=== PATIENT | female | born 1970 | race Caucasian/White ===

== ENCOUNTER 2019-11-22 09:25 | Emergency (ER) | payer MEDICARE, MEDICAID, SELFPAY ==
--- NOTE | ~2019-11-22 | XR_ITS ---
EXAMINATION: XR knee RT min 4V DATE: 11/22/2019 09:55 INDICATION: Right knee pain with movement following injury while exercising with palpable pop. TECHNIQUE: Anteroposterior, 2 oblique, sunrise and crosstable lateral views of the affected knee were obtained COMPARISON: None. FINDINGS: Alignment is normal. No fracture. Joint spaces appear normal. No joint effusion/layering lipohemarth rosis. Soft tissues are unremarkable. IMPRESSION: 1. Normal right knee radiographs. Reviewed, dictated and finalized at location A.
[2019-11-22 09:28] VITALS: BP 126/85; PULSE 92; RESP 18; TEMP 36.1; O2SAT 99
--- NOTE | 2019-11-22 10:05 | ED.LOWEXIN ---
HPI - Extremity Injury (Lower) General Chief Complaint: Extremity Injury, Lower Stated Complaint: R knee pain Time Seen by Provider: 11/22/19 10:05 Source: patient Mode of arrival: ambulatory History of Present Illness HPI Narrative: This patient is a 49 year old female who presents for evaluation of right knee pain. PAtient states she was exercising yesterday and started feeling tension to medial right knee. She has pain with movement of the knee. She took 2 aleve yesterday for her pain. MD complaint: knee injury Related Data Home Medications Medication Instructions Recorded Confirmed albuterol sulfate [Ventolin HFA] INHALATION 11/22/19 aripiprazole mg 11/22/19 clonazepam 11/22/19 dexlansoprazole [Dexilant] mg 11/22/19 escitalopram oxalate mg 11/22/19 gabapentin 11/22/19 lamotrigine 11/22/19 lithium carbonate 11/22/19 meclizine mg 11/22/19 rosuvastatin mg 11/22/19 zaleplon mg 11/22/19 Allergies Allergy/AdvReac Type Severity Reaction Status Date / Time No Known Allergies Allergy Unknown Verified 11/22/19 09:46 Review of Systems Review of Systems: All systems reviewed & are unremarkable except as noted in HPI and below Constitutional: Constitutional: Reports chills and Reports fever(s) PMFSH Past Medical History Medical History (Updated 11/22/19 @ 10:13 by Luba Gomez MD) Bipolar disorder COPD (chronic obstructive pulmonary disease) Family History Family History (Updated 10/10/17 @ 11:07 by DOCTOR UNKNOWN) Mother Family history of cardiovascular disease Family history of malignant neoplasm of gastrointestinal tract Depression Sibling Hypertension Family history of coronary artery disease Social History Social History Smoking status: Light tobacco smoker Gender identity (if verbalized by the patient): Female Exam Const: General: no acute distress and alert Orientation/consciousness: patient oriented x3 Eyes: EOM: EOMs intact bilaterally Resp: Effort & Inspection: normal respiratory effort Skin: General skin exam: normal color Rashes: no rashes Neuro: General: patient oriented x3 and moves all extremities Extrem: Other: pain with flexion of right knee, no swelling, no erythema, no deformity. TTP right medial knee Course Vital Signs Vital signs: Vital Signs Temperature 97 F L 11/22/19 09:28 Pulse Rate 92 11/22/19 09:28 Respiratory Rate 18 11/22/19 09:28 Blood Pressure 126/85 11/22/19 09:28 Pulse Oximetry 99 11/22/19 09:28 Temperature 97.5 F L 11/22/19 10:46 Pulse Rate 88 11/22/19 10:46 Respiratory Rate 16 11/22/19 10:46 Blood Pressure 139/70 11/22/19 10:46 Pulse Oximetry 99 11/22/19 10:46 MDM - Extremity Injury (Lower) Imaging Data Radiologist's impression: ITS Impressions Knee X-Ray 11/22/19 10:00 IMPRESSION: 1. Normal right knee radiographs. Discharge Plan Discharge Clinical Impression: Right knee sprain Qualifiers: Encounter type: initial encounter Involved ligament of knee: unspecified ligament Qualified Code(s): S83.91XA - Sprain of unspecified site of right knee, initial encounter Patient Disposition: Home, Self-Care Condition: Stable Instructions: Knee Sprain (ED), Knee Pain (ED) Additional Instructions: Continue to take aleve for your pain knee pain. Get a knee brace from a store such as [employer] for your knee. Follow up with your primary care physician. Prescriptions: New naproxen 500 mg tablet 500 mg PO BID PRN (Reason: pain) Qty: 20 RF: 0 No Action lamotrigine 150 mg tablet RF: 0 clonazepam 0.5 mg tablet RF: 0 meclizine 12.5 mg tablet RF: 0 lithium carbonate 300 mg capsule RF: 0 gabapentin 300 mg capsule RF: 0 zaleplon 10 mg capsule RF: 0 albuterol sulfate [Ventolin HFA] 90 mcg/actuation HFA aerosol inhaler INHALATION RF: 0 aripiprazole 5 mg tablet
[2019-11-22 10:46] VITALS: BP 139/70; PULSE 88; RESP 16; TEMP 36.4; O2SAT 99
== END 2019-11-22 10:50 | disposition home or self-care (01) ==
PROVIDERS: Emergency Provider General Practice; PCP Physician Assistant
DX: S83.91XA Sprain of unspecified site of right knee, initial encounter (principal); J44.9 Chronic obstructive pulmonary disease, unspecified; F31.9 Bipolar disorder, unspecified; F17.200 Nicotine dependence, unspecified, uncomplicated; X50.9XXA Other and unspecified overexertion or strenuous movements or postures, initial encounter
CPT/HCPCS: 73564; 99284

== ENCOUNTER 2020-10-17 16:43 | Emergency (ER) | payer MEDICARE, MEDICAID, SELFPAY ==
--- NOTE | ~2020-10-17 | XR_ITS ---
XR chest 1V portable DATE: 10/17/2020 17:32 INDICATION: Midsternal chest pain for 2 days, wheezing, shortness of breath. History of COPD and asth ma. TECHNIQUE: Portable upright AP chest on 10/17/2020 at 1735 hours COMPARISON: 02/26/2019 PA and lateral chest FINDINGS: Heart size is likely within normal range, not optimally evaluated on AP projection because of magnification. No hilar or mediastinal enlargement is evident. No pulmonary infiltrate or consolidation, pleural effusion or pulmonary vascular congestion or pneumo thorax is detected. IMPRESSION: No active disease Reviewed, dictated and finalized at location A. IMPRESSION: No active disease
[2020-10-17 16:49] VITALS: BP 149/87; PULSE 95; RESP 30; O2SAT 97
--- NOTE | 2020-10-17 17:08 | ED.SOB ---
HPI - SOB/Dyspnea General Chief Complaint: Shortness of Breath/Dyspnea Stated Complaint: SOB Time Seen by Provider: 10/17/20 16:53 Source: patient Mode of arrival: EMS Limitations: no limitations History of Present Illness HPI Narrative: This is a 50 year old female with history of anxiety and asthma who presents via EMS for evaluation of shortness of breath. She reports that she has been having sob, anxiety, cough x 3 days. She also reports chest lung tightness for 3 days. She reports she is having insurance issues so she does not have neb tx. She took klonopin today for her shortness of breath but it became worse. EMS found patient tachypneic so she was placed on CPAP, and she was given decadron with neb tx twice. She denies fever or chills. She is unsure if this is due to her anxiety or asthma. She does admit to drinking 2 beers today. Related Data Home Medications Medication Instructions Recorded Confirmed albuterol sulfate [Ventolin HFA] INHALATION 11/22/19 aripiprazole mg 11/22/19 clonazepam 11/22/19 dexlansoprazole [Dexilant] mg 11/22/19 escitalopram oxalate mg 11/22/19 gabapentin 11/22/19 lamotrigine 11/22/19 lithium carbonate 11/22/19 meclizine mg 11/22/19 rosuvastatin mg 11/22/19 zaleplon mg 11/22/19 Allergies Allergy/AdvReac Type Severity Reaction Status Date / Time No Known Allergies Allergy Unknown Verified 10/17/20 18:09 Review of Systems Review of Systems: All systems reviewed & are unremarkable except as noted in HPI and below PMFSH Past Medical History Medical History (Updated 10/17/20 @ 18:37 by Luba Gomez MD) Bipolar disorder COPD (chronic obstructive pulmonary disease) Family History Family History (Updated 10/10/17 @ 11:07 by DOCTOR UNKNOWN) Mother Family history of cardiovascular disease Family history of malignant neoplasm of gastrointestinal tract Depression Sibling Hypertension Family history of coronary artery disease Social History Social History Smoking status: Light tobacco smoker Gender identity (if verbalized by the patient): Female Exam Const: General: alert Orientation/consciousness: patient oriented x3 Other: patien tachypneic, anxiety Eyes: EOM: EOMs intact bilaterally Chest: Chest palpation & inspection: normal inspection of the chest Resp: Effort & Inspection: normal respiratory effort, no retractions and no use of accessory muscles Auscultation: clear to auscultation bilaterally Other: patient is able to speak in complete sentences Cardio: Rate: regular rate Rhythm: regular rhythm GI: GI Palp: Yes Soft to palpation, No Tenderness to palpation present (GI) and No Guarding due to palpation present (GI) Auscultation: normal bowel sounds Skin: General skin exam: normal color Rashes: no rashes Neuro: General: No patient oriented x3, No moves all extremities and CN's II-XI intact bilaterally Psych: Mental Status: mental status grossly normal Affect: normal affect Course Reevaluation(s) Reevaluation #1: Patient is sitting in bed comfortable. She is not tachypneic or wheezing. She has no shortness of breath. This appears to be asthma combined with her anxiety. This does not appear to be angina. I ambulated patient with pulse oximetry. Her oxygen saturation was 95-98% on room air while walking around entire nurses station. She states she is ready for discharge home. labs are unremarkable. Date: 10/17/20 Time: 18:33 Vital Signs Vital signs: Vital Signs Pulse Rate 95 10/17/20 16:49 Respiratory Rate 30 H 10/17/20 16:49 Blood Pressure 149/87 H 10/17/20 16:49 Pulse Oximetry 97 10/17/20 16:49 Pulse Rate 85 10/17/20 18:08 Respiratory Rate 18 10/17/20 18:08 Blood Pressure 124/73 10/17/20 18:08 Pulse Oximetry 95 10/17/20 18:08 MDM - SOB/Dyspnea Lab Data Attestation: I reviewed the patient's lab results. Result diagrams: 10/17/20 17:37 10/17/20
[2020-10-17 17:10] LABS: Base Excess ABG -4.6 mEq/l (+/-2.0); Carboxyhemoglobin 4.4 % THb (0-2.0); Device ROOM AIR; Fractional Inspired Oxygen 21 %; HCO3 ABG 18.4 mEq/l (22.0-26.0); Methemoglobin ABG 0.2 %THb (0-1.5); Modified Allen's Test Pass; Oxygen Saturation ABG 91.1 % (95.0-100.0); Oxyhemoglobin 85.6 % THb (90.0-100.0); PCO2 ABG 28.5 mmHg (35.0-45.0); PO2 ABG 57.6 mmHg (80.0-100.0); PO2 FiO2 Ratio Arterial Blood 2.74 %; Reduced Hemoglobin 9.8 %THb (0-5.0); Site Drawn LEFT RADIAL; Total Hemoglobin 13.3 g/dL (12.0-18.0); pH ABG 7.428 (7.350-7.450)
--- NOTE | 2020-10-17 17:31 | ECG_ITS ---
Measurements Intervals [place] Rate: 85 P: 13 IN: 139 QRS: 149 QRSD: 114 T: -8 QT: 375 QTc: 446 Interpretive Statements SINUS RHYTHM RIGHT AXIS DEVIATION INCOMPLETE RIGHT BUNDLE BRANCH BLOCK INFERIOR INFARCT, AGE INDETERMINATE NONSPECIFIC ST ELEVATION IN ANT/HIGH LAT LEADS BASELINE ARTIFACT- II, III, AVR, AVF, V1-V6 ABNORMAL ECG Electronically Signed On 10-17-2020 19:15:57 CDT by Sher Lui D.O.
[2020-10-17 17:42] LABS: Basophils Percent Auto 0.3 % (0.2-1.2); Eosinophils Absolute Auto 0.2 K/mm3 (0-0.3); Eosinophils Percent Auto 2.1 % (0-4.4); Hematocrit 38.3 % (37.0-47.0); Immature Granulocyte Absolute 0.03 K/mm3 (0.00-0.031); Immature Granulocyte Percent A 0.3 % (0-0.5); Lymphocytes Absolute Auto 1.28 K/mm3 (0.9-3.2); Lymphocytes Percent Auto 14.4 % (18.3-44.2); Mean Corpuscular HGB Conc 31.3 g/dl (32-36); Mean Corpuscular Hemoglobin 28.8 pg (26-34); Mean Corpuscular Volume 91.8 fl (80-100); Mean Platelet Volume 9.1 fl (7.4-10.4); Monocytes Absolute Auto 0.3 K/mm3 (0.1-0.6); Monocytes Percent Auto 3.6 % (2.6-8.5); Neutrophils Percent Auto 79.3 % (45.5-73.1); Platelet Count Result 241 k/mm3 (150-375); Red Blood Count 4.17 M/mm3 (4.2-5.4); Red Cell Distribution Width 15.2 % (11.5-14.5); White Blood Count 8.9 K/mm3 (4.5-10.0)
[2020-10-17 17:53] LABS: INR 0.9; Prothrombin Time 13.2 Seconds (11.1-14.7)
[2020-10-17 17:54] LABS: CRP < 0.5 mg/dL (<1.0); Magnesium 2.1 mg/dL (1.6-2.3); Partial Thromboplastin Time 24.8 SECONDS (22.3-36.8)
[2020-10-17 18:03] LABS: Troponin I < 0.012 ng/mL (0.000-0.034)
[2020-10-17 18:05] LABS: D Dimer 0.27 ug/mL (<0.48)
[2020-10-17 18:07] VITALS: O2SAT 95
[2020-10-17 18:08] VITALS: BP 124/73; PULSE 85; RESP 18; O2SAT 95
[2020-10-17 18:08] LABS: Alanine Aminotransferase 18 U/L (4-35); Albumin Level 4.5 g/dL (3.5-5.1); Alkaline Phosphatase 66 U/L (38-126); Anion Gap 11 mmol/L (8-16); Aspartate Amino Transferase 37 U/L (14-36); Bilirubin,Total 0.1 mg/dL (0.2-1.3); Blood Urea Nitrogen 5 mg/dL (7-17); Calcium 9.2 mg/dL (8.4-10.2); Carbon Dioxide 22 mmol/L (22-30); Chloride 110 mmol/L (98-107); Estimated Glomerular Filt Rate > 60; Glucose 105 mg/dL (65-105); Potassium 3.9 mmol/L (3.4-5.0); Sodium 143 mmol/L (137-145)
[2020-10-17 18:13] VITALS: PULSE 84; RESP 18; O2SAT 95
[2020-10-17 18:16] LABS: NT Pro B Type Natriuretic Pept 107 PG/ML (5-100)
[2020-10-17 19:03] VITALS: BP 124/73; PULSE 85; RESP 18; O2SAT 99
== END 2020-10-17 19:09 | disposition home or self-care (01) ==
PROVIDERS: Emergency Provider General Practice; PCP Physician Assistant
DX: J45.901 Unspecified asthma with (acute) exacerbation (principal); J44.9 Chronic obstructive pulmonary disease, unspecified; F17.200 Nicotine dependence, unspecified, uncomplicated; F31.9 Bipolar disorder, unspecified; F41.9 Anxiety disorder, unspecified; I45.10 Unspecified right bundle-branch block; R94.31 Abnormal electrocardiogram [ECG] [EKG]
CPT/HCPCS: 36415; 36600; 71045; 80053; 82375; 82805; 83050; 83735; 83880; 84484; 85025; 85380; 85610; 85730; 86140; 93005; 99284

== ENCOUNTER 2020-12-19 09:58 | Emergency (ER) | payer MEDICARE, MEDICAID, SELFPAY ==
--- NOTE | 2020-12-19 10:00 | PC.NURSE ---
left before triage. did not want to wait for exam room
== END 2020-12-19 10:00 | disposition left against medical advice (07) ==
PROVIDERS: PCP Physician Assistant
DX: Z53.21 Procedure and treatment not carried out due to patient leaving prior to being seen by health care provider (principal)
CPT/HCPCS: 99199

== ENCOUNTER 2021-01-20 23:02 | Emergency (ER) | payer MEDICARE, MEDICAID, SELFPAY ==
--- NOTE | ~2021-01-20 | CT_ITS ---
EXAMINATION: CT abdomen pelvis w con INDICATION: Left lower quadrant pain and rectal bleeding TECHNIQUE: Computed tomographic images of the abdomen and pelvis were obtained after the administrati on of 100 cc of Omnipaque 350 intravenous contrast. The dose-length product (DLP) was 1163.97 mGy-cm. Automated exposure control and iterative reconstruction technique were employed. COMPARISON: None available FINDINGS: Minimal dependent atelectasis is present in the lung bases. The heart size is normal. There is a large sliding hiatal hernia. Cysts of the liver measure up to 2.2 cm in the left hepatic lobe. The spleen, pancreas, gallbladder, and adrenal glands are normal. There is mild enlargement of the co mmon bile duct which measures up to 10 mm. There is a 7 mm nonobstructing stone of the right kidney u pper pole. There is a 5 mm nonobstructing stone of the left kidney upper pole. A circumaortic left re nal vein is noted. No pathologically enlarged abdominal or pelvic lymph nodes are identified. There i s no free intraperitoneal gas or evidence of bowel obstruction. There is a small fat-containing umbil ical hernia. An intramural fibroid of the anterior uterine body is noted. IMPRESSION: 1. No CT correlate for the patient's symptoms. 2. Mild enlargement of the common bile duct of unclear etiology or significance given the essentially normal liver function tests. Recommend correlation for right upper quadrant tenderness and consider further evaluation with ultrasound, MRCP, or endoscopy. 3. Bilateral nonobstructing nephrolithiasis. 4. Large sliding hiatal hernia. Reviewed, dictated and finalized at location B. IMPRESSION: 1. No CT correlate for the patient's symptoms. 2. Mild enlargement of the common bile duct of unclear etiology or significance given the essentially normal liver function tests. Recommend correlation for r ight upper quadrant tenderness and consider further evaluation with ultrasound, MRCP, or endoscopy. 3. Bilateral nonobstructing nephrolithiasis. 4. Large sliding hiatal hernia.
[2021-01-20 23:07] VITALS: BP 108/67; PULSE 81; RESP 18; TEMP 36.8; O2SAT 95
--- NOTE | 2021-01-20 23:18 | ED.GENADULT ---
HPI - General Adult General Chief complaint: Unspecified Stated complaint: rectal bleeding Time Seen by Provider: 01/20/21 23:07 History of Present Illness HPI narrative: Patient 50-year-old female presents the emergency department with chief complaint of rectal bleeding. Patient reports that for some time she has been having bouts of blood in her stool patient reports that she has noticed that at times when she goes to the bathroom there is blood that appears similar to like when she would have a. In the toilet water the patient also reports that there has been blood streaked on the stool patient states this been going on for over a month but today decided that it was time to possibly come to the emergency department to be evaluate. 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 Patient reports that this is unchanged since she has been seen by her doctors and they will order further testing on her Related Data Home Medications Medication Instructions Recorded Confirmed albuterol sulfate [Ventolin HFA] INHALATION 11/22/19 aripiprazole mg 11/22/19 clonazepam 11/22/19 dexlansoprazole [Dexilant] mg 11/22/19 escitalopram oxalate mg 11/22/19 gabapentin 11/22/19 lamotrigine 11/22/19 lithium carbonate 11/22/19 meclizine mg 11/22/19 rosuvastatin mg 11/22/19 zaleplon mg 11/22/19 Allergies Allergy/AdvReac Type Severity Reaction Status Date / Time No Known Allergies Allergy Unknown Verified 01/20/21 23:18 Review of Systems Review of Systems: Narrative: A 10 system review of systems was completed on the patient and is negative except for what is stated in the HPI. Nursing and ancillary documentation was reviewed. [facility] Past Medical History Medical History Bipolar disorder COPD (chronic obstructive pulmonary disease) Family History Family History Mother Family history of cardiovascular disease Family history of malignant neoplasm of gastrointestinal tract Depression Sibling Hypertension Family history of coronary artery disease Social History Social History Smoking status: Light tobacco smoker Gender identity (if verbalized by the patient): Female Exam Narrative: Exam Narrative: GENERAL: Well-appearing, well-nourished, and in no acute distress. HEAD: Normocephalic, atraumatic. EYES: PERRLA and EOMI. ENT: Nares clear, no rhinorrhea or epistaxis. Mucous membranes moist. NECK: Supple. CHEST: Clear to auscultation. No respiratory distress. HEART: Regular rate and rhythm. No murmur heard. Normal peripheral pulses. ABDOMEN: Soft, tender to palpation in the left lower quadrant, nondistended, normal active bowel sounds. : Rectal exam was negative for blood EXTREMITIES: Normal range of motion. No edema. SKIN: Warm, dry, no rash. NEURO: No focal deficits. Alert and oriented x3. PSYCH: Normal mood and affect. Course Vital Signs Vital signs: Vital Signs Temperature 36.8 C 01/20/21 23:07 Pulse Rate 81 01/20/21 23:07 Respiratory Rate 18 01/20/21 23:07 Blood Pressure 108/67 01/20/21 23:07 Pulse Oximetry 95 01/20/21 23:07 Temperature 36.8 C 01/20/21 23:07 Pulse Rate 81 01/20/21 23:07 Respiratory Rate 18 01/20/21 23:07 Blood Pressure 108/67 01/20/21 23:07 Pulse Oximetry 95 01/20/21 23:07 Medical Decision Making Vital Signs Vital Signs: Vital Signs Temperature 36.8 C 01/20/21 23:07 Pulse Rate 81 01/20/21 23:07 Respiratory Rate 18 01/20/21 23:07 Blood Pressure 108/67 01/20/21 23:07 Pulse Oximetry 95 01/20/21 23:07
[2021-01-20] MEDS: SODIUM CHLORIDE 0.9% IV 1,000 ML 999 ML IV CONT (23:45)
[2021-01-20] MEDS: ONDANSETRON INJ 4 MG/2 ML VIAL IV PUSH (23:45)
[2021-01-20 23:49] LABS: Basophils Percent Auto 0.4 % (0.2-1.2); Eosinophils Absolute Auto 0.2 K/mm3 (0-0.3); Eosinophils Percent Auto 2.7 % (0-4.4); Hematocrit 34.9 % (37.0-47.0); Hemoglobin 10.5 g/dL (12.0-15.0); Immature Granulocyte Absolute 0.01 K/mm3 (0.00-0.031); Immature Granulocyte Percent A 0.1 % (0-0.5); Lymphocytes Absolute Auto 1.98 K/mm3 (0.9-3.2); Mean Corpuscular HGB Conc 30.1 g/dl (32-36); Mean Corpuscular Hemoglobin 26.4 pg (26-34); Mean Corpuscular Volume 87.7 fl (80-100); Monocytes Absolute Auto 0.5 K/mm3 (0.1-0.6); Monocytes Percent Auto 7.6 % (2.6-8.5); Neutrophils Absolute Auto 4.3 K/mm3 (1.3-6.7); Neutrophils Percent Auto 61.2 % (45.5-73.1); Platelet Count Result 258 k/mm3 (150-375); Red Blood Count 3.98 M/mm3 (4.2-5.4); Red Cell Distribution Width 16.1 % (11.5-14.5); White Blood Count 7.1 K/mm3 (4.5-10.0)
[2021-01-20 23:51] LABS: Add Urine Microscopic? NO; Appearance Urine Clear (Clear); Bilirubin Urine Negative (Negative); Blood Urine Negative (Negative); Color Urine Colorless (Yellow); Glucose Urine UA Negative (Negative); Ketones Urine Negative (Negative); Leukocyte Esterase Ur Negative LEU/UL (Negative); Nitrate Urine Negative (Negative); Protein Urine Negative (Negative); Urobilinogen Urine Negative mg/dL (<2.0)
[2021-01-20 23:52] LABS: Alanine Aminotransferase 23 U/L (4-35); Albumin Level 4.3 g/dL (3.5-5.1); Alkaline Phosphatase 70 U/L (38-126); Anion Gap 12 mmol/L (8-16); Aspartate Amino Transferase 38 U/L (14-36); Bilirubin,Total 0.3 mg/dL (0.2-1.3); Blood Urea Nitrogen 6 mg/dL (7-17); Calcium 9.2 mg/dL (8.4-10.2); Carbon Dioxide 22 mmol/L (22-30); Chloride 101 mmol/L (98-107); Estimated CRCL calculation 106 ml/min; Estimated Glomerular Filt Rate > 60; Glucose 95 mg/dL (65-110); Lipase 190 U/L (23-300); Potassium 3.8 mmol/L (3.4-5.0); Sodium 135 mmol/L (137-145)
[2021-01-20 23:53] LABS: Lactic Acid Reflex 1.7 mmol/L (0.7-2.1)
[2021-01-21 00:06] LABS: Specific Grav Ur 1.003 (1.001-1.035)
[2021-01-21 00:36] VITALS: BP 95/61
[2021-01-21 00:45] VITALS: BP 110/69; PULSE 75; RESP 20; O2SAT 98
[2021-01-21 01:34] VITALS: BP 101/68; PULSE 72; RESP 15; O2SAT 96
== END 2021-01-21 01:34 | disposition home or self-care (01) ==
PROVIDERS: Emergency Provider Emergency Medicine; PCP Physician Assistant
DX: R10.84 Generalized abdominal pain (principal); J44.9 Chronic obstructive pulmonary disease, unspecified; F31.9 Bipolar disorder, unspecified; F17.200 Nicotine dependence, unspecified, uncomplicated
CPT/HCPCS: 36415; 74177; 80053; 81003; 81025; 83605; 83690; 85025; 96361; 96374; 99284; J2405; J7030; Q9967

== ENCOUNTER 2023-07-19 08:04 | Outpatient (CLI) | payer MEDICARE, MEDICAID, SELFPAY ==
--- NOTE | ~2023-07-19 | MM_ITS ---
EXAMINATION: MM screening neil BI w walt HISTORY: Screening TECHNIQUE: Craniocaudal and mediolateral oblique 3-D tomosynthesis images were obtained and synthetic 2-D images were generated. CAD analysis was submitted and interpreted. COMPARISON: Comparison to multiple prior studies sequentially, with oldest reviewed study dated 07/2015. BREAST PARENCHYMAL COMPOSITION: Breast composed of scattered areas of fibroglandular density FINDINGS: There is no evidence of suspicious mass, calcification, or architectural distortion to sugg est malignancy in either breast. There has been no suspicious interval change. IMPRESSION: 1. No mammographic evidence of malignancy. 2. Recommend routine screening mammography in one year. BI-RADS Category 1: Negative Reviewed, dictated and finalized at location A. [employer]
== END 2023-07-19 08:05 | disposition home or self-care (01) ==
PROVIDERS: Visit Provider Physician Assistant
DX: Z12.31 Encounter for screening mammogram for malignant neoplasm of breast (principal)
CPT/HCPCS: 77063; 77067

== ENCOUNTER 2023-08-25 08:34 | Emergency (ER) | payer MEDICARE, MEDICAID, SELFPAY ==
--- NOTE | ~2023-08-25 | XR_ITS ---
EXAMINATION: XR lumbar spine 2-3V DATE: 08/25/2023 09:28 INDICATION: Low back pain TECHNIQUE: Anteroposterior and lateral views of the lumbar spine, and cone-down lateral view of the l umbosacral junction were obtained. COMPARISON: Lumbar spine radiographs dated 10/17/[address] abdomen and pelvis dated 01/21/2021 FINDINGS: 12 degrees lumbar levoscoliosis. 4 mm anterolisthesis L4 on L5. Vertebral body heights are normal. Mu ltilevel mild disc height loss from T9-T10 through L5-S1 relatively sparing T11-T12. Moderate to yaneli re facet osteoarthritis bilaterally at L4-L5 and L5-S1. Mild facet osteoarthritis and more cephalad l umbar spine. Mild to moderate bilateral sacroiliac osteoarthritis. Bilateral nephrolithiasis with 5 m m stone the upper pole of the right kidney and 3 mm stone at the upper pole the left kidney. Visualiz ed posterior lung bases are clear. Normal bowel gas pattern. IMPRESSION: 1. Mild lumbar levoscoliosis with mild spondylosis. 2. Bilateral nephrolithiasis. Reviewed, dictated and finalized at location A. [place] [employer]
[2023-08-25] MEDS: SODIUM CHLORIDE 0.9% IV 1,000 ML 999 ML IV CONT (09:11)
[2023-08-25] MEDS: KETOROLAC 30 MG/ML VIAL (*BKC) IV PUSH (09:11)
[2023-08-25] MEDS: diazePAM INJ (*CRX) 10 MG/2 ML SYRINGE 5 MG IV PUSH (09:12)
[2023-08-25 09:35] VITALS: BP 110/80; PULSE 78; RESP 16; TEMP 36.6; O2SAT 100
[2023-08-25 09:44] LABS: Appearance Urine Clear (Clear); Bilirubin Urine Negative (Negative); Blood Urine Negative (Negative); Color Urine Yellow (Yellow); Glucose Urine UA Negative (Negative); Ketones Urine Negative (Negative); Leukocyte Esterase Ur Negative LEU/UL (Negative); Nitrate Urine Negative (Negative); Protein Urine Negative (Negative); Specific Grav Ur 1.009 (1.001-1.035); Urobilinogen Urine 0.2 mg/dL (<2.0)
[2023-08-25 09:52] LABS: Add Urine Microscopic? NO
[2023-08-25 09:55] VITALS: BP 106/78; PULSE 78; RESP 16; TEMP 36.5; O2SAT 98
[2023-08-25 10:06] LABS: Basophils Percent Auto 0.4 % (0.2-1.2); Eosinophils Absolute Auto 0.2 K/mm3 (0-0.3); Eosinophils Percent Auto 2.6 % (0-4.4); Hematocrit 39.8 % (37.0-47.0); Immature Granulocyte Absolute 0.02 K/mm3 (0.00-0.031); Immature Granulocyte Percent A 0.3 % (0-0.5); Lymphocytes Absolute Auto 1.19 K/mm3 (0.9-3.2); Lymphocytes Percent Auto 14.9 % (18.3-44.2); Mean Corpuscular HGB Conc 30.2 g/dl (32-36); Mean Corpuscular Hemoglobin 29.6 pg (26-34); Mean Platelet Volume 8.8 fl (7.4-10.4); Monocytes Absolute Auto 0.6 K/mm3 (0.1-0.6); Monocytes Percent Auto 7.8 % (2.6-8.5); Neutrophils Absolute Auto 5.9 K/mm3 (1.3-6.7); Platelet Count Result 213 k/mm3 (150-375); Red Blood Count 4.06 M/mm3 (4.2-5.4); Red Cell Distribution Width 15.9 % (11.5-14.5)
[2023-08-25 10:16] LABS: Alanine Aminotransferase 21 U/L (6-35); Albumin Level 3.7 g/dL (3.5-5.1); Alkaline Phosphatase 68 U/L (38-126); Anion Gap 6 mmol/L (8-16); Aspartate Amino Transferase 31 U/L (14-36); Bilirubin,Total 0.5 mg/dL (0.2-1.3); Blood Urea Nitrogen 10 mg/dL (7-17); Calcium 8.6 mg/dL (8.4-10.2); Carbon Dioxide 24 mmol/L (22-30); Chloride 107 mmol/L (98-107); Estimated Glomerular Filt Rate > 60; Glucose 90 mg/dL (65-110); Potassium 4.4 mmol/L (3.4-5.0); Sodium 137 mmol/L (137-145)
[2023-08-25 10:26] VITALS: BP 106/68; PULSE 73; RESP 16; TEMP 36.7; O2SAT 97
[2023-08-25 10:31] VITALS: BP 101/74; PULSE 76; RESP 16; TEMP 36.7; O2SAT 97
--- NOTE | 2023-08-25 11:03 | ED.BACK ---
HPI - Back Pain/Injury General Chief Complaint: Back Pain/Injury Stated Complaint: Back pain x1 week Time Seen by Provider: 08/25/23 08:36 History of Present Illness HPI Narrative: patient is a 53-year-old female who presents ER with left-sided low back pain. Ongoing for 1 week. Radiating in towards the groin. No urinary frequency urgency or dysuria. No history of kidney stone. Denies trauma. No numbness or tingling going down leg. Worse with bending and twisting. No alleviating factors. Related Data Home Medications Medication Instructions Recorded Confirmed albuterol sulfate 90 mcg/actuation inhalation 11/22/19 aerosol inhaler (Ventolin HFA) aripiprazole 5 mg tablet mg 11/22/19 clonazepam 0.5 mg tablet 11/22/19 dexlansoprazole 60 mg mg 11/22/19 capsule,biphase delayed release (Dexilant) escitalopram oxalate 5 mg tablet mg 11/22/19 gabapentin 300 mg capsule 11/22/19 lamotrigine 150 mg tablet 11/22/19 lithium carbonate 300 mg capsule 11/22/19 meclizine 12.5 mg tablet mg 11/22/19 rosuvastatin 10 mg tablet mg 11/22/19 zaleplon 10 mg capsule mg 11/22/19 Allergies Allergy/AdvReac Type Severity Reaction Status Date / Time No Known Allergies Allergy Unknown Verified 08/25/23 08:35 Review of Systems Constitutional: Constitutional: Reports no additional constitutional complaints Genitourinary: Genitourinary: Reports no additional female genitourinary complaints Musculoskeletal: Musculoskeletal: Reports back pain, Denies myalgias and Reports muscle cramps Neurologic: Reports system reviewed and no additional complaints, except as documented PMFSH Past Medical History Medical History Bipolar disorder COPD (chronic obstructive pulmonary disease) Family History Family History Mother Family history of cardiovascular disease Family history of malignant neoplasm of gastrointestinal tract Depression Sibling Hypertension Family history of coronary artery disease Social History Social History Smoking status: Light tobacco smoker Gender identity (if verbalized by the patient): Female Exam Narrative: GENERAL: Well-appearing, well-nourished, and in no acute distress. HEAD: Normocephalic, atraumatic. CHEST: Clear to auscultation. No respiratory distress. HEART: Regular rate and rhythm. Normal peripheral pulses. Back: Left-sided paraspinal muscle tenderness near L4-L5 without midline tenderness at T/L-spine. Visual inspection normal. EXTREMITIES: Normal range of motion. No edema. SKIN: Warm, dry, no rash. NEURO: Alert and oriented x3. PSYCH: Normal mood and affect. Course Course Emergency Course: Pain improved with Valium and Toradol. Also received IV fluid. Blood work and urine unremarkable. X-ray of the back without acute process. There are bilateral renal stones but there is no hematuria. Vital Signs Vital signs: Vital Signs Temperature 97.8 F 08/25/23 09:35 Pulse Rate 78 08/25/23 09:35 Respiratory Rate 16 08/25/23 09:35 Blood Pressure 110/80 08/25/23 09:35 Pulse Oximetry 100 08/25/23 09:35 Temperature 98.0 F 08/25/23 11:30 Pulse Rate 74 08/25/23 11:30 Respiratory Rate 16 08/25/23 11:30 Blood Pressure 108/70 08/25/23 11:30 Pulse Oximetry 98 08/25/23 11:30 MDM - Back Pain/Injury Lab Data 08/25/23 09:57 08/25/23 09:57 Labs: Lab Results 08/25/23 08/25/23 Range/Units 09:34 09:57 WBC 8.0 (4.5-10.0) K/mm3 RBC 4.06 L (4.2-5.4) M/mm3 Hgb 12.0 (12.0-15.0) g/dL Hct 39.8 (37.0-47.0) % MCV 98.0 (80-100) fl MCH 29.6 (26-34) pg MCHC 30.2 L (32-36) g/dl RDW 15.9 H (11.5-14.5) % Plt Count 213 (150-375) k/mm3 MPV 8.8 (7.4-10.4) fl Immature Gran % (Auto) 0.3 (
[2023-08-25 11:30] VITALS: BP 108/70; PULSE 74; RESP 16; TEMP 36.7; O2SAT 98
== END 2023-08-25 12:02 | disposition home or self-care (01) ==
PROVIDERS: Emergency Provider Emergency Medicine
DX: S39.012A Strain of muscle, fascia and tendon of lower back, initial encounter (principal); J44.9 Chronic obstructive pulmonary disease, unspecified; F31.9 Bipolar disorder, unspecified; F17.200 Nicotine dependence, unspecified, uncomplicated; N20.0 Calculus of kidney; X58.XXXA Exposure to other specified factors, initial encounter
CPT/HCPCS: 36415; 72100; 80053; 81003; 85025; 96361; 96374; 96375; 99284; J1885; J3360; J7030

== ENCOUNTER 2023-10-26 13:56 | Emergency (ER) | payer MEDICARE, MEDICAID, SELFPAY ==
[2023-10-26 13:57] VITALS: BP 157/69; PULSE 87; RESP 16; TEMP 36.6; O2SAT 98
--- NOTE | 2023-10-26 14:44 | PC.NURSE ---
pt left d/t wait time
--- NOTE | 2023-10-26 15:34 | PC.NURSE ---
spoke to pt, stated that she took out IV prior to leaving the dept.
== END 2023-10-26 15:08 | disposition left against medical advice (07) ==
PROVIDERS: PCP Physician Assistant
DX: J02.9 Acute pharyngitis, unspecified (principal)
CPT/HCPCS: 99199

== ENCOUNTER 2023-11-29 08:20 | Outpatient (CLI) | payer MEDICARE, MEDICAID, SELFPAY ==
[2023-11-29 09:06] LABS: Lithium < 0.2 mmol/L (0.6-1.2)
== END 2023-11-29 08:21 | disposition home or self-care (01) ==
LOC: ANHLAB 08:23
PROVIDERS: PCP Physician Assistant; Visit Provider Anesthesiology
DX: Z01.818 Encounter for other preprocedural examination (principal); F31.9 Bipolar disorder, unspecified
CPT/HCPCS: 36415; 80178

== ENCOUNTER 2023-11-30 08:16 | Outpatient (CLI) | payer MEDICARE, MEDICAID, SELFPAY ==
--- NOTE | ~2023-11-30 | US_ITS ---
Limited Abdominal Sonogram: Real-time sonographic imaging of the right upper quadrant was performed. Clinical History: Epigastric pain Findings: The liver appears normal with no evidence of solid mass lesion or bile duct dilatation. Ri ght hepatic cyst measures 2 cm in diameter. Main portal vein demonstrates normal direction of flow. T he gallbladder is well distended, and appears normal with no evidence of gallstone or wall thickening . The common bile duct measures 5 mm. The visualized pancreas, aorta, and IVC are unremarkable. Impression: No significant abnormality seen. Reviewed, dictated and finalized at location M. Impression: No significant abnormality seen.
== END 2023-11-30 08:17 ==
PROVIDERS: PCP Physician Assistant; Visit Provider Surgery
DX: R10.13 Epigastric pain (principal)
CPT/HCPCS: 76705

== ENCOUNTER 2023-12-01 09:58 | Day surgery (SDC) | payer MEDICARE, MEDICAID, SELFPAY ==
[2023-11-21 13:01] VITALS: BMI 38.3
--- NOTE | 2023-11-24 08:37 | SUR.PREOP ---
Spoke with Dr. Flores regarding pt's medication list. Per Dr. Flores, Pt okay to have procedure done at [facility]. Pt to get lithium level drawn before procedure, order placed, pt aware.
--- NOTE | 2023-11-30 08:49 | SUR.PREOP ---
Notified Dr. Mane of Pt's pre-op lithium level. Dr. Flores states understanding, no new orders at this time. Pt cleared for procedure at [facility] on 12/01/23.
--- NOTE | 2023-12-01 10:28 | WPDANESEPPF ---
Anes - Initial Pre Proc Eval Procedure: Operation Date: 12/01/23 11:30 Proposed Procedures p Esophagogastroduodenoscopy - Yuval Colunga MD Date/Time: 12/01/23 10:28 Surgeon: Yuval Colunga MD Pre Op Diagnosis: Eructation, Dysphagia, Gerd w/o Esophagitis Patient Data Age: 53 Gender: F Height: 1.7 m Weight: 107.5 kg Allergies Allergy/AdvReac Type Severity Reaction Status Date / Time No Known Allergies Allergy Unknown Verified 12/01/23 10:38 Home Medications Medication Instructions Recorded Confirmed Type albuterol sulfate 90 mcg/actuation 1 puff inhalation DIRECTED 11/22/19 12/01/23 History aerosol inhaler (Ventolin HFA) clonazepam 0.5 mg tablet 0.5 mg PO DIRECTED 11/22/19 12/01/23 History escitalopram oxalate 5 mg tablet 5 mg PO DIRECTED 11/22/19 12/01/23 History lamotrigine 150 mg tablet 150 mg PO DIRECTED 11/22/19 12/01/23 History lithium carbonate 300 mg capsule 300 mg PO DIRECTED 11/22/19 12/01/23 History meclizine 12.5 mg tablet 12.5 mg PO DIRECTED 11/22/19 12/01/23 History rosuvastatin 10 mg tablet 10 mg PO DIRECTED 11/22/19 12/01/23 History albuterol sulfate 2.5 mg/0.5 mL 5 mg inhalation Q6H PRN shortness 10/17/20 12/01/23 Rx solution for nebulization of breath or wheezing #30 ea ferrous sulfate 325 mg (65 mg 325 mg PO DAILY 11/04/23 12/01/23 History iron) tablet omeprazole 40 mg capsule,delayed 40 mg PO DAILY 11/04/23 12/01/23 History release fluticasone furoate 200 1 inh inhalation DIRECTED 11/23/23 12/01/23 History mcg-vilanterol 25 mcg/dose inhalation powder (Breo Ellipta) Patient hx anesthesia problems: none Family hx anesthesia problems: none Results Review: All pre-operative results and documents have been reviewed as part of the pre-operative evaluation. [facility] Past Medical History Medical History Bipolar disorder COPD (chronic obstructive pulmonary disease) Family History Family History Mother Family history of cardiovascular disease Family history of malignant neoplasm of gastrointestinal tract Depression Sibling Hypertension Family history of coronary artery disease Social History Social History (Updated 12/01/23 @ 11:14 by Car Mane DO) Smoking status: Current every day smoker Tobacco type: cigarettes Alcohol intake: current Alcohol use details: states 6-10 daily but because shes on vacation Substance use: never Substance use type: does not use Do You Feel Safe in your Home?: Yes Lack of Transportation: No Lack of Food: Never True Current Housing: I Have Housing Concerned About Future Housing: No Difficulty Paying Gas/Electric Bills: No Difficulty Paying for Meds: No Currently Unemployed: Decline to Answer Education: High School Diploma/GED Difficulty w/ Childcare or Family Care: No Gender identity (if verbalized by the patient): Female Anes - Eval Final PreProcedure Day of Procedure 12/01/23 10:28 Patient weight: obese Heart: regular rate and rhythm Lungs: clear to auscultation Airway: Mallampati scale class II Neurological: alert and oriented Last oral intake: >/= 8 hours ASA classification: III Emergent: no Anesthetic plan: proceed Anesthesia type and monitoring: general GIVS and standard monitoring Results Review: All pre-operative results and documents have been reviewed as part of the pre-operative evaluation. Informed Consent: The patient's anesthetic plan and its attendant risks and benefits were discussed with the patient/family/POA. Questions were solicited and answers provided to the satisfaction of the patient/family/POA.
[2023-12-01 10:45] VITALS: BMI 37.4
[2023-12-01 10:57] VITALS: BP 118/93; PULSE 65; RESP 18; TEMP 36.8; O2SAT 98
--- NOTE | 2023-12-01 11:03 | WPDHPUPDATE1 ---
History and Physical Update Update Date/Time: 12/01/23 11:03 History and Physical has been reviewed, including an updated exam of the patient. There are NO changes in the patient's condition. Risks, benefits, and alternatives have been discussed and questions answered. Patient agrees to proceed with procedure.
[2023-12-01] MEDS: LACTATED RINGERS 1,000 ML 150 ML IV CONT (11:07)
[2023-12-01 12:00] VITALS: BP 117/106; PULSE 77; RESP 14; O2SAT 97
[2023-12-01 12:10] VITALS: BP 125/71; PULSE 64; RESP 14; O2SAT 100
--- NOTE | 2023-12-01 12:17 | WPDANESPN ---
Anes - Prog Note Post-Op Date/Time: 12/01/23 12:17 Cardiovascular status: normal Respiratory status: normal Airway patency: baseline Mental status: baseline Post-Op hydration status: normal Vital Signs: Last Vital Signs Temp 36.8 C 12/01/23 10:57 Pulse 64 12/01/23 12:10 Resp 14 12/01/23 12:10 BP 125/71 12/01/23 12:10 Pulse Ox 100 12/01/23 12:10 O2 Del Method Room Air 12/01/23 12:10 Pain Score (VAS): 0 Post-procedural complaints: none Patient Feedback: Patient satisfied with anesthetic care. Other Findings: Patient vital signs back to baseline. Patient denies nausea and vomiting. Patient's pain under control. Patient OK for discharge.
[2023-12-01 12:20] VITALS: BP 110/67; PULSE 59; RESP 16; O2SAT 100
== END 2023-12-01 12:26 | disposition home or self-care (01) ==
PROVIDERS: PCP Physician Assistant; Visit Provider Internal Medicine Gastroenterology
PROC: 0DJ08ZZ Inspection of Upper Intestinal Tract, Via Natural or Artificial Opening Endoscopic (ICD-10-PCS; CPT 43235; principal; 2023-12-01 11:30)
DX: Q39.4 Esophageal web (principal); R13.19 Other dysphagia; K22.10 Ulcer of esophagus without bleeding; K44.9 Diaphragmatic hernia without obstruction or gangrene; R10.13 Epigastric pain
CPT/HCPCS: 43450; 43239

== ENCOUNTER 2024-07-24 09:00 | Emergency (ER) | payer MEDICARE, MEDICAID, SELFPAY ==
[2024-07-24] VITALS (27 sets, daily range): BP systolic 126–142; BP diastolic 82–91; PULSE 77–102; RESP 18–30; TEMP 36.3; O2SAT 95–100
--- NOTE | ~2024-07-24 | XR_ITS ---
EXAMINATION: XR chest 1V portable DATE: 07/24/2024 09:24 INDICATION: Chest pain. TECHNIQUE: A single frontal view of the chest was obtained. COMPARISON: Chest single view 10/17/2020, CT abdomen and pelvis 01/21/2021 FINDINGS: There is no pneumonia, pleural effusion, or pneumothorax. The heart size is normal. There i s a large hiatal hernia. IMPRESSION: 1. Large hiatal hernia. Reviewed, dictated and finalized at location B. INSPECTOR IMPRESSION: 1. Large hiatal hernia.
--- NOTE | ~2024-07-24 | CT_ITS ---
EXAMINATION: CTA BRAIN/CAROTID DATE: 07/24/2024 09:51 INDICATION: Left-sided numbness and tingling of the upper and lower extremities TECHNIQUE: Computed tomographic angiography (CTA) of the head and neck was performed with 100 mL Omni paque-350 intravenous contrast. Multiplanar reconstructions and maximum intensity projection 3D-recon structions of the carotid arteries and of the intracranial arteries were created by the technologist on a separate workstation. Precontrast CT of the head was also obtained. Automated exposure control and iterative reconstruction technique were employed.The dose-length product was 1710.48 mGy-cm. COMPARISON: None. FINDINGS: Carotid arteries: Visualized aortic arch antegrade vessels arising from the arch are normal in caliber with no atherosc lerotic plaque or dissection. There is no evident atherosclerotic plaque with 0% stenosis of the righ t and left carotid bulbs relative to normal distal artery lumen diameter (NASCET criteria). Mild cerv ical spondylosis. Cervical soft tissues are unremarkable. Mild biapical pleural-parenchymal scarring. Head: No acute intracranial hemorrhage, acute infarction or abnormal extra axial fluid collection. Ventricl es are normal and symmetric. No mass/mass effect. No abnormally enhancing brain lesions on the postco ntrast imaging. Mucosal thickening throughout the paranasal sinuses. Postoperative change of bilatera l antral window procedures and ethmoidectomies. The orbits and mastoid air cells are normal. Intracranial arteries There is no hemodynamically significant stenosis in the vertebral, basilar and internal carotid arter ies. Vertebral arteries are codominant. There are no aneurysms identified. Both A1 and P1 segments a re patent. Cerebral arterial arborization appears symmetric. IMPRESSION: 1. No evident atherosclerotic plaque with 0% stenosis of the right and left carotid bulbs relative to normal distal artery lumen diameter (NASCET criteria). 2. Unremarkable cerebral CT angiogram with no hemodynamically significant stenosis or aneurysm. 3. Normal brain. Reviewed, dictated and finalized at location A. TIC ATTACHER CHAINSTITCH IMPRESSION: 1. No evident atherosclerotic plaque with 0% stenosis of the right and left car otid bulbs relative to normal distal artery lumen diameter (NASCET criteria). 2. Unremarkable cerebral CT angiogram with no hemodynamically significant steno sis or aneurysm. 3. Normal brain.
--- NOTE | 2024-07-24 09:03 | ECG_ITS ---
Test Date: 2024-07-24 09:08:31 Measurements Intervals [place] Rate: 96 P: 52 GA: 158 QRS: -56 QRSD: 106 T: 12 QT: 370 QTc: 468 Interpretive Statements SINUS RHYTHM LEFT AXIS DEVIATION [QRS AXIS < -30] No previous ECG available for comparison Electronically Signed On 07-24-2024 10:50:09 [employer] by Abdullahi Vogel M.D.
--- NOTE | 2024-07-24 09:11 | PC.NURSE ---
Pt reports to Dr. Leslie numbness to left side of body intermittent. Neuro checks within normal limits
--- NOTE | 2024-07-24 09:14 | ED_ITS ---
HPI - General Adult General Chief complaint: Chest Pain Stated complaint: cp Time Seen by Provider: 07/24/24 09:02 History of Present Illness HPI narrative: 54-year-old female presenting to the emergency department for evaluation for multiple complaints including left arm tingling, gait instability, nausea vomiting and chest pressure. Patient does have a anxious affect upon arrival to the emergency department. Patient denies any chest pain but does report chest pressure. Patient reported left arm tingling but denies any weakness. Patient denies any prior history of coronary artery disease, denies any prior history of CVA. Patient states that she did drink alcohol yesterday but denies drinking alcohol daily and denies any history alcohol withdrawal. Related Data Home Medications ?Medication ?Instructions ?Recorded ?Confirmed ?Last Taken ?Type albuterol sulfate 90 mcg/actuation 1 puff inhalation DIRECTED 11/22/19 12/01/23 11/30/23 History aerosol inhaler (Ventolin HFA) clonazepam 0.5 mg tablet 0.5 mg PO DIRECTED 11/22/19 12/01/23 11/30/23 History escitalopram oxalate 5 mg tablet 5 mg PO DIRECTED 11/22/19 12/01/23 11/30/23 History lamotrigine 150 mg tablet 150 mg PO DIRECTED 11/22/19 12/01/23 11/30/23 History lithium carbonate 300 mg capsule 300 mg PO DIRECTED 11/22/19 12/01/23 11/30/23 History meclizine 12.5 mg tablet 12.5 mg PO DIRECTED 11/22/19 12/01/23 11/29/23 History rosuvastatin 10 mg tablet 10 mg PO DIRECTED 11/22/19 12/01/23 11/29/23 History ferrous sulfate 325 mg (65 mg 325 mg PO DAILY 11/04/23 12/01/23 11/29/23 History iron) tablet fluticasone furoate 200 1 inh inhalation DIRECTED 11/23/23 12/01/23 11/30/23 History mcg-vilanterol 25 mcg/dose inhalation powder (Breo Ellipta) Allergies Allergy/AdvReac Type Severity Reaction Status Date / Time No Known Allergies Allergy Unknown Verified 12/01/23 10:38 Review of Systems 2 Review of Systems: All systems reviewed & are unremarkable except as noted in HPI and below PMFSH Past Medical History Medical History Bipolar disorder COPD (chronic obstructive pulmonary disease) Family History Family History Mother Family history of cardiovascular disease Family history of malignant neoplasm of gastrointestinal tract Depression Sibling Hypertension Family history of coronary artery disease Social History Social History (Updated 12/01/23 @ 11:14 by Car Mane DO) Smoking status: Current every day smoker Tobacco type: cigarettes Alcohol intake: current Alcohol use details: states 6-10 daily but because shes on vacation Substance use: never Substance use type: does not use Do You Feel Safe in your Home?: Yes Lack of Transportation: No Lack of Food: Never True Current Housing: I Have Housing Concerned About Future Housing: No Difficulty Paying Gas/Electric Bills: No Difficulty Paying for Meds: No Currently Unemployed: Decline to Answer Education: High School Diploma/GED Difficulty w/ Childcare or Family Care: No Gender identity (if verbalized by the patient): Female Exam 2 Narrative: APPEARANCE: Ill-appearing HEAD: normocephalic, atraumatic. EYES: PERRLA/EOMI, conjunctivae clear. NOSE: Normal no drainage EARS:TMS clear with good light reflex. THROAT: Pharynx clear, no exudate. NECK: Supple. No adenopathy, no masses. RESPIRATORY: Airway patent, respirations nonlabored. Clear to auscultation bilaterally, no rales, rhonchi, wheezing. CARDIOVASCULAR: Regular rate and rhythm without murmurs rubs or gallops. ABDOMINAL: Soft, nontender, nondistended, normal bowel sounds MUSCULOSKELETAL: Moves all extremities. Strength/ROM intact, No edema, No calf tenderness. NEURO: Alert. Cranial nerves II through XII intact. Grossly intact. No drift, normal strength weakness. SKIN: Warm, dry. Normal Color PSYCHIATRIC: Anxious affect Course Vital Signs Vital signs: Vital Signs Temperature 97.4 F L 07/24/24 08:59 Pulse Rate 95 07/24/24 08:59 Respiratory Rate 24 H 07/24/24 08:59 Pulse Oximetry 96 07/24/24 08:59 Oxygen Delivery Room Air 07/24/24 08:59 Temperature 97.4 F L 07/24/24 08:59 Pulse Rate 90 07/24/24 13:39 Respiratory Rate 25 H 07/24/24 13:39 Blood Pressure 131/84 07/24/24 12:31 Pulse Oximetry 97 07/24/24 13:39 Oxygen Delivery Room Air 07/24/24 09:09 Medical Decision Making MDM Narrative Medical decision making narrative: 54 of female presents emergency department for evaluation for intermittent chest pain. Patient is afebrile with no leukocytosis and hemoglobin of 15.1. INR 0.9. Patient has no acute abnormalities on her CMP, patient had negative serial troponins with a negative lipase. Urine shows no acute abnormalities patient's of the alcohol was 19. CT head neck was negative. On re-evaluation patient reports she does feel improved. Patient was able ambulate without any issues. Differential Diagnosis Differential Diagnosis: Influenza, COVID, RSV, ACS, pneumonia, pneumothorax, alcohol withdrawal, CVA Vital Signs Vital Signs: Vital Signs Temperature 97.4 F L 07/24/24 08:59 Pulse Rate 95 07/24/24 08:59 Respiratory Rate 24 H 07/24/24 08:59 Pulse Oximetry 96 07/24/24 08:59 Oxygen Delivery Room Air 07/24/24 08:59 Temperature 97.4 F L 07/24/24 08:59 Pulse Rate 90 07/24/24 13:39 Respiratory Rate 25 H 07/24/24 13:39 Blood Pressure 131/84 07/24/24 12:31 Pulse Oximetry 97 07/24/24 13:39 Oxygen Delivery Room Air 07/24/24 09:09 Lab Data 07/24/24 09:11 07/24/24 09:11 Labs: Lab Results 07/24/24 07/24/24 07/24/24 Range/Units 09:11 10:04 12:13 WBC 8.3 (4.5-10.0) K/mm3 RBC 4.74 (4.2-5.4) M/mm3 Hgb 15.1 H D (12.0-15.0) g/dL Hct 46.4 (37.0-47.0) % MCV 97.9 (80-100) fl MCH 31.9 (26-34) pg MCHC 32.5 (32-36) g/dl RDW 13.9 (11.5-14.5) % Plt Count 288 (150-375) k/mm3 MPV 8.9 (7.4-10.4) fl Immature Gran % (Auto) 0.5 (0-0.5) % Neut % (Auto) 74.4 H (45.5-73.1) % Lymph % (Auto) 15.1 L (18.3-44.2) % [place] % (Auto) 7.4 (2.6-8.5) % Eos % (Auto) 2.1 (0-4.4) % Baso % (Auto) 0.5 (0.2-1.2) % Lymph # (Auto) 1.25 (0.9-3.2) K/mm3 [place] # (Auto) 0.6 (0.1-0.6) K/mm3 Eos # (Auto) 0.2 (0-0.3) K/mm3 Baso # (Auto) 0.0 (0.0-0.1) K/mm3 Abs Immat Gran (auto) 0.04 H (0.00-0.031) K/mm3 Absolute Neuts (auto) 6.2 (1.3-6.7) K/mm3 Absolute Nucleated RBC 0.000 (0.0-0.012) K/mm3 Nucleated RBC % 0.0 (0.0-0.2) % PT 12.8 (11.1-14.7) Seconds INR 0.9 APTT 27.2 (22.3-36.8) Seconds Sodium 138 (137-145) mmol/L Potassium 4.4 (3.4-5.0) mmol/L Chloride 104 (98-107) mmol/L Carbon Dioxide 20 L (22-30) mmol/L Anion Gap 14 H (4-12) mmol/L BUN 9 (7-17) mg/dL Creatinine 0.59 L (0.7-1.0) mg/dL Estim Creat Clear Calc 119 ml/min Estimated GFR > 60 (59 - ) Glucose 89 (65-110) mg/dL POC Capillary Glucose (65-105) mg/dl Calcium 8.8 (8.4-10.2) mg/dL Total Bilirubin 0.6 (0.2-1.3) mg/dL AST 48 H (14-36) U/L ALT 36 H (6-35) U/L Alkaline Phosphatase 80 (38-126) U/L Troponin I < 0.012 < 0.012 (0.000-0.034) ng/mL NT-Pro-B Natriuret Pep 55 (19.9-100) pg/mL Total Protein 7.0 (6.3-8.2) g/dL Albumin 4.1 (3.5-5.1) g/dL Lipase 112 (23-300) U/L Urine Color Yellow (Yellow) Urine Appearance Cloudy H (Clear) Urine pH 7.0 (5.0-9.0) Ur Specific [place] > 1.045 H (1.001-1.035) Urine Protein Trace (Negative) mg/dL Urine Glucose (UA) Negative (Negative) mg/dL Urine Ketones 1+ H (Negative) mg/dL Ur Blood (Man) Negative (Negative) Urine Nitrate Negative (Negative) Urine Bilirubin Negative (Negative) Urine Urobilinogen 1.0 (<2.0) mg/dL Add Ur Microanalysis Reviewed Leukocyte Esterase Rfl Negative (Negative) AZEB/UL Urine RBC 3-5 H (0-2) /hpf Urine WBC 0-5 (0-3) /hpf Ur Squamous Epith Cells Moderate (Few) /hpf Urine Bacteria Rare /hpf Urine Casts 0-2 Urine Mucus Present /lpf Ethyl Alcohol 19 (<10) mg/dL 07/24/24 Range/Units 12:16 WBC (4.5-10.0) K/mm3 RBC (4.2-5.4) M/mm3 Hgb (12.0-15.0) g/dL Hct (37.0-47.0) % MCV (80-100) fl MCH (26-34) pg MCHC (32-36) g/dl RDW (11.5-14.5) % Plt Count (150-375) k/mm3 MPV (7.4-10.4) fl Immature Gran % (Auto) (0-0.5) % Neut % (Auto) (45.5-73.1) % Lymph % (Auto) (18.3-44.2) % [place] % (Auto) (2.6-8.5) % Eos % (Auto) (0-4.4) % Baso % (Auto) (0.2-1.2) % Lymph # (Auto) (0.9-3.2) K/mm3 [place] # (Auto) (0.1-0.6) K/mm3 Eos # (Auto) (0-0.3) K/mm3 Baso # (Auto) (0.0-0.1) K/mm3 Abs Immat Gran (auto) (0.00-0.031) K/mm3 Absolute Neuts (auto) (1.3-6.7) K/mm3 Absolute Nucleated RBC (0.0-0.012) K/mm3 Nucleated RBC % (0.0-0.2) % PT (11.1-14.7) Seconds INR APTT (22.3-36.8) Seconds Sodium (137-145) mmol/L Potassium (3.4-5.0) mmol/L Chloride (98-107) mmol/L Carbon Dioxide (22-30) mmol/L Anion Gap (4-12) mmol/L BUN (7-17) mg/dL Creatinine (0.7-1.0) mg/dL Estim Creat Clear Calc ml/min Estimated GFR (59 - ) Glucose (65-110) mg/dL POC Capillary Glucose 75 (65-105) mg/dl Calcium (8.4-10.2) mg/dL Total Bilirubin (0.2-1.3) mg/dL AST (14-36) U/L ALT (6-35) U/L Alkaline Phosphatase (38-126) U/L Troponin I (0.000-0.034) ng/mL NT-Pro-B Natriuret Pep (19.9-100) pg/mL Total Protein (6.3-8.2) g/dL Albumin (3.5-5.1) g/dL Lipase (23-300) U/L Urine Color (Yellow) Urine Appearance (Clear) Urine pH (5.0-9.0) Ur Specific [place] (1.001-1.035) Urine Protein (Negative) mg/dL Urine Glucose (UA) (Negative) mg/dL Urine Ketones (Negative) mg/dL Ur Blood (Man) (Negative) Urine Nitrate (Negative) Urine Bilirubin (Negative) Urine Urobilinogen (<2.0) mg/dL Add Ur Microanalysis Leukocyte Esterase Rfl (Negative) AZEB/UL Urine RBC (0-2) /hpf Urine WBC (0-3) /hpf Ur Squamous Epith Cells (Few) /hpf Urine Bacteria /hpf Urine Casts Urine Mucus /lpf Ethyl Alcohol (<10) mg/dL Imaging Data Radiologist's impression: Impressions Chest X-Ray 07/24/24 09:33 IMPRESSION: 1. Large hiatal hernia. Head/Neck CTA 07/24/24 09:52 IMPRESSION: 1. No evident atherosclerotic plaque with 0% stenosis of the right and left carotid bulbs relative to normal distal artery lumen diameter (NASCET criteria). 2. Unremarkable cerebral CT angiogram with no hemodynamically significant stenosis or aneurysm. 3. Normal brain. Discharge Plan Discharge Clinical Impression: Chest pressure, Tingling of left upper extremity Patient Disposition: Home, Self-Care Condition: Stable Instructions: Antibiotic Form, Chest Pain (ED) Additional Instructions: Have close follow-up with your primary care physician for additional outpatient cardiac testing. If you have any worsening symptoms then please call or return to the emergency department. Patient Language: Citizen Of [place] Prescriptions: No Action ferrous sulfate 325 mg (65 mg iron) tablet 325 mg PO DAILY lamotrigine 150 mg tablet 150 mg PO DIRECTED clonazepam 0.5 mg tablet 0.5 mg PO DIRECTED meclizine 12.5 mg tablet 12.5 mg PO DIRECTED lithium carbonate 300 mg capsule 300 mg PO DIRECTED albuterol sulfate [Ventolin HFA] 90 mcg/actuation HFA aerosol inhaler 1 puff INHALATION DIRECTED rosuvastatin 10 mg tablet 10 mg PO DIRECTED escitalopram oxalate 5 mg tablet 5 mg PO DIRECTED albuterol sulfate 2.5 mg/0.5 mL solution for nebulization 5 mg inhalation Q6H PRN (Reason: shortness of breath or wheezing) Qty: 30 0RF omeprazole 40 mg capsule,delayed release(DR/EC) 40 mg PO BIDAC Qty: 60 12RF fluticasone furoate-vilanterol [Breo Ellipta] 200-25 mcg/dose blister with device 1 inh INHALATION DIRECTED Follow-up/Referrals: Virgen,ROD Wiley [Primary Care Provider] -
[2024-07-24 09:18] LABS: Basophils Percent Auto 0.5 % (0.2-1.2); Eosinophils Absolute Auto 0.2 K/mm3 (0-0.3); Eosinophils Percent Auto 2.1 % (0-4.4); Hematocrit 46.4 % (37.0-47.0); Hemoglobin 15.1 g/dL (12.0-15.0); Immature Granulocyte Absolute 0.04 K/mm3 (0.00-0.031); Immature Granulocyte Percent A 0.5 % (0-0.5); Lymphocytes Absolute Auto 1.25 K/mm3 (0.9-3.2); Lymphocytes Percent Auto 15.1 % (18.3-44.2); Mean Corpuscular HGB Conc 32.5 g/dl (32-36); Mean Corpuscular Hemoglobin 31.9 pg (26-34); Mean Corpuscular Volume 97.9 fl (80-100); Mean Platelet Volume 8.9 fl (7.4-10.4); Monocytes Absolute Auto 0.6 K/mm3 (0.1-0.6); Monocytes Percent Auto 7.4 % (2.6-8.5); Neutrophils Absolute Auto 6.2 K/mm3 (1.3-6.7); Neutrophils Percent Auto 74.4 % (45.5-73.1); Platelet Count Result 288 k/mm3 (150-375); Red Blood Count 4.74 M/mm3 (4.2-5.4); Red Cell Distribution Width 13.9 % (11.5-14.5); White Blood Count 8.3 K/mm3 (4.5-10.0)
[2024-07-24 09:29] LABS: Alanine Aminotransferase 36 U/L (6-35); Albumin Level 4.1 g/dL (3.5-5.1); Alkaline Phosphatase 80 U/L (38-126); Anion Gap 14 mmol/L (4-12); Aspartate Amino Transferase 48 U/L (14-36); Bilirubin,Total 0.6 mg/dL (0.2-1.3); Blood Urea Nitrogen 9 mg/dL (7-17); Calcium 8.8 mg/dL (8.4-10.2); Carbon Dioxide 20 mmol/L (22-30); Chloride 104 mmol/L (98-107); Estimated CRCL calculation 119 ml/min; Estimated Glomerular Filt Rate > 60; Glucose 89 mg/dL (65-110); Lipase 112 U/L (23-300); Potassium 4.4 mmol/L (3.4-5.0); Sodium 138 mmol/L (137-145)
[2024-07-24 09:30] LABS: Ethanol 19 mg/dL (<10); INR 0.9; Prothrombin Time 12.8 Seconds (11.1-14.7)
[2024-07-24 09:31] LABS: Partial Thromboplastin Time 27.2 Seconds (22.3-36.8)
[2024-07-24 09:41] LABS: NT Pro B Type Natriuretic Pept 55 pg/mL (19.9-100); Troponin I < 0.012 ng/mL (0.000-0.034)
[2024-07-24] MEDS: LORazepam INJ (*CRX) 2 MG/ML VIAL 1 MG IV PUSH (10:22)
--- NOTE | 2024-07-24 10:23 | PC.NURSE ---
ativan given late due to IV pulled out.
[2024-07-24 10:27] LABS: Add Urine Microscopic? YES; Appearance Urine Cloudy (Clear); Bacteria Urine Rare /hpf; Bilirubin Urine Negative (Negative); Blood Urine Negative (Negative); Color Urine Yellow (Yellow); Glucose Urine UA Negative (Negative); Ketones Urine 1+ mg/dL (Negative); Leukocyte Esterase Ur Negative LEU/UL (Negative); Mucus Urine Present /lpf; Need Manual Microscopic Reviewed; Nitrate Urine Negative (Negative); Non Pathogenic Casts 0-2; Protein Urine Trace mg/dL (Negative); Specific Grav Ur > 1.045 (1.001-1.035); Squamous Epithelial Cell Urine Moderate /hpf (Few); WBC Urine 0-5 /hpf (0-3)
--- NOTE | 2024-07-24 10:52 | PC.NURSE ---
Pt states is feeling better after Ativan
[2024-07-24 12:18] LABS: Glucose Point of Care 75 mg/dl (65-105)
[2024-07-24 12:46] LABS: Troponin I < 0.012 ng/mL (0.000-0.034)
== END 2024-07-24 13:47 | disposition home or self-care (01) ==
PROVIDERS: Emergency Provider Emergency Medicine; PCP Physician Assistant
DX: R07.89 Other chest pain (principal); R20.2 Paresthesia of skin; F31.9 Bipolar disorder, unspecified; F17.210 Nicotine dependence, cigarettes, uncomplicated
CPT/HCPCS: 36415; 70496; 70498; 71045; 80053; 81001; 82077; 82948; 83690; 83880; 84484; 85025; 85610; 85730; 93005; 96374; 99284; J2060; Q9967

== ENCOUNTER 2024-07-27 07:15 | Emergency (ER) | payer MEDICARE, MEDICAID, SELFPAY ==
--- NOTE | ~2024-07-27 | XR_ITS ---
EXAMINATION: XR chest 2V DATE: 07/27/2024 07:57 INDICATION: Chest pain. TECHNIQUE: Frontal and lateral views of the chest were obtained. COMPARISON: Chest single view 07/24/2024 FINDINGS: There is mild atelectasis at left lung base. No pleural effusion or pneumothorax. The heart size is normal. There is a large hiatal hernia. IMPRESSION: 1. Mild atelectasis at left lung base. 2. Large hiatal hernia. Reviewed, dictated and finalized at location B. GENCY DEPARTMENT COORDINATOR
--- NOTE | 2024-07-27 07:17 | ECG_ITS ---
Test Date: 2024-07-27 07:20:38 Measurements Intervals [place] Rate: 76 P: 26 IN: 181 QRS: -26 QRSD: 110 T: 7 QT: 422 QTc: 475 Interpretive Statements SINUS RHYTHM POSSIBLE ANTERIOR MYOCARDIAL INFARCTION , OF INDETERMINATE AGE [30 ms Q WAVE IN V3/V4, OR R < 0.2 mV IN V4] Compared to ECG 07/24/2024 12:20:14 Myocardial infarct finding now present Left-axis deviation no longer present Electronically Signed On 07-27-2024 11:57:01 OFFICE ADMINISTRATION by Bessy Naidu
[2024-07-27 07:18] VITALS: BP 157/87; PULSE 82; RESP 17; TEMP 36.4; O2SAT 97
[2024-07-27 07:35] VITALS: PULSE 69
[2024-07-27 07:51] LABS: Basophils Percent Auto 0.3 % (0.2-1.2); Eosinophils Absolute Auto 0.1 K/mm3 (0-0.3); Eosinophils Percent Auto 1.8 % (0-4.4); Hematocrit 46.3 % (37.0-47.0); Hemoglobin 15.2 g/dL (12.0-15.0); Immature Granulocyte Absolute 0.03 K/mm3 (0.00-0.031); Immature Granulocyte Percent A 0.4 % (0-0.5); Immature Platelet Fraction Pct 2.5 % (0.9-11.2); Lymphocytes Absolute Auto 0.86 K/mm3 (0.9-3.2); Lymphocytes Percent Auto 11.3 % (18.3-44.2); Mean Corpuscular HGB Conc 32.8 g/dl (32-36); Mean Corpuscular Hemoglobin 32.2 pg (26-34); Mean Corpuscular Volume 98.1 fl (80-100); Mean Platelet Volume 9.3 fl (7.4-10.4); Monocytes Absolute Auto 0.6 K/mm3 (0.1-0.6); Monocytes Percent Auto 7.9 % (2.6-8.5); Neutrophils Percent Auto 78.3 % (45.5-73.1); Platelet Count Result 239 k/mm3 (150-375); Red Blood Count 4.72 M/mm3 (4.2-5.4); Red Cell Distribution Width 13.8 % (11.5-14.5); White Blood Count 7.6 K/mm3 (4.5-10.0)
[2024-07-27 07:56] LABS: Prothrombin Time 13.4 Seconds (11.1-14.7)
[2024-07-27 07:57] LABS: Alanine Aminotransferase 50 U/L (6-35); Albumin Level 4.4 g/dL (3.5-5.1); Alkaline Phosphatase 74 U/L (38-126); Anion Gap 10 mmol/L (4-12); Aspartate Amino Transferase 61 U/L (14-36); Blood Urea Nitrogen 4 mg/dL (7-17); Calcium 9.2 mg/dL (8.4-10.2); Carbon Dioxide 27 mmol/L (22-30); Chloride 99 mmol/L (98-107); Estimated CRCL calculation 125 ml/min; Estimated Glomerular Filt Rate > 60; Glucose 96 mg/dL (65-110); Lipase 94 U/L (23-300); Partial Thromboplastin Time 27.7 Seconds (22.3-36.8); Potassium 3.9 mmol/L (3.4-5.0); Sodium 136 mmol/L (137-145)
[2024-07-27 08:06] LABS: Troponin I < 0.012 ng/mL (0.000-0.034)
[2024-07-27 09:04] VITALS: BP 138/82; PULSE 78; RESP 18; O2SAT 96
[2024-07-27] MEDS: MORPHINE SULFATE (*CRX) 4 MG/ML INJ IV PUSH (09:36)
[2024-07-27] MEDS: ONDANSETRON INJ 4 MG/2 ML VIAL IV PUSH (09:36)
[2024-07-27 10:13] VITALS: BP 127/70; PULSE 83; RESP 15; O2SAT 95
--- NOTE | 2024-07-27 11:06 | ED.CHESTPAIN ---
HPI - Chest Pain General Chief Complaint: Chest Pain Stated Complaint: Chest & abd pain Time Seen by Provider: 07/27/24 07:26 Source: patient Mode of arrival: ambulatory Limitations: no limitations History of Present Illness HPI narrative: 54-year-old with a history of anxiety, hyperlipidemia, hiatal hernia care with the complaints of chest pain, abdominal pain. Pain states that she has been having retrosternal pain for last few days she also states that she was seen here in the ER few days ago for the same. She is on Prilosec once a day. No history of nausea or vomiting. Related Data Home Medications ?Medication ?Instructions ?Recorded ?Confirmed ?Last Taken ?Type albuterol sulfate 90 mcg/actuation 1 puff inhalation DIRECTED 11/22/19 12/01/23 11/30/23 History aerosol inhaler (Ventolin HFA) clonazepam 0.5 mg tablet 0.5 mg PO DIRECTED 11/22/19 12/01/23 11/30/23 History escitalopram oxalate 5 mg tablet 5 mg PO DIRECTED 11/22/19 12/01/23 11/30/23 History lamotrigine 150 mg tablet 150 mg PO DIRECTED 11/22/19 12/01/23 11/30/23 History lithium carbonate 300 mg capsule 300 mg PO DIRECTED 11/22/19 12/01/23 11/30/23 History meclizine 12.5 mg tablet 12.5 mg PO DIRECTED 11/22/19 12/01/23 11/29/23 History rosuvastatin 10 mg tablet 10 mg PO DIRECTED 11/22/19 12/01/23 11/29/23 History ferrous sulfate 325 mg (65 mg 325 mg PO DAILY 11/04/23 12/01/23 11/29/23 History iron) tablet fluticasone furoate 200 1 inh inhalation DIRECTED 11/23/23 12/01/23 11/30/23 History mcg-vilanterol 25 mcg/dose inhalation powder (Breo Ellipta) Allergies Allergy/AdvReac Type Severity Reaction Status Date / Time No Known Allergies Allergy Unknown Verified 07/27/24 07:25 Review of Systems Review of Systems: All systems reviewed & are unremarkable except as noted in HPI and below Constitutional: Constitutional: Reports no additional constitutional complaints Eyes: Eyes: Reports no additional eye complaints ENT: Reports system reviewed and no additional complaints, except as documented Cardiovascular: Cardiovascular: Reports as per HPI and Reports no additional cardiovascular complaints Respiratory: Respiratory: Reports no additional respiratory complaints Gastrointestinal: Gastrointestinal: Reports abdominal pain Musculoskeletal: Musculoskeletal: Reports no additional musculoskeletal complaints PMFSH Past Medical History Medical History COPD (chronic obstructive pulmonary disease) Bipolar disorder Family History Family History Mother Family history of cardiovascular disease Family history of malignant neoplasm of gastrointestinal tract Depression Sibling Hypertension Family history of coronary artery disease Social History Social History Smoking status: Current every day smoker Tobacco type: cigarettes Alcohol intake: current Alcohol use details: states 6-10 daily but because shes on vacation Substance use: never Substance use type: does not use Do You Feel Safe in your Home?: Yes Lack of Transportation: No Lack of Food: Never True Current Housing: I Have Housing Concerned About Future Housing: No Difficulty Paying Gas/Electric Bills: No Difficulty Paying for Meds: No Currently Unemployed: Decline to Answer Education: High School Diploma/GED Difficulty w/ Childcare or Family Care: No Gender identity (if verbalized by the patient): Female Exam Narrative: GENERAL: Well-appearing, well-nourished, and in no acute distress. HEAD: Normocephalic, atraumatic. EYES: PERRLA and EOMI. ENT: Nares clear, no rhinorrhea or epistaxis. Mucous membranes moist. NECK: Supple. CHEST: Clear to auscultation. No respiratory distress. HEART: Regular rate and rhythm. No murmur heard. Normal peripheral pulses. ABDOMEN: Soft, nontender, nondistended, normal active bowel sounds. EXTREMITIES: Normal range of motion. No edema. SKIN: Warm, dry, no rash. NEURO: No focal deficits. Alert and oriented x3. PSYCH: Normal mood and affect. Course Course Emergency Course: Informed her about the lab work, EKG findings. Recommended to take Nexium twice a day, follow-up with the GI doctor. Cause of her pain most likely could be from hiatal hernia Vital Signs Vital signs: Vital Signs Temperature 36.4 C L 07/27/24 07:18 Pulse Rate 82 07/27/24 07:18 Respiratory Rate 17 07/27/24 07:18 Blood Pressure 157/87 H 07/27/24 07:18 Pulse Oximetry 97 07/27/24 07:18 Oxygen Delivery Room Air 07/27/24 07:18 Temperature 36.4 C L 07/27/24 07:18 Pulse Rate 83 07/27/24 10:13 Respiratory Rate 15 07/27/24 10:13 Blood Pressure 127/70 07/27/24 10:13 Pulse Oximetry 95 07/27/24 10:13 Oxygen Delivery Room Air 07/27/24 07:36 MDM - Chest Pain Differential Diagnosis Differential diagnosis: Likely stable angina, atypical chest pain and chest pain Medical Records Data Attestation: I reviewed the patient's medical records. Lab Data Attestation: I reviewed the patient's lab results. 07/27/24 07:35 07/27/24 07:35 Labs: Lab Results 07/27/24 Range/Units 07:35 WBC 7.6 (4.5-10.0) K/mm3 RBC 4.72 (4.2-5.4) M/mm3 Hgb 15.2 H (12.0-15.0) g/dL Hct 46.3 (37.0-47.0) % MCV 98.1 (80-100) fl MCH 32.2 (26-34) pg MCHC 32.8 (32-36) g/dl RDW 13.8 (11.5-14.5) % Plt Count 239 (150-375) k/mm3 MPV 9.3 (7.4-10.4) fl Immature Gran % (Auto) 0.4 (0-0.5) % Neut % (Auto) 78.3 H (45.5-73.1) % Lymph % (Auto) 11.3 L (18.3-44.2) % [place] % (Auto) 7.9 (2.6-8.5) % Eos % (Auto) 1.8 (0-4.4) % Baso % (Auto) 0.3 (0.2-1.2) % Lymph # (Auto) 0.86 L (0.9-3.2) K/mm3 [place] # (Auto) 0.6 (0.1-0.6) K/mm3 Eos # (Auto) 0.1 (0-0.3) K/mm3 Baso # (Auto) 0.0 (0.0-0.1) K/mm3 Abs Immat Gran (auto) 0.03 (0.00-0.031) K/mm3 Absolute Neuts (auto) 6.0 (1.3-6.7) K/mm3 Absolute Nucleated RBC 0.000 (0.0-0.012) K/mm3 Nucleated RBC % 0.0 (0.0-0.2) % % Immature Plt Fraction 2.5 (0.9-11.2) % PT 13.4 (11.1-14.7) Seconds INR 1.0 APTT 27.7 (22.3-36.8) Seconds Sodium 136 L (137-145) mmol/L Potassium 3.9 (3.4-5.0) mmol/L Chloride 99 (98-107) mmol/L Carbon Dioxide 27 (22-30) mmol/L Anion Gap 10 (4-12) mmol/L BUN 4 L D (7-17) mg/dL Creatinine 0.56 L (0.7-1.0) mg/dL Estim Creat Clear Calc 125 ml/min Estimated GFR > 60 (59 - ) Glucose 96 (65-110) mg/dL Calcium 9.2 (8.4-10.2) mg/dL Total Bilirubin 1.0 (0.2-1.3) mg/dL AST 61 H (14-36) U/L ALT 50 H (6-35) U/L Alkaline Phosphatase 74 (38-126) U/L Troponin I < 0.012 (0.000-0.034) ng/mL Total Protein 7.0 (6.3-8.2) g/dL Albumin 4.4 (3.5-5.1) g/dL Lipase 94 (23-300) U/L Imaging Data Radiologist's impression: ITS Impressions Chest X-Ray 07/27/24 08:04 IMPRESSION: 1. Mild atelectasis at left lung base. 2. Large hiatal hernia. ECG Data EKG #1: ECG completion date: 07/27/24 ECG completion time: 07:20 EKG Interpretation: normal rate (76), sinus rhythm, no ectopy, non-specific ST changes, no ST changes, normal QT and NL axis Discharge Plan Discharge Clinical Impression: Atypical chest pain Patient Disposition: Home, Self-Care Condition: Stable Instructions: Chest Pain (ED) Additional Instructions: Continue home medication can not take med Prilosec twice a day. Follow with the GI doctor. Patient Language: [place] Prescriptions: No Action ferrous sulfate 325 mg (65 mg iron) tablet 325 mg PO DAILY lamotrigine 150 mg tablet 150 mg PO DIRECTED clonazepam 0.5 mg tablet 0.5 mg PO DIRECTED meclizine 12.5 mg tablet 12.5 mg PO DIRECTED lithium carbonate 300 mg capsule 300 mg PO DIRECTED albuterol sulfate [Ventolin HFA] 90 mcg/actuation HFA aerosol inhaler 1 puff INHALATION DIRECTED rosuvastatin 10 mg tablet 10 mg PO DIRECTED escitalopram oxalate 5 mg tablet 5 mg PO DIRECTED albuterol sulfate 2.5 mg/0.5 mL solution for nebulization 5 mg inhalation Q6H PRN (Reason: shortness of breath or wheezing) Qty: 30 0RF omeprazole 40 mg capsule,delayed release(DR/EC) 40 mg PO BIDAC Qty: 60 12RF fluticasone furoate-vilanterol [Breo Ellipta] 200-25 mcg/dose blister with device 1 inh INHALATION DIRECTED Follow-up/Referrals: Virgen,ROD Wiley [Primary Care Provider] - Farshad Wild MD [Physician] - Time of Disposition: 11:11
== END 2024-07-27 11:40 | disposition home or self-care (01) ==
PROVIDERS: Emergency Provider Family Medicine; PCP Physician Assistant
DX: R07.89 Other chest pain (principal); J44.9 Chronic obstructive pulmonary disease, unspecified; E78.5 Hyperlipidemia, unspecified; F41.9 Anxiety disorder, unspecified; F31.9 Bipolar disorder, unspecified; F17.210 Nicotine dependence, cigarettes, uncomplicated; Z79.899 Other long term (current) drug therapy; K44.9 Diaphragmatic hernia without obstruction or gangrene; R94.31 Abnormal electrocardiogram [ECG] [EKG]
CPT/HCPCS: 36415; 71046; 80053; 83690; 84484; 85025; 85055; 85610; 85730; 93005; 96374; 96375; 99284; J2270; J2405

== ENCOUNTER 2024-08-08 08:14 | Outpatient (CLI) | payer MEDICARE, MEDICAID, SELFPAY ==
--- NOTE | ~2024-08-08 | MM_ITS ---
EXAMINATION: MM screening neil BI w walt HISTORY: Screening TECHNIQUE: Craniocaudal and mediolateral oblique 3-D tomosynthesis images were obtained and synthetic 2-D images were generated. CAD analysis was submitted and interpreted. COMPARISON: Comparison to multiple prior studies sequentially, with oldest reviewed study dated 08/03. BREAST PARENCHYMAL COMPOSITION: Not dense: There are scattered areas of fibroglandular density. FINDINGS: There is no evidence of suspicious mass, calcification, or architectural distortion to sugg est malignancy in either breast. There has been no suspicious interval change. IMPRESSION: 1. No mammographic evidence of malignancy. 2. Recommend routine screening mammography in one year. BI-RADS Category 1: Negative Reviewed, dictated and finalized at location [] [employer] LOSS PREVENTION
--- OUTSIDE RECORDS SUMMARY | 2024-08-08 08:26 | XMS_ITS | Referral Summary ---
Author Organization [facility] [address] Address [address] [place] [phone] Care Team Providers Care Nurse Office Name Role Phone Inez New Primary Care Provider [phone] Candido Guerin MD Unavailable [phone] Encounters Date Type Department Care Team Description 08/01/2024 11:00 AM CREDIT AND COLLECTIONS REPRESENTATIVE Telemedicine [address] [place] [phone] Inez New [place] BMI 40.0-44.9, adult (HCC) (Primary Dx); Morbid obesity (HCC) 07/30/2024 Telephone [place] [id number] [place] [phone] Inez New [place] 07/26/[address] [place] [phone] Inez New [place] 07/26/[address] [place] [phone] Inez New [place] 07/25/[address] [place] [phone] Inez New PA 07/18/2024 Orders Only [address] [place] [phone] Inez New [place] 06/13/[address] [place] [phone] Inez New PA Medical Question/Miscellaneou s 06/11/2024 9:30 AM CREDIT AND COLLECTIONS REPRESENTATIVE Office Visit [address] [place] [phone] Inez New PA Annual physical exam (Primary Dx); Type 2 diabetes mellitus without complication, without long-term current use of insulin ([facility]/HCC) (HCC); Breast cancer screening by mammogram; Chronic obstructive pulmonary disease, unspecified COPD type ([facility]); Vitamin D deficiency; Gastroesophageal reflux disease without esophagitis; Type 2 diabetes mellitus with hyperlipidemia ([facility]); Mental health problem; Fatigue, unspecified type; SHERRY (obstructive sleep apnea); Cigarette smoker; Need for influenza vaccination; BMI 45.0-49.9, adult ([facility]); Morbid obesity (HCC) 05/25/2024 Orders Only [address] [place] [phone] Inez New PA Elevated TSH (Primary Dx); Type 2 diabetes mellitus with hyperlipidemia ([facility]); Vitamin D deficiency; Hyperlipidemia, unspecified hyperlipidemia type; Hyperthyroidism 05/24/[address] [place] [phone] Inez New PA labs need done prior to 06/11 visit 05/24/2024 Orders Only [address] [place] [phone] Inez New [place] 05/18/2024 10:00 AM CREDIT AND COLLECTIONS REPRESENTATIVE Office Visit [facility] Otolaryngology [address] [place] [phone] Jaskaran Khan II, MD PND (post-nasal drip) (Primary Dx); Dysfunction of both eustachian tubes; Bilateral impacted cerumen 05/18/2024 9:30 AM CREDIT AND COLLECTIONS REPRESENTATIVE Procedure visit [facility] Otolaryngology [address] [place] [address] Sofie Kellogg Au.D. Sensorineural hearing loss (SNHL) of right ear with unrestricted hearing of left ear (Primary Dx) 05/17/2024 Telephone [facility] [address] [place] [address] Nieves Perez [facility] Sleep Study Results 05/17/2024 Orders Only [facility] [address] [phone] Jeffy Manuel MD SHERRY (obstructive sleep apnea) (Primary Dx) 05/16/2024 7:41 PM CREDIT AND COLLECTIONS REPRESENTATIVE - 05/16/2024 11:59 PM CREDIT AND COLLECTIONS REPRESENTATIVE Hospital Encounter [facility] [address] [place] [address] SHERRY (obstructive sleep apnea) Discharge Disposition: Discharge to home or self care 05/15/[address] [phone] Jeffy Manuel MD from Last 3 Months Allergies No known active allergies Medications magnesium oxide-Mg AA chelate 300 mg capsule 300 mg daily Active clonazePAM (KlonoPIN) 0.5 mg tablet Take 1 tablet (0.5 mg total) by mouth 2 (two) times a day 0 10/28/19 19 Active cholecalciferol (VITAMIN D-3) 1,000 unit tablet 1 tablet (1,000 Units total) daily Active potassium gluconate 2.5 mEq tablet 75 mg daily Active meclizine (ANTIVERT) 12.5 mg tabletIndications: Vertigo TAKE 1 TABLET BY MOUTH THREE TIMES A DAY NEEDED FOR DIZZINESS 90 tablet 01/28/20 22 Active fluticasone propionate (FLONASE) 50 mcg/actuation nasal spray Administer 1 spray into each nostril daily 3 each 1 09/07/19 24 Active lamoTRIgine (LaMICtal) 200 mg tablet Take 1 tablet (200 mg total) by mouth 2 (two) times a day 03/06/20 24 Active blood-glucose meter miscIndications:Ty pe 2 diabetes mellitus without complication, without long-term current use of insulin ([facility]/HCC) ([facility]) Use daily for monitoring of diabetes. 1 each 03/20/20 24 Active blood glucose diagnostic (glucose blood) stripIndications:T ype 2 diabetes mellitus with hyperlipidemia ([facility]) Use test strip to check blood glucose level once daily. Patient has an One Touch Verio Reflex Glucose Meter so will need test strips to be used with it. 100 each 11 03/27/20 24 025 Active lancets (onetouch ultrasoft) miscIndications:Ty pe 2 diabetes mellitus with hyperlipidemia ([facility]) Check blood sugar one time a day. 100 each 4 03/27/20 24 Active rosuvastatin (CRESTOR) 20 mg tabletIndications: Hyperlipidemia, unspecified hyperlipidemia type Take 1 tablet (20 mg total) by mouth daily 90 tablet 1 04/30/20 24 Active FLUoxetine (PROzac) 40 mg capsule Take 1 capsule (40 mg total) by mouth daily Active albuterol HFA (Ventolin HFA) 90 mcg/actuation inhaler Inhale 2 puffs every 4 (four) hours as needed for wheezing 3 each 3 06/11/20 24 Active metFORMIN (GLUCOPHAGE) 500 mg tablet Take 1 tablet (500 mg total) by mouth daily with breakfast 90 tablet 2 06/11/20 24 Active omeprazole (PriLOSEC) 40 mg capsule Take 1 capsule (40 mg total) by mouth daily 90 capsule 1 06/11/20 24 Active fluticasone furoate-vilanteroL (Breo Ellipta) 200-25 mcg/dose diskus inhalerIndications :Chronic obstructive pulmonary disease, unspecified COPD type ([facility]) Inhale 1 puff daily Rinse mouth with water after use. Do not swallow. 90 each 1 07/25/19 25 Active cetirizine (ZyrTEC) 10 mg tablet Take 1 tablet (10 mg total) by mouth daily 90 tablet 09/27/19 21 025 Discontin ued(Thera py completed ) fluticasone furoate-vilanteroL (Breo Ellipta) 200-25 mcg/dose diskus inhalerIndications :Chronic obstructive pulmonary disease, unspecified COPD type (HCC) Inhale 1 puff daily Rinse mouth with water after use. Do not swallow. 90 each 1 02/15/20 24 025 Discontin ued(Reord er) ipratropium (ATROVENT) 42 mcg (0.06 %) nasal sprayIndications:P ND (post-nasal drip) Administer 2 sprays into each nostril 3 (three) times a day 30 mL 3 05/18/20 24 025 Discontin ued(Thera py completed ) Active Problems Problem Noted Date Diagnosed Date Need for influenza vaccination 06/11/2024 Assessment & Plan (06/11/2024 12:16 PM CREDIT AND COLLECTIONS REPRESENTATIVE): Flu vaccine updated in the office today Annual physical exam 06/11/2024 Assessment & Plan (06/11/2024 12:16 PM CREDIT AND COLLECTIONS REPRESENTATIVE): Encouraged healthy lifestyle, good nutrition and exercise. Encouraged Calcium and Vitamin D and weight bearing exercise for bone health. Reviewed immunizations Reviewed age appropirate screenings. BMI 40.0-44.9, adult 06/11/2024 Assessment & Plan (08/01/2024 11:21 AM CREDIT AND COLLECTIONS REPRESENTATIVE): Discussed the patient's BMI. The BMI is above average. BMI management plan is completed. BMI Follow-up includes: nutrition counseling, exercise counseling and education provided. Assessment & Plan (06/11/2024 12:16 PM CREDIT AND COLLECTIONS REPRESENTATIVE): Discussed the patient's BMI. The BMI is above average. BMI management plan is completed. BMI Follow-up includes: nutrition counseling, exercise counseling and education provided. Elevated TSH 03/17/2024 Assessment & Plan (03/18/2024 8:08 PM CDT): Check labs Abnormal thyroid screen (blood) 03/17/2024 Type 2 diabetes mellitus wit hout complication, without long-term current use of insulin ([facility]) 03/17/2024 Assessment & Plan (06/11/2024 12:15 PM CREDIT AND COLLECTIONS REPRESENTATIVE): Stressed importance of continued A1c control to minimize the residential effects of diabetes. Bring accuchecks to office when instructed to do so. Check A1c about every 3-6 months. Take medication as prescribed. Get annual eye exam. Encouraged GLENDY/Statin if able to tolerate. Encouraged weight control and encouraged diabetic diet and exercise. A1c is much improved with the metformin. Continue 500 daily Assessment & Plan (03/18/2024 8:08 PM CDT): New Diagnosis Diabetes. Discussed with patient at length diabetes, pathogenesis, residential sequela, end organ damage, diet/exercise/weight loss, and medication options for treatment. Reviewed A1c, normal values, goals of treatment and need to monitor about every 90 days until well regulated. Discussed importance of annual DM eye exams. Reviewed benefits of GLENDY and Statin as a diabetic. Discussed how DM affects the kidney's and ways to monitor. Reviewed increased CV risk and importance of tight control. Reviewed foot care and need to wear shoes to check feet on a regular basis to avoid residential problems. Offered referral to compounding and finishing supervisor. Start metformin 500 mg 1 tablet daily with breakfast. Follow with the labs in 4 months Eustachian tube dysfunction 09/07/2023 Assessment & Plan (03/18/2024 8:07 PM CDT): Patient with Eustachian tube dysfunction. Continue with Flonase antihistamine and Mucinex. She states she just is not getting any relief. Ready to return to Dr. Zaman, ENT who she has seen in the past. Will place referral Assessment & Plan (09/07/2023 10:34 PM CREDIT AND COLLECTIONS REPRESENTATIVE): Ears are clear. Suspect eustachian tube dysfunction. Recommend Flonase, mucinex and antihistamine. If symptoms persist, may need ENT referral. Morbid obesity 07/22/2022 Assessment & Plan (08/01/2024 11:22 AM CREDIT AND COLLECTIONS REPRESENTATIVE): Discussed the patient's BMI. The BMI is above average. BMI management plan is completed. BMI Follow-up includes: nutrition counseling, exercise counseling and education provided. Assessment & Plan (06/11/2024 12:15 PM CREDIT AND COLLECTIONS REPRESENTATIVE): Discussed the patient's BMI. The BMI is above average. BMI management plan is completed. BMI Follow-up includes: nutrition counseling, exercise counseling and education provided. Assessment & Plan (03/18/2024 8:06 PM CDT): Discussed the patient's BMI. The BMI is above average. BMI management plan is completed. BMI Follow-up includes: nutrition counseling, exercise counseling and education provided. Assessment & Plan (09/07/2023 10:31 PM CREDIT AND COLLECTIONS REPRESENTATIVE): Discussed the patient's BMI. The BMI is above average. BMI management plan is completed. BMI Follow-up includes: nutrition counseling, exercise counseling and education provided. Patient has an obesity-related condition (not limited to: hypertension, obstructive sleep apnea, osteoarthritis, hyperlipidemia, diabetes, etc.). Therefore, morbid obesity may be documented for patients with a BMI between 35.00-39.99. Assessment & Plan (05/21/2023 3:46 PM CREDIT AND COLLECTIONS REPRESENTATIVE): Discussed the patient's BMI. The BMI is above average. BMI management plan is completed. BMI Follow-up includes: nutrition counseling, exercise counseling and education provided. Patient has an obesity-related condition (not limited to: hypertension, obstructive sleep apnea, osteoarthritis, hyperlipidemia, diabetes, etc.). Therefore, morbid obesity may be documented for patients with a BMI between 35.00-39.99. Assessment & Plan (07/22/2022 2:01 PM CREDIT AND COLLECTIONS REPRESENTATIVE): Discussed the patient's BMI. The BMI is above average. BMI management plan is completed. BMI Follow-up includes: nutrition counseling, exercise counseling and education provided. Patient has an obesity-related condition (not limited to: hypertension, obstructive sleep apnea, osteoarthritis, hyperlipidemia, diabetes, etc.). Therefore, morbid obesity may be documented for patients with a BMI between 35.00-39.99. Symptomatic anemia 05/28/2022 Assessment & Plan (09/07/2023 10:29 PM CREDIT AND COLLECTIONS REPRESENTATIVE): Known anemia. Has had transfusion. Continue to follow with Dr. Guerin. She has not had labs in over a year so will go ahead and order. Cervical nerve root impingement 01/18/2021 Assessment & Plan (04/08/2021 2:54 PM CDT): Patient states her symptoms are currently resolved. Will continue to monitor. If she has return of symptoms will pursue further workup in physical therapy. Assessment & Plan (01/18/2021 11:41 PM CDT): Status post fall. CT of the C-spine in the ER showed and an impingement at C5 and 6. She is symptomatic with numbness into the fingers and significant pain. Recommend MRI of the C-spine. Recommend starting physical therapy. And continue an NSAID. Patient sees psychiatrist and is on multiple psychiatric medications. Encouraged her to contact her psychiatrist to see if we could start her on gabapentin. Patient has been on narcotics and has not really been helping. s/p right knee arthroscopic partial medial and lateral meniscectomy by Dr Costa on 01/22/2020 01/30/2020 Overview (01/30/2020): January 22, 2020 Assessment & Plan (03/26/2020 8:15 PM CDT): Continue progressive range of motion and strengthening. Follow-up in 4 weeks. Assessment & Plan (01/30/2020 10:06 AM CDT): We discussed the risks, benefits and alternatives. Continue progressive range of motion and strengthening per physician directed exercises. Refill hydrocodone. Follow-up in 4 weeks for repeat evaluation. Primary osteoarthritis of right knee 12/23/2019 Assessment & Plan (09/26/2020 8:15 PM CDT): Continue per Dr. Guajardo Assessment & Plan (06/14/2020 5:55 PM CREDIT AND COLLECTIONS REPRESENTATIVE): Refer back to Ortho. Offered PT. She declined. Encouraged weight loss to decrease the load on the joint. Assessment & Plan (03/26/2020 8:15 PM CDT): We discussed the risks, benefits and alternatives of treatment options for osteoarthritis of the knee. From least invasive to most invasive: The only thing to slow the progression of osteoarthritis is weight loss. For every pound lost 4 to 6 pounds of stress is relieved from the knee. Formal physical therapy to help with flexion, extension, mobility and strength. Unloading braces to unload the affected side. The possibility of TENs unit to control pain and swelling. Nonsteroidal anti-inflammatories with the potential of cardiac and GI upset. Steroid and Visco supplement injection. And eventual total knee arthroplasty. After going over the risks, benefits and alternatives all questions are answered steroid is injected today. Begin medial unloading brace. Follow up in 4 weeks. Consider Visco supplement roughly 3 months after knee arthroscopy if needed. Assessment & Plan (01/14/2020 8:28 PM CDT): We discussed the risks, benefits and alternatives of treatment options for osteoarthritis of the knee. From least invasive to most invasive: The only thing to slow the progression of osteoarthritis is weight loss. For every pound lost 4 to 6 pounds of stress is relieved from the knee. Formal physical therapy to help with flexion, extension, mobility and strength. Unloading braces to unload the affected side. The possibility of TENs unit to control pain and swelling. Nonsteroidal anti-inflammatories with the potential of cardiac and GI upset. Steroid and Visco supplement injection. And eventual total knee arthroplasty. Assessment & Plan (12/23/2019 1:20 PM CDT): We discussed the risks, benefits and alternatives of treatment options for osteoarthritis of the knee. From least invasive to most invasive: The only thing to slow the progression of osteoarthritis is weight loss. For every pound lost 4 to 6 pounds of stress is relieved from the knee. Formal physical therapy to help with flexion, extension, mobility and strength. Unloading braces to unload the affected side. The possibility of TENs unit to control pain and swelling. Nonsteroidal anti-inflammatories with the potential of cardiac and GI upset. Steroid and Visco supplement injection. And eventual total knee arthroplasty. After going over the risks, benefits and alternatives the patient will begin on a Medrol Dosepak, begin meloxicam 15 mg. Patient would like to get an MRI as she feels like she has already failed Naprosyn, Tylenol, activity modification without relief. Follow-up after MRI Breast cancer screening by mammogram 09/11/2019 Assessment & Plan (06/11/2024 12:15 PM CREDIT AND COLLECTIONS REPRESENTATIVE): Mammogram order provided Assessment & Plan (08/23/2021 9:43 PM CREDIT AND COLLECTIONS REPRESENTATIVE): Mammogram order provided Assessment & Plan (09/26/2020 8:30 PM CDT): Mammogram order provided Assessment & Plan (09/11/2019 9:21 AM CDT): Mammogram order provided Sciatica of right side 06/17/2019 Assessment & Plan (06/17/2019 6:14 PM CREDIT AND COLLECTIONS REPRESENTATIVE): Voltaren gel Exercise/Start PT Followup if sxs worsen or don't improved. Vertigo 02/28/2019 Assessment & Plan (03/18/2024 8:06 PM CDT): Uses meclizine p.r.n. with good results Assessment & Plan (09/26/2020 8:29 PM CDT): antivert prn Assessment & Plan (03/15/2020 11:09 AM CDT): Persitent vertigo. 02/2020 CT head was essentially negative. She has finally agreed to vestibular therapy. Will still change neurology referral from [place] to [place] as patient able to arranage transportation easier. Assessment & Plan (09/11/2019 9:19 AM CDT): This is a significant, separately identifiable problem that was evaluated and managed on the same day as the wellness exam Vertigo may be a prodrome to her migraines. Will have her try excedrin migraine at the onset of sxs. Will refill the meclizine to have available as she states it does work. Has appt with Neurologist for further evaluation of the vertigo/GUZMAN Assessment & Plan (03/04/2019 11:00 PM CDT): Meclizine prn. Discussed PT but she would like to monitor at this point. Call if sxs worsen. Type 2 diabetes mellitus with hyperlipidemia 09/2018 Assessment & Plan (06/11/2024 11:51 AM CREDIT AND COLLECTIONS REPRESENTATIVE): Stressed importance of continued A1c control to minimize the termite technician effects of diabetes. Bring accuchecks to office when instructed to do so. Check A1c about every 3-6 months. Take medication as prescribed. Get annual eye exam. Encouraged GLENDY/Statin if able to tolerate. Encouraged weight control and encouraged diabetic diet and exercise. Encouraged patient to follow low fat/low chol diet like the Mediterranean diet. Increase good fats in the diet. Increase exercise. Monitor labs as needed. Continue with metformin. A1c has improved to 5.9. Tolerating the metformin without difficulty Continue Crestor 20 Assessment & Plan (03/18/2024 8:04 PM CDT): Stressed importance of continued A1c control to minimize the termite technician effects of diabetes. Bring accuchecks to office when instructed to do so. Check A1c about every 3-6 months. Take medication as prescribed. Get annual eye exam. Encouraged GLENDY/Statin if able to tolerate. Encouraged weight control and encouraged diabetic diet and exercise. Encouraged patient to follow low fat/low chol diet like the Mediterranean diet. Increase good fats in the diet. Increase exercise. Monitor labs as needed. Continue Crestor Assessment & Plan (09/07/2023 10:30 PM CREDIT AND COLLECTIONS REPRESENTATIVE): Encouraged patient to follow low fat/low chol diet like the Mediterranean diet. Increase good fats in the diet. Increase exercise. Monitor labs as needed. Continue with Crestor Assessment & Plan (05/21/2023 3:44 PM CREDIT AND COLLECTIONS REPRESENTATIVE): Encouraged patient to follow low fat/low chol diet like the Mediterranean diet. Increase good fats in the diet. Increase exercise. Monitor labs as needed. Continue Crestor Assessment & Plan (07/22/2022 1:49 PM CREDIT AND COLLECTIONS REPRESENTATIVE): Encouraged patient to follow low fat/low chol diet like the Mediterranean diet. Increase good fats in the diet. Increase exercise. Monitor labs as needed. Continue Crestor Assessment & Plan (08/23/2021 9:42 PM CREDIT AND COLLECTIONS REPRESENTATIVE): Encouraged patient to follow fat/low chol diet like the Mediterranean diet. Increase good fats in the diet. Increase exercise. Monitor labs as needed. Continue Crestor Assessment & Plan (04/08/2021 3:01 PM CDT): Encouraged patient to follow fat/low chol diet like the Mediterranean diet. Increase good fats in the diet. Increase exercise. Monitor labs as needed. Assessment & Plan (09/26/2020 8:17 PM CDT): Encouraged patient to follow fat/low chol diet like the Mediterranean diet. Increase good fats in the diet. Increase exercise. Monitor labs as needed. Continue Assessment & Plan (09/11/2019 9:19 AM CDT): Encouraged patient to continue low fat/low chol diet. Continue exercise. Increase good fats in the diet. Monitor labs as needed. Recheck labs Assessment & Plan (01/30/2019 1:02 PM CDT): Encouraged patient to continue low fat/low chol diet. Continue exercise. Increase good fats in the diet. Monitor labs as needed. Cigarette smoker 12/04/2018 Assessment & Plan (06/11/2024 12:15 PM CREDIT AND COLLECTIONS REPRESENTATIVE): Encouraged smoking cessation. Discussed 3 minutes. Reviewed options for assistance with cessation. Reviewed termite technician sequela associated with smoking. Pt declines assistance at this time but may contact the office at anytime for further help as they desire. Assessment & Plan (03/18/2024 8:05 PM CDT): Encouraged smoking cessation. Discussed 3 minutes. Reviewed options for assistance with cessation. Reviewed termite technician sequela associated with smoking. Pt declines assistance at this time but may contact the office at anytime for further help as they desire. Declines low-dose CT at this point Assessment & Plan (09/07/2023 10:30 PM CREDIT AND COLLECTIONS REPRESENTATIVE): Encouraged smoking cessation. Discussed 3 minutes. Reviewed options for assistance with cessation. Reviewed termite technician sequela associated with smoking. Pt declines assistance at this time but may contact the office at anytime for further help as they desire. Assessment & Plan (07/22/2022 1:47 PM CREDIT AND COLLECTIONS REPRESENTATIVE): Encouraged smoking cessation. Discussed 3 minutes. Reviewed options for assistance with cessation. Reviewed termite technician sequela associated with smoking. Pt declines assistance at this time but may contact the office at anytime for further help as they desire. Assessment & Plan (08/23/2021 9:42 PM CREDIT AND COLLECTIONS REPRESENTATIVE): Encouraged smoking cessation. Discussed 3 minutes. Reviewed options for assistance with cessation. Reviewed termite technician sequela associated with smoking. Pt declines assistance at this time but may contact the office at anytime for further help as they desire. Assessment & Plan (04/08/2021 2:56 PM CDT): Encouraged smoking cessation. Discussed 3 minutes. Reviewed options for assistance with cessation. Reviewed termite technician sequela associated with smoking. Pt declines assistance at this time but may contact the office at anytime for further help as they desire. Assessment & Plan (01/18/2021 11:39 PM CDT): Encouraged smoking cessation. Discussed 3 minutes. Reviewed options for assistance with cessation. Reviewed termite technician sequela associated with smoking. Pt declines assistance at this time but may contact the office at anytime for further help as they desire. Assessment & Plan (09/26/2020 8:30 PM CDT): Encouraged smoking cessation. Discussed 3 minutes. Reviewed options for assistance with cessation. Reviewed residential sequela associated with smoking. Pt declines assistance at this time but may contact the office at anytime for further help as they desire. Assessment & Plan (06/14/2020 5:55 PM CREDIT AND COLLECTIONS REPRESENTATIVE): Encouraged smoking cessation. Discussed 3 minutes. Reviewed options for assistance with cessation. Reviewed residential sequela associated with smoking. Pt declines assistance at this time but may contact the office at anytime for further help as they desire. Assessment & Plan (03/15/2020 11:10 AM CDT): Encouraged smoking cessation. Discussed 3 minutes. Reviewed options for assistance with cessation. Reviewed residential sequela associated with smoking. Pt declines assistance at this time but may contact the office at anytime for further help as they desire. Assessment & Plan (12/23/2019 1:20 PM CDT): We discussed the adverse effects of smoking on healing potential now is a good time to quit Assessment & Plan (09/11/2019 9:20 AM CDT): Encouraged smoking cessation. Discussed 3 minutes. Reviewed options for assistance with cessation. Reviewed residential sequela associated with smoking. Pt declines assistance at this time but may contact the office at anytime for further help as they desire. Assessment & Plan (06/17/2019 6:16 PM CREDIT AND COLLECTIONS REPRESENTATIVE): Encouraged smoking cessation. Discussed 3 minutes. Reviewed options for assistance with cessation. Reviewed residential sequela associated with smoking. Pt declines assistance at this time but may contact the office at anytime for further help as they desire. Assessment & Plan (01/30/2019 1:03 PM CDT): Encouraged smoking cessation. Discussed approx 3 minutes. Gastroesophageal reflux disease without esophagi tis 12/04/2018 Assessment & Plan (06/11/2024 12:15 PM CREDIT AND COLLECTIONS REPRESENTATIVE): Continue PPI Assessment & Plan (03/18/2024 8:05 PM CDT): Patient has been following closely with Dr. Truong RHODES. She transferred and saw Dr. Nath and had an EGD done. States at this point her symptoms are pretty stable so will just continue to monitor continuing the Bentyl as needed and continue PPI p.r.n. Assessment & Plan (05/21/2023 3:44 PM CREDIT AND COLLECTIONS REPRESENTATIVE): Continue PPI p.r.n.. Continue per GI Assessment & Plan (07/22/2022 1:47 PM CREDIT AND COLLECTIONS REPRESENTATIVE): Continue per Dr. Guerin. She is currentl on omeprazole sucralfate. Will await his recommendations Assessment & Plan (08/23/2021 9:42 PM CREDIT AND COLLECTIONS REPRESENTATIVE): Continue PPI. She is unsure if the Dexilant will continue to be covered by her insurance so she will contact us with the letter she has at home with her options. Assessment & Plan (04/08/2021 2:55 PM CDT): Increased reflux symptoms. She is currently on Dexilant. Encouraged to continue with the same regimen. Will refer her to GI Dr. Zamora at [place] she is due for colonoscopy and may benefit from upper GI. If she starts to notice hematemesis, dark tarry stools or increased pain she is to follow up immediately. Assessment & Plan (09/26/2020 8:14 PM CDT): Continue PPI Assessment & Plan (09/11/2019 9:18 AM CDT): Continue PPI Assessment & Plan (01/30/2019 12:54 PM CDT): Stable with Dexilant Chronic tension-type headache, not intractable 0 12/04/2018 Assessment & Plan (09/11/2019 9:17 AM CDT): This is a significant, separately identifiable problem that was evaluated and managed on the same day as the wellness exam Vertigo may be a prodrome to her migraines. Will have her try excedrin migraine at the onset of sxs. Will refill the meclizine to have available as she states it does work. Has appt with Neurologist for further evaluation of the vertigo/GUZMAN Vitamin D deficiency 12/04/2018 Assessment & Plan (06/11/2024 12:15 PM CREDIT AND COLLECTIONS REPRESENTATIVE): Supplement Assessment & Plan (03/18/2024 8:06 PM CDT): Supplement Assessment & Plan (09/07/2023 10:30 PM CREDIT AND COLLECTIONS REPRESENTATIVE): Supplement Assessment & Plan (05/21/2023 3:44 PM CREDIT AND COLLECTIONS REPRESENTATIVE): Supplement Assessment & Plan (07/22/2022 1:47 PM CREDIT AND COLLECTIONS REPRESENTATIVE): Supplement Assessment & Plan (09/26/2020 8:14 PM CDT): supplement Assessment & Plan (09/11/2019 9:18 AM CDT): supplement Assessment & Plan (01/30/2019 1:02 PM CDT): supplement COPD (chronic obstructive pulmonary disease) 09/2018 Assessment & Plan (06/11/2024 12:15 PM CREDIT AND COLLECTIONS REPRESENTATIVE): Encouraged complete smoking cessation. Continue Breo and albuterol as needed Assessment & Plan (03/18/2024 8:06 PM CDT): Encouraged complete smoking cessation. Continue albuterol nebs and Breo as needed. Assessment & Plan (09/07/2023 10:30 PM CREDIT AND COLLECTIONS REPRESENTATIVE): Patient with COPD. Continue with albuterol and Breo. Assessment & Plan (05/21/2023 3:44 PM CREDIT AND COLLECTIONS REPRESENTATIVE): Continue Symbicort and albuterol p.r.n. continue Flonase Assessment & Plan (07/22/2022 1:47 PM CREDIT AND COLLECTIONS REPRESENTATIVE): Stressed smoking cessation. Continue Symbicort albuterol inhaler nebulizer p.r.n. Assessment & Plan (07/27/2021 7:15 AM CREDIT AND COLLECTIONS REPRESENTATIVE): Continues Symbicort/prn albuterol Still requires Neb Albuterol at times. Assessment & Plan (10/22/2020 12:24 PM CDT): COPD versus COPD exacerbation versus asthma versus COVID. Patient is currently on Symbicort as well as albuterol HFA p.r.n.. She is to continue with this regimen. She would benefit from having a nebulizer machine available for use during the day she is still having breakthrough symptoms. She has the possibility of needing of smashing for life time. Patient states she understands how to use the machine and is willing to use it on a regular basis as instructed. New prescription sent to [facility]. Qqat-de-myoe completed today Assessment & Plan (09/26/2020 8:14 PM CDT): Continue Symbicort and Albuterol prn Assessment & Plan (03/15/2020 11:10 AM CDT): Continue current regimen. Stop smoking Assessment & Plan (09/11/2019 9:18 AM CDT): STOP smoking. Continue with current regimen inhalers Albuterol/Symbicort Assessment & Plan (01/30/2019 12:54 PM CDT): Continue with Symbicort SHERRY (obstructive sleep apnea) 12/02/2018 Assessment & Plan (06/11/2024 11:43 AM CREDIT AND COLLECTIONS REPRESENTATIVE): Patient has established with Dr. Manuel. She had her sleep study test that did confirm sleep apnea. Awaiting the titration study Assessment & Plan (03/18/2024 8:03 PM CDT): Patient was diagnosed with sleep apnea at [facility] with Dr. Joseph. She would not wear the mask so sent the machine back. Has been untreated for many years. Continues to snore and have daytime sleepiness. Strongly encouraged re- evaluation. Willing to see Dr. Manuel at [facility]. Referral placed Assessment & Plan (09/07/2023 10:30 PM CREDIT AND COLLECTIONS REPRESENTATIVE): Continue with CPAP Assessment & Plan (07/22/2022 1:36 PM CREDIT AND COLLECTIONS REPRESENTATIVE): Continue CPAP Assessment & Plan (04/08/2021 2:56 PM CDT): Continue to use CPAP as instructed. Patient states she has all of her needed supplies. Assessment & Plan (10/22/2020 12:20 PM CDT): Patient refuses treatment with CPAP as can't tolerate the mask. Assessment & Plan (09/11/2019 8:36 AM CDT): Refuses to use as can't sleep with it Assessment & Plan (01/30/2019 12:54 PM CDT): Continue CPAP. Has needed supplies Mental health problem 12/02/2018 Assessment & Plan (06/11/2024 11:43 AM CREDIT AND COLLECTIONS REPRESENTATIVE): Continue per psychiatrist. She continues to take out her medications and they are updated on her chart Assessment & Plan (03/18/2024 8:04 PM CDT): Continue following with her psychiatrist for management of her mental health concerns. Assessment & Plan (09/07/2023 10:30 PM CREDIT AND COLLECTIONS REPRESENTATIVE): Continue per Psychiatry. Current medications include Klonopin Ingrezza Lexapro Vraylar 6 mg Lamictal and lithium Assessment & Plan (05/21/2023 3:45 PM CREDIT AND COLLECTIONS REPRESENTATIVE): Continue per psychiatrist Assessment & Plan (07/22/2022 1:45 PM CREDIT AND COLLECTIONS REPRESENTATIVE): Continue per psychiatrist. Patient states she is on clonazepam, latuda, Hydroxyzine, Cymbalta and Lexapro Assessment & Plan (08/23/2021 9:42 PM CREDIT AND COLLECTIONS REPRESENTATIVE): Per psychiatrist Assessment & Plan (04/08/2021 2:58 PM CDT): Continue per Psychiatry Assessment & Plan (06/14/2020 5:56 PM CREDIT AND COLLECTIONS REPRESENTATIVE): Unsure of exact diagnosis. Medication/treatment plan is managed by psychiatrist. Assessment & Plan (03/15/2020 11:09 AM CDT): Continue per psychatrist. Assessment & Plan (09/11/2019 9:19 AM CDT): Continue per psychiatry Assessment & Plan (01/30/2019 1:04 PM CDT): Managed by psychiatrist Seasonal allergic rhinitis due to pollen 017 Assessment & Plan (04/08/2021 2:57 PM CDT): Continue with current regimen. She is on Zyrtec and Flonase. Resolved Problems Problem Noted Date Diagnosed Date Resolved Date PND (post-nasal drip) 05/18/20242023 Bilateral impacted cerumen 05/18/2024 1 08/12/2023 BMI 45.0-49.9, adult 03/06/2024 024 Assessment & Plan (03/18/2024 8:08 PM CDT): Discussed the patient's BMI. The BMI is above average. BMI management plan is completed. BMI Follow-up includes: nutrition counseling, exercise counseling and education provided. Medicare annual wellness visit, subsequent 09/07/2023 03/17/2024 Assessment & Plan (09/07/2023 10:31 PM CREDIT AND COLLECTIONS REPRESENTATIVE): Encouraged healthy lifestyle, good nutrition and exercise. Encouraged Calcium and Vitamin D and weight bearing exercise for bone health. Reviewed immunizations. Reviewed age appropirate screenings. Medicare Wellness Documentation is completed within the chart BMI 38.0-38.9,adult 05/21/2023 09/07/19 24 Assessment & Plan (05/21/2023 3:46 PM CREDIT AND COLLECTIONS REPRESENTATIVE): Discussed the patient's BMI. The BMI is above average. BMI management plan is completed. BMI Follow-up includes: nutrition counseling, exercise counseling and education provided. BMI 39.0-39.9,adult 07/22/2022 05/04/20 Assessment & Plan (07/22/2022 1:48 PM CREDIT AND COLLECTIONS REPRESENTATIVE): Discussed the patient's BMI. The BMI is above average. BMI management plan is completed. BMI Follow-up includes: nutrition counseling, exercise counseling and education provided. Need for vaccination 07/22/2022 024 Assessment & Plan (05/21/2023 3:46 PM CREDIT AND COLLECTIONS REPRESENTATIVE): Flu vaccine updated in the office Assessment & Plan (07/22/2022 1:48 PM CREDIT AND COLLECTIONS REPRESENTATIVE): Flu vaccine at the office today Encounter for screening mamm ogram for malignant neoplasm of breast 07/22/2022 09/07/2023 Assessment & Plan (07/22/2022 1:48 PM CREDIT AND COLLECTIONS REPRESENTATIVE): Mammogram order provided Bloody diarrhea 04/08/2021 09/07/2023 Assessment & Plan (04/08/2021 2:59 PM CDT): This is a significant, separately identifiable problem that was evaluated and managed on the same day as the wellness exam Patient has noted bloody diarrhea for the past 2 and half weeks. Her labs were stable including CBC. She states she has not noted any blood recently. Will send her for colonoscopy as she is past due for screening due to her family history. If she has increased dizziness syncopal episode black tarry stools or increased discomfort she is to call the office immediately for further intervention. Will refer to Dr. Moiz Naylor at [facility] Medicare annual wellness visit, subsequent 04/06/2021 09/07/2023 Assessment & Plan (07/22/2022 1:48 PM CREDIT AND COLLECTIONS REPRESENTATIVE): Encouraged healthy lifestyle, good nutrition and exercise. Encouraged Calcium and Vitamin D and weight bearing exercise for bone health. Reviewed immunizations. Reviewed age appropirate screenings. Medicare Wellness Documentation is completed within the chart Assessment & Plan (04/08/2021 2:54 PM CDT): Encouraged healthy lifestyle, good nutrition and exercise. Encouraged Calcium and Vitamin D and weight bearing exercise for bone health. Reviewed immunizations. Reviewed age appropirate screenings. Medicare Wellness Documentation is completed within the chart Need for immunization against influenza 04/06/2021 09/07/2023 Assessment & Plan (04/08/2021 2:52 PM CDT): Flu vaccine updated in office today Colon cancer screening 04/06/202109/06 Assessment & Plan (04/08/2021 2:52 PM CDT): Family history of rectal cancer. She was due to repeat colonoscopy in 2015. Prefers to see a provider at [facility]. She is also having burning in the midepigastric area and bloody stools Celexa referral to Dr. Moiz Naylor and await recommendations. Would probably benefit from upper GI in addition to the colonoscopy. Finger numbness 01/18/2021 04/08/2021 Assessment & Plan (01/18/2021 11:39 PM CDT): C cervical root impingement Neck pain 01/18/2021 04/08/2021 Assessment & Plan (01/18/2021 11:38 PM CDT): C cervical nerve root impingement Obesity (BMI 30-39.9) 01/14/20212022 Assessment & Plan (08/23/2021 9:43 PM CREDIT AND COLLECTIONS REPRESENTATIVE): Obesity is unchanged. Discussed the patient's BMI. The BMI is above average. BMI management plan is completed. BMI Follow-up includes: nutrition counseling, exercise counseling and education provided. Assessment & Plan (04/06/2021 3:35 PM CDT): Obesity is unchanged. Discussed the patient's BMI. The BMI is above average. BMI management plan is completed. BMI Follow-up includes: nutrition counseling, exercise counseling and education provided. Assessment & Plan (01/14/2021 1:15 PM CDT): Obesity is unchanged. Discussed the patient's BMI. The BMI is above average. BMI management plan is completed. BMI Follow-up includes: nutrition counseling, exercise counseling and education provided. BMI 36.0-36.9,adult 01/14/2021 07/22/19 23 Assessment & Plan (07/27/2021 7:21 AM CREDIT AND COLLECTIONS REPRESENTATIVE): Obesity is unchanged. Discussed the patient's BMI. The BMI is above average. BMI management plan is completed. BMI Follow-up includes: nutrition counseling, exercise counseling and education provided. Assessment & Plan (04/06/2021 3:35 PM CDT): Obesity is unchanged. Discussed the patient's BMI. The BMI is above average. BMI management plan is completed. BMI Follow-up includes: nutrition counseling, exercise counseling and education provided. Assessment & Plan (01/14/2021 1:15 PM CDT): Obesity is unchanged. Discussed the patient's BMI. The BMI is above average. BMI management plan is completed. BMI Follow-up includes: nutrition counseling, exercise counseling and education provided. Cough 10/22/2020 04/08/2021 Assessment & Plan (10/22/2020 12:22 PM CDT): Asthma vs COPD exacerbation vs COVID vs other etiology. Will send for COVID testing today. Patient to presume positive COVID until results are available and self isolate for 14 days from the onset of sxs. Check COVID test thru [facility] collection site in [place]. Treat sxs with Tylenol, Cough/cold medication otc and add VitD 5,000IU daily and Zinc 50mg daily. Monitor sxs and call or go to the ER if has any of the following: --trouble breathing --persistent pain or pressure in the chest --new confusion --inability to wake or stay awake -- bluish lips or face If patient has been in close contact with anyone, they should be notified and instructed to quarantine per CDC guidelines for 14 days after last exposure to the positive COVID patient and monitor closely for symptoms of COVID. If they appear they should be tested. Close contact includes: --You were within 6 feet of someone who has COVID-19 for a total of 15 minutes or more --You provided care at home to someone who is sick with COVID-19 --You had direct physical contact with the person (hugged or kissed them) --You shared eating or drinking utensils --They sneezed, coughed, or somehow got respiratory droplets on you Additional Steps to avoid exposure/spread include: ?? Avoid crowded places where close contact with others may occur, such as shopping centers, movie theaters, dormitories, or stadiums. ?? Avoid transit where close contact with others may occur, such as planes, trains, and buses. ?? Maintain a distance of approximately 6 feet from other people whenever possible (spacing out if you are in a line, leaving 2 seats in between others at a waiting room when possible). ?? Wash your hands with soap and water often. If needed, use a hand an/sqq 89(v)15 sonar system journeyman that contains at least 60% alcohol. ?? Clean and disinfect frequently touched surfaces such as tables, doorknobs, countertops, etc daily. ?? Avoid touching your eyes, nose, and mouth when possible. BMI 37.0-37.9, adult 09/26/2020 021 Assessment & Plan (09/26/2020 12:19 PM CDT): Obesity is unchanged. Discussed the patient's BMI. The BMI is above average. BMI management plan is completed. BMI Follow-up includes: nutrition counseling, exercise counseling and education provided. Obesity (BMI 30-39.9) 09/26/20202020 Assessment & Plan (09/26/2020 12:18 PM CDT): Obesity is unchanged. Discussed the patient's BMI. The BMI is above average. BMI management plan is completed. BMI Follow-up includes: nutrition counseling, exercise counseling and education provided. Fatigue 09/26/2020 04/08/2021 Right ear pain 07/22/2020 04/08/2021 Assessment & Plan (07/22/2020 11:47 AM CREDIT AND COLLECTIONS REPRESENTATIVE): Declines covid 19 testing at this time. Will start on ceftin 500mg bid x 7 days. She was advised to report to office if having otorrhea or worsening of symptoms. Need for immunization against influenza 06/14/2020 02/17/2021 Assessment & Plan (06/14/2020 5:57 PM CREDIT AND COLLECTIONS REPRESENTATIVE): Updated in office today BMI 37.0-37.9, adult 06/10/2020 024 Assessment & Plan (09/07/2023 10:31 PM CREDIT AND COLLECTIONS REPRESENTATIVE): Discussed the patient's BMI. The BMI is above average. BMI management plan is completed. BMI Follow-up includes: nutrition counseling, exercise counseling and education provided. Assessment & Plan (06/10/2020 1:35 PM CREDIT AND COLLECTIONS REPRESENTATIVE): Obesity is unchanged. Discussed the patient's BMI. The BMI is above average. BMI management plan is completed. BMI Follow-up includes: nutrition counseling, exercise counseling and education provided.Obesity is unchanged. Discussed the patient's BMI. Positive depression screening 06/10/2020 09/07/2023 Assessment & Plan (07/22/2020 11:47 AM CREDIT AND COLLECTIONS REPRESENTATIVE): Continue medication same Assessment & Plan (06/14/2020 5:56 PM CREDIT AND COLLECTIONS REPRESENTATIVE): Pt denies any suicidal or homicidal thoughts. Continue meds per Psychiatrist-- BMI 35.0-35.9,adult 03/15/2020 06/10/20 20 Acute lateral meniscal tear, right, subsequent encounter 01/14/2020 01/30/2020 Assessment & Plan (01/14/2020 8:27 PM CDT): Three options for meniscal treatment. Nothing, see if it improves over time. Treat conservatively as an osteoarthritis of the knee or diagnostic and operative arthroscopy with repair or partial excision. Acute medial meniscal tear, right, subsequent encounter 01/14/2020 01/30/2020 Assessment & Plan (01/14/2020 8:28 PM CDT): Three options for meniscal treatment. Nothing, see if it improves over time. Treat conservatively as an osteoarthritis of the knee or diagnostic and operative arthroscopy with repair or partial excision. After going over the risks, benefits and alternatives patient wants to proceed with diagnostic operative arthroscopy partial medial and partial lateral meniscectomy with possible chondroplasty. All questions are answered and informed consent is obtained. BMI 34.0-34.9,adult 09/11/2019 03/15/20 20 Assessment & Plan (09/11/2019 8:01 AM CDT): Obesity is unchanged. Discussed the patient's BMI. The BMI is above average. BMI management plan is completed. BMI Follow-up includes: nutrition counseling, exercise counseling and education provided. Medicare annual wellness visit, subsequent 09/11/2019 03/15/2020 Assessment & Plan (09/11/2019 9:20 AM CDT): Encouraged healthy lifestyle, good nutrition and exercise. Encouraged Calcium and Vitamin D and weight bearing exercise for bone health. Reviewed immunizations Reviewed age appropirate screenings. Documentation is on the chart Other fatigue 09/11/2019 03/17/2024 Assessment & Plan (09/07/2023 10:30 PM CREDIT AND COLLECTIONS REPRESENTATIVE): Probably multifactorial. Check labs and followup to re-evaluate Assessment & Plan (09/11/2019 9:21 AM CDT): Probably multifactorial. Check labs and followup to re-evaluate Hyperglycemia 09/11/2019 03/06/2024 Assessment & Plan (09/07/2023 10:30 PM CREDIT AND COLLECTIONS REPRESENTATIVE): Pre-diabetes/hyperglycemia is a precursor to Dm. Stressed importance of working on diet (decrease your simple sugars and one carbohydrate with each meal) and increase you exercise to achieve weight loss and this will help prevent you from progressing to diabetes. Assessment & Plan (09/26/2020 8:29 PM CDT): Pre-diabetes/hyperglycemia is a precursor to Dm. Stressed importance of working on diet (decrease your simple sugars and one carbohydrate with each meal) and increase you exercise to achieve weight loss and this will help prevent you from progressing to diabetes. Assessment & Plan (09/11/2019 9:21 AM CDT): Check labs BMI 32.0-32.9,adult 02/28/2019 09/11/19 Assessment & Plan (02/28/2019 2:56 PM CDT): BMI Follow-up includes: Discussed diet and exercising counseling. BMI 33.0-33.9,adult 01/30/2019 03/15/20 Assessment & Plan (01/14/2020 8:29 PM CDT): We discussed the adverse effects of extra weight on osteoarthritis. The only thing proven to slow the progression of osteoarthritis as weight loss. Every 1 lb lost, relieves 4-6 lb of stress across the knee. Continue weight loss through diet and exercise. Consider low carbohydrate diet. Assessment & Plan (12/23/2019 1:20 PM CDT): We discussed the adverse effects of extra weight on osteoarthritis. The only thing proven to slow the progression of osteoarthritis as weight loss. Every 1 lb lost, relieves 4-6 lb of stress across the knee. Continue weight loss through diet and exercise. Consider low carbohydrate diet. Assessment & Plan (01/30/2019 1:03 PM CDT): Obesity is improving. Discussed the patient's BMI. The BMI is above average. BMI management plan is completed. BMI Follow-up includes: nutrition counseling, exercise counseling and education provided. BMI Follow-up includes: Discussed diet and exercising counseling. Obesity (BMI 30-39.9) 01/30/20192020 Assessment & Plan (09/11/2019 8:01 AM CDT): Obesity is unchanged. Discussed the patient's BMI. The BMI is above average. BMI management plan is completed. BMI Follow-up includes: nutrition counseling, exercise counseling and education provided. Assessment & Plan (02/28/2019 2:56 PM CDT): Patient needs appointment before future refills. Assessment & Plan (01/30/2019 12:54 PM CDT): Improving. BMI Follow-up includes: Discussed diet and exercising counseling. Breast cancer screening 01/30/201909/01 Assessment & Plan (09/11/2019 9:20 AM CDT): Mammogram order provided Assessment & Plan (01/30/2019 1:03 PM CDT): Mammogram order provided Seasonal allergies 12/04/2018 Assessment & Plan (09/26/2020 8:30 PM CDT): Restart antihistamine (Claritin OR Zyrtec), Mucinex 12hour and Steroid nasal spray (Flonase). Push fluids. Rest. Supportive care. If sxs worsen or don\'t improve, pt is to followup in the office. Assessment & Plan (09/11/2019 9:19 AM CDT): Continue current regimen Assessment & Plan (03/04/2019 11:01 PM CDT): Start antihistamine, Mucinex and Steroid nasal spray. Push fluids. Rest. Supportive care. If sxs worsen or don\'t improve, pt is to followup in the office. Menorrhagia with regular cycle 12/04/2018 03/17/2024 Abnormal mammogram of left breast 08/11/2017 07/22/2022 Left knee pain 10/27/2015 04/08/2021 Immunizations Name Administration Dates Next Due Influenza, Quadrivalent, Spl it, Preservative Free, Intramuscular 05/04/2023,07/22/2022,04/06/2021,06/10 Influenza, Trivalent, Preser vative Free, Intramuscular 06/11/2024 Influenza, Unspecified 07/02/2019 Pfizer SARS-CoV-2 Monovalent Vaccination (12+ Yrs) PURPLE 11/25/2020,10/30/2020 Tdap 06/30/2017 Social History Tobacco Use Types Packs/Day Years Used Date Smoking Tobacco: Some Days Cigarettes 0.5 20 Smokeless Tobacco: Never Alcohol Use Standard Drinks/Week Comments Yes 0 (1 standard drink = 0.6 oz pur e alcohol) AUDIT-C Answer Date Recorded Q1: How often do you have a drink containing alc ohol? 2-3 times a week 08/01/2024 Q2: How many drinks containi ng alcohol do you have on a typical day when you are drinking? 3 or 4 08/01/2024 Q3: How often do you have si x or more drinks on one occasion? Less than monthly 08/01/2024 PHQ-2 Answer Date Recorded PHQ-2 Total Score 6 08/01/2024 Comments No Sex and Gender Information Value Date Recorded Sex Assigned at Not on file Legal Sex Female 4:54 AM CREDIT AND COLLECTIONS REPRESENTATIVE Gender Identity Not on file Sexual Orientation Not on file Occupation Industry Job Start Date Job End Date Disabled Not on file Not on file Not on file Last Filed Vital Signs Vital Sign Reading Time Taken Comments Blood Pressure 148/90 08/01/2024 11:20 AM CREDIT AND COLLECTIONS REPRESENTATIVE Pulse 81 06/11/2024 9:49 AM CREDIT AND COLLECTIONS REPRESENTATIVE Temperature 36.9 ??C (98.5 ??F) 06/11/2024 9:49 AM CS T Respiratory Rate 18 05/18/2024 9:37 AM CREDIT AND COLLECTIONS REPRESENTATIVE Oxygen Saturation 96% 06/11/2024 9:49 AM CREDIT AND COLLECTIONS REPRESENTATIVE Inhaled Oxygen Concentration - - Weight 106.6 kg (235 lb) 08/01/2024 11:20 AM CREDIT AND COLLECTIONS REPRESENTATIVE Height 154.9 cm (5' 1 ) 06/11/2024 9:49 AM CREDIT AND COLLECTIONS REPRESENTATIVE Body Mass Index 44.4 06/11/2024 9:49 AM CREDIT AND COLLECTIONS REPRESENTATIVE Plan of Treatment Not on file Procedures Procedure Name Priority Date/Time Associated Diagnosis Comments VITAMIN D 25 HYDROXY Routine 06/01/2024 7:12 AM CREDIT AND COLLECTIONS REPRESENTATIVE Vitamin D deficiency ALBUMIN CREATININE RATIO, URINE Routine 06/01/2024 7:12 AM CREDIT AND COLLECTIONS REPRESENTATIVE Type 2 diabetes mellitus with hyperlipidemia (HCC) COMPREHENSIVE METABOLIC PANEL Routine 06/01/2024 7:11 AM CREDIT AND COLLECTIONS REPRESENTATIVE Type 2 diabetes mellitus with hyperlipidemia (HCC) LIPID PANEL Routine 06/01/2024 7:11 AM CREDIT AND COLLECTIONS REPRESENTATIVE Hyperlipidemia, unspecified hyperlipidemia type HEMOGLOBIN A1C Routine 06/01/2024 7:11 AM CREDIT AND COLLECTIONS REPRESENTATIVE Type 2 diabetes mellitus with hyperlipidemia (HCC) TSH Routine 06/01/2024 7:11 AM CREDIT AND COLLECTIONS REPRESENTATIVE Elevated TSH Hyperthyroidism SLEEP LAB/STUDY - RESULT 05/17/2024 12:37 PM CREDIT AND COLLECTIONS REPRESENTATIVE SCREENING MAMMOGRAM BILATERAL W ALBERTO Schedule Routine, Read Routine (OP Routine) 07/19/2023 Encounter for screening mammogram for malignant neoplasm of breast HM COLONOSCOPY Routine 05/26/2021 THINPREP [employer] PAP (IMAGE GUIDED) LIQUID-BASED PREP Routine 08/03/2017 12:16 PM CREDIT AND COLLECTIONS REPRESENTATIVE from Last 3 Months or Most Recently Relevant to Health Maintenance Results * Albumin Creatinine Ratio, Urine (06/01/2024 7:12 AM CREDIT AND COLLECTIONS REPRESENTATIVE) Creatinine, ur 42 20 - 275 mg/dL [facility] Microalbumin, ur <0.2 See Note: mg/dL [facility] Comment: Reference Range: Reference Range Not established Microalbumin/creat ratio NOTE <30 mg/g creat [facility] Comment: NOTE: The urine albumin value is less than 0.2 mg/dL therefore we are unable to calculate excretion and/or creatinine ratio. The ADA defines abnormalities in albumin excretion as follows: Albuminuria Category ?Result (mg/g creatinine) Normal to Mildly increased ?? <30 Moderately increased ? 30-299 Severely increased ? > OR = 300 The ADA recommends that at least two of three specimens collected within a 3-6 month period be abnormal before considering a patient to be within a diagnostic category. Urine 06/01/2024 7:12 AM CREDIT AND COLLECTIONS REPRESENTATIVE 06/01/2024 7:13 AM CREDIT AND COLLECTIONS REPRESENTATIVE us Inez VELASCO LAB URINE ORDERABLES Final Result [facility] [address] [facility] [place] [address] * Vitamin D 25 hydroxy (06/01/2024 7:12 AM CREDIT AND COLLECTIONS REPRESENTATIVE) Pathologist [facility] Vitamin D 25-OH 37 30 - 100 ng/mL [facility] Comment: Vitamin D Status ? 25-OH Vitamin D: Deficiency: ?<20 ng/mL Insufficiency: ? 20 - 29 ng/mL Optimal: ? > or = 30 ng/mL For 25-OH Vitamin D testing on patients on D2-supplementation and patients for whom quantitation of D2 and D3 fractions is required, the [facility](TM) 25-OH VIT D, (D2,D3), LC/MS/MS is recommended: order code 17055 (patients >2yrs). See Note 1 Note 1 For additional information, please refer to http://education.InsideMaps/faq/HYD451 (This link is being provided for informational/ educational purposes only.) Blood 06/01/2024 7:12 AM CREDIT AND COLLECTIONS REPRESENTATIVE 06/01/2024 7:13 AM CREDIT AND COLLECTIONS REPRESENTATIVE us Inez VELASCO LAB BLOOD ORDERABLES Final Result Performing Organization Address City/State/[facility] Co de Phone Number [facility] [address] [place] [address] * TSH (06/01/2024 7:11 AM CREDIT AND COLLECTIONS REPRESENTATIVE) [facility] TSH 2.15 mIU/L [facility] Comment: ?Reference Range ?> or = 20 Years ??0.40-4.50 ? Ranges ?First trimester ?0.26-2.66 ?Second trimester ?? 0.55-2.73 ?Third trimester ?0.43-2.91 Blood 06/01/2024 7:11 AM CREDIT AND COLLECTIONS REPRESENTATIVE 06/01/2024 7:11 AM CREDIT AND COLLECTIONS REPRESENTATIVE Narrative [facility] - 06/01/2024 9:56 PM CREDIT AND COLLECTIONS REPRESENTATIVE FASTING:YES FASTING: YES Inez VELASCO LAB BLOOD ORDERABLES Final Result Performing Organization Address [facility] de Phone Number [facility] [address] [place] [address] * (ABNORMAL) Hemoglobin A1c (06/01/2024 7:11 AM CREDIT AND COLLECTIONS REPRESENTATIVE) Hgb A1C 5.9(H) <5.7 % of total Hgb [facility] Jackson Comment: For someone without known diabetes, a hemoglobin A1c value between 5.7% and 6.4% is consistent with prediabetes and should be confirmed with a follow-up test. For someone with known diabetes, a value <7% indicates that their diabetes is well controlled. A1c targets should be individualized based on duration of diabetes, age, comorbid conditions, and other considerations. This assay result is consistent with an increased risk of diabetes. Currently, no consensus exists regarding use of hemoglobin A1c for diagnosis of diabetes for children. Blood 06/01/2024 7:11 AM CREDIT AND COLLECTIONS REPRESENTATIVE 06/01/2024 7:11 AM CREDIT AND COLLECTIONS REPRESENTATIVE Narrative [facility] - 06/01/2024 9:56 PM CREDIT AND COLLECTIONS REPRESENTATIVE FASTING:YES FASTING: YES Inez VELASCO LAB BLOOD ORDERABLES Final Result Performing Organization Address [facility] de Phone Number [facility] [address] [place] [address] * (ABNORMAL) Lipid panel (06/01/2024 7:11 AM CREDIT AND COLLECTIONS REPRESENTATIVE) Cholesterol 142 <200 mg/dL [facility] Manuel HDL 47(L) > OR = 50 mg/dL [facility] Triglycerides 124 <150 mg/dL [facility] LDL 74 mg/dL (calc) Est[facility] Jackson Comment: Reference range: <100 Desirable range <100 mg/dL for primary prevention; ?? <70 mg/dL for patients with CHD or diabetic patients with > or = 2 CHD risk factors. LDL-C is now calculated using the Crystal calculation, which is a validated novel method providing better accuracy than the Friedewald equation in the estimation of LDL-C. Arley SS et al. FRANKY. 2013;310(19): 4322-6290 (http://education.InsideMaps/faq/UAQ890) Chol/HDL ratio 3.0 <5.0 (calc) Estella Jackson Non-HDL, (LDL+VLDL) 95 <130 mg/dL (calc) Estella Jackson Comment: For patients with diabetes plus 1 major ASCVD risk factor, treating to a non-HDL-C goal of <100 mg/dL (LDL-C of <70 mg/dL) is considered a therapeutic option. Blood 06/01/2024 7:11 AM CREDIT AND COLLECTIONS REPRESENTATIVE 06/01/2024 7:11 AM CREDIT AND COLLECTIONS REPRESENTATIVE Narrative [facility] - 06/01/2024 9:56 PM CREDIT AND COLLECTIONS REPRESENTATIVE FASTING:YES FASTING: YES Inez VELASCO LAB BLOOD ORDERABLES Final Result ESTELLA [facility] [address] [place] [address] * Comprehensive metabolic panel (06/01/2024 7:11 AM CREDIT AND COLLECTIONS REPRESENTATIVE) [facility] Glucose 98 65 - 99 mg/dL Est[facility] Jackson Comment: ? Fasting reference interval BUN 11 7 - 25 mg/dL [facility] Creatinine 0.75 0.50 - 1.03 mg/dL Est[facility] Jackson eGFR 95 > OR = 60 mL/min/1.7 3m2 [facility] BUN/creat ratio SEE NOTE: (calc) Estella Jackson Comment: ?? Not Reported: BUN and Creatinine are within ?? reference range. ? Sodium 136 135 - 146 mmol/L Estella [facility] Potassium, pl 4.3 3.5 - 5.3 mmol/L Estella [facility] Chloride 102 98 - 110 mmol/L Estella [facility] CO2 26 20 - 32 mmol/L Estella [facility] Calcium 9.5 8.6 - 10.4 mg/dL Estella [facility] Protein, sr 6.8 6.1 - 8.1 g/dL Estella [facility] Albumin 4.6 3.6 - 5.1 g/dL Estella [facility] GLOBULIN 2.2 1.9 - 3.7 g/dL (calc) [facility] Alb/glob ratio 2.1 1.0 - 2.5 (calc) Estella [facility] Bilirubin, total 0.6 0.2 - 1.2 mg/dL [facility] Alk phos 69 37 - 153 U/L [facility] AST 24 10 - 35 U/L [facility] ALT (SGPT) 21 6 - 29 U/L Estella [facility] Blood 06/01/2024 7:11 AM CREDIT AND COLLECTIONS REPRESENTATIVE 06/01/2024 7:11 AM CREDIT AND COLLECTIONS REPRESENTATIVE Narrative [facility] - 06/01/2024 9:56 PM CREDIT AND COLLECTIONS REPRESENTATIVE FASTING:YES FASTING: YES Inez VELASCO LAB BLOOD ORDERABLES Final Result [facility] [address] [place] [address] * SLEEP LAB/STUDY - RESULT (05/17/2024 12:37 PM CREDIT AND COLLECTIONS REPRESENTATIVE) us Provider Scanning Final Result * Screening Mammogram Bilateral W Alberto (07/19/2023) Anatomical Region Laterality Modality Breast Bilateral Mammography Inez VELASCO IMG MAMMO PROCEDURES Edite d Result - Final * (ABNORMAL) HM COLONOSCOPY (05/26/2021) Historical Provider HEALTH MAINTENANCE Edited Result - Final * ThinPrep Gynecologic Pap Test (Image-guided), Liquid-based Preparation (08/03/2017 12:16 PM CREDIT AND COLLECTIONS REPRESENTATIVE) CLINICAL INFORMATION [facility] HISTORICAL RESULTS Comment:Information not prov ided LMP: 07/19 [facility] PREV. PAP: [facility] HISTORICAL RESULTS Comment:MANY YEARS AGO PREV. BX: [facility] HISTORICAL RESULTS Comment:INFORMATION NOT PROV IDED SOURCE: [facility] RES[facility] Comment:Cervix, Endocervix STATEMENT OF ADEQUACY: [facility] HISTORICAL RESULTS Comment: Satisfactory for evaluation. Endocervical/transformation zone component present. INTERPRETATION/RESU LT: [facility]ISTORICAL RESULTS Comment:Negative for intraep ithelial lesion or malignancy. COMMENT: [facility] HISTORICAL RESULTS Comment: This Pap test has been evaluated with computer assisted technology. QUALITY ASSURANCE MONITOR: [facility] HISTORICAL RESULTS Comment: YQ, CT(ASCP) CT screening location: [place] [address] [place] [address] 08/03/2017 12:1 6 PM CREDIT AND COLLECTIONS REPRESENTATIVE 08/09/2017 8:55 PM CREDIT AND COLLECTIONS REPRESENTATIVE Narrative [facility] HISTORICAL RESULTS - 08/09/2017 8:41 PM CREDIT AND COLLECTIONS REPRESENTATIVE 0 PERFORMING LAB: [facility] [address] [place] [address] Mahi Mcmahon MD Historical Provider LAB PATHOLOGY ORDERABLES Final Result [facility] HISTORICAL RESULTS from Last 3 Months or Most Recently Relevant to Health Maintenance Insurance ID[employer] MEDICARE SOLUTIONS [facility] MEDICARE [employer] Advance Directives For more information, please contact: [phone] * Full Code (Latest Code Status on File) Date Activated Date Inactivated Comments 05/29/2022 12:59 PM 05/30/2022 2:26 PM * Full Code Date Activated Date Inactivated Comments 05/28/2022 7:20 PM 05/29/2022 12:59 PM Care Teams Nurse Office Relationship Specialty Start Date End Date Inez New PA [address] [place] [address] PCP - General 09/14/17 Candido Guerin MD [address] [place] [address] Consulting Physician Gastroenterology 05/04/23
--- OUTSIDE RECORDS SUMMARY | 2024-08-08 08:27 | XMS_ITS | Encounter Summary ---
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 Historical Provider Final Res ult * PROCEDURE - RESULT (10/31/2017 12:00 AM CDT) Narrative 10/31/2017 12:00 AM CDT Ordered by an unspecified provider. us Historical Provider Final Res ult documented in this encounter Visit Diagnoses Not on filedocumented in this encounter Additional Health Concerns Infection Onset Date Last Indicated Resolved Time COVID: Suspected 01/10/2020 01/10/2020 01/24/2020 3:08 AM CDT COVID: Suspected 10/22/2020 10/22/2020 11/05/2020 3:05 AM CDT documented as of this encounter Care Teams Rn Integrity Relationship Specialty Start Date End Date Inez New PA [address] [place] [address] PCP - General 09/14/17 Candido Guerin MD [address] [place] [address] Consulting Physician Gastroenterology 05/04/23 documented as of this encounter
--- OUTSIDE RECORDS SUMMARY | 2024-08-08 08:27 | XMS_ITS | Encounter Summary ---
Author Organization [facility] Facility Care Team Providers Care Machined Parts Quality Inspector Name Role Phone Inez New Primary Care Provider [phone] Candido Guerin MD Unavailable [phone] Encounter Details Date Type Department Care Team (Latest Contact Info) Description 10/01/2016 Orders Only [facility] CLINCONV ProviderVishal MD [address] [place] [address] Social History Tobacco Use Types Packs/Day Years Used Date Smoking Tobacco: Never Assessed Comments Unknown Sex and Gender Information Value Date Recorded Sex Assigned at Not on file 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 Historical Provider CV CARDIAC SERVICES PROCE DURES Final Result * CARDIOLOGY REPORT (01/05/2017 12:00 AM CDT) Anatomical Region Laterality Modality Other Narrative 01/05/2017 12:00 AM CDT Ordered by an unspecified provider. us Historical Provider CV CARDIAC SERVICES PROCE ION Final Result documented in this encounter Visit Diagnoses Not on filedocumented in this encounter Additional Health Concerns Infection Onset Date Last Indicated Resolved Time COVID: Suspected 01/10/2020 01/10/2020 01/24/2020 3:08 AM CDT COVID: Suspected 10/22/2020 10/22/2020 11/05/2020 3:05 AM CDT documented as of this encounter Care Teams Machined Parts Quality Inspector Relationship Specialty Start Date End Date Inez New PA [address] [place] [address] PCP - General 09/14/17 Candido Guerin MD [address] [place] [address] Consulting Physician Gastroenterology 05/04/23 documented as of this encounter
--- OUTSIDE RECORDS SUMMARY | 2024-08-08 08:27 | XMS_ITS | Clinical Summary ---
Author Organization [facility] Address [address] [place] [address] Care Team Providers Care Lawn Maintenance Worker Name Role Phone Inez New Primary Care Provider Allergies No known active allergies Medications rosuvastatin 10 MG tablet Take 10 mg by mouth daily. 2 9 Active buPROPion XL 300 MG 24 hr tablet Take 300 mg by mouth every morning before breakfast. 0 9 Active Eszopiclone 3 MG Tab Take 3 mg by mouth nightly at bedtime. 1 9 Active DEXILANT 60 MG capsule Take 60 mg by mouth daily. 1 8 Active clonazePAM 0.5 MG tablet Take 0.5 mg by mouth 2 (two) times daily. 0 9 Active lamotrigine 150 MG tablet Take 150 mg by mouth 2 (two) times daily. 0 9 Active VENTOLIN HFA 108 (90 Base) MCG/ACT inhaler Inhale 2 puffs into the lungs every 4 (four) hours as needed for Shortness of breath. 0 8 Active SYMBICORT 160-4.5 MCG/ACT inhaler Inhale 2 puffs into the lungs 2 (two) times daily. 9 Active fluticasone propionate 50 MCG/ACT nasal spray 1 spray by Each Nostril route daily. 3 8 Active omeprazole 10 MG capsule Take 10 mg by mouth nightly at bedtime. Active diphenhydrAMINE 25 MG tablet Take 25 mg by mouth nightly as needed for Sleep. Active Asenapine (SECUADO) 7.6 MG/24HR PATCH [address] 7.6 mg onto the skin. Active Biotin 10 MG Tab 10 mg daily. Active busPIRone 10 MG tablet Take 10 mg by mouth 2 (two) times daily. 1 Active cetirizine 10 MG tablet Take 10 mg by mouth daily. 1 Active vitamin D3, cholecalciferol , (CHOLECALCIFERO L) 1000 UNIT Tab tablet 1,000 Units daily. Active dicyclomine 10 MG capsule 1 Active escitalopram 20 MG tablet 1 Active gabapentin 100 MG capsule Take 100 mg by mouth 3 (three) times daily. 1 Active hydrOXYzine 50 MG tablet 1 Active LATUDA 80 MG tablet 1 Active Magnesium 300 MG Cap 300 mg daily. Active meclizine 12.5 MG tablet TAKE 1 TABLET BY MOUTH 3 TIMES A DAY NEEDED FOR DIZZINESS 1 Active Potassium Gluconate 2.5 MEQ Tab 75 mg daily. Active sucralfate 1 G tablet 1 Active zolpidem 5 MG tablet 1 Active Family History Medical History Relation Comments Colon Cancer Mother Relation Status Comments Mother Social History Tobacco Use Types Packs/Day Years Used Date Smoking Tobacco: Light Smoker Smokeless Tobacco: Never Alcohol Use Standard Drinks/Week Comments Yes 0 (1 standard drink = 0.6 oz pur e alcohol) occassional Comments Unknown Sex and Gender Information Value Date Recorded Sex Assigned at Not on file Legal Sex Female 5:59 PM CDT Gender Identity Not on file Sexual Orientation Not on file Last Filed Vital Signs Vital Sign Reading Time Taken Comments Blood Pressure 137/86 05/26/2021 6:55 AM TECHNICAL TRAINING SPECIALIST Pulse 69 05/26/2021 6:55 AM TECHNICAL TRAINING SPECIALIST Temperature 36.1 ??C (96.9 ??F) 05/26/2021 6:32 AM CS T Respiratory Rate 14 05/26/2021 6:55 AM TECHNICAL TRAINING SPECIALIST Oxygen Saturation 96% 05/26/2021 6:55 AM TECHNICAL TRAINING SPECIALIST Inhaled Oxygen Concentration - - Weight 101.6 kg (224 lb) 05/21/2021 4:14 PM TECHNICAL TRAINING SPECIALIST Height 170.2 cm (5' 7 ) 05/21/2021 4:14 PM TECHNICAL TRAINING SPECIALIST Body Mass Index 35.08 05/21/2021 4:14 PM TECHNICAL TRAINING SPECIALIST Plan of Treatment Health Maintenance Due Date Last Done Comments Cervical Cancer Screening Pa p Smear (Age 30 to 64) Every 3 Years 1971 Annual Physical 1974 Pneumococcal Vaccine: Pediatrics (0 to 5 Years) and At-Risk Patients (6 to 64 Years) (1 of 2 - PCV) 1977 Hepatitis C 1989 Hepatitis B Vaccines (1 of 3 - 19+ 3-dose series) 1990 Cervical Cancer Screening Pa p with HPV Testing (Age 30 to 64) Every 5 Years 2001 Cervical Cancer Screening wi th HPV 2001 Mammogram Screening 2011 Zoster Vaccines (1 of 2) 2021 COVID-19 Vaccine (3 - 2023-2 5 season) 2024 11/25/2020, 10/30/2020 Influenza Adult (#1) 2024 04/06/2021, 06/10/2020, 07/02/2019 DTaP, Tdap and Td Vaccines ( 2 - Td or Tdap) 06/30/2027 06/30/2017 Colorectal Cancer Screening Colonoscopy (10 Years) 05/26/2031 05/26/2021, 05/26/2021 Meningococcal B Vaccine Aged Out No l onger eligible based on patient's age to complete this topic Meningococcal Vaccine Aged Out No juliet omar eligible based on patient's age to complete this topic RSV Immunizations Under 20 Months Aged Out No longer eligible b ased on patient's age to complete this topic Procedures Procedure Name Priority Date/Time Associated Diagnosis Comments COLONOSCOPY Routine 05/26/2021 5:23 AM TECHNICAL TRAINING SPECIALIST from Last 3 Months or Most Recently Relevant to Health Maintenance Insurance MEDICARE MEDICAID Care Teams Lawn Maintenance Worker Relationship Specialty Start Date End Date Inez New PA [address] [place] [address] PCP - General PHYSICIAN INDUSTRIAL HYGENIST 05/26/21
--- OUTSIDE RECORDS SUMMARY | 2024-08-08 08:27 | XMS_ITS | Encounter Summary ---
Author Organization 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 Historical Provider Final Res ult documented in this encounter Visit Diagnoses Not on filedocumented in this encounter Additional Health Concerns Infection Onset Date Last Indicated Resolved Time COVID: Suspected 01/10/2020 01/10/2020 01/24/2020 3:08 AM CDT COVID: Suspected 10/22/2020 10/22/2020 11/05/2020 3:05 AM CDT documented as of this encounter Care Teams Animal Nurse Relationship Specialty Start Date End Date Inez New PA [address] [place] [address] PCP - General 09/14/17 Candido Guerin MD [address] [place] [address] Consulting Physician Gastroenterology 05/04/23 documented as of this encounter
--- OUTSIDE RECORDS SUMMARY | 2024-08-08 08:28 | XMS_ITS | Encounter Summary ---
Author Organization [facility] Healthcare Address [address] [place] [address] Care Team Providers Care Construction And Maintenance Inspector Name Role Phone Inez New Primary Care Provider [phone] Candido Guerin MD Unavailable [phone] Encounter Details Date Type Department Care Team (Late Contact Info) Description 11/29/2023 Orders Only [facility] [place] [facility] Information Management [address] [place] [id number] Scanning, Provider Social History Tobacco Use Types Packs/Day Years Used Date Smoking Tobacco: Some Days Cigarettes 0.3 20 Smokeless Tobacco: Never Alcohol Use Standard Drinks/Week Comments Yes 0 (1 standard drink = 0.6 oz pur e alcohol) AUDIT-C Answer Date Recorded Q1: How often do you have a drink containing alc ohol? 2-4 times a month 09/07/2023 Q2: How many drinks containi ng alcohol do you have on a typical day when you are drinking? 5 or 6 09/07/2023 Q3: How often do you have si x or more drinks on one occasion? Monthly 09/07/2023 PHQ-2 Answer Date Recorded PHQ-2 Total Score 24 09/07/2023 Comments No Sex and Gender Information Value Date Recorded Sex Assigned at Not on file Legal Sex Female 4:54 AM WEB FE[employer] Gender Identity Not on file Sexual Orientation Not on file Occupation Industry Job Start Date Job End Date Disabled Not on file Not on file Not on file documented as of this encounter Plan of Treatment Not on file documented as of this encounter Procedures Procedure Name Priority Date/Time Associated Diagnosis Comments SCAN - LABS 11/29/2023 documented in this encounter Results * SCAN - LABS (11/29/2023) us Provider Scanning Final Result documented in this encounter Visit Diagnoses Not on filedocumented in this encounter Care Teams Construction And Maintenance Inspector Relationship Specialty Start Date End Date Inez New PA [address] [place] [address] PCP - General 09/14/17 Candido Guerin MD [address] [place] [address] Consulting Physician Gastroenterology 05/04/23 documented as of this encounter
== END 2024-08-08 08:15 | disposition home or self-care (01) ==
LOC: ANHIMG 08:17
PROVIDERS: PCP Physician Assistant; Visit Provider Physician Assistant
DX: Z12.31 Encounter for screening mammogram for malignant neoplasm of breast (principal)
CPT/HCPCS: 77063; 77067

== ENCOUNTER 2024-08-24 00:11 | Day surgery (SDC) | payer MEDICARE, MEDICAID, SELFPAY ==
[2024-08-20 12:50] VITALS: BMI 36.0
--- OUTSIDE RECORDS SUMMARY | 2024-08-24 00:15 | XMS_ITS | Clinical Summary ---
Author Organization [facility] [address] [facility] Address [facility] [place] [address] Care Team Providers Care Speaker Mounter Name Role Phone Inez New Primary Care Provider [phone] Candido Guerin MD Unavailable [phone] Allergies No known active allergies Medications magnesium oxide-Mg AA chelate 300 mg capsule 300 mg daily Active cholecalciferol (VITAMIN D-3) 1,000 unit tablet 1 tablet (1,000 Units total) daily Active potassium gluconate 2.5 mEq tablet 75 mg daily Active meclizine (ANTIVERT) 12.5 mg tabletIndications :Vertigo TAKE 1 TABLET BY MOUTH THREE TIMES A DAY NEEDED FOR DIZZINESS 90 tablet 022 Active fluticasone propionate (FLONASE) 50 mcg/actuation nasal spray Administer 1 spray into each nostril daily 3 each 1 024 Active lamoTRIgine (LaMICtal) 200 mg tablet Take 1 tablet (200 mg total) by mouth 2 (two) times a day 024 Active blood-glucose meter miscIndications:T ype 2 diabetes mellitus without complication, without long-term current use of insulin ([facility]/HCC) ([facility]) Use daily for monitoring of diabetes. 1 each 024 Active blood glucose diagnostic (glucose blood) stripIndications: Type 2 diabetes mellitus with hyperlipidemia (HCC) Use test strip to check blood glucose level once daily. Patient has an One Touch Verio Reflex Glucose Meter so will need test strips to be used with it. 100 each 024 2024 Active lancets (onetouch ultrasoft) miscIndications:T ype 2 diabetes mellitus with hyperlipidemia (HCC) Check blood sugar one time a day. 100 each 4 024 Active FLUoxetine (PROzac) 40 mg capsule Take 1 capsule (40 mg total) by mouth daily Active albuterol HFA (Ventolin HFA) 90 mcg/actuation inhaler Inhale 2 puffs every 4 (four) hours as needed for wheezing 3 each 3 024 Active omeprazole (PriLOSEC) 40 mg capsule Take 1 capsule (40 mg total) by mouth daily 90 capsule 1 024 Active rosuvastatin (CRESTOR) 20 mg tabletIndications :Hyperlipidemia, unspecified hyperlipidemia type Take 1 tablet (20 mg total) by mouth daily 025 Active lisinopriL (PRINIVIL,ZESTRIL ) 20 mg tablet Take 1 tablet (20 mg total) by mouth daily 90 tablet 025 Active nebivoloL (BYSTOLIC) 5 mg tabletIndications :Hypertension associated with diabetes (HCC) Take 1 tablet (5 mg total) by mouth daily 30 tablet 1 025 Active fluticasone furoate-vilantero L (Breo Ellipta) 200-25 mcg/dose diskus inhalerIndication s:Chronic obstructive pulmonary disease, unspecified COPD type (HCC) Inhale 1 puff daily Rinse mouth with water after use. Do not swallow. 90 each 1 025 Active metFORMIN (GLUCOPHAGE) 500 mg tabletIndications :Type 2 diabetes mellitus with hyperlipidemia (HCC) Take 1 tablet (500 mg total) by mouth daily with breakfast 90 tablet 2 025 Active clonazePAM (KlonoPIN) 0.5 mg tablet Take 1 tablet (0.5 mg total) by mouth 2 (two) times a day 0 019 2024 Discontinued cetirizine (ZyrTEC) 10 mg tablet Take 1 tablet (10 mg total) by mouth daily 90 tablet 021 2024 Discontinued(T herapy completed) rosuvastatin (CRESTOR) 20 mg tabletIndications :Hyperlipidemia, unspecified hyperlipidemia type Take 1 tablet (20 mg total) by mouth daily 90 tablet 1 024 2024 Discontinued(R eorder) ipratropium (ATROVENT) 42 mcg (0.06 %) nasal sprayIndications: PND (post-nasal drip) Administer 2 sprays into each nostril 3 (three) times a day 30 mL 3 024 2024 Discontinued(T herapy completed) metFORMIN (GLUCOPHAGE) 500 mg tablet Take 1 tablet (500 mg total) by mouth daily with breakfast 90 tablet 2 024 2024 Discontinued(R eorder) fluticasone furoate-vilantero L (Breo Ellipta) 200-25 mcg/dose diskus inhalerIndication s:Chronic obstructive pulmonary disease, unspecified COPD type (HCC) Inhale 1 puff daily Rinse mouth with water after use. Do not swallow. 90 each 1 025 2024 Discontinued(R eorder) fluticasone furoate-vilantero L (Breo Ellipta) 200-25 mcg/dose diskus inhalerIndication s:Chronic obstructive pulmonary disease, unspecified COPD type (HCC) Inhale 1 puff daily Rinse mouth with water after use. Do not swallow. 90 each 1 025 2024 Discontinued(R eorder) metFORMIN (GLUCOPHAGE) 500 mg tabletIndications :Type 2 diabetes mellitus with hyperlipidemia (HCC) Take 1 tablet (500 mg total) by mouth daily with breakfast 90 tablet 2 025 2024 Discontinued(R eorder) fluticasone furoate-vilantero L (Breo Ellipta) 200-25 mcg/dose diskus inhalerIndication s:Chronic obstructive pulmonary disease, unspecified COPD type (HCC) Inhale 1 puff daily Rinse mouth with water after use. Do not swallow. 90 each 025 2024 Discontinued(R eorder) metFORMIN (GLUCOPHAGE) 500 mg tabletIndications :Type 2 diabetes mellitus with hyperlipidemia (HCC) Take 1 tablet (500 mg total) by mouth daily with breakfast 90 tablet 2 025 2024 Discontinued(R eokaliaer) Active Problems Problem Noted Date Diagnosed Date Hypertension associated with diabetes 08/15/2024 Elevated blood pressure reading 08/13/2024 Assessment & Plan (08/13/2024 1:19 PM GAME PROGRAMMER): Advised patient it is difficult to know if she has true hypertension versus anxiety/panic. Recommend doing home readings and calling us in a couple of weeks with those readings. If she can not do them at home she can always come in but I know transportation is sometimes difficult. Need for influenza vaccination 06/11/2024 Assessment & Plan (06/11/2024 12:16 PM GAME PROGRAMMER): Flu vaccine updated in the office today Annual physical exam 06/11/2024 Assessment & Plan (06/11/2024 12:16 PM GAME PROGRAMMER): Encouraged healthy lifestyle, good nutrition and exercise. Encouraged Calcium and Vitamin D and weight bearing exercise for bone health. Reviewed immunizations Reviewed age appropirate screenings. BMI 40.0-44.9, adult 06/11/2024 Assessment & Plan (08/15/2024 10:04 AM GAME PROGRAMMER): Discussed the patient's BMI. The BMI is above average. BMI management plan is completed. BMI Follow-up includes: nutrition counseling, exercise counseling and education provided. Assessment & Plan (08/01/2024 11:21 AM GAME PROGRAMMER): Discussed the patient's BMI. The BMI is above average. BMI management plan is completed. BMI Follow-up includes: nutrition counseling, exercise counseling and education provided. Assessment & Plan (06/11/2024 12:16 PM GAME PROGRAMMER): Discussed the patient's BMI. The BMI is above average. BMI management plan is completed. BMI Follow-up includes: nutrition counseling, exercise counseling and education provided. Elevated TSH 03/17/2024 Assessment & Plan (03/18/2024 8:08 PM CDT): Check labs Abnormal thyroid screen (blood) 03/17/2024 Type 2 diabetes mellitus wit hout complication, without long-term current use of insulin ([facility]) 03/17/2024 Assessment & Plan (08/13/2024 1:18 PM GAME PROGRAMMER): Stressed importance of continued A1c control to minimize the penitentiary effects of diabetes. Bring accuchecks to office when instructed to do so. Check A1c about every 3-6 months. Take medication as prescribed. Get annual eye exam. Encouraged GLENDY/Statin if able to tolerate. Encouraged weight control and encouraged diabetic diet and exercise. A1c is nicely controlled at 5.9. Continue metformin 500 mg Assessment & Plan (06/11/2024 12:15 PM GAME PROGRAMMER): Stressed importance of continued A1c control to minimize the penitentiary effects of diabetes. Bring accuchecks to office [...] Discussed with patient at length diabetes, pathogenesis, penitentiary sequela, end organ damage, diet/exercise/weight loss, and [...] feet on a regular basis to avoid intermission coordinator problems. Offered referral to stress test technician. Start metformin 500 mg 1 tablet daily [...] referral Assessment & Plan (09/07/2023 10:34 PM GAME PROGRAMMER): Ears are clear. Suspect eustachian tube dysfunction. Recommend Flonase, mucinex and antihistamine. If symptoms persist, may need ENT referral. Morbid obesity 07/22/2022 Assessment & Plan (08/01/2024 11:22 AM GAME PROGRAMMER): Discussed the patient's BMI. The BMI is above average. BMI management plan is completed. BMI Follow-up includes: nutrition counseling, exercise counseling and education provided. Assessment & Plan (06/11/2024 12:15 PM GAME PROGRAMMER): Discussed the patient's BMI. The BMI is above average. BMI management plan is completed. BMI Follow-up includes: nutrition counseling, exercise counseling and education provided. Assessment & Plan (03/18/2024 8:06 PM CDT): Discussed the patient's BMI. The BMI is above average. BMI management plan is completed. BMI Follow-up includes: nutrition counseling, exercise counseling and education provided. Assessment & Plan (09/07/2023 10:31 PM GAME PROGRAMMER): Discussed the patient's BMI. The BMI is above average. BMI management plan is completed. BMI Follow-up includes: nutrition counseling, exercise counseling and education provided. Patient has an obesity-related condition (not limited to: hypertension, obstructive sleep apnea, osteoarthritis, hyperlipidemia, diabetes, etc.). Therefore, morbid obesity may be documented for patients with a BMI between 35.00-39.99. Assessment & Plan (05/21/2023 3:46 PM GAME PROGRAMMER): Discussed the patient's BMI. The BMI is above average. BMI management plan is completed. BMI Follow-up includes: nutrition counseling, exercise counseling and education provided. Patient has an obesity-related condition (not limited to: hypertension, obstructive sleep apnea, osteoarthritis, hyperlipidemia, diabetes, etc.). Therefore, morbid obesity may be documented for patients with a BMI between 35.00-39.99. Assessment & Plan (07/22/2022 2:01 PM GAME PROGRAMMER): Discussed the patient's BMI. The BMI is above average. BMI management plan is completed. BMI Follow-up includes: nutrition counseling, exercise counseling and education provided. Patient has an obesity-related condition (not limited to: hypertension, obstructive sleep apnea, osteoarthritis, hyperlipidemia, diabetes, etc.). Therefore, morbid obesity may be documented for patients with a BMI between 35.00-39.99. Symptomatic anemia 05/28/2022 Assessment & Plan (09/07/2023 10:29 PM GAME PROGRAMMER): Known anemia. Has had transfusion. Continue to [...] narcotics and has not really been helping. Positive depression screening 06/10/2020 Assessment & Plan (08/15/2024 10:03 AM GAME PROGRAMMER): 24 Assessment & Plan (07/22/2020 11:47 AM GAME PROGRAMMER): Continue medication same Assessment & Plan (06/14/2020 5:56 PM GAME PROGRAMMER): Pt denies any suicidal or homicidal thoughts. Continue meds per Psychiatrist-- s/p right knee arthroscopic partial medial and [...] Guajardo Assessment & Plan (06/14/2020 5:55 PM GAME PROGRAMMER): Refer back to Ortho. Offered PT. She [...] 09/11/2019 Assessment & Plan (06/11/2024 12:15 PM GAME PROGRAMMER): Mammogram order provided Assessment & Plan (08/23/2021 9:43 PM GAME PROGRAMMER): Mammogram order provided Assessment & Plan (09/26/2020 8:30 PM CDT): Mammogram order provided Assessment & Plan (09/11/2019 9:21 AM CDT): Mammogram order provided Sciatica of right side 06/17/2019 Assessment & Plan (06/17/2019 6:14 PM GAME PROGRAMMER): Voltaren gel Exercise/Start PT Followup if sxs worsen or don't improved. Vertigo 02/28/2019 Assessment & Plan (03/18/2024 8:06 PM CDT): Uses meclizine p.r.n. with good results Assessment & Plan (09/26/2020 8:29 PM CDT): antivert prn Assessment & Plan (03/15/2020 11:09 AM CDT): Persitent vertigo. 02/2020 CT head was essentially negative. She has finally agreed to vestibular therapy. Will still change neurology referral from [place] to [place] as patient able to arranage transportation easier. [...] mellitus with hyperlipidemia 09/2018 Assessment & Plan (08/13/2024 1:17 PM GAME PROGRAMMER): Encouraged patient to follow low fat/low chol diet like the Mediterranean diet. Increase good fats in the diet. Increase exercise. Monitor labs as needed. Continue Crestor Assessment & Plan (06/11/2024 11:51 AM GAME PROGRAMMER): Stressed importance of continued A1c control to minimize the penitentiary effects of diabetes. Bring accuchecks to office [...] 5.9. Tolerating the metformin without difficulty Continue [facility] 20 Assessment & Plan (03/18/2024 8:04 PM CDT): Stressed importance of continued A1c control to minimize the intermission coordinator effects of diabetes. Bring accuchecks to office [...] Increase exercise. Monitor labs as needed. Continue [place] Assessment & Plan (09/07/2023 10:30 PM GAME PROGRAMMER): Encouraged patient to follow low fat/low chol diet like the Mediterranean diet. Increase good fats in the diet. Increase exercise. Monitor labs as needed. Continue with Crestor Assessment & Plan (05/21/2023 3:44 PM GAME PROGRAMMER): Encouraged patient to follow low fat/low chol diet like the Mediterranean diet. Increase good fats in the diet. Increase exercise. Monitor labs as needed. Continue Crestor Assessment & Plan (07/22/2022 1:49 PM GAME PROGRAMMER): Encouraged patient to follow low fat/low chol diet like the Mediterranean diet. Increase good fats in the diet. Increase exercise. Monitor labs as needed. Continue Crestor Assessment & Plan (08/23/2021 9:42 PM GAME PROGRAMMER): Encouraged patient to follow fat/low chol diet [...] 12/04/2018 Assessment & Plan (06/11/2024 12:15 PM GAME PROGRAMMER): Encouraged smoking cessation. Discussed 3 minutes. Reviewed options for assistance with cessation. Reviewed penitentiary sequela associated with smoking. Pt declines assistance at this time but may contact the office at anytime for further help as they desire. Assessment & Plan (03/18/2024 8:05 PM CDT): Encouraged smoking cessation. Discussed 3 minutes. Reviewed options for assistance with cessation. Reviewed intermission coordinator sequela associated with smoking. Pt declines assistance at this time but may contact the office at anytime for further help as they desire. Declines low-dose CT at this point Assessment & Plan (09/07/2023 10:30 PM GAME PROGRAMMER): Encouraged smoking cessation. Discussed 3 minutes. Reviewed options for assistance with cessation. Reviewed penitentiary sequela associated with smoking. Pt declines assistance at this time but may contact the office at anytime for further help as they desire. Assessment & Plan (07/22/2022 1:47 PM GAME PROGRAMMER): Encouraged smoking cessation. Discussed 3 minutes. Reviewed options for assistance with cessation. Reviewed penitentiary sequela associated with smoking. Pt declines assistance at this time but may contact the office at anytime for further help as they desire. Assessment & Plan (08/23/2021 9:42 PM GAME PROGRAMMER): Encouraged smoking cessation. Discussed 3 minutes. Reviewed options for assistance with cessation. Reviewed intermission coordinator sequela associated with smoking. Pt declines assistance at this time but may contact the office at anytime for further help as they desire. Assessment & Plan (04/08/2021 2:56 PM CDT): Encouraged smoking cessation. Discussed 3 minutes. Reviewed options for assistance with cessation. Reviewed intermission coordinator sequela associated with smoking. Pt declines assistance at this time but may contact the office at anytime for further help as they desire. Assessment & Plan (01/18/2021 11:39 PM CDT): Encouraged smoking cessation. Discussed 3 minutes. Reviewed options for assistance with cessation. Reviewed penitentiary sequela associated with smoking. Pt declines assistance at this time but may contact the office at anytime for further help as they desire. Assessment & Plan (09/26/2020 8:30 PM CDT): Encouraged smoking cessation. Discussed 3 minutes. Reviewed options for assistance with cessation. Reviewed penitentiary sequela associated with smoking. Pt declines assistance at this time but may contact the office at anytime for further help as they desire. Assessment & Plan (06/14/2020 5:55 PM GAME PROGRAMMER): Encouraged smoking cessation. Discussed 3 minutes. Reviewed options for assistance with cessation. Reviewed penitentiary sequela associated with smoking. Pt declines assistance at this time but may contact the office at anytime for further help as they desire. Assessment & Plan (03/15/2020 11:10 AM CDT): Encouraged smoking cessation. Discussed 3 minutes. Reviewed options for assistance with cessation. Reviewed penitentiary sequela associated with smoking. Pt declines assistance [...] Reviewed options for assistance with cessation. Reviewed penitentiary sequela associated with smoking. Pt declines assistance at this time but may contact the office at anytime for further help as they desire. Assessment & Plan (06/17/2019 6:16 PM GAME PROGRAMMER): Encouraged smoking cessation. Discussed 3 minutes. Reviewed options for assistance with cessation. Reviewed intermission coordinator sequela associated with smoking. Pt declines assistance at this time but may contact the office at anytime for further help as they desire. Assessment & Plan (01/30/2019 1:03 PM CDT): Encouraged smoking cessation. Discussed approx 3 minutes. Gastroesophageal reflux disease without esophagi tis 12/04/2018 Assessment & Plan (06/11/2024 12:15 PM GAME PROGRAMMER): Continue PPI Assessment & Plan (03/18/2024 8:05 PM CDT): Patient has been following closely with Dr. Guerin GI. She transferred and saw Dr. Nath and had an EGD done. States at this point her symptoms are pretty stable so will just continue to monitor continuing the Bentyl as needed and continue PPI p.r.n. Assessment & Plan (05/21/2023 3:44 PM GAME PROGRAMMER): Continue PPI p.r.n.. Continue per GI Assessment & Plan (07/22/2022 1:47 PM GAME PROGRAMMER): Continue per Dr. Guerin. She is currentl on omeprazole sucralfate. Will await his recommendations Assessment & Plan (08/23/2021 9:42 PM GAME PROGRAMMER): Continue PPI. She is unsure if the Dexilant will continue to be covered by her insurance so she will contact us with the letter she has at home with her options. Assessment & Plan (04/08/2021 2:55 PM CDT): Increased reflux symptoms. She is currently on Dexilant. Encouraged to continue with the same regimen. Will refer her to GI Dr. Zamora at [place] she is due for colonoscopy and may [...] 12/04/2018 Assessment & Plan (06/11/2024 12:15 PM GAME PROGRAMMER): Supplement Assessment & Plan (03/18/2024 8:06 PM CDT): Supplement Assessment & Plan (09/07/2023 10:30 PM GAME PROGRAMMER): Supplement Assessment & Plan (05/21/2023 3:44 PM GAME PROGRAMMER): Supplement Assessment & Plan (07/22/2022 1:47 PM GAME PROGRAMMER): Supplement Assessment & Plan (09/26/2020 8:14 PM CDT): supplement Assessment & Plan (09/11/2019 9:18 AM CDT): supplement Assessment & Plan (01/30/2019 1:02 PM CDT): supplement COPD (chronic obstructive pulmonary disease) 09/2018 Assessment & Plan (08/13/2024 1:18 PM GAME PROGRAMMER): Continue with albuterol and Breo as breathing is stable Assessment & Plan (06/11/2024 12:15 PM GAME PROGRAMMER): Encouraged complete smoking cessation. Continue Breo and albuterol as needed Assessment & Plan (03/18/2024 8:06 PM CDT): Encouraged complete smoking cessation. Continue albuterol nebs and Breo as needed. Assessment & Plan (09/07/2023 10:30 PM GAME PROGRAMMER): Patient with COPD. Continue with albuterol and Breo. Assessment & Plan (05/21/2023 3:44 PM GAME PROGRAMMER): Continue Symbicort and albuterol p.r.n. continue Flonase Assessment & Plan (07/22/2022 1:47 PM GAME PROGRAMMER): Stressed smoking cessation. Continue Symbicort albuterol inhaler nebulizer p.r.n. Assessment & Plan (07/27/2021 7:15 AM GAME PROGRAMMER): Continues Symbicort/prn albuterol Still requires Neb Albuterol [...] basis as instructed. New prescription sent to [facility]. [id number]-[id number] completed today Assessment & Plan (09/26/2020 8:14 PM CDT): Continue Symbicort and Albuterol prn Assessment & Plan (03/15/2020 11:10 AM CDT): Continue current regimen. Stop smoking Assessment & Plan (09/11/2019 9:18 AM CDT): STOP smoking. Continue with current regimen inhalers Albuterol/Symbicort Assessment & Plan (01/30/2019 12:54 PM CDT): Continue with Symbicort SHERRY (obstructive sleep apnea) 12/02/2018 Assessment & Plan (06/11/2024 11:43 AM GAME PROGRAMMER): Patient has established with Dr. Manuel. She had her sleep study test that did confirm sleep apnea. Awaiting the titration study Assessment & Plan (03/18/2024 8:03 PM CDT): Patient was diagnosed with sleep apnea at [facility] with Dr. Joseph. She would not wear the mask so sent the machine back. Has been untreated for many years. Continues to snore and have daytime sleepiness. Strongly encouraged re- evaluation. Willing to see Dr. Manuel at [facility]. Referral placed Assessment & Plan (09/07/2023 10:30 PM GAME PROGRAMMER): Continue with CPAP Assessment & Plan (07/22/2022 1:36 PM GAME PROGRAMMER): Continue CPAP Assessment & Plan (04/08/2021 2:56 [...] Mental health problem 12/02/2018 Assessment & Plan (08/13/2024 1:17 PM GAME PROGRAMMER): Continue to follow with Shakira in [place] Dr. Etienne's office. She stopped her clonazepam couple of months ago had been doing fine but noticing increased symptoms. She also states she has not gotten her Rexulti which can definitely come into play of controlling some of the symptoms. Encouraged her to still reach out to Shakira with her having increased panic attacks to see if anything else can be done acutely. Assessment & Plan (06/11/2024 11:43 AM GAME PROGRAMMER): Continue per psychiatrist. She continues to take out her medications and they are updated on her chart Assessment & Plan (03/18/2024 8:04 PM CDT): Continue following with her psychiatrist for management of her mental health concerns. Assessment & Plan (09/07/2023 10:30 PM GAME PROGRAMMER): Continue per Psychiatry. Current medications include Klonopin Ingrezza Lexapro Vraylar 6 mg Lamictal and lithium Assessment & Plan (05/21/2023 3:45 PM GAME PROGRAMMER): Continue per psychiatrist Assessment & Plan (07/22/2022 1:45 PM GAME PROGRAMMER): Continue per psychiatrist. Patient states she is on clonazepam, latuda, Hydroxyzine, Cymbalta and Lexapro Assessment & Plan (08/23/2021 9:42 PM GAME PROGRAMMER): Per psychiatrist Assessment & Plan (04/08/2021 2:58 PM CDT): Continue per Psychiatry Assessment & Plan (06/14/2020 5:56 PM GAME PROGRAMMER): Unsure of exact diagnosis. Medication/treatment plan is [...] 03/17/2024 Assessment & Plan (09/07/2023 10:31 PM GAME PROGRAMMER): Encouraged healthy lifestyle, good nutrition and exercise. Encouraged Calcium and Vitamin D and weight bearing exercise for bone health. Reviewed immunizations. Reviewed age appropirate screenings. Medicare Wellness Documentation is completed within the chart BMI 38.0-38.9,adult 05/21/2023 09/07/19 24 Assessment & Plan (05/21/2023 3:46 PM GAME PROGRAMMER): Discussed the patient's BMI. The BMI is above average. BMI management plan is completed. BMI Follow-up includes: nutrition counseling, exercise counseling and education provided. BMI 39.0-39.9,adult 07/22/2022 05/04/20 23 Assessment & Plan (07/22/2022 1:48 PM GAME PROGRAMMER): Discussed the patient's BMI. The BMI is above average. BMI management plan is completed. BMI Follow-up includes: nutrition counseling, exercise counseling and education provided. Need for vaccination 07/22/2022 024 Assessment & Plan (05/21/2023 3:46 PM GAME PROGRAMMER): Flu vaccine updated in the office Assessment & Plan (07/22/2022 1:48 PM GAME PROGRAMMER): Flu vaccine at the office today Encounter for screening mamm ogram for malignant neoplasm of breast 07/22/2022 09/07/2023 Assessment & Plan (07/22/2022 1:48 PM GAME PROGRAMMER): Mammogram order provided Bloody diarrhea 04/08/2021 09/07/2023 [...] 09/07/2023 Assessment & Plan (07/22/2022 1:48 PM GAME PROGRAMMER): Encouraged healthy lifestyle, good nutrition and exercise. [...] 2015. Prefers to see a provider at [facility]. She is also having burning in the [...] [id number]/14/[id number] Assessment & Plan (08/23/2021 9:43 PM GAME PROGRAMMER): Obesity is unchanged. Discussed the patient's BMI. [...] 23 Assessment & Plan (07/27/2021 7:21 AM GAME PROGRAMMER): Obesity is unchanged. Discussed the patient's BMI. [...] onset of sxs. Check COVID test thru [facility] collection site in [place]. Treat sxs with Tylenol, Cough/cold medication otc [...] you Additional Steps to avoid exposure/spread include: Avoid crowded places where close contact with others may occur, such as shopping centers, movie theaters, dormitories, or stadiums. Avoid transit where close contact with others may occur, such as planes, trains, and buses. Maintain a distance of approximately 6 feet from other people whenever possible (spacing out if you are in a line, leaving 2 seats in between others at a waiting room when possible). Wash your hands with soap and water often. If needed, use a hand maintenance trainer that contains at least 60% alcohol. Clean and disinfect frequently touched surfaces such as tables, doorknobs, countertops, etc daily. Avoid touching your eyes, nose, and mouth [...] 04/08/2021 Assessment & Plan (07/22/2020 11:47 AM GAME PROGRAMMER): Declines covid 19 testing at this time. Will start on ceftin 500mg bid x 7 days. She was advised to report to office if having otorrhea or worsening of symptoms. Need for immunization against influenza 06/14/2020 02/17/2021 Assessment & Plan (06/14/2020 5:57 PM GAME PROGRAMMER): Updated in office today BMI 37.0-37.9, adult 06/10/2020 024 Assessment & Plan (09/07/2023 10:31 PM GAME PROGRAMMER): Discussed the patient's BMI. The BMI is above average. BMI management plan is completed. BMI Follow-up includes: nutrition counseling, exercise counseling and education provided. Assessment & Plan (06/10/2020 1:35 PM GAME PROGRAMMER): Obesity is unchanged. Discussed the patient's BMI. The BMI is above average. BMI management plan is completed. BMI Follow-up includes: nutrition counseling, exercise counseling and education provided.Obesity is unchanged. Discussed the patient's BMI. BMI 35.0-35.9,adult 03/15/2020 06/10/20 Acute lateral meniscal tear, right, subsequent encounter [...] 03/17/2024 Assessment & Plan (09/07/2023 10:30 PM GAME PROGRAMMER): Probably multifactorial. Check labs and followup to re-evaluate Assessment & Plan (09/11/2019 9:21 AM CDT): Probably multifactorial. Check labs and followup to re-evaluate Hyperglycemia 09/11/2019 03/06/2024 Assessment & Plan (09/07/2023 10:30 PM GAME PROGRAMMER): Pre-diabetes/hyperglycemia is a precursor to Dm. Stressed [...] 08/11/2017 07/22/2022 Left knee pain 10/27/2015 04/08/2021 Encounters Date Type Department Care Team Description 08/23/2024 7:47 PM GAME PROGRAMMER Hospital Encounter [facility] [address] [place] [address] SHERRY (obstructive sleep apnea) 08/23/[address] [place] [phone] Inez New PA 08/23/[address] [place] [phone] Inez New PA Medication Request 08/23/[address] [place] [phone] Inez New PA 08/20/[address] [place] [phone] Inez New PA 08/15/2024 10:00 AM GAME PROGRAMMER Office Visit [address] [place] [phone] Inez New [place] Positive depression screening (Primary Dx); BMI 40.0-44.9, adult (HCC); Elevated blood pressure reading; Hypertension associated with diabetes (HCC) 08/01/2024 11:00 AM GAME PROGRAMMER Telemedicine [address] [place] [phone] Inez New PA Type 2 diabetes mellitus without complication, without long-term current use of insulin (CMS/HCC) (HCC) (Primary Dx); Elevated blood pressure reading; Chronic obstructive pulmonary disease, unspecified COPD type (HCC); Type 2 diabetes mellitus with hyperlipidemia (HCC); Mental health problem; BMI 40.0-44.9, adult (HCC); Morbid obesity (HCC); Hyperlipidemia, unspecified hyperlipidemia type 07/30/[address] [place] [phone] Inez New PA 07/26/[address] [place] [phone] Inez New PA 07/26/[address] [place] [phone] Inez New PA 07/25/[address] [place] [phone] Inez New PA 07/18/2024 Orders Only [address] [place] [phone] Inez New PA 06/13/[address] [place] [phone] Inez New PA Medical Question/Miscellaneous 06/11/2024 9:30 AM GAME PROGRAMMER Office Visit [address] [place] [phone] Inez New PA Annual physical exam (Primary Dx); Type 2 diabetes mellitus without complication, without long-term current use of insulin (CMS/HCC) (HCC); Breast cancer screening by mammogram; Chronic obstructive pulmonary disease, unspecified COPD type (HCC); Vitamin D deficiency; Gastroesophageal reflux disease without esophagitis; Type 2 diabetes mellitus with hyperlipidemia ([facility]); Mental health problem; Fatigue, unspecified type; SHERRY (obstructive sleep apnea); Cigarette smoker; Need for influenza vaccination; BMI 45.0-49.9, adult ([facility]); Morbid obesity ([facility]) 05/25/2024 Orders Only [address] [place] [phone] Inez New PA Elevated TSH (Primary Dx); Type 2 diabetes mellitus with hyperlipidemia ([facility]); Vitamin D deficiency; Hyperlipidemia, unspecified hyperlipidemia type; Hyperthyroidism 05/24/[address] [place] [phone] Inez New PA labs need done prior to 06/11 visit 05/24/2024 Orders Only [address] [place] [phone] Inez New PA from Last 3 Months Immunizations Immunization Administration Dates Next Due Influenza, Quadrivalent, Spl it, Preservative Free, Intramuscular 05/04/2023,07/22/2022,04/06/2021,06/10 Influenza, Trivalent, Preser vative Free, Intramuscular 06/11/2024 Influenza, Unspecified 07/02/2019 Pfizer SARS-CoV-2 Monovalent Vaccination (12+ Yrs) PURPLE 11/25/2020,10/30/2020 Tdap 06/30/2017 Surgical History Surgery Date Site/Laterality Comments ESOPHAGOGASTRODUODENOSCOPY 09/02/2015 - 10/02/2015 COLONOSCOPY 09/02/2015 - 10/02/2015 ENDOMETRIAL ABLATION W/ NOVASURE KNEE ARTHROSCOPY Left KNEE ARTHROSCOPY 01/22/2020 Right SINUS SURGERY 01/06/2017 Bilateral Medical History Medical History Date Comments Asthma Depression Hypercholesteremia COPD (chronic obstructive pulmonary disease) (HC C) Diabetes (HCC) GERD (gastroesophageal reflux disease) Sinusitis Ear problems Family History Medical History Relation Name Comments Heart attack Father Heart disease Father Heart disease Mother Rectal cancer Mother Relation Name Status Comments Father Mother Alive Social History Tobacco Use Types Packs/Day Years Used Date Smoking Tobacco: Some Days Cigarettes 0.5 20 Smokeless Tobacco: Never Alcohol Use Standard Drinks/Week Comments Yes 0 (1 standard drink = 0.6 oz pur e alcohol) AUDIT-C Answer Date Recorded Q1: How often do you have a drink containing alc ohol? 2-3 times a week 08/15/2024 Q2: How many drinks containi ng alcohol do you have on a typical day when you are drinking? 5 or 6 08/15/2024 Q3: How often do you have si x or more drinks on one occasion? Never 08/15/2024 PHQ-2 Answer Date Recorded PHQ-2 Total Score (If total score is 3 or more points, staff should administer the PHQ-9) 6 08/15/2024 Comments No Sex and Gender Information Value Date Recorded Sex Assigned at Not on file Legal Sex Female 4:54 AM GAME PROGRAMMER Gender Identity Not on file Sexual Orientation Not on file Occupation Industry Job Start Date Job End Date Disabled Not on file Not on file Not on file Obstetrics History Last Filed Vital Signs Vital Sign Reading Time Taken Comments Blood Pressure 164/86 08/15/2024 10:04 AM GAME PROGRAMMER Pulse 85 08/15/2024 10:04 AM GAME PROGRAMMER Temperature 36.3 C (97.4 F) 08/15/2024 10:04 AM GAME PROGRAMMER Respiratory Rate 18 05/18/2024 9:37 AM GAME PROGRAMMER Oxygen Saturation 97% 08/15/2024 10:04 AM GAME PROGRAMMER Inhaled Oxygen Concentration - - Weight 105 kg (231 lb 6.4 oz) 08/15/2024 10:04 A M GAME PROGRAMMER Height 154.9 cm (5' 1 ) 08/15/2024 10:04 AM GAME PROGRAMMER Body Mass Index 43.72 08/15/2024 10:04 AM GAME PROGRAMMER Plan of Treatment Health Maintenance Due Date Last Done Comments Hepatitis C Screening 1971 Dilated Eye Exam 1971 Foot Exam 1971 Hepatitis B Screening 1989 Pneumococcal vaccine <65 (1 of 2 - PCV) 1990 Cervical Cancer Screening 08/03/2018 08/03/2017, Zoster Vaccine (1 of 2) 2021 Covid-19 Vaccine (3 - 2023-2 5 season) 2024 11/25/2020, 10/30/2020 Hemoglobin A1C 11/29/2024 06/01/2024, 02/02, 03/31/2023, Additional history exists Albumin Creatinine Ratio, Urine 06/01/2025 Lipid Panel 06/01/2025 06/01/2024, 02/02, 03/31/2023, Additional history exists eGFR 06/01/2025 06/01/2024, 02/02, 03/31/2023, Additional history exists Regular Well Visit/Exam 18-64 06/11/2025, 09/07/2023, 07/22/2022, Additional history exists Breast Cancer Screening-Mammogram 08/08/2025 08/08/2024, 07/19/2023, 11/16/2018, Additional history exists Depression Screening 08/15/2025 08/15/2024, 08/15/2024, 08/01/2024, Additional history exists Colon Cancer Screening-Colonoscopy 05/26/20262020, 05/26/2021 DTaP/Tdap/Td Vaccine (2 - Td or Tdap) 06/30/2027 06/30/2017 Influenza Vaccine Completed 06/11/2024, , 07/22/2022, Additional history exists Procedures Procedure Name Priority Date/Time Associated Diagnosis Comments ECG 12-LEAD Routine 08/15/2024 10:46 AM GAME PROGRAMMER Elevated blood pressure reading SCREENING MAMMOGRAM BILATERAL W ALBERTO Schedule Routine, Read Routine (OP Routine) 08/08/2024 2:15 PM GAME PROGRAMMER Breast cancer screening by mammogram VITAMIN D 25 HYDROXY Routine 06/01/2024 7:12 AM GAME PROGRAMMER Vitamin D deficiency ALBUMIN CREATININE RATIO, URINE Routine 06/01/2024 7:12 AM GAME PROGRAMMER Type 2 diabetes mellitus with hyperlipidemia (HCC) COMPREHENSIVE METABOLIC PANEL Routine 06/01/2024 7:11 AM GAME PROGRAMMER Type 2 diabetes mellitus with hyperlipidemia (HCC) LIPID PANEL Routine 06/01/2024 7:11 AM GAME PROGRAMMER Hyperlipidemia, unspecified hyperlipidemia type HEMOGLOBIN A1C Routine 06/01/2024 7:11 AM GAME PROGRAMMER Type 2 diabetes mellitus with hyperlipidemia (HCC) TSH Routine 06/01/2024 7:11 AM GAME PROGRAMMER Elevated TSH Hyperthyroidism HM COLONOSCOPY Routine 05/26/2021 THINPREP TECHNICAL SPECIALIST PAP (IMAGE GUIDED) LIQUID-BASED PREP Routine 08/03/2017 12:16 PM GAME PROGRAMMER from Last 3 Months or Most Recently Relevant to Health Maintenance Results * ECG 12 lead (08/15/2024 10:46 AM GAME PROGRAMMER) us Inez V[facility]ASCO ECG ORDERABLES Final Resu lt * Screening Mammogram Bilateral W Alberto (08/08/2024 2:15 PM GAME PROGRAMMER) Anatomical Region Laterality Modality Breast Bilateral Mammography Impressions 08/08/2024 2:15 PM GAME PROGRAMMER 1.No mammographic evidence of malignancy 2.Routine screening recommended for 1 year BI-RADS Category 1 Negative us Inez V[facility] IMG MAMMO PROCEDURES Final Result * Albumin Creatinine Ratio, Urine (06/01/2024 7:12 AM GAME PROGRAMMER) Creatinine, ur 42 20 - 275 mg/dL [...] in albumin excretion as follows: Albuminuria Category Result (mg/g creatinine) Normal to Mildly increased <30 Moderately increased 30-299 Severely increased > OR = 300 The ADA recommends that at least two of three specimens collected within a 3-6 month period be abnormal before considering a patient to be within a diagnostic category. Urine 06/01/2024 7:12 AM GAME PROGRAMMER 06/01/2024 7:13 AM GAME PROGRAMMER Inez VELASCO LAB URINE ORDERABLES Final Result Performing Organization Address [facility] Co de Phone Number [facility] [address] [place] [address] * Vitamin D 25 hydroxy (06/01/2024 7:12 AM GAME PROGRAMMER) Vitamin D 25-OH 37 30 - 100 ng/mL [facility] Comment: Vitamin D Status 25-OH Vitamin D: Deficiency: <20 ng/mL Insufficiency: 20 - 29 ng/mL Optimal: > or = 30 ng/mL For 25-OH Vitamin D testing on patients on D2-supplementation and patients for whom quantitation of D2 and D3 fractions is required, the QuestAssureD(TM) 25-OH VIT D, (D2,D3), LC/MS/MS is recommended: order code 90957 (patients >2yrs). See Note 1 Note 1 For additional information, please refer to http://education.[employer]/faq/GVG561 (This link is being provided for informational/ educational purposes only.) Blood 06/01/2024 7:12 AM GAME PROGRAMMER 06/01/2024 7:13 AM GAME PROGRAMMER Inez [facility] LAB BLOOD ORDERABLES Final Result Performing Organization Address [facility]/ZIP Co de Phone Number [facility] [address] [place] [address] * TSH (06/01/2024 7:11 AM GAME PROGRAMMER) Pathologist [facility] TSH 2.15 mIU/L [facility] Comment: Reference Range > or = 20 Years 0.40-4.50 Ranges First trimester 0.26-2.66 Second trimester 0.55-2.73 Third trimester 0.43-2.91 Blood 06/01/2024 7:11 AM GAME PROGRAMMER 06/01/2024 7:11 AM GAME PROGRAMMER Narrative [facility] - 06/01/2024 9:56 PM GAME PROGRAMMER FASTING:YES FASTING: YES Inez [facility] LAB BLOOD ORDERABLES Final Result Performing Organization Address [facility] de Phone Number [facility] [address] [place] [address] * (ABNORMAL) Hemoglobin A1c (06/01/2024 7:11 AM GAME PROGRAMMER) [facility] Hgb A1C 5.9(H) <5.7 % of total Hgb [facility] Comment: For someone without known diabetes, a [...] diabetes for children. Blood 06/01/2024 7:11 AM GAME PROGRAMMER 06/01/2024 7:11 AM GAME PROGRAMMER Narrative [facility] - 06/01/2024 9:56 PM GAME PROGRAMMER FASTING:YES FASTING: YES Inez [facility] LAB BLOOD ORDERABLES Final Result Performing Organization Address [facility] Co de Phone Number [facility] [address] [place] [address] * (ABNORMAL) Lipid panel (06/01/2024 7:11 AM GAME PROGRAMMER) [facility] Cholesterol 142 <200 mg/dL [facility] HDL 47(L) > OR = 50 mg/dL [facility] Triglycerides 124 <150 mg/dL [facility] LDL 74 mg/dL (calc) [facility] Comment: Reference range: <100 Desirable range <100 mg/dL for primary prevention; <70 mg/dL for patients with CHD or diabetic patients with > or = 2 CHD risk factors. LDL-C is now calculated using the Crystal calculation, which is a validated novel method providing better accuracy than the Friedewald equation in the estimation of LDL-C. Arley COSTA et al. FRANKY. 2013;310(19): 2971-8962 (http://education.[employer]/faq/HML312) Chol/HDL ratio 3.0 <5.0 (calc) [facility] Non-HDL, (LDL+VLDL) 95 <130 mg/dL (calc) [facility] Comment: For patients with diabetes plus 1 major ASCVD risk factor, treating to a non-HDL-C goal of <100 mg/dL (LDL-C of <70 mg/dL) is considered a therapeutic option. Blood 06/01/2024 7:11 AM GAME PROGRAMMER 06/01/2024 7:11 AM GAME PROGRAMMER Narrative [facility] - 06/01/2024 9:56 PM GAME PROGRAMMER FASTING:YES FASTING: YES Inez [facility] LAB BLOOD ORDERABLES Final Result [facility] [address] [place] [address] * Comprehensive metabolic panel (06/01/2024 7:11 AM GAME PROGRAMMER) [facility] Glucose 98 65 - 99 mg/dL [facility] Comment: Fasting reference interval BUN 11 7 - 25 mg/dL [facility] Creatinine 0.75 0.50 - 1.03 mg/dL [facility] eGFR 95 > OR = 60 mL/min/1.7 3m2 [facility] BUN/creat ratio SEE NOTE: 6 (calc) [facility] Comment: Not Reported: BUN and Creatinine are within reference range. Sodium 136 135 - 146 mmol/L [facility] Potassium, pl 4.3 3.5 - 5.3 mmol/L [facility] Chloride 102 98 - 110 mmol/L [facility] CO2 26 20 - 32 mmol/L [facility] Calcium 9.5 8.6 - 10.4 mg/dL [facility] Protein, sr 6.8 6.1 - 8.1 g/dL [facility] Albumin 4.6 3.6 - 5.1 g/dL [facility] GLOBULIN 2.2 1.9 - 3.7 g/dL (calc) [facility] Alb/glob ratio 2.1 1.0 - 2.5 (calc) [facility] Bilirubin, total 0.6 0.2 - 1.2 mg/dL [facility] Alk phos 69 37 - 153 U/L [facility] AST 24 10 - 35 U/L [facility] ALT (SGPT) 21 6 - 29 U/L [facility] Blood 06/01/2024 7:11 AM GAME PROGRAMMER 06/01/2024 7:11 AM GAME PROGRAMMER Narrative [facility] - 06/01/2024 9:56 PM GAME PROGRAMMER FASTING:YES FASTING: YES Result [facility] Inez V[facility] LAB BLOOD ORDERABLES Final Result [facility] [address] [place] [address] * (ABNORMAL) COLONOSCOPY (05/26/2021) Historical Provider HEALTH MAINTENANCE Edited Result - Final * ThinPrep Gynecologic Pap Test (Image-guided), Liquid-based Preparation (08/03/2017 12:16 PM GAME PROGRAMMER) CLINICAL INFORMATION [facility] - [facility] HISTORICAL RESULTS Comment:Information not prov ided LMP: 07/19 [facility] [place] PREV. PAP: [facility] - [facility] HISTORICAL RESULTS Comment:MANY YEARS AGO PREV. BX: [facility] HISTORICAL RESULTS Comment:INFORMATION NOT PROV IDED SOURCE: [facility] Comment:Cervix, Endocervix STATEMENT OF ADEQUACY: [facility] HISTORICAL RESULTS Comment: Satisfactory for evaluation. Endocervical/transformation zone component present. INTERPRETATION/RESU LT: [facility]ULTS Comment:Negative for intraep ithelial lesion or malignancy. COMMENT: [facility] Comment: This Pap test has been evaluated with computer assisted technology. FLIGHT INSTRUCTOR: [facility] HISTORICAL RESULTS Comment: YQ, CT(ASCP) CT screening location: [place] [address] [place] [address] 08/03/2017 12:1 6 PM GAME PROGRAMMER 08/09/2017 8:55 PM GAME PROGRAMMER Narrative [facility] - 08/09/2017 8:41 PM GAME PROGRAMMER 0 PERFORMING LAB: , [place] [address] [facility] [address] Mahi Mcmahon MD Historical Provider LAB PATHOLOGY ORDERABLES Final Result [facility] HISTORICAL RESULTS from Last 3 Months or Most Recently Relevant to Health Maintenance Insurance [facility] MEDICARE SOLUTIONS IDPA MEDICARE SOLUTIONS Advance Directives For more information, please contact: [phone] * Full Code (Latest Code Status on File) Date Activated Date Inactivated Comments 05/29/2022 12:59 PM 05/30/2022 2:26 PM * Full Code Date Activated Date Inactivated Comments 05/28/2022 7:20 PM 05/29/2022 12:59 PM Care Teams Speaker Mounter Relationship Specialty Start Date End Date Inez New PA [address] [facility] [address] [place] [address] PCP - General 09/14/17 Candido Guerin MD [address] [place] [address] Consulting Physician Gastroenterology 05/04/23
--- OUTSIDE RECORDS SUMMARY | 2024-08-24 00:15 | XMS_ITS | Encounter Summary ---
Author Organization [facility] Facility Care Team Providers Care Energy Projects Lead Name Role Phone Inez New Primary Care Provider [phone] Candido Guerin MD Unavailable [phone] Encounter Details Date Type Department Care Team (Latest Contact Info) Description 09/26/2015 Orders Only [facility] ProviderVishal MD [address] [place] [address] Social History Tobacco Use Types Packs/Day Years Used Date Smoking Tobacco: Never Assessed Comments Unknown Sex and Gender Information Value Date Recorded Sex Assigned at Not on file Legal Sex Female 4:54 AM SINKER WINDER Gender Identity Not on file Sexual Orientation [...] documented as of this encounter Care Teams Energy Projects Lead Relationship Specialty Start Date End Date Inez New PA [address] [place] [address] PCP - General 09/14/17 Candido Guerin MD [address] [place] [address] Consulting Physician Gastroenterology 05/04/23 documented as of this encounter
--- OUTSIDE RECORDS SUMMARY | 2024-08-24 00:15 | XMS_ITS | Encounter Summary ---
Author Organization [facility] Address [address] [place] [address] Care Team Providers Care Engine Oiler Name Role Phone Inez New Primary Care Provider [phone] Candido Guerin MD Unavailable [phone] Reason for Referral * Sleep Medicine (Routine) - Closed Specialty Diagnoses / Procedures Referred By Contac t Referred To Contact Diagnoses SHERRY (obstructive sleep apnea) Procedures [facility]-Sleep Provider Use Only Jeffy Manuel MD [address] [address] Phone: tel: fax: [place] [address] [place] [address] Phone: tel: fax: Referral ID Status Reason Start Date Expiration Date Visits Re quested Visits Authorized [id number] Closed 05/17/2024 06/16/2025 1 1 UTER INSTALLATION ENGINEER Reason for Visit * Sleep Medicine (Routine) - Closed Specialty Diagnoses / Procedures Referred By Contac t Referred To Contact Diagnoses SHERRY (obstructive sleep apnea) Procedures PSG-Sleep Provider Use Only Jeffy Manuel MD [address] [place] [address] Phone: tel: fax: [facility] [address] [place] [address] Phone: tel: fax: Referral ID Status Reason Start Date Expiration Date Visits Re quested Visits Authorized [id number] Closed 05/17/2024 06/16/2025 1 1 Encounter Details Date Type Department Care Team (Latest Contact Info) Description 08/23/2024 7:47 PM COMPUTER INSTALLATION ENGINEER Hospital Encounter [facility] [address] [place] [address] SHERRY (obstructive sleep apnea) Social History Tobacco Use Types Packs/Day Years [...] on file Legal Sex Female 4:54 AM COMPUTER INSTALLATION ENGINEER Gender Identity Not on file Sexual Orientation Not on file Occupation Industry Job Start Date Job End Date Disabled Not on file Not on file Not on file documented as of this encounter Plan of Treatment Scheduled Orders Name Type Priority Associated Diagnoses Orde r Schedule PSG-Sleep Provider Use Only Sleep Center Routine SHERRY (obstructive sleep apnea) Once for 1 Occurrences starting 08/23/2024 until 08/23/2024 documented as of this encounter Visit Diagnoses Diagnosis SHERRY (obstructive sleep apnea) Obstructive sleep apnea (adult) (pediatric) documented in this encounter Care Teams Engine Oiler Relationship Specialty Start Date End Date Inez New PA [address] [place] [address] PCP - General 09/14/17 Candido Guerin MD [address] [place] [address] Consulting Physician Gastroenterology 05/04/23 documented as of this encounter
--- OUTSIDE RECORDS SUMMARY | 2024-08-24 00:15 | XMS_ITS | Encounter Summary ---
Author Organization [facility] Care Team Providers Care Hob Machine Operator Name Role Phone Inez New Primary Care Provider [phone] Candido Guerin MD Unavailable [phone] Encounter Details Date Type Department Care Team (Latest Contact Info) Description 10/07/2017 Orders Only [facility]INCON[facility] ProviderVishal MD [address] [place] [id number] Social History Tobacco Use Types Packs/Day Years Used Date Smoking Tobacco: Never Assessed Comments Unknown Sex and Gender Information Value Date Recorded Sex Assigned at Not on file Legal Sex Female 4:54 AM PAPERHANGER SUPERVISOR Gender Identity Not on file Sexual Orientation [...] documented as of this encounter Care Teams Hob Machine Operator Relationship Specialty Start Date End Date Inez New [place] [address] [place] [address] PCP - General 09/14/17 Candido Guerin MD [address] [place] [address] Consulting Physician Gastroenterology 05/04/23 documented as of this encounter
--- OUTSIDE RECORDS SUMMARY | 2024-08-24 00:15 | XMS_ITS | Referral Summary ---
Author Organization [facility] [address] Address [address] [place] [id number] Care Team Providers Care Logistics Account Manager Name Role Phone Inez New Primary Care Provider [phone]- [phone] Candido Guerin MD Unavailable [phone] Encounters Date Type Department Care Team Description 08/23/2024 Telephone [place] [id number] [place] [address] Inez New [place] 08/23/[address] [facility] [address] [place] [address] Inez New [place] Medication Request 08/23/[address] [facility] [address] [place] [address] Inez New [place] 08/23/2024 7:47 PM [facility] Encounter [facility] [address] [place] [address] SHERRY (obstructive sleep apnea) 08/20/[address] [facility] [address] [place] [address] Inez New [place] 08/15/2024 10:00 AM MAINTENANCE SUPERVISOR 2ND SHIFT Office Visit [address] [place] [phone] Inez New [place] Positive depression screening (Primary Dx); BMI 40.0-44.9, adult (HCC); Elevated blood pressure reading; Hypertension associated with diabetes (HCC) 08/01/2024 11:00 AM MAINTENANCE SUPERVISOR 2ND SHIFT Telemedicine [address] [place] [phone] Inez New [place] Type 2 diabetes mellitus without complication, without long-term current use of insulin (CMS/HCC) (HCC) (Primary Dx); Elevated blood pressure reading; Chronic obstructive pulmonary disease, unspecified COPD type (HCC); Type 2 diabetes mellitus with hyperlipidemia (HCC); Mental health problem; BMI 40.0-44.9, adult (HCC); Morbid obesity (HCC); Hyperlipidemia, unspecified hyperlipidemia type 07/30/[address] [place] [phone] Inez New [place] 07/26/[address] [place] [phone] Inez New [place] 07/26/[address] [place] [phone] Inez New [place] 07/25/[address] [place] [phone] Inez New [place] 07/18/2024 Orders Only [address] [place] [phone] Inez New [place] 06/13/[address] [place] [phone] Inez New [place] Medical Question/Miscellaneous 06/11/2024 9:30 AM MAINTENANCE SUPERVISOR 2ND SHIFT Office Visit [address] [address] Inez New [place] Annual physical exam (Primary Dx); Type 2 diabetes mellitus without complication, without long-term current use of insulin ([facility]/HCC) ([facility]); Breast cancer screening by mammogram; Chronic obstructive pulmonary disease, unspecified COPD type ([facility]); Vitamin D deficiency; Gastroesophageal reflux disease without esophagitis; Type 2 diabetes mellitus with hyperlipidemia ([facility]); Mental health problem; Fatigue, unspecified type; SHERRY (obstructive sleep apnea); Cigarette smoker; Need for influenza vaccination; BMI 45.0-49.9, adult ([facility]); Morbid obesity ([facility]) 05/25/2024 Orders Only [address] [phone] Inez New [place] Elevated TSH (Primary Dx); Type 2 diabetes mellitus with hyperlipidemia ([facility]); Vitamin D deficiency; Hyperlipidemia, unspecified hyperlipidemia type; Hyperthyroidism 05/24/[address] [phone] Inez New PA labs need done prior to 06/11 visit 05/24/2024 Orders Only [address] [phone] nIez New PA from Last 3 Months Allergies No known [...] into each nostril daily 3 each 1 Active lamoTRIgine (LaMICtal) 200 mg tablet Take 1 tablet (200 mg total) by mouth 2 (two) times a day Active blood-glucose meter miscIndications:T ype 2 diabetes mellitus without complication, without long-term current use of insulin (CMS/HCC) ([facility]) Use daily for monitoring of diabetes. 1 each Active blood glucose diagnostic (glucose blood) stripIndications: Type 2 diabetes mellitus with hyperlipidemia ([facility]) Use test strip to check blood glucose level once daily. Patient has an One Touch Verio Reflex Glucose Meter so will need test strips to be used with it. 100 each 11 024 2024 Active lancets (onetouch ultrasoft) miscIndications:T ype 2 diabetes mellitus with hyperlipidemia ([facility]) Check blood sugar one time a day. [...] 5 mg tabletIndications :Hypertension associated with diabetes ([facility]) Take 1 tablet (5 mg total) by mouth daily 30 tablet 1 025 Active fluticasone furoate-vilantero L (Breo Ellipta) 200-25 mcg/dose diskus inhalerIndication s:Chronic obstructive pulmonary disease, unspecified COPD type ([facility]) Inhale 1 puff daily Rinse mouth with [...] 90 tablet 2 025 2024 Discontinued(R eorder) Active Problems Problem Noted Date Diagnosed Date Hypertension associated with diabetes 08/15/2024 Elevated blood pressure reading 08/13/2024 Assessment & Plan (08/13/2024 1:19 PM MAINTENANCE SUPERVISOR 2ND SHIFT): Advised patient it is difficult to know if she has true hypertension versus anxiety/panic. Recommend doing home readings and calling us in a couple of weeks with those readings. If she can not do them at home she can always come in but I know transportation is sometimes difficult. Need for influenza vaccination 06/11/2024 Assessment & Plan (06/11/2024 12:16 PM MAINTENANCE SUPERVISOR 2ND SHIFT): Flu vaccine updated in the office today Annual physical exam 06/11/2024 Assessment & Plan (06/11/2024 12:16 PM MAINTENANCE SUPERVISOR 2ND SHIFT): Encouraged healthy lifestyle, good nutrition and exercise. Encouraged Calcium and Vitamin D and weight bearing exercise for bone health. Reviewed immunizations Reviewed age appropirate screenings. BMI 40.0-44.9, adult 06/11/2024 Assessment & Plan (08/15/2024 10:04 AM MAINTENANCE SUPERVISOR 2ND SHIFT): Discussed the patient's BMI. The BMI is above average. BMI management plan is completed. BMI Follow-up includes: nutrition counseling, exercise counseling and education provided. Assessment & Plan (08/01/2024 11:21 AM MAINTENANCE SUPERVISOR 2ND SHIFT): Discussed the patient's BMI. The BMI is above average. BMI management plan is completed. BMI Follow-up includes: nutrition counseling, exercise counseling and education provided. Assessment & Plan (06/11/2024 12:16 PM MAINTENANCE SUPERVISOR 2ND SHIFT): Discussed the patient's BMI. The BMI is above average. BMI management plan is completed. BMI Follow-up includes: nutrition counseling, exercise counseling and education provided. Elevated TSH 03/17/2024 Assessment & Plan (03/18/2024 8:08 PM CDT): Check labs Abnormal thyroid screen (blood) 03/17/2024 Type 2 diabetes mellitus wit hout complication, without long-term current use of insulin ([facility]) 03/17/2024 Assessment & Plan (08/13/2024 1:18 PM MAINTENANCE SUPERVISOR 2ND SHIFT): Stressed importance of continued A1c control to minimize the detention effects of diabetes. Bring accuchecks to office when instructed to do so. Check A1c about every 3-6 months. Take medication as prescribed. Get annual eye exam. Encouraged GLENDY/Statin if able to tolerate. Encouraged weight control and encouraged diabetic diet and exercise. A1c is nicely controlled at 5.9. Continue metformin 500 mg Assessment & Plan (06/11/2024 12:15 PM MAINTENANCE SUPERVISOR 2ND SHIFT): Stressed importance of continued A1c control to minimize the detention effects of diabetes. Bring accuchecks to office [...] Discussed with patient at length diabetes, pathogenesis, roofing supervisor sequela, end organ damage, diet/exercise/weight loss, and [...] feet on a regular basis to avoid detention problems. Offered referral to tire molder. Start metformin 500 mg 1 tablet daily [...] referral Assessment & Plan (09/07/2023 10:34 PM MAINTENANCE SUPERVISOR 2ND SHIFT): Ears are clear. Suspect eustachian tube dysfunction. Recommend Flonase, mucinex and antihistamine. If symptoms persist, may need ENT referral. Morbid obesity 07/22/2022 Assessment & Plan (08/01/2024 11:22 AM MAINTENANCE SUPERVISOR 2ND SHIFT): Discussed the patient's BMI. The BMI is above average. BMI management plan is completed. BMI Follow-up includes: nutrition counseling, exercise counseling and education provided. Assessment & Plan (06/11/2024 12:15 PM MAINTENANCE SUPERVISOR 2ND SHIFT): Discussed the patient's BMI. The BMI is above average. BMI management plan is completed. BMI Follow-up includes: nutrition counseling, exercise counseling and education provided. Assessment & Plan (03/18/2024 8:06 PM CDT): Discussed the patient's BMI. The BMI is above average. BMI management plan is completed. BMI Follow-up includes: nutrition counseling, exercise counseling and education provided. Assessment & Plan (09/07/2023 10:31 PM MAINTENANCE SUPERVISOR 2ND SHIFT): Discussed the patient's BMI. The BMI is above average. BMI management plan is completed. BMI Follow-up includes: nutrition counseling, exercise counseling and education provided. Patient has an obesity-related condition (not limited to: hypertension, obstructive sleep apnea, osteoarthritis, hyperlipidemia, diabetes, etc.). Therefore, morbid obesity may be documented for patients with a BMI between 35.00-39.99. Assessment & Plan (05/21/2023 3:46 PM MAINTENANCE SUPERVISOR 2ND SHIFT): Discussed the patient's BMI. The BMI is above average. BMI management plan is completed. BMI Follow-up includes: nutrition counseling, exercise counseling and education provided. Patient has an obesity-related condition (not limited to: hypertension, obstructive sleep apnea, osteoarthritis, hyperlipidemia, diabetes, etc.). Therefore, morbid obesity may be documented for patients with a BMI between 35.00-39.99. Assessment & Plan (07/22/2022 2:01 PM MAINTENANCE SUPERVISOR 2ND SHIFT): Discussed the patient's BMI. The BMI is above average. BMI management plan is completed. BMI Follow-up includes: nutrition counseling, exercise counseling and education provided. Patient has an obesity-related condition (not limited to: hypertension, obstructive sleep apnea, osteoarthritis, hyperlipidemia, diabetes, etc.). Therefore, morbid obesity may be documented for patients with a BMI between 35.00-39.99. Symptomatic anemia 05/28/2022 Assessment & Plan (09/07/2023 10:29 PM MAINTENANCE SUPERVISOR 2ND SHIFT): Known anemia. Has had transfusion. Continue to [...] 06/10/2020 Assessment & Plan (08/15/2024 10:03 AM MAINTENANCE SUPERVISOR 2ND SHIFT): 24 Assessment & Plan (07/22/2020 11:47 AM MAINTENANCE SUPERVISOR 2ND SHIFT): Continue medication same Assessment & Plan (06/14/2020 5:56 PM MAINTENANCE SUPERVISOR 2ND SHIFT): Pt denies any suicidal or homicidal thoughts. [...] Guajardo Assessment & Plan (06/14/2020 5:55 PM MAINTENANCE SUPERVISOR 2ND SHIFT): Refer back to Ortho. Offered PT. She [...] 09/11/2019 Assessment & Plan (06/11/2024 12:15 PM MAINTENANCE SUPERVISOR 2ND SHIFT): Mammogram order provided Assessment & Plan (08/23/2021 9:43 PM MAINTENANCE SUPERVISOR 2ND SHIFT): Mammogram order provided Assessment & Plan (09/26/2020 8:30 PM CDT): Mammogram order provided Assessment & Plan (09/11/2019 9:21 AM CDT): Mammogram order provided Sciatica of right side 06/17/2019 Assessment & Plan (06/17/2019 6:14 PM MAINTENANCE SUPERVISOR 2ND SHIFT): Voltaren gel Exercise/Start PT Followup if sxs worsen or don't improved. Vertigo 02/28/2019 Assessment & Plan (03/18/2024 8:06 PM CDT): Uses meclizine p.r.n. with good results Assessment & Plan (09/26/2020 8:29 PM CDT): antivert prn Assessment & Plan (03/15/2020 11:09 AM CDT): Persitent vertigo. 02/2020 CT head was essentially negative. She has finally agreed to vestibular therapy. Will still change neurology referral from [place] to [place] as patient able to arranage transportation easier. [...] 09/2018 Assessment & Plan (08/13/2024 1:17 PM MAINTENANCE SUPERVISOR 2ND SHIFT): Encouraged patient to follow low fat/low chol diet like the Mediterranean diet. Increase good fats in the diet. Increase exercise. Monitor labs as needed. Continue Crestor Assessment & Plan (06/11/2024 11:51 AM MAINTENANCE SUPERVISOR 2ND SHIFT): Stressed importance of continued A1c control to minimize the roofing supervisor effects of diabetes. Bring accuchecks to office [...] 5.9. Tolerating the metformin without difficulty Continue [facility] 20 Assessment & Plan (03/18/2024 8:04 PM CDT): Stressed importance of continued A1c control to minimize the roofing supervisor effects of diabetes. Bring accuchecks to office [...] Crestor Assessment & Plan (09/07/2023 10:30 PM MAINTENANCE SUPERVISOR 2ND SHIFT): Encouraged patient to follow low fat/low chol diet like the Mediterranean diet. Increase good fats in the diet. Increase exercise. Monitor labs as needed. Continue with Crestor Assessment & Plan (05/21/2023 3:44 PM MAINTENANCE SUPERVISOR 2ND SHIFT): Encouraged patient to follow low fat/low chol diet like the Mediterranean diet. Increase good fats in the diet. Increase exercise. Monitor labs as needed. Continue Crestor Assessment & Plan (07/22/2022 1:49 PM MAINTENANCE SUPERVISOR 2ND SHIFT): Encouraged patient to follow low fat/low chol diet like the Mediterranean diet. Increase good fats in the diet. Increase exercise. Monitor labs as needed. Continue Crestor Assessment & Plan (08/23/2021 9:42 PM MAINTENANCE SUPERVISOR 2ND SHIFT): Encouraged patient to follow fat/low chol diet [...] 12/04/2018 Assessment & Plan (06/11/2024 12:15 PM MAINTENANCE SUPERVISOR 2ND SHIFT): Encouraged smoking cessation. Discussed 3 minutes. Reviewed options for assistance with cessation. Reviewed detention sequela associated with smoking. Pt declines assistance at this time but may contact the office at anytime for further help as they desire. Assessment & Plan (03/18/2024 8:05 PM CDT): Encouraged smoking cessation. Discussed 3 minutes. Reviewed options for assistance with cessation. Reviewed roofing supervisor sequela associated with smoking. Pt declines assistance at this time but may contact the office at anytime for further help as they desire. Declines low-dose CT at this point Assessment & Plan (09/07/2023 10:30 PM MAINTENANCE SUPERVISOR 2ND SHIFT): Encouraged smoking cessation. Discussed 3 minutes. Reviewed options for assistance with cessation. Reviewed roofing supervisor sequela associated with smoking. Pt declines assistance at this time but may contact the office at anytime for further help as they desire. Assessment & Plan (07/22/2022 1:47 PM MAINTENANCE SUPERVISOR 2ND SHIFT): Encouraged smoking cessation. Discussed 3 minutes. Reviewed options for assistance with cessation. Reviewed detention sequela associated with smoking. Pt declines assistance at this time but may contact the office at anytime for further help as they desire. Assessment & Plan (08/23/2021 9:42 PM MAINTENANCE SUPERVISOR 2ND SHIFT): Encouraged smoking cessation. Discussed 3 minutes. Reviewed options for assistance with cessation. Reviewed detention sequela associated with smoking. Pt declines assistance at this time but may contact the office at anytime for further help as they desire. Assessment & Plan (04/08/2021 2:56 PM CDT): Encouraged smoking cessation. Discussed 3 minutes. Reviewed options for assistance with cessation. Reviewed detention sequela associated with smoking. Pt declines assistance at this time but may contact the office at anytime for further help as they desire. Assessment & Plan (01/18/2021 11:39 PM CDT): Encouraged smoking cessation. Discussed 3 minutes. Reviewed options for assistance with cessation. Reviewed detention sequela associated with smoking. Pt declines assistance at this time but may contact the office at anytime for further help as they desire. Assessment & Plan (09/26/2020 8:30 PM CDT): Encouraged smoking cessation. Discussed 3 minutes. Reviewed options for assistance with cessation. Reviewed roofing supervisor sequela associated with smoking. Pt declines assistance at this time but may contact the office at anytime for further help as they desire. Assessment & Plan (06/14/2020 5:55 PM MAINTENANCE SUPERVISOR 2ND SHIFT): Encouraged smoking cessation. Discussed 3 minutes. Reviewed options for assistance with cessation. Reviewed detention sequela associated with smoking. Pt declines assistance at this time but may contact the office at anytime for further help as they desire. Assessment & Plan (03/15/2020 11:10 AM CDT): Encouraged smoking cessation. Discussed 3 minutes. Reviewed options for assistance with cessation. Reviewed detention sequela associated with smoking. Pt declines assistance [...] Reviewed options for assistance with cessation. Reviewed roofing supervisor sequela associated with smoking. Pt declines assistance at this time but may contact the office at anytime for further help as they desire. Assessment & Plan (06/17/2019 6:16 PM MAINTENANCE SUPERVISOR 2ND SHIFT): Encouraged smoking cessation. Discussed 3 minutes. Reviewed options for assistance with cessation. Reviewed detention sequela associated with smoking. Pt declines assistance at this time but may contact the office at anytime for further help as they desire. Assessment & Plan (01/30/2019 1:03 PM CDT): Encouraged smoking cessation. Discussed approx 3 minutes. Gastroesophageal reflux disease without esophagi tis 12/04/2018 Assessment & Plan (06/11/2024 12:15 PM MAINTENANCE SUPERVISOR 2ND SHIFT): Continue PPI Assessment & Plan (03/18/2024 8:05 PM CDT): Patient has been following closely with Dr. Guerin GI. She transferred and saw Dr. Nath and had an EGD done. States at this point her symptoms are pretty stable so will just continue to monitor continuing the Bentyl as needed and continue PPI p.r.n. Assessment & Plan (05/21/2023 3:44 PM MAINTENANCE SUPERVISOR 2ND SHIFT): Continue PPI p.r.n.. Continue per GI Assessment & Plan (07/22/2022 1:47 PM MAINTENANCE SUPERVISOR 2ND SHIFT): Continue per Dr. Guerin. She is currentl on omeprazole sucralfate. Will await his recommendations Assessment & Plan (08/23/2021 9:42 PM MAINTENANCE SUPERVISOR 2ND SHIFT): Continue PPI. She is unsure if the Dexilant will continue to be covered by her insurance so she will contact us with the letter she has at home with her options. Assessment & Plan (04/08/2021 2:55 PM CDT): Increased reflux symptoms. She is currently on Dexilant. Encouraged to continue with the same regimen. Will refer her to GI Dr. Zamora at [facility] she is due for colonoscopy and may [...] 12/04/2018 Assessment & Plan (06/11/2024 12:15 PM MAINTENANCE SUPERVISOR 2ND SHIFT): Supplement Assessment & Plan (03/18/2024 8:06 PM CDT): Supplement Assessment & Plan (09/07/2023 10:30 PM MAINTENANCE SUPERVISOR 2ND SHIFT): Supplement Assessment & Plan (05/21/2023 3:44 PM MAINTENANCE SUPERVISOR 2ND SHIFT): Supplement Assessment & Plan (07/22/2022 1:47 PM MAINTENANCE SUPERVISOR 2ND SHIFT): Supplement Assessment & Plan (09/26/2020 8:14 PM CDT): supplement Assessment & Plan (09/11/2019 9:18 AM CDT): supplement Assessment & Plan (01/30/2019 1:02 PM CDT): supplement COPD (chronic obstructive pulmonary disease) 09/2018 Assessment & Plan (08/13/2024 1:18 PM MAINTENANCE SUPERVISOR 2ND SHIFT): Continue with albuterol and Breo as breathing is stable Assessment & Plan (06/11/2024 12:15 PM MAINTENANCE SUPERVISOR 2ND SHIFT): Encouraged complete smoking cessation. Continue Breo and albuterol as needed Assessment & Plan (03/18/2024 8:06 PM CDT): Encouraged complete smoking cessation. Continue albuterol nebs and Breo as needed. Assessment & Plan (09/07/2023 10:30 PM MAINTENANCE SUPERVISOR 2ND SHIFT): Patient with COPD. Continue with albuterol and Breo. Assessment & Plan (05/21/2023 3:44 PM MAINTENANCE SUPERVISOR 2ND SHIFT): Continue Symbicort and albuterol p.r.n. continue Flonase Assessment & Plan (07/22/2022 1:47 PM MAINTENANCE SUPERVISOR 2ND SHIFT): Stressed smoking cessation. Continue Symbicort albuterol inhaler nebulizer p.r.n. Assessment & Plan (07/27/2021 7:15 AM MAINTENANCE SUPERVISOR 2ND SHIFT): Continues Symbicort/prn albuterol Still requires Neb Albuterol [...] basis as instructed. New prescription sent to [facility]. [id number] completed today Assessment & Plan (09/26/2020 8:14 PM CDT): Continue Symbicort and Albuterol prn Assessment & Plan (03/15/2020 11:10 AM CDT): Continue current regimen. Stop smoking Assessment & Plan (09/11/2019 9:18 AM CDT): STOP smoking. Continue with current regimen inhalers Albuterol/Symbicort Assessment & Plan (01/30/2019 12:54 PM CDT): Continue with Symbicort SHERRY (obstructive sleep apnea) 12/02/2018 Assessment & Plan (06/11/2024 11:43 AM MAINTENANCE SUPERVISOR 2ND SHIFT): Patient has established with Dr. Manuel. She had her sleep study test that did confirm sleep apnea. Awaiting the titration study Assessment & Plan (03/18/2024 8:03 PM CDT): Patient was diagnosed with sleep apnea at [facility] with Dr. Joseph. She would not wear the mask so sent the machine back. Has been untreated for many years. Continues to snore and have daytime sleepiness. Strongly encouraged re- evaluation. Willing to see Dr. Manuel at [facility]. Referral placed Assessment & Plan (09/07/2023 10:30 PM MAINTENANCE SUPERVISOR 2ND SHIFT): Continue with CPAP Assessment & Plan (07/22/2022 1:36 PM MAINTENANCE SUPERVISOR 2ND SHIFT): Continue CPAP Assessment & Plan (04/08/2021 2:56 [...] 12/02/2018 Assessment & Plan (08/13/2024 1:17 PM MAINTENANCE SUPERVISOR 2ND SHIFT): Continue to follow with [facility]. She stopped her clonazepam couple [...] acutely. Assessment & Plan (06/11/2024 11:43 AM MAINTENANCE SUPERVISOR 2ND SHIFT): Continue per psychiatrist. She continues to take out her medications and they are updated on her chart Assessment & Plan (03/18/2024 8:04 PM CDT): Continue following with her psychiatrist for management of her mental health concerns. Assessment & Plan (09/07/2023 10:30 PM MAINTENANCE SUPERVISOR 2ND SHIFT): Continue per Psychiatry. Current medications include Klonopin Ingrezza Lexapro Vraylar 6 mg Lamictal and lithium Assessment & Plan (05/21/2023 3:45 PM MAINTENANCE SUPERVISOR 2ND SHIFT): Continue per psychiatrist Assessment & Plan (07/22/2022 1:45 PM MAINTENANCE SUPERVISOR 2ND SHIFT): Continue per psychiatrist. Patient states she is on clonazepam, latuda, Hydroxyzine, Cymbalta and Lexapro Assessment & Plan (08/23/2021 9:42 PM MAINTENANCE SUPERVISOR 2ND SHIFT): Per psychiatrist Assessment & Plan (04/08/2021 2:58 PM CDT): Continue per Psychiatry Assessment & Plan (06/14/2020 5:56 PM MAINTENANCE SUPERVISOR 2ND SHIFT): Unsure of exact diagnosis. Medication/treatment plan is [...] 03/17/2024 Assessment & Plan (09/07/2023 10:31 PM MAINTENANCE SUPERVISOR 2ND SHIFT): Encouraged healthy lifestyle, good nutrition and exercise. Encouraged Calcium and Vitamin D and weight bearing exercise for bone health. Reviewed immunizations. Reviewed age appropirate screenings. Medicare Wellness Documentation is completed within the chart BMI 38.0-38.9,adult 05/21/2023 09/07/19 24 Assessment & Plan (05/21/2023 3:46 PM MAINTENANCE SUPERVISOR 2ND SHIFT): Discussed the patient's BMI. The BMI is above average. BMI management plan is completed. BMI Follow-up includes: nutrition counseling, exercise counseling and education provided. BMI 39.0-39.9,adult 07/22/2022 05/04/20 23 Assessment & Plan (07/22/2022 1:48 PM MAINTENANCE SUPERVISOR 2ND SHIFT): Discussed the patient's BMI. The BMI is above average. BMI management plan is completed. BMI Follow-up includes: nutrition counseling, exercise counseling and education provided. Need for vaccination 07/22/2022 024 Assessment & Plan (05/21/2023 3:46 PM MAINTENANCE SUPERVISOR 2ND SHIFT): Flu vaccine updated in the office Assessment & Plan (07/22/2022 1:48 PM MAINTENANCE SUPERVISOR 2ND SHIFT): Flu vaccine at the office today Encounter for screening mamm ogram for malignant neoplasm of breast 07/22/2022 09/07/2023 Assessment & Plan (07/22/2022 1:48 PM MAINTENANCE SUPERVISOR 2ND SHIFT): Mammogram order provided Bloody diarrhea 04/08/2021 09/07/2023 [...] 09/07/2023 Assessment & Plan (07/22/2022 1:48 PM MAINTENANCE SUPERVISOR 2ND SHIFT): Encouraged healthy lifestyle, good nutrition and exercise. [...] She was due to repeat colonoscopy in 2016. Prefers to see a provider at [facility]. She is also having burning [...] 01/14/20212022 Assessment & Plan (08/23/2021 9:43 PM MAINTENANCE SUPERVISOR 2ND SHIFT): Obesity is unchanged. Discussed the patient's BMI. [...] and education provided. BMI 36.0-36.9,adult 01/14/2021 07/22/19 Assessment & Plan (07/27/2021 7:21 AM MAINTENANCE SUPERVISOR 2ND SHIFT): Obesity is unchanged. Discussed the patient's BMI. [...] onset of sxs. Check COVID test thru [facility] collection site in [place]. Treat sxs with Tylenol, Cough/cold medication otc [...] water often. If needed, use a hand practice nurse that contains at least 60% alcohol. Clean [...] 04/08/2021 Assessment & Plan (07/22/2020 11:47 AM MAINTENANCE SUPERVISOR 2ND SHIFT): Declines covid 19 testing at this time. Will start on ceftin 500mg bid x 7 days. She was advised to report to office if having otorrhea or worsening of symptoms. Need for immunization against influenza 06/14/2020 02/17/2021 Assessment & Plan (06/14/2020 5:57 PM MAINTENANCE SUPERVISOR 2ND SHIFT): Updated in office today BMI 37.0-37.9, adult 06/10/2020 024 Assessment & Plan (09/07/2023 10:31 PM MAINTENANCE SUPERVISOR 2ND SHIFT): Discussed the patient's BMI. The BMI is above average. BMI management plan is completed. BMI Follow-up includes: nutrition counseling, exercise counseling and education provided. Assessment & Plan (06/10/2020 1:35 PM MAINTENANCE SUPERVISOR 2ND SHIFT): Obesity is unchanged. Discussed the patient's BMI. The BMI is above average. BMI management plan is completed. BMI Follow-up includes: nutrition counseling, exercise counseling and education provided.Obesity is unchanged. Discussed the patient's BMI. BMI 35.0-35.9,adult 03/15/2020 06/10/20 20 Acute lateral [...] 03/17/2024 Assessment & Plan (09/07/2023 10:30 PM MAINTENANCE SUPERVISOR 2ND SHIFT): Probably multifactorial. Check labs and followup to re-evaluate Assessment & Plan (09/11/2019 9:21 AM CDT): Probably multifactorial. Check labs and followup to re-evaluate Hyperglycemia 09/11/2019 03/06/2024 Assessment & Plan (09/07/2023 10:30 PM MAINTENANCE SUPERVISOR 2ND SHIFT): Pre-diabetes/hyperglycemia is a precursor to Dm. Stressed [...] 07/22/2022 Left knee pain 10/27/2015 04/08/2021 Immunizations Immunization Administration Dates Next Due Influenza, [...] on file Legal Sex Female 4:54 AM MAINTENANCE SUPERVISOR 2ND SHIFT Gender Identity Not on file Sexual Orientation Not on file Occupation Industry Job Start Date Job End Date Disabled Not on file Not on file Not on file Last Filed Vital Signs Vital Sign Reading Time Taken Comments Blood Pressure 164/86 08/15/2024 10:04 AM MAINTENANCE SUPERVISOR 2ND SHIFT Pulse 85 08/15/2024 10:04 AM MAINTENANCE SUPERVISOR 2ND SHIFT Temperature 36.3 C (97.4 F) 08/15/2024 10:04 AM MAINTENANCE SUPERVISOR 2ND SHIFT Respiratory Rate 18 05/18/2024 9:37 AM MAINTENANCE SUPERVISOR 2ND SHIFT Oxygen Saturation 97% 08/15/2024 10:04 AM MAINTENANCE SUPERVISOR 2ND SHIFT Inhaled Oxygen Concentration - - Weight 105 kg (231 lb 6.4 oz) 08/15/2024 10:04 A M MAINTENANCE SUPERVISOR 2ND SHIFT Height 154.9 cm (5' 1 ) 08/15/2024 10:04 AM MAINTENANCE SUPERVISOR 2ND SHIFT Body Mass Index 43.72 08/15/2024 10:04 AM MAINTENANCE SUPERVISOR 2ND SHIFT Plan of Treatment Not on file Procedures Procedure Name Priority Date/Time Associated Diagnosis Comments ECG 12-LEAD Routine 08/15/2024 10:46 AM MAINTENANCE SUPERVISOR 2ND SHIFT Elevated blood pressure reading SCREENING MAMMOGRAM BILATERAL W ALBERTO Schedule Routine, Read Routine (OP Routine) 08/08/2024 2:15 PM MAINTENANCE SUPERVISOR 2ND SHIFT Breast cancer screening by mammogram VITAMIN D 25 HYDROXY Routine 06/01/2024 7:12 AM MAINTENANCE SUPERVISOR 2ND SHIFT Vitamin D deficiency ALBUMIN CREATININE RATIO, URINE Routine 06/01/2024 7:12 AM MAINTENANCE SUPERVISOR 2ND SHIFT Type 2 diabetes mellitus with hyperlipidemia (HCC) COMPREHENSIVE METABOLIC PANEL Routine 06/01/2024 7:11 AM MAINTENANCE SUPERVISOR 2ND SHIFT Type 2 diabetes mellitus with hyperlipidemia (HCC) LIPID PANEL Routine 06/01/2024 7:11 AM MAINTENANCE SUPERVISOR 2ND SHIFT Hyperlipidemia, unspecified hyperlipidemia type HEMOGLOBIN A1C Routine 06/01/2024 7:11 AM MAINTENANCE SUPERVISOR 2ND SHIFT Type 2 diabetes mellitus with hyperlipidemia (HCC) TSH Routine 06/01/2024 7:11 AM MAINTENANCE SUPERVISOR 2ND SHIFT Elevated TSH Hyperthyroidism HM COLONOSCOPY Routine 05/26/2021 THINPREP HUSBANDRY PERSON PAP (IMAGE GUIDED) LIQUID-BASED PREP Routine 08/03/2017 12:16 PM MAINTENANCE SUPERVISOR 2ND SHIFT from Last 3 Months or Most Recently Relevant to Health Maintenance Results * ECG 12 lead (08/15/2024 10:46 AM MAINTENANCE SUPERVISOR 2ND SHIFT) us Inez VELASCO ECG ORDERABLES Final Resu lt * Screening Mammogram Bilateral W Alberto (08/08/2024 2:15 PM MAINTENANCE SUPERVISOR 2ND SHIFT) Anatomical Region Laterality Modality Breast Bilateral Mammography Impressions 08/08/2024 2:15 PM MAINTENANCE SUPERVISOR 2ND SHIFT 1.No mammographic evidence of malignancy 2.Routine screening recommended for 1 year BI-RADS Category 1 Negative us Inez VELASCO IMG MAMMO PROCEDURES Final Result * Albumin Creatinine Ratio, Urine (06/01/2024 7:12 AM MAINTENANCE SUPERVISOR 2ND SHIFT) Creatinine, ur 42 20 - 275 mg/dL [...] a diagnostic category. Urine 06/01/2024 7:12 AM MAINTENANCE SUPERVISOR 2ND SHIFT 06/01/2024 7:13 AM MAINTENANCE SUPERVISOR 2ND SHIFT Inez VELASCO LAB URINE ORDERABLES Final Result Performing Organization Address [facility] Co de Phone Number [facility] [address] [place] [address] * Vitamin D 25 hydroxy (06/01/2024 7:12 AM MAINTENANCE SUPERVISOR 2ND SHIFT) Vitamin D 25-OH 37 30 - 100 ng/mL [facility] Comment: Vitamin D Status 25-OH Vitamin D: Deficiency: <20 ng/mL Insufficiency: 20 - 29 ng/mL Optimal: > or = 30 ng/mL For 25-OH Vitamin D testing on patients on D2-supplementation and patients for whom quantitation of D2 and D3 fractions is required, the QuestAssureD(TM) 25-OH VIT D, (D2,D3), LC/MS/MS is recommended: order code 14211 (patients >2yrs). See Note 1 Note 1 For additional information, please refer to http://education.HeartFlow/faq/SIS224 (This link is being provided for informational/ educational purposes only.) Blood 06/01/2024 7:12 AM MAINTENANCE SUPERVISOR 2ND SHIFT 06/01/2024 7:13 AM MAINTENANCE SUPERVISOR 2ND SHIFT Inez VELASCO LAB BLOOD ORDERABLES Final Result Performing Organization Address [facility] Co de Phone Number [facility] [address] [place] [address] * TSH (06/01/2024 7:11 AM MAINTENANCE SUPERVISOR 2ND SHIFT) Pathologist [facility] TSH 2.15 mIU/L [facility] Comment: Reference Range > or = 20 Years 0.40-4.50 Ranges First trimester 0.26-2.66 Second trimester 0.55-2.73 Third trimester 0.43-2.91 Blood 06/01/2024 7:11 AM MAINTENANCE SUPERVISOR 2ND SHIFT 06/01/2024 7:11 AM MAINTENANCE SUPERVISOR 2ND SHIFT Narrative [facility] - 06/01/2024 9:56 PM MAINTENANCE SUPERVISOR 2ND SHIFT FASTING:YES FASTING: YES Inez VELASCO LAB BLOOD ORDERABLES Final Result Performing Organization Address [facility] Co de Phone Number [facility] [address] [place] [address] * (ABNORMAL) Hemoglobin A1c (06/01/2024 7:11 AM MAINTENANCE SUPERVISOR 2ND SHIFT) Pathologist [facility] Hgb A1C 5.9(H) <5.7 % of total Hgb Estella [facility] shukri Jackson Comment: For someone without known [...] diabetes for children. Blood 06/01/2024 7:11 AM MAINTENANCE SUPERVISOR 2ND SHIFT 06/01/2024 7:11 AM MAINTENANCE SUPERVISOR 2ND SHIFT Narrative [facility] - 06/01/2024 9:56 PM MAINTENANCE SUPERVISOR 2ND SHIFT FASTING:YES FASTING: YES Inez VELASCO LAB BLOOD ORDERABLES Final Result Performing Organization Address [facility] Co de Phone Number [facility] [address] [place] [address] * (ABNORMAL) Lipid panel (06/01/2024 7:11 AM MAINTENANCE SUPERVISOR 2ND SHIFT) Cholesterol 142 <200 mg/dL [facility]uk[facility] HDL 47(L) > OR = 50 mg/dL [facility] Triglycerides 124 <150 mg/dL Estella [facility] shukri Jackson LDL 74 mg/dL (calc) [facility] shukri Jackson Comment: Reference range: <100 Desirable range <100 mg/dL for primary prevention; <70 mg/dL for patients with CHD or diabetic patients with > or = 2 CHD risk factors. LDL-C is now calculated using the Crystal calculation, which is a validated novel method providing better accuracy than the Friedewald equation in the estimation of LDL-C. Arley COSTA et al. FRANKY. 2013;310(19): 5335-7389 (http://education.HeartFlow/faq/VXN643) Chol/HDL ratio 3.0 <5.0 (calc) Estella Jackson Non-HDL, (LDL+VLDL) 95 <130 mg/dL (calc) Estella dilitronicsYessenia Jackson Comment: For patients with diabetes plus 1 major ASCVD risk factor, treating to a non-HDL-C goal of <100 mg/dL (LDL-C of <70 mg/dL) is considered a therapeutic option. Blood 06/01/2024 7:11 AM MAINTENANCE SUPERVISOR 2ND SHIFT 06/01/2024 7:11 AM MAINTENANCE SUPERVISOR 2ND SHIFT Narrative [facility] - 06/01/2024 9:56 PM MAINTENANCE SUPERVISOR 2ND SHIFT FASTING:YES FASTING: YES us Inez VELASCO LAB BLOOD ORDERABLES Final Result ESTELLA MirandaMelissa [address] [place] [address] * Comprehensive metabolic panel (06/01/2024 7:11 AM MAINTENANCE SUPERVISOR 2ND SHIFT) [facility] Glucose 98 65 - 99 mg/dL Estella Jackson Comment: Fasting reference interval BUN 11 7 - 25 mg/dL Estella Jackson Creatinine 0.75 0.50 - 1.03 mg/dL Estella Jackson eGFR 95 > OR = 60 mL/min/1.7 3m2 Estella Jackson BUN/creat ratio SEE NOTE: 6 - (calc) Estella Jackson Comment: Not Reported: BUN and Creatinine are within reference range. Sodium 136 135 - 146 mmol/L Estella Jackson Potassium, pl 4.3 3.5 - 5.3 mmol/L Estella Jackson Chloride 102 98 - 110 mmol/L Estella Jackson CO2 26 20 - 32 mmol/L Estella Galvan-Emerson Jackson Calcium 9.5 8.6 - 10.4 mg/dL Estella Galvan-Emerson Jackson Protein, sr 6.8 6.1 - 8.1 g/dL Estella Galvan-Emerson Jackson Albumin 4.6 3.6 - 5.1 g/dL Estella Galvan-Emerson Jackson GLOBULIN 2.2 1.9 - 3.7 g/dL (calc) Estella Galvan-Emerson Jackson Alb/glob ratio 2.1 1.0 - 2.5 (calc) Estella Galvan-Emerson Jackson Bilirubin, total 0.6 0.2 - 1.2 mg/dL Estella Galvan-Emerson Jackson Alk phos 69 37 - 153 U/L Estella Galvan-Emerson Jackson AST 24 10 - 35 U/L Estella Galvan-Emerson Jackson ALT (SGPT) 21 6 - 29 U/L Estella Galvan-Emerson Jackson Blood 06/01/2024 7:11 AM MAINTENANCE SUPERVISOR 2ND SHIFT 06/01/2024 7:11 AM MAINTENANCE SUPERVISOR 2ND SHIFT Narrative [facility] - 06/01/2024 9:56 PM MAINTENANCE SUPERVISOR 2ND SHIFT FASTING:YES FASTING: YES Inez VELASCO LAB BLOOD ORDERABLES Final Result ESTELLA [facility] Hospital[facility] [address] [place] [address] * (ABNORMAL) COLONOSCOPY (05/26/2021) Historical Provider HEALTH MAINTENANCE Edited Result - Final * ThinPrep Gynecologic Pap Test (Image-guided), Liquid-based Preparation (08/03/2017 12:16 PM MAINTENANCE SUPERVISOR 2ND SHIFT) CLINICAL INFORMATION [facility] HISTORICAL RESULTS Comment:Information not prov ided LMP: 07/19 [facility] HISTORICAL RESULTS PREV. PAP: [facility] HISTORICAL RESULTS Comment:MANY YEARS AGO PREV. BX: [facility] HISTORICAL RESULTS Comment:INFORMATION NOT PROV IDED SOURCE: [facility] HISTORICAL RESULTS Comment:Cervix, Endocervix STATEMENT OF ADEQUACY: [facility] HISTORICAL RESULTS Comment: Satisfactory for evaluation. Endocervical/transformation zone component present. INTERPRETATION/RESU LT: [facility] HISTORICAL RESULTS Comment:Negative for intraep ithelial lesion or malignancy. COMMENT: [facility] HISTORICAL RESULTS Comment: This Pap test has been evaluated with computer assisted technology. [employer] MEMBER: [facility] - [facility] HISTORICAL RESULTS Comment: YQ, CT(ASCP) CT screening location: [place] [address] [address] [place] [address] 08/03/2017 12:1 6 PM MAINTENANCE SUPERVISOR 2ND SHIFT 08/09/2017 8:55 PM MAINTENANCE SUPERVISOR 2ND SHIFT Narrative [facility] HISTORICAL RESULTS - 08/09/2017 8:41 PM MAINTENANCE SUPERVISOR 2ND SHIFT 0 PERFORMING LAB: [place], [facility] [place] [address] [facility] [address] Mahi Mcmahon MD us Historical Provider LAB PATHOLOGY ORDERABLES Final Result [facility] HISTORICAL RESULTS from Last 3 Months or Most Recently Relevant to Health Maintenance Insurance IDMD MEDICARE [facility] Address: [address] [address] [place] [address] IDPA MEDICARE [facility] MEDIC[facility] Address: [address] [address] [place] [address] Advance Directives For more information, please contact: [phone] * Full Code (Latest Code Status on File) Date Activated Date Inactivated Comments 05/29/2022 12:59 PM 05/30/2022 2:26 PM * Full Code Date Activated Date Inactivated Comments 05/28/2022 7:20 PM 05/29/2022 12:59 PM Care Teams Logistics Account Manager Relationship Specialty Start Date End Date Inez New PA [address] [place] [address] PCP - General 09/14/17 Candido Guerin MD [address] [place] [address] Consulting Physician Gastroenterology 05/04/23
--- OUTSIDE RECORDS SUMMARY | 2024-08-24 00:15 | XMS_ITS | Encounter Summary ---
Author Organization [facility] Healthcare Address [address] [place] [address] Care Team Providers Care Huc Ob Name Role Phone Inez New Primary Care Provider [phone] Candido Guerin MD Unavailable [phone] Encounter Details Date Type Department Care Team (Late Contact Info) Description 11/29/2023 Orders Only [facility] Health Information Management [address] [place] [address] Scanning, Provider Social History Tobacco Use [...] on file Legal Sex Female 4:54 AM COUPON COLLECTION CLERK Gender Identity Not on file Sexual Orientation [...] on filedocumented in this encounter Care Teams Huc Ob Relationship Specialty Start Date End Date Inez New PA [address] [place] [address] PCP - General 09/14/17 Candido Guerin MD [address] [place] [address] Consulting Physician Gastroenterology 05/04/23 documented as of this encounter
--- OUTSIDE RECORDS SUMMARY | 2024-08-24 00:15 | XMS_ITS | Clinical Summary ---
Author Organization [facility] Address [address] [place] [address] Care Team Providers Care Internet Marketing Strategist Name Role Phone Inez New Primary Care Provider [phone] Allergies No known active allergies Medications rosuvastatin [...] Comments Blood Pressure 137/86 05/26/2021 6:55 AM AQUACULTURE WORKER Pulse 69 05/26/2021 6:55 AM AQUACULTURE WORKER Temperature 36.1 C (96.9 F) 05/26/2021 6:32 AM AQUACULTURE WORKER Respiratory Rate 14 05/26/2021 6:55 AM AQUACULTURE WORKER Oxygen Saturation 96% 05/26/2021 6:55 AM AQUACULTURE WORKER Inhaled Oxygen Concentration - - Weight 101.6 kg (224 lb) 05/21/2021 4:14 PM AQUACULTURE WORKER Height 170.2 cm (5' 7 ) 05/21/2021 4:14 PM AQUACULTURE WORKER Body Mass Index 35.08 05/21/2021 4:14 PM AQUACULTURE WORKER Plan of Treatment Health Maintenance Due Date [...] Vaccines (1 of 2) 2021 COVID-19 Vaccine ( - 2023-2 5 season) 2024 11/25/2020, 10/30/2020 [...] Diagnosis Comments COLONOSCOPY Routine 05/26/2021 5:23 AM AQUACULTURE WORKER from Last 3 Months or Most Recently Relevant to Health Maintenance Insurance MEDICARE MEDICAID Care Teams Internet Marketing Strategist Relationship Specialty Start Date End Date Inez New PA [address] [place] [address] PCP - General PHYSICIAN SOCIAL WORK MSW 05/26/21
--- OUTSIDE RECORDS SUMMARY | 2024-08-24 00:15 | XMS_ITS | Encounter Summary ---
Author Organization [facility] Healthcare Address [address] [place] [address] Care Team Providers Care Gerontology Aide Name Role Phone Inez New Primary Care Provider [phone] Candido Guerin MD Unavailable [phone] Encounter Details Date Type Department Care Team (Late st Contact Info) Description 08/23/2024 Telephone [facility] Medical Group Family Medicine [address] [place] [address] Inez New PA [address] [place] [address] Social History Tobacco Use Types Packs/Day Years [...] on file Legal Sex Female 4:54 AM MACHINE GRINDER Gender Identity Not on file Sexual Orientation Not on file Occupation Industry Job Start Date Job End Date Disabled Not on file Not on file Not on file documented as of this encounter Ordered Prescriptions Prescription Sig Dispense Quantity Refills Last Filled Start Date End Date metFORMIN (GLUCOPHAGE) 500 mg tabletIndications:Ty pe 2 diabetes mellitus with hyperlipidemia (HCC) Take 1 tablet (500 mg total) by mouth daily with breakfast 90 tablet 2 08/23/2024 fluticasone furoate-vilanteroL (Breo Ellipta) 200-25 mcg/dose diskus inhalerIndications:C hronic obstructive pulmonary disease, unspecified COPD type (HCC) Inhale 1 puff daily Rinse mouth with water after use. Do not swallow. 90 each 1 08/23/2024 documented in this encounter Miscellaneous Notes * Telephone Encounter - Romy Hobbs LPN - 08/23/2024 8:21 AM MACHINE GRINDER Refill sent per pharmacy request. INE GRINDER documented in this encounter Plan of Treatment Not on file documented as of this encounter Visit Diagnoses Diagnosis Type 2 diabetes mellitus with hyperlipidemia (HCC)- Primary Chronic obstructive pulmonary disease, unspecified COPD type (HCC) documented in this encounter Discontinued Medications Medication Sig Discontinue Reason Start Date End Da te metFORMIN (GLUCOPHAGE) 500 mg tablet Take 1 tablet (500 mg total) by mouth daily with breakfast Reorder 06/11/2024 08/23/2024 fluticasone furoate-vilanteroL (Breo Ellipta) 200-25 mcg/dose diskus inhalerIndications:[employer] aliya obstructive pulmonary disease, unspecified COPD type (HCC) Inhale 1 puff daily Rinse mouth with water after use. Do not swallow. Reorder 07/25/2024 08/23/2024 documented as of this encounter Care Teams Gerontology Aide Relationship Specialty Start Date End Date Inez eNw PA [address] [place] [address] PCP - General 09/14/17 Candido Guerin MD [address] [place] [address] Consulting Physician Gastroenterology 05/04/23 documented as of this encounter
--- OUTSIDE RECORDS SUMMARY | 2024-08-24 00:15 | XMS_ITS | Encounter Summary ---
Author Organization [facility] Healthcare Address [address] [place] [address] Care Team Providers Care Lockstitch Collar Setter Name Role Phone Inez New Primary Care Provider [phone] Candido Guerin MD Unavailable [phone] Reason for Visit * Reason Onset Date Comments Medication Request 08/23/2024 Encounter Details Date Type Department Care Team (Late Contact Info) Description 08/23/2024 Telephone [facility] Medical Group Family Medicine [address] [place] [address] Inez New PA [address] [address] Medication Request Social History Tobacco Use Types Packs/Day Years [...] on file Legal Sex Female 4:54 AM SKOOG OPERATOR Gender Identity Not on file Sexual Orientation [...] daily with breakfast 90 tablet 2 08/23/2024 5 fluticasone furoate-vilanteroL (Breo Ellipta) 200-25 mcg/dose diskus inhalerIndications:C hronic obstructive pulmonary disease, unspecified COPD type (HCC) Inhale 1 puff daily Rinse mouth with water after use. Do not swallow. 90 each 1 08/23/2024 5 documented in this encounter Miscellaneous Notes * Addendum Note - Tramaine Mane - 08/23/2024 11:01 AM CSTAddended by: TRAMAINE MANE on: 08/23/2024 11:01 AM Modules accepted: Orders G OPERATOR * Telephone Encounter - Tramaine Mane - 08/23/2024 10:59 AM CST Prescription sent to wrong pharmacy Medication Name(s)/Dose: Pended Incorrect pharmacy prescription was sent to: [facility]- [address] Correct Pharmacy prescription should be sent to? On file Additional Comments: Caller advises that the [facility] is the wrong location. Please update deanna. Does message need to be routed? Yes-Action Needed G OPERATOR * Telephone Encounter - Romy Hobbs LPN - 08/23/2024 9:27 AM SKOOG OPERATOR Resent to correct pharmacy. G OPERATOR * Telephone Encounter - Ronna Raymond - 08/23/2024 9:14 AM CST Prescription sent to wrong pharmacy Medication Name(s)/Dose: fluticasone furoate-vilanteroL (Breo Ellipta) 200-25 mcg/dose diskus inhaler metFORMIN (GLUCOPHAGE) 500 mg tablet [[id number]] Incorrect pharmacy prescription was sent to: [facility]/pharmacy [address] [place] [address] Correct Pharmacy prescription should be sent to? [place] [address] Additional Comments: n/a Does message need to be routed? Yes-Action Needed G OPERATOR * Telephone Encounter - Ronna Raymond - 08/23/2024 9:02 AM CST Prescription sent to wrong pharmacy Medication Name(s)/Dose: fluticasone furoate-vilanteroL (Breo Ellipta) 200-25 mcg/dose diskus inhaler metFORMIN (GLUCOPHAGE) 500 mg tablet [[id number]] Incorrect pharmacy prescription was sent to: [facility]/pharmacy [id number] [place] [address] Correct Pharmacy prescription should be sent to? [place] [address] Additional Comments: n/a Does message need to be routed? Yes-Action Needed G OPERATOR documented in this encounter Plan of Treatment Not on file documented as of this encounter Visit Diagnoses Diagnosis Chronic obstructive pulmonary disease, unspecified COPD type (HCC) Type 2 diabetes mellitus with hyperlipidemia (HCC) documented in this encounter Discontinued Medications Medication Sig Discontinue Reason Start Date End Da te fluticasone furoate-vilanteroL (Breo Ellipta) 200-25 mcg/dose diskus inhalerIndications:Chroni c obstructive pulmonary disease, unspecified COPD type (HCC) Inhale 1 puff daily Rinse mouth with water after use. Do not swallow. Reorder 08/23/2024 08/23/2024 metFORMIN (GLUCOPHAGE) 500 mg tabletIndications:Type 2 diabetes mellitus with hyperlipidemia (HCC) Take 1 tablet (500 mg total) by mouth daily with breakfast Reorder 08/23/2024 08/23/2024 documented as of this encounter Care Teams Lockstitch Collar Setter Relationship Specialty Start Date End Date Inez New PA [address] [place] [address] PCP - General 09/14/17 Candido Guerin MD [address] [place] [address] Consulting Physician Gastroenterology 05/04/23 documented as of this encounter
--- OUTSIDE RECORDS SUMMARY | 2024-08-24 00:15 | XMS_ITS | Encounter Summary ---
Author Organization [facility] Healthcare Address [address] [place] [address] Care Team Providers Care Traveling Phlebotomist Name Role Phone Inez New Primary Care Provider [phone] Candido Guerin MD Unavailable [phone] Encounter Details Date Type Department Care Team (Late st Contact Info) Description 08/23/2024 Telephone [facility] Family Medicine [address] [place] [address] Inez New PA [address] [place] [address] Social History Tobacco Use Types [...] on file Legal Sex Female 4:54 AM COUNTY DEMONSTRATOR Gender Identity Not on file Sexual Orientation [...] Encounter - Romy Hobbs LPN - 08/23/2024 11:24 AM COUNTY DEMONSTRATOR Sent to different pharmacy per pt request. TY DEMONSTRATOR documented in this encounter Plan of Treatment [...] documented as of this encounter Care Teams Traveling Phlebotomist Relationship Specialty Start Date End Date Ienz New PA [address] [place] [address] PCP - General 09/14/17 Candido Guerin MD [address] [place] [address] Consulting Physician Gastroenterology 05/04/23 documented as of this encounter
--- OUTSIDE RECORDS SUMMARY | 2024-08-24 00:15 | XMS_ITS | Encounter Summary ---
Author Organization [facility] Facility Care Team Providers Care Kiln Pusher Name Role Phone Inez New Primary Care Provider [phone] Candido Guerin MD Unavailable [phone] Encounter Details Date Type Department Care Team (Latest Contact Info) Description 10/01/2016 Orders Only [facility] CLINCONV ProviderVishal MD [address] [place] [address] Social History Tobacco Use Types Packs/Day Years Used Date Smoking Tobacco: Never Assessed Comments Unknown Sex and Gender Information Value Date Recorded Sex Assigned at Not on file Legal Sex Female 4:54 AM OUTREACH CLINICIAN Gender Identity Not on file Sexual Orientation [...] documented as of this encounter Care Teams Kiln Pusher Relationship Specialty Start Date End Date Inez New PA [address] [place] [address] PCP - General 09/14/17 Candido Guerin MD [address] [place] [address] Consulting Physician Gastroenterology 05/04/23 documented as of this encounter
--- OUTSIDE RECORDS SUMMARY | 2024-08-24 00:15 | XMS_ITS ---
Author Organization [facility] Mobile Action [facility] Address [facility] [address] Care Team Providers Care Saw Grinder Name Role Phone Rachell New PA-C Primary Care Provider Unav Kacy Hunt Unavailable [phone] REASON FOR VISIT N/S therapy Social History Sex Assigned At : Social History Observation Description Sex Assigned At Female Encounters Encounter Location Date Provider Diagnosis [facility] [employer] [place] [id number] [address] 08/23/2024 Kacy Marroquin Plan Of Treatment Next Appt Details Provider Name:Kacy sosa, 08/24/2024 09:45:00 AM, [address], [address], [address], Provider Name:Ale Nelson, 09/03/2024 08:00:00 AM, [address] [facility], [address], [address], Provider Name:Ale Nelson, 10/15/2024 09:00:00 AM, [address], [address], [address], Provider Name:Ale Nelson, 11/16/2024 08:00:00 AM, [address], [address], [address], Provider Name:Ale Nelson, 12/20/2024 08:00:00 AM, [address], [facility] [address], [place], [address], Progress Notes * KEESHA RUCKERB:1970 ( 54 yo F)Acc No.[id number]:08/23/2024 Patient: JEREMIAH MERCADO :1970 A ge:54 Y S ex:Female Address:[address] [place] [address] * true * Date: Generated for Verna callahan/Katia/eTransmitting on: 0 08/24/2024 12:15 AM 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
--- OUTSIDE RECORDS SUMMARY | 2024-08-24 00:15 | XMS_ITS ---
Author Organization [facility] Healthcare [facility] Address [facility] [address] Care Team Providers Care Materials Branch Chief Name Role Phone Rachell New PA-C Primary Care Provider Unav Kacy Hunt Unavailable [phone] REASON FOR VISIT Need to c u Social History Sex Assigned At : Social History Observation Description Sex Assigned At Female Encounters Encounter Location Date Provider Diagnosis [facility] [employer] [place] [address] [address] 08/22/2024 Kacy Marroquin Plan Of Treatment Next Appt Details Provider Name:Kacy sosa, 08/24/2024 09:45:00 AM, [facility], [address], [address], Provider Name:Ale Nelson, 09/03/2024 08:00:00 AM, [address] [facility], [address], [address], Provider Name:Ale Nelson, 10/15/2024 09:00:00 AM, [address], [address], [address], Provider Name:Ale Nelson, 11/16/2024 08:00:00 AM, [address], [address], [address], Provider Name:Ale Nelson, 12/20/2024 08:00:00 AM, [address], [facility] [address], [place], [address], Progress Notes * KEESHA RUCKERB:1970 ( 54 yo F)Acc No.[id number]:08/22/2024 Patient: JEREMIAH MERCADO :1970 A ge:54 Y S ex:Female Address:[address] [place] [address] * true * Date: Generated for Verna callahan/Katia/eTransmitting on: 0 08/24/2024 12:15 AM 

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
[2024-08-24 12:50] VITALS: BP 130/76; PULSE 70; RESP 16; TEMP 36.1; O2SAT 100; BMI 35.6
[2024-08-24 13:05] LABS: BEDSIDEPREGUCG Negative (Negative)
[2024-08-24] MEDS: LACTATED RINGERS 1,000 ML 150 ML IV CONT (13:14)
[2024-08-24 13:15] LABS: Glucose Point of Care 107 mg/dl (65-105)
--- NOTE | 2024-08-24 14:16 | P.PNAN_ITS ---
Anes - Initial Pre Proc Eval Procedure: Operation Date: 08/24/24 14:00 Proposed Procedures p Esophagogastroduodenoscopy EGD - Cosme Jameson MD Date/Time: 08/24/24 14:16 Surgeon: Cosme Jameson MD Pre Op Diagnosis: GERD, Diaphragmatic hernia, Epigastric pain Patient Data Age: 54 Gender: F Height: 1.7 m Weight: 103.3 kg Last Vital Signs Temp 96.9 F L 08/24/24 12:50 Pulse 70 08/24/24 12:50 Resp 16 08/24/24 12:50 BP 130/76 08/24/24 12:50 Pulse Ox 100 08/24/24 12:50 O2 Del Method Room Air 08/24/24 12:50 Allergies Allergy/AdvReac Type Severity Reaction Status Date / Time No Known Allergies Allergy Unknown Verified 08/24/24 12:58 Home Medications ?Medication ?Instructions ?Recorded ?Confirmed ?Type albuterol sulfate 90 mcg/actuation 1 puff inhalation DIRECTED 11/22/19 08/24/24 History aerosol inhaler (Ventolin HFA) escitalopram oxalate 5 mg tablet 5 mg PO DIRECTED 11/22/19 08/24/24 History lamotrigine 150 mg tablet 150 mg PO DIRECTED 11/22/19 08/24/24 History meclizine 12.5 mg tablet 12.5 mg PO DIRECTED 11/22/19 08/24/24 History rosuvastatin 10 mg tablet 10 mg PO DIRECTED 11/22/19 08/20/24 History albuterol sulfate 2.5 mg/0.5 mL 5 mg inhalation Q6H PRN shortness 10/17/20 08/20/24 Rx solution for nebulization of breath or wheezing #30 ea fluticasone furoate 200 1 inh inhalation DIRECTED 11/23/23 08/24/24 History mcg-vilanterol 25 mcg/dose inhalation powder (Breo Ellipta) omeprazole 40 mg capsule,delayed 40 mg PO BIDAC #60 caps 12/02/23 08/24/24 Rx release brexpiprazole 1 mg tablet (Rexulti) 1 mg PO DAILY 08/02/24 08/24/24 History lisinopril 20 mg tablet 20 mg PO DAILY 08/20/24 08/24/24 History propranolol 10 mg tablet mg PO DAILY 08/20/24 History Laboratory Tests 08/24/24 08/24/24 12:50 13:07 POC Capillary Glucose 107 H mg/dl (65-105) POC Urine HCG, Qual Negative (Negative) Patient hx anesthesia problems: none Family hx anesthesia problems: none Results Review: All pre-operative results and documents have been reviewed as part of the pre- operative evaluation. PMFSH Past Medical History Medical History COPD (chronic obstructive pulmonary disease) Bipolar disorder Family History Family History Mother Family history of cardiovascular disease Family history of malignant neoplasm of gastrointestinal tract Depression Sibling Hypertension Family history of coronary artery disease Social History Social History Years smoked: 30 Smoking status: Current every day smoker Tobacco type: cigarettes Alcohol intake: current Drinks per week: 6 Alcohol use details: states 6-10 daily but because shes on vacation Substance use: never Substance use type: does not use Do You Feel Safe in your Home?: Yes Lack of Transportation: No Lack of Food: Never True Current Housing: I Have Housing Concerned About Future Housing: No Difficulty Paying Gas/Electric Bills: No Difficulty Paying for Meds: No Currently Unemployed: Decline to Answer Education: High School Diploma/GED Difficulty w/ Childcare or Family Care: No Living arrangements: with family Gender identity (if verbalized by the patient): Female Spiritual care concerns: No Anes - Eval Final PreProcedure Day of Procedure 08/24/24 14:16 Patient weight: obese Lungs: normal air movement Airway: Mallampati scale class II Neurological: alert and oriented Last oral intake: >/= 8 hours ASA classification: III Emergent: no Anesthetic plan: proceed Anesthesia type and monitoring: general and standard monitoring Results Review: All pre-operative results and documents have been reviewed as part of the pre- operative evaluation. HTN, hyperlipidemia. Informed Consent: The patient's anesthetic plan and its attendant risks and benefits were discussed with the patient/family/POA. Questions were solicited and answers provided to the satisfaction of the patient/family/POA.
--- NOTE | 2024-08-24 14:24 | PM.IMHP ---
H&P: HPI History of Present Illness Date/Time: 08/24/24 14:24 Chief Complaint: Dysphagia-GERD Narrative: This patient has a longstanding history of GERD, and in November 2023 she had an EGD showing erosive esophagitis and the presence of a large hiatal hernia associated with the Schatzki ring. It was dilated up to 52 F with a Mendez dilator. . The patient endorses improvement after the procedure, however she is complaining of dysphagia again a recurrence of GERD. She is referred for EGD. Review of Systems Review of Systems: All systems reviewed & are unremarkable except as noted in HPI and below PMFSH Past Medical History Medical History COPD (chronic obstructive pulmonary disease) Bipolar disorder Family History Family History Mother Family history of cardiovascular disease Family history of malignant neoplasm of gastrointestinal tract Depression Sibling Hypertension Family history of coronary artery disease Social History Social History Years smoked: 30 Smoking status: Current every day smoker Tobacco type: cigarettes Alcohol intake: current Drinks per week: 6 Alcohol use details: states 6-10 daily but because shes on vacation Substance use: never Substance use type: does not use Do You Feel Safe in your Home?: Yes Lack of Transportation: No Lack of Food: Never True Current Housing: I Have Housing Concerned About Future Housing: No Difficulty Paying Gas/Electric Bills: No Difficulty Paying for Meds: No Currently Unemployed: Decline to Answer Education: High School Diploma/GED Difficulty w/ Childcare or Family Care: No Living arrangements: with family Gender identity (if verbalized by the patient): Female Spiritual care concerns: No Meds Home Medications and Allergies Home Medications ?Medication ?Instructions ?Recorded ?Confirmed ?Type albuterol sulfate 90 mcg/actuation 1 puff inhalation DIRECTED 11/22/19 08/24/24 History aerosol inhaler (Ventolin HFA) escitalopram oxalate 5 mg tablet 5 mg PO DIRECTED 11/22/19 08/24/24 History lamotrigine 150 mg tablet 150 mg PO DIRECTED 11/22/19 08/24/24 History meclizine 12.5 mg tablet 12.5 mg PO DIRECTED 11/22/19 08/24/24 History rosuvastatin 10 mg tablet 10 mg PO DIRECTED 11/22/19 08/20/24 History albuterol sulfate 2.5 mg/0.5 mL 5 mg inhalation Q6H PRN shortness 10/17/20 08/20/24 Rx solution for nebulization of breath or wheezing #30 ea fluticasone furoate 200 1 inh inhalation DIRECTED 11/23/23 08/24/24 History mcg-vilanterol 25 mcg/dose inhalation powder (Breo Ellipta) omeprazole 40 mg capsule,delayed 40 mg PO BIDAC #60 caps 12/02/23 08/24/24 Rx release brexpiprazole 1 mg tablet (Rexulti) 1 mg PO DAILY 08/02/24 08/24/24 History lisinopril 20 mg tablet 20 mg PO DAILY 08/20/24 08/24/24 History propranolol 10 mg tablet mg PO DAILY 08/20/24 History Allergies Allergy/AdvReac Type Severity Reaction Status Date / Time No Known Allergies Allergy Unknown Verified 08/24/24 12:58 Vital Signs Vital Signs - 24 hr 08/24/24 12:50 Temperature 96.9 F L Pulse Rate 70 Respiratory Rate 16 Blood Pressure 130/76 Pulse Oximetry 100 Oxygen Delivery Room Air Exam Const: General: cooperative and healthy appearing Resp: Effort & Inspection: normal respiratory effort and able to speak in complete sentences Auscultation: clear to auscultation bilaterally Cardio: Rate: regular rate Rhythm: regular rhythm GI: Inspection: normal to inspection GI Palp: No No hepatosplenomegaly present Auscultation: normal bowel sounds Rectal Exam: deferred Skin: General skin exam: normal color Psych: Appearance: grossly normal Mental Status: mental status grossly normal Assessment and Plan Assessment and plan (1) GERD (gastroesophageal reflux disease): Qualifiers: Esophagitis presence: without esophagitis Qualified Code(s): K21.9 - Gastro-esophageal reflux disease without esophagitis Code(s): K21.9 - Gastro-esophageal reflux disease without esophagitis Status: Acute Assessment and Plan: The patient is deemed a good candidate for the procedure. Consent signed. Will proceed. (2) Dysphagia: Qualifiers: Dysphagia type: esophageal phase Qualified Code(s): R13.19 - Other dysphagia Code(s): R13.10 - Dysphagia, unspecified Status: Acute
[2024-08-24 14:52] VITALS: BP 94/57; PULSE 66; RESP 26; O2SAT 95
[2024-08-24 15:02] VITALS: BP 108/71; PULSE 60; RESP 22; O2SAT 99
[2024-08-24 15:12] VITALS: BP 108/72; PULSE 61; RESP 20; O2SAT 97
== END 2024-08-24 15:16 | disposition home or self-care (01) ==
PROVIDERS: Anesthesiology; PCP Physician Assistant; Referring Provider Nurse Practitioner Family; Visit Provider Internal Medicine Gastroenterology
PROC: 0DJ08ZZ Inspection of Upper Intestinal Tract, Via Natural or Artificial Opening Endoscopic (ICD-10-PCS; CPT 43239; principal; 2024-08-24 14:00)
DX: K21.9 Gastro-esophageal reflux disease without esophagitis (principal); K44.9 Diaphragmatic hernia without obstruction or gangrene; K29.30 Chronic superficial gastritis without bleeding; R13.10 Dysphagia, unspecified; F17.210 Nicotine dependence, cigarettes, uncomplicated; E66.9 Obesity, unspecified; Z68.35 Body mass index [BMI] 35.0-35.9, adult; Z79.899 Other long term (current) drug therapy
CPT/HCPCS: 43239; 82948; 88305; J2003; J2704; J7120

== ENCOUNTER 2024-10-03 09:11 | Outpatient (CLI) | payer MEDICARE, MEDICAID, SELFPAY ==
--- NOTE | ~2024-10-03 | XR_ITS ---
MODIFIED ESOPHAGRAM HISTORY: Gastroesophageal reflux disease without esophagitis TECHNIQUE: Modified barium esophagram was performed on 10/03/2024. I administered fluoroscopy and perfo rmed the exam with speech pathologist. Patient was seated for lateral fluoroscopic imaging for inges tion of thin liquids, pudding, solids and quantified amounts, followed by thin liquids in uncontrolle d amounts. This was recorded on tape. A single fluoroscopic spot image was also recorded. The DAP for this procedure was 0.7 Gycm2. The amount of fluoroscopy time used during this procedure was 1.0 carlos brandy. FINDINGS: Oral stage: Adequate function. Pharyngeal stage: Adequate function. Cervical/esophageal stage: Adequate function. IMPRESSION: Patient tolerated regular consistency oral feedings in the upright position. Please jerson elate with speech pathologist findings and specific feeding recommendations. Reviewed, dictated and finalized at location A. IMPRESSION: Patient tolerated regular consistency oral feedings in the upright position. Please correlate with speech pathologist findings and specific feedi ng recommendations.
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
--- OUTSIDE RECORDS SUMMARY | 2024-10-03 09:46 | XMS_ITS | Referral Summary ---
Author Organization [facility] [address] [facility] Address [address] [place] [address] Care Team Providers Care Sewage Reticulation Drafting Officer Name Role Phone Inez New Primary Care Provider + [phone] Candido Guerin MD Unavailable [phone] Anthony Diez MD Unavailable [phone] Encounters Date Type Department Care Team Description 10/02/[address] [facility] Medical [facility] Family Medicine [address] [facility] [address] [place] [address] Inez New PA Enlarged liver (Primary Dx); Bile duct abnormality 09/28/2024 Telephone [facility] [address] [place] [address] Inez New PA 09/24/[address] [facility] Cardiology [address] [facility] [address] [place] [address] Tessie Rice MA 09/21/[address] [facility] Accountable Care Organization [address] [place] [id number] Antonella Costa Chart Review ([facility] Med Adherence ) 09/11/[address] [facility] Internal Medicine at [place] [address] [place] [address] Inez New PA Need for RSV vaccination (Primary Dx) 09/05/2024 Orders Only [address] [place] [address] Inez New PA Positive HARRIETT (antinuclear antibody) (Primary Dx) 09/05/2024 Orders Only [address] [place] [address] Inez New PA Positive HARRIETT (antinuclear antibody) (Primary Dx) 09/04/2024 Results Follow-Up [address] [place] [address] Inez New PA 08/28/2024 Orders Only [address] [place] [phone] Inez New PA Dizziness (Primary Dx); Persistent headaches 08/28/2024 Orders Only [address] [place] [phone] Inez New PA Facial rash (Primary Dx) 08/24/2024 Orders Only [facility] Health Information Management [address] [place] [address] Inez New PA 08/24/2024 Telephone [facility] [address] [place] [address] Jeffy Manuel MD Cpap titration results / cpap order 08/23/[address] [place] [phone] Inez New PA 08/23/[address] [place] [phone] Inez New PA Medication Request 08/23/2024 Telephone [place] [id number] [place] [phone] Inez New PA 08/23/2024 7:47 PM PROFESSIONAL DEVELOPMENT DIRECTOR - 08/23/2024 11:59 PM PROFESSIONAL DEVELOPMENT DIRECTOR Hospital Encounter [facility] [address] [place] [address] SHERRY (obstructive sleep apnea) Discharge Disposition: Discharge to home or self care 08/20/[address] [place] [phone] Inez New PA 08/15/2024 10:00 AM PROFESSIONAL DEVELOPMENT DIRECTOR Office Visit [address] [place] [phone] Inez New PA Annual physical exam (Primary Dx); Dizziness; Elevated blood pressure reading; Hypertension associated with diabetes (HCC); Type 2 diabetes mellitus without complication, without long-term current use of insulin (HCC); Chronic obstructive pulmonary disease, unspecified COPD type (HCC); Type 2 diabetes mellitus with hyperlipidemia (HCC); SHERRY (obstructive sleep apnea); Morbid obesity (HCC); BMI 40.0-44.9, adult (HCC); Essential (primary) hypertension 08/01/2024 11:00 AM PROFESSIONAL DEVELOPMENT DIRECTOR Telemedicine [facility] [address] [place] [address] Road [address] [place] [phone] Inez New PA Type 2 diabetes mellitus without complication, without long-term current use of insulin (HCC) (Primary Dx); Elevated blood pressure reading; Chronic obstructive pulmonary disease, unspecified COPD type (HCC); Type 2 diabetes mellitus with hyperlipidemia (HCC); Mental health problem; BMI 40.0-44.9, adult (HCC); Morbid obesity (HCC); Hyperlipidemia, unspecified hyperlipidemia type 07/30/2024 Telephone [place] [id number] [place] [phone] Inez New PA 07/26/[address] [place] [address] Inez New PA 07/26/[address] [place] [address] Inez New PA 07/25/[address] [place] [address] Inez New PA 07/18/2024 Orders Only [address] [place] [address] Inez New PA from Last 3 Months Allergies [...] a day 03/06/20 24 Active blood-glucose meter miscIndications:T ype 2 diabetes mellitus without complication, without long-term current use of insulin (HCC) Use daily for monitoring of diabetes. 1 each 03/20/20 24 Active blood glucose diagnostic (glucose blood) stripIndications: Type 2 diabetes mellitus with hyperlipidemia (HCC) Use test strip to check blood glucose level once daily. Patient has an One Touch Verio Reflex Glucose Meter so will need test strips to be used with it. 100 each 11 03/27/20 24 2024 Active lancets (onetouch ultrasoft) miscIndications:T ype 2 diabetes mellitus with hyperlipidemia (HCC) Check blood sugar one time a day. 100 each 4 03/27/20 24 Active FLUoxetine (PROzac) 40 mg capsule Take 1 capsule (40 mg total) by mouth daily Active albuterol HFA (Ventolin HFA) 90 mcg/actuation inhaler Inhale 2 puffs every 4 (four) hours as needed for wheezing 3 each 3 06/11/20 24 Active omeprazole (PriLOSEC) 40 mg capsule Take 1 capsule (40 mg total) by mouth daily 90 capsule 1 06/11/20 24 Active rosuvastatin (CRESTOR) 20 mg tabletIndications :Hyperlipidemia, unspecified hyperlipidemia type Take 1 tablet (20 mg total) by mouth daily 08/13/19 25 Active lisinopriL (PRINIVIL,ZESTRIL ) 20 mg tablet Take 1 tablet (20 mg total) by mouth daily 90 tablet 08/15/19 25 Active fluticasone furoate-vilantero L (Breo Ellipta) 200-25 mcg/dose diskus inhalerIndication s:Chronic obstructive pulmonary disease, unspecified COPD type (HCC) Inhale 1 puff daily Rinse mouth with water after use. Do not swallow. 90 each 1 08/23/19 25 Active metFORMIN (GLUCOPHAGE) 500 mg tabletIndications :Type 2 diabetes mellitus with hyperlipidemia (HCC) Take 1 tablet (500 mg total) by mouth daily with breakfast 90 tablet 2 08/23/19 25 Active nebivoloL (BYSTOLIC) 5 mg tabletIndications :Hypertension associated with diabetes (HCC) TAKE 1 TABLET (5 MG TOTAL) BY MOUTH DAILY. 90 tablet 1 09/13/19 25 Active nebivoloL (BYSTOLIC) 5 mg tabletIndications :Hypertension associated with diabetes (HCC) Take 1 tablet (5 mg total) by mouth daily 30 tablet 1 08/20/19 25 2024 Discontinued Active Problems Problem Noted Date Diagnosed Date Dizziness 08/26/2024 Assessment & Plan (08/26/2024 4:47 PM PROFESSIONAL DEVELOPMENT DIRECTOR): This is a significant, separately identifiable problem that was evaluated and managed on the same day as the wellness exam Patient is having persistent dizziness. She has not really responded to meclizine. Her blood pressure has been elevated and working on getting this down. EKG in the office did show Sinus Rhythm -Left atrial enlargement. -Old anterior infarct. This is new from her last reading in 2019. Will check an echo due to the left atrial enlargement reading and old infarct as patient has not been able to recall any signs or report to the hospital with signs of heart attack. Recommend follow-up with Cardiology for further evaluation as she has had persistent dizziness, very strong family history of CAD and multiple risk factors herself. If she would have chest pain shortness of breath diaphoresis any increase in her symptoms she is to immediately go to the ER for evaluation. She is in agreement with the plan Annual physical exam 08/26/2024 Assessment & Plan (08/26/2024 4:46 PM PROFESSIONAL DEVELOPMENT DIRECTOR): Encouraged healthy lifestyle, good nutrition and exercise. Encouraged Calcium and Vitamin D and weight bearing exercise for bone health. Reviewed immunizations Reviewed age appropirate screenings. Hypertension associated with diabetes 08/15/2024 Assessment & Plan (08/26/2024 4:38 PM PROFESSIONAL DEVELOPMENT DIRECTOR): Blood pressure still isn't perfectly controlled. Continue with the lisinopril 20. She has not been taking the propranolol so will switch to Bystolic 5 for a q.d. dosing and see how she does. Call in a week with readings. BMI 40.0-44.9, adult 06/11/2024 Assessment & Plan (08/15/2024 10:04 AM PROFESSIONAL DEVELOPMENT DIRECTOR): Discussed the patient's BMI. The BMI is above average. BMI management plan is completed. BMI Follow-up includes: nutrition counseling, exercise counseling and education provided. Assessment & Plan (08/01/2024 11:21 AM PROFESSIONAL DEVELOPMENT DIRECTOR): Discussed the patient's BMI. The BMI is above average. BMI management plan is completed. BMI Follow-up includes: nutrition counseling, exercise counseling and education provided. Assessment & Plan (06/11/2024 12:16 PM PROFESSIONAL DEVELOPMENT DIRECTOR): Discussed the patient's BMI. The BMI is above average. BMI management plan is completed. BMI Follow-up includes: nutrition counseling, exercise counseling and education provided. Elevated TSH 03/17/2024 Assessment & Plan (03/18/2024 8:08 PM CDT): Check labs Abnormal thyroid screen (blood) 03/17/2024 Type 2 diabetes mellitus wit hout complication, without long-term current use of insulin 03/17/2024 Assessment & Plan (08/26/2024 4:37 PM PROFESSIONAL DEVELOPMENT DIRECTOR): Stressed importance of continued A1c control to minimize the senior living effects of diabetes. Bring accuchecks to office when instructed to do so. Check A1c about every 3-6 months. Take medication as prescribed. Get annual eye exam. Encouraged GLENDY/Statin if able to tolerate. Encouraged weight control and encouraged diabetic diet and exercise. Continue with metformin 500 el A1c is tightly controlled at 5.8 Assessment & Plan (08/13/2024 1:18 PM PROFESSIONAL DEVELOPMENT DIRECTOR): Stressed importance of continued A1c control to minimize the termite exterminator helper effects of diabetes. Bring accuchecks to office when instructed to do so. Check A1c about every 3-6 months. Take medication as prescribed. Get annual eye exam. Encouraged GLENDY/Statin if able to tolerate. Encouraged weight control and encouraged diabetic diet and exercise. A1c is nicely controlled at 5.9. Continue metformin 500 mg Assessment & Plan (06/11/2024 12:15 PM PROFESSIONAL DEVELOPMENT DIRECTOR): Stressed importance of continued A1c control to minimize the senior living effects of diabetes. Bring accuchecks to office [...] Discussed with patient at length diabetes, pathogenesis, termite exterminator helper sequela, end organ damage, diet/exercise/weight loss, and [...] feet on a regular basis to avoid senior living problems. Offered referral to circus performer. Start metformin 500 mg 1 tablet daily [...] referral Assessment & Plan (09/07/2023 10:34 PM PROFESSIONAL DEVELOPMENT DIRECTOR): Ears are clear. Suspect eustachian tube dysfunction. Recommend Flonase, mucinex and antihistamine. If symptoms persist, may need ENT referral. Morbid obesity 07/22/2022 Assessment & Plan (08/26/2024 4:37 PM PROFESSIONAL DEVELOPMENT DIRECTOR): Discussed the patient's BMI. The BMI is above average. BMI management plan is completed. BMI Follow-up includes: nutrition counseling, exercise counseling and education provided. Assessment & Plan (08/01/2024 11:22 AM PROFESSIONAL DEVELOPMENT DIRECTOR): Discussed the patient's BMI. The BMI is above average. BMI management plan is completed. BMI Follow-up includes: nutrition counseling, exercise counseling and education provided. Assessment & Plan (06/11/2024 12:15 PM PROFESSIONAL DEVELOPMENT DIRECTOR): Discussed the patient's BMI. The BMI is above average. BMI management plan is completed. BMI Follow-up includes: nutrition counseling, exercise counseling and education provided. Assessment & Plan (03/18/2024 8:06 PM CDT): Discussed the patient's BMI. The BMI is above average. BMI management plan is completed. BMI Follow-up includes: nutrition counseling, exercise counseling and education provided. Assessment & Plan (09/07/2023 10:31 PM PROFESSIONAL DEVELOPMENT DIRECTOR): Discussed the patient's BMI. The BMI is above average. BMI management plan is completed. BMI Follow-up includes: nutrition counseling, exercise counseling and education provided. Patient has an obesity-related condition (not limited to: hypertension, obstructive sleep apnea, osteoarthritis, hyperlipidemia, diabetes, etc.). Therefore, morbid obesity may be documented for patients with a BMI between 35.00-39.99. Assessment & Plan (05/21/2023 3:46 PM PROFESSIONAL DEVELOPMENT DIRECTOR): Discussed the patient's BMI. The BMI is above average. BMI management plan is completed. BMI Follow-up includes: nutrition counseling, exercise counseling and education provided. Patient has an obesity-related condition (not limited to: hypertension, obstructive sleep apnea, osteoarthritis, hyperlipidemia, diabetes, etc.). Therefore, morbid obesity may be documented for patients with a BMI between 35.00-39.99. Assessment & Plan (07/22/2022 2:01 PM PROFESSIONAL DEVELOPMENT DIRECTOR): Discussed the patient's BMI. The BMI is above average. BMI management plan is completed. BMI Follow-up includes: nutrition counseling, exercise counseling and education provided. Patient has an obesity-related condition (not limited to: hypertension, obstructive sleep apnea, osteoarthritis, hyperlipidemia, diabetes, etc.). Therefore, morbid obesity may be documented for patients with a BMI between 35.00-39.99. Symptomatic anemia 05/28/2022 Assessment & Plan (09/07/2023 10:29 PM PROFESSIONAL DEVELOPMENT DIRECTOR): Known anemia. Has had transfusion. Continue to [...] Guajardo Assessment & Plan (06/14/2020 5:55 PM PROFESSIONAL DEVELOPMENT DIRECTOR): Refer back to Ortho. Offered PT. She [...] 09/11/2019 Assessment & Plan (06/11/2024 12:15 PM PROFESSIONAL DEVELOPMENT DIRECTOR): Mammogram order provided Assessment & Plan (08/23/2021 9:43 PM PROFESSIONAL DEVELOPMENT DIRECTOR): Mammogram order provided Assessment & Plan (09/26/2020 8:30 PM CDT): Mammogram order provided Assessment & Plan (09/11/2019 9:21 AM CDT): Mammogram order provided Sciatica of right side 06/17/2019 Assessment & Plan (06/17/2019 6:14 PM PROFESSIONAL DEVELOPMENT DIRECTOR): Voltaren gel Exercise/Start PT Followup if sxs worsen or don't improved. Vertigo 02/28/2019 Assessment & Plan (03/18/2024 8:06 PM CDT): Uses meclizine p.r.n. with good results Assessment & Plan (09/26/2020 8:29 PM CDT): antivert prn Assessment & Plan (03/15/2020 11:09 AM CDT): Persitent vertigo. 02/2020 CT head was essentially negative. She has finally agreed to vestibular therapy. Will still change neurology referral from [place] to [place] as patient able to arranage transportation easier. [...] mellitus with hyperlipidemia 09/2018 Assessment & Plan (08/26/2024 4:36 PM PROFESSIONAL DEVELOPMENT DIRECTOR): Encouraged patient to follow low fat/low chol diet like the Mediterranean diet. Increase good fats in the diet. Increase exercise. Monitor labs as needed. Continue Crestor Assessment & Plan (08/13/2024 1:17 PM PROFESSIONAL DEVELOPMENT DIRECTOR): Encouraged patient to follow low fat/low chol diet like the Mediterranean diet. Increase good fats in the diet. Increase exercise. Monitor labs as needed. Continue Crestor Assessment & Plan (06/11/2024 11:51 AM PROFESSIONAL DEVELOPMENT DIRECTOR): Stressed importance of continued A1c control to minimize the senior living effects of diabetes. Bring accuchecks to office [...] 5.9. Tolerating the metformin without difficulty Continue [facility] 20 Assessment & Plan (03/18/2024 8:04 PM CDT): Stressed importance of continued A1c control to minimize the senior living effects of diabetes. Bring accuchecks to office [...] Crestor Assessment & Plan (09/07/2023 10:30 PM PROFESSIONAL DEVELOPMENT DIRECTOR): Encouraged patient to follow low fat/low chol diet like the Mediterranean diet. Increase good fats in the diet. Increase exercise. Monitor labs as needed. Continue with Crestor Assessment & Plan (05/21/2023 3:44 PM PROFESSIONAL DEVELOPMENT DIRECTOR): Encouraged patient to follow low fat/low chol diet like the Mediterranean diet. Increase good fats in the diet. Increase exercise. Monitor labs as needed. Continue Crestor Assessment & Plan (07/22/2022 1:49 PM PROFESSIONAL DEVELOPMENT DIRECTOR): Encouraged patient to follow low fat/low chol diet like the Mediterranean diet. Increase good fats in the diet. Increase exercise. Monitor labs as needed. Continue Crestor Assessment & Plan (08/23/2021 9:42 PM PROFESSIONAL DEVELOPMENT DIRECTOR): Encouraged patient to follow fat/low chol diet [...] 12/04/2018 Assessment & Plan (06/11/2024 12:15 PM PROFESSIONAL DEVELOPMENT DIRECTOR): Encouraged smoking cessation. Discussed 3 minutes. Reviewed options for assistance with cessation. Reviewed termite exterminator helper sequela associated with smoking. Pt declines assistance at this time but may contact the office at anytime for further help as they desire. Assessment & Plan (03/18/2024 8:05 PM CDT): Encouraged smoking cessation. Discussed 3 minutes. Reviewed options for assistance with cessation. Reviewed termite exterminator helper sequela associated with smoking. Pt declines assistance at this time but may contact the office at anytime for further help as they desire. Declines low-dose CT at this point Assessment & Plan (09/07/2023 10:30 PM PROFESSIONAL DEVELOPMENT DIRECTOR): Encouraged smoking cessation. Discussed 3 minutes. Reviewed options for assistance with cessation. Reviewed termite exterminator helper sequela associated with smoking. Pt declines assistance at this time but may contact the office at anytime for further help as they desire. Assessment & Plan (07/22/2022 1:47 PM PROFESSIONAL DEVELOPMENT DIRECTOR): Encouraged smoking cessation. Discussed 3 minutes. Reviewed options for assistance with cessation. Reviewed termite exterminator helper sequela associated with smoking. Pt declines assistance at this time but may contact the office at anytime for further help as they desire. Assessment & Plan (08/23/2021 9:42 PM PROFESSIONAL DEVELOPMENT DIRECTOR): Encouraged smoking cessation. Discussed 3 minutes. Reviewed options for assistance with cessation. Reviewed senior living sequela associated with smoking. Pt declines assistance at this time but may contact the office at anytime for further help as they desire. Assessment & Plan (04/08/2021 2:56 PM CDT): Encouraged smoking cessation. Discussed 3 minutes. Reviewed options for assistance with cessation. Reviewed termite exterminator helper sequela associated with smoking. Pt declines assistance at this time but may contact the office at anytime for further help as they desire. Assessment & Plan (01/18/2021 11:39 PM CDT): Encouraged smoking cessation. Discussed 3 minutes. Reviewed options for assistance with cessation. Reviewed senior living sequela associated with smoking. Pt declines assistance at this time but may contact the office at anytime for further help as they desire. Assessment & Plan (09/26/2020 8:30 PM CDT): Encouraged smoking cessation. Discussed 3 minutes. Reviewed options for assistance with cessation. Reviewed senior living sequela associated with smoking. Pt declines assistance at this time but may contact the office at anytime for further help as they desire. Assessment & Plan (06/14/2020 5:55 PM PROFESSIONAL DEVELOPMENT DIRECTOR): Encouraged smoking cessation. Discussed 3 minutes. Reviewed options for assistance with cessation. Reviewed termite exterminator helper sequela associated with smoking. Pt declines assistance at this time but may contact the office at anytime for further help as they desire. Assessment & Plan (03/15/2020 11:10 AM CDT): Encouraged smoking cessation. Discussed 3 minutes. Reviewed options for assistance with cessation. Reviewed termite exterminator helper sequela associated with smoking. Pt declines assistance [...] Reviewed options for assistance with cessation. Reviewed senior living sequela associated with smoking. Pt declines assistance at this time but may contact the office at anytime for further help as they desire. Assessment & Plan (06/17/2019 6:16 PM PROFESSIONAL DEVELOPMENT DIRECTOR): Encouraged smoking cessation. Discussed 3 minutes. Reviewed options for assistance with cessation. Reviewed termite exterminator helper sequela associated with smoking. Pt declines assistance at this time but may contact the office at anytime for further help as they desire. Assessment & Plan (01/30/2019 1:03 PM CDT): Encouraged smoking cessation. Discussed approx 3 minutes. Gastroesophageal reflux disease without esophagi tis 12/04/2018 Assessment & Plan (06/11/2024 12:15 PM PROFESSIONAL DEVELOPMENT DIRECTOR): Continue PPI Assessment & Plan (03/18/2024 8:05 PM CDT): Patient has been following closely with Dr. Guerin GI. She transferred and saw Dr. Nath and had an EGD done. States at this point her symptoms are pretty stable so will just continue to monitor continuing the Bentyl as needed and continue PPI p.r.n. Assessment & Plan (05/21/2023 3:44 PM PROFESSIONAL DEVELOPMENT DIRECTOR): Continue PPI p.r.n.. Continue per GI Assessment & Plan (07/22/2022 1:47 PM PROFESSIONAL DEVELOPMENT DIRECTOR): Continue per Dr. Guerin. She is currentl on omeprazole sucralfate. Will await his recommendations Assessment & Plan (08/23/2021 9:42 PM PROFESSIONAL DEVELOPMENT DIRECTOR): Continue PPI. She is unsure if the Dexilant will continue to be covered by her insurance so she will contact us with the letter she has at home with her options. Assessment & Plan (04/08/2021 2:55 PM CDT): Increased reflux symptoms. She is currently on Dexilant. Encouraged to continue with the same regimen. Will refer her to GI Dr. Zamora at [place] she is due for colonoscopy and may [...] 12/04/2018 Assessment & Plan (06/11/2024 12:15 PM PROFESSIONAL DEVELOPMENT DIRECTOR): Supplement Assessment & Plan (03/18/2024 8:06 PM CDT): Supplement Assessment & Plan (09/07/2023 10:30 PM PROFESSIONAL DEVELOPMENT DIRECTOR): Supplement Assessment & Plan (05/21/2023 3:44 PM PROFESSIONAL DEVELOPMENT DIRECTOR): Supplement Assessment & Plan (07/22/2022 1:47 PM PROFESSIONAL DEVELOPMENT DIRECTOR): Supplement Assessment & Plan (09/26/2020 8:14 PM CDT): supplement Assessment & Plan (09/11/2019 9:18 AM CDT): supplement Assessment & Plan (01/30/2019 1:02 PM CDT): supplement COPD (chronic obstructive pulmonary disease) 09/2018 Assessment & Plan (08/26/2024 4:37 PM PROFESSIONAL DEVELOPMENT DIRECTOR): COPD symptoms have been stable. Continue Breo and albuterol p.r.n. Assessment & Plan (08/13/2024 1:18 PM PROFESSIONAL DEVELOPMENT DIRECTOR): Continue with albuterol and Breo as breathing is stable Assessment & Plan (06/11/2024 12:15 PM PROFESSIONAL DEVELOPMENT DIRECTOR): Encouraged complete smoking cessation. Continue Breo and albuterol as needed Assessment & Plan (03/18/2024 8:06 PM CDT): Encouraged complete smoking cessation. Continue albuterol nebs and Breo as needed. Assessment & Plan (09/07/2023 10:30 PM PROFESSIONAL DEVELOPMENT DIRECTOR): Patient with COPD. Continue with albuterol and Breo. Assessment & Plan (05/21/2023 3:44 PM PROFESSIONAL DEVELOPMENT DIRECTOR): Continue Symbicort and albuterol p.r.n. continue Flonase Assessment & Plan (07/22/2022 1:47 PM PROFESSIONAL DEVELOPMENT DIRECTOR): Stressed smoking cessation. Continue Symbicort albuterol inhaler nebulizer p.r.n. Assessment & Plan (07/27/2021 7:15 AM PROFESSIONAL DEVELOPMENT DIRECTOR): Continues Symbicort/prn albuterol Still requires Neb Albuterol [...] basis as instructed. New prescription sent to [place] pharmacy. Esyx-nd-bvct completed today Assessment & Plan (09/26/2020 8:14 PM CDT): Continue Symbicort and Albuterol prn Assessment & Plan (03/15/2020 11:10 AM CDT): Continue current regimen. Stop smoking Assessment & Plan (09/11/2019 9:18 AM CDT): STOP smoking. Continue with current regimen inhalers Albuterol/Symbicort Assessment & Plan (01/30/2019 12:54 PM CDT): Continue with Symbicort SHERRY (obstructive sleep apnea) 12/02/2018 Assessment & Plan (08/26/2024 4:36 PM PROFESSIONAL DEVELOPMENT DIRECTOR): Patient has been diagnosed with SHERRY. Awaiting titration study for treatment plan. Continue per Dr. Manuel Assessment & Plan (06/11/2024 11:43 AM PROFESSIONAL DEVELOPMENT DIRECTOR): Patient has established with Dr. Manuel. She had her sleep study test that did confirm sleep apnea. Awaiting the titration study Assessment & Plan (03/18/2024 8:03 PM CDT): Patient was diagnosed with sleep apnea at [facility] with Dr. Joseph. She would not wear the mask so sent the machine back. Has been untreated for many years. Continues to snore and have daytime sleepiness. Strongly encouraged re- evaluation. Willing to see Dr. Manuel at [facility]. Referral placed Assessment & Plan (09/07/2023 10:30 PM PROFESSIONAL DEVELOPMENT DIRECTOR): Continue with CPAP Assessment & Plan (07/22/2022 1:36 PM PROFESSIONAL DEVELOPMENT DIRECTOR): Continue CPAP Assessment & Plan (04/08/2021 2:56 [...] 12/02/2018 Assessment & Plan (08/13/2024 1:17 PM PROFESSIONAL DEVELOPMENT DIRECTOR): Continue to follow with Shakira in [place] Dr. Etienne's office. She stopped her clonazepam [...] acutely. Assessment & Plan (06/11/2024 11:43 AM PROFESSIONAL DEVELOPMENT DIRECTOR): Continue per psychiatrist. She continues to take out her medications and they are updated on her chart Assessment & Plan (03/18/2024 8:04 PM CDT): Continue following with her psychiatrist for management of her mental health concerns. Assessment & Plan (09/07/2023 10:30 PM PROFESSIONAL DEVELOPMENT DIRECTOR): Continue per Psychiatry. Current medications include Klonopin Ingrezza Lexapro Vraylar 6 mg Lamictal and lithium Assessment & Plan (05/21/2023 3:45 PM PROFESSIONAL DEVELOPMENT DIRECTOR): Continue per psychiatrist Assessment & Plan (07/22/2022 1:45 PM PROFESSIONAL DEVELOPMENT DIRECTOR): Continue per psychiatrist. Patient states she is on clonazepam, latuda, Hydroxyzine, Cymbalta and Lexapro Assessment & Plan (08/23/2021 9:42 PM PROFESSIONAL DEVELOPMENT DIRECTOR): Per psychiatrist Assessment & Plan (04/08/2021 2:58 PM CDT): Continue per Psychiatry Assessment & Plan (06/14/2020 5:56 PM PROFESSIONAL DEVELOPMENT DIRECTOR): Unsure of exact diagnosis. Medication/treatment plan is [...] Problem Noted Date Diagnosed Date Resolved Date Elevated blood pressure reading 08/13/2024 08/26/2024 Assessment & Plan (08/13/2024 1:19 PM PROFESSIONAL DEVELOPMENT DIRECTOR): Advised patient it is difficult to know if she has true hypertension versus anxiety/panic. Recommend doing home readings and calling us in a couple of weeks with those readings. If she can not do them at home she can always come in but I know transportation is sometimes difficult. Need for influenza vaccination 06/11/2024 08/26/2024 Assessment & Plan (06/11/2024 12:16 PM PROFESSIONAL DEVELOPMENT DIRECTOR): Flu vaccine updated in the office today Annual physical exam 06/11/2024 025 Assessment & Plan (06/11/2024 12:16 PM PROFESSIONAL DEVELOPMENT DIRECTOR): Encouraged healthy lifestyle, good nutrition and exercise. Encouraged Calcium and Vitamin D and weight bearing exercise for bone health. Reviewed immunizations Reviewed age appropirate screenings. PND (post-nasal drip) 05/18/20242023 Bilateral impacted cerumen 05/18/2024 1 08/12/2023 BMI 45.0-49.9, adult 03/06/2024 024 Assessment & Plan (03/18/2024 8:08 PM CDT): Discussed the patient's BMI. The BMI is above average. BMI management plan is completed. BMI Follow-up includes: nutrition counseling, exercise counseling and education provided. Medicare annual wellness visit, subsequent 09/07/2023 03/17/2024 Assessment & Plan (09/07/2023 10:31 PM PROFESSIONAL DEVELOPMENT DIRECTOR): Encouraged healthy lifestyle, good nutrition and exercise. Encouraged Calcium and Vitamin D and weight bearing exercise for bone health. Reviewed immunizations. Reviewed age appropirate screenings. Medicare Wellness Documentation is completed within the chart BMI 38.0-38.9,adult 05/21/2023 09/07/19 24 Assessment & Plan (05/21/2023 3:46 PM PROFESSIONAL DEVELOPMENT DIRECTOR): Discussed the patient's BMI. The BMI is above average. BMI management plan is completed. BMI Follow-up includes: nutrition counseling, exercise counseling and education provided. BMI 39.0-39.9,adult 07/22/2022 05/04/20 23 Assessment & Plan (07/22/2022 1:48 PM PROFESSIONAL DEVELOPMENT DIRECTOR): Discussed the patient's BMI. The BMI is above average. BMI management plan is completed. BMI Follow-up includes: nutrition counseling, exercise counseling and education provided. Need for vaccination 07/22/2022 Assessment & Plan (05/21/2023 3:46 PM PROFESSIONAL DEVELOPMENT DIRECTOR): Flu vaccine updated in the office Assessment & Plan (07/22/2022 1:48 PM PROFESSIONAL DEVELOPMENT DIRECTOR): Flu vaccine at the office today Encounter for screening mamm ogram for malignant neoplasm of breast 07/22/2022 09/07/2023 Assessment & Plan (07/22/2022 1:48 PM PROFESSIONAL DEVELOPMENT DIRECTOR): Mammogram order provided Bloody diarrhea 04/08/2021 09/07/2023 [...] 09/07/2023 Assessment & Plan (07/22/2022 1:48 PM PROFESSIONAL DEVELOPMENT DIRECTOR): Encouraged healthy lifestyle, good nutrition and exercise. [...] 2016. Prefers to see a provider at [facility]. She is also having burning in [...] 01/14/20212022 Assessment & Plan (08/23/2021 9:43 PM PROFESSIONAL DEVELOPMENT DIRECTOR): Obesity is unchanged. Discussed the patient's BMI. [...] 23 Assessment & Plan (07/27/2021 7:21 AM PROFESSIONAL DEVELOPMENT DIRECTOR): Obesity is unchanged. Discussed the patient's BMI. [...] onset of sxs. Check COVID test thru [facility] collection site in [place]. Treat sxs with Tylenol, Cough/cold medication otc [...] water often. If needed, use a hand director of corporate strategy that contains at least 60% alcohol. Clean [...] 04/08/2021 Assessment & Plan (07/22/2020 11:47 AM PROFESSIONAL DEVELOPMENT DIRECTOR): Declines covid 19 testing at this time. Will start on ceftin 500mg bid x 7 days. She was advised to report to office if having otorrhea or worsening of symptoms. Need for immunization against influenza 06/14/2020 02/17/2021 Assessment & Plan (06/14/2020 5:57 PM PROFESSIONAL DEVELOPMENT DIRECTOR): Updated in office today BMI 37.0-37.9, adult 06/10/2020 024 Assessment & Plan (09/07/2023 10:31 PM PROFESSIONAL DEVELOPMENT DIRECTOR): Discussed the patient's BMI. The BMI is above average. BMI management plan is completed. BMI Follow-up includes: nutrition counseling, exercise counseling and education provided. Assessment & Plan (06/10/2020 1:35 PM PROFESSIONAL DEVELOPMENT DIRECTOR): Obesity is unchanged. Discussed the patient's BMI. The BMI is above average. BMI management plan is completed. BMI Follow-up includes: nutrition counseling, exercise counseling and education provided.Obesity is unchanged. Discussed the patient's BMI. Positive depression screening 06/10/2020 08/26/2024 Assessment & Plan (07/22/2020 11:47 AM PROFESSIONAL DEVELOPMENT DIRECTOR): Continue medication same Assessment & Plan (06/14/2020 5:56 PM PROFESSIONAL DEVELOPMENT DIRECTOR): Pt denies any suicidal or homicidal thoughts. [...] consent is obtained. BMI 34.0-34.9,adult 09/11/2019 03/15/20 Assessment & Plan (09/11/2019 8:01 AM CDT): [...] 03/17/2024 Assessment & Plan (09/07/2023 10:30 PM PROFESSIONAL DEVELOPMENT DIRECTOR): Probably multifactorial. Check labs and followup to re-evaluate Assessment & Plan (09/11/2019 9:21 AM CDT): Probably multifactorial. Check labs and followup to re-evaluate Hyperglycemia 09/11/2019 03/06/2024 Assessment & Plan (09/07/2023 10:30 PM PROFESSIONAL DEVELOPMENT DIRECTOR): Pre-diabetes/hyperglycemia is a precursor to Dm. Stressed [...] staff should administer the PHQ-9) 6 08/15/2024 PHQ-9 Answer Date Recorded PHQ-9 Total Score 24 08/15/2024 Comments No Sex and Gender Information Value Date Recorded Sex Assigned at Not on file Legal Sex Female 4:54 AM PROFESSIONAL DEVELOPMENT DIRECTOR Gender Identity Not on file Sexual Orientation Not on file Occupation Industry Job Start Date Job End Date Disabled Not on file Not on file Not on file Last Filed Vital Signs Vital Sign Reading Time Taken Comments Blood Pressure 164/86 08/15/2024 10:04 AM PROFESSIONAL DEVELOPMENT DIRECTOR Pulse 85 08/15/2024 10:04 AM PROFESSIONAL DEVELOPMENT DIRECTOR Temperature 36.3 C (97.4 F) 08/15/2024 10:04 AM PROFESSIONAL DEVELOPMENT DIRECTOR Respiratory Rate 18 05/18/2024 9:37 AM PROFESSIONAL DEVELOPMENT DIRECTOR Oxygen Saturation 97% 08/15/2024 10:04 AM PROFESSIONAL DEVELOPMENT DIRECTOR Inhaled Oxygen Concentration - - Weight 105 kg (231 lb 6.4 oz) 08/15/2024 10:04 A M PROFESSIONAL DEVELOPMENT DIRECTOR Height 154.9 cm (5' 1 ) 08/15/2024 10:04 AM PROFESSIONAL DEVELOPMENT DIRECTOR Body Mass Index 43.72 08/15/2024 10:04 AM PROFESSIONAL DEVELOPMENT DIRECTOR Plan of Treatment Not on file Procedures Procedure Name Priority Date/Time Associated Diagnosis Comments HARRIETT TITER & PATTERN Routine 08/28/2024 1 :17 PM PROFESSIONAL DEVELOPMENT DIRECTOR HARRIETT QUALITATIVE WITH REFLEX TO HARRIETT QUANTITATIVE Routine 08/28/2024 1:17 PM PROFESSIONAL DEVELOPMENT DIRECTOR Facial rash SCAN - PATHOLOGY 08/24/2024 GI - RESULT 08/24/2024 PSG (COMPLEX) Routine 08/23/2024 7:47 PM PROFESSIONAL DEVELOPMENT DIRECTOR SHERRY (obstructive sleep apnea) ECG 12-LEAD Routine 08/15/2024 10:46 AM PROFESSIONAL DEVELOPMENT DIRECTOR Elevated blood pressure reading SCREENING MAMMOGRAM BILATERAL W ALBERTO Schedule Routine, Read Routine (OP Routine) 08/08/2024 2:15 PM PROFESSIONAL DEVELOPMENT DIRECTOR Breast cancer screening by mammogram ALBUMIN CREATININE RATIO, URINE Routine 06/01/2024 7:12 AM PROFESSIONAL DEVELOPMENT DIRECTOR Type 2 diabetes mellitus with hyperlipidemia (HCC) COMPREHENSIVE METABOLIC PANEL Routine 06/01/2024 7:11 AM PROFESSIONAL DEVELOPMENT DIRECTOR Type 2 diabetes mellitus with hyperlipidemia (HCC) HEMOGLOBIN A1C Routine 06/01/2024 7:11 AM PROFESSIONAL DEVELOPMENT DIRECTOR Type 2 diabetes mellitus with hyperlipidemia (HCC) LIPID PANEL Routine 06/01/2024 7:11 AM PROFESSIONAL DEVELOPMENT DIRECTOR Hyperlipidemia, unspecified hyperlipidemia type HM COLONOSCOPY Routine 05/26/2021 THINPREP HUMAN RESOURCES RECEPTIONIST PAP (IMAGE GUIDED) LIQUID-BASED PREP Routine 08/03/2017 12:16 PM PROFESSIONAL DEVELOPMENT DIRECTOR from Last 3 Months or Most Recently Relevant to Health Maintenance Results * (ABNORMAL) HARRIETT ab ql w/rflx to HARRIETT qn (08/28/2024 1:17 PM PROFESSIONAL DEVELOPMENT DIRECTOR) HARRIETT, qual POSITIVE( A) NEGATIVE [facility] [place] Comment: HARRIETT IFA is a first line screen for detecting the presence of up to approximately 150 autoantibodies in various autoimmune diseases. A positive HARRIETT IFA result is suggestive of autoimmune disease and reflexes to titer and pattern. Further laboratory testing may be considered if clinically indicated. For additional information, please refer to http://education.[employer]/faq/LBV991 (This link is being provided for informational/ educational purposes only.) Blood 08/28/2024 1:17 PM PROFESSIONAL DEVELOPMENT DIRECTOR 08/28/2024 1:18 PM PROFESSIONAL DEVELOPMENT DIRECTOR Narrative [facility] - 08/30/2024 1:13 PM PROFESSIONAL DEVELOPMENT DIRECTOR FASTING:YES FASTING: YES us Inez VELASCO LAB BLOOD ORDERABLES Final Result [facility] [address] [place] [address] * (ABNORMAL) Antinuclear Antibodies Titer and Pattern (08/28/2024 1:17 PM PROFESSIONAL DEVELOPMENT DIRECTOR) HARRIETT, quant 1:80(H) titer [facility] Comment: A low level HARRIETT titer may be present in pre-clinical autoimmune diseases and normal individuals. Reference Range <1:40 Negative 1:40-1:80 Low Antibody Level >1:80 Elevated Antibody Level HARRIETT, pattern Nuclear, Homogeneou s(A) [facility] Comment: Homogeneous pattern is associated with systemic lupus erythematosus (SLE), drug-induced lupus and juvenile idiopathic arthritis. AC-1: Homogeneous International Consensus on HARRIETT Patterns (https://doi.org/10.1515/npmr-8084-8597) 08/28/2024 1:17 PM PROFESSIONAL DEVELOPMENT DIRECTOR 08/28/2024 1:18 PM PROFESSIONAL DEVELOPMENT DIRECTOR Narrative [facility] - 08/30/2024 1:13 PM PROFESSIONAL DEVELOPMENT DIRECTOR FASTING:YES FASTING: YES Inez VELASCO LAB BLOOD ORDERABLES Final Result Performing Organization Address City/[facility]/ZIP Co de Phone Number [facility] [address] [place] [address] * GI - RESULT (08/24/2024) Anatomical Region Laterality Modality Other us Inez VELASCO Final Resu lt * SCAN - PATHOLOGY (08/24/2024) Provider Scanning Final Result * PSG-Sleep Provider Use Only (08/23/2024 7:47 PM PROFESSIONAL DEVELOPMENT DIRECTOR) us Jeffy Manuel MD SLEEP CENTER ORDERABLES F inal Result [facility] [address] [place] [address] * ECG 12 lead (08/15/2024 10:46 AM PROFESSIONAL DEVELOPMENT DIRECTOR) Inez VELASCO ECG ORDERABLES Final Resu lt * Screening Mammogram Bilateral W Alberto (08/08/2024 2:15 PM PROFESSIONAL DEVELOPMENT DIRECTOR) Anatomical Region Laterality Modality Breast Bilateral Mammography Impressions 08/08/2024 2:15 PM PROFESSIONAL DEVELOPMENT DIRECTOR 1.No mammographic evidence of malignancy 2.Routine screening recommended for 1 year BI-RADS Category 1 Negative us Inez VELASCO IMG MAMMO PROCEDURES Final Result * Albumin Creatinine Ratio, Urine (06/01/2024 7:12 AM PROFESSIONAL DEVELOPMENT DIRECTOR) Creatinine, ur 42 20 - 275 mg/dL [...] a diagnostic category. Urine 06/01/2024 7:12 AM PROFESSIONAL DEVELOPMENT DIRECTOR 06/01/2024 7:13 AM PROFESSIONAL DEVELOPMENT DIRECTOR Inez VELASCO LAB URINE ORDERABLES Final Result [facility] [address] [place] [address] * (ABNORMAL) Hemoglobin A1c (06/01/2024 7:11 AM PROFESSIONAL DEVELOPMENT DIRECTOR) Hgb A1C 5.9(H) <5.7 % of total Hgb [facility] Comment: For someone without known diabetes, [...] diabetes for children. Blood 06/01/2024 7:11 AM PROFESSIONAL DEVELOPMENT DIRECTOR 06/01/2024 7:11 AM PROFESSIONAL DEVELOPMENT DIRECTOR Narrative [facility] - 06/01/2024 9:56 PM PROFESSIONAL DEVELOPMENT DIRECTOR FASTING:YES FASTING: YES Inez VELASCO LAB BLOOD ORDERABLES Final Result [facility] [address] [place] [address] * (ABNORMAL) Lipid panel (06/01/2024 7:11 AM PROFESSIONAL DEVELOPMENT DIRECTOR) Pathologist [facility] Cholesterol 142 <200 mg/dL [employer] shukri Jackson HDL 47(L) > OR = 50 mg/dL [employer] shuk[facility] Jackson Triglycerides 124 <150 mg/dL [employer] shuk[facility] Jackson LDL 74 mg/dL (calc) [employer] shukri Jackson Comment: Reference range: <100 Desirable range <100 mg/dL for primary prevention; <70 mg/dL for patients with CHD or diabetic patients with > or = 2 CHD risk factors. LDL-C is now calculated using the Arley-Devi calculation, which is a validated novel method providing better accuracy than the Friedewald equation in the estimation of LDL-C. Arley COSTA et al. FRANKY. 2013;310(19): 7719-5532 (http://education.[employer].[facility] [place]/faq/HHL885) Chol/HDL ratio 3.0 <5.0 (calc) [facility] Non-HDL, (LDL+VLDL) 95 <130 mg/dL (calc) [employer] shukri [facility] Comment: For patients with diabetes plus 1 major ASCVD risk factor, treating to a non-HDL-C goal of <100 mg/dL (LDL-C of <70 mg/dL) is considered a therapeutic option. Blood 06/01/2024 7:11 AM PROFESSIONAL DEVELOPMENT DIRECTOR 06/01/2024 7:11 AM PROFESSIONAL DEVELOPMENT DIRECTOR Narrative [facility] - 06/01/2024 9:56 PM PROFESSIONAL DEVELOPMENT DIRECTOR FASTING:YES FASTING: YES Inez VELASCO LAB BLOOD ORDERABLES Final Result ESTELLA Jackson [address] [place] [address] * Comprehensive metabolic panel (06/01/2024 7:11 AM PROFESSIONAL DEVELOPMENT DIRECTOR) Pathologist [facility] Glucose 98 65 - 99 mg/dL Estella [facility] Comment: Fasting reference interval BUN 11 7 - 25 mg/dL Estella [facility] Creatinine 0.75 0.50 - 1.03 mg/dL Est[facility]S shukri Jackson eGFR 95 > OR = 60 mL/min/1.7 3m2 Estella [facility] [facility] shukri Jackson BUN/creat ratio SEE NOTE: 6 - 22 (calc) Esetlla [facility] shuk[facility] Jackson Comment: Not Reported: BUN and Creatinine are within reference range. Sodium 136 135 - 146 mmol/L [facility] Potassium, pl 4.3 3.5 - 5.3 mmol/L [facility] Chloride 102 98 - 110 mmol/L Est[facility] shukri Jackson CO2 26 20 - 32 mmol/L [facility] Calcium 9.5 8.6 - 10.4 mg/dL [facility] Protein, sr 6.8 6.1 - 8.1 g/dL [facility] Albumin 4.6 3.6 - 5.1 g/dL [facility] Manuel GLOBULIN 2.2 1.9 - 3.7 g/dL (calc) [facility] Alb/glob ratio 2.1 1.0 - 2.5 (calc) Estella [facility] Bilirubin, total 0.6 0.2 - 1.2 mg/dL Estella [facility] Alk phos 69 37 - 153 U/L [facility] AST 24 10 - 35 U/L [facility] ALT (SGPT) 21 6 - 29 U/L [facility] shukri Jackson Blood 06/01/2024 7:11 AM PROFESSIONAL DEVELOPMENT DIRECTOR 06/01/2024 7:11 AM PROFESSIONAL DEVELOPMENT DIRECTOR Narrative [facility] - 06/01/2024 9:56 PM PROFESSIONAL DEVELOPMENT DIRECTOR FASTING:YES FASTING: YES Inez VELASCO LAB BLOOD ORDERABLES Final Result Performing Organization Address City/[facility]/ZIP Co de Phone Number [facility] [place] [address] [place] [address] * (ABNORMAL) COLONOSCOPY (05/26/2021) Historical Provider HEALTH MAINTENANCE Edited Result - Final * ThinPrep Gynecologic Pap Test (Image-guided), Liquid-based Preparation (08/03/2017 12:16 PM PROFESSIONAL DEVELOPMENT DIRECTOR) CLINICAL INFORMATION [facility] HISTORICAL RESULTS Comment:Information not prov ided LMP: 07/19 [facility] PREV. PAP: [facility] HISTORICAL RESULTS Comment:MANY YEARS AGO PREV. BX: [facility]ULTS Comment:INFORMATION NOT PROV IDED SOURCE: [facility]ISTORICAL RESULTS Comment:Cervix, Endocervix STATEMENT OF ADEQUACY: [facility] HISTORICAL RESULTS Comment: Satisfactory for evaluation. Endocervical/transformation zone component present. INTERPRETATION/RESU LT: [facility] Comment:Negative for intraep ithelial lesion or malignancy. COMMENT: [facility] HISTORICAL RESULTS Comment: This Pap test has been evaluated with computer assisted technology. [facility]: [facility] HISTORICAL RESULTS Comment: YQ, CT(ASCP) CT screening location: [place] [address] [place] [address] 08/03/2017 12:1 6 PM PROFESSIONAL DEVELOPMENT DIRECTOR 08/09/2017 8:55 PM PROFESSIONAL DEVELOPMENT DIRECTOR Narrative [facility] HISTORICAL RESULTS - 08/09/2017 8:41 PM PROFESSIONAL DEVELOPMENT DIRECTOR 0 PERFORMING LAB: , [place] [address] [place] [address] Mahi Mcmahon MD Historical Provider LAB PATHOLOGY ORDERABLES Final Result Performing Organization Address City/[facility]/ZIP Co de Phone Number [facility] HISTORICAL RESULTS from Last 3 Months or Most Recently Relevant to Health Maintenance [place] [address] [place] [address] [facility] MEDICARE ADVANTAGE [facility] MEDICARE ADVANTAGE [facility] MEDICARE [facility] MED[facility] Address: [place] [id number] [place] [address] Advance Directives For more information, please contact: [phone] * Full Code (Latest Code Status on File) Date Activated Date Inactivated Comments 05/29/2022 12:59 PM 05/30/2022 2:26 PM * Full Code Date Activated Date Inactivated Comments 05/28/2022 7:20 PM 05/29/2022 12:59 PM Care Teams Sewage Reticulation Drafting Officer Relationship Specialty Start Date End Date Inez New [place] [address] [place] [address] PCP - General 09/14/17 Candido Guerin MD [address] [place] [address] Consulting Physician Gastroenterology 05/04/23 Anthony Diez MD [address] [place] [address] Consulting Physician Rheumatology 09/18/24
--- OUTSIDE RECORDS SUMMARY | 2024-10-03 09:47 | XMS_ITS | Encounter Summary ---
Author Organization [facility] Facility Care Team Providers Care Machine Captain Name Role Phone Inez New Primary Care Provider [phone] Candido Guerin MD Unavailable [phone] Anthony Diez MD Unavailable [phone] Encounter Details Date Type Department Care Team (Latest Contact Info) Description 10/01/2016 Orders Only [facility] CLINCONV ProviderVishal MD [address] [place], [place] [id number] Social History Tobacco Use Types Packs/Day Years Used Date Smoking Tobacco: Never Assessed Comments Unknown Sex and Gender Information Value Date Recorded Sex Assigned at Not on file Legal Sex Female 4:54 AM SOFT MUD MOLDER Gender Identity Not on file Sexual Orientation [...] CV CARDIAC SERVICES PROCE DURES Final Result documented in this encounter Visit Diagnoses Not on filedocumented in this encounter Additional Health Concerns Infection Onset Date Last Indicated Resolved Time COVID: Suspected 01/10/2020 01/10/2020 01/24/2020 3:08 AM CDT COVID: Suspected 10/22/2020 10/22/2020 11/05/2020 3:05 AM CDT documented as of this encounter Care Teams Machine Captain Relationship Specialty Start Date End Date Inez New [place] [address] [place] [address] PCP - General 09/14/17 Candido Guerin MD [address] [place] [address] Consulting Physician Gastroenterology 05/04/23 Anthony Diez MD [address] [place] [address] Consulting Physician Rheumatology 09/18/24 documented as of this encounter
--- OUTSIDE RECORDS SUMMARY | 2024-10-03 09:47 | XMS_ITS | Clinical Summary ---
Author Organization [facility] Address [facility] [place] [address] Care Team Providers Care Cyber Incident Handler Name Role Phone Inez New Primary Care Provider [phone] Allergies No known active allergies Medications rosuvastatin [...] Active zolpidem 5 MG tablet 1 Active Encounters Date Type Department Care Team Description 09/27/2024 9:35 PM CDT - 09/28/2024 10:32 AM CDT Emergency [facility] [place] [address] [facility] Discharge Disposition: Home or Self Care (Routine Discharge) 09/27/2024 Travel from Last 3 Months Family History Medical History Relation Comments Colon Cancer Mother Relation Status Comments Mother Social History Tobacco Use Types Packs/Day Years Used Date Smoking Tobacco: Light Smoker Smokeless Tobacco: Never Alcohol Use Standard Drinks/Week Comments Yes 0 (1 standard drink = 0.6 oz pur e alcohol) occassional Comments Unknown Sex and Gender Information Value Date Recorded Sex Assigned at Female 09/27/2024 9:47 PM CDT Legal Sex Female 5:59 PM CDT Gender Identity Female 09/27/2024 9:47 PM CDT Sexual Orientation Not on file Last Filed Vital Signs Vital Sign Reading Time Taken Comments Blood Pressure 150/91 09/28/2024 10:27 AM CDT Pulse 73 09/28/2024 10:27 AM CDT Temperature 36.8 C (98.2 F) 09/27/2024 9:42 PM CDT Respiratory Rate 16 09/28/2024 10:2 7 AM CDT Oxygen Saturation 95% 09/28/2024 10: 27 AM CDT Inhaled Oxygen Concentration - - Weight 109.4 kg (241 lb 2.9 oz) 09/27/2024 9:42 PM CDT Height 170.2 cm (5' 7 ) 09/27/2024 9:42 PM CDT Body Mass Index 37.77 09/27/2024 9:42 PM CDT Plan of Treatment Health Maintenance Due Date [...] 5 Years 2001 Cervical Cancer Screening wi HPV 2001 Zoster Vaccines (1 of 2) 2021 COVID-19 Vaccine ( - 2023-2 5 season) 2024 11/25/2020, 10/30/2020 Mammogram Screening 08/08/2026 08/08/2024, 07/19/2023 DTaP, Tdap and Td Vaccines ( 2 [...] Procedure Name Priority Date/Time Associated Diagnosis Comments MRI BRAIN WO CON STAT 09/28/2024 9:[address] HEAD WO CON STAT 09/28/2024 1:30 AM CDT DRUG SCREEN RAPID STAT 09/27/2024 11: 55 PM CDT XR CHEST PORTABLE STAT 09/27/2024 10: 40 PM CDT ECG 12-LEAD STAT 09/27/2024 10:[address] CHEST+ABD+PEL W CON STAT 10:[address] CERV SPINE WO CON STAT 09/27/2024 10:[address] HEAD WO CON STAT 09/27/2024 10:14 PM CDT ETHANOL STAT 09/27/2024 9:48 PM CDT CBC W/DIFF AUTOMATED STAT 09/27/2024 9:48 PM CDT COMPREHENSIVE METABOLIC PANEL STAT 09/27/2024 9:48 PM CDT COLONOSCOPY Routine 05/26/2021 5:23 AM 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 Ordered By: NYLA GREER Interpreted By: Cooper Kraft MD, 09/28/2024 9:47 AM Narrative 09/28/2024 9:58 AM CDT [facility] [address] [place], [place] [address] EXAMINATION: MRI brain without contrast. EXAM DATE/TIME: 09/28/2024 9:22 AM REASON FOR EXAM: Fall last night, dizziness COMPARISON: CT head 09/20/2024 TECHNIQUE: Multiplanar multisequence magnetic resonance images of the brain were obtained without intravenous contrast. FINDINGS: No restricted diffusion to suggest an acute infarction. No hemorrhagic focus of susceptibility. Preserved cowart-white matter differentiation. The sellar, callosal, pineal, and craniovertebral junction regions appear within normal limits. There is no extra-axial collection. The ventricles are normal in size. The basal cisterns appear normal. The proximal intracranial arterial flow voids have a normal appearance. Orbital contents appear normal. Mild mucosal thickening involving the paranasal sinuses. Trace right mastoid air cell fluid. The left mastoid air cells are well aerated. Procedure Note Cooper Kraft MD - 09/28/[address] [address] EXAMINATION: MRI brain without contrast. EXAM DATE/TIME: 09/28/2024 9:22 AM REASON FOR EXAM: Fall last night, dizziness COMPARISON: CT head 09/20/2024 TECHNIQUE: Multiplanar multisequence magnetic resonance images of thebrain were obtained without intravenous contrast. FINDINGS: No restricted diffusion to suggest an acute infarction. Nohemorrhagic focus of susceptibility. Preserved cowart-white matterdifferentiation. The sellar, callosal, pineal, and craniovertebraljunction regions appear within normal limits. There is no extra-axial collection. The ventricles are normal in size. Thebasal cisterns appear normal. The proximal intracranial arterial flowvoids have a normal appearance. Orbital contents appear normal. Mildmucosal thickening involving the paranasal sinuses. Trace right mastoidair cell fluid. The left mastoid air cells are well aerated. IMPRESSION: Normal appearance of the brain. Ordered By: NYLA GREER Interpreted By: Cooper Kraft MD, 09/28/2024 9:47 AM us Nyla Greer MD MRI Final Result * CT HEAD WO CON (09/28/2024 1:30 AM CDT) Only the most recent of2 resultswithin the time period is included. Anatomical Region Laterality Modality Head Computed Tomogra phy 09/28/2024 1:37 AM CDT Impressions 09/28/2024 1:42 AM CDT IMPRESSION: Unchanged ill-defined small hypodensity within the right cerebellum. This is again nonspecific and as stated on the previous exam could be further evaluated with MRI of the brain. Referred By: Interpreted By: Kurtis Edwards MD, 09/28/2024 1:37 AM Narrative 09/28/2024 1:42 AM CDT [place] [address] EXAMINATION: CT HEAD WO CON CLINICAL HISTORY: Initial history of trauma from fall downstairs. Reason for this exam states possible artifact on previous head CT. COMPARISON: CT head 09/27/2024. TECHNIQUE: CT examination of the head without contrast was performed with axial images obtained. A radiation dose lowering technique was used for this procedure, which may include, but is not limited to, dose reduction technique, automated exposure control, the use of iterative reconstruction, ALARA (As Low As Reasonably Achievable) techniques, and Image Gently techniques. FINDINGS: There is no evidence of acute intracranial hemorrhage, abnormal extra-axial collections, intracranial mass effect, or midline shift. The ventricles and extra-axial/subarachnoid spaces are unremarkable. Unchanged ill-defined small hypodensity within the right cerebellum appearing unchanged from the previous head CT from approximately 3 hours prior. The calvarium is unremarkable. The visualized mastoid air cells, paranasal sinuses, and orbits are grossly unremarkable. Procedure Note Kurtis Edwards MD - 09/28/2024 [place] [id number] EXAMINATION: CT HEAD WO CON CLINICAL HISTORY: Initial history of trauma from fall downstairs. Reasonfor this exam states possible artifact on previous head CT. COMPARISON: CT head 09/27/2024. TECHNIQUE: CT examination of the head without contrast was performed withaxial images obtained. A radiation dose lowering technique was used forthis procedure, which may include, but is not limited to, dose reductiontechnique, automated exposure control, the use of iterativereconstruction, ALARA (As Low As Reasonably Achievable) techniques, andImage Gently techniques. FINDINGS: There is no evidence of acute intracranial hemorrhage, abnormalextra-axial collections, intracranial mass effect, or midline shift. Theventricles and extra-axial/subarachnoid spaces are unremarkable. Unchangedill-defined small hypodensity within the right cerebellum appearingunchanged from the previous head CT from approximately 3 hours prior. Thecalvarium is unremarkable. The visualized mastoid air cells, paranasalsinuses, and orbits are grossly unremarkable. IMPRESSION: Unchanged ill-defined small hypodensity within the right cerebellum. Thisis again nonspecific and as stated on the previous exam could be furtherevaluated with MRI of the brain. Referred By: Interpreted By: Kurtis Edwards MD, 09/28/2024 1:37 AM Nyla Greer MD CT Final Result * (ABNORMAL) DRUG SCREEN RAPID (09/27/2024 11:55 PM CDT) AMPHETAMINE (U) NEGATIVE NEGATIVE 12:17 AM CDT [facility] BARBITURATES SCREEN (U) NEGATIVE NEGATIVE 09/28/2024 12:17 AM CDT [facility] BENZODIAZEPINES SCREEN (U) NEGATIVE NEGATIVE 09/28/2024 12:17 AM CDT [facility] CANNABINOIDS SCREEN (U) NEGATIVE NEGATIVE 09/28/2024 12:17 AM CDT [facility] COCAINE METABOLITES (U) NEGATIVE NEGATIVE 09/28/2024 12:17 AM CDT [facility] METHADONE (U) NEGATIVE NEGATIVE 09/28/2024 12:17 AM CDT [facility] OPIATE SCREEN (U) NEGATIVE NEGATIVE 025 12:17 AM CDT [facility] PHENCYCLIDINE PCP (U) NEGATIVE NEGATIVE 09/28/2024 12:17 AM CDT [facility] Comment: NOTE: RESULTS OF THIS DRUG SCREEN SHOULD BE USED FOR MEDICAL PURPOSES ONLY AND NOT FOR LEGAL OR EMPLOYMENT PURPOSES. POSITIVE RESULTS ARE NOT CONFIRMED. MEDICATIONS CONTAINING EPHEDRINE MAY CAUSE FALSE POSITIVE AMPHETAMINE CALL [phone], LAB, TO REQUEST CONFIRMATION TESTING. IF CREATININE IS <40 mg/dL. RECOLLECTION IS SUGGESTED. AMPHETAMINE- 500 NG/ML BARBITURATE- 200 NG/ML BENZODIAZEPINES- 200 NG/ML THC- 50 NG/ML COCAINE- 150 NG/ML METHADONE- 300 NG/ML OPIATE- 300 MG/ML PCP- 25 NG/ML CREATININE (U) 25.6(L) 28 - 217 MG/DL 09/28/2024 12:17 AM CDT [facility] URINE SPECIMEN / Unknown 09/27/2024 11:55 PM CDT Nyla Greer MD URINE ORDERABLES Lisa hernandez Result [facility] [address] [place] [address], * XR CHEST PORTABLE (09/27/2024 10:40 PM CDT) Anatomical Region Laterality Modality Chest Radiographic Jeanine ging 09/27/2024 10:5 7 PM CDT Impressions 09/27/2024 11:01 PM CDT IMPRESSION: 1. Moderate to large size retrocardiac hiatal hernia. 2. Mild atelectasis in bilateral lower lobes with no other acute pulmonary disease. Referred By: Interpreted By: Ladonna Bang MD, 09/27/2024 10:57 PM Narrative 09/27/2024 11:01 PM CDT [facility] [address] [place], [place] [address] EXAMINATION: XR Portable CXR, 1 View INDICATION: Trauma, fell down steps COMPARISON: CT chest, abdomen and pelvis with contrast 09/27/2024. FINDINGS: There is a moderate to large size retrocardiac hiatal hernia that is better seen on the comparison CT chest exam. night monitor leads overlie the chest and included upper abdomen. The cardiomediastinal silhouette is within normal limits. night monitor leads overlie the upper abdomen. Pulmonary vascularity is normal. There is mild atelectasis in bilateral lower lobes. Remaining lungs are clear with no acute infiltrate, consolidation, pneumothorax, or pleural effusion. No acute osseous abnormality. Procedure Note Ladonna Bang MD - 09/27/[address] [address] EXAMINATION: XR Portable CXR, 1 View INDICATION: Trauma, fell down steps COMPARISON: CT chest, abdomen and pelvis with contrast 09/27/2024. FINDINGS: There is a moderate to large size retrocardiac hiatal hernia that isbetter seen on the comparison CT chest exam. night monitor leadsoverlie the chest and included upper abdomen. The cardiomediastinalsilhouette is within normal limits. night monitor leads overlie theupper abdomen. Pulmonary vascularity is normal. There is mildatelectasis in bilateral lower lobes. Remaining lungs are clear with noacute infiltrate, consolidation, pneumothorax, or pleural effusion. Noacute osseous abnormality. IMPRESSION: 1. Moderate to large size retrocardiac hiatal hernia. 2. Mild atelectasis in bilateral lower lobes with no other acutepulmonary disease. Referred By: Interpreted By: Ladonna Bang MD, 09/27/2024 10:57 PM Nyla Greer MD GENERAL IMAGING Final Result * ECG 12 lead (09/27/2024 10:22 PM CDT) 09/27/2024 10:2 2 PM CDT Narrative [facility] - 09/28/2024 5:[address] 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: [id number] : 1970 Requested By: NYLA GREER Order Number: [id number] Reading : Jaz Hinton Measurements Intervals [place] Rate: 77 P: 53 ID: [id number] QRS: -20 QRSD: 110 T: 22 QT: 418 QTc: 475 Interpretive Statements SINUS RHYTHM POSSIBLE LEFT ATRIAL ENLARGEMENT [-0.1mV P WAVE IN V1/V2] Compared to ECG 09/01/2018 20:34:51 Intraventricular conduction delay no longer present us Nyla Greer MD ECG ORDERABLES Final Result [facility] * CT CHEST+ABD+PEL W CON (09/27/2024 10:14 PM CDT) Anatomical Region Laterality Modality Chest, Abdomen, Pelvis Computed Tomography 09/27/2024 10:2 0 PM CDT Impressions 09/27/2024 10:40 PM CDT IMPRESSION: 1. No acute traumatic injury identified in the chest, abdomen, or pelvis. 2. Large hiatal hernia with partial intrathoracic stomach. No evidence of complication. 3. Hepatomegaly. 4. Common bile duct dilated to 0.9 cm. This could be further evaluated with nonemergent MRCP. 5. Bilateral nonobstructing renal calculi measuring up to 0.4 cm. 6. Other chronic/nonurgent findings, as above. Referred By: Interpreted By: Trey Montero MD, 09/27/2024 10:20 PM Narrative 09/27/2024 10:40 PM [address]T [address] [address] INDICATION: Trauma, pain, altered mental status COMPARISON: None TECHNIQUE: CT images of the chest, abdomen, and pelvis were obtained following the administration of IV contrast. Radiation dose reduction technique utilized. FINDINGS: CHEST: Cardiac chambers within normal size limits. No significant pericardial effusion. Nonaneurysmal thoracic aorta within normal limits. No mediastinal, hilar, or axillary lymphadenopathy. No suspicious thyroid nodule. Esophagus within normal limits. Large hiatal hernia with partially intrathoracic stomach. No evidence of acute complication. Trachea and central airways are patent. No pneumothorax. No focal airspace consolidation. No pleural effusion. ABDOMEN/PELVIS: Hepatomegaly, measuring 19.0 cm. Patient motion degrades evaluation of the hepatic parenchyma. Probable benign simple cysts versus benign hemangiomata in the hepatic parenchyma, though assessment is limited; these can be further evaluated with nonemergent MRI if clinically indicated. Gallbladder within normal limits. Common bile duct is dilated, measuring up to 0.9 cm. Main portal vein, splenic vein, SMV, and SMA enhance. Scattered atherosclerosis of the abdominal and pelvic vasculature. No retroperitoneal lymphadenopathy. No evidence of bowel obstruction or inflammation. Physiologic peristalsis noted in the colon. 2.2 cm thin-walled fluid density cystic focus in contact with the wall of a loop of proximal jejunum, axial image 118 and coronal image 52; this could possibly represent an enteric duplication cyst, no evidence of peripheral enhancement to suggest acute inflammation. No free gas in the abdomen or pelvis. No mesenteric lymphadenopathy. Duodenum within normal limits. Pancreas within normal limits. Adrenal glands within normal limits. Kidneys enhance symmetrically. Bilateral nonobstructing renal calculi, measuring up to 0.4 cm on bilaterally. No hydronephrosis or hydroureter. Urinary bladder within normal limits for degree of distention. Lobulated contour of the uterus compatible with benign leiomyomata. Physiologic follicles present in the ovaries. No pelvic lymphadenopathy or significant free fluid. Incidental note of benign pelvic phleboliths. MSK: Pelvis is intact. Chronic degenerative changes of the sacroiliac joints. Chronic multilevel degenerative changes of the spine. No acute rib fracture. Sternum is intact. Visualized aspects of the clavicles and scapulae are intact. Cervical findings discussed separate report. Procedure Note Trey Montero MD - 09/27/[address] [address] INDICATION: Trauma, pain, altered mental status COMPARISON: None TECHNIQUE: CT images of the chest, abdomen, and pelvis were obtainedfollowing the administration of IV contrast. Radiation dose reductiontechnique utilized. FINDINGS: CHEST: Cardiac chambers within normal size limits. No significant pericardialeffusion. Nonaneurysmal thoracic aorta within normal limits. No mediastinal, hilar, or axillary lymphadenopathy. No suspicious thyroidnodule. Esophagus within normal limits. Large hiatal hernia with partiallyintrathoracic stomach. No evidence of acute complication. Trachea and central airways are patent. No pneumothorax. No focal airspaceconsolidation. No pleural effusion. ABDOMEN/PELVIS: Hepatomegaly, measuring 19.0 cm. Patient motion degrades evaluation of thehepatic parenchyma. Probable benign simple cysts versus benignhemangiomata in the hepatic parenchyma, though assessment is limited;these can be further evaluated with nonemergent MRI if clinicallyindicated. Gallbladder within normal limits. Common bile duct is dilated,measuring up to 0.9 cm. Main portal vein, splenic vein, SMV, and SMAenhance. Scattered atherosclerosis of the abdominal and pelvic vasculature. Noretroperitoneal lymphadenopathy. No evidence of bowel obstruction or inflammation. Physiologic peristalsisnoted in the colon. 2.2 cm thin-walled fluid density cystic focus incontact with the wall of a loop of proximal jejunum, axial image 118 andcoronal image 52; this could possibly represent an enteric duplicationcyst, no evidence of peripheral enhancement to suggest acute inflammation.No free gas in the abdomen or pelvis. No mesenteric lymphadenopathy. Duodenum within normal limits. Pancreas within normal limits. Adrenal glands within normal limits. Kidneys enhance symmetrically. Bilateral nonobstructing renal calculi,measuring up to 0.4 cm on bilaterally. No hydronephrosis or hydroureter. Urinary bladder within normal limits for degree of distention. Lobulatedcontour of the uterus compatible with benign leiomyomata. Physiologicfollicles present in the ovaries. No pelvic lymphadenopathy or significantfree fluid. Incidental note of benign pelvic phleboliths. MSK: Pelvis is intact. Chronic degenerative changes of the sacroiliac joints. Chronic multilevel degenerative changes of the spine. No acute rib fracture. Sternum is intact. Visualized aspects of the clavicles and scapulae are intact. Cervical findings discussed separate report. IMPRESSION: 1. No acute traumatic injury identified in the chest, abdomen, orpelvis. 2. Large hiatal hernia with partial intrathoracic stomach. No evidence ofcomplication. 3. Hepatomegaly. 4. Common bile duct dilated to 0.9 cm. This could be further evaluatedwith nonemergent MRCP. 5. Bilateral nonobstructing renal calculi measuring up to 0.4 cm. 6. Other chronic/nonurgent findings, as above. Referred By: Interpreted By: Trey Montero MD, 09/27/2024 10:20 PM us Nyla Greer MD CT Final Result * CT CERV SPINE WO CON (09/27/2024 10:14 PM CDT) Anatomical Region Laterality Modality Spine Computed Tomogra phy 09/27/2024 10:3 7 PM CDT Impressions 09/27/2024 10:40 PM CDT IMPRESSION: No CT evidence of acute cervical fracture or subluxation. Referred By: Interpreted By: Trey Montero MD, 09/27/2024 10:37 PM Narrative 09/27/2024 10:40 PM CDT [place] [address] INDICATION: Trauma COMPARISON: None TECHNIQUE: Nonenhanced CT images of the cervical spine. Radiation dose reduction technique utilized. FINDINGS: Nonenhanced CT of the cervical spine demonstrates reversal of normal cervical lordosis, likely attributable to patient positioning versus muscle spasm. No evidence of traumatic subluxation. Vertebral body heights are maintained. Normal alignment at the craniocervical junction. No CT evidence of acute fracture. Visualized skull base appears normal. Multilevel facet and uncovertebral hypertrophy. No significant spinal canal stenosis. Moderate bilateral foraminal stenosis at C5-C6, with milder bilateral foraminal stenosis at C6-C7. Visualized perivertebral soft tissues and lung apices exhibit no acute abnormality. Procedure Note Trey Montero MD - 09/27/2024 [place] [address] INDICATION: Trauma COMPARISON: None TECHNIQUE: Nonenhanced CT images of the cervical spine. Radiation dosereduction technique utilized. FINDINGS: Nonenhanced CT of the cervical spine demonstrates reversal of normalcervical lordosis, likely attributable to patient positioning versusmuscle spasm. No evidence of traumatic subluxation. Vertebral body heightsare maintained. Normal alignment at the craniocervical junction. No CTevidence of acute fracture. Visualized skull base appears normal. Multilevel facet and uncovertebral hypertrophy. No significant spinalcanal stenosis. Moderate bilateral foraminal stenosis at C5-C6, withmilder bilateral foraminal stenosis at C6-C7. Visualized perivertebral soft tissues and lung apices exhibit no acuteabnormality. IMPRESSION: No CT evidence of acute cervical fracture or subluxation. Referred By: Interpreted By: Trey Montero MD, 09/27/2024 10:37 PM Nyla Greer MD CT Final Result * COMPREHENSIVE METABOLIC PANEL (09/27/2024 9:48 PM CDT) [facility] GLUCOSE 97 70 - 99 MG/DL 09/27/2024 10:59 PM CDT [facility] BUN 7 7 - 18 MG/DL 09/27/2024 10:59 PM CDT [facility] CREATININE S/P/B 0.58 0.55 - 1.02 MG/DL 09/27/2024 10:59 PM CDT [facility] SODIUM S/P/B 136 136 - 145 MMOL/L 09/27/2024 10:59 PM CDT [facility] POTASSIUM S/P/B 3.7 3.5 - 5.1 MMOL/L 09/27/2024 10:59 PM CDT [facility] CHLORIDE S/P/B 107 97 - 115 MMOL/L 09/27/2024 10:59 PM CDT [facility] CO2 22.5 21 - 32 MMOL/L 09/27/2024 10:59 PM CDT [facility] CALCIUM S/P/B 8.6 8.5 - 10.1 MG/DL 09/27/2024 10:59 PM CDT [facility] BILIRUBIN TOTAL S/P/B 0.4 0.2 - 1.2 MG/DL 09/27/2024 10:59 PM CDT [facility] Comment: THIS ASSAY IS NOT RECOMMENDED FOR PATIENTS UNDERGOING TREATMENT WITH ELTROMBOPAG DUE TO THE POTENTIAL FOR FALSELY ELEVATED RESULTS. TOTAL PROTEIN S/P/B 6.5 6.4 - 8.2 G/DL 09/27/2024 10:59 PM CDT [facility] ALBUMIN S/P/B 3.4 3.4 - 5.0 G/DL 09/27/2024 10:59 PM CDT [facility] AST 22 15 - 37 U/L 09/27/2024 10:59 PM CDT [facility] ALT 22 14 - 55 U/L 09/27/2024 10:59 PM CDT [facility] ALKALINE PHOSPHATASE S/P/B 70 50 - 136 U/L 09/27/2024 10:59 PM CDT [facility] ANION GAP 6.5 2 - 10 MMOL/L 09/27/2024 10:59 PM CDT [facility] BUN CREATININE RATIO 12.0 6 - 26 09/27/2024 10:59 PM CDT [facility] A/G RATIO 1.1 1.0 - 2.0 RATIO 09/27/2024 10:59 PM CDT [facility] GFR ESTIMATE >90 >90 ML/MIN/1.7 3 M2 09/27/2024 10:59 PM CDT [facility] Comment: NOTE: eGFR is not calculated for patients <18 years of age or gender unknown. This is an estimated GFR calculation using the new CKD EPI creatinine equation without race and so does not require a correction factor for race. This estimated GFR should not be used for calculating drug doses. 09/27/2024 9:48 PM CDT us Nyla Greer MD LABORATORY Final Result [facility] [address] [place] [address], [place] [phone] * (ABNORMAL) CBC W/DIFF AUTOMATED (09/27/2024 9:48 PM CDT) [facility] Signature WBC 9.28 4.5 - 11.0 x10'3/uL 09/27/2024 10:04 PM CDT [facility] RBC 4.32 4.20 - 5.40 x10'6/uL 09/27/2024 10:04 PM CDT [facility] HGB 13.9 12.0 - 16.0 G/DL 09/27/2024 10:04 PM CDT [facility] HCT 42.0 38.0 - 48.0 % 09/27/2024 10:04 PM CDT [facility] MCV 97.2 81.0 - 99.0 FL 09/27/2024 10:04 PM CDT [facility] MCH 32.2(H) 27.0 - 31.0 PG 09/27/2024 10:04 PM CDT [facility] MCHC 33.1 32.0 - 36.0 G/DL 09/27/2024 10:04 PM CDT [facility] RDW 14.4 11.5 - 14.5 % 09/27/2024 10:04 PM CDT [facility] [facility] PLT 269 130 - 400 x10'3/uL 09/27/2024 10:04 PM CDT [facility] MPV 9.1(L) 9.3 - 12.2 FL 09/27/2024 10:04 PM CDT [facility] DIFFERENTIAL TYPE AUTOMATED DIFFERENTIAL 09/27/2024 10:04 PM CDT [facility] NEUTROPHILS % 61.9 % 09/27/2024 10:04 PM CDT [facility] LYMPHOCYTES % 28.6 % 09/27/2024 10:04 PM CDT [facility] MONOCYTES % 6.7 % 09/27/2024 10:04 PM CDT [facility] EOSINOPHILS 2.0 % 09/27/2024 10:04 PM CDT [facility] BASOPHILS 0.3 % 09/27/2024 10:04 PM CDT [facility] IMMATURE GRANS % 0.5 % 09/28/19 10:04 PM CDT [facility] ABS. NEUTROPHILS 5.74 1.80 - 7.70 x10'3/uL 09/27/2024 10:04 PM CDT [facility] ABS. LYMPHOCYTES 2.65 1.00 - 4.80 x10'3/uL 09/27/2024 10:04 PM CDT [facility] ABS. MONOCYTES 0.62 0.24 - 0.86 x10'3/uL 09/27/2024 10:04 PM CDT [facility] ABS. EOSINOPHILS 0.19 0.04 - 0.36 x10'3/uL 09/27/2024 10:04 PM CDT [facility] ABS. BASOPHILS 0.03 0.01 - 0.08 x10'3/uL 09/27/2024 10:04 PM CDT [facility] ABS. IMMATURE GRANULOCYTES 0.05 0.00 - 0.49 x10'3/uL 09/27/2024 10:04 PM CDT [facility] 09/27/2024 9:48 PM CDT us Nyla Greer MD LABORATORY Final Result [facility] [address] [place] [address], [place] [phone] * (ABNORMAL) ETHANOL (09/27/2024 9:48 PM CDT) ALCOHOL S/P/B 0.305(HH) <0.003 G/DL 09/27/2024 10:59 PM CDT [facility] Comment: Critical Result(s) Called at: 22:58:01 on 09/27/2024 by: MARQUIS ROSENBERG to and read back by:DEENA HARRIS 09/27/2024 9:48 PM CDT Nyla Greer MD LABORATORY Final Result [facility] [address] [place] [address], from Last 3 Mon[address] [place] [address] [place] [address] Care Teams Cyber Incident Handler Relationship Specialty Start Date End Date Inez New PA [address] [facility] [address] [place] [id number] PCP - General PHYSICIAN CHILDREN'S MINISTER 05/26/21
--- OUTSIDE RECORDS SUMMARY | 2024-10-03 09:47 | XMS_ITS ---
Author Organization [facility] [employer] Address [address] [facility] [address] [place] [address] Care Team Providers Care Manager Urology Name Role Phone Rachell New PA-C Primary Care Provider Unav ailable BhavinKacy hancock Unavailable [phone] Ale Benedict Unavailable [phone] REASON FOR VISIT Confirmed, I am sick Medications Medication SIG (Take, Route, Frequency, Duration) Notes Start Date End Date Status Propranolol HCl 10 MG TAKE 1 TABLET BY MOUTH TWICE A DAY ON EMPTY STOMACH FOR 30 DAYS for 90 Active Umbarger Carbonate ER 300 mg 1 tablet at bedtime oral daily for 28 days Active FLUoxetine HCl 40 MG 1 capsule Orally Once a day for 28 days Active lamoTRIgine 200 mg 1 tablet oral twice a day for 28 days Active Dexilant 60 MG Oral 11/22/2023 Not- Taking Ingrezza 80 MG 1 capsule oral daily for 28 days Not-Taking clonazePAM 0.5 mg 1 tablet oral twice a day for 28 days 06/02/2024 Not-Taking Ingrezza 80 mg 1 capsule oral daily for 28 days Not-Taking Nebivolol HCl 5 MG TAKE 1 TABLET (5 MG TOTAL) BY MOUTH DAILY. Oral for 30 Days Active FLUoxetine HCl 40 MG 1 capsule Orally Once a day for 28 days Active HYDROcodone-Acetamino phen 5-325 MG Oral 11/22/2023 Not-Taking Cyclobenzaprine HCl 10 MG Oral 11/22/2023 Not-Taking ProAir HFA 108 (90 Base) MCG/ACT Inhalation 11/22/2023 Active Symbicort 160-4.5 MCG/ACT Inhalation 11/22/2023 Active Diclofenac Sodium 1% Transdermal 11/22/2023 Not-Taking Rosuvastatin Calcium 20 MG Oral 11/22/2023 Active Meloxicam 15 MG Oral 11/22/2023 Act inder Naproxen 375 MG Oral 11/22/2023 Not -Taking Omeprazole 40 MG Oral 11/22/2023 Ac tive Fluticasone Propionate Diskus 50 MCG/ACT Inhalation *Reorder from [facility] for eRx and Interaction Alerts* 11/22/2023 Active Cholecalciferol 25 MCG (1000 UT) Oral 11/22/2023 Active Breo Ellipta 200-25 MCG/INH Inhalation 11/22/2023 Active Cetirizine HCl 10 MG Oral 11/22/2023 Active Albuterol Sulfate (2.5 MG/3ML) 0.083% Inhalation 11/22/2023 Active metFORMIN HCl unkown mg Active lamoTRIgine 200 mg TAKE 1 TABLET BY MOUTH TWICE A DAY for 28 Active FLUoxetine HCl 20 MG 1 capsule in the morning Oral daily for 28 days Active Social History Tobacco Use: Social History Observation Description Date Details (start date - stop date) Current Smoker NA - NA Sex Assigned At : Social History Observation Description Sex Assigned At Female Tobacco Control (Standard) Question Answer Notes Tobacco use: Current smoker How often do you smoke cigarettes? Every day How many cigarettes a day do you smoke? 6-10 How soon after you wake up d o you smoke your first cigarette? 6-30 minutes Are you interested in quitting? Thinking about q uitting Section Notes: Drinks ETOH on weekends. Den ies dependence Encounters Encounter Location Date [facility] [address] [address] 08/28/2024 Ale Ramirez Borderline personality disorder F60.3 ; Bipolar disorder, current episode depressed, severe, without psychotic features F31.4 ; Post-traumatic stress disorder, chronic F43.12 and Generalized anxiety disorder F41.1 Assessments Encounter Date Diagnosis (ICD Code) Assessment Notes Treatment Notes Treatment Clinical Notes Section Notes 08/28/2024 Borderline personality disorder (ICD-10 - F60.3) 08/28/2024 Bipolar disorder, current episode depressed, severe, without psychotic features (ICD-10 - F31.4) 08/28/2024 Post-traumatic stress disorder, chronic (ICD-10 - F43.12) 08/28/2024 Generalized anxiety disorder (ICD-10 - F41.1) 08/28/2024 Other Mental Health and Stress - Assessment: The patient is experiencing significant stress due to family issues, particularly with her son Jcakson and his substance abuse problems. This may be contributing to her overall mental health and physical symptoms. - Plan: - Encourage the patient to seek support from friends, family, or support groups to help manage stress. Skin Condition (Possible Rosacea) - Assessment: The patient reports facial breakouts and is concerned about rosacea or lupus. - Plan: - Proceed with the scheduled rn documentation specialist appointment on the for further evaluation and management. Weight Loss, Poor Appetite, and Vomiting - Assessment: The patient reports losing weight, not eating much, experiencing dry heaves, and frequent vomiting. - Plan: - Monitor the patient's weight and nutritional intake. - Consider referral to a vat overhauler for dietary guidance and support. - Evaluate for potential gastrointestinal issues or other underlying causes of vomiting. Each section addresses a specific problem area and outlines a corresponding plan for treatment and support. Plan Of Treatment Next Appt Details Follow Up: 2 Weeks, Reason: Provider Name:Ale Ramirez, 10/15/2024 09:00:00 AM, [address], [address], [address], Provider Name:Ale Ramirez, 11/16/2024 08:00:00 AM, [address], [address], [address], Provider Name:Kacy sosa, 11/19/2024 09:00:00 AM, [address], [address], [address], Provider Name:Ale Ramirez, 12/20/2024 08:00:00 AM, [address], [address], [address], Progress Notes * NGUYỄN RUCKER:1970 ( 54 yo F)Acc No.[id number]:08/28/2024 Patient: JEREMIAH MERCADO Provider: Sebastian RAMIREZ LCSW :1970 A ge:54 Y S ex:Female Date:08/28/2024 Address:[address] [place], [place] [id number] Pcp:Rachell New PA-C Check In:08:13 AM CSTCheck O ut:09:01 AM ASSISTANT SUPERINTENDENT FOR CURRICULUM Data: * Time Tracker: * Date Start Time End Time Duration User Type Captured By Mode Notes 08/28/2024 08:13 AM 09:00 AM 00:47:00 Therapist Maria Antonia Benedict Manual * Chief Complaints: * 1 . Confirmed. 2. I am sick . * HPI: F unctional Status: Pt was calling from her home in [place] for tele appt. Jeremiah reports a doctor report of a recent mild myocardial infarction, confirmed by serial cardiac enzyme tests at the hospital. She experiences ongoing symptoms including headaches, dizziness, and paresthesia in her fingers and toes. The patient also notes fluctuating blood pressure, for which she has been prescribed additional antihypertensive medication, now taking three beta-blockers. She reports persistent left-sided tingling sensations and is concerned about the possibility of having lupus. The patient describes significant gastrointestinal issues, including weight loss, and frequent emesis, mostly non-productive. She has undergone an upper endoscopy with biopsy of the throat, results pending. The patient's fasting blood glucose was 107 mg/dL. Regarding skin issues, the patient reports symptoms consistent with rosacea, with a facial rash that started on the left side, progressed to her nose, and then to the right side. The patient describes mood disturbances, feeling bluesy and lacking motivation. She reports significant psychosocial stressors related to family members with substance abuse issues, particularly her son Jackson. She reports minimal alcohol consumption, noting that drinking exacerbates her symptoms. Regarding her respiratory health, the patient has a history of COPD and reports completing a sleep study, awaiting CPAP therapy. She also mentions balance issues and occasional vertigo. Socially, the patient lives with her partner Ant, describing their relationship as more like roommates. She is under significant stress due to her son Jackson's substance abuse and health issues. This note is transcribed using speech recognition software. It is an accurate representation of the visit with the patent. Efforts have been made to correct errors, but some inaccuracies may remain. * Behavioral History: P ast psychiatric Hospitalization:Yes. I have been hospitalized 8-9 times for suicidal ideation after self injury. W hen and where was the last admission?:[facility] I am not sure, it has been while . H istory of suicidal attempt?:Yes. I have overdosed and had my stomach pumped x2 It has been in my 30's T ype of previous suicidal attempt:Overdose. * Medical History: * Surgical History: S inus surgery , Other . * Family History: S on: ADHD. M other: diagnosed with Other malignant neoplasm without specification of site. 2 sister(s) . 2 son(s) . . I grew up really poor. My dad never spoke to me. He when I was 20. He was a terrible alcoholic. I could not have friends over. Pt had kids when she was 20 and 22 years old. * Social History: T obacco Use: T obacco Control (Standard) T obacco use: C urrent smoker, H ow often do you smoke cigarettes? E very day, H ow many cigarettes a day do you smoke? 6 -10, H ow soon after you wake up do you smoke your first cigarette? 6 -30 minutes, A re you interested in quitting? T hinking about quitting. D rinks ETOH on weekends. Denies dependence. [...] Inhalation , Notes to Pharmacist: *Reorder from [facility] for eRx and Interaction Alerts*, Taking Omeprazole [...] capsule Orally Once a day , Taking Umbarger Carbonate ER 300 mg Tablet Extended Release [...] reviewed and reconciled with the patient * Vitals: * Examination: G eneral Examination: M ental Status Examination: Jeremiah appears stressed and overwhelmed with personal issues, particularly concerning family members Jackson and Davy. She reports feeling 'bluesy' and unmotivated. Jeremiah expressed concerns about her personal appearance and relationship issues. Physical Examination: Dermatological: Jeremiah reports a facial breakout, possible rosacea, with progression from the left side to the nose and right side. Neurological: Reports tingling sensation on the left side, dizziness, and balance issues, requiring support against sparrow. Tingling also noted in fingers and toes. Gastrointestinal: Reports frequent vomiting, mostly dry heaves, and reduced appetite with minimal food intake, leading to weight loss. Cardiovascular: History of a mild heart attack, currently experiencing headaches. Diagnostic Test Results and Labs: Blood Work: Ongoing, with recent checks every 2 hours for heart monitoring; specific dates and trends N/A. Fasting blood sugar documented as 107 on an unspecified recent date. Imaging and Other Tests: CAT scan and EKG performed, specific dates N/A; mild heart attack noted. Scope with biopsy from throat conducted recently, results pending with expected date N/A. Sleep study completed, awaiting provision of a machine, specific dates N/A. Assessment: * Assessment: 1. B ipolar disorder, current episode depressed, severe, without psychotic features - F31.4 (Primary) 2 . B orderline personality disorder - F60.3 3 . P ost-traumatic stress disorder, chronic - F43.12 4 . G eneralized anxiety disorder - F41.1 Plan: * Behavioral Health Treatment Plan: I mported Date:08/28/2024 08:24 AM Imported By:Ale Benedict ServicesBarriersPoor Family supportStigma: Negative attitudes and prejudices [...] Before Acting in the Adult Psychotherapy Homework Rotary Lithographic Press Operator by Jas). Start Date Target Date Assigned To Status Open * Assist the client in developing a list of specific dissatisfactions he/she is currently experiencing, such as feelings of helplessness, hopelessness, or suicidal ideation. Start Date Target Date Assigned To Status Open * Treatment: * Procedure Codes: 9 0834 PSYCHOTHERAPY W/PATIENT 45 MINUTES, Modifiers: 95 , G9902 Pt scrn tbco and id as user * Preventive Medicine: Counseling: C ommunication to patient: C ounseled the Patient on tobacco use; cessation provided D ate, C ounseled the Patient on smoking cessation; education provided 08/28/2024 Date, C ounseled the Patient on smoking effects; education provided D ate. S moking Cessation counseling done Discuss the importance of quitting smoking. * Follow Up: 2 Weeks * Billing Information: * Visit Code: * Procedure Codes: 77370 PSYCHOTHERAPY W/PATIENT 45 MINUTES. Modifiers: 95 G9902 Pt scrn tbco and id as user. * STANT SUPERINTENDENT FOR CURRICULUM Sign off status: Completed Signatures: No Ad Hoc Signature Added true * Provider: Sebastian RAMIREZ LCSW Date: 0 08/28/2024 Generated for Verna callahan/Katia/Avila on: 0 10/03/2024 09:47 AM CDT
--- OUTSIDE RECORDS SUMMARY | 2024-10-03 09:47 | XMS_ITS | Encounter Summary ---
Author Organization [facility] Healthcare Address [address] [place] [address] Care Team Providers Care Ditch Worker Name Role Phone Inez New Primary Care Provider + [phone] Candido Guerin MD Unavailable [phone] Anthony Diez MD Unavailable [phone] Encounter Details Date Type Department Care Team (Late st Contact Info) Description 09/28/2024 Telephone [facility] Family Medicine [address] [place] [address] Inez New PA [address] [place] [address] Social History Tobacco Use Types Packs/Day [...] on file Legal 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 Recommend MRCP -- this is an image that will evaluate the liver and duct system in the area. Where would she like this done? * Telephone Encounter - Romy Hobbs LPN - 10/01/2024 9:06 AM CDT Pt responded to makeenat message Chip redd but it will pass with marisol Houserngryan that in the report it said I had an enlarged liver and something about my bile. Please review imaging from ER visit and advise. * Telephone Encounter - Romy Hobbs LPN - 10/01/2024 8:50 AM CDT Sent pt mychart message to check on her. * Telephone Encounter - Jody Méndez - 09/28/2024 1:26 PM CDT Pt was seen at [facility] ER on 09/27/24 for: Fall See Attached Notes Staff will f/u with pt documented in this encounter Plan of Treatment Not on file documented as of this encounter Visit Diagnoses Not on filedocumented in this encounter Care Teams Ditch Worker Relationship Specialty Start Date End Date Inez New PA [address] [place] [address] PCP - General 09/14/17 Candido Guerin MD [address] [place] [address] Consulting Physician Gastroenterology 05/04/23 Anthony Diez MD [address] [place] [address] Consulting Physician Rheumatology 09/18/24 documented as of this encounter
--- OUTSIDE RECORDS SUMMARY | 2024-10-03 09:47 | XMS_ITS | Encounter Summary ---
Author Organization [facility] Healthcare Address [address] [place] [address] Care Team Providers Care Spanish Tutor Name Role Phone Inez New Primary Care Provider [phone] Candido Guerin MD Unavailable [phone] Anthony Diez MD Unavailable [phone] Reason for Referral * MRI/CAT/PET Scan (Routine) - Pending Review Specialty Diagnoses / Procedures Referred By Barb watt Referred To Contact Diagnoses Enlarged liver Bile duct abnormality Procedures MRI Abdomen MRCP W WO Contrast Incl 3D Inez New PA [address] [place] [address] Phone: tel: fax: External Order Referral ID Status Reason Start Date Expiration Date V isits Requested Visits Authorized [id number] Pending Review 10/02/2024 11/01/2025 1 1 Encounter Details Date Type Department Care Team (Late st Contact Info) Description 10/02/2024 Orders Only [facility] Family Medicine [address] [place] [address] Inez New PA [address] [place] [address] Enlarged liver (Primary Dx); Bile duct abnormality Social History Tobacco Use Types Packs/Day Years [...] on file 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 Gender Identity Not on file Sexual Orientation Not on file Occupation Industry Job Start Date Job End Date Disabled Not on file Not on file Not on file documented as of this encounter Progress Notes * Romy Hobbs LPN - 10/02/2024 3:45 PM CDT Order placed per PCP documented in this encounter Plan of Treatment Scheduled Orders Name Type Priority Associated Diagnoses Orde r Schedule MRI Abdomen MRCP W WO Contrast Incl 3D Imaging Schedule Routine, Read Routine (OP Routine) Enlarged liver Bile duct abnormality Expected: 10/02/2024, Expires: 10/02/2025 documented as of this encounter Visit Diagnoses Diagnosis Enlarged liver- Primary Hepatomegaly Bile duct abnormality documented in this encounter Care Teams Spanish Tutor Relationship Specialty Start Date End Date Inez New PA [address] [place] [address] PCP - General 09/14/17 Candido Guerin MD [address] [address] Consulting Physician Gastroenterology 05/04/23 Anthony Diez MD [address] [place] [address] Consulting Physician Rheumatology 09/18/24 documented as of this encounter
--- OUTSIDE RECORDS SUMMARY | 2024-10-03 09:47 | XMS_ITS | Encounter Summary ---
Author Organization [facility] Care Team Providers Care Senior Information Security Consultant Name Role Phone Inez New Primary Care Provider [phone] Candido Guerin MD Unavailable [phone] Anthony Diez MD Unavailable [phone] Encounter Details Date Type Department Care Team (Latest Contact Info) Description 09/26/2015 Orders Only [facility] ProviderVishal MD [address] [place], [place] [id number] Social History Tobacco Use Types Packs/Day Years Used Date Smoking Tobacco: Never Assessed Comments Unknown Sex and Gender Information Value Date Recorded Sex Assigned at Not on file Legal 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
--- OUTSIDE RECORDS SUMMARY | 2024-10-03 09:47 | XMS_ITS | Encounter Summary ---
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
--- OUTSIDE RECORDS SUMMARY | 2024-10-03 09:47 | XMS_ITS | Encounter Summary ---
Author Organization [facility] Healthcare Address [address] [place] [address] Care Team Providers Care Emergency Communications Officer Name Role Phone Inez New Primary Care Provider + [phone] Candido Guerin MD Unavailable [phone] Anthony Diez MD Unavailable Encounter Details Date Type Department Care Team (Late st Contact Info) Description 09/04/2024 Results Follow-Up [facility] Medical Group Family Medicine [address] [place] [address] Inez New PA [address] [address] Social History Tobacco Use Types Packs/Day [...] on file 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 Gender Identity Not on file Sexual Orientation Not on file Occupation Industry Job Start Date Job End Date Disabled Not on file Not on file Not on file documented as of this encounter Plan of Treatment Not on file documented as of this encounter Visit Diagnoses Not on filedocumented in this encounter Care Teams Emergency Communications Officer Relationship Specialty Start Date End Date Inez New PA [address] [place] [address] PCP - General 09/14/17 Candido Guerin MD [address] [place] [address] Consulting Physician Gastroenterology 05/04/23 Anthony Diez MD [address] [place] [address] Consulting Physician Rheumatology 09/18/24 documented as of this encounter
--- OUTSIDE RECORDS SUMMARY | 2024-10-03 09:47 | XMS_ITS | Encounter Summary ---
Author Organization [facility] Care Team Providers Care Mobile Designer Name Role Phone Inez New Primary Care Provider [phone] Candido Guerin MD Unavailable [phone] Anthony Diez MD Unavailable [phone] Encounter Details Date Type Department Care Team (Latest Contact Info) Description 10/07/2017 Orders Only [facility]IN[facility] ProviderVishal MD [address] [place] [id number] Social History Tobacco Use Types Packs/Day Years Used Date Smoking Tobacco: Never Assessed Comments Unknown Sex and Gender Information Value Date Recorded Sex Assigned at Not on file Legal Sex Female 4:54 AM [employer] Gender Identity Not on file Sexual Orientation [...] documented as of this encounter Care Teams Mobile Designer Relationship Specialty Start Date End Date [place] [address] [place] [address] PCP - General 09/14/17 Candido Guerin MD [address] [place] [address] Consulting Physician Gastroenterology 05/04/23 Anthony Diez MD [address] [place] [address] Consulting Physician Rheumatology 09/18/24 documented as of this encounter
--- OUTSIDE RECORDS SUMMARY | 2024-10-03 09:47 | XMS_ITS | Clinical Summary ---
Author Organization [facility] [place] [facility] [address] [facility] Address [address] [place] [address] Care Team Providers Care Warp Doffer Name Role Phone Inez New Primary Care Provider [phone] Candido Guerin MD Unavailable [phone] Anthony Diez MD Unavailable [phone] Allergies No known active allergies Medications magnesium [...] 08/26/2024 Assessment & Plan (08/26/2024 4:47 PM GEOSPATIAL TECHNOLOGIST): This is a significant, separately identifiable problem [...] 08/26/2024 Assessment & Plan (08/26/2024 4:46 PM GEOSPATIAL TECHNOLOGIST): Encouraged healthy lifestyle, good nutrition and exercise. Encouraged Calcium and Vitamin D and weight bearing exercise for bone health. Reviewed immunizations Reviewed age appropirate screenings. Hypertension associated with diabetes 08/15/2024 Assessment & Plan (08/26/2024 4:38 PM GEOSPATIAL TECHNOLOGIST): Blood pressure still isn't perfectly controlled. Continue with the lisinopril 20. She has not been taking the propranolol so will switch to Bystolic 5 for a q.d. dosing and see how she does. Call in a week with readings. BMI 40.0-44.9, adult 06/11/2024 Assessment & Plan (08/15/2024 10:04 AM GEOSPATIAL TECHNOLOGIST): Discussed the patient's BMI. The BMI is above average. BMI management plan is completed. BMI Follow-up includes: nutrition counseling, exercise counseling and education provided. Assessment & Plan (08/01/2024 11:21 AM GEOSPATIAL TECHNOLOGIST): Discussed the patient's BMI. The BMI is above average. BMI management plan is completed. BMI Follow-up includes: nutrition counseling, exercise counseling and education provided. Assessment & Plan (06/11/2024 12:16 PM GEOSPATIAL TECHNOLOGIST): Discussed the patient's BMI. The BMI is above average. BMI management plan is completed. BMI Follow-up includes: nutrition counseling, exercise counseling and education provided. Elevated TSH 03/17/2024 Assessment & Plan (03/18/2024 8:08 PM CDT): Check labs Abnormal thyroid screen (blood) 03/17/2024 Type 2 diabetes mellitus wit hout complication, without long-term current use of insulin 03/17/2024 Assessment & Plan (08/26/2024 4:37 PM GEOSPATIAL TECHNOLOGIST): Stressed importance of continued A1c control to minimize the lobsterman effects of diabetes. Bring accuchecks to office when instructed to do so. Check A1c about every 3-6 months. Take medication as prescribed. Get annual eye exam. Encouraged GLENDY/Statin if able to tolerate. Encouraged weight control and encouraged diabetic diet and exercise. Continue with metformin 500 el A1c is tightly controlled at 5.8 Assessment & Plan (08/13/2024 1:18 PM GEOSPATIAL TECHNOLOGIST): Stressed importance of continued A1c control to minimize the lobsterman effects of diabetes. Bring accuchecks to office when instructed to do so. Check A1c about every 3-6 months. Take medication as prescribed. Get annual eye exam. Encouraged GLENDY/Statin if able to tolerate. Encouraged weight control and encouraged diabetic diet and exercise. A1c is nicely controlled at 5.9. Continue metformin 500 mg Assessment & Plan (06/11/2024 12:15 PM GEOSPATIAL TECHNOLOGIST): Stressed importance of continued A1c control to minimize the lobsterman effects of diabetes. Bring accuchecks to office [...] Discussed with patient at length diabetes, pathogenesis, lobsterman sequela, end organ damage, diet/exercise/weight loss, and [...] feet on a regular basis to avoid lobsterman problems. Offered referral to recording engineer. Start metformin 500 mg 1 tablet daily [...] referral Assessment & Plan (09/07/2023 10:34 PM GEOSPATIAL TECHNOLOGIST): Ears are clear. Suspect eustachian tube dysfunction. Recommend Flonase, mucinex and antihistamine. If symptoms persist, may need ENT referral. Morbid obesity 07/22/2022 Assessment & Plan (08/26/2024 4:37 PM GEOSPATIAL TECHNOLOGIST): Discussed the patient's BMI. The BMI is above average. BMI management plan is completed. BMI Follow-up includes: nutrition counseling, exercise counseling and education provided. Assessment & Plan (08/01/2024 11:22 AM GEOSPATIAL TECHNOLOGIST): Discussed the patient's BMI. The BMI is above average. BMI management plan is completed. BMI Follow-up includes: nutrition counseling, exercise counseling and education provided. Assessment & Plan (06/11/2024 12:15 PM GEOSPATIAL TECHNOLOGIST): Discussed the patient's BMI. The BMI is above average. BMI management plan is completed. BMI Follow-up includes: nutrition counseling, exercise counseling and education provided. Assessment & Plan (03/18/2024 8:06 PM CDT): Discussed the patient's BMI. The BMI is above average. BMI management plan is completed. BMI Follow-up includes: nutrition counseling, exercise counseling and education provided. Assessment & Plan (09/07/2023 10:31 PM GEOSPATIAL TECHNOLOGIST): Discussed the patient's BMI. The BMI is above average. BMI management plan is completed. BMI Follow-up includes: nutrition counseling, exercise counseling and education provided. Patient has an obesity-related condition (not limited to: hypertension, obstructive sleep apnea, osteoarthritis, hyperlipidemia, diabetes, etc.). Therefore, morbid obesity may be documented for patients with a BMI between 35.00-39.99. Assessment & Plan (05/21/2023 3:46 PM GEOSPATIAL TECHNOLOGIST): Discussed the patient's BMI. The BMI is above average. BMI management plan is completed. BMI Follow-up includes: nutrition counseling, exercise counseling and education provided. Patient has an obesity-related condition (not limited to: hypertension, obstructive sleep apnea, osteoarthritis, hyperlipidemia, diabetes, etc.). Therefore, morbid obesity may be documented for patients with a BMI between 35.00-39.99. Assessment & Plan (07/22/2022 2:01 PM GEOSPATIAL TECHNOLOGIST): Discussed the patient's BMI. The BMI is above average. BMI management plan is completed. BMI Follow-up includes: nutrition counseling, exercise counseling and education provided. Patient has an obesity-related condition (not limited to: hypertension, obstructive sleep apnea, osteoarthritis, hyperlipidemia, diabetes, etc.). Therefore, morbid obesity may be documented for patients with a BMI between 35.00-39.99. Symptomatic anemia 05/28/2022 Assessment & Plan (09/07/2023 10:29 PM GEOSPATIAL TECHNOLOGIST): Known anemia. Has had transfusion. Continue to [...] (09/26/2020 8:15 PM CDT): Continue per Dr. Guajadro Assessment & Plan (06/14/2020 5:55 PM GEOSPATIAL TECHNOLOGIST): Refer back to Ortho. Offered PT. She [...] 09/11/2019 Assessment & Plan (06/11/2024 12:15 PM GEOSPATIAL TECHNOLOGIST): Mammogram order provided Assessment & Plan (08/23/2021 9:43 PM GEOSPATIAL TECHNOLOGIST): Mammogram order provided Assessment & Plan (09/26/2020 8:30 PM CDT): Mammogram order provided Assessment & Plan (09/11/2019 9:21 AM CDT): Mammogram order provided Sciatica of right side 06/17/2019 Assessment & Plan (06/17/2019 6:14 PM GEOSPATIAL TECHNOLOGIST): Voltaren gel Exercise/Start PT Followup if sxs worsen or don't improved. Vertigo 02/28/2019 Assessment & Plan (03/18/2024 8:06 PM CDT): Uses meclizine p.r.n. with good results Assessment & Plan (09/26/2020 8:29 PM CDT): antivert prn Assessment & Plan (03/15/2020 11:09 AM CDT): Persitent vertigo. 02/2020 CT head was essentially negative. She has finally agreed to vestibular therapy. Will still change neurology referral from [place] to [place] as patient able to arranage transportation easier. [...] 09/2018 Assessment & Plan (08/26/2024 4:36 PM GEOSPATIAL TECHNOLOGIST): Encouraged patient to follow low fat/low chol diet like the Mediterranean diet. Increase good fats in the diet. Increase exercise. Monitor labs as needed. Continue Crestor Assessment & Plan (08/13/2024 1:17 PM GEOSPATIAL TECHNOLOGIST): Encouraged patient to follow low fat/low chol diet like the Mediterranean diet. Increase good fats in the diet. Increase exercise. Monitor labs as needed. Continue Crestor Assessment & Plan (06/11/2024 11:51 AM GEOSPATIAL TECHNOLOGIST): Stressed importance of continued A1c control to minimize the skilled nursing effects of diabetes. Bring accuchecks to office [...] 5.9. Tolerating the metformin without difficulty Continue [facility] 20 Assessment & Plan (03/18/2024 8:04 PM CDT): Stressed importance of continued A1c control to minimize the lobsterman effects of diabetes. Bring accuchecks to office [...] Crestor Assessment & Plan (09/07/2023 10:30 PM GEOSPATIAL TECHNOLOGIST): Encouraged patient to follow low fat/low chol diet like the Mediterranean diet. Increase good fats in the diet. Increase exercise. Monitor labs as needed. Continue with Crestor Assessment & Plan (05/21/2023 3:44 PM GEOSPATIAL TECHNOLOGIST): Encouraged patient to follow low fat/low chol diet like the Mediterranean diet. Increase good fats in the diet. Increase exercise. Monitor labs as needed. Continue Crestor Assessment & Plan (07/22/2022 1:49 PM GEOSPATIAL TECHNOLOGIST): Encouraged patient to follow low fat/low chol diet like the Mediterranean diet. Increase good fats in the diet. Increase exercise. Monitor labs as needed. Continue Crestor Assessment & Plan (08/23/2021 9:42 PM GEOSPATIAL TECHNOLOGIST): Encouraged patient to follow fat/low chol diet [...] 12/04/2018 Assessment & Plan (06/11/2024 12:15 PM GEOSPATIAL TECHNOLOGIST): Encouraged smoking cessation. Discussed 3 minutes. Reviewed options for assistance with cessation. Reviewed lobsterman sequela associated with smoking. Pt declines assistance at this time but may contact the office at anytime for further help as they desire. Assessment & Plan (03/18/2024 8:05 PM CDT): Encouraged smoking cessation. Discussed 3 minutes. Reviewed options for assistance with cessation. Reviewed skilled nursing sequela associated with smoking. Pt declines assistance at this time but may contact the office at anytime for further help as they desire. Declines low-dose CT at this point Assessment & Plan (09/07/2023 10:30 PM GEOSPATIAL TECHNOLOGIST): Encouraged smoking cessation. Discussed 3 minutes. Reviewed options for assistance with cessation. Reviewed skilled nursing sequela associated with smoking. Pt declines assistance at this time but may contact the office at anytime for further help as they desire. Assessment & Plan (07/22/2022 1:47 PM GEOSPATIAL TECHNOLOGIST): Encouraged smoking cessation. Discussed 3 minutes. Reviewed options for assistance with cessation. Reviewed skilled nursing sequela associated with smoking. Pt declines assistance at this time but may contact the office at anytime for further help as they desire. Assessment & Plan (08/23/2021 9:42 PM GEOSPATIAL TECHNOLOGIST): Encouraged smoking cessation. Discussed 3 minutes. Reviewed options for assistance with cessation. Reviewed skilled nursing sequela associated with smoking. Pt declines assistance at this time but may contact the office at anytime for further help as they desire. Assessment & Plan (04/08/2021 2:56 PM CDT): Encouraged smoking cessation. Discussed 3 minutes. Reviewed options for assistance with cessation. Reviewed lobsterman sequela associated with smoking. Pt declines assistance at this time but may contact the office at anytime for further help as they desire. Assessment & Plan (01/18/2021 11:39 PM CDT): Encouraged smoking cessation. Discussed 3 minutes. Reviewed options for assistance with cessation. Reviewed lobsterman sequela associated with smoking. Pt declines assistance at this time but may contact the office at anytime for further help as they desire. Assessment & Plan (09/26/2020 8:30 PM CDT): Encouraged smoking cessation. Discussed 3 minutes. Reviewed options for assistance with cessation. Reviewed skilled nursing sequela associated with smoking. Pt declines assistance at this time but may contact the office at anytime for further help as they desire. Assessment & Plan (06/14/2020 5:55 PM GEOSPATIAL TECHNOLOGIST): Encouraged smoking cessation. Discussed 3 minutes. Reviewed options for assistance with cessation. Reviewed lobsterman sequela associated with smoking. Pt declines assistance at this time but may contact the office at anytime for further help as they desire. Assessment & Plan (03/15/2020 11:10 AM CDT): Encouraged smoking cessation. Discussed 3 minutes. Reviewed options for assistance with cessation. Reviewed lobsterman sequela associated with smoking. Pt declines assistance [...] Reviewed options for assistance with cessation. Reviewed lobsterman sequela associated with smoking. Pt declines assistance at this time but may contact the office at anytime for further help as they desire. Assessment & Plan (06/17/2019 6:16 PM GEOSPATIAL TECHNOLOGIST): Encouraged smoking cessation. Discussed 3 minutes. Reviewed options for assistance with cessation. Reviewed lobsterman sequela associated with smoking. Pt declines assistance at this time but may contact the office at anytime for further help as they desire. Assessment & Plan (01/30/2019 1:03 PM CDT): Encouraged smoking cessation. Discussed approx 3 minutes. Gastroesophageal reflux disease without esophagi tis 12/04/2018 Assessment & Plan (06/11/2024 12:15 PM GEOSPATIAL TECHNOLOGIST): Continue PPI Assessment & Plan (03/18/2024 8:05 PM CDT): Patient has been following closely with Dr. Truong RHODES. She transferred and saw Dr. Nath and had an EGD done. States at this point her symptoms are pretty stable so will just continue to monitor continuing the Bentyl as needed and continue PPI p.r.n. Assessment & Plan (05/21/2023 3:44 PM GEOSPATIAL TECHNOLOGIST): Continue PPI p.r.n.. Continue per GI Assessment & Plan (07/22/2022 1:47 PM GEOSPATIAL TECHNOLOGIST): Continue per Dr. Guerin. She is currentl on omeprazole sucralfate. Will await his recommendations Assessment & Plan (08/23/2021 9:42 PM GEOSPATIAL TECHNOLOGIST): Continue PPI. She is unsure if the Dexilant will continue to be covered by her insurance so she will contact us with the letter she has at home with her options. Assessment & Plan (04/08/2021 2:55 PM CDT): Increased reflux symptoms. She is currently on Dexilant. Encouraged to continue with the same regimen. Will refer her to GI Dr. Zamora at [place] she is due for colonoscopy and may [...] 12/04/2018 Assessment & Plan (06/11/2024 12:15 PM GEOSPATIAL TECHNOLOGIST): Supplement Assessment & Plan (03/18/2024 8:06 PM CDT): Supplement Assessment & Plan (09/07/2023 10:30 PM GEOSPATIAL TECHNOLOGIST): Supplement Assessment & Plan (05/21/2023 3:44 PM GEOSPATIAL TECHNOLOGIST): Supplement Assessment & Plan (07/22/2022 1:47 PM GEOSPATIAL TECHNOLOGIST): Supplement Assessment & Plan (09/26/2020 8:14 PM CDT): supplement Assessment & Plan (09/11/2019 9:18 AM CDT): supplement Assessment & Plan (01/30/2019 1:02 PM CDT): supplement COPD (chronic obstructive pulmonary disease) 09/2018 Assessment & Plan (08/26/2024 4:37 PM GEOSPATIAL TECHNOLOGIST): COPD symptoms have been stable. Continue Breo and albuterol p.r.n. Assessment & Plan (08/13/2024 1:18 PM GEOSPATIAL TECHNOLOGIST): Continue with albuterol and Breo as breathing is stable Assessment & Plan (06/11/2024 12:15 PM GEOSPATIAL TECHNOLOGIST): Encouraged complete smoking cessation. Continue Breo and albuterol as needed Assessment & Plan (03/18/2024 8:06 PM CDT): Encouraged complete smoking cessation. Continue albuterol nebs and Breo as needed. Assessment & Plan (09/07/2023 10:30 PM GEOSPATIAL TECHNOLOGIST): Patient with COPD. Continue with albuterol and Breo. Assessment & Plan (05/21/2023 3:44 PM GEOSPATIAL TECHNOLOGIST): Continue Symbicort and albuterol p.r.n. continue Flonase Assessment & Plan (07/22/2022 1:47 PM GEOSPATIAL TECHNOLOGIST): Stressed smoking cessation. Continue Symbicort albuterol inhaler nebulizer p.r.n. Assessment & Plan (07/27/2021 7:15 AM GEOSPATIAL TECHNOLOGIST): Continues Symbicort/prn albuterol Still requires Neb Albuterol [...] basis as instructed. New prescription sent to [place] pharmacy. [id number] completed today Assessment & Plan (09/26/2020 8:14 PM CDT): Continue Symbicort and Albuterol prn Assessment & Plan (03/15/2020 11:10 AM CDT): Continue current regimen. Stop smoking Assessment & Plan (09/11/2019 9:18 AM CDT): STOP smoking. Continue with current regimen inhalers Albuterol/Symbicort Assessment & Plan (01/30/2019 12:54 PM CDT): Continue with Symbicort SHERRY (obstructive sleep apnea) 12/02/2018 Assessment & Plan (08/26/2024 4:36 PM GEOSPATIAL TECHNOLOGIST): Patient has been diagnosed with SHERRY. Awaiting titration study for treatment plan. Continue per Dr. Manuel Assessment & Plan (06/11/2024 11:43 AM GEOSPATIAL TECHNOLOGIST): Patient has established with Dr. Manuel. She had her sleep study test that did confirm sleep apnea. Awaiting the titration study Assessment & Plan (03/18/2024 8:03 PM CDT): Patient was diagnosed with sleep apnea at [facility] with Dr. Joseph. She would not wear the mask so sent the machine back. Has been untreated for many years. Continues to snore and have daytime sleepiness. Strongly encouraged re- evaluation. Willing to see Dr. Manuel at [facility]. Referral placed Assessment & Plan (09/07/2023 10:30 PM GEOSPATIAL TECHNOLOGIST): Continue with CPAP Assessment & Plan (07/22/2022 1:36 PM GEOSPATIAL TECHNOLOGIST): Continue CPAP Assessment & Plan (04/08/2021 2:56 [...] 12/02/2018 Assessment & Plan (08/13/2024 1:17 PM GEOSPATIAL TECHNOLOGIST): Continue to follow with Shak[facility] in [place] Dr. Etienne's office. She stopped her clonazepam [...] acutely. Assessment & Plan (06/11/2024 11:43 AM GEOSPATIAL TECHNOLOGIST): Continue per psychiatrist. She continues to take out her medications and they are updated on her chart Assessment & Plan (03/18/2024 8:04 PM CDT): Continue following with her psychiatrist for management of her mental health concerns. Assessment & Plan (09/07/2023 10:30 PM GEOSPATIAL TECHNOLOGIST): Continue per Psychiatry. Current medications include Klonopin Ingrezza Lexapro Vraylar 6 mg Lamictal and lithium Assessment & Plan (05/21/2023 3:45 PM GEOSPATIAL TECHNOLOGIST): Continue per psychiatrist Assessment & Plan (07/22/2022 1:45 PM GEOSPATIAL TECHNOLOGIST): Continue per psychiatrist. Patient states she is on clonazepam, latuda, Hydroxyzine, Cymbalta and Lexapro Assessment & Plan (08/23/2021 9:42 PM GEOSPATIAL TECHNOLOGIST): Per psychiatrist Assessment & Plan (04/08/2021 2:58 PM CDT): Continue per Psychiatry Assessment & Plan (06/14/2020 5:56 PM GEOSPATIAL TECHNOLOGIST): Unsure of exact diagnosis. Medication/treatment plan is [...] 08/26/2024 Assessment & Plan (08/13/2024 1:19 PM GEOSPATIAL TECHNOLOGIST): Advised patient it is difficult to know if she has true hypertension versus anxiety/panic. Recommend doing home readings and calling us in a couple of weeks with those readings. If she can not do them at home she can always come in but I know transportation is sometimes difficult. Need for influenza vaccination 06/11/2024 08/26/2024 Assessment & Plan (06/11/2024 12:16 PM GEOSPATIAL TECHNOLOGIST): Flu vaccine updated in the office today Annual physical exam 06/11/2024 025 Assessment & Plan (06/11/2024 12:16 PM GEOSPATIAL TECHNOLOGIST): Encouraged healthy lifestyle, good nutrition and exercise. [...] 03/17/2024 Assessment & Plan (09/07/2023 10:31 PM GEOSPATIAL TECHNOLOGIST): Encouraged healthy lifestyle, good nutrition and exercise. Encouraged Calcium and Vitamin D and weight bearing exercise for bone health. Reviewed immunizations. Reviewed age appropirate screenings. Medicare Wellness Documentation is completed within the chart BMI 38.0-38.9,adult 05/21/2023 09/07/19 24 Assessment & Plan (05/21/2023 3:46 PM GEOSPATIAL TECHNOLOGIST): Discussed the patient's BMI. The BMI is above average. BMI management plan is completed. BMI Follow-up includes: nutrition counseling, exercise counseling and education provided. BMI 39.0-39.9,adult 07/22/2022 05/04/20 Assessment & Plan (07/22/2022 1:48 PM GEOSPATIAL TECHNOLOGIST): Discussed the patient's BMI. The BMI is above average. BMI management plan is completed. BMI Follow-up includes: nutrition counseling, exercise counseling and education provided. Need for vaccination 07/22/2022 024 Assessment & Plan (05/21/2023 3:46 PM GEOSPATIAL TECHNOLOGIST): Flu vaccine updated in the office Assessment & Plan (07/22/2022 1:48 PM GEOSPATIAL TECHNOLOGIST): Flu vaccine at the office today Encounter for screening mamm ogram for malignant neoplasm of breast 07/22/2022 09/07/2023 Assessment & Plan (07/22/2022 1:48 PM GEOSPATIAL TECHNOLOGIST): Mammogram order provided Bloody diarrhea 04/08/2021 09/07/2023 [...] 09/07/2023 Assessment & Plan (07/22/2022 1:48 PM GEOSPATIAL TECHNOLOGIST): Encouraged healthy lifestyle, good nutrition and exercise. [...] 2015. Prefers to see a provider at [facility]. She is also having burning in [...] 01/14/20212022 Assessment & Plan (08/23/2021 9:43 PM GEOSPATIAL TECHNOLOGIST): Obesity is unchanged. Discussed the patient's BMI. [...] 23 Assessment & Plan (07/27/2021 7:21 AM GEOSPATIAL TECHNOLOGIST): Obesity is unchanged. Discussed the patient's BMI. [...] onset of sxs. Check COVID test thru [facility] collection site in [place]. Treat sxs with Tylenol, Cough/cold medication otc [...] water often. If needed, use a hand sewer repairer that contains at least 60% alcohol. Clean [...] 04/08/2021 Assessment & Plan (07/22/2020 11:47 AM GEOSPATIAL TECHNOLOGIST): Declines covid 19 testing at this time. Will start on ceftin 500mg bid x 7 days. She was advised to report to office if having otorrhea or worsening of symptoms. Need for immunization against influenza 06/14/2020 02/17/2021 Assessment & Plan (06/14/2020 5:57 PM GEOSPATIAL TECHNOLOGIST): Updated in office today BMI 37.0-37.9, adult 06/10/2020 024 Assessment & Plan (09/07/2023 10:31 PM GEOSPATIAL TECHNOLOGIST): Discussed the patient's BMI. The BMI is above average. BMI management plan is completed. BMI Follow-up includes: nutrition counseling, exercise counseling and education provided. Assessment & Plan (06/10/2020 1:35 PM GEOSPATIAL TECHNOLOGIST): Obesity is unchanged. Discussed the patient's BMI. The BMI is above average. BMI management plan is completed. BMI Follow-up includes: nutrition counseling, exercise counseling and education provided.Obesity is unchanged. Discussed the patient's BMI. Positive depression screening 06/10/2020 08/26/2024 Assessment & Plan (07/22/2020 11:47 AM GEOSPATIAL TECHNOLOGIST): Continue medication same Assessment & Plan (06/14/2020 5:56 PM GEOSPATIAL TECHNOLOGIST): Pt denies any suicidal or homicidal thoughts. [...] 03/17/2024 Assessment & Plan (09/07/2023 10:30 PM GEOSPATIAL TECHNOLOGIST): Probably multifactorial. Check labs and followup to re-evaluate Assessment & Plan (09/11/2019 9:21 AM CDT): Probably multifactorial. Check labs and followup to re-evaluate Hyperglycemia 09/11/2019 03/06/2024 Assessment & Plan (09/07/2023 10:30 PM GEOSPATIAL TECHNOLOGIST): Pre-diabetes/hyperglycemia is a precursor to Dm. Stressed [...] Department Care Team Description 10/02/2024 Orders Only [facility] Family [facility] [address] [place] [address] Inez New PA Enlarged liver (Primary Dx); Bile duct abnormality 09/28/2024 Telephone [facility] [address] [place] [address] Inez New PA 09/24/2024 Documentation [facility] Cardiology [address] [place] [id number] Tessie Rice MA 09/21/2024 Telephone [facility] Accountable Care Organization [address] [place] [address] Antonella Costa Chart Review ([facility] Med Adherence ) 09/11/2024 Orders Only [facility] Medical [facility] Internal Medicine at [place] [address] [place] [address] Inez New PA Need for RSV vaccination (Primary Dx) 09/05/2024 Orders Only [facility] Family Medicine [address] [place] [address] Inez New PA Positive HARRIETT (antinuclear antibody) (Primary Dx) 09/05/2024 Orders Only [facility] [address] [place] [address] Inez [place] Positive HARRIETT (antinuclear antibody) (Primary Dx) 09/04/2024 Results Follow-Up [facility] [address] [place] [address] Ienz New [place] 08/28/2024 Orders Only [facility] [address] [place] [address] Inez [place] Dizziness (Primary Dx); Persistent headaches 08/28/2024 Orders Only [facility] Medicine [address] [place] [address] Inez [place] Facial rash (Primary Dx) 08/24/2024 Orders Only [facility] Health Information Management [address] [place] [address] Inez [place] 08/24/2024 Telephone [facility] [address] [place] [address] Jeffy Manuel MD Cpap titration results / cpap order 08/23/2024 7:47 PM GEOSPATIAL TECHNOLOGIST - 08/23/2024 11:59 PM GEOSPATIAL TECHNOLOGIST Hospital Encounter [facility] [address] [place] [address] SHERRY (obstructive sleep apnea) Discharge Disposition: Discharge to home or self care 08/23/[address] [place] [phone] Inez New [place] 08/23/[address] [place] [phone] Inez [place] Medication Request 08/23/[address] [place] [phone] Inez [place] 08/20/[address] [place] [phone] Inez [place] 08/15/2024 10:00 AM GEOSPATIAL TECHNOLOGIST Office Visit [address] [place] [phone] Inez [place] Annual physical exam [...] (HCC); Essential (primary) hypertension 08/01/2024 11:00 AM GEOSPATIAL TECHNOLOGIST Telemedicine [address] [place] [address] Inez [place] Type 2 diabetes mellitus without complication, without long-term current use of insulin (HCC) (Primary Dx); Elevated blood pressure reading; Chronic obstructive pulmonary disease, unspecified COPD type (HCC); Type 2 diabetes mellitus with hyperlipidemia (HCC); Mental health problem; BMI 40.0-44.9, adult (HCC); Morbid obesity (HCC); Hyperlipidemia, unspecified hyperlipidemia type 07/30/2024 Telephone [place] [id number] [facility] [address] [place] [address] Inez New [place] 07/26/[address] [place] [phone] Inez [place] 07/26/[address] [place] [phone] Inez [place] 07/25/[address] [place] [phone] Inez [place] 07/18/2024 Orders Only [address] [place] [phone] Inez New [place] from Last 3 Months Immunizations Immunization Administration Dates Next Due Influenza, Quadrivalent, Spl it, Preservative Free, Intramuscular 05/04/2023,07/22/2022,04/06/2021,06/10 Influenza, Trivalent, Preser vative Free, Intramuscular 06/11/2024 Influenza, Unspecified 07/02/2019 Pfizer SARS-CoV-2 Monovalent Vaccination (12+ Yrs) PURPLE 11/25/2020,10/30/2020 Tdap 06/30/2017 Surgical History Surgery Date Site/Laterality Comments ESOPHAGOGASTRODUODENOSCOPY 09/02/2015 - 10/02/2015 COLONOSCOPY 09/02/2015 - 10/02/2015 ENDOMETRIAL ABLATION W/ IRMA KNEE ARTHROSCOPY Left KNEE ARTHROSCOPY 01/22/2020 Right [...] on file Legal Sex Female 4:54 AM GEOSPATIAL TECHNOLOGIST Gender Identity Not on file Sexual Orientation Not on file Occupation Industry Job Start Date Job End Date Disabled Not on file Not on file Not on file Obstetrics History Last Filed Vital Signs Vital Sign Reading Time Taken Comments Blood Pressure 164/86 08/15/2024 10:04 AM GEOSPATIAL TECHNOLOGIST Pulse 85 08/15/2024 10:04 AM GEOSPATIAL TECHNOLOGIST Temperature 36.3 C (97.4 F) 08/15/2024 10:04 AM GEOSPATIAL TECHNOLOGIST Respiratory Rate 18 05/18/2024 9:37 AM GEOSPATIAL TECHNOLOGIST Oxygen Saturation 97% 08/15/2024 10:04 AM GEOSPATIAL TECHNOLOGIST Inhaled Oxygen Concentration - - Weight 105 kg (231 lb 6.4 oz) 08/15/2024 10:04 A M GEOSPATIAL TECHNOLOGIST Height 154.9 cm (5' 1 ) 08/15/2024 10:04 AM GEOSPATIAL TECHNOLOGIST Body Mass Index 43.72 08/15/2024 10:04 AM GEOSPATIAL TECHNOLOGIST Plan of Treatment Health Maintenance Due Date Last Done Comments Hepatitis C Screening 1971 Dilated Eye Exam 1971 Foot Exam 1971 Hepatitis B Screening 1989 Pneumococcal vaccine <65 (1 of 2 - PCV) 1990 Cervical Cancer Screening 08/03/2018 08/03/2017, Covid-19 Vaccine (3 - 2023-2 5 season) 2024 11/25/2020, 10/30/2020 Zoster Vaccine (2 of 2) 11/06/2024 09/11/2024 Hemoglobin A1C 11/29/2024 06/01/2024, 02/02, 03/31/2023, Additional history exists Albumin Creatinine Ratio, Urine 06/01/2025 Lipid Panel 06/01/2025 06/01/2024, 02/02, 03/31/2023, Additional history exists eGFR 06/01/2025 06/01/2024, 02/02, 03/31/2023, Additional history exists Breast Cancer Screening-Mammogram 08/08/2025 08/08/2024, 07/19/2023, 11/16/2018, Additional history exists Depression Screening 08/15/2025 08/15/2024, 08/15/2024, 08/01/2024, Additional history exists Regular Well Visit/Exam 18-64 08/15/2025, 06/11/2024, 09/07/2023, Additional history exists Colon Cancer Screening-Colonoscopy 05/26/20262020, 05/26/2021 DTaP/Tdap/Td Vaccine (2 - Td or Tdap) 06/30/2027 06/30/2017 Influenza Vaccine Completed 06/11/2024, , 07/22/2022, Additional history exists Procedures Procedure Name Priority Date/Time Associated Diagnosis Comments HARRIETT TITER & PATTERN Routine 08/28/2024 1 :17 PM GEOSPATIAL TECHNOLOGIST HARRIETT QUALITATIVE WITH REFLEX TO HARRIETT QUANTITATIVE Routine 08/28/2024 1:17 PM GEOSPATIAL TECHNOLOGIST Facial rash SCAN - PATHOLOGY 08/24/2024 GI - RESULT 08/24/2024 PSG (COMPLEX) Routine 08/23/2024 7:47 PM GEOSPATIAL TECHNOLOGIST SHERRY (obstructive sleep apnea) ECG 12-LEAD Routine 08/15/2024 10:46 AM GEOSPATIAL TECHNOLOGIST Elevated blood pressure reading SCREENING MAMMOGRAM BILATERAL W ALBERTO Schedule Routine, Read Routine (OP Routine) 08/08/2024 2:15 PM GEOSPATIAL TECHNOLOGIST Breast cancer screening by mammogram ALBUMIN CREATININE RATIO, URINE Routine 06/01/2024 7:12 AM GEOSPATIAL TECHNOLOGIST Type 2 diabetes mellitus with hyperlipidemia (HCC) COMPREHENSIVE METABOLIC PANEL Routine 06/01/2024 7:11 AM GEOSPATIAL TECHNOLOGIST Type 2 diabetes mellitus with hyperlipidemia (HCC) HEMOGLOBIN A1C Routine 06/01/2024 7:11 AM GEOSPATIAL TECHNOLOGIST Type 2 diabetes mellitus with hyperlipidemia (HCC) LIPID PANEL Routine 06/01/2024 7:11 AM GEOSPATIAL TECHNOLOGIST Hyperlipidemia, unspecified hyperlipidemia type HM COLONOSCOPY Routine 05/26/2021 THINPREP SQUEAK [employer] LEAK REPAIRER PAP (IMAGE GUIDED) LIQUID-BASED PREP Routine 08/03/2017 12:16 PM GEOSPATIAL TECHNOLOGIST from Last 3 Months or Most Recently Relevant to Health Maintenance Results * (ABNORMAL) HARRIETT ab ql w/rflx to HARRIETT qn (08/28/2024 1:17 PM GEOSPATIAL TECHNOLOGIST) HARRIETT, qual POSITIVE( A) NEGATIVE [facility] [place] Comment: HARRIETT IFA is a first line screen for detecting the presence of up to approximately 150 autoantibodies in various autoimmune diseases. A positive HARRIETT IFA result is suggestive of autoimmune disease and reflexes to titer and pattern. Further laboratory testing may be considered if clinically indicated. For additional information, please refer to http://education.Ping Communication.ReFlow Medical/faq/PAN913 (This link is being provided for informational/ educational purposes only.) Blood 08/28/2024 1:17 PM GEOSPATIAL TECHNOLOGIST 08/28/2024 1:18 PM GEOSPATIAL TECHNOLOGIST Narrative [facility] - 08/30/2024 1:13 PM GEOSPATIAL TECHNOLOGIST FASTING:YES FASTING: YES us Inez V[facility] LAB BLOOD ORDERABLES Final Result [facility] [address] [address] [phone] * (ABNORMAL) Antinuclear Antibodies Titer and Pattern (08/28/2024 1:17 PM GEOSPATIAL TECHNOLOGIST) HARRIETT, quant 1:80(H) titer [facility] [...] AC-1: Homogeneous International Consensus on HARRIETT Patterns (https://doi.org/10.1515/lave-[email or web address]) 08/28/2024 1:17 PM GEOSPATIAL TECHNOLOGIST 08/28/2024 1:18 PM GEOSPATIAL TECHNOLOGIST Narrative [facility] - 08/30/2024 1:13 PM GEOSPATIAL TECHNOLOGIST FASTING:YES FASTING: YES Inez [facility] LAB BLOOD ORDERABLES Final Result Performing Organization Address City/[facility]/ZIP Co de Phone Number [facility] [address] [place] [address] * GI - RESULT (08/24/2024) Anatomical Region Laterality Modality Other Inez VELASCO Final Resu lt * SCAN - PATHOLOGY (08/24/2024) Provider Scanning Final Result * PSG-Sleep Provider Use Only (08/23/2024 7:47 PM GEOSPATIAL TECHNOLOGIST) Jeffy Manuel MD SLEEP CENTER ORDERABLES F inal Result Performing Organization Address City/[facility]/ZIP Co de Phone Number [facility]EP [facility] [address] [place] [address], [facility] * ECG 12 lead (08/15/2024 10:46 AM GEOSPATIAL TECHNOLOGIST) us Inez VELASCO ECG ORDERABLES Final Resu lt * Screening Mammogram Bilateral W Alberto (08/08/2024 2:15 PM GEOSPATIAL TECHNOLOGIST) Anatomical Region Laterality Modality Breast Bilateral Mammography Impressions 08/08/2024 2:15 PM GEOSPATIAL TECHNOLOGIST 1.No mammographic evidence of malignancy 2.Routine screening recommended for 1 year BI-RADS Category 1 Negative us Inez [facility] IMG MAMMO PROCEDURES Final Result * Albumin Creatinine Ratio, Urine (06/01/2024 7:12 AM GEOSPATIAL TECHNOLOGIST) Creatinine, ur 42 20 - 275 mg/dL [...] a diagnostic category. Urine 06/01/2024 7:12 AM GEOSPATIAL TECHNOLOGIST 06/01/2024 7:13 AM GEOSPATIAL TECHNOLOGIST Inez V[facility] LAB URINE ORDERABLES Final Result [facility] [address] [phone] * (ABNORMAL) Hemoglobin A1c (06/01/2024 7:11 AM GEOSPATIAL TECHNOLOGIST) Hgb A1C 5.9(H) <5.7 % of total [...] diabetes for children. Blood 06/01/2024 7:11 AM GEOSPATIAL TECHNOLOGIST 06/01/2024 7:11 AM GEOSPATIAL TECHNOLOGIST Narrative [facility] - 06/01/2024 9:56 PM GEOSPATIAL TECHNOLOGIST FASTING:YES FASTING: YES us Inez [facility] LAB BLOOD ORDERABLES Final Result ESTELLA [facility] [address] [place] [address] * (ABNORMAL) Lipid panel (06/01/2024 7:11 AM GEOSPATIAL TECHNOLOGIST) [facility] Cholesterol 142 <200 mg/dL [employer]erson Jackson HDL 47(L) > OR = 50 mg/dL [employer]Emerson Jackson Triglycerides 124 <150 mg/dL [facility] shukri Jackson LDL 74 mg/dL (calc) [employer]Emerson Jackson Comment: Reference range: <100 Desirable range <100 mg/dL for primary prevention; <70 mg/dL for patients with CHD or diabetic patients with > or = 2 CHD risk factors. LDL-C is now calculated using the Arley-Marito calculation, which is a validated novel method providing better accuracy than the Friedewald equation in the estimation of LDL-C. Arley COSTA et al. FRANKY. 2013;310(19): 3934-9033 (http://education.Ping Communication.ReFlow Medical/faq/OXI048) Chol/HDL ratio 3.0 <5.0 (calc) [employer]Emerson Jackson Non-HDL, (LDL+VLDL) 95 <130 mg/dL (calc) [employer] Comment: For patients with diabetes plus 1 major ASCVD risk factor, treating to a non-HDL-C goal of <100 mg/dL (LDL-C of <70 mg/dL) is considered a therapeutic option. Blood 06/01/2024 7:11 AM GEOSPATIAL TECHNOLOGIST 06/01/2024 7:11 AM GEOSPATIAL TECHNOLOGIST Narrative [facility] - 06/01/2024 9:56 PM GEOSPATIAL TECHNOLOGIST FASTING:YES FASTING: YES Inez [facility] LAB BLOOD ORDERABLES Final Result ESTELLA Estella GalvanMelissa [address] [place] [address] * Comprehensive metabolic panel (06/01/2024 7:11 AM GEOSPATIAL TECHNOLOGIST) [facility] Glucose 98 65 - 99 mg/dL Estella [email or web address] Jackson Comment: Fasting reference interval BUN 11 7 - 25 mg/dL Estella GalvanEmerson watt Manuel Creatinine 0.75 0.50 - 1.03 mg/dL [facility]Emerson Jackson eGFR 95 > OR = 60 mL/min/1.7 3m2 [facility]ella [email or web address] Jackson BUN/creat ratio SEE NOTE: 6 - 22 (calc) [facility]Emerson Jackson Comment: Not Reported: BUN and Creatinine are within reference range. Sodium 136 135 - 146 mmol/L [facility] Potassium, pl 4.3 3.5 - 5.3 mmol/L [facility] Chloride 102 98 - 110 mmol/L [facility] CO2 26 20 - 32 mmol/L Estella Gal[facility]-S shukri Jackson Calcium 9.5 8.6 - 10.4 mg/dL [facility] Protein, sr 6.8 6.1 - 8.1 g/dL [facility] Jackson Albumin 4.6 3.6 - 5.1 g/dL [facility] watt Manuel GLOBULIN 2.2 1.9 - 3.7 g/dL (calc) [facility]Emerosn Jackson Alb/glob ratio 2.1 1.0 - 2.5 (calc) [facility]erson Jackson Bilirubin, total 0.6 0.2 - 1.2 mg/dL [facility] Alk phos 69 37 - 153 U/L [facility] AST 24 10 - 35 U/L Estella [email or web address] Manuel ALT (SGPT) 21 6 - 29 U/L [employer] [facility] Manuel Blood 06/01/2024 7:11 AM GEOSPATIAL TECHNOLOGIST 06/01/2024 7:11 AM GEOSPATIAL TECHNOLOGIST Narrative [facility] - 06/01/2024 9:56 PM GEOSPATIAL TECHNOLOGIST FASTING:YES FASTING: YES Result [facility] Inez VELASCO LAB BLOOD ORDERABLES Final Result Performing Organization Address [facility]/ZIP Co de Phone Number [facility] [employer] [facility] [place] [address] [place] [address] * (ABNORMAL) COLONOSCOPY (05/26/2021) Historical Provider HEALTH MAINTENANCE Edited Result - Final * ThinPrep Gynecologic Pap Test (Image-guided), Liquid-based Preparation (08/03/2017 12:16 PM GEOSPATIAL TECHNOLOGIST) CLINICAL INFORMATION [facility] Comment:Information not prov ided LMP: 07/19 [facility] HISTORICAL RESULTS PREV. PAP: [facility]ISTOR[facility] Comment:MANY YEARS AGO PREV. BX: [facility] HISTORICAL RESULTS Comment:INFORMATION NOT PROV IDED SOURCE: [facility]IST[facility]ICAL RESULTS Comment:Cervix, Endocervix STATEMENT OF ADEQUACY: [facility] HISTORICAL RESULTS Comment: Satisfactory for evaluation. Endocervical/transformation zone component present. INTERPRETATION/RESU LT: [facility] Comment:Negative for intraep ithelial lesion or malignancy. COMMENT: [facility] Comment: This Pap test has been evaluated with computer assisted technology. RECORD PRODUCER: [facility] HISTORICAL RESULTS Comment: YQ, CT(ASCP) CT screening location: [place] [address] [place] [address] 08/03/2017 12:1 6 PM GEOSPATIAL TECHNOLOGIST 08/09/2017 8:55 PM GEOSPATIAL TECHNOLOGIST Narrative [facility] - 08/09/2017 8:41 PM GEOSPATIAL TECHNOLOGIST 0 PERFORMING LAB: ROG[facility] [place] [address] [place] [phone] Mahi Mcmahon MD Result [facility] Historical Provider LAB PATHOLOGY ORDERABLES Final Result Performing Organization Address [facility]/ZIP Co de Phone Number [facility] HISTORICAL RESULTS from Last 3 Months or Most Recently Relevant to Health Maintenance Insurance [facility] MEDICARE ADVANTAGE [facility] MEDICARE ADVANTAGE [facility] MEDICARE ADVANTAGE Advance Directives For more information, please contact: [phone] * Full Code (Latest Code Status on File) Date Activated Date Inactivated Comments 05/29/2022 12:59 PM 05/30/2022 2:26 PM * Full Code Date Activated Date Inactivated Comments 05/28/2022 7:20 PM 05/29/2022 12:59 PM Care Teams Warp Doffer Relationship Specialty Start Date End Date [place] [address] [place] [address] PCP - General 09/14/17 Candido Guerin MD [address] [place] [address] Consulting Physician Gastroenterology 05/04/23 Anthony Diez MD [address] [place] [address] Consulting Physician Rheumatology 09/18/24
--- OUTSIDE RECORDS SUMMARY | 2024-10-03 09:47 | XMS_ITS ---
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 Name Role Phone Rachell New PA-C Primary Care Provider UnaKacy Mosqueda Unavailable [phone] Allergies No Known Allergies REASON FOR VISIT 1 month f/u Medications Medication SIG (Take, Route, Frequency, Duration) Notes Start Date End Date Status Propranolol HCl 10 MG 1 tablet on an empty stomach Orally twice a day for 28 days Active [place] Carbonate ER 300 mg 1 tablet at bedtime oral daily for 28 days Active lamoTRIgine 200 mg 1 tablet oral twice a day for 28 days Active FLUoxetine HCl 40 MG 1 capsule Orally Once a day for 28 days Active Dexilant 60 MG Oral 11/22/2023 Not- Taking Diclofenac Sodium 1% Transdermal 11/22/2023 Not-Taking Cyclobenzaprine HCl 10 MG Oral 11/22/2023 Not-Taking HYDROcodone-Acetamino phen 5-325 MG Oral 11/22/2023 Not-Taking Ingrezza 80 mg 1 capsule oral daily for 28 days Not-Taking clonazePAM 0.5 mg 1 tablet oral twice a day for 28 days 06/02/2024 Not-Taking Symbicort 160-4.5 MCG/ACT Inhalation 11/22/2023 Active Propranolol HCl 10 MG TAKE 1 TABLET BY MOUTH TWICE A DAY ON EMPTY STOMACH FOR 30 DAYS for 90 Active Naproxen 375 MG Oral 11/22/2023 Not -Taking ProAir HFA 108 (90 Base) MCG/ACT Inhalation 11/22/2023 Active Nebivolol HCl 5 MG TAKE 1 TABLET (5 MG TOTAL) BY MOUTH DAILY. Oral for 30 Days Active Omeprazole 40 MG Oral 11/22/2023 Ac tive Meloxicam 15 MG Oral 11/22/2023 Act inder Rosuvastatin Calcium 20 MG Oral 11/22/2023 Active Fluticasone Propionate Diskus 50 MCG/ACT Inhalation *Reorder from [employer] for eRx and Interaction Alerts* 11/22/2023 Active Cholecalciferol 25 MCG (1000 UT) Oral 11/22/2023 Active Breo Ellipta 200-25 MCG/INH Inhalation 11/22/2023 Active lamoTRIgine 200 mg TAKE 1 TABLET BY MOUTH TWICE A DAY for 28 Active metFORMIN HCl unkown mg Active Albuterol Sulfate (2.5 MG/3ML) 0.083% Inhalation 11/22/2023 Active Cetirizine HCl 10 MG Oral 11/22/2023 Active Social History Tobacco Use: Social History [...] Drinks ETOH on weekends. Den ies dependence Problems Problem Type SNOMED Code ICD Code Onset Dates Problem Status W/U Status Risk Notes Problem Tobacco use (098710017) Nicotine use (Z72.0) Active confirmed Vital Signs Blood pressure systolic 118 mm Hg 09/20/19 25 Blood pressure diastolic 79 mm Hg 025 Heart Rate 79 /min 09/19/2024 Height 67.00 in 09/19/2024 Weight 229 lbs 09/19/2024 BMI 35.86 kg/m2 09/19/2024 Height-cm 170.18 cm 09/19/2024 Weight-kg 103.87 kg 09/19/2024 Encounters Encounter Location Date Provider Diagnosis [facility] [address] [address] 09/19/2024 Kacy Marroquin Generalized anxiety disorder F41.1 ; Borderline personality disorder F60.3 ; Post-traumatic stress disorder, chronic F43.12 ; Bipolar disorder, current episode depressed, severe, without psychotic features F31.4 ; Benign essential HTN I10 ; Obstructive sleep apnea (adult) (pediatric) G47.33 ; Nicotine use Z72.0 and Encounter for screening for depression Z13.31 Assessments Encounter Date Diagnosis (ICD Code) Assessment Notes Treatment Notes Treatment Clinical Notes Section Notes 09/19/2024 Generalized anxiety disorder (ICD-10 - F41.1) Mood Disorder Assessment: Patient reports ongoing depressive symptoms. Recent restart of lithium has shown some improvement. Potential exacerbation due to psychosocial stressors, including son in rehab and pending medical diagnoses. Discussed options, would like to keep current regimen the same and follow up after medical concerns are sorted out. Plans to discuss medications with rat culturist as upcoming appointment Plan: - Continue lithium 300mg daily - Continue fluoxetine 40mg daily - Continue lamotrigine 200mg twice daily - Monitor for effectiveness and side effects - Reassess need for medication adjustments after cardiology consultation Anxiety Disorder Assessment: Patient experiences ongoing anxiety with panic attacks, particularly during car rides. Reports some improvement with current management. Using propranolol and hraq-cez-desrxyb anxiety patches (Blaise patches with Ashwagandha and PIEDAD) as needed. Plan: - Continue propranolol 10mg twice daily for anxiety - Encourage continued use of coping strategies for car rides (e.g., reading instead of looking out the window) - Monitor effectiveness of current medication regimen Sleep Disturbances Assessment: Patient reports difficulty maintaining sleep, waking every 1-2 hours. Recently started using CPAP but having issues with consistent use. Experiencing worsening nightmares, describing feeling of suffocation and inability to wake up. Plan: - Encourage consistent CPAP use - Consider prazosin for nightmares, pending rat culturist approval due to potential blood pressure effects Suspected Lupus Assessment: Recent blood work shows positive HARRIETT (1.8, normal less than 1.4) and homogeneous pattern associated with lupus. Patient scheduled for rheumatology follow-up on October 15 and for further evaluation and explanation of results. Plan: - Await rheumatology evaluation and diagnosis - Monitor for lupus-related symptoms, including fatigue and mental health changes Cardiovascular Concerns Assessment: Patient reports fluctuating blood pressure and low heart rate (as low as 48 bpm during sleep, often around 58 bpm when inactive). Scheduled for cardiology evaluation including echocardiogram and stress test. Plan: - Await cardiology evaluation and recommendations - Monitor heart rate and blood pressure at home - Obtain rat culturist's input on psychiatric medications that may affect cardiovascular function (fluoxetine, propranolol, potential prazosin) Smoking Cessation Assessment: Patient reports attempts to reduce cigarette use. No current use of nicotine replacement therapy or other smoking cessation aids. Plan: - Encourage continued efforts to reduce and ultimately cease smoking - Discuss potential for nicotine replacement therapy or other smoking cessation aids at future visits follow up in 6 weeks, sooner if concerns arise 09/19/2024 Borderline personality disorder (ICD-10 - F60.3) Mood Disorder Assessment: Patient reports ongoing depressive symptoms. Recent restart of lithium has shown some improvement. Potential exacerbation due to psychosocial stressors, including son in rehab and pending medical diagnoses. Discussed options, would like to keep current regimen the same and follow up after medical concerns are sorted out. Plans to discuss medications with rat culturist as upcoming appointment Plan: - Continue lithium 300mg daily - Continue fluoxetine 40mg daily - Continue lamotrigine 200mg twice daily - Monitor for effectiveness and side effects - Reassess need for medication adjustments after cardiology consultation Anxiety Disorder Assessment: Patient experiences ongoing anxiety with panic attacks, particularly during car rides. Reports some improvement with current management. Using propranolol and hbjq-zxb-vvakjsq anxiety patches (Blaise patches with Ashwagandha and PIEDAD) as needed. Plan: - Continue propranolol 10mg twice daily for anxiety - Encourage continued use of coping strategies for car rides (e.g., reading instead of looking out the window) - Monitor effectiveness of current medication regimen Sleep Disturbances Assessment: Patient reports difficulty maintaining sleep, waking every 1-2 hours. Recently started using CPAP but having issues with consistent use. Experiencing worsening nightmares, describing feeling of suffocation and inability to wake up. Plan: - Encourage consistent CPAP use - Consider prazosin for nightmares, pending rat culturist approval due to potential blood pressure effects Suspected Lupus Assessment: Recent blood work shows positive HARRIETT (1.8, normal less than 1.4) and homogeneous pattern associated with lupus. Patient scheduled for rheumatology follow-up on October 15 and for further evaluation and explanation of results. Plan: - Await rheumatology evaluation and diagnosis - Monitor for lupus-related symptoms, including fatigue and mental health changes Cardiovascular Concerns Assessment: Patient reports fluctuating blood pressure and low heart rate (as low as 48 bpm during sleep, often around 58 bpm when inactive). Scheduled for cardiology evaluation including echocardiogram and stress test. Plan: - Await cardiology evaluation and recommendations - Monitor heart rate and blood pressure at home - Obtain rat culturist's input on psychiatric medications that may affect cardiovascular function (fluoxetine, propranolol, potential prazosin) Smoking Cessation Assessment: Patient reports attempts to reduce cigarette use. No current use of nicotine replacement therapy or other smoking cessation aids. Plan: - Encourage continued efforts to reduce and ultimately cease smoking - Discuss potential for nicotine replacement therapy or other smoking cessation aids at future visits follow up in 6 weeks, sooner if concerns arise 09/19/2024 Post-traumatic stress disorder, chronic (ICD-10 - F43.12) Mood Disorder Assessment: Patient reports ongoing depressive symptoms. Recent restart of lithium has shown some improvement. Potential exacerbation due to psychosocial stressors, including son in rehab and pending medical diagnoses. Discussed options, would like to keep current regimen the same and follow up after medical concerns are sorted out. Plans to discuss medications with rat culturist as upcoming appointment Plan: - Continue lithium 300mg daily - Continue fluoxetine 40mg daily - Continue lamotrigine 200mg twice daily - Monitor for effectiveness and side effects - Reassess need for medication adjustments after cardiology consultation Anxiety Disorder Assessment: Patient experiences ongoing anxiety with panic attacks, particularly during car rides. Reports some improvement with current management. Using propranolol and lsiz-vco-xynkwvv anxiety patches (Blaise patches with Ashwagandha and PIEDAD) as needed. Plan: - Continue propranolol 10mg twice daily for anxiety - Encourage continued use of coping strategies for car rides (e.g., reading instead of looking out the window) - Monitor effectiveness of current medication regimen Sleep Disturbances Assessment: Patient reports difficulty maintaining sleep, waking every 1-2 hours. Recently started using CPAP but having issues with consistent use. Experiencing worsening nightmares, describing feeling of suffocation and inability to wake up. Plan: - Encourage consistent CPAP use - Consider prazosin for nightmares, pending rat culturist approval due to potential blood pressure effects Suspected Lupus Assessment: Recent blood work shows positive HARRIETT (1.8, normal less than 1.4) and homogeneous pattern associated with lupus. Patient scheduled for rheumatology follow-up on October 15 and for further evaluation and explanation of results. Plan: - Await rheumatology evaluation and diagnosis - Monitor for lupus-related symptoms, including fatigue and mental health changes Cardiovascular Concerns Assessment: Patient reports fluctuating blood pressure and low heart rate (as low as 48 bpm during sleep, often around 58 bpm when inactive). Scheduled for cardiology evaluation including echocardiogram and stress test. Plan: - Await cardiology evaluation and recommendations - Monitor heart rate and blood pressure at home - Obtain rat culturist's input on psychiatric medications that may affect cardiovascular function (fluoxetine, propranolol, potential prazosin) Smoking Cessation Assessment: Patient reports attempts to reduce cigarette use. No current use of nicotine replacement therapy or other smoking cessation aids. Plan: - Encourage continued efforts to reduce and ultimately cease smoking - Discuss potential for nicotine replacement therapy or other smoking cessation aids at future visits follow up in 6 weeks, sooner if concerns arise 09/19/2024 Bipolar disorder, current episode depressed, severe, without psychotic features (ICD-10 - F31.4) Mood Disorder Assessment: Patient reports ongoing depressive symptoms. Recent restart of lithium has shown some improvement. Potential exacerbation due to psychosocial stressors, including son in rehab and pending medical diagnoses. Discussed options, would like to keep current regimen the same and follow up after medical concerns are sorted out. Plans to discuss medications with rat culturist as upcoming appointment Plan: - Continue lithium 300mg daily - Continue fluoxetine 40mg daily - Continue lamotrigine 200mg twice daily - Monitor for effectiveness and side effects - Reassess need for medication adjustments after cardiology consultation Anxiety Disorder Assessment: Patient experiences ongoing anxiety with panic attacks, particularly during car rides. Reports some improvement with current management. Using propranolol and ksfi-vmd-rvnjezh anxiety patches (Blaise patches with Ashwagandha and PIEDAD) as needed. Plan: - Continue propranolol 10mg twice daily for anxiety - Encourage continued use of coping strategies for car rides (e.g., reading instead of looking out the window) - Monitor effectiveness of current medication regimen Sleep Disturbances Assessment: Patient reports difficulty maintaining sleep, waking every 1-2 hours. Recently started using CPAP but having issues with consistent use. Experiencing worsening nightmares, describing feeling of suffocation and inability to wake up. Plan: - Encourage consistent CPAP use - Consider prazosin for nightmares, pending rat culturist approval due to potential blood pressure effects Suspected Lupus Assessment: Recent blood work shows positive HARRIETT (1.8, normal less than 1.4) and homogeneous pattern associated with lupus. Patient scheduled for rheumatology follow-up on October 15 and for further evaluation and explanation of results. Plan: - Await rheumatology evaluation and diagnosis - Monitor for lupus-related symptoms, including fatigue and mental health changes Cardiovascular Concerns Assessment: Patient reports fluctuating blood pressure and low heart rate (as low as 48 bpm during sleep, often around 58 bpm when inactive). Scheduled for cardiology evaluation including echocardiogram and stress test. Plan: - Await cardiology evaluation and recommendations - Monitor heart rate and blood pressure at home - Obtain rat culturist's input on psychiatric medications that may affect cardiovascular function (fluoxetine, propranolol, potential prazosin) Smoking Cessation Assessment: Patient reports attempts to reduce cigarette use. No current use of nicotine replacement therapy or other smoking cessation aids. Plan: - Encourage continued efforts to reduce and ultimately cease smoking - Discuss potential for nicotine replacement therapy or other smoking cessation aids at future visits follow up in 6 weeks, sooner if concerns arise 09/19/2024 Benign essential HTN (ICD-10 - I10) Mood Disorder Assessment: Patient reports ongoing depressive symptoms. Recent restart of lithium has shown some improvement. Potential exacerbation due to psychosocial stressors, including son in rehab and pending medical diagnoses. Discussed options, would like to keep current regimen the same and follow up after medical concerns are sorted out. Plans to discuss medications with rat culturist as upcoming appointment Plan: - Continue lithium 300mg daily - Continue fluoxetine 40mg daily - Continue lamotrigine 200mg twice daily - Monitor for effectiveness and side effects - Reassess need for medication adjustments after cardiology consultation Anxiety Disorder Assessment: Patient experiences ongoing anxiety with panic attacks, particularly during car rides. Reports some improvement with current management. Using propranolol and dcty-vvz-qvhpjuu anxiety patches (Blaise patches with Ashwagandha and PIEDAD) as needed. Plan: - Continue propranolol 10mg twice daily for anxiety - Encourage continued use of coping strategies for car rides (e.g., reading instead of looking out the window) - Monitor effectiveness of current medication regimen Sleep Disturbances Assessment: Patient reports difficulty maintaining sleep, waking every 1-2 hours. Recently started using CPAP but having issues with consistent use. Experiencing worsening nightmares, describing feeling of suffocation and inability to wake up. Plan: - Encourage consistent CPAP use - Consider prazosin for nightmares, pending rat culturist approval due to potential blood pressure effects Suspected Lupus Assessment: Recent blood work shows positive HARRIETT (1.8, normal less than 1.4) and homogeneous pattern associated with lupus. Patient scheduled for rheumatology follow-up on October 15 and for further evaluation and explanation of results. Plan: - Await rheumatology evaluation and diagnosis - Monitor for lupus-related symptoms, including fatigue and mental health changes Cardiovascular Concerns Assessment: Patient reports fluctuating blood pressure and low heart rate (as low as 48 bpm during sleep, often around 58 bpm when inactive). Scheduled for cardiology evaluation including echocardiogram and stress test. Plan: - Await cardiology evaluation and recommendations - Monitor heart rate and blood pressure at home - Obtain rat culturist's input on psychiatric medications that may affect cardiovascular function (fluoxetine, propranolol, potential prazosin) Smoking Cessation Assessment: Patient reports attempts to reduce cigarette use. No current use of nicotine replacement therapy or other smoking cessation aids. Plan: - Encourage continued efforts to reduce and ultimately cease smoking - Discuss potential for nicotine replacement therapy or other smoking cessation aids at future visits follow up in 6 weeks, sooner if concerns arise 09/19/2024 Obstructive sleep apnea (adult) (pediatric) (ICD-10 - G47.33) Mood Disorder Assessment: Patient reports ongoing depressive symptoms. Recent restart of lithium has shown some improvement. Potential exacerbation due to psychosocial stressors, including son in rehab and pending medical diagnoses. Discussed options, would like to keep current regimen the same and follow up after medical concerns are sorted out. Plans to discuss medications with rat culturist as upcoming appointment Plan: - Continue lithium 300mg daily - Continue fluoxetine 40mg daily - Continue lamotrigine 200mg twice daily - Monitor for effectiveness and side effects - Reassess need for medication adjustments after cardiology consultation Anxiety Disorder Assessment: Patient experiences ongoing anxiety with panic attacks, particularly during car rides. Reports some improvement with current management. Using propranolol and jwma-qmi-gwhymep anxiety patches (Blaise patches with Ashwagandha and PIEDAD) as needed. Plan: - Continue propranolol 10mg twice daily for anxiety - Encourage continued use of coping strategies for car rides (e.g., reading instead of looking out the window) - Monitor effectiveness of current medication regimen Sleep Disturbances Assessment: Patient reports difficulty maintaining sleep, waking every 1-2 hours. Recently started using CPAP but having issues with consistent use. Experiencing worsening nightmares, describing feeling of suffocation and inability to wake up. Plan: - Encourage consistent CPAP use - Consider prazosin for nightmares, pending rat culturist approval due to potential blood pressure effects Suspected Lupus Assessment: Recent blood work shows positive HARRIETT (1.8, normal less than 1.4) and homogeneous pattern associated with lupus. Patient scheduled for rheumatology follow-up on October 15 and for further evaluation and explanation of results. Plan: - Await rheumatology evaluation and diagnosis - Monitor for lupus-related symptoms, including fatigue and mental health changes Cardiovascular Concerns Assessment: Patient reports fluctuating blood pressure and low heart rate (as low as 48 bpm during sleep, often around 58 bpm when inactive). Scheduled for cardiology evaluation including echocardiogram and stress test. Plan: - Await cardiology evaluation and recommendations - Monitor heart rate and blood pressure at home - Obtain rat culturist's input on psychiatric medications that may affect cardiovascular function (fluoxetine, propranolol, potential prazosin) Smoking Cessation Assessment: Patient reports attempts to reduce cigarette use. No current use of nicotine replacement therapy or other smoking cessation aids. Plan: - Encourage continued efforts to reduce and ultimately cease smoking - Discuss potential for nicotine replacement therapy or other smoking cessation aids at future visits follow up in 6 weeks, sooner if concerns arise 09/19/2024 Nicotine use (ICD-10 - Z72.0) Mood Disorder Assessment: Patient reports ongoing depressive symptoms. Recent restart of lithium has shown some improvement. Potential exacerbation due to psychosocial stressors, including son in rehab and pending medical diagnoses. Discussed options, would like to keep current regimen the same and follow up after medical concerns are sorted out. Plans to discuss medications with rat culturist as upcoming appointment Plan: - Continue lithium 300mg daily - Continue fluoxetine 40mg daily - Continue lamotrigine 200mg twice daily - Monitor for effectiveness and side effects - Reassess need for medication adjustments after cardiology consultation Anxiety Disorder Assessment: Patient experiences ongoing anxiety with panic attacks, particularly during car rides. Reports some improvement with current management. Using propranolol and xctw-ntp-eiuzjck anxiety patches (Blaise patches with Ashwagandha and PIEDAD) as needed. Plan: - Continue propranolol 10mg twice daily for anxiety - Encourage continued use of coping strategies for car rides (e.g., reading instead of looking out the window) - Monitor effectiveness of current medication regimen Sleep Disturbances Assessment: Patient reports difficulty maintaining sleep, waking every 1-2 hours. Recently started using CPAP but having issues with consistent use. Experiencing worsening nightmares, describing feeling of suffocation and inability to wake up. Plan: - Encourage consistent CPAP use - Consider prazosin for nightmares, pending rat culturist approval due to potential blood pressure effects Suspected Lupus Assessment: Recent blood work shows positive HARRIETT (1.8, normal less than 1.4) and homogeneous pattern associated with lupus. Patient scheduled for rheumatology follow-up on October 15 and for further evaluation and explanation of results. Plan: - Await rheumatology evaluation and diagnosis - Monitor for lupus-related symptoms, including fatigue and mental health changes Cardiovascular Concerns Assessment: Patient reports fluctuating blood pressure and low heart rate (as low as 48 bpm during sleep, often around 58 bpm when inactive). Scheduled for cardiology evaluation including echocardiogram and stress test. Plan: - Await cardiology evaluation and recommendations - Monitor heart rate and blood pressure at home - Obtain rat culturist's input on psychiatric medications that may affect cardiovascular function (fluoxetine, propranolol, potential prazosin) Smoking Cessation Assessment: Patient reports attempts to reduce cigarette use. No current use of nicotine replacement therapy or other smoking cessation aids. Plan: - Encourage continued efforts to reduce and ultimately cease smoking - Discuss potential for nicotine replacement therapy or other smoking cessation aids at future visits follow up in 6 weeks, sooner if concerns arise 09/19/2024 Encounter for screening for depression (ICD-10 - Z13.31) Mood Disorder Assessment: Patient reports ongoing depressive symptoms. Recent restart of lithium has shown some improvement. Potential exacerbation due to psychosocial stressors, including son in rehab and pending medical diagnoses. Discussed options, would like to keep current regimen the same and follow up after medical concerns are sorted out. Plans to discuss medications with rat culturist as upcoming appointment Plan: - Continue lithium 300mg daily - Continue fluoxetine 40mg daily - Continue lamotrigine 200mg twice daily - Monitor for effectiveness and side effects - Reassess need for medication adjustments after cardiology consultation Anxiety Disorder Assessment: Patient experiences ongoing anxiety with panic attacks, particularly during car rides. Reports some improvement with current management. Using propranolol and mavt-bum-czgrpkd anxiety patches (Blaise patches with Ashwagandha and PIEDAD) as needed. Plan: - Continue propranolol 10mg twice daily for anxiety - Encourage continued use of coping strategies for car rides (e.g., reading instead of looking out the window) - Monitor effectiveness of current medication regimen Sleep Disturbances Assessment: Patient reports difficulty maintaining sleep, waking every 1-2 hours. Recently started using CPAP but having issues with consistent use. Experiencing worsening nightmares, describing feeling of suffocation and inability to wake up. Plan: - Encourage consistent CPAP use - Consider prazosin for nightmares, pending rat culturist approval due to potential blood pressure effects Suspected Lupus Assessment: Recent blood work shows positive HARRIETT (1.8, normal less than 1.4) and homogeneous pattern associated with lupus. Patient scheduled for rheumatology follow-up on October 15 and for further evaluation and explanation of results. Plan: - Await rheumatology evaluation and diagnosis - Monitor for lupus-related symptoms, including fatigue and mental health changes Cardiovascular Concerns Assessment: Patient reports fluctuating blood pressure and low heart rate (as low as 48 bpm during sleep, often around 58 bpm when inactive). Scheduled for cardiology evaluation including echocardiogram and stress test. Plan: - Await cardiology evaluation and recommendations - Monitor heart rate and blood pressure at home - Obtain rat culturist's input on psychiatric medications that may affect cardiovascular function (fluoxetine, propranolol, potential prazosin) Smoking Cessation Assessment: Patient reports attempts to reduce cigarette use. No current use of nicotine replacement therapy or other smoking cessation aids. Plan: - Encourage continued efforts to reduce and ultimately cease smoking - Discuss potential for nicotine replacement therapy or other smoking cessation aids at future visits follow up in 6 weeks, sooner if concerns arise Plan Of Treatment Medication Medication Name Sig Start Date Stop Date Notes Propranolol HCl 10 MG 1 tablet on an emp ty stomach Orally twice a day for 28 days Asharoken Carbonate ER 300 mg 1 tablet at bedtime oral daily for 28 days lamoTRIgine 200 mg 1 tablet oral twice a day for 28 days FLUoxetine HCl 40 MG 1 capsule Orally On ce a day for 28 days Next Appt Details Follow Up: 6 Weeks, Reason: Provider Name:Ale Nelson, 10/15/2024 09:00:00 AM, [address], [address], [address], Provider Name:Ale Nelson, 11/16/2024 08:00:00 AM, [address], [place] [address], [address], Provider Name:Kacy sosa, 11/19/2024 09:00:00 AM, [address], [place] [address], [address], Provider Name:Ale Nelson, 12/20/2024 08:00:00 AM, [address], [place] [address], [address], Progress Notes * JOSE RUCKERIDOB:1970 ( 54 yo F)Acc No.[id number]:09/19/2024 Patient: JEREMIAH MERCADO Provider: Jordyn Marroquin :1970 A ge:54 Y S ex:Female Date:09/19/2024 Address:[address] [place], [place] [id number] Pcp:Rachell New PA-C Subjective: * Chief Complaints: * 1 month f/u * HPI: D epression screening: PHQ-9 L ittle interest or pleasure in doing things?Nearly every day F eeling down, depressed, or hopeless M ore than half the days T rouble falling or staying asleep, or sleeping too much N early every day F eeling tired or having little energy N early every day P oor appetite or overeating M ore than half the days F eeling bad about yourself or that you are a failure, or have let yourself or your family down N early every day T rouble concentrating on things, such as reading the newspaper or watching television M ore than half the days M oving or speaking so slowly that other people could have noticed; or the opposite, being so fidgety or restless that you have been moving around a lot more than usual N early every day T houghts that you would be better off or of hurting yourself in some way N ot at all T otal Score 2 1 I nterpretation S evere Depression Intervention D epression Screening Findings P ositve [facility], Patient follow-up to return when and if necessary S uicide Risk Assessment Performed 0 09/19/2024 A dditional Evaluation for Depression P sychiatric interview and evaluation N gino of the standardized tool used for adult depression screening: P atient Health Questionnaire (PHQ-9) D epression Screening: KHRIS-7 (2018 Edition) F eeling nervous, anxious, or on edge N early every day N ot being able to stop or control worrying?Nearly every day W orrying too much about different things N early every day T rouble relaxing N early every day B eing so restless that it is hard to sit still N early every day B ecoming easily annoyed or irritable N early every day F eeling afraid as if something awful might happen N early every day T otal KHRIS-7 Score 2 1 I nterpretation of Total ( 15 and over) Severe H istory of Presenting Problem: 54 y/o female, [facility], presents for follow up for bipolar d/o with psychosis, anxiety, borderline personality d/o, tardive dyskinesia. Last visit restarted lithium due to concerns of worsening mood and anxiety after discontinuation. She was diagnosed sleep apnea and was just getting started with CPAP therapy. Reports today struggling with ongoing mood and anxiety problems, sleep disturbances, and multiple physical health issues. She reports her mood and anxiety have been pretty bad recently, stating she's going through a lot. Reports feeling overwhelmed and unable to calm herself down at times. Sleep continues to be problematic. Has been struggling to keep her CPAP on t hroughout the night. Even on good nights, she reports only using it for about 4 hours. Additionally, she experiences frequent nighttime awakenings, waking up every 1-2 hours. Reports worsening nightmares, describing a sensation of a black ghost suffocating her and feeling unable to wake up or move during these episodes. She continues to experience panic attacks, particularly while in cars. She describes symptoms including chest tightness and sweaty palms during these episodes. However, she notes some improvement, stating she's getting better and now tends to read instead of looking out the window during car rides to manage her anxiety. Reports multiple ongoing medical issues and recent healthcare interactions. She recently saw a process server for a worsening rash on her face, and was prescribed two creams and an oral medication. Blood work revealed abnormal results, including a positive HARRIETT test, leading to a referral to a operations and intelligence assistant with suspicion of possible lupus. She is scheduled for further work up and also further testing t esting of echocardiogram, stress test, and barium swallow. Regarding medication adherence, she reports taking her prescribed lithium, fluoxetine, and lamotrigine as directed. She notes using qelo-xbz-whzrwab anxiety patches (containing Ashwagandha and PIEDAD) when feeling overwhelmed. The patient is attempting to quit smoking and reports gradually reducing her cigarette use. She denies any current suicidal ideation. She also denies experiencing any tongue or mouth movements, which were previously a concern with her medications. Son is in rehab with reports of intent to remain sober; she is anxious over this, afraid to put eloy into his claims and get disappointed again. Seeing Ale more frequently. ongoing notes: see 04/24/24 telephone encounter- requesting clonazepam refill early, admittedly taking them extra for anxiety/panic. Not the first occurence, provider made decision to no longer prescribe. bipolar hx: Feels hallucinations used to come and go, but pretty constant. Has also had mood problems, does not feel she has ever had psychosis without a mood episode. P ast Psychiatric Medications: Klonopin, Xanax, Seroquel, L atuda, R isperdal, D epakote, O ne of the medicines made my mouth move all the time; t razodone- not effective, v raylar- mouth movements, A mbien, lexapro; olanzapine- weight gain/ineffective; rexulti- tongue movements; lithium- ineffective. * ROS: G eneral / Constitutional: Patient complains of c hange in appetite, sleep disturbance, weight loss (see HPI). C ardiovascular: Patient denies c hest pain, dizziness, palpitations, swelling in hands / feet. G astrointestinal: Patient denies a bdominal pain, change in bowel habits, nausea, vomiting, difficulty swallowing. N eurologic: Patient denies b alance difficulty, confusion, dizziness, fainting, headache, irritability, tremor, tic, seizures. P sychiatric: Patient denies s uicidal thoughts, psychosis, auditory / visual hallucinations, delusions, linette. C laura S HPI for more details. P atient not eligible due to active diagnosis of hypertension: G 9744 Patient not eligible due to active diagnosis of hypertension: G 9744. * Medical History: * Surgical History: S inus surgery Other * Hospitalization/Major Diagno stic Procedure: * Family History: S on: ADHD. M [...] Control (Standard) T obacco use: C urrent smoker H ow often do you smoke cigarettes? E very day H ow many cigarettes a day do you smoke? 6 -10 H ow soon after you wake up do you smoke your first cigarette? 6 -30 minutes A re you interested in quitting? T hinking about quitting D rinks ETOH on weekends. Denies dependence. * Medications: T akinglamoTRIgine 200 mg Tablet TAKE 1 TABLET BY MOUTH TWICE A DAY metFORMIN HCl , Notes to Pharmacist: unkown mgAlbuterol Sulfate (2.5 MG/3ML) 0.083% Nebulization Solution Inhalation Cetirizine HCl 10 MG Tablet Oral Breo Ellipta 200-25 MCG/INH Aerosol Powder Breath Activated Inhalation Cholecalciferol 25 MCG (1000 UT) Capsule Oral Fluticasone Propionate Diskus 50 MCG/ACT Aerosol Powder Breath Activated Inhalation , Notes to Pharmacist: *Reorder from [employer] for eRx and Interaction Alerts*Omeprazole 40 MG Capsule Delayed Release Oral Meloxicam 15 MG Tablet Oral Rosuvastatin Calcium 20 MG Tablet Oral Symbicort 160-4.5 MCG/ACT Aerosol Inhalation ProAir HFA 108 (90 Base) MCG/ACT Aerosol Solution Inhalation Nebivolol HCl 5 MG Tablet TAKE 1 TABLET (5 MG TOTAL) BY MOUTH DAILY. Oral lamoTRIgine 200 mg Tablet 1 tablet oral twice a day FLUoxetine HCl 40 MG Capsule 1 capsule Orally Once a day Asharoken Carbonate ER 300 mg Tablet Extended Release 1 tablet at bedtime oral daily Propranolol HCl 10 MG Tablet TAKE 1 TABLET BY MOUTH TWICE A DAY ON EMPTY STOMACH FOR 30 DAYS Taking lamoTRIgine 200 mg Tablet TAKE 1 TABLET BY MOUTH TWICE A DAY Taking metFORMIN HCl , Notes to Pharmacist: unkown mgTaking Albuterol Sulfate (2.5 MG/3ML) 0.083% Nebulization Solution Inhalation Taking Cetirizine HCl 10 MG Tablet Oral Taking Breo Ellipta 200-25 MCG/INH Aerosol Powder Breath Activated Inhalation Taking Cholecalciferol 25 MCG (1000 UT) Capsule Oral Taking Fluticasone Propionate Diskus 50 MCG/ACT Aerosol Powder Breath Activated Inhalation , Notes to Pharmacist: *Reorder from [employer] for eRx and Interaction Alerts*Taking Omeprazole 40 MG Capsule Delayed Release Oral Taking Meloxicam 15 MG Tablet Oral Taking Rosuvastatin Calcium 20 MG Tablet Oral Taking Symbicort 160-4.5 MCG/ACT Aerosol Inhalation Taking ProAir HFA 108 (90 Base) MCG/ACT Aerosol Solution Inhalation Taking Nebivolol HCl 5 MG Tablet TAKE 1 TABLET (5 MG TOTAL) BY MOUTH DAILY. Oral Taking lamoTRIgine 200 mg Tablet 1 tablet oral twice a day Taking FLUoxetine HCl 40 MG Capsule 1 capsule Orally Once a day Taking Asharoken Carbonate ER 300 mg Tablet Extended Release 1 tablet at bedtime oral daily Taking Propranolol HCl 10 MG Tablet TAKE 1 TABLET BY MOUTH TWICE A DAY ON EMPTY STOMACH FOR 30 DAYS Not-TakingNaproxen 375 MG Tablet Oral Diclofenac Sodium 1% Gel Transdermal Cyclobenzaprine HCl 10 MG Tablet Oral HYDROcodone-Acetaminophen 5- 325 MG Tablet Oral Ingrezza 80 mg Capsule 1 capsule oral daily clonazePAM 0.5 mg Tablet 1 tablet oral twice a day Dexilant 60 MG Capsule Delayed Release Oral Not-Taking Naproxen 375 MG Tablet Oral Not-Taking Diclofenac Sodium 1% Gel Transdermal Not-Taking Cyclobenzaprine HCl 10 MG Tablet Oral Not-Taking HYDROcodone- Acetaminophen 5-325 MG Tablet Oral Not-Taking Ingrezza 80 mg Capsule 1 capsule oral daily Not-Taking clonazePAM 0.5 mg Tablet 1 tablet oral twice a day Not-Taking Dexilant 60 MG Capsule Delayed Release Oral DiscontinuedFLUoxetine HCl 20 MG Capsule 1 capsule in the morning Oral daily Medication List reviewed and reconciled with the patientDiscontinued FLUoxetine HCl 20 MG Capsule 1 capsule in the morning Oral daily Medication List reviewed and reconciled with the patient * Allergies: N .K.D.A.no[Allergies Verified] Objective: * Vitals: B P:118/79mm Hg, HR:79/min, Wt:229lbs, Wt-k.87 kg, Ht: 67.00 in, Ht-cm: 170.18 cm, BMI:35.86Index, Body Surface Area: 2.21. * Examination: P sychiatry: Appearance: f atigued. Abnormal body movements: n one noted, hx of tardive dykinesia. Affect / mood: a nxious, sad. Attention: g ood, normal in conversation. Attitude: c ooperative. Homicidal ideation: n one. Suicidal ideation: n one. Memory status: n o impairment noted. Delusions: n o. Hallucinations: n o. Insight: f air. Intellectual functioning: n o impairment noted. Judgement: f air. Orientation: a wake, alert and oriented x 3. Speech / language: a ppropriate pitch/modulation, clear and coherent, normal rate, volume, and articulation (RVR), proper grammar used. Thought content: a ppropriate. Thought process: i ntact. Assessment: * Assessment: 1. B ipolar disorder, current episode depressed, severe, without psychotic features - F31.4 (Primary) 2 . G eneralized anxiety disorder - F41.1 3 . B orderline personality disorder - F60.3 4 . P ost-traumatic stress disorder, chronic - F43.12 5 . B enign essential HTN - I10 6 . O bstructive sleep apnea (adult) (pediatric) - G47.33 7 . N icotine use - Z72.0 8 . E ncounter for screening for depression - Z13.31 Mood Disorder Assessment: Patient reports ongoing depressive symptoms. Recent restart of lithium has shown some improvement. Potential exacerbation due to psychosocial stressors, including son in rehab and pending medical diagnoses. Discussed options, would like to keep current regimen the same and follow up after medical concerns are sorted out. Plans to discuss medications with rat culturist as upcoming appointment Plan: - Continue lithium 300mg daily - Continue fluoxetine 40mg daily - Continue lamotrigine 200mg twice daily - Monitor for effectiveness and side effects - Reassess need for medication adjustments after cardiology consultation Anxiety Disorder Assessment: Patient experiences ongoing anxiety with panic attacks, particularly during car rides. Reports some improvement with current management. Using propranolol and kyzi-eop-kklmyou anxiety patches (Blaise patches with Ashwagandha and PIEDAD) as needed. Plan: - Continue propranolol 10mg twice daily for anxiety - Encourage continued use of coping strategies for car rides (e.g., reading instead of looking out the window) - Monitor effectiveness of current medication regimen Sleep Disturbances Assessment: Patient reports difficulty maintaining sleep, waking every 1-2 hours. Recently started using CPAP but having issues with consistent use. Experiencing worsening nightmares, describing feeling of suffocation and inability to wake up. Plan: - Encourage consistent CPAP use - Consider prazosin for nightmares, pending rat culturist approval due to potential blood pressure effects Suspected Lupus Assessment: Recent blood work shows positive HARRIETT (1.8, normal less than 1.4) and homogeneous pattern associated with lupus. Patient scheduled for rheumatology follow-up on October 15 and for further evaluation and explanation of results. Plan: - Await rheumatology evaluation and diagnosis - Monitor for lupus-related symptoms, including fatigue and mental health changes Cardiovascular Concerns Assessment: Patient reports fluctuating blood pressure and low heart rate (as low as 48 bpm during sleep, often around 58 bpm when inactive). Scheduled for cardiology evaluation including echocardiogram and stress test. Plan: - Await cardiology evaluation and recommendations - Monitor heart rate and blood pressure at home - Obtain rat culturist's input on psychiatric medications that may affect cardiovascular function (fluoxetine, propranolol, potential prazosin) Smoking Cessation Assessment: Patient reports attempts to reduce cigarette use. No current use of nicotine replacement therapy or other smoking cessation aids. Plan: - Encourage continued efforts to reduce and ultimately cease smoking - Discuss potential for nicotine replacement therapy or other smoking cessation aids at future visits follow up in 6 weeks, sooner if concerns arise Plan: * Treatment: 2. G eneralized anxiety disorder Refill FLUoxetine HCl Capsule, 40 MG, 1 capsule, Orally, Once a day, 28 days, 28 Capsule, Refills 2; R efill Propranolol HCl Tablet, 10 MG, 1 tablet on an empty stomach Orally twice a day, 28 days, 56, Refills 2. * Procedure Codes: 9 6127 BEHAV ASSMT W/SCORE & DOCD/STAND [id number] Pt not korina d/t act dig [id number] Pt scrn tbco and id as [id number] CLIN DEPRESSION SCREEN [id number] VISIT COMPLEXITY INHERENT TO ONGOING CARE RELATED TO A PATIENT'S SINGLE, SERIOUS CONDITION OR A COMPLEX CONDITION * Preventive Medicine: Counseling: C ommunication to patient: Counseled the Patient on tobacco use; cessation provided 0 09/19/2024 Counseled the Patient on smoking cessation; education provided 0 09/19/2024 Counseled the Patient on smoking effects; education provided 0 09/19/2024 S moking Cessation counseling done Discuss the importance of quitting smoking. * Follow Up: 6 Weeks * Billing Information: * Visit Code: 03700 OFFICE OUTPATIENT VISIT 25 MINUTES DETAILED HISTORY AND EXAM/MODERATE MEDICAL DECISION MAKING. * Procedure Codes: 98974 BEHAV ASSMT W/SCORE & DOCD/STAND INSTRUMENT. G9744 Pt not korina d/t act dig htn. G9902 Pt scrn tbco and id as user. G8431 CLIN DEPRESSION SCREEN DOC. G2211 VISIT COMPLEXITY INHERENT TO ONGOING CARE RELATED TO A PATIENT'S SINGLE, SERIOUS CONDITION OR A COMPLEX CONDITION. * Sign off status: Completed true * Provider: Jordyn Marroquin Date: 0 09/19/2024 Generated for Verna callahan/Katia/Avila on: 0 10/03/2024 09:47 AM CDT History and Physical Notes * HPI (History of Present Illness) Category Sub-Category Detail Notes Category Not es History of Presenting Problem 54 y/o female, [facility], presents for follow up for bipolar d/o with psychosis, anxiety, borderline personality d/o, tardive dyskinesia. Last visit restarted lithium due to concerns of worsening mood and anxiety after discontinuation. She was diagnosed sleep apnea and was just getting started with CPAP therapy. Reports today struggling with ongoing mood and anxiety problems, sleep disturbances, and multiple physical health issues. She reports her mood and anxiety have been pretty bad recently, stating she's going through a lot. Reports feeling overwhelmed and unable to calm herself down at times. Sleep continues to be problematic. Has been struggling to keep her CPAP on throughout the night. Even on good nights, she reports only using it for about 4 hours. Additionally, she experiences frequent nighttime awakenings, waking up every 1-2 hours. Reports worsening nightmares, describing a sensation of a black ghost suffocating her and feeling unable to wake up or move during these episodes. She continues to experience panic attacks, particularly while in cars. She describes symptoms including chest tightness and sweaty palms during these episodes. However, she notes some improvement, stating she's getting better and now tends to read instead of looking out the window during car rides to manage her anxiety. Reports multiple ongoing medical issues and recent healthcare interactions. She recently saw a process server for a worsening rash on her face, and was prescribed two creams and an oral medication. Blood work revealed abnormal results, including a positive HARRIETT test, leading to a referral to a operations and intelligence assistant with suspicion of possible lupus. She is scheduled for further work up and also further testing testing of echocardiogram, stress test, and barium swallow. Regarding medication adherence, she reports taking her prescribed lithium, fluoxetine, and lamotrigine as directed. She notes using dapu-kyf-sazzbqz anxiety patches (containing Ashwagandha and PIEDAD) when feeling overwhelmed. The patient is attempting to quit smoking and reports gradually reducing her cigarette use. She denies any current suicidal ideation. She also denies experiencing any tongue or mouth movements, which were previously a concern with her medications. Son is in rehab with reports of intent to remain sober; she is anxious over this, afraid to put eloy into his claims and get disappointed again. Seeing Ale more frequently. ongoing notes: see 04/24/24 telephone encounter- requesting clonazepam refill early, admittedly taking them extra for anxiety/panic. Not the first occurence, provider made decision to no longer prescribe. bipolar hx: Feels hallucinations used to come and go, but pretty constant. Has also had mood problems, does not feel she has ever had psychosis without a mood episode. Depression screening PHQ-9 Little interest or pleasure in doing things: Nearly every day Feeling down, depressed, or hopeless: Mo re than half the days Trouble falling or staying asleep, or sl eeping too much: Nearly every day Feeling tired or having little energy: N early every day Poor appetite or overeating: More than h gato the days Feeling bad about yourself o r that you are a failure, or have let yourself or your family down: Nearly every day Trouble concentrating on thi ngs, such as reading the newspaper or watching television: More than half the days Moving or speaking so slowly that other people could have noticed; or the opposite, being so fidgety or restless that you have been moving around a lot more than usual: Nearly every day Thoughts that you would be b xenia off or of hurting yourself in some way: Not at all Total Score: 21 Interpretation: Severe Depression Intervention Depression Screening Findings: P ositve Follow-Up for Depression: [facility] treatment assessment, Patient follow-up to return when and if necessary Suicide Risk Assessment Performed: 09/19 Additional Evaluation for Depression: Ps ychiatric interview and evaluation Name of the standardized too l used for adult depression screening:: Patient Health Questionnaire (PHQ-9) Depression Screening KHRIS-7 (2018 Edition) Jayme g nervous, anxious, or on edge: Nearly every day Not being able to stop or control worryi ng: Nearly every day Worrying too much about different things : Nearly every day Trouble relaxing: Nearly every day Being so restless that it is hard to sit still: Nearly every day Becoming easily annoyed or irritable: Ne yola every day Feeling afraid as if something awful fang ht happen: Nearly every day Total KHRIS-7 Score: 21 Interpretation of Total: (15 and over) S evere Examination Category Sub-Category Detail Notes Category Not es Psychiatry Appearance: fatigued Attitude: cooperative Abnormal body movements: none noted, hx of tardive dykinesia Attention: good, normal in conv ersation Orientation: awake, alert and flor ented x 3 Affect / mood: anxious, sad Speech / language: appropriate pitch/mo dulation, clear and coherent, normal rate, volume, and articulation (RVR), proper grammar used Insight: fair Judgement: fair Thought process: intact Thought content: appropriate Suicidal ideation: none Homicidal ideation: none Intellectual functioning: no impairment noted Memory status: no impairment noted Delusions: no Hallucinations: no
--- NOTE | 2024-10-03 09:51 | REHSTMBS ---
Assessment and note entered by Ana Bardales, FORM BUILDER HELPER Modified Barium Swallow Evaluation Feeding Type Recommended Oral ST Clinical Summary The above pleasant and cooperative pt was seen for an outpatient modified barium swallow. She was alert & oriented, and able to follow commands. She is currently on a regular diet and reports that it feels like that she has gas pockets in her throat; she denied choking or coughing while eating but says its an uncomfortable feeling. She reports that she has medical issues going on & at the moment possibly has lupus. Oral mucosa is normal; natural dentition is in good condition; cursory informal oral peripheral exam revealed lingual and labial structures to be normal. She was able to dry swallow on command and exhibited clear vocal quality. The patient was seated for a lateral view and presented with 5cc of thin liquid barium via spoon , pudding consistency barium via a spoon, cracker coated with barium pudding via spoon, and uncontrolled thin liquid barium. This was presented via a cup & straw. Oral preparatory and oral phase symptoms: none. Pharyngeal phase symptoms: none. Esophageal stage symptoms: none. No aspiration occurred. Impressions: Normal swallow Ability No further ST is warranted at this time.
== END 2024-10-03 09:12 | disposition home or self-care (01) ==
PROVIDERS: PCP Physician Assistant; Visit Provider Nurse Practitioner Family
DX: R13.19 Other dysphagia (principal); Q39.4 Esophageal web; K44.9 Diaphragmatic hernia without obstruction or gangrene; K21.9 Gastro-esophageal reflux disease without esophagitis
CPT/HCPCS: 92611

== ENCOUNTER 2024-10-29 10:52 | Emergency (ER) | payer MEDICARE, MEDICAID, SELFPAY ==
[2024-10-29 11:05] VITALS: BP 160/79; PULSE 74; RESP 20; TEMP 36.4; O2SAT 98
--- NOTE | 2024-10-29 12:11 | ED_ITS ---
HPI - GI Bleed General Chief complaint: GI Bleed <La Willis PA-C - Last Filed: 10/29/24 17:43> Stated complaint: GI bleed <La Willis PA-C - Last Filed: 10/29/24 17:43> Time Seen by Provider: 10/29/24 12:11 <La Willis PA-C - Last Filed: 10/29/24 17:43> Focused HPI: This is a 54 year old female that presents to the ER for GI bleeding. Reports initially she saw bright red in her stool. Reports it has now turned black. Reports nausea, anorexia, weight loss. She does see Dr. Jm Naylor currently. GENERAL: Well-appearing, well-nourished, and in no acute distress. HEAD: Normocephalic, atraumatic. CHEST: Clear to auscultation. ?No respiratory distress. HEART: Regular rate and rhythm.? NEURO: ?Alert and oriented x3. Patient screened in triage and initial orders placed.? ?Additional care and disposition to be based upon?diagnostic testing and treatment. <La Willis PA-C - Last Filed: 10/29/24 17:43> History of Present Illness HPI Narrative: Breathe HPI. Reports weeks of diarrhea. Had seen GI. They are going to do outpatient stool studies but she thought it was 2 gross to handle the stool at home. She had some bright red blood last week that has gone away. She took Pepto-Bismol yesterday and now her stool is a darker color. She is not on any blood thinners. <Johny Vargas MD - Last Filed: 10/29/24 15:34> Related Data Home medications: Home Medications ?Medication ?Instructions ?Recorded ?Confirmed ?Last Taken ?Type albuterol sulfate 90 mcg/actuation 1 puff inhalation DIRECTED 11/22/19 10/29/24 08/23/24 History aerosol inhaler (Ventolin HFA) escitalopram oxalate 5 mg tablet 5 mg PO DIRECTED 11/22/19 10/12/24 08/23/24 History lamotrigine 150 mg tablet 150 mg PO DIRECTED 11/22/19 10/12/24 08/23/24 History meclizine 12.5 mg tablet 12.5 mg PO DIRECTED 11/22/19 10/12/24 08/23/24 History rosuvastatin 10 mg tablet 10 mg PO DIRECTED 11/22/19 10/12/24 11/29/23 History fluticasone furoate 200 1 inh inhalation DIRECTED 11/23/23 10/12/24 08/23/24 History mcg-vilanterol 25 mcg/dose inhalation powder (Breo Ellipta) brexpiprazole 1 mg tablet (Rexulti) 1 mg PO DAILY 08/02/24 10/29/24 08/23/24 History lisinopril 20 mg tablet 20 mg PO DAILY 08/20/24 10/12/24 08/23/24 History propranolol 10 mg tablet mg PO DAILY 08/20/24 10/12/24 08/23/24 History <La Willis PA-C - Last Filed: 10/29/24 17:43> Allergies/Adverse reactions: Allergies Allergy/AdvReac Type Severity Reaction Status Date / Time No Known Allergies Allergy Unknown Verified 10/29/24 12:37 <La Willis PA-C - Last Filed: 10/29/24 17:43> Review of Systems 2 Review of Systems: All systems reviewed & are unremarkable except as noted in HPI and below <Johny Vargas MD - Last Filed: 10/29/24 15:34> Constitutional: Constitutional: Reports no additional constitutional complaints <Johny Vargas MD - Last Filed: 10/29/24 15:34> ENT: Reports system reviewed and no additional complaints, except as documented <Johny Vargas MD - Last Filed: 10/29/24 15:34> Cardiovascular: Cardiovascular: Reports no additional cardiovascular complaints <Johny Vargas MD - Last Filed: 10/29/24 15:34> Respiratory: Respiratory: Reports no additional respiratory complaints < Johny Vargas MD - Last Filed: 10/29/24 15:34> Gastrointestinal: Gastrointestinal: Reports no additional gastrointestinal complaints <Johny Vargas MD - Last Filed: 10/29/24 15:34> PMFSH Past Medical History Medical History: Medical History COPD (chronic obstructive pulmonary disease) Bipolar disorder <La Willis PA-C - Last Filed: 10/29/24 17:43> Family History Family History: Family History Mother Family history of cardiovascular disease Family history of malignant neoplasm of gastrointestinal tract Depression Sibling Hypertension Family history of coronary artery disease <La Willis PA-C - Last Filed: 10/29/24 17:43> Social History Social History: Social History Years smoked: 30 Smoking status: Current every day smoker Tobacco type: cigarettes Alcohol intake: current Drinks per week: 6 Alcohol use details: states 6-10 daily but because shes on vacation Substance use: never Substance use type: does not use Do You Feel Safe in your Home?: Yes Lack of Transportation: No Lack of Food: Never True Current Housing: I Have Housing Concerned About Future Housing: No Difficulty Paying Gas/Electric Bills: No Difficulty Paying for Meds: No Currently Unemployed: Decline to Answer Education: High School Diploma/GED Difficulty w/ Childcare or Family Care: No Living arrangements: with family Gender identity (if verbalized by the patient): Female Spiritual care concerns: No <La Willis PA-C - Last Filed: 10/29/24 17:43> Exam 2 Narrative: GENERAL: Well-appearing, well-nourished, and in no acute distress. HEAD: Normocephalic, atraumatic. ENT: Mucous membranes moist. NECK: Supple. CHEST: Clear to auscultation. No respiratory distress. HEART: Regular rate and rhythm. Normal peripheral pulses. ABDOMEN: Soft, nontender, nondistended. EXTREMITIES: Normal range of motion. No edema. SKIN: Warm, dry, no rash. NEURO: Alert and oriented x3. <Johny Vargas MD - Last Filed: 10/29/24 15:34> Course Course Emergency Course: Patient resting comfortably. She is unable to provide any stool for a stool sample. Labs reassuring. Appropriate for discharge home and follow-up with GI. <Johny Vargas MD - Last Filed: 10/29/24 15:34> Vital Signs Vital signs: Vital Signs Temperature 97.6 F 10/29/24 11:05 Pulse Rate 74 10/29/24 11:05 Respiratory Rate 20 10/29/24 11:05 Blood Pressure 160/79 H 10/29/24 11:05 Pulse Oximetry 98 10/29/24 11:05 Oxygen Delivery Room Air 10/29/24 11:05 Temperature 97.6 F 10/29/24 11:05 Pulse Rate 83 10/29/24 15:00 Respiratory Rate 16 10/29/24 14:54 Blood Pressure 117/83 10/29/24 15:00 Pulse Oximetry 97 10/29/24 14:54 Oxygen Delivery Room Air 10/29/24 11:05 <La Willis PA-C - Last Filed: 10/29/24 17:43> Vital Signs Temperature 97.6 F 10/29/24 11:05 Pulse Rate 74 10/29/24 11:05 Respiratory Rate 20 10/29/24 11:05 Blood Pressure 160/79 H 10/29/24 11:05 Pulse Oximetry 98 10/29/24 11:05 Oxygen Delivery Room Air 10/29/24 11:05 Temperature 97.6 F 10/29/24 11:05 Pulse Rate 83 10/29/24 15:00 Respiratory Rate 16 10/29/24 14:54 Blood Pressure 117/83 10/29/24 15:00 Pulse Oximetry 97 10/29/24 14:54 Oxygen Delivery Room Air 10/29/24 11:05 <Johny Vargas MD - Last Filed: 10/29/24 15:34> MDM - GI Bleed Lab Data Result diagrams: 10/29/24 12:32 10/29/24 12:32 <La Willis PA-C - Last Filed: 10/29/24 17:43> Labs: Lab Results 10/29/24 Range/Units 12:32 WBC 9.0 (4.5-10.0) K/mm3 RBC 4.44 (4.2-5.4) M/mm3 Hgb 14.3 (12.0-15.0) g/dL Hct 44.5 (37.0-47.0) % MCV 100.2 H (80-100) fl MCH 32.2 (26-34) pg MCHC 32.1 (32-36) g/dl RDW 13.8 (11.5-14.5) % Plt Count 225 (150-375) k/mm3 MPV 9.0 (7.4-10.4) fl Immature Gran % (Auto) 0.3 (0-0.5) % Neut % (Auto) 77.3 H (45.5-73.1) % Lymph % (Auto) 13.4 L (18.3-44.2) % [place] % (Auto) 7.6 (2.6-8.5) % Eos % (Auto) 1.1 (0-4.4) % Baso % (Auto) 0.3 (0.2-1.2) % Lymph # (Auto) 1.21 (0.9-3.2) K/mm3 [place] # (Auto) 0.7 H (0.1-0.6) K/mm3 Eos # (Auto) 0.1 (0-0.3) K/mm3 Baso # (Auto) 0.0 (0.0-0.1) K/mm3 Abs Immat Gran (auto) 0.03 (0.00-0.031) K/mm3 Absolute Neuts (auto) 7.0 H (1.3-6.7) K/mm3 Absolute Nucleated RBC 0.000 (0.0-0.012) K/mm3 Nucleated RBC % 0.0 (0.0-0.2) % PT 13.4 (11.1-14.7) Seconds INR 1.0 APTT 27.5 (22.3-36.8) Seconds Sodium 136 L (137-145) mmol/L Potassium 4.3 (3.4-5.0) mmol/L Chloride 101 (98-107) mmol/L Carbon Dioxide 26 (22-30) mmol/L Anion Gap 9 (4-12) mmol/L BUN 7 (7-17) mg/dL Creatinine 0.54 L (0.7-1.0) mg/dL Estim Creat Clear Calc 123 ml/min Estimated GFR > 60 (59 - ) Glucose 83 (65-110) mg/dL Calcium 9.1 (8.4-10.2) mg/dL Total Bilirubin 0.8 (0.2-1.3) mg/dL AST 36 (14-36) U/L ALT 29 (6-35) U/L Alkaline Phosphatase 82 (38-126) U/L Total Protein 7.0 (6.3-8.2) g/dL Albumin 4.2 (3.5-5.1) g/dL Blood Type A Positive Antibody Screen Negative <La Willis PA-C - Last Filed: 10/29/24 17:43> Lab Results 10/29/24 Range/Units 12:32 WBC 9.0 (4.5-10.0) K/mm3 RBC 4.44 (4.2-5.4) M/mm3 Hgb 14.3 (12.0-15.0) g/dL Hct 44.5 (37.0-47.0) % MCV 100.2 H (80-100) fl MCH 32.2 (26-34) pg MCHC 32.1 (32-36) g/dl RDW 13.8 (11.5-14.5) % Plt Count 225 (150-375) k/mm3 MPV 9.0 (7.4-10.4) fl Immature Gran % (Auto) 0.3 (0-0.5) % Neut % (Auto) 77.3 H (45.5-73.1) % Lymph % (Auto) 13.4 L (18.3-44.2) % [place] % (Auto) 7.6 (2.6-8.5) % Eos % (Auto) 1.1 (0-4.4) % Baso % (Auto) 0.3 (0.2-1.2) % Lymph # (Auto) 1.21 (0.9-3.2) K/mm3 [place] # (Auto) 0.7 H (0.1-0.6) K/mm3 Eos # (Auto) 0.1 (0-0.3) K/mm3 Baso # (Auto) 0.0 (0.0-0.1) K/mm3 Abs Immat Gran (auto) 0.03 (0.00-0.031) K/mm3 Absolute Neuts (auto) 7.0 H (1.3-6.7) K/mm3 Absolute Nucleated RBC 0.000 (0.0-0.012) K/mm3 Nucleated RBC % 0.0 (0.0-0.2) % PT 13.4 (11.1-14.7) Seconds INR 1.0 APTT 27.5 (22.3-36.8) Seconds Sodium 136 L (137-145) mmol/L Potassium 4.3 (3.4-5.0) mmol/L Chloride 101 (98-107) mmol/L Carbon Dioxide 26 (22-30) mmol/L Anion Gap 9 (4-12) mmol/L BUN 7 (7-17) mg/dL Creatinine 0.54 L (0.7-1.0) mg/dL Estim Creat Clear Calc 123 ml/min Estimated GFR > 60 (59 - ) Glucose 83 (65-110) mg/dL Calcium 9.1 (8.4-10.2) mg/dL Total Bilirubin 0.8 (0.2-1.3) mg/dL AST 36 (14-36) U/L ALT 29 (6-35) U/L Alkaline Phosphatase 82 (38-126) U/L Total Protein 7.0 (6.3-8.2) g/dL Albumin 4.2 (3.5-5.1) g/dL Blood Type A Positive Antibody Screen Negative <Johny Vargas MD - Last Filed: 10/29/24 15:34> Discharge Plan Discharge Clinical Impression: Chronic diarrhea <La Willis PA-C - Last Filed: 10/29/24 17:43> Patient Disposition: Home <La Willis PA-C - Last Filed: 10/29/24 17:43> Condition: Stable <La Willis PA-C - Last Filed: 10/29/24 17:43> Instructions: Chronic Diarrhea (ED) <La Willis PA-C - Last Filed: 10/29/24 17:43> Additional Instructions: Please drink plenty of fluids at home. Return to the emergency department if you develop high fevers, have persistent severe abdominal pain, or have bloody stools or vomit, as these could be signs of a more serious medical emergency. Return to the emergency department if you are unable to keep down liquids because of severe nausea/vomiting. <La Willis PA-C - Last Filed: 10/29/24 17:43> Patient Language: Indonesian <La Willis PA-C - Last Filed: 10/29/24 17:43> Prescriptions: No Action Rexulti 1 mg tablet 1 mg PO DAILY lamotrigine 150 mg tablet 150 mg PO DIRECTED meclizine 12.5 mg tablet 12.5 mg PO DIRECTED albuterol sulfate [Ventolin HFA] 90 mcg/actuation HFA aerosol inhaler 1 puff INHALATION DIRECTED rosuvastatin 10 mg tablet 10 mg PO DIRECTED escitalopram oxalate 5 mg tablet 5 mg PO DIRECTED propranolol 10 mg tablet PO DAILY lisinopril 20 mg tablet 20 mg PO DAILY albuterol sulfate 2.5 mg/0.5 mL solution for nebulization 5 mg inhalation Q6H PRN (Reason: shortness of breath or wheezing) Qty: 30 0RF omeprazole 40 mg capsule,delayed release(DR/EC) See Rx Instructions .ROUTE .COMPLEX Qty: 180 4RF Dose Instruction: 40 MG ORALLY TWICE DAILY BEFORE MEALS Rx Instructions: 40 MG ORALLY TWICE DAILY BEFORE MEALS fluticasone furoate-vilanterol [Breo Ellipta] 200-25 mcg/dose blister with device 1 inh INHALATION DIRECTED <La Willis PA-C - Last Filed: 10/29/24 17:43> Follow-up/Referrals: Virgen,ROD Wiley [Primary Care Provider] - 1 Week <La Willis PA-C - Last Filed: 10/29/24 17:43>
--- OUTSIDE RECORDS SUMMARY | 2024-10-29 12:40 | XMS_ITS | Clinical Summary ---
Author Organization [facility] Address [address] [place] [address] Care Team Providers Care Thread Roller Name Role Phone Inez New Primary Care Provider [phone] Allergies No known active allergies Medications rosuvastatin [...] CDT - 09/28/2024 10:32 AM CDT Emergency [facility] [place] [address] Nyla Greer MD Gelbaltazar, Vandana Cortes MD Fall Discharge Disposition: Home or Self [...] Every 3 Years 1971 Annual Physical 1974 Hepatitis C 1989 Hepatitis B Vaccines (1 of 3 - 19+ 3-dose series) 1990 Pneumococcal Vaccine: 50+ Years (1 of 2 - PCV) 1990 Cervical Cancer Screening Pa p with HPV Testing (Age 30 to 64) Every 5 Years 2001 Cervical Cancer Screening wi th HPV 2001 Zoster Vaccines (1 of 2) 2021 COVID-19 Vaccine (2023-2 5 season) 2024 11/25/2020, 10/30/2020 Mammogram Screening [...] PM CDT COLONOSCOPY Routine 05/26/2021 5:23 AM TECHNOLOGY SUPPORT ANALYST from Last 3 Months or Most Recently Relevant to Health Maintenance Results * MRI BRAIN WO CON (09/28/2024 9:38 AM CDT) Anatomical Region Laterality Modality Head Magnetic Resonan ce 09/28/2024 9:47 AM CDT Impressions 09/28/2024 9:58 AM CDT IMPRESSION: Normal appearance of the brain. Ordered By: NYLA GREER Interpreted By: Cooper Kraft MD, 09/28/2024 9:47 AM Narrative 09/28/2024 9:58 AM CDT [place] [id number] EXAMINATION: MRI brain without contrast. EXAM DATE/TIME: [...] Procedure Note Cooper Kraft MD - 09/28/[address] [address] EXAMINATION: MRI brain without contrast. EXAM DATE/TIME: [...] By: Cooper Kraft MD, 09/28/2024 9:47 AM Nyla Greer MD MRI Final Result * [...] 1:37 AM Narrative 09/28/2024 1:42 AM CDT [address] [address] EXAMINATION: CT HEAD WO CON CLINICAL HISTORY: [...] Procedure Note Kurtis Edwards MD - 09/28/[address] [address] EXAMINATION: CT HEAD WO CON CLINICAL HISTORY: [...] AMPHETAMINE (U) NEGATIVE NEGATIVE 12:17 AM CDT [facility] BARBITURATES SCREEN (U) NEGATIVE NEGATIVE 09/28/2024 12:17 AM CDT [facility] BENZODIAZEPINES SCREEN (U) NEGATIVE NEGATIVE 09/28/2024 12:17 AM CDT [facility] CANNABINOIDS SCREEN (U) NEGATIVE NEGATIVE 09/28/2024 12:17 AM CDT [facility] COCAINE METABOLITES (U) NEGATIVE NEGATIVE 09/28/2024 12:17 AM CDT [facility] METHADONE (U) NEGATIVE NEGATIVE 09/28/2024 12:17 AM CDT [facility] OPIATE SCREEN (U) NEGATIVE NEGATIVE 025 12:17 AM CDT [facility] PHENCYCLIDINE PCP (U) NEGATIVE NEGATIVE 09/28/2024 12:17 AM CDT [facility] Comment: NOTE: RESULTS OF THIS DRUG SCREEN SHOULD BE USED FOR MEDICAL PURPOSES ONLY AND NOT FOR LEGAL OR EMPLOYMENT PURPOSES. POSITIVE RESULTS ARE NOT CONFIRMED. MEDICATIONS CONTAINING EPHEDRINE MAY CAUSE FALSE POSITIVE AMPHETAMINE CALL [phone], LAB, TO REQUEST CONFIRMATION TESTING. IF CREATININE IS <40 mg/dL. RECOLLECTION IS SUGGESTED. AMPHETAMINE- 500 NG/ML BARBITURATE- 200 NG/ML BENZODIAZEPINES- 200 NG/ML THC- 50 NG/ML COCAINE- 150 NG/ML METHADONE- 300 NG/ML OPIATE- 300 MG/ML PCP- 25 NG/ML CREATININE (U) 25.6(L) 28 - 217 MG/DL 09/28/2024 12:17 AM CDT [facility] URINE SPECIMEN / Unknown 09/27/2024 11:55 PM CDT us Nyla Greer MD URINE ORDERABLES Lisa hernandez Result [facility] [address] [place] [address], * XR CHEST PORTABLE (09/27/2024 10:40 PM CDT) Anatomical Region Laterality Modality Chest Radiographic Jeanine ging 09/27/2024 10:5 7 PM CDT Impressions 09/27/2024 11:01 PM CDT IMPRESSION: 1. Moderate to large size retrocardiac hiatal hernia. 2. Mild atelectasis in bilateral lower lobes with no other acute pulmonary disease. Referred By: Interpreted By: Ladonna Bang MD, 09/27/2024 10:57 PM Narrative 09/27/2024 11:01 PM CDT [address] [address] EXAMINATION: XR Portable CXR, 1 View INDICATION: Trauma, fell down steps COMPARISON: CT chest, abdomen and pelvis with contrast 09/27/2024. FINDINGS: There is a moderate to large size retrocardiac hiatal hernia that is better seen on the comparison CT chest exam. threat monitoring analyst leads overlie the chest and included upper abdomen. The cardiomediastinal silhouette is within normal limits. threat monitoring analyst leads overlie the upper abdomen. Pulmonary vascularity is normal. There is mild atelectasis in bilateral lower lobes. Remaining lungs are clear with no acute infiltrate, consolidation, pneumothorax, or pleural effusion. No acute osseous abnormality. Procedure Note Ladonna Bang MD - 09/27/[address] [address] EXAMINATION: XR Portable CXR, 1 View INDICATION: Trauma, fell down steps COMPARISON: CT chest, abdomen and pelvis with contrast 09/27/2024. FINDINGS: There is a moderate to large size retrocardiac hiatal hernia that isbetter seen on the comparison CT chest exam. threat monitoring analyst leadsoverlie the chest and included upper abdomen. The cardiomediastinalsilhouette is within normal limits. threat monitoring analyst leads overlie theupper abdomen. Pulmonary vascularity is [...] CDT) 09/27/2024 10:2 2 PM CDT Narrative [facility] - 09/28/2024 5:52 AM CDT [facility] [address] Test Date: 2024-09-27 Pat Name: JEREMIAH GORDON Department: 41 Room: [place] [address] Gender: Female Radiotelephone Technical Operator: [id number] : 1970 Requested By: NYLA GREER Order Number: [id number] Reading : Jaz Hinton Measurements Intervals [place] Rate: 77 P: 53 RI: 171 QRS: -20 QRSD: 110 T: 22 QT: 418 QTc: 475 Interpretive Statements SINUS RHYTHM POSSIBLE LEFT ATRIAL ENLARGEMENT [-0.1mV P WAVE IN V1/V2] Compared to ECG 09/01/2018 20:34:51 Intraventricular conduction delay no longer present Procedure Note Jaz Hinton MD - 09/28/2024 [facility] [address] Test Date: 2024-09-27 Pat Name: JEREMIAH GORDON Department: 41 Room: [place] [address] Gender: Female Radiotelephone Technical Operator: [id number] : 1970 Requested By: NYLA GREER Order Number: [id number] Reading DMITRI Hinton Measurements Intervals [place] Rate: 77 P: 53 RI: 171 QRS: -20 QRSD: 110 T: 22 QT: 418 QTc: 475 Interpretive Statements SINUS RHYTHM POSSIBLE LEFT ATRIAL ENLARGEMENT [-0.1mV P WAVE IN V1/V2] Compared to ECG 09/01/2018 20:34:51 Intraventricular conduction delay no longer present us Nyla Greer MD ECG ORDERABLES Final Result [facility] ([facility] RAD * CT CHEST+ABD+PEL W CON [...] 10:20 PM Narrative 09/27/2024 10:[address] PM [address] [address] INDICATION: Trauma, pain, altered mental status COMPARISON: [...] Procedure Note Trey Montero MD - 09/27/[address] [address] INDICATION: Trauma, pain, altered mental status COMPARISON: [...] By: Trey Montero MD, 09/27/2024 10:20 PM Nyla Greer MD CT Final Result * CT CERV SPINE WO CON (09/27/2024 10:14 PM CDT) Anatomical Region Laterality Modality Spine Computed Tomogra phy 09/27/2024 10:3 7 PM CDT Impressions 09/27/2024 10:40 PM CDT IMPRESSION: No CT evidence of acute cervical fracture or subluxation. Referred By: Interpreted By: Trey Montero MD, 09/27/2024 10:37 PM Narrative 09/27/2024 10:40 PM CDT [place] [address] INDICATION: Trauma COMPARISON: None TECHNIQUE: Nonenhanced CT [...] Procedure Note Trey Montero MD - 09/27/2024 [place] [address] INDICATION: Trauma COMPARISON: None TECHNIQUE: Nonenhanced CT [...] COMPREHENSIVE METABOLIC PANEL (09/27/2024 9:48 PM CDT) Pathologist [facility] GLUCOSE 97 70 - 99 MG/DL 09/27/2024 10:59 PM CDT [facility] BUN 7 7 - 18 MG/DL 09/27/2024 10:59 PM CDT [facility] CREATININE S/P/B 0.58 0.55 - 1.02 MG/DL 09/27/2024 10:59 PM CDT [facility] SODIUM S/P/B 136 136 - 145 MMOL/L 09/27/2024 10:59 PM CDT [facility] POTASSIUM S/P/B 3.7 3.5 - 5.1 MMOL/L 09/27/2024 10:59 PM CDT [facility] CHLORIDE S/P/B 107 97 - 115 MMOL/L 09/27/2024 10:59 PM CDT [facility] CO2 22.5 21 - 32 MMOL/L 09/27/2024 10:59 PM CDT [facility] CALCIUM S/P/B 8.6 8.5 - 10.1 MG/DL 09/27/2024 10:59 PM CDT [facility] BILIRUBIN TOTAL S/P/B 0.4 0.2 - 1.2 MG/DL 09/27/2024 10:59 PM CDT [facility] Comment: THIS ASSAY IS NOT RECOMMENDED FOR PATIENTS UNDERGOING TREATMENT WITH ELTROMBOPAG DUE TO THE POTENTIAL FOR FALSELY ELEVATED RESULTS. TOTAL PROTEIN S/P/B 6.5 6.4 - 8.2 G/DL 09/27/2024 10:59 PM CDT [facility] ALBUMIN S/P/B 3.4 3.4 - 5.0 G/DL 09/27/2024 10:59 PM CDT [facility] AST 22 15 - 37 U/L 09/27/2024 10:59 PM CDT [facility] ALT 22 14 - 55 U/L 09/27/2024 10:59 PM CDT [facility] ALKALINE PHOSPHATASE S/P/B 70 50 - 136 U/L 09/27/2024 10:59 PM CDT [facility] ANION GAP 6.5 2 - 10 MMOL/L 09/27/2024 10:59 PM CDT [facility] BUN CREATININE RATIO 12.0 6 - 26 09/27/2024 10:59 PM CDT [facility] A/G RATIO 1.1 1.0 - 2.0 RATIO 09/27/2024 10:59 PM CDT [facility] GFR ESTIMATE >90 >90 ML/MIN/1.7 3 M2 09/27/2024 10:59 PM CDT [facility] Comment: NOTE: eGFR is not calculated for patients <18 years of age or gender unknown. This is an estimated GFR calculation using the new CKD EPI creatinine equation without race and so does not require a correction factor for race. This estimated GFR should not be used for calculating drug doses. 09/27/2024 9:48 PM CDT us Nyla Greer MD LABORATORY Final Result [facility] [address] [place] [address], * (ABNORMAL) CBC W/DIFF AUTOMATED (09/27/2024 9:48 PM CDT) [facility] WBC 9.28 4.5 - 11.0 x10'3/uL 09/27/2024 10:04 PM CDT [facility] RBC 4.32 4.20 - 5.40 x10'6/uL 09/27/2024 10:04 PM CDT [facility] HGB 13.9 12.0 - 16.0 G/DL 09/27/2024 10:04 PM CDT [facility] HCT 42.0 38.0 - 48.0 % 09/27/2024 10:04 PM CDT [facility] MCV 97.2 81.0 - 99.0 FL 09/27/2024 10:04 PM CDT [facility] MCH 32.2(H) 27.0 - 31.0 PG 09/27/2024 10:04 PM CDT [facility] MCHC 33.1 32.0 - 36.0 G/DL 09/27/2024 10:04 PM CDT [facility] RDW 14.4 11.5 - 14.5 % 09/27/2024 10:04 PM CDT [facility] PLT 269 130 - 400 x10'3/uL 09/27/2024 10:04 PM CDT [facility] MPV 9.1(L) 9.3 - 12.2 FL 09/27/2024 10:04 PM CDT [facility] DIFFERENTIAL TYPE AUTOMATED DIFFERENTIAL 09/27/2024 10:04 PM CDT [facility] NEUTROPHILS % 61.9 % 09/27/2024 10:04 PM CDT [facility] LYMPHOCYTES % 28.6 % 09/27/2024 10:04 PM CDT [facility] MONOCYTES % 6.7 % 09/27/2024 10:04 PM CDT [facility] EOSINOPHILS 2.0 % 09/27/2024 10:04 PM CDT [facility] BASOPHILS 0.3 % 09/27/2024 10:04 PM CDT [facility] IMMATURE GRANS % 0.5 % 09/28/19 10:04 PM CDT [facility] ABS. NEUTROPHILS 5.74 1.80 - 7.70 x10'3/uL 09/27/2024 10:04 PM CDT [facility] ABS. LYMPHOCYTES 2.65 1.00 - 4.80 x10'3/uL 09/27/2024 10:04 PM CDT [facility] ABS. MONOCYTES 0.62 0.24 - 0.86 x10'3/uL 09/27/2024 10:04 PM CDT [facility] ABS. EOSINOPHILS 0.19 0.04 - 0.36 x10'3/uL 09/27/2024 10:04 PM CDT [facility] ABS. BASOPHILS 0.03 0.01 - 0.08 x10'3/uL 09/27/2024 10:04 PM CDT [facility] ABS. IMMATURE GRANULOCYTES 0.05 0.00 - 0.49 x10'3/uL 09/27/2024 10:04 PM CDT [facility] 09/27/2024 9:48 PM CDT us Nyla Greer MD LABORATORY Final Result [facility] [address] [place] [address], * (ABNORMAL) ETHANOL (09/27/2024 9:48 PM CDT) ALCOHOL S/P/B 0.305(HH) <0.003 G/DL 09/27/2024 10:59 PM CDT [facility] Comment: Critical Result(s) Called at: 22:58:01 on 09/27/2024 by: MARQUIS ROSENBERG to and read back by:DEENA HARRIS 09/27/2024 9:48 PM CDT us Nyla Greer MD LABORATORY Final Result [facility] [address] [place] [address], from Last 3 Months Insurance MEDICAID U[employer] Care Teams Thread Roller Relationship Specialty Start Date End Date Inez New [place] [address] [place] [address] PCP - General PHYSICIAN TICKET MARKER 05/26/21
--- OUTSIDE RECORDS SUMMARY | 2024-10-29 12:40 | XMS_ITS | Encounter Summary ---
Author Organization [facility] Care Team Providers Care Fountain Pen Nibs Inspector Name Role Phone Inez New Primary Care Provider [phone] Candido Guerin MD Unavailable [phone] Anthony Diez MD Unavailable [phone] Encounter Details Date Type Department Care Team (Latest Contact Info) Description 09/26/2015 Orders Only [facility] CLINCONV ProviderVishal MD [address] [place], [place] [id number] Social History Tobacco Use Types Packs/Day Years Used Date Smoking Tobacco: Never Assessed Comments Unknown Sex and Gender Information Value Date Recorded Sex Assigned at Not on file Legal Sex 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
--- OUTSIDE RECORDS SUMMARY | 2024-10-29 12:40 | XMS_ITS | Clinical Summary ---
Author Organization [facility] [address] [facility] Address [address] [place] [address] Care Team Providers Care Cylinder Press Feeder Name Role Phone Inez New Primary Care Provider [phone] Candido Guerin MD Unavailable [phone] Anthony Diez MD Unavailable [phone] Allergies No known active allergies Medications magnesium [...] 90 capsule 1 06/11/20 24 Active fluticasone furoate-vilantero L (Breo Ellipta) 200-25 [...] DAILY. 90 tablet 1 09/13/19 25 Active lisinopriL (PRINIVIL,ZESTRIL ) 20 mg tablet TAKE 1 TABLET BY MOUTH EVERY DAY 90 tablet 10/11/19 25 Active ferrous sulfate (FeroSuL) 325 mg (65 mg of elemental iron) tablet TAKE 1 TABLET BY MOUTH DAILY WITH BREAKFAST 90 tablet 1 10/16/19 25 Active rosuvastatin (CRESTOR) 20 mg tabletIndications :Hyperlipidemia, unspecified hyperlipidemia type TAKE 1 TABLET BY MOUTH DAILY 90 tablet 1 10/16/19 25 Active rosuvastatin (CRESTOR) 20 mg tabletIndications :Hyperlipidemia, unspecified hyperlipidemia type Take 1 tablet (20 mg total) by mouth daily 08/13/19 25 2024 Discontinued lisinopriL (PRINIVIL,ZESTRIL ) 20 mg tablet Take 1 tablet (20 mg total) by mouth daily 90 tablet 08/15/19 25 2024 Discontinued Active Problems Problem Noted Date Diagnosed Date Dizziness 08/26/2024 Assessment & Plan (08/26/2024 4:47 PM DRAFTING LAYOUT WORKER): This is a significant, separately identifiable problem [...] 08/26/2024 Assessment & Plan (08/26/2024 4:46 PM DRAFTING LAYOUT WORKER): Encouraged healthy lifestyle, good nutrition and exercise. Encouraged Calcium and Vitamin D and weight bearing exercise for bone health. Reviewed immunizations Reviewed age appropirate screenings. Hypertension associated with diabetes 08/15/2024 Assessment & Plan (08/26/2024 4:38 PM DRAFTING LAYOUT WORKER): Blood pressure still isn't perfectly controlled. Continue with the lisinopril 20. She has not been taking the propranolol so will switch to Bystolic 5 for a q.d. dosing and see how she does. Call in a week with readings. BMI 40.0-44.9, adult 06/11/2024 Assessment & Plan (08/15/2024 10:04 AM DRAFTING LAYOUT WORKER): Discussed the patient's BMI. The BMI is above average. BMI management plan is completed. BMI Follow-up includes: nutrition counseling, exercise counseling and education provided. Assessment & Plan (08/01/2024 11:21 AM DRAFTING LAYOUT WORKER): Discussed the patient's BMI. The BMI is above average. BMI management plan is completed. BMI Follow-up includes: nutrition counseling, exercise counseling and education provided. Assessment & Plan (06/11/2024 12:16 PM DRAFTING LAYOUT WORKER): Discussed the patient's BMI. The BMI is above average. BMI management plan is completed. BMI Follow-up includes: nutrition counseling, exercise counseling and education provided. Elevated TSH 03/17/2024 Assessment & Plan (03/18/2024 8:08 PM CDT): Check labs Abnormal thyroid screen (blood) 03/17/2024 Type 2 diabetes mellitus wit hout complication, without long-term current use of insulin 03/17/2024 Assessment & Plan (08/26/2024 4:37 PM DRAFTING LAYOUT WORKER): Stressed importance of continued A1c control to minimize the ocean transportation intermediary effects of diabetes. Bring accuchecks to office when instructed to do so. Check A1c about every 3-6 months. Take medication as prescribed. Get annual eye exam. Encouraged GLENDY/Statin if able to tolerate. Encouraged weight control and encouraged diabetic diet and exercise. Continue with metformin 500 el A1c is tightly controlled at 5.8 Assessment & Plan (08/13/2024 1:18 PM DRAFTING LAYOUT WORKER): Stressed importance of continued A1c control to minimize the usp effects of diabetes. Bring accuchecks to office when instructed to do so. Check A1c about every 3-6 months. Take medication as prescribed. Get annual eye exam. Encouraged GLENDY/Statin if able to tolerate. Encouraged weight control and encouraged diabetic diet and exercise. A1c is nicely controlled at 5.9. Continue metformin 500 mg Assessment & Plan (06/11/2024 12:15 PM DRAFTING LAYOUT WORKER): Stressed importance of continued A1c control to minimize the usp effects of diabetes. Bring accuchecks to office [...] Discussed with patient at length diabetes, pathogenesis, ocean transportation intermediary sequela, end organ damage, diet/exercise/weight loss, and [...] feet on a regular basis to avoid usp problems. Offered referral to multimedia educational specialist. Start metformin 500 mg 1 tablet daily [...] referral Assessment & Plan (09/07/2023 10:34 PM DRAFTING LAYOUT WORKER): Ears are clear. Suspect eustachian tube dysfunction. Recommend Flonase, mucinex and antihistamine. If symptoms persist, may need ENT referral. Morbid obesity 07/22/2022 Assessment & Plan (08/26/2024 4:37 PM DRAFTING LAYOUT WORKER): Discussed the patient's BMI. The BMI is above average. BMI management plan is completed. BMI Follow-up includes: nutrition counseling, exercise counseling and education provided. Assessment & Plan (08/01/2024 11:22 AM DRAFTING LAYOUT WORKER): Discussed the patient's BMI. The BMI is above average. BMI management plan is completed. BMI Follow-up includes: nutrition counseling, exercise counseling and education provided. Assessment & Plan (06/11/2024 12:15 PM DRAFTING LAYOUT WORKER): Discussed the patient's BMI. The BMI is above average. BMI management plan is completed. BMI Follow-up includes: nutrition counseling, exercise counseling and education provided. Assessment & Plan (03/18/2024 8:06 PM CDT): Discussed the patient's BMI. The BMI is above average. BMI management plan is completed. BMI Follow-up includes: nutrition counseling, exercise counseling and education provided. Assessment & Plan (09/07/2023 10:31 PM DRAFTING LAYOUT WORKER): Discussed the patient's BMI. The BMI is above average. BMI management plan is completed. BMI Follow-up includes: nutrition counseling, exercise counseling and education provided. Patient has an obesity-related condition (not limited to: hypertension, obstructive sleep apnea, osteoarthritis, hyperlipidemia, diabetes, etc.). Therefore, morbid obesity may be documented for patients with a BMI between 35.00-39.99. Assessment & Plan (05/21/2023 3:46 PM DRAFTING LAYOUT WORKER): Discussed the patient's BMI. The BMI is above average. BMI management plan is completed. BMI Follow-up includes: nutrition counseling, exercise counseling and education provided. Patient has an obesity-related condition (not limited to: hypertension, obstructive sleep apnea, osteoarthritis, hyperlipidemia, diabetes, etc.). Therefore, morbid obesity may be documented for patients with a BMI between 35.00-39.99. Assessment & Plan (07/22/2022 2:01 PM DRAFTING LAYOUT WORKER): Discussed the patient's BMI. The BMI is above average. BMI management plan is completed. BMI Follow-up includes: nutrition counseling, exercise counseling and education provided. Patient has an obesity-related condition (not limited to: hypertension, obstructive sleep apnea, osteoarthritis, hyperlipidemia, diabetes, etc.). Therefore, morbid obesity may be documented for patients with a BMI between 35.00-39.99. Symptomatic anemia 05/28/2022 Assessment & Plan (09/07/2023 10:29 PM DRAFTING LAYOUT WORKER): Known anemia. Has had transfusion. Continue to [...] Guajardo Assessment & Plan (06/14/2020 5:55 PM DRAFTING LAYOUT WORKER): Refer back to Ortho. Offered PT. She [...] 09/11/2019 Assessment & Plan (06/11/2024 12:15 PM DRAFTING LAYOUT WORKER): Mammogram order provided Assessment & Plan (08/23/2021 9:43 PM DRAFTING LAYOUT WORKER): Mammogram order provided Assessment & Plan (09/26/2020 8:30 PM CDT): Mammogram order provided Assessment & Plan (09/11/2019 9:21 AM CDT): Mammogram order provided Sciatica of right side 06/17/2019 Assessment & Plan (06/17/2019 6:14 PM DRAFTING LAYOUT WORKER): Voltaren gel Exercise/Start PT Followup if sxs worsen or don't improved. Vertigo 02/28/2019 Assessment & Plan (03/18/2024 8:06 PM CDT): Uses meclizine p.r.n. with good results Assessment & Plan (09/26/2020 8:29 PM CDT): antivert prn Assessment & Plan (03/15/2020 11:09 AM CDT): Persitent vertigo. 02/2020 CT head was essentially negative. She has finally agreed to vestibular therapy. Will still change neurology referral from [place] to [place] as patient able to arranage transportation easier. [...] Assessment & Plan (03/04/2019 11:00 PM CDT): Silvia zhao. Discussed PT but she would like to monitor at this point. Call if sxs worsen. Type 2 diabetes mellitus with hyperlipidemia 09/2018 Assessment & Plan (08/26/2024 4:36 PM DRAFTING LAYOUT WORKER): Encouraged patient to follow low fat/low chol diet like the Mediterranean diet. Increase good fats in the diet. Increase exercise. Monitor labs as needed. Continue Crestor Assessment & Plan (08/13/2024 1:17 PM DRAFTING LAYOUT WORKER): Encouraged patient to follow low fat/low chol diet like the Mediterranean diet. Increase good fats in the diet. Increase exercise. Monitor labs as needed. Continue Crestor Assessment & Plan (06/11/2024 11:51 AM DRAFTING LAYOUT WORKER): Stressed importance of continued A1c control to minimize the ocean transportation intermediary effects of diabetes. Bring accuchecks to office [...] of continued A1c control to minimize the usp effects of diabetes. Bring accuchecks to office [...] Crestor Assessment & Plan (09/07/2023 10:30 PM DRAFTING LAYOUT WORKER): Encouraged patient to follow low fat/low chol diet like the Mediterranean diet. Increase good fats in the diet. Increase exercise. Monitor labs as needed. Continue with Crestor Assessment & Plan (05/21/2023 3:44 PM DRAFTING LAYOUT WORKER): Encouraged patient to follow low fat/low chol diet like the Mediterranean diet. Increase good fats in the diet. Increase exercise. Monitor labs as needed. Continue Crestor Assessment & Plan (07/22/2022 1:49 PM DRAFTING LAYOUT WORKER): Encouraged patient to follow low fat/low chol diet like the Mediterranean diet. Increase good fats in the diet. Increase exercise. Monitor labs as needed. Continue Crestor Assessment & Plan (08/23/2021 9:42 PM DRAFTING LAYOUT WORKER): Encouraged patient to follow fat/low chol diet [...] 12/04/2018 Assessment & Plan (06/11/2024 12:15 PM DRAFTING LAYOUT WORKER): Encouraged smoking cessation. Discussed 3 minutes. Reviewed options for assistance with cessation. Reviewed ocean transportation intermediary sequela associated with smoking. Pt declines assistance at this time but may contact the office at anytime for further help as they desire. Assessment & Plan (03/18/2024 8:05 PM CDT): Encouraged smoking cessation. Discussed 3 minutes. Reviewed options for assistance with cessation. Reviewed ocean transportation intermediary sequela associated with smoking. Pt declines assistance at this time but may contact the office at anytime for further help as they desire. Declines low-dose CT at this point Assessment & Plan (09/07/2023 10:30 PM DRAFTING LAYOUT WORKER): Encouraged smoking cessation. Discussed 3 minutes. Reviewed options for assistance with cessation. Reviewed usp sequela associated with smoking. Pt declines assistance at this time but may contact the office at anytime for further help as they desire. Assessment & Plan (07/22/2022 1:47 PM DRAFTING LAYOUT WORKER): Encouraged smoking cessation. Discussed 3 minutes. Reviewed options for assistance with cessation. Reviewed ocean transportation intermediary sequela associated with smoking. Pt declines assistance at this time but may contact the office at anytime for further help as they desire. Assessment & Plan (08/23/2021 9:42 PM DRAFTING LAYOUT WORKER): Encouraged smoking cessation. Discussed 3 minutes. Reviewed options for assistance with cessation. Reviewed ocean transportation intermediary sequela associated with smoking. Pt declines assistance at this time but may contact the office at anytime for further help as they desire. Assessment & Plan (04/08/2021 2:56 PM CDT): Encouraged smoking cessation. Discussed 3 minutes. Reviewed options for assistance with cessation. Reviewed usp sequela associated with smoking. Pt declines assistance at this time but may contact the office at anytime for further help as they desire. Assessment & Plan (01/18/2021 11:39 PM CDT): Encouraged smoking cessation. Discussed 3 minutes. Reviewed options for assistance with cessation. Reviewed usp sequela associated with smoking. Pt declines assistance at this time but may contact the office at anytime for further help as they desire. Assessment & Plan (09/26/2020 8:30 PM CDT): Encouraged smoking cessation. Discussed 3 minutes. Reviewed options for assistance with cessation. Reviewed usp sequela associated with smoking. Pt declines assistance at this time but may contact the office at anytime for further help as they desire. Assessment & Plan (06/14/2020 5:55 PM DRAFTING LAYOUT WORKER): Encouraged smoking cessation. Discussed 3 minutes. Reviewed options for assistance with cessation. Reviewed usp sequela associated with smoking. Pt declines assistance at this time but may contact the office at anytime for further help as they desire. Assessment & Plan (03/15/2020 11:10 AM CDT): Encouraged smoking cessation. Discussed 3 minutes. Reviewed options for assistance with cessation. Reviewed ocean transportation intermediary sequela associated with smoking. Pt declines assistance [...] Reviewed options for assistance with cessation. Reviewed ocean transportation intermediary sequela associated with smoking. Pt declines assistance at this time but may contact the office at anytime for further help as they desire. Assessment & Plan (06/17/2019 6:16 PM DRAFTING LAYOUT WORKER): Encouraged smoking cessation. Discussed 3 minutes. Reviewed options for assistance with cessation. Reviewed usp sequela associated with smoking. Pt declines assistance at this time but may contact the office at anytime for further help as they desire. Assessment & Plan (01/30/2019 1:03 PM CDT): Encouraged smoking cessation. Discussed approx 3 minutes. Gastroesophageal reflux disease without esophagi tis 12/04/2018 Assessment & Plan (06/11/2024 12:15 PM DRAFTING LAYOUT WORKER): Continue PPI Assessment & Plan (03/18/2024 8:05 PM CDT): Patient has been following closely with Dr. Guerin GI. She transferred and saw Dr. Nath and had an EGD done. States at this point her symptoms are pretty stable so will just continue to monitor continuing the Bentyl as needed and continue PPI p.r.n. Assessment & Plan (05/21/2023 3:44 PM DRAFTING LAYOUT WORKER): Continue PPI p.r.n.. Continue per GI Assessment & Plan (07/22/2022 1:47 PM DRAFTING LAYOUT WORKER): Continue per Dr. Guerin. She is currentl on omeprazole sucralfate. Will await his recommendations Assessment & Plan (08/23/2021 9:42 PM DRAFTING LAYOUT WORKER): Continue PPI. She is unsure if the Dexilant will continue to be covered by her insurance so she will contact us with the letter she has at home with her options. Assessment & Plan (04/08/2021 2:55 PM CDT): Increased reflux symptoms. She is currently on Dexilant. Encouraged to continue with the same regimen. Will refer her to GI Dr. Zamora at [place] she is due for colonoscopy and may [...] 12/04/2018 Assessment & Plan (06/11/2024 12:15 PM DRAFTING LAYOUT WORKER): Supplement Assessment & Plan (03/18/2024 8:06 PM CDT): Supplement Assessment & Plan (09/07/2023 10:30 PM DRAFTING LAYOUT WORKER): Supplement Assessment & Plan (05/21/2023 3:44 PM DRAFTING LAYOUT WORKER): Supplement Assessment & Plan (07/22/2022 1:47 PM DRAFTING LAYOUT WORKER): Supplement Assessment & Plan (09/26/2020 8:14 PM CDT): supplement Assessment & Plan (09/11/2019 9:18 AM CDT): supplement Assessment & Plan (01/30/2019 1:02 PM CDT): supplement COPD (chronic obstructive pulmonary disease) 09/2018 Assessment & Plan (08/26/2024 4:37 PM DRAFTING LAYOUT WORKER): COPD symptoms have been stable. Continue Breo and albuterol p.r.n. Assessment & Plan (08/13/2024 1:18 PM DRAFTING LAYOUT WORKER): Continue with albuterol and Breo as breathing is stable Assessment & Plan (06/11/2024 12:15 PM DRAFTING LAYOUT WORKER): Encouraged complete smoking cessation. Continue Breo and albuterol as needed Assessment & Plan (03/18/2024 8:06 PM CDT): Encouraged complete smoking cessation. Continue albuterol nebs and Breo as needed. Assessment & Plan (09/07/2023 10:30 PM DRAFTING LAYOUT WORKER): Patient with COPD. Continue with albuterol and Breo. Assessment & Plan (05/21/2023 3:44 PM DRAFTING LAYOUT WORKER): Continue Symbicort and albuterol p.r.n. continue Flonase Assessment & Plan (07/22/2022 1:47 PM DRAFTING LAYOUT WORKER): Stressed smoking cessation. Continue Symbicort albuterol inhaler nebulizer p.r.n. Assessment & Plan (07/27/2021 7:15 AM DRAFTING LAYOUT WORKER): Continues Symbicort/prn albuterol Still requires Neb Albuterol [...] basis as instructed. New prescription sent to [place] pharmacy. [id number] completed today Assessment & Plan (09/26/2020 8:14 PM CDT): Continue Symbicort and Albuterol prn Assessment & Plan (03/15/2020 11:10 AM CDT): Continue current regimen. Stop smoking Assessment & Plan (09/11/2019 9:18 AM CDT): STOP smoking. Continue with current regimen inhalers Albuterol/Symbicort Assessment & Plan (01/30/2019 12:54 PM CDT): Continue with Symbicort SHERRY (obstructive sleep apnea) 12/02/2018 Assessment & Plan (08/26/2024 4:36 PM DRAFTING LAYOUT WORKER): Patient has been diagnosed with SHERRY. Awaiting titration study for treatment plan. Continue per Dr. Manuel Assessment & Plan (06/11/2024 11:43 AM DRAFTING LAYOUT WORKER): Patient has established with Dr. Manuel. She had her sleep study test that did confirm sleep apnea. Awaiting the titration study Assessment & Plan (03/18/2024 8:03 PM CDT): Patient was diagnosed with sleep apnea at [facility] with Dr. Joseph. She would not wear the mask so sent the machine back. Has been untreated for many years. Continues to snore and have daytime sleepiness. Strongly encouraged re- evaluation. Willing to see Dr. Manuel at [facility]. Referral placed Assessment & Plan (09/07/2023 10:30 PM DRAFTING LAYOUT WORKER): Continue with CPAP Assessment & Plan (07/22/2022 1:36 PM DRAFTING LAYOUT WORKER): Continue CPAP Assessment & Plan (04/08/2021 2:56 [...] 12/02/2018 Assessment & Plan (08/13/2024 1:17 PM DRAFTING LAYOUT WORKER): Continue to follow with [facility] in [place] Dr. Etienne's office. She stopped her clonazepam [...] acutely. Assessment & Plan (06/11/2024 11:43 AM DRAFTING LAYOUT WORKER): Continue per psychiatrist. She continues to take out her medications and they are updated on her chart Assessment & Plan (03/18/2024 8:04 PM CDT): Continue following with her psychiatrist for management of her mental health concerns. Assessment & Plan (09/07/2023 10:30 PM DRAFTING LAYOUT WORKER): Continue per Psychiatry. Current medications include Klonopin Ingrezza Lexapro Vraylar 6 mg Lamictal and lithium Assessment & Plan (05/21/2023 3:45 PM DRAFTING LAYOUT WORKER): Continue per psychiatrist Assessment & Plan (07/22/2022 1:45 PM DRAFTING LAYOUT WORKER): Continue per psychiatrist. Patient states she is on clonazepam, latuda, Hydroxyzine, Cymbalta and Lexapro Assessment & Plan (08/23/2021 9:42 PM DRAFTING LAYOUT WORKER): Per psychiatrist Assessment & Plan (04/08/2021 2:58 PM CDT): Continue per Psychiatry Assessment & Plan (06/14/2020 5:56 PM DRAFTING LAYOUT WORKER): Unsure of exact diagnosis. Medication/treatment plan is [...] 08/26/2024 Assessment & Plan (08/13/2024 1:19 PM DRAFTING LAYOUT WORKER): Advised patient it is difficult to know if she has true hypertension versus anxiety/panic. Recommend doing home readings and calling us in a couple of weeks with those readings. If she can not do them at home she can always come in but I know transportation is sometimes difficult. Need for influenza vaccination 06/11/2024 08/26/2024 Assessment & Plan (06/11/2024 12:16 PM DRAFTING LAYOUT WORKER): Flu vaccine updated in the office today Annual physical exam 06/11/2024 025 Assessment & Plan (06/11/2024 12:16 PM DRAFTING LAYOUT WORKER): Encouraged healthy lifestyle, good nutrition and exercise. [...] 03/17/2024 Assessment & Plan (09/07/2023 10:31 PM DRAFTING LAYOUT WORKER): Encouraged healthy lifestyle, good nutrition and exercise. Encouraged Calcium and Vitamin D and weight bearing exercise for bone health. Reviewed immunizations. Reviewed age appropirate screenings. Medicare Wellness Documentation is completed within the chart BMI 38.0-38.9,adult 05/21/2023 09/07/19 24 Assessment & Plan (05/21/2023 3:46 PM DRAFTING LAYOUT WORKER): Discussed the patient's BMI. The BMI is above average. BMI management plan is completed. BMI Follow-up includes: nutrition counseling, exercise counseling and education provided. BMI 39.0-39.9,adult 07/22/2022 05/04/20 23 Assessment & Plan (07/22/2022 1:48 PM DRAFTING LAYOUT WORKER): Discussed the patient's BMI. The BMI is above average. BMI management plan is completed. BMI Follow-up includes: nutrition counseling, exercise counseling and education provided. Need for vaccination 07/22/2022 024 Assessment & Plan (05/21/2023 3:46 PM DRAFTING LAYOUT WORKER): Flu vaccine updated in the office Assessment & Plan (07/22/2022 1:48 PM DRAFTING LAYOUT WORKER): Flu vaccine at the office today Encounter for screening mamm ogram for malignant neoplasm of breast 07/22/2022 09/07/2023 Assessment & Plan (07/22/2022 1:48 PM DRAFTING LAYOUT WORKER): Mammogram order provided Bloody diarrhea 04/08/2021 09/07/2023 [...] 09/07/2023 Assessment & Plan (07/22/2022 1:48 PM DRAFTING LAYOUT WORKER): Encouraged healthy lifestyle, good nutrition and exercise. [...] 2016. Prefers to see a provider at [facility]. She is also having burning in the [...] 01/14/20212022 Assessment & Plan (08/23/2021 9:43 PM DRAFTING LAYOUT WORKER): Obesity is unchanged. Discussed the patient's BMI. [...] 07/22/19 Assessment & Plan (07/27/2021 7:21 AM DRAFTING LAYOUT WORKER): Obesity is unchanged. Discussed the patient's BMI. [...] onset of sxs. Check COVID test thru [facility] collection site in [place]. Treat sxs with Tylenol, Cough/cold medication otc [...] water often. If needed, use a hand shake cutter that contains at least 60% alcohol. Clean and disinfect frequently touched surfaces such as tables, doorknobs, countertops, etc daily. Avoid touching your eyes, nose, and mouth when possible. BMI 37.0-37.9, adult 09/26/2020 Assessment & Plan (09/26/2020 12:19 PM CDT): [...] 04/08/2021 Assessment & Plan (07/22/2020 11:47 AM DRAFTING LAYOUT WORKER): Declines covid 19 testing at this time. Will start on ceftin 500mg bid x 7 days. She was advised to report to office if having otorrhea or worsening of symptoms. Need for immunization against influenza 06/14/2020 02/17/2021 Assessment & Plan (06/14/2020 5:57 PM DRAFTING LAYOUT WORKER): Updated in office today BMI 37.0-37.9, adult 06/10/2020 024 Assessment & Plan (09/07/2023 10:31 PM DRAFTING LAYOUT WORKER): Discussed the patient's BMI. The BMI is above average. BMI management plan is completed. BMI Follow-up includes: nutrition counseling, exercise counseling and education provided. Assessment & Plan (06/10/2020 1:35 PM DRAFTING LAYOUT WORKER): Obesity is unchanged. Discussed the patient's BMI. The BMI is above average. BMI management plan is completed. BMI Follow-up includes: nutrition counseling, exercise counseling and education provided.Obesity is unchanged. Discussed the patient's BMI. Positive depression screening 06/10/2020 08/26/2024 Assessment & Plan (07/22/2020 11:47 AM DRAFTING LAYOUT WORKER): Continue medication same Assessment & Plan (06/14/2020 5:56 PM DRAFTING LAYOUT WORKER): Pt denies any suicidal or homicidal thoughts. [...] 03/17/2024 Assessment & Plan (09/07/2023 10:30 PM DRAFTING LAYOUT WORKER): Probably multifactorial. Check labs and followup to re-evaluate Assessment & Plan (09/11/2019 9:21 AM CDT): Probably multifactorial. Check labs and followup to re-evaluate Hyperglycemia 09/11/2019 03/06/2024 Assessment & Plan (09/07/2023 10:30 PM DRAFTING LAYOUT WORKER): Pre-diabetes/hyperglycemia is a precursor to Dm. Stressed [...] Encounters Date Type Department Care Team Description 10/15/2024 Telephone [facility] Medical Group Family Medicine [address] [address] Sandy Ramirez MA Successful Phone Call (MED ADHERENCE) 10/03/2024 Orders Only [facility] Health Information Management [address] [place] [address] Scanning, Provider 10/02/2024 Orders Only [facility] [address] [place] [address] Inez New [place] Enlarged liver (Primary Dx); Bile duct abnormality 09/28/2024 Telephone [facility] Medicine [address] [place] [address] Inez New [place] 09/27/2024 Orders Only [facility] Health Information Management [address] [place] [address] Inez New [place] 09/24/2024 Documentation [facility] Cardiology [address] [place] [address] Tessie Rice MA 09/21/2024 Telephone [facility] Accountable Care Organization [address] [place] [address] Antonella Costa Chart Review ([facility] Med Adherence ) 09/11/2024 Orders Only [facility] Medical [facility] Internal Medicine at [place] [address] [place] [address] Inez New [place] Need for RSV vaccination (Primary Dx) 09/05/2024 Orders Only [facility] [address] [place] [address] Inez New [place] Positive HARRIETT (antinuclear antibody) (Primary Dx) 09/05/2024 Orders Only [facility] [address] [place] [address] Inez New [place] Positive HARRIETT (antinuclear antibody) (Primary Dx) 09/04/2024 Results Follow-Up [facility] [address] [place] [address] Inez New PA 08/28/2024 Orders Only [facility] Medicine [facility] [place] [address] Inez New [place] Dizziness (Primary Dx); Persistent headaches 08/28/2024 Orders Only [address] [place] [address] Inez New [place] Facial rash (Primary Dx) 08/24/2024 Orders Only [facility] Health Information Management [address] [place] [address] Inez New [place] 08/24/2024 Telephone [facility] Sleep Lab [address] [place] [address] Jeffy Manuel MD Cpap titration results / cpap order 08/23/2024 7:47 PM DRAFTING LAYOUT WORKER - 08/23/2024 11:59 PM DRAFTING LAYOUT WORKER Hospital Encounter [facility] Sleep Lab [address] [place] [address] SHERRY (obstructive sleep apnea) Discharge Disposition: Discharge to home or self care 08/23/[address] [place] [address] Inez New [place] 08/23/[address] [place] [address] Inez New [place] Medication Request 08/23/[address] [place] [address] Inez New [place] 08/20/[address] [place] [address] Inez New PA 08/15/2024 10:00 AM DRAFTING LAYOUT WORKER Office Visit [address] [place] [address] Inez New [place] Annual physical exam (Primary Dx); Dizziness; Elevated blood pressure reading; Hypertension associated with diabetes (HCC); Type 2 diabetes mellitus without complication, without long-term current use of insulin (HCC); Chronic obstructive pulmonary disease, unspecified COPD type (HCC); Type 2 diabetes mellitus with hyperlipidemia (HCC); SHERRY (obstructive sleep apnea); Morbid obesity (HCC); BMI 40.0-44.9, adult (HCC); Essential (primary) hypertension 08/01/2024 11:00 AM DRAFTING LAYOUT WORKER Telemedicine [facility] Medical Group Family Medicine [address] [place] [address] Inez New [place] Type 2 diabetes mellitus without complication, without long-term current use of insulin (HCC) (Primary Dx); Elevated blood pressure reading; Chronic obstructive pulmonary disease, unspecified COPD type (HCC); Type 2 diabetes mellitus with hyperlipidemia (HCC); Mental health problem; BMI 40.0-44.9, adult (HCC); Morbid obesity (HCC); Hyperlipidemia, unspecified hyperlipidemia type from Last 3 Months Immunizations Immunization Administration [...] on file Legal Sex Female 4:54 AM DRAFTING LAYOUT WORKER Gender Identity Not on file Sexual Orientation Not on file Occupation Industry Job Start Date Job End Date Disabled Not on file Not on file Not on file Obstetrics History Last Filed Vital Signs Vital Sign Reading Time Taken Comments Blood Pressure 164/86 08/15/2024 10:04 AM DRAFTING LAYOUT WORKER Pulse 85 08/15/2024 10:04 AM DRAFTING LAYOUT WORKER Temperature 36.3 C (97.4 F) 08/15/2024 10:04 AM DRAFTING LAYOUT WORKER Respiratory Rate 18 05/18/2024 9:37 AM DRAFTING LAYOUT WORKER Oxygen Saturation 97% 08/15/2024 10:04 AM DRAFTING LAYOUT WORKER Inhaled Oxygen Concentration - - Weight 105 kg (231 lb 6.4 oz) 08/15/2024 10:04 A M DRAFTING LAYOUT WORKER Height 154.9 cm (5' 1 ) 08/15/2024 10:04 AM DRAFTING LAYOUT WORKER Body Mass Index 43.72 08/15/2024 10:04 AM DRAFTING LAYOUT WORKER Plan of Treatment Health Maintenance Due [...] Priority Date/Time Associated Diagnosis Comments SCAN - RADIOLOGY/IMAGING 10/03/2024 SCAN - RADIOLOGY/IMAGING 09/27/2024 HARRIETT TITER & PATTERN Routine 08/28/2024 1 :17 PM DRAFTING LAYOUT WORKER HARRIETT QUALITATIVE WITH REFLEX TO HARRIETT QUANTITATIVE Routine 08/28/2024 1:17 PM DRAFTING LAYOUT WORKER Facial rash SCAN - PATHOLOGY 08/24/2024 GI - RESULT 08/24/2024 PSG (COMPLEX) Routine 08/23/2024 7:47 PM DRAFTING LAYOUT WORKER SHERRY (obstructive sleep apnea) ECG 12-LEAD Routine 08/15/2024 10:46 AM DRAFTING LAYOUT WORKER Elevated blood pressure reading SCREENING MAMMOGRAM BILATERAL W ALBERTO Schedule Routine, Read Routine (OP Routine) 08/08/2024 2:15 PM DRAFTING LAYOUT WORKER Breast cancer screening by mammogram ALBUMIN CREATININE RATIO, URINE Routine 06/01/2024 7:12 AM DRAFTING LAYOUT WORKER Type 2 diabetes mellitus with hyperlipidemia (HCC) COMPREHENSIVE METABOLIC PANEL Routine 06/01/2024 7:11 AM DRAFTING LAYOUT WORKER Type 2 diabetes mellitus with hyperlipidemia (HCC) HEMOGLOBIN A1C Routine 06/01/2024 7:11 AM DRAFTING LAYOUT WORKER Type 2 diabetes mellitus with hyperlipidemia (HCC) LIPID PANEL Routine 06/01/2024 7:11 AM DRAFTING LAYOUT WORKER Hyperlipidemia, unspecified hyperlipidemia type HM COLONOSCOPY Routine 05/26/2021 THINPREP BUILDER'S LABOURER PAP (IMAGE GUIDED) LIQUID-BASED PREP Routine 08/03/2017 12:16 PM DRAFTING LAYOUT WORKER from Last 3 Months or Most Recently Relevant to Health Maintenance Results * SCAN - RADIOLOGY/IMAGING (10/03/2024) Anatomical Region Laterality Modality Other Provider Scanning Final Result * SCAN - RADIOLOGY/IMAGING (09/27/2024) Anatomical Region Laterality Modality Other Inez VELASCO Final Resu lt * (ABNORMAL) HARRIETT ab ql w/rflx to HARRIETT qn (08/28/2024 1:17 PM DRAFTING LAYOUT WORKER) HARRIETT, qual POSITIVE( A) NEGATIVE [facility] [place] Comment: HARRIETT IFA is a first line screen for detecting the presence of up to approximately 150 autoantibodies in various autoimmune diseases. A positive HARRIETT IFA result is suggestive of autoimmune disease and reflexes to titer and pattern. Further laboratory testing may be considered if clinically indicated. For additional information, please refer to http://education.DietBetter/faq/JBV442 (This link is being provided for informational/ educational purposes only.) Blood 08/28/2024 1:17 PM DRAFTING LAYOUT WORKER 08/28/2024 1:18 PM DRAFTING LAYOUT WORKER Narrative [facility] - 08/30/2024 1:13 PM DRAFTING LAYOUT WORKER FASTING:YES FASTING: YES Result [facility] Inez VELASCO LAB BLOOD ORDERABLES Final Result Performing Organization Address [facility] Co de Phone Number [facility] [address] [place] [address] * (ABNORMAL) Antinuclear Antibodies Titer and Pattern (08/28/2024 1:17 PM DRAFTING LAYOUT WORKER) HARRIETT, quant 1:80(H) titer [facility] Comment: A low level HARRIETT titer may be present in pre-clinical autoimmune diseases and normal individuals. Reference Range <1:40 Negative 1:40-1:80 Low Antibody Level >1:80 Elevated Antibody Level HARRIETT, pattern Nuclear, Homogeneou s(A) [facility] Comment: Homogeneous pattern is associated with systemic lupus erythematosus (SLE), drug-induced lupus and juvenile idiopathic arthritis. AC-1: Homogeneous International Consensus on HARRIETT Patterns (https://doi.org/10.1515/pitr-5215-3655) 08/28/2024 1:1 7 PM DRAFTING LAYOUT WORKER 08/28/2024 1:18 PM DRAFTING LAYOUT WORKER Narrative [facility] - 08/30/2024 1:13 PM DRAFTING LAYOUT WORKER FASTING:YES FASTING: YES Result [facility] Inez VELASCO LAB BLOOD ORDERABLES Final Result Performing Organization Address [facility] Co de Phone Number [facility] [address] [place] [address] * GI - RESULT (08/24/2024) Anatomical Region Laterality Modality Other Inez VELASCO Final Resu lt * SCAN - PATHOLOGY (08/24/2024) Provider Scanning Final Result * PSG-Sleep Provider Use Only (08/23/2024 7:47 PM DRAFTING LAYOUT WORKER) us Jeffy Manuel MD SLEEP CENTER ORDERABLES F inal Result [facility]EP [facility] [address] [place] [address] * ECG 12 lead (08/15/2024 10:46 AM DRAFTING LAYOUT WORKER) us Inez VELASCO ECG ORDERABLES Final Resu lt * Screening Mammogram Bilateral W Alberto (08/08/2024 2:15 PM DRAFTING LAYOUT WORKER) Anatomical Region Laterality Modality Breast Bilateral Mammography Impressions 08/08/2024 2:15 PM DRAFTING LAYOUT WORKER 1.No mammographic evidence of malignancy 2.Routine screening recommended for 1 year BI-RADS Category 1 Negative us Inez VELASCO IMG MAMMO PROCEDURES Final Result * Albumin Creatinine Ratio, Urine (06/01/2024 7:12 AM DRAFTING LAYOUT WORKER) Creatinine, ur 42 20 - 275 mg/dL [...] a diagnostic category. Urine 06/01/2024 7:12 AM DRAFTING LAYOUT WORKER 06/01/2024 7:13 AM DRAFTING LAYOUT WORKER us Inez VELASCO LAB URINE ORDERABLES Final Result [facility] [address] [address] * (ABNORMAL) Hemoglobin A1c (06/01/2024 7:11 AM DRAFTING LAYOUT WORKER) Pathologist [facility] Hgb A1C 5.9(H) <5.7 % of total Hgb Estella [facility] Jackson Comment: For someone without known diabetes, [...] diabetes for children. Blood 06/01/2024 7:11 AM DRAFTING LAYOUT WORKER 06/01/2024 7:11 AM DRAFTING LAYOUT WORKER Narrative [facility] - 06/01/2024 9:56 PM DRAFTING LAYOUT WORKER FASTING:YES FASTING: YES Inez VELASCO LAB BLOOD ORDERABLES Final Result [email or web address] [address] [place] [address] * (ABNORMAL) Lipid panel (06/01/2024 7:11 AM DRAFTING LAYOUT WORKER) [facility] Cholesterol 142 <200 mg/dL [facility]erson Jackson HDL 47(L) > OR = 50 mg/dL [email or web address] Jackson Triglycerides 124 <150 mg/dL Estella [facility] Jackson LDL 74 mg/dL (calc) [facility] Comment: Reference range: <100 Desirable range <100 mg/dL for primary prevention; <70 mg/dL for patients with CHD or diabetic patients with > or = 2 CHD risk factors. LDL-C is now calculated using the Crystal calculation, which is a validated novel method providing better accuracy than the Friedewald equation in the estimation of LDL-C. Arley COSTA et al. FRANKY. 2013;310(19): 4811-6123 (http://education.Milk.Skyline Financial/faq/BWI845) Chol/HDL ratio 3.0 <5.0 (calc) Estella DeentyEmerson Jackson Non-HDL, (LDL+VLDL) 95 <130 mg/dL (calc) [facility] watt Manuel Comment: For patients with diabetes plus 1 major ASCVD risk factor, treating to a non-HDL-C goal of <100 mg/dL (LDL-C of <70 mg/dL) is considered a therapeutic option. Blood 06/01/2024 7:11 AM DRAFTING LAYOUT WORKER 06/01/2024 7:11 AM DRAFTING LAYOUT WORKER Narrative [facility] - 06/01/2024 9:56 PM DRAFTING LAYOUT WORKER FASTING:YES FASTING: YES Inez VELASCO LAB BLOOD ORDERABLES Final Result ESTELLA [email or web address] Valley HospitalMelissa [address] [place] [address] * Comprehensive metabolic panel (06/01/2024 7:11 AM DRAFTING LAYOUT WORKER) Pathologist [facility] Glucose 98 65 - 99 mg/dL Estella [facility] watt Manuel Comment: Fasting reference interval BUN 11 7 - 25 mg/dL [facility] shukri Manuel Creatinine 0.75 0.50 - 1.03 mg/dL [facility] DeentyEmerson watt Manuel eGFR 95 > OR = 60 mL/min/1.7 3m2 [facility] Manuel BUN/creat ratio SEE NOTE: (calc) Estella [facility] watt Manuel Comment: Not Reported: BUN and Creatinine are within reference range. Sodium 136 135 - 146 mmol/L [facility] Manuel Potassium, pl 4.3 3.5 - 5.3 mmol/L [facility] Manuel Chloride 102 98 - 110 mmol/L [facility]Al[facility] Manuel CO2 26 20 - 32 mmol/L [facility] Manuel Calcium 9.5 8.6 - 10.4 mg/dL [facility] w[facility] Manuel Protein, sr 6.8 6.1 - 8.1 g/dL [facility] Manuel Albumin 4.6 3.6 - 5.1 g/dL [facility] Manuel GLOBULIN 2.2 1.9 - 3.7 g/dL (calc) Estella DeentyEmerson watt Manuel Alb/glob ratio 2.1 1.0 - 2.5 (calc) [facility] Manuel Bilirubin, total 0.6 0.2 - 1.2 mg/dL [facility] shukri Jackson Alk phos 69 37 - 153 U/L [facility] AST 24 10 - 35 U/L [facility] shukri Jackson ALT (SGPT) 21 6 - 29 U/L [facility] shukri Jackson Blood 06/01/2024 7:11 AM DRAFTING LAYOUT WORKER 06/01/2024 7:11 AM DRAFTING LAYOUT WORKER Narrative [facility] - 06/01/2024 9:56 PM DRAFTING LAYOUT WORKER FASTING:YES FASTING: YES Inez VELASCO LAB BLOOD ORDERABLES Final Result [facility] [address] [place] [address] * (ABNORMAL) COLONOSCOPY (05/26/2021) Historical Provider HEALTH MAINTENANCE Edited Result - Final * ThinPrep Gynecologic Pap Test (Image-guided), Liquid-based Preparation (08/03/2017 12:16 PM DRAFTING LAYOUT WORKER) CLINICAL INFORMATION [facility] HISTORICAL RESULTS Comment:Information not prov ided LMP: 07/19 [facility] HISTORICAL RESULTS PREV. PAP: [facility] HISTORICAL RESULTS Comment:MANY YEARS AGO PREV. BX: [facility] HISTORICAL RESULTS Comment:INFORMATION NOT PROV IDED SOURCE: [facility] HISTORICAL RESULTS Comment:Cervix, Endocervix STATEMENT OF ADEQUACY: [facility] HISTORICAL RESULTS Comment: Satisfactory for evaluation. Endocervical/transformation zone component present. INTERPRETATION/RESU LT: [facility] HISTORICAL RESULTS Comment:Negative for intraep ithelial lesion or malignancy. COMMENT: [facility] HISTORICAL RESULTS Comment: This Pap test has been evaluated with computer assisted technology. LABOR SERVICE REPRESENTATIVE: [facility] HISTORICAL RESULTS Comment: YQ, CT(ASCP) CT screening location: [place] [address] [address] [place] [address] 08/03/2017 12:1 6 PM DRAFTING LAYOUT WORKER 08/09/2017 8:55 PM DRAFTING LAYOUT WORKER Narrative [facility] HISTORICAL RESULTS - 08/09/2017 8:41 PM DRAFTING LAYOUT WORKER 0 PERFORMING LAB: , [facility] [address] [facility] [address] Mahi Mcmahon MD us Historical Provider LAB PATHOLOGY ORDERABLES Final Result [facility] HISTORICAL RESULTS from Last 3 Months or Most Recently Relevant to Health Maintenance Insurance [facility] [place] [address] [place] [address] [facility] MEDICARE ADVANTAGE [facility] MEDICARE ADVANTAGE Advance Directives For more information, please contact: [phone] * Full Code (Latest Code Status on File) Date Activated Date Inactivated Comments 05/29/2022 12:59 PM 05/30/2022 2:26 PM * Full Code Date Activated Date Inactivated Comments 05/28/2022 7:20 PM 05/29/2022 12:59 PM Care Teams Cylinder Press Feeder Relationship Specialty Start Date End Date [place]ez New [place] [address] [address] PCP - General 09/14/17 Candido Guerin MD [facility] [facility] [address] [place] [address] Consulting Physician Gastroenterology 05/04/23 Anthony Diez MD [address] [place] [address] Consulting Physician Rheumatology 09/18/24
--- OUTSIDE RECORDS SUMMARY | 2024-10-29 12:40 | XMS_ITS | Referral Summary ---
Author Organization [facility] [address] [place] [address] Care Team Providers Care Axle And Frame Mechanic Name Role Phone Inez New Primary Care Provider + [phone] Candido Guerin MD Unavailable [phone] Anthony Diez MD Unavailable [phone] Encounters Date Type Department Care Team Description 10/15/2024 Telephone [facility] [address] [facility] [address] [place] [phone] Sandy Ramirez MA Successful Phone Call (MED ADHERENCE) 10/03/2024 Orders Only [facility] Health Information Management [address] [place] [id number] Scanning, Provider 10/02/2024 Orders Only [facility] [address] [place] [phone] Inez New PA Enlarged liver (Primary Dx); Bile duct abnormality 09/28/2024 Telephone [facility] [address] [place] [phone] Inez New PA 09/27/2024 Orders Only [facility] Health Information Management [address] [place] [id number] Inez New PA 09/24/2024 Documentation [facility] Medical [facility] Cardiology [address] [place] [address] Tessie Rice MA 09/21/2024 Telephone [facility] Accountable Care Organization [address] [place] [id number] Antonella Costa Chart Review ([facility] Med Adherence ) 09/11/2024 Orders Only [facility] Medical [facility] Internal Medicine at [place] [address] [place] [address] Inez New PA Need for RSV vaccination (Primary Dx) 09/05/2024 Orders Only [facility] Family Medicine [address] [place] [address] Inez New PA Positive HARRIETT (antinuclear antibody) (Primary Dx) 09/05/2024 Orders Only [facility] Family Medicine [address] [place] [address] Inez New PA Positive HARRIETT (antinuclear antibody) (Primary Dx) 09/04/2024 Results Follow-Up [facility] Medicine [address] [place] [address] Inez New PA 08/28/2024 Orders Only [facility] Medicine [address] [place] [address] Inez New PA Dizziness (Primary Dx); Persistent headaches 08/28/2024 Orders Only [facility] [address] [place] [address] Inez New PA Facial rash (Primary Dx) 08/24/2024 Orders Only [facility] Health Information Management [address] [place] [address] Inez New PA 08/24/2024 Telephone [facility] [address] [place] [address] Jeffy Manuel MD Cpap titration results / cpap order 08/23/[address] [place] [phone] Inez New PA 08/23/[address] [place] [phone] Inez New PA Medication Request 08/23/[address] [place] [phone] Inez New PA 08/23/2024 7:47 PM SOFTWARE SALES EXECUTIVE - 08/23/2024 11:59 PM SOFTWARE SALES EXECUTIVE Hospital Encounter [facility] [address] [place] [address] SHERRY (obstructive sleep apnea) Discharge Disposition: Discharge to home or self care 08/20/[address] [place] [phone] Inez New PA 08/15/2024 10:00 AM SOFTWARE SALES EXECUTIVE Office Visit [address] [place] [phone] Inez New PA Annual physical exam [...] (HCC); Essential (primary) hypertension 08/01/2024 11:00 AM SOFTWARE SALES EXECUTIVE Telemedicine [address] [place] [phone] Inez New PA Type 2 diabetes mellitus without complication, without long-term current use of insulin (HCC) (Primary Dx); Elevated blood pressure reading; Chronic obstructive pulmonary disease, unspecified COPD type (HCC); Type 2 diabetes mellitus with hyperlipidemia (HCC); Mental health problem; BMI 40.0-44.9, adult (HCC); Morbid obesity (HCC); Hyperlipidemia, unspecified hyperlipidemia type from Last 3 Months Allergies No known [...] complication, without long-term current use of insulin ([facility]) Use daily for monitoring of diabetes. 1 [...] 08/26/2024 Assessment & Plan (08/26/2024 4:47 PM SOFTWARE SALES EXECUTIVE): This is a significant, separately identifiable problem [...] 08/26/2024 Assessment & Plan (08/26/2024 4:46 PM SOFTWARE SALES EXECUTIVE): Encouraged healthy lifestyle, good nutrition and exercise. Encouraged Calcium and Vitamin D and weight bearing exercise for bone health. Reviewed immunizations Reviewed age appropirate screenings. Hypertension associated with diabetes 08/15/2024 Assessment & Plan (08/26/2024 4:38 PM SOFTWARE SALES EXECUTIVE): Blood pressure still isn't perfectly controlled. Continue with the lisinopril 20. She has not been taking the propranolol so will switch to Bystolic 5 for a q.d. dosing and see how she does. Call in a week with readings. BMI 40.0-44.9, adult 06/11/2024 Assessment & Plan (08/15/2024 10:04 AM SOFTWARE SALES EXECUTIVE): Discussed the patient's BMI. The BMI is above average. BMI management plan is completed. BMI Follow-up includes: nutrition counseling, exercise counseling and education provided. Assessment & Plan (08/01/2024 11:21 AM SOFTWARE SALES EXECUTIVE): Discussed the patient's BMI. The BMI is above average. BMI management plan is completed. BMI Follow-up includes: nutrition counseling, exercise counseling and education provided. Assessment & Plan (06/11/2024 12:16 PM SOFTWARE SALES EXECUTIVE): Discussed the patient's BMI. The BMI is above average. BMI management plan is completed. BMI Follow-up includes: nutrition counseling, exercise counseling and education provided. Elevated TSH 03/17/2024 Assessment & Plan (03/18/2024 8:08 PM CDT): Check labs Abnormal thyroid screen (blood) 03/17/2024 Type 2 diabetes mellitus wit hout complication, without long-term current use of insulin 03/17/2024 Assessment & Plan (08/26/2024 4:37 PM SOFTWARE SALES EXECUTIVE): Stressed importance of continued A1c control to minimize the termite control servicer effects of diabetes. Bring accuchecks to office when instructed to do so. Check A1c about every 3-6 months. Take medication as prescribed. Get annual eye exam. Encouraged GLENDY/Statin if able to tolerate. Encouraged weight control and encouraged diabetic diet and exercise. Continue with metformin 500 el A1c is tightly controlled at 5.8 Assessment & Plan (08/13/2024 1:18 PM SOFTWARE SALES EXECUTIVE): Stressed importance of continued A1c control to minimize the termite control servicer effects of diabetes. Bring accuchecks to office when instructed to do so. Check A1c about every 3-6 months. Take medication as prescribed. Get annual eye exam. Encouraged GLENDY/Statin if able to tolerate. Encouraged weight control and encouraged diabetic diet and exercise. A1c is nicely controlled at 5.9. Continue metformin 500 mg Assessment & Plan (06/11/2024 12:15 PM SOFTWARE SALES EXECUTIVE): Stressed importance of continued A1c control to minimize the termite control servicer effects of diabetes. Bring accuchecks to office [...] with patient at length diabetes, pathogenesis, termite control servicer sequela, end organ damage, diet/exercise/weight loss, and [...] feet on a regular basis to avoid skilled nursing problems. Offered referral to combustion engineer. Start metformin 500 mg 1 tablet [...] referral Assessment & Plan (09/07/2023 10:34 PM SOFTWARE SALES EXECUTIVE): Ears are clear. Suspect eustachian tube dysfunction. Recommend Flonase, mucinex and antihistamine. If symptoms persist, may need ENT referral. Morbid obesity 07/22/2022 Assessment & Plan (08/26/2024 4:37 PM SOFTWARE SALES EXECUTIVE): Discussed the patient's BMI. The BMI is above average. BMI management plan is completed. BMI Follow-up includes: nutrition counseling, exercise counseling and education provided. Assessment & Plan (08/01/2024 11:22 AM SOFTWARE SALES EXECUTIVE): Discussed the patient's BMI. The BMI is above average. BMI management plan is completed. BMI Follow-up includes: nutrition counseling, exercise counseling and education provided. Assessment & Plan (06/11/2024 12:15 PM SOFTWARE SALES EXECUTIVE): Discussed the patient's BMI. The BMI is above average. BMI management plan is completed. BMI Follow-up includes: nutrition counseling, exercise counseling and education provided. Assessment & Plan (03/18/2024 8:06 PM CDT): Discussed the patient's BMI. The BMI is above average. BMI management plan is completed. BMI Follow-up includes: nutrition counseling, exercise counseling and education provided. Assessment & Plan (09/07/2023 10:31 PM SOFTWARE SALES EXECUTIVE): Discussed the patient's BMI. The BMI is above average. BMI management plan is completed. BMI Follow-up includes: nutrition counseling, exercise counseling and education provided. Patient has an obesity-related condition (not limited to: hypertension, obstructive sleep apnea, osteoarthritis, hyperlipidemia, diabetes, etc.). Therefore, morbid obesity may be documented for patients with a BMI between 35.00-39.99. Assessment & Plan (05/21/2023 3:46 PM SOFTWARE SALES EXECUTIVE): Discussed the patient's BMI. The BMI is above average. BMI management plan is completed. BMI Follow-up includes: nutrition counseling, exercise counseling and education provided. Patient has an obesity-related condition (not limited to: hypertension, obstructive sleep apnea, osteoarthritis, hyperlipidemia, diabetes, etc.). Therefore, morbid obesity may be documented for patients with a BMI between 35.00-39.99. Assessment & Plan (07/22/2022 2:01 PM SOFTWARE SALES EXECUTIVE): Discussed the patient's BMI. The BMI is above average. BMI management plan is completed. BMI Follow-up includes: nutrition counseling, exercise counseling and education provided. Patient has an obesity-related condition (not limited to: hypertension, obstructive sleep apnea, osteoarthritis, hyperlipidemia, diabetes, etc.). Therefore, morbid obesity may be documented for patients with a BMI between 35.00-39.99. Symptomatic anemia 05/28/2022 Assessment & Plan (09/07/2023 10:29 PM SOFTWARE SALES EXECUTIVE): Known anemia. Has had transfusion. Continue to [...] Guajardo Assessment & Plan (06/14/2020 5:55 PM SOFTWARE SALES EXECUTIVE): Refer back to Ortho. Offered PT. She [...] 09/11/2019 Assessment & Plan (06/11/2024 12:15 PM SOFTWARE SALES EXECUTIVE): Mammogram order provided Assessment & Plan (08/23/2021 9:43 PM SOFTWARE SALES EXECUTIVE): Mammogram order provided Assessment & Plan (09/26/2020 8:30 PM CDT): Mammogram order provided Assessment & Plan (09/11/2019 9:21 AM CDT): Mammogram order provided Sciatica of right side 06/17/2019 Assessment & Plan (06/17/2019 6:14 PM SOFTWARE SALES EXECUTIVE): Voltaren gel Exercise/Start PT Followup if sxs worsen or don't improved. Vertigo 02/28/2019 Assessment & Plan (03/18/2024 8:06 PM CDT): Uses meclizine p.r.n. with good results Assessment & Plan (09/26/2020 8:29 PM CDT): antivert prn Assessment & Plan (03/15/2020 11:09 AM CDT): Persitent vertigo. 02/2020 CT head was essentially negative. She has finally agreed to vestibular therapy. Will still change neurology referral from [place] to [place] as patient able to arranage transportation easier. [...] 09/2018 Assessment & Plan (08/26/2024 4:36 PM SOFTWARE SALES EXECUTIVE): Encouraged patient to follow low fat/low chol diet like the Mediterranean diet. Increase good fats in the diet. Increase exercise. Monitor labs as needed. Continue Crestor Assessment & Plan (08/13/2024 1:17 PM SOFTWARE SALES EXECUTIVE): Encouraged patient to follow low fat/low chol diet like the Mediterranean diet. Increase good fats in the diet. Increase exercise. Monitor labs as needed. Continue Crestor Assessment & Plan (06/11/2024 11:51 AM SOFTWARE SALES EXECUTIVE): Stressed importance of continued A1c control to minimize the termite control servicer effects of diabetes. Bring accuchecks to office [...] 5.9. Tolerating the metformin without difficulty Continue [facility] 20 Assessment & Plan (03/18/2024 8:04 PM [...] Crestor Assessment & Plan (09/07/2023 10:30 PM SOFTWARE SALES EXECUTIVE): Encouraged patient to follow low fat/low chol diet like the Mediterranean diet. Increase good fats in the diet. Increase exercise. Monitor labs as needed. Continue with Crestor Assessment & Plan (05/21/2023 3:44 PM SOFTWARE SALES EXECUTIVE): Encouraged patient to follow low fat/low chol diet like the Mediterranean diet. Increase good fats in the diet. Increase exercise. Monitor labs as needed. Continue Crestor Assessment & Plan (07/22/2022 1:49 PM SOFTWARE SALES EXECUTIVE): Encouraged patient to follow low fat/low chol diet like the Mediterranean diet. Increase good fats in the diet. Increase exercise. Monitor labs as needed. Continue Crestor Assessment & Plan (08/23/2021 9:42 PM SOFTWARE SALES EXECUTIVE): Encouraged patient to follow fat/low chol diet [...] 12/04/2018 Assessment & Plan (06/11/2024 12:15 PM SOFTWARE SALES EXECUTIVE): Encouraged smoking cessation. Discussed 3 minutes. Reviewed options for assistance with cessation. Reviewed termite control servicer sequela associated with smoking. Pt declines assistance [...] point Assessment & Plan (09/07/2023 10:30 PM SOFTWARE SALES EXECUTIVE): Encouraged smoking cessation. Discussed 3 minutes. Reviewed options for assistance with cessation. Reviewed skilled nursing sequela associated with smoking. Pt declines assistance at this time but may contact the office at anytime for further help as they desire. Assessment & Plan (07/22/2022 1:47 PM SOFTWARE SALES EXECUTIVE): Encouraged smoking cessation. Discussed 3 minutes. Reviewed options for assistance with cessation. Reviewed skilled nursing sequela associated with smoking. Pt declines assistance at this time but may contact the office at anytime for further help as they desire. Assessment & Plan (08/23/2021 9:42 PM SOFTWARE SALES EXECUTIVE): Encouraged smoking cessation. Discussed 3 minutes. Reviewed options for assistance with cessation. Reviewed termite control servicer sequela associated with smoking. Pt declines assistance [...] options for assistance with cessation. Reviewed termite control servicer sequela associated with smoking. Pt declines assistance [...] desire. Assessment & Plan (06/14/2020 5:55 PM SOFTWARE SALES EXECUTIVE): Encouraged smoking cessation. Discussed 3 minutes. Reviewed options for assistance with cessation. Reviewed termite control servicer sequela associated with smoking. Pt declines assistance at this time but may contact the office at anytime for further help as they desire. Assessment & Plan (03/15/2020 11:10 AM CDT): Encouraged smoking cessation. Discussed 3 minutes. Reviewed options for assistance with cessation. Reviewed termite control servicer sequela associated with smoking. Pt declines assistance [...] options for assistance with cessation. Reviewed termite control servicer sequela associated with smoking. Pt declines assistance at this time but may contact the office at anytime for further help as they desire. Assessment & Plan (06/17/2019 6:16 PM SOFTWARE SALES EXECUTIVE): Encouraged smoking cessation. Discussed 3 minutes. Reviewed options for assistance with cessation. Reviewed termite control servicer sequela associated with smoking. Pt declines assistance at this time but may contact the office at anytime for further help as they desire. Assessment & Plan (01/30/2019 1:03 PM CDT): Encouraged smoking cessation. Discussed approx 3 minutes. Gastroesophageal reflux disease without esophagi tis 12/04/2018 Assessment & Plan (06/11/2024 12:15 PM SOFTWARE SALES EXECUTIVE): Continue PPI Assessment & Plan (03/18/2024 8:05 PM CDT): Patient has been following closely with Dr. Guerin GI. She transferred and saw Dr. Nath and had an EGD done. States at this point her symptoms are pretty stable so will just continue to monitor continuing the Bentyl as needed and continue PPI p.r.n. Assessment & Plan (05/21/2023 3:44 PM SOFTWARE SALES EXECUTIVE): Continue PPI p.r.n.. Continue per GI Assessment & Plan (07/22/2022 1:47 PM SOFTWARE SALES EXECUTIVE): Continue per Dr. Guerin. She is currentl on omeprazole sucralfate. Will await his recommendations Assessment & Plan (08/23/2021 9:42 PM SOFTWARE SALES EXECUTIVE): Continue PPI. She is unsure if the Dexilant will continue to be covered by her insurance so she will contact us with the letter she has at home with her options. Assessment & Plan (04/08/2021 2:55 PM CDT): Increased reflux symptoms. She is currently on Dexilant. Encouraged to continue with the same regimen. Will refer her to GI Dr. Zamora at [place] she is due for colonoscopy and may [...] 12/04/2018 Assessment & Plan (06/11/2024 12:15 PM SOFTWARE SALES EXECUTIVE): Supplement Assessment & Plan (03/18/2024 8:06 PM CDT): Supplement Assessment & Plan (09/07/2023 10:30 PM SOFTWARE SALES EXECUTIVE): Supplement Assessment & Plan (05/21/2023 3:44 PM SOFTWARE SALES EXECUTIVE): Supplement Assessment & Plan (07/22/2022 1:47 PM SOFTWARE SALES EXECUTIVE): Supplement Assessment & Plan (09/26/2020 8:14 PM CDT): supplement Assessment & Plan (09/11/2019 9:18 AM CDT): supplement Assessment & Plan (01/30/2019 1:02 PM CDT): supplement COPD (chronic obstructive pulmonary disease) 09/2018 Assessment & Plan (08/26/2024 4:37 PM SOFTWARE SALES EXECUTIVE): COPD symptoms have been stable. Continue Breo and albuterol p.r.n. Assessment & Plan (08/13/2024 1:18 PM SOFTWARE SALES EXECUTIVE): Continue with albuterol and Breo as breathing is stable Assessment & Plan (06/11/2024 12:15 PM SOFTWARE SALES EXECUTIVE): Encouraged complete smoking cessation. Continue Breo and albuterol as needed Assessment & Plan (03/18/2024 8:06 PM CDT): Encouraged complete smoking cessation. Continue albuterol nebs and Breo as needed. Assessment & Plan (09/07/2023 10:30 PM SOFTWARE SALES EXECUTIVE): Patient with COPD. Continue with albuterol and Breo. Assessment & Plan (05/21/2023 3:44 PM SOFTWARE SALES EXECUTIVE): Continue Symbicort and albuterol p.r.n. continue Flonase Assessment & Plan (07/22/2022 1:47 PM SOFTWARE SALES EXECUTIVE): Stressed smoking cessation. Continue Symbicort albuterol inhaler nebulizer p.r.n. Assessment & Plan (07/27/2021 7:15 AM SOFTWARE SALES EXECUTIVE): Continues Symbicort/prn albuterol Still requires Neb Albuterol [...] basis as instructed. New prescription sent to [place] pharmacy. [id number] completed today Assessment & Plan (09/26/2020 8:14 PM CDT): Continue Symbicort and Albuterol prn Assessment & Plan (03/15/2020 11:10 AM CDT): Continue current regimen. Stop smoking Assessment & Plan (09/11/2019 9:18 AM CDT): STOP smoking. Continue with current regimen inhalers Albuterol/Symbicort Assessment & Plan (01/30/2019 12:54 PM CDT): Continue with Symbicort SHERRY (obstructive sleep apnea) 12/02/2018 Assessment & Plan (08/26/2024 4:36 PM SOFTWARE SALES EXECUTIVE): Patient has been diagnosed with SHERRY. Awaiting titration study for treatment plan. Continue per Dr. Manuel Assessment & Plan (06/11/2024 11:43 AM SOFTWARE SALES EXECUTIVE): Patient has established with Dr. Manuel. She had her sleep study test that did confirm sleep apnea. Awaiting the titration study Assessment & Plan (03/18/2024 8:03 PM CDT): Patient was diagnosed with sleep apnea at [facility] with Dr. Joseph. She would not wear the mask so sent the machine back. Has been untreated for many years. Continues to snore and have daytime sleepiness. Strongly encouraged re- evaluation. Willing to see Dr. Manuel at [facility]. Referral placed Assessment & Plan (09/07/2023 10:30 PM SOFTWARE SALES EXECUTIVE): Continue with CPAP Assessment & Plan (07/22/2022 1:36 PM SOFTWARE SALES EXECUTIVE): Continue CPAP Assessment & Plan (04/08/2021 2:56 [...] 12/02/2018 Assessment & Plan (08/13/2024 1:17 PM SOFTWARE SALES EXECUTIVE): Continue to follow with Shakira in [place] Dr. Etienne's office. She stopped her clonazepam [...] acutely. Assessment & Plan (06/11/2024 11:43 AM SOFTWARE SALES EXECUTIVE): Continue per psychiatrist. She continues to take out her medications and they are updated on her chart Assessment & Plan (03/18/2024 8:04 PM CDT): Continue following with her psychiatrist for management of her mental health concerns. Assessment & Plan (09/07/2023 10:30 PM SOFTWARE SALES EXECUTIVE): Continue per Psychiatry. Current medications include Klonopin Ingrezza Lexapro Vraylar 6 mg Lamictal and lithium Assessment & Plan (05/21/2023 3:45 PM SOFTWARE SALES EXECUTIVE): Continue per psychiatrist Assessment & Plan (07/22/2022 1:45 PM SOFTWARE SALES EXECUTIVE): Continue per psychiatrist. Patient states she is on clonazepam, latuda, Hydroxyzine, Cymbalta and Lexapro Assessment & Plan (08/23/2021 9:42 PM SOFTWARE SALES EXECUTIVE): Per psychiatrist Assessment & Plan (04/08/2021 2:58 PM CDT): Continue per Psychiatry Assessment & Plan (06/14/2020 5:56 PM SOFTWARE SALES EXECUTIVE): Unsure of exact diagnosis. Medication/treatment plan is [...] 08/26/2024 Assessment & Plan (08/13/2024 1:19 PM SOFTWARE SALES EXECUTIVE): Advised patient it is difficult to know if she has true hypertension versus anxiety/panic. Recommend doing home readings and calling us in a couple of weeks with those readings. If she can not do them at home she can always come in but I know transportation is sometimes difficult. Need for influenza vaccination 06/11/2024 08/26/2024 Assessment & Plan (06/11/2024 12:16 PM SOFTWARE SALES EXECUTIVE): Flu vaccine updated in the office today Annual physical exam 06/11/2024 025 Assessment & Plan (06/11/2024 12:16 PM SOFTWARE SALES EXECUTIVE): Encouraged healthy lifestyle, good nutrition and exercise. [...] 03/17/2024 Assessment & Plan (09/07/2023 10:31 PM SOFTWARE SALES EXECUTIVE): Encouraged healthy lifestyle, good nutrition and exercise. Encouraged Calcium and Vitamin D and weight bearing exercise for bone health. Reviewed immunizations. Reviewed age appropirate screenings. Medicare Wellness Documentation is completed within the chart BMI 38.0-38.9,adult 05/21/2023 09/07/19 24 Assessment & Plan (05/21/2023 3:46 PM SOFTWARE SALES EXECUTIVE): Discussed the patient's BMI. The BMI is above average. BMI management plan is completed. BMI Follow-up includes: nutrition counseling, exercise counseling and education provided. BMI 39.0-39.9,adult 07/22/2022 05/04/20 23 Assessment & Plan (07/22/2022 1:48 PM SOFTWARE SALES EXECUTIVE): Discussed the patient's BMI. The BMI is above average. BMI management plan is completed. BMI Follow-up includes: nutrition counseling, exercise counseling and education provided. Need for vaccination 07/22/2022 024 Assessment & Plan (05/21/2023 3:46 PM SOFTWARE SALES EXECUTIVE): Flu vaccine updated in the office Assessment & Plan (07/22/2022 1:48 PM SOFTWARE SALES EXECUTIVE): Flu vaccine at the office today Encounter for screening mamm ogram for malignant neoplasm of breast 07/22/2022 09/07/2023 Assessment & Plan (07/22/2022 1:48 PM SOFTWARE SALES EXECUTIVE): Mammogram order provided Bloody diarrhea 04/08/2021 09/07/2023 [...] 09/07/2023 Assessment & Plan (07/22/2022 1:48 PM SOFTWARE SALES EXECUTIVE): Encouraged healthy lifestyle, good nutrition and exercise. [...] 2015. Prefers to see a provider at [facility]. She is also having burning in [...] 01/14/20212022 Assessment & Plan (08/23/2021 9:43 PM SOFTWARE SALES EXECUTIVE): Obesity is unchanged. Discussed the patient's BMI. [...] 23 Assessment & Plan (07/27/2021 7:21 AM SOFTWARE SALES EXECUTIVE): Obesity is unchanged. Discussed the patient's BMI. [...] onset of sxs. Check COVID test thru [facility] collection site in [place]. Treat sxs with Tylenol, Cough/cold medication otc [...] water often. If needed, use a hand imaging specialist that contains at least 60% alcohol. Clean [...] 04/08/2021 Assessment & Plan (07/22/2020 11:47 AM SOFTWARE SALES EXECUTIVE): Declines covid 19 testing at this time. Will start on ceftin 500mg bid x 7 days. She was advised to report to office if having otorrhea or worsening of symptoms. Need for immunization against influenza 06/14/2020 02/17/2021 Assessment & Plan (06/14/2020 5:57 PM SOFTWARE SALES EXECUTIVE): Updated in office today BMI 37.0-37.9, adult 06/10/2020 024 Assessment & Plan (09/07/2023 10:31 PM SOFTWARE SALES EXECUTIVE): Discussed the patient's BMI. The BMI is above average. BMI management plan is completed. BMI Follow-up includes: nutrition counseling, exercise counseling and education provided. Assessment & Plan (06/10/2020 1:35 PM SOFTWARE SALES EXECUTIVE): Obesity is unchanged. Discussed the patient's BMI. The BMI is above average. BMI management plan is completed. BMI Follow-up includes: nutrition counseling, exercise counseling and education provided.Obesity is unchanged. Discussed the patient's BMI. Positive depression screening 06/10/2020 08/26/2024 Assessment & Plan (07/22/2020 11:47 AM SOFTWARE SALES EXECUTIVE): Continue medication same Assessment & Plan (06/14/2020 5:56 PM SOFTWARE SALES EXECUTIVE): Pt denies any suicidal or homicidal thoughts. [...] 03/17/2024 Assessment & Plan (09/07/2023 10:30 PM SOFTWARE SALES EXECUTIVE): Probably multifactorial. Check labs and followup to re-evaluate Assessment & Plan (09/11/2019 9:21 AM CDT): Probably multifactorial. Check labs and followup to re-evaluate Hyperglycemia 09/11/2019 03/06/2024 Assessment & Plan (09/07/2023 10:30 PM SOFTWARE SALES EXECUTIVE): Pre-diabetes/hyperglycemia is a precursor to Dm. Stressed [...] on file Legal Sex Female 4:54 AM SOFTWARE SALES EXECUTIVE Gender Identity Not on file Sexual Orientation Not on file Occupation Industry Job Start Date Job End Date Disabled Not on file Not on file Not on file Last Filed Vital Signs Vital Sign Reading Time Taken Comments Blood Pressure 164/86 08/15/2024 10:04 AM SOFTWARE SALES EXECUTIVE Pulse 85 08/15/2024 10:04 AM SOFTWARE SALES EXECUTIVE Temperature 36.3 C (97.4 F) 08/15/2024 10:04 AM SOFTWARE SALES EXECUTIVE Respiratory Rate 18 05/18/2024 9:37 AM SOFTWARE SALES EXECUTIVE Oxygen Saturation 97% 08/15/2024 10:04 AM SOFTWARE SALES EXECUTIVE Inhaled Oxygen Concentration - - Weight 105 kg (231 lb 6.4 oz) 08/15/2024 10:04 A M SOFTWARE SALES EXECUTIVE Height 154.9 cm (5' 1 ) 08/15/2024 10:04 AM SOFTWARE SALES EXECUTIVE Body Mass Index 43.72 08/15/2024 10:04 AM SOFTWARE SALES EXECUTIVE Plan of Treatment Not on file Procedures Procedure Name Priority Date/Time Associated Diagnosis Comments SCAN - RADIOLOGY/IMAGING 10/03/2024 SCAN - RADIOLOGY/IMAGING 09/27/2024 HARRIETT TITER & PATTERN Routine 08/28/2024 1 :17 PM SOFTWARE SALES EXECUTIVE HARRIETT QUALITATIVE WITH REFLEX TO HARRIETT QUANTITATIVE Routine 08/28/2024 1:17 PM SOFTWARE SALES EXECUTIVE Facial rash SCAN - PATHOLOGY 08/24/2024 GI - RESULT 08/24/2024 PSG (COMPLEX) Routine 08/23/2024 7:47 PM SOFTWARE SALES EXECUTIVE SHERRY (obstructive sleep apnea) ECG 12-LEAD Routine 08/15/2024 10:46 AM SOFTWARE SALES EXECUTIVE Elevated blood pressure reading SCREENING MAMMOGRAM BILATERAL W ALBERTO Schedule Routine, Read Routine (OP Routine) 08/08/2024 2:15 PM SOFTWARE SALES EXECUTIVE Breast cancer screening by mammogram ALBUMIN CREATININE RATIO, URINE Routine 06/01/2024 7:12 AM SOFTWARE SALES EXECUTIVE Type 2 diabetes mellitus with hyperlipidemia (HCC) COMPREHENSIVE METABOLIC PANEL Routine 06/01/2024 7:11 AM SOFTWARE SALES EXECUTIVE Type 2 diabetes mellitus with hyperlipidemia (HCC) HEMOGLOBIN A1C Routine 06/01/2024 7:11 AM SOFTWARE SALES EXECUTIVE Type 2 diabetes mellitus with hyperlipidemia (HCC) LIPID PANEL Routine 06/01/2024 7:11 AM SOFTWARE SALES EXECUTIVE Hyperlipidemia, unspecified hyperlipidemia type HM COLONOSCOPY Routine 05/26/2021 THINPREP DIRECTOR OF INFECTION CONTROL PAP (IMAGE GUIDED) LIQUID-BASED PREP Routine 08/03/2017 12:16 PM SOFTWARE SALES EXECUTIVE from Last 3 Months or Most Recently Relevant to Health Maintenance Results * SCAN - RADIOLOGY/IMAGING (10/03/2024) Anatomical Region Laterality Modality Other us Provider Scanning Final Result * SCAN - RADIOLOGY/IMAGING (09/27/2024) Anatomical Region Laterality Modality Other Inez VELASCO Final Resu lt * (ABNORMAL) HARRIETT ab ql w/rflx to HARRIETT qn (08/28/2024 1:17 PM SOFTWARE SALES EXECUTIVE) HARRIETT, qual POSITIVE( A) NEGATIVE [facility] Comment: HARRIETT IFA is a first line screen for detecting the presence of up to approximately 150 autoantibodies in various autoimmune diseases. A positive HARRIETT IFA result is suggestive of autoimmune disease and reflexes to titer and pattern. Further laboratory testing may be considered if clinically indicated. For additional information, please refer to http://education.Echometrix.Duogou/faq/QCI665 (This link is being provided for informational/ educational purposes only.) Blood 08/28/2024 1:17 PM SOFTWARE SALES EXECUTIVE 08/28/2024 1:18 PM SOFTWARE SALES EXECUTIVE Narrative [facility] - 08/30/2024 1:13 PM SOFTWARE SALES EXECUTIVE FASTING:YES FASTING: YES Inez VELASCO LAB BLOOD ORDERABLES Final Result Performing Organization Address City/State/[facility] Co de Phone Number [facility] [address] [place] [address] * (ABNORMAL) Antinuclear Antibodies Titer and Pattern (08/28/2024 1:17 PM SOFTWARE SALES EXECUTIVE) HARRIETT, quant 1:80(H) titer [facility] [...] AC-1: Homogeneous International Consensus on HARRIETT Patterns (https://doi.org/10.1515/ejxf-1714-5029) 08/28/2024 1:17 PM SOFTWARE SALES EXECUTIVE 08/28/2024 1:18 PM SOFTWARE SALES EXECUTIVE Narrative [facility] - 08/30/2024 1:13 PM SOFTWARE SALES EXECUTIVE FASTING:YES FASTING: YES Inez VELASCO LAB BLOOD ORDERABLES Final Result Performing Organization Address [facility] de Phone Number [facility] [address] [place] [address] * GI - RESULT (08/24/2024) Anatomical Region Laterality Modality Other us Inez VELASCO Final Resu lt * SCAN - PATHOLOGY (08/24/2024) us Provider Scanning Final Result * PSG-Sleep Provider Use Only (08/23/2024 7:47 PM SOFTWARE SALES EXECUTIVE) us Jeffy Manuel MD SLEEP CENTER ORDERABLES F inal Result Performing Organization Address [facility] Co de Phone Number [facility] SLEEP MEDICINE [address] [place] [id number] * ECG 12 lead (08/15/2024 10:46 AM SOFTWARE SALES EXECUTIVE) us Inez VELASCO ECG ORDERABLES Final Resu lt * Screening Mammogram Bilateral W Alberto (08/08/2024 2:15 PM SOFTWARE SALES EXECUTIVE) Anatomical Region Laterality Modality Breast Bilateral Mammography Impressions 08/08/2024 2:15 PM SOFTWARE SALES EXECUTIVE 1.No mammographic evidence of malignancy 2.Routine screening recommended for 1 year BI-RADS Category 1 Negative us Inez VELASCO IMG MAMMO PROCEDURES Final Result * Albumin Creatinine Ratio, Urine (06/01/2024 7:12 AM SOFTWARE SALES EXECUTIVE) Creatinine, ur 42 20 - 275 mg/dL [...] a diagnostic category. Urine 06/01/2024 7:12 AM SOFTWARE SALES EXECUTIVE 06/01/2024 7:13 AM SOFTWARE SALES EXECUTIVE us Inez VELASCO LAB URINE ORDERABLES Final Result [facility] [address] [place] [address] * (ABNORMAL) Hemoglobin A1c (06/01/2024 7:11 AM SOFTWARE SALES EXECUTIVE) Hgb A1C 5.9(H) <5.7 % of total Hgb [facility] Comment: For someone without known diabetes, a [...] diabetes for children. Blood 06/01/2024 7:11 AM SOFTWARE SALES EXECUTIVE 06/01/2024 7:11 AM SOFTWARE SALES EXECUTIVE Narrative [facility] - 06/01/2024 9:56 PM SOFTWARE SALES EXECUTIVE FASTING:YES FASTING: YES Inez VELASCO LAB BLOOD ORDERABLES Final Result [facility] [address] [place] [address] * (ABNORMAL) Lipid panel (06/01/2024 7:11 AM SOFTWARE SALES EXECUTIVE) [facility] Cholesterol 142 <200 mg/dL [facility] Manuel HDL 47(L) > OR = 50 mg/dL [facility] shukri Jackson Triglycerides 124 <150 mg/dL [facility] shuk[facility] Jackson LDL 74 mg/dL (calc) [facility] Manuel Comment: Reference range: <100 Desirable range <100 mg/dL for primary prevention; <70 mg/dL for patients with CHD or diabetic patients with > or = 2 CHD risk factors. LDL-C is now calculated using the Arley-Marito calculation, which is a validated novel method providing better accuracy than the Friedewald equation in the estimation of LDL-C. Arley COSTA et al. FRANKY. 2013;310(19): 8108-3495 (http://education.Echometrix.Duogou/faq/LVO161) Chol/HDL ratio 3.0 <5.0 (calc) [facility] Manuel Non-HDL, (LDL+VLDL) 95 <130 mg/dL (calc) [facility] shukri Jackson Comment: For patients with diabetes plus 1 major ASCVD risk factor, treating to a non-HDL-C goal of <100 mg/dL (LDL-C of <70 mg/dL) is considered a therapeutic option. Blood 06/01/2024 7:11 AM SOFTWARE SALES EXECUTIVE 06/01/2024 7:11 AM SOFTWARE SALES EXECUTIVE Narrative [facility] - 06/01/2024 9:56 PM SOFTWARE SALES EXECUTIVE FASTING:YES FASTING: YES Inez VELASCO LAB BLOOD ORDERABLES Final Result [facility] [address] [place] [address] * Comprehensive metabolic panel (06/01/2024 7:11 AM SOFTWARE SALES EXECUTIVE) Pathologist [facility] Glucose 98 65 - 99 mg/dL [facility] [place] shukri Manuel Comment: Fasting reference interval BUN 11 7 - 25 mg/dL [facility] Creatinine 0.75 0.50 - 1.03 mg/dL [facility] eGFR 95 > OR = 60 mL/min/1.7 3m2 [facility] BUN/creat ratio SEE NOTE: 6 - 22 (calc) [facility] [place] shukri Jackson Comment: Not Reported: BUN and Creatinine are within reference range. Sodium 136 135 - 146 mmol/L [facility] Manuel Potassium, pl 4.3 3.5 - 5.3 mmol/L [facility] Chloride 102 98 - 110 mmol/L [facility] CO2 26 20 - 32 mmol/L [facility] Calcium 9.5 8.6 - 10.4 mg/dL [facility] Protein, sr 6.8 6.1 - 8.1 g/dL [facility] Albumin 4.6 3.6 - 5.1 g/dL [facility] GLOBULIN 2.2 1.9 - 3.7 g/dL (calc) [facility] Alb/glob ratio 2.1 1.0 - 2.5 (calc) [facility] Bilirubin, total 0.6 0.2 - 1.2 mg/dL [facility] Alk phos 69 37 - 153 U/L [facility] AST 24 10 - 35 U/L [facility] ALT (SGPT) 21 6 - 29 U/L [facility] Jackson Blood 06/01/2024 7:11 AM SOFTWARE SALES EXECUTIVE 06/01/2024 7:11 AM SOFTWARE SALES EXECUTIVE Narrative [facility] - 06/01/2024 9:56 PM SOFTWARE SALES EXECUTIVE FASTING:YES FASTING: YES Inez VELASCO LAB BLOOD ORDERABLES Final Result Performing Organization Address City/[facility] Co de Phone Number [facility] [place] [address] [place] [address] * (ABNORMAL) COLONOSCOPY (05/26/2021) Historical Provider [facility] Edited Result - Final * ThinPrep Gynecologic Pap Test (Image-guided), Liquid-based Preparation (08/03/2017 12:16 PM SOFTWARE SALES EXECUTIVE) CLINICAL INFORMATION [facility] HISTORICAL RESULTS Comment:Information not prov ided LMP: 07/19 [facility] HISTORICAL RESULTS PREV. PAP: [facility] HISTORICAL RESULTS Comment:MANY YEARS AGO PREV. BX: [facility] HISTORICAL RESULTS Comment:INFORMATION NOT PROV IDED SOURCE: [facility] HISTORICAL RESULTS Comment:Cervix, Endocervix STATEMENT OF ADEQUACY: [facility] HISTORICAL RESULTS Comment: Satisfactory for evaluation. Endocervical/transformation zone component present. INTERPRETATION/RESU LT: [facility] HISTORICAL RESULTS Comment:Negative for intraep ithelial lesion or malignancy. COMMENT: [facility] HISTORICAL RESULTS Comment: This Pap test has been evaluated with computer assisted technology. FRIT MAKER: [facility] HISTORICAL RESULTS Comment: YQ, CT(ASCP) CT screening location: [place] [address] [place] [address] 08/03/2017 12:1 6 PM SOFTWARE SALES EXECUTIVE 08/09/2017 8:55 PM SOFTWARE SALES EXECUTIVE Narrative [facility] HISTORICAL RESULTS - 08/09/2017 8:41 PM SOFTWARE SALES EXECUTIVE 0 PERFORMING LAB: [place] [address] [place] [address] Mahi Mcmahon MD Historical Provider LAB PATHOLOGY ORDERABLES Final Result [facility] HIST[facility] RESULTS from Last 3 Months or Most Recently Relevant to Health Maintenance Insurance IDKS [facility] MEDICARE ADVANTAGE IDKS [facility] MEDICARE ADVANTAGE [facility] MEDICARE ADVANTAGE Advance Directives For more information, please contact: [phone] * Full Code (Latest Code Status on File) Date Activated Date Inactivated Comments 05/29/2022 12:59 PM 05/30/2022 2:26 PM * Full Code Date Activated Date Inactivated Comments 05/28/2022 7:20 PM 05/29/2022 12:59 PM Care Teams Axle And Frame Mechanic Relationship Specialty Start Date End Date Inez New PA [address] [place] [address] PCP - General 09/14/17 Candido Guerin MD [address] [place] [address] Consulting Physician Gastroenterology 05/04/23 Anthony Diez MD [address] [place] [address] Consulting Physician Rheumatology 09/18/24
--- OUTSIDE RECORDS SUMMARY | 2024-10-29 12:40 | XMS_ITS | Encounter Summary ---
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 Gender Identity Not on file Sexual Orientation Not on file Occupation Industry Job Start Date Job End Date Disabled Not on file Not on file Not on file documented as of this encounter Plan of Treatment Not on file documented as of this encounter Procedures Procedure Name Priority Date/Time Associated Diagnosis Comments SCAN - RADIOLOGY/IMAGING 10/03/2024 documented in this encounter Results * SCAN - RADIOLOGY/IMAGING (10/03/2024) Anatomical Region Laterality Modality Other us Provider Scanning Final Result documented in this encounter Visit Diagnoses Not on filedocumented in this encounter Care Teams Asset Protection Lead Relationship Specialty Start Date End Date Inez New PA [address] [place] [address] PCP - General 09/14/17 Candido Guerin MD [address] [place] [address] Consulting Physician Gastroenterology 05/04/23 Anthony Diez MD [address] [place] [address] Consulting Physician Rheumatology 09/18/24 documented as of this encounter
--- OUTSIDE RECORDS SUMMARY | 2024-10-29 12:41 | XMS_ITS | Encounter Summary ---
Author Organization [facility] Healthcare Address [address] [place] [address] Care Team Providers Care Welding Engineer Name Role Phone Inez New Primary Care Provider + [phone] Candido Guerin MD Unavailable [phone] Anthony Diez MD Unavailable [phone] Encounter Details Date Type Department Care Team (Late st Contact Info) Description 09/04/2024 Results Follow-Up 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 Gender Identity Not on file Sexual Orientation Not on file Occupation Industry Job Start Date Job End Date Disabled Not on file Not on file Not on file documented as of this encounter Plan of Treatment Not on file documented as of this encounter Visit Diagnoses Not on filedocumented in this encounter Care Teams Welding Engineer Relationship Specialty Start Date End Date Inez New PA [address] [place] [address] PCP - General 09/14/17 Candido Guerin MD [address] [place] [address] Consulting Physician Gastroenterology 05/04/23 Anthony Diez MD [address] [place] [address] Consulting Physician Rheumatology 09/18/24 documented as of this encounter
--- OUTSIDE RECORDS SUMMARY | 2024-10-29 12:41 | XMS_ITS | Encounter Summary ---
Author Organization [facility] Facility Care Team Providers Care Occupational Therapist Per Diem Name Role Phone Inez New Primary Care Provider [phone] Candido Guerin MD Unavailable [phone] Anthony Diez MD Unavailable [phone] Encounter Details Date Type Department Care Team (Latest Contact Info) Description 10/01/2016 Orders Only [facility] ProviderVishal MD [address] [place], [place] [id number] Social History Tobacco Use Types Packs/Day Years Used Date Smoking Tobacco: Never Assessed Comments Unknown Sex and Gender Information Value Date Recorded Sex Assigned at Not on file 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
--- OUTSIDE RECORDS SUMMARY | 2024-10-29 12:41 | XMS_ITS ---
Author Organization [facility] Address [facility] [address] Care Team Providers Care Starter Mechanic Name Role Phone Rachell New PA-C Primary Care Provider Unav Kacy Hunt Unavailable [phone] Ale Benedict Unavailable [phone] REASON FOR VISIT Therapy Visit Social History Sex Assigned At : Social History Observation Description Sex Assigned At Female Encounters Encounter [facility] Date [facility] [place] [address] [address] 10/15/2024 Ale Ramirez Plan Of Treatment Next Appt Details Provider Name:Ale Ramirez, 11/16/2024 08:00:00 AM, [address] [facility], [address], [address], Provider Name:Kacy brown, 11/19/2024 09:00:00 AM, [address] [facility], [address], [address], Provider Name:Ale Ramirez, 12/20/2024 08:00:00 AM, [address], [address], Progress Notes * NGUYỄN RUCKER:1970 ( 54 yo F)Acc No.[id number]:10/15/2024 Patient: JEREMIAH MERCADO Provider: Sebastian RAMIREZ LCSW :1970 A ge:54 Y S ex:Female Date:10/15/2024 Address:[address] [place] [address] Pcp:Rachell New PA-C Data: * Chief Complaints: * 1 . Therapy Visit. Assessment: Plan: * Treatment: * Billing Information: * Visit Code: * Procedure Codes: * Electronic signature of Roberta Ramirez LCSW on 10/29/2024 at 12:40 PM CDT Sign off status: Pending Signatures: No Ad Hoc Signature Added * Provider: Sebastian RAMIREZ LCSW Date: 0 10/15/2024 Generated for Verna callahan/Katia/Avila on: 10/29/2024 12:40 PM CDT
--- OUTSIDE RECORDS SUMMARY | 2024-10-29 12:41 | XMS_ITS | Encounter Summary ---
Author Organization [facility] Facility Care Team Providers Care Office Machinery Or Equipment Installer Name Role Phone Inez New Primary Care Provider [phone] Candido Guerin MD Unavailable [phone] Anthony Diez MD Unavailable [phone] Encounter Details Date Type Department Care Team (Latest Contact Info) Description 10/07/2017 Orders Only [facility] ProviderVishal MD [address] [place] [address] Social History Tobacco Use Types Packs/Day Years Used Date Smoking Tobacco: Never Assessed Comments Unknown Sex and Gender Information Value Date Recorded Sex Assigned at Not on file 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
--- OUTSIDE RECORDS SUMMARY | 2024-10-29 12:41 | XMS_ITS | Patient Health Record ---
Author Organization [facility] [employer] [facility] Address [address] [facility] [address] [place] [address] Care Team Providers Care Engraver Seals Name Role Phone Rachell New PA-C Primary Care Provider Unav Kacy Hunt Unavailable [phone] Vitaliy Ale Nelson Unavailable [phone] Polina Hernandez Unavailable [phone] Migration, Provider Unavailable Unavailable Allergies No Known Allergies Results Component Value Reference Range Notes DRUG SCREEN, 14 DRUGS (DETEC TIMED), URINE Reviewed date:11/22/2023 12:00:00 AM Interpretation: Performing Lab: Notes/Report: Amphetamine negative Barbiturates negative Benzodiazipine negative Buprenorphine negative Cocaine negative MDMA/Ectasy negative Methadone negative Methamphetamine negative Morphine negative note all negative Oxycodone negative Phenocyclidine negative THC negative UDT Reviewed date:07/31/2024 03:17:21 PM Interpretation: Performing Lab: Notes/Report: THC N 0 - 50 ng/ml Cocaine N 0 - 300 ng/ml Amphetamine N 0 - 1000 ng/ml Buprenorphine (BUP) N 0 - 10 ng/ml Secobarbital (Bar) N 0 - 300 ng/ml Oxazepam (BZO) N 0 - 300 ng/ml 9-hjxsfdhgvy-4,0-tlkclurt-9, 3-diphenylpyrrolidine (EDDP) N 0 - 300 ng/ml Methamphetamine (MET) N 0 - 1000 ng/ml Methylenedioxymethamphetamine (MDMA) N 0 - 500 ng/ml Morphine (MOP 300/HMW0245) N 0 - 300 ng/ml Methadone (MTD) N 0 - 300 ng/ml Phencyclidine (PCP) N 0 - 25 ng/ml Nortriptyline (TCA) N 0 - 1000 ng/ml Oxycodone N 0 - 300 ng/ml x N 0 - 300 ng/ml Reason For Referral No Information Medications Medication SIG (Take, Route, Frequency, Duration) Notes Start Date End Date Status Diclofenac Sodium 1% Transdermal 11/22/2023 Not-Taking Cyclobenzaprine HCl 10 MG Oral 11/22/2023 Not-Taking HYDROcodone-Acetamino phen 5-325 MG Oral 11/22/2023 Not-Taking Ingrezza 80 mg 1 capsule oral daily for 28 days Not-Taking Propranolol HCl 10 MG TAKE 1 TABLET BY MOUTH TWICE A DAY ON EMPTY STOMACH FOR 30 DAYS for 90 Active Naproxen 375 MG Oral 11/22/2023 Not -Taking [place] Carbonate ER 300 mg 1 tablet at bedtime oral daily for 28 days Active Breo Ellipta 200-25 MCG/INH Inhalation 11/22/2023 Active Cholecalciferol 25 MCG (1000 UT) Oral 11/22/2023 Active lamoTRIgine 200 mg 1 tablet oral twice a day for 28 days Active FLUoxetine HCl 40 MG 1 capsule Orally Once a day for 28 days Active lamoTRIgine 200 mg TAKE 1 TABLET BY MOUTH TWICE A DAY for 28 Active clonazePAM 0.5 mg 1 tablet oral twice a day for 28 days 06/02/2024 Not-Taking metFORMIN HCl unkown mg Active Dexilant 60 MG Oral 11/22/2023 Not- Taking Albuterol Sulfate (2.5 MG/3ML) 0.083% Inhalation 11/22/2023 Active Cetirizine HCl 10 MG Oral 11/22/2023 Active Omeprazole 40 MG Oral 11/22/2023 Ac tive Meloxicam 15 MG Oral 11/22/2023 Act inder Propranolol HCl 10 MG 1 tablet on an empty stomach Orally twice a day for 28 days Active Rosuvastatin Calcium 20 MG Oral 11/22/2023 Active Symbicort 160-4.5 MCG/ACT Inhalation 11/22/2023 Active Fluticasone Propionate Diskus 50 MCG/ACT Inhalation *Reorder from Enigmatec for eRx and Interaction Alerts* 11/22/2023 Active ProAir HFA 108 (90 Base) MCG/ACT Inhalation 11/22/2023 Active Nebivolol HCl 5 MG TAKE 1 TABLET (5 MG TOTAL) BY MOUTH DAILY. Oral for 30 Days Active Immunizations Vaccine Route Administration Date Status Comme nts Influenza, injectable, MDCK, preservative free Unknown 05/14/2019 Administered Influenza, quadrivalent, split virus Unknown 05/14/2019 Administered Source VF Code: V00 - [facility] eligibility not determined/unknown Influenza, unspecified formulation Unknown 07/02/2019 Administered Novel [id number]-[id number], preservative free Unknown 06/10/2020 Administered Novel Vbtoyyons-[id number], preservative free Unknown 04/06/2021 Administered Pfizer Biontech Covid-19 Vaccine 2nd dose Unknown 10/30/2020 Administered Pfizer Biontech Covid-19 Vaccine 2nd dose Unknown 11/25/2020 Administered Tdap Unknown 06/30/2017 Administered Social History Tobacco Use: Social History Observation [...] No Section Notes: Drinks ETOH on weekends. Denies dependence. Social History Substance UseDo you or have you ever smoked tobacco?: Current every day smokerHow many years have you smoked tobacco?: 0How much tobacco do you smoke?: 1 pack per weekDo you or have you ever used e-cigarettes or vape?: Never used electronic cigarettesDo you or have you ever used smokeless tobacco?: Never used smokeless tobaccoHow much tobacco do you chew?: noneWhat was the date of your most recent tobacco screening?: 11/22/2023Has tobacco cessation counseling been provided?: YesOn what date was tobacco cessation counseling provided?: 10/26/2022What is your level of alcohol consumption?: OccasionalHow many years have you consumed alcohol?: 20Do you use any illicit or recreational drugs?: NoWhich illicit or recreational drugs have you used?: NoHave you used IV drugs?: NoWhat is your level of caffeine consumption?: NoneEducation and OccupationWhat is the highest grade or level of school you have completed or the highest degree you have received?: High school graduateAre you currently employed?: NoWho is your employer?: NoneMarriage and SexualityWhat is your relationship status?: Domestic partnerAre you sexually active?: NoDo you use protection during sex?: NoHow many children do you have?: 2Home and EnvironmentDo you have any siblings?: 2Are there any smokers in your house?: YesAre there any guns present in your home?: NoDiet and ExerciseWhat type of diet are you following?: RegularAdvance DirectiveDo you have an advance directive?: NoDo you have a medical power of real estate attorney?: NoPublic Health and TravelHave you been to an area known to be high risk for COVID-19?: NoOtherDrugs Abused: pot in high schoolEducation: 12 (Notes: some college)Family history of heart disease?: YesHigh blood pressure: NoHigh Cholesterol: YesHigh number of sexual partners: NoHistory of inconsistent/no condom use: NoMarital status: DivorcedGender Identity and LGBTQ IdentitySexual orientation: Straight or heterosexual Drinks ETOH on weekends. Denies dependence. Social History Substance UseDo you or have you ever smoked tobacco?: Current every day smokerHow many years have you smoked tobacco?: 0How much tobacco do you smoke?: 1 pack per weekDo you or have you ever used e-cigarettes or vape?: Never used electronic cigarettesDo you or have you ever used smokeless tobacco?: Never used smokeless tobaccoHow much tobacco do you chew?: noneWhat was the date of your most recent tobacco screening?: 11/22/2023Has tobacco cessation counseling been provided?: YesOn what date was tobacco cessation counseling provided?: 10/26/2022What is your level of alcohol consumption?: OccasionalHow many years have you consumed alcohol?: 20Do you use any illicit or recreational drugs?: NoWhich illicit or recreational drugs have you used?: NoHave you used IV drugs?: NoWhat is your level of caffeine consumption?: NoneEducation and OccupationWhat is the highest grade or level of school you have completed or the highest degree you have received?: High school graduateAre you currently employed?: NoWho is your employer?: NoneMarriage and SexualityWhat is your relationship status?: Domestic partnerAre you sexually active?: NoDo you use protection during sex?: NoHow many children do you have?: 2Home and EnvironmentDo you have any siblings?: 2Are there any smokers in your house?: YesAre there any guns present in your home?: NoDiet and ExerciseWhat type of diet are you following?: RegularAdvance DirectiveDo you have an advance directive?: NoDo you have a medical power of real estate attorney?: NoPublic Health and TravelHave you been to an area known to be high risk for COVID-19?: NoOtherDrugs Abused: pot in high schoolEducation: 12 (Notes: some college)Family history of heart disease?: YesHigh blood pressure: NoHigh Cholesterol: YesHigh number of sexual partners: NoHistory of inconsistent/no condom use: NoMarital status: DivorcedGender Identity and LGBTQ IdentitySexual orientation: Straight or heterosexual Drinks ETOH on weekends. Denies dependence. Social History Substance UseDo you or have you ever smoked tobacco?: Current every day smokerHow many years have you smoked tobacco?: 0How much tobacco do you smoke?: 1 pack per weekDo you or have you ever used e-cigarettes or vape?: Never used electronic cigarettesDo you or have you ever used smokeless tobacco?: Never used smokeless tobaccoHow much tobacco do you chew?: noneWhat was the date of your most recent tobacco screening?: 11/22/2023Has tobacco cessation counseling been provided?: YesOn what date was tobacco cessation counseling provided?: 10/26/2022What is your level of alcohol consumption?: OccasionalHow many years have you consumed alcohol?: 20Do you use any illicit or recreational drugs?: NoWhich illicit or recreational drugs have you used?: NoHave you used IV drugs?: NoWhat is your level of caffeine consumption?: NoneEducation and OccupationWhat is the highest grade or level of school you have completed or the highest degree you have received?: High school graduateAre you currently employed?: NoWVisionarity is your employer?: NoneMarriage and SexualityWhat is your relationship status?: Domestic partnerAre you sexually active?: NoDo you use protection during sex?: NoHow many children do you have?: 2Home and EnvironmentDo you have any siblings?: 2Are there any smokers in your house?: YesAre there any guns present in your home?: NoDiet and ExerciseWhat type of diet are you following?: RegularAdvance DirectiveDo you have an advance directive?: NoDo you have a medical power of real estate attorney?: NoPublic Health and TravelHave you been to an area known to be high risk for COVID-19?: NoOtherDrugs Abused: pot in high schoolEducation: 12 (Notes: some college)Family history of heart disease?: YesHigh blood pressure: NoHigh Cholesterol: YesHigh number of sexual partners: NoHistory of inconsistent/no condom use: NoMarital status: DivorcedGender Identity and LGBTQ IdentitySexual orientation: Straight or heterosexual Drinks ETOH on weekends. Denies dependence. Social History Substance UseDo you or have you ever smoked tobacco?: Current every day smokerHow many years have you smoked tobacco?: 0How much tobacco do you smoke?: 1 pack per weekDo you or have you ever used e-cigarettes or vape?: Never used electronic cigarettesDo you or have you ever used smokeless tobacco?: Never used smokeless tobaccoHow much tobacco do you chew?: noneWhat was the date of your most recent tobacco screening?: 11/22/2023Has tobacco cessation counseling been provided?: YesOn what date was tobacco cessation counseling provided?: 10/26/2022What is your level of alcohol consumption?: OccasionalHow many years have you consumed alcohol?: 20Do you use any illicit or recreational drugs?: NoWhich illicit or recreational drugs have you used?: NoHave you used IV drugs?: NoWhat is your level of caffeine consumption?: NoneEducation and OccupationWhat is the highest grade or level of school you have completed or the highest degree you have received?: High school graduateAre you currently employed?: NoWho is your employer?: NoneMarriage and SexualityWhat is your relationship status?: Domestic partnerAre you sexually active?: NoDo you use protection during sex?: NoHow many children do you have?: 2Home and EnvironmentDo you have any siblings?: 2Are there any smokers in your house?: YesAre there any guns present in your home?: NoDiet and ExerciseWhat type of diet are you following?: RegularAdvance DirectiveDo you have an advance directive?: NoDo you have a medical power of real estate attorney?: NoPublic Health and TravelHave you been to an area known to be high risk for COVID-19?: NoOtherDrugs Abused: pot in high schoolEducation: 12 (Notes: some college)Family history of heart disease?: YesHigh blood pressure: NoHigh Cholesterol: YesHigh number of sexual partners: NoHistory of inconsistent/no condom use: NoMarital status: DivorcedGender Identity and LGBTQ IdentitySexual orientation: Straight or heterosexual Drinks ETOH on weekends. Den ies dependence Drinks ETOH on weekends. Den ies dependence Drinks ETOH on weekends. Denies dependence. Social History Substance UseDo you or have you ever smoked tobacco?: Current every day smokerHow many years have you smoked tobacco?: 0How much tobacco do you smoke?: 1 pack per weekDo you or have you ever used e-cigarettes or vape?: Never used electronic cigarettesDo you or have you ever used smokeless tobacco?: Never used smokeless tobaccoHow much tobacco do you chew?: noneWhat was the date of your most recent tobacco screening?: 11/22/2023Has tobacco cessation counseling been provided?: YesOn what date was tobacco cessation counseling provided?: 10/26/2022What is your level of alcohol consumption?: OccasionalHow many years have you consumed alcohol?: 20Do you use any illicit or recreational drugs?: NoWhich illicit or recreational drugs have you used?: NoHave you used IV drugs?: NoWhat is your level of caffeine consumption?: NoneEducation and OccupationWhat is the highest grade or level of school you have completed or the highest degree you have received?: High school graduateAre you currently employed?: NoWho is your employer?: NoneMarriage and SexualityWhat is your relationship status?: Domestic partnerAre you sexually active?: NoDo you use protection during sex?: NoHow many children do you have?: 2Home and EnvironmentDo you have any siblings?: 2Are there any smokers in your house?: YesAre there any guns present in your home?: NoDiet and ExerciseWhat type of diet are you following?: RegularAdvance DirectiveDo you have an advance directive?: NoDo you have a medical power of real estate attorney?: NoPublic Health and TravelHave you been to an area known to be high risk for COVID-19?: NoOtherDrugs Abused: pot in high schoolEducation: 12 (Notes: some college)Family history of heart disease?: YesHigh blood pressure: NoHigh Cholesterol: YesHigh number of sexual partners: NoHistory of inconsistent/no condom use: NoMarital status: DivorcedGender Identity and LGBTQ IdentitySexual orientation: Straight or heterosexual Drinks ETOH on weekends. Denies dependence. Social History Substance UseDo you or have you ever smoked tobacco?: Current every day smokerHow many years have you smoked tobacco?: 0How much tobacco do you smoke?: 1 pack per weekDo you or have you ever used e-cigarettes or vape?: Never used electronic cigarettesDo you or have you ever used smokeless tobacco?: Never used smokeless tobaccoHow much tobacco do you chew?: noneWhat was the date of your most recent tobacco screening?: 11/22/2023Has tobacco cessation counseling been provided?: YesOn what date was tobacco cessation counseling provided?: 10/26/2022What is your level of alcohol consumption?: OccasionalHow many years have you consumed alcohol?: 20Do you use any illicit or recreational drugs?: NoWhich illicit or recreational drugs have you used?: NoHave you used IV drugs?: NoWhat is your level of caffeine consumption?: NoneEducation and OccupationWhat is the highest grade or level of school you have completed or the highest degree you have received?: High school graduateAre you currently employed?: NoWVisionarity is your employer?: NoneMarriage and SexualityWhat is your relationship status?: Domestic partnerAre you sexually active?: NoDo you use protection during sex?: NoHow many children do you have?: 2Home and EnvironmentDo you have any siblings?: 2Are there any smokers in your house?: YesAre there any guns present in your home?: NoDiet and ExerciseWhat type of diet are you following?: RegularAdvance DirectiveDo you have an advance directive?: NoDo you have a medical power of real estate attorney?: NoPublic Health and TravelHave you been to an area known to be high risk for COVID-19?: NoOtherDrugs Abused: pot in high schoolEducation: 12 (Notes: some college)Family history of heart disease?: YesHigh blood pressure: NoHigh Cholesterol: YesHigh number of sexual partners: NoHistory of inconsistent/no condom use: NoMarital status: DivorcedGender Identity and LGBTQ IdentitySexual orientation: Straight or heterosexual Drinks ETOH on weekends. Den ies dependence. Drinks ETOH on weekends. Denies dependence. Social History Substance UseDo you or have you ever smoked tobacco?: Current every day smokerHow many years have you smoked tobacco?: 0How much tobacco do you smoke?: 1 pack per weekDo you or have you ever used e-cigarettes or vape?: Never used electronic cigarettesDo you or have you ever used smokeless tobacco?: Never used smokeless tobaccoHow much tobacco do you chew?: noneWhat was the date of your most recent tobacco screening?: 11/22/2023Has tobacco cessation counseling been provided?: YesOn what date was tobacco cessation counseling provided?: 10/26/2022What is your level of alcohol consumption?: OccasionalHow many years have you consumed alcohol?: 20Do you use any illicit or recreational drugs?: NoWhich illicit or recreational drugs have you used?: NoHave you used IV drugs?: NoWhat is your level of caffeine consumption?: NoneEducation and OccupationWhat is the highest grade or level of school you have completed or the highest degree you have received?: High school graduateAre you currently employed?: NoWho is your employer?: NoneMarriage and SexualityWhat is your relationship status?: Domestic partnerAre you sexually active?: NoDo you use protection during sex?: NoHow many children do you have?: 2Home and EnvironmentDo you have any siblings?: 2Are there any smokers in your house?: YesAre there any guns present in your home?: NoDiet and ExerciseWhat type of diet are you following?: RegularAdvance DirectiveDo you have an advance directive?: NoDo you have a medical power of real estate attorney?: NoPublic Health and TravelHave you been to an area known to be high risk for COVID-19?: NoOtherDrugs Abused: pot in high schoolEducation: 12 (Notes: some college)Family history of heart disease?: YesHigh blood pressure: NoHigh Cholesterol: YesHigh number of sexual partners: NoHistory of inconsistent/no condom use: NoMarital status: DivorcedGender Identity and LGBTQ IdentitySexual orientation: Straight or heterosexual Drinks ETOH on weekends. Denies dependence. Social History Substance UseDo you or have you ever smoked tobacco?: Current every day smokerHow many years have you smoked tobacco?: 0How much tobacco do you smoke?: 1 pack per weekDo you or have you ever used e-cigarettes or vape?: Never used electronic cigarettesDo you or have you ever used smokeless tobacco?: Never used smokeless tobaccoHow much tobacco do you chew?: noneWhat was the date of your most recent tobacco screening?: 11/22/2023Has tobacco cessation counseling been provided?: YesOn what date was tobacco cessation counseling provided?: 10/26/2022What is your level of alcohol consumption?: OccasionalHow many years have you consumed alcohol?: 20Do you use any illicit or recreational drugs?: NoWhich illicit or recreational drugs have you used?: NoHave you used IV drugs?: NoWhat is your level of caffeine consumption?: NoneEducation and OccupationWhat is the highest grade or level of school you have completed or the highest degree you have received?: High school graduateAre you currently employed?: NoWho is your employer?: NoneMarriage and SexualityWhat is your relationship status?: Domestic partnerAre you sexually active?: NoDo you use protection during sex?: NoHow many children do you have?: 2Home and EnvironmentDo you have any siblings?: 2Are there any smokers in your house?: YesAre there any guns present in your home?: NoDiet and ExerciseWhat type of diet are you following?: RegularAdvance DirectiveDo you have an advance directive?: NoDo you have a medical power of real estate attorney?: NoPublic Health and TravelHave you been to an area known to be high risk for COVID-19?: NoOtherDrugs Abused: pot in high schoolEducation: 12 (Notes: some college)Family history of heart disease?: YesHigh blood pressure: NoHigh Cholesterol: YesHigh number of sexual partners: NoHistory of inconsistent/no condom use: NoMarital status: DivorcedGender Identity and LGBTQ IdentitySexual orientation: Straight or heterosexual Drinks ETOH on weekends. Denies dependence. Social History Substance UseDo you or have you ever smoked tobacco?: Current every day smokerHow many years have you smoked tobacco?: 0How much tobacco do you smoke?: 1 pack per weekDo you or have you ever used e-cigarettes or vape?: Never used electronic cigarettesDo you or have you ever used smokeless tobacco?: Never used smokeless tobaccoHow much tobacco do you chew?: noneWhat was the date of your most recent tobacco screening?: 11/22/2023Has tobacco cessation counseling been provided?: YesOn what date was tobacco cessation counseling provided?: 10/26/2022What is your level of alcohol consumption?: OccasionalHow many years have you consumed alcohol?: 20Do you use any illicit or recreational drugs?: NoWhich illicit or recreational drugs have you used?: NoHave you used IV drugs?: NoWhat is your level of caffeine consumption?: NoneEducation and OccupationWhat is the highest grade or level of school you have completed or the highest degree you have received?: High school graduateAre you currently employed?: NoWho is your employer?: NoneMarriage and SexualityWhat is your relationship status?: Domestic partnerAre you sexually active?: NoDo you use protection during sex?: NoHow many children do you have?: 2Home and EnvironmentDo you have any siblings?: 2Are there any smokers in your house?: YesAre there any guns present in your home?: NoDiet and ExerciseWhat type of diet are you following?: RegularAdvance DirectiveDo you have an advance directive?: NoDo you have a medical power of real estate attorney?: NoPublic Health and TravelHave you been to an area known to be high risk for COVID-19?: NoOtherDrugs Abused: pot in high schoolEducation: 12 (Notes: some college)Family history of heart disease?: YesHigh blood pressure: NoHigh Cholesterol: YesHigh number of sexual partners: NoHistory of inconsistent/no condom use: NoMarital status: DivorcedGender Identity and LGBTQ IdentitySexual orientation: Straight or heterosexual Drinks ETOH on weekends. Den ies dependence Drinks ETOH on weekends. Den ies dependence Drinks ETOH on weekends. Den ies dependence Problems Problem Type SNOMED Code ICD Code Onset Dates Problem Status W/U Status Risk Notes Problem Severe depressed bipolar I disorder without psychotic features (06452760) Bipolar disorder, current episode depressed, severe, without psychotic features (F31.4) 11/22/19 Active confirmed Problem Bipolar disorder (39632544) Bipolar disorder, unspecified (F31.9) Active confirmed Problem Generalized anxiety disorder (10529318) Generalized anxiety disorder (F41.1) 11/22/19 Active confirmed Problem Posttraumatic stress disorder (96764884) Post-traumatic stress disorder, chronic (F43.12) Active confirmed Problem Borderline personality disorder (61477500) Borderline personality disorder (F60.3) 11/22/19 Active confirmed Problem Obstructive sleep apnea syndrome (disorder) (99944982) Obstructive sleep apnea (adult) (pediatric) (G47.33) 11/22/19 Active confirmed Problem Tardive dyskinesia (816835155) Tardive dyskinesia (G24.01) Active confirmed Problem Benzodiazepine dependence (691164839) Benzodiazepine dependence (F13.20) Active confirmed Problem Tobacco use (451195521) Nicotine use (Z72.0) Active confirmed Problem Essential hypertension (65625645) Benign essential HTN (I10) Active confirmed Vital Signs Heart Rate 79 /min 09/19/2024 Height-cm 170.18 cm 09/19/2024 Blood pressure diastolic 79 mm Hg 09/19/2024 Weight-kg 103.87 kg 09/19/2024 Height 67.00 in 09/19/2024 Blood pressure systolic 118 mm Hg 09/19/2024 Weight 229 lbs 09/19/2024 BMI 35.86 kg/m2 09/19/2024 Encounters Encounter 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 Z79.899 ; Obstructive sleep apnea (adult) (pediatric)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 slowly increasing duloxetine, perhaps for purpose of the combination's effictive in bipolar depression? She feels depression has always been more prevalent than linette. - tardive dyskinesia hx, noted in prior notes that ingrezza was helpful, was on olanzapine and vraylar.. she stopped vraylar for mouth movements, yet the ingrezza too. Denies TD currently, no movements observed today. However, given historical reports, her lack of knowledge in medication regimen, unclear of validity. Wants to stay off vraylar - lithium ER 300 mg QHS.. for sleep? suicidality? states today she does not know what purpose it is to serve. denies SI - lamotrigine 200 mg BID, perhaps controlling manic episodes, but more likely to control depressive episodes, doesn't appear to be helping. Case complex, deteremining medication timeline difficult, she is poor historian in this respect. mult ongoing issues. at this point she agrees to idea of increasing fluoxetine, recommended olanzapine/fluoxe jocelyn combination: 6-12 mg olanzapine/25-50 mg fluoxetine. Plan: - Increase Fluoxetine (Prozac) from 20 mg to 40 mg daily to better manage anxiety and depression. - dicontinue vraylar 4.5 mg (she feels it was causing mouth movements has not been taking) - restart ingrezza 80 mg daily - continue all other medications for now She reports ongoing high anxiety and requests to restart the medication. Discussed this possibility to help bridge during medication changes.However, after more indepth review of previous encounters, multiple instances occured indicating misuse, it was determined by prior providers they would not continue to prescribed, which is appriopiate and I am in agreeance. - follow up in 4 weeks 06/01/2024 Generalized anxiety disorder (ICD-10 - F41.1) this clonazepam refill was cancelled - bipolar disorder, current episode depressed. Endorses fluctuating depression, most days severe, some better than others. Exacerbated by personal stressors including family issues. - reports trouble sleeping. started using a CPAP 1 week ago, endorses intent to continue use - high anxiety, having panic attacks. hx PTSD - hx of TD, says she stopped vraylar and ingrezza due to mouth movements ? - endorses significant weight gain, poor appetite but greater appetite at night. weight gain has been ongoing problem, prior notes discuss some attempts for weight loss, though not clear how effortful - distressed from son and hx substance abuse, also appears an ongoing problem - on mutliple medications, some at either high or subtheraputic doses. Reports from her unclear of which medications are intended for what purpose, unable to really identify benefits from any. Reviewing some notes from the past provide some insight here, but overall unsure what changes to make. - weight gain and night eating r/t olanzapine? but noted in the past did not tolerate DC(?). was started on and slowly increasing duloxetine, perhaps for purpose of the combination's effictive in bipolar depression? She feels depression has always been more prevalent than linette. - tardive dyskinesia hx, noted in prior notes that ingrezza was helpful, was on olanzapine and vraylar.. she stopped vraylar for mouth movements, yet the ingrezza too. Denies TD currently, no movements observed today. However, given historical reports, her lack of knowledge in medication regimen, unclear of validity. Wants to stay off vraylar - lithium ER 300 mg QHS.. for sleep? suicidality? states today she does not know what purpose it is to serve. denies SI - lamotrigine 200 mg BID, perhaps controlling manic episodes, but more likely to control depressive episodes, doesn't appear to be helping. Case complex, deteremining medication timeline difficult, she is poor historian in this respect. mult ongoing issues. at this point she agrees to idea of increasing fluoxetine, recommended olanzapine/fluoxe jocelyn combination: 6-12 mg olanzapine/25-50 mg fluoxetine. Plan: - Increase Fluoxetine (Prozac) from 20 mg to 40 mg daily to better manage anxiety and depression. - dicontinue vraylar 4.5 mg (she feels it was causing mouth movements has not been taking) - restart ingrezza 80 mg daily - continue all other medications for now She reports ongoing high anxiety and requests to restart the medication. Discussed this possibility to help bridge during medication changes.However, after more indepth review of previous encounters, multiple instances occured indicating misuse, it was determined by prior providers they would not continue to prescribed, which is appriopiate and I am in agreeance. - follow up in 4 weeks 04/30/2024 Borderline personality disorder (ICD-10 - F60.3) Family Stress and Interpersonal Conflicts - Assessment: Jeremiah is experiencing family stress and interpersonal conflicts. - Plan: - Encourage Jeremiah to set boundaries with family members and limit exposure to family drama. - Recommend individual therapy to address coping strategies and communication skills. Alcohol Use Disorder - Assessment: Patient reports drinking heavily, including tequila and Fireball. She drinks out of boredom and to cope with stress. - Plan: - Discuss the risks of continued alcohol use, especially in relation to diabetes management. - Encourage Jeremiah to reduce alcohol intake and consider attending support groups such as Alcoholics Anonymous. - Monitor liver function tests and consider referral to internal medicine specialist if needed. Sleep Apnea - Assessment: Patient reports being tired all the time and is scheduled for sleep study. - Plan: - Schedule sleep study to confirm diagnosis and determine appropriate treatment. - Encourage Jeremiah to maintain a regular sleep schedule and practice good sleep hygiene. Anxiety and Mood Instability - Assessment: Patient reports experiencing panic attacks and anxiety, particularly when in stressful situations. - Plan: - Continue medications as prescribed. - Coordinate with primary care provider to ensure all necessary medications are prescribed and refilled as needed. Social Support - Assessment: Patient reports feeling lonely and spending time with an elderly neighbor for companionship. - Plan: - Encourage Jeremiah to maintain connections with supportive friends and neighbors. - Recommend exploring local support groups or community resources for additional social support. Each plan component addresses specific issues identified during the assessment, focusing on Jeremiah's overall health, mental well-being, and social support needs. 06/11/2024 Bipolar disorder, current episode depressed, severe, without psychotic features (ICD-10 - F31.4) 06/19/2024 Generalized anxiety disorder (ICD-10 - F41.1) Panic Attacks - Assessment: Patient reports severe panic attacks, especially while driving. - Plan: Coping skills Blood Sugar Monitoring - Assessment: No specific assessment mentioned. - Plan: Patient is advised to check blood sugar at least once a day. Substance Use - Assessment: Patient reports drinking alcohol (beer and tequila) in moderation. Patient smokes cigarettes. - Plan: Harm reduction strategies discussed. Physical Activity - Assessment: Patient has started using a step exercise machine at home. - Plan: Exercise 30 minutes a day [No changes to existing content] 06/19/2024 Borderline personality disorder (ICD-10 - F60.3) Panic Attacks - Assessment: Patient reports severe panic attacks, especially while driving. - Plan: Coping skills Blood Sugar Monitoring - Assessment: No specific assessment mentioned. - Plan: Patient is advised to check blood sugar at least once a day. Substance Use - Assessment: Patient reports drinking alcohol (beer and tequila) in moderation. Patient smokes cigarettes. - Plan: Harm reduction strategies discussed. Physical Activity - Assessment: Patient has started using a step exercise machine at home. - Plan: Exercise 30 minutes a day [No changes to existing content] 07/31/2024 Bipolar disorder, current episode depressed, severe, without psychotic features (ICD-10 - F31.4) 07/31/2024 Generalized anxiety disorder (ICD-10 - F41.1) 07/31/2024 Bipolar disorder, current episode depressed, severe, without psychotic features (ICD-10 - F31.4) bipolar disorder, current episode depressed. - Reports mood fluctuations and low motivation Plan: - Start Rexulti, month's worth of samples provided - Obtain insurance authorization if effective - Continue fluoxetine and lamotrigine without changes - Monitor response to addition of Rexulti for mood stabilization - she stopped quetiapine, never resumed lithium Anxiety and Panic Attacks - Increased anxiety and panic attacks Plan: - Initiate propranolol for physical symptoms of anxiety - Monitor response to medications Sleep Disturbances - Difficulty falling and staying asleep, history of sleep apnea Plan: - Encourage follow-up on obtaining CPAP mask for sleep apnea - Consider retrying trazodone for sleep if needed - Monitor sleep quality High Blood Pressure - Reports high blood pressure during anxiety episodes Plan: - Encourage patient to monitor blood pressure at home Follow-up: Schedule appointment in 4 weeks to evaluate response to Rexulti and propranolol, monitor anxiety, mood, sleep, weight, and blood pressure - hx of TD, denies currently, no movements observed today. - endorses significant weight gain, poor appetite but greater appetite at night. weight gain has been ongoing problem, prior notes discuss some attempts for weight loss, though not clear how effortful follow up in 4 weeks, sooner if concerns arise 08/03/2024 Generalized anxiety disorder (ICD-10 - F41.1) 08/16/2024 Bipolar disorder, current episode depressed, severe, without psychotic features (ICD-10 - F31.4) 08/16/2024 Generalized anxiety disorder (ICD-10 - F41.1) 08/24/2024 Generalized anxiety disorder (ICD-10 - F41.1) Depression - Patient reports feeling depressed and not herself Plan: - Discontinue Rexulti due to tongue issues - Restart lithium today and monitor for effectiveness Anxiety and panic attacks - Currently taking fluoxetine and propranolol twice daily - Primary care physician suggested increasing propranolol dose or trying another medication at bedtime Plan: - Continue current medications and monitor for effectiveness - Encourage follow-up with mental health provider for further evaluation and management Sleep apnea - Completed second sleep study - Found suitable mask with built-in cannula Plan: - Patient to inform provider of sleep study results when available - Encourage continued use of CPAP therapy for sleep apnea management Hypertension - Increased blood pressure, now on three beta blockers Plan: - Continue current medications; explore possibility of fluoxetine affecting blood pressure - Monitor blood pressure regularly - Encourage follow-up with primary care physician for medication adjustments if needed hx of TD - denies currently, no movements observed today. Plan: - Continue to monitor follow up in 4 weeks, sooner if concerns arise 08/28/2024 Bipolar disorder, current episode depressed, severe, without psychotic features (ICD-10 - F31.4) 08/28/2024 Borderline personality disorder (ICD-10 - F60.3) 09/03/2024 Bipolar disorder, current episode depressed, severe, without psychotic features (ICD-10 - F31.4) 09/03/2024 Post-traumatic stress disorder, chronic (ICD-10 - F43.12) 09/19/2024 Generalized anxiety disorder (ICD-10 - F41.1) Mood Disorder Assessment: Patient reports ongoing depressive symptoms. Recent restart of lithium has shown some improvement. Potential exacerbation due to psychosocial stressors, including son in rehab and pending medical diagnoses. Discussed options, would like to keep current regimen the same and follow up after medical concerns are sorted out. Plans to discuss medications with post doc fellowship as upcoming appointment Plan: - Continue lithium 300mg daily - Continue fluoxetine 40mg daily - Continue lamotrigine 200mg twice daily - Monitor for effectiveness and side effects - Reassess need for medication adjustments after cardiology consultation Anxiety Disorder Assessment: Patient experiences ongoing anxiety with panic attacks, particularly during car rides. Reports some improvement with current management. Using propranolol and [id number] anxiety patches (Blaise patches with Ashwagandha and [...] use - Consider prazosin for nightmares, pending post doc fellowship approval due to potential blood pressure effects [...] and blood pressure at home - Obtain post doc fellowship's input on psychiatric medications that may affect [...] in 6 weeks, sooner if concerns arise 11/22/2023 Bipolar disorder, current episode depressed, severe, without psychotic features (ICD-10 - F31.4) 11/22/2023 Generalized anxiety disorder (ICD-10 - F41.1) 11/22/2023 Borderline personality disorder (ICD-10 - F60.3) 11/22/2023 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 Recent restart of lithium has shown some improvement. Potential exacerbation due to psychosocial stressors, including son in rehab and pending medical diagnoses. Discussed options, would like to keep current regimen the same and follow up after medical concerns are sorted out. Plans to discuss medications with post doc fellowship as upcoming appointment Plan: - Continue lithium 300mg daily - Continue fluoxetine 40mg daily - Continue lamotrigine 200mg twice daily - Monitor for effectiveness and side effects - Reassess need for medication adjustments after cardiology consultation Anxiety Disorder Assessment: Patient experiences ongoing anxiety with panic attacks, particularly during car rides. Reports some improvement with current management. Using propranolol and [id number] anxiety patches (Blaise patches with Ashwagandha and [...] use - Consider prazosin for nightmares, pending post doc fellowship approval due to potential blood pressure effects [...] and blood pressure at home - Obtain post doc fellowship's input on psychiatric medications that may affect [...] in 6 weeks, sooner if concerns arise 09/03/2024 Generalized anxiety disorder (ICD-10 - F41.1) 08/24/2024 Bipolar disorder, current episode depressed, severe, without psychotic features (ICD-10 - F31.4) Depression - Patient reports feeling depressed and not herself Plan: - Discontinue Rexulti due to tongue issues - Restart lithium today and monitor for effectiveness Anxiety and panic attacks - Currently taking fluoxetine and propranolol twice daily - Primary care physician suggested increasing propranolol dose or trying another medication at bedtime Plan: - Continue current medications and monitor for effectiveness - Encourage follow-up with mental health provider for further evaluation and management Sleep apnea - Completed second sleep study - Found suitable mask with built-in cannula Plan: - Patient to inform provider of sleep study results when available - Encourage continued use of CPAP therapy for sleep apnea management Hypertension - Increased blood pressure, now on three beta blockers Plan: - Continue current medications; explore possibility of fluoxetine affecting blood pressure - Monitor blood pressure regularly - Encourage follow-up with primary care physician for medication adjustments if needed hx of TD - denies currently, no movements observed today. Plan: - Continue to monitor follow up in 4 weeks, sooner if concerns arise 08/28/2024 Post-traumatic stress disorder, chronic (ICD-10 - F43.12) 06/11/2024 Tardive dyskinesia (ICD-10 - G24.01) 08/24/2024 Post-traumatic stress disorder, chronic (ICD-10 - F43.12) Depression - Patient reports feeling depressed and not herself Plan: - Discontinue Rexulti due to tongue issues - Restart lithium today and monitor for effectiveness Anxiety and panic attacks - Currently taking fluoxetine and propranolol twice daily - Primary care physician suggested increasing propranolol dose or trying another medication at bedtime Plan: - Continue current medications and monitor for effectiveness - Encourage follow-up with mental health provider for further evaluation and management Sleep apnea - Completed second sleep study - Found suitable mask with built-in cannula Plan: - Patient to inform provider of sleep study results when available - Encourage continued use of CPAP therapy for sleep apnea management Hypertension - Increased blood pressure, now on three beta blockers Plan: - Continue current medications; explore possibility of fluoxetine affecting blood pressure - Monitor blood pressure regularly - Encourage follow-up with primary care physician for medication adjustments if needed hx of TD - denies currently, no movements observed today. Plan: - Continue to monitor follow up in 4 weeks, sooner if concerns arise 08/16/2024 Post-traumatic stress disorder, chronic (ICD-10 - F43.12) 07/31/2024 Generalized anxiety disorder (ICD-10 - F41.1) bipolar disorder, current episode depressed. - Reports mood fluctuations and low motivation Plan: - Start Rexulti, month's worth of samples provided - Obtain insurance authorization if effective - Continue fluoxetine and lamotrigine without changes - Monitor response to addition of Rexulti for mood stabilization - she stopped quetiapine, never resumed lithium Anxiety and Panic Attacks - Increased anxiety and panic attacks Plan: - Initiate propranolol for physical symptoms of anxiety - Monitor response to medications Sleep Disturbances - Difficulty falling and staying asleep, history of sleep apnea Plan: - Encourage follow-up on obtaining CPAP mask for sleep apnea - Consider retrying trazodone for sleep if needed - Monitor sleep quality High Blood Pressure - Reports high blood pressure during anxiety episodes Plan: - Encourage patient to monitor blood pressure at home Follow-up: Schedule appointment in 4 weeks to evaluate response to Rexulti and propranolol, monitor anxiety, mood, sleep, weight, and blood pressure - hx of TD, denies currently, no movements observed today. - endorses significant weight gain, poor appetite but greater appetite at night. weight gain has been ongoing problem, prior notes discuss some attempts for weight loss, though not clear how effortful follow up in 4 weeks, sooner if concerns arise 07/31/2024 Borderline personality disorder (ICD-10 - F60.3) 06/19/2024 Post-traumatic stress disorder, chronic (ICD-10 - F43.12) Panic Attacks - Assessment: Patient reports severe panic attacks, especially while driving. - Plan: Coping skills Blood Sugar Monitoring - Assessment: No specific assessment mentioned. - Plan: Patient is advised to check blood sugar at least once a day. Substance Use - Assessment: Patient reports drinking alcohol (beer and tequila) in moderation. Patient smokes cigarettes. - Plan: Harm reduction strategies discussed. Physical Activity - Assessment: Patient has started using a step exercise machine at home. - Plan: Exercise 30 minutes a day [No changes to existing content] 05/24/2024 Post-traumatic stress disorder, chronic (ICD-10 - F43.12) Anxiety and Clonazepam Use - Assessment: Jeremiah has been experiencing anxiety - Plan: - Continue current prescription - Recommend trying anxiety management techniques such as tapping and cognitive approaches to anxiety as discussed during the session. Sleep Apnea and CPAP Use - Assessment: Jeremiah reports discomfort and claustrophobia with CPAP use, which has impacted her compliance with the treatment for sleep apnea. She has tried both the nose cannula and face mask but discontinued use after 30 days due to discomfort. - Plan: - Schedule a follow-up sleep study to reassess Jeremiah's needs and explore alternative treatments. - Consider the possibility of an implant if CPAP continues to be intolerable. - Jeremiah mentioned that if the CPAP doesn't work, she will consider getting an implant at [facility]. 06/01/2024 Post-traumatic stress disorder, chronic (ICD-10 - F43.12) - bipolar disorder, current episode depressed. Endorses fluctuating depression, most days severe, some better than others. Exacerbated by personal stressors including family issues. - reports trouble sleeping. started using a CPAP 1 week ago, endorses intent to continue use - high anxiety, having panic attacks. hx PTSD - hx of TD, says she stopped vraylar and ingrezza due to mouth movements ? - endorses significant weight gain, poor appetite but greater appetite at night. weight gain has been ongoing problem, prior notes discuss some attempts for weight loss, though not clear how effortful - distressed from son and hx substance abuse, also appears an ongoing problem - on mutliple medications, some at either high or subtheraputic doses. Reports from her unclear of which medications are intended for what purpose, unable to really identify benefits from any. Reviewing some notes from the past provide some insight here, but overall unsure what changes to make. - weight gain and night eating r/t olanzapine? but noted in the past did not tolerate DC(?). was started on and slowly increasing duloxetine, perhaps for purpose of the combination's effictive in bipolar depression? She feels depression has always been more prevalent than linette. - tardive dyskinesia hx, noted in prior notes that ingrezza was helpful, was on olanzapine and vraylar.. she stopped vraylar for mouth movements, yet the ingrezza too. Denies TD currently, no movements observed today. However, given historical reports, her lack of knowledge in medication regimen, unclear of validity. Wants to stay off vraylar - lithium ER 300 mg QHS.. for sleep? suicidality? states today she does not know what purpose it is to serve. denies SI - lamotrigine 200 mg BID, perhaps controlling manic episodes, but more likely to control depressive episodes, doesn't appear to be helping. Case complex, deteremining medication timeline difficult, she is poor historian in this respect. mult ongoing issues. at this point she agrees to idea of increasing fluoxetine, recommended olanzapine/fluoxe jocelyn combination: 6-12 mg olanzapine/25-50 mg fluoxetine. Plan: - Increase Fluoxetine (Prozac) from 20 mg to 40 mg daily to better manage anxiety and depression. - dicontinue vraylar 4.5 mg (she feels it was causing mouth movements has not been taking) - restart ingrezza 80 mg daily - continue all other medications for now She reports ongoing high anxiety and requests to restart the medication. Discussed this possibility to help bridge during medication changes.However, after more indepth review of previous encounters, multiple instances occured indicating misuse, it was determined by prior providers they would not continue to prescribed, which is appriopiate and I am in agreeance. - follow up in 4 weeks 04/30/2024 Generalized anxiety disorder (ICD-10 - F41.1) Family Stress and Interpersonal Conflicts - Assessment: Jeremiah is experiencing family stress and interpersonal conflicts. - Plan: - Encourage Jeremiah to set boundaries with family members and limit exposure to family drama. - Recommend individual therapy to address coping strategies and communication skills. Alcohol Use Disorder - Assessment: Patient reports drinking heavily, including tequila and Fireball. She drinks out of boredom and to cope with stress. - Plan: - Discuss the risks of continued alcohol use, especially in relation to diabetes management. - Encourage Jeremiah to reduce alcohol intake and consider attending support groups such as Alcoholics Anonymous. - Monitor liver function tests and consider referral to internal medicine specialist if needed. Sleep Apnea - Assessment: Patient reports being tired all the time and is scheduled for sleep study. - Plan: - Schedule sleep study to confirm diagnosis and determine appropriate treatment. - Encourage Jeremiah to maintain a regular sleep schedule and practice good sleep hygiene. Anxiety and Mood Instability - Assessment: Patient reports experiencing panic attacks and anxiety, particularly when in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 propranolol for physical symptoms of anxiety - Monitor response to medications Sleep Disturbances - Difficulty falling and staying asleep, history of sleep apnea Plan: - Encourage follow-up on obtaining CPAP mask for sleep apnea - Consider retrying trazodone for sleep if needed - Monitor sleep quality High Blood Pressure - Reports high blood pressure during anxiety episodes Plan: - Encourage patient to monitor blood pressure at home Follow-up: Schedule appointment in 4 weeks to evaluate response to Rexulti and propranolol, monitor anxiety, mood, sleep, weight, and blood pressure - hx of TD, denies currently, no movements observed today. - endorses significant weight gain, poor appetite but greater appetite at night. weight gain has been ongoing problem, prior notes discuss some attempts for weight loss, though not clear how effortful follow up in 4 weeks, sooner if concerns arise 08/24/2024 Borderline personality disorder (ICD-10 - F60.3) Depression - Patient reports feeling depressed and not herself Plan: - Discontinue Rexulti due to tongue issues - Restart lithium today and monitor for effectiveness Anxiety and panic attacks - Currently taking fluoxetine and propranolol twice daily - Primary care physician suggested increasing propranolol dose or trying another medication at bedtime Plan: - Continue current medications and monitor for effectiveness - Encourage follow-up with mental health provider for further evaluation and management Sleep apnea - Completed second sleep study - Found suitable mask with built-in cannula Plan: - Patient to inform provider of sleep study results when available - Encourage continued use of CPAP therapy for sleep apnea management Hypertension - Increased blood pressure, now on three beta blockers Plan: - Continue current medications; explore possibility of fluoxetine affecting blood pressure - Monitor blood pressure regularly - Encourage follow-up with primary care physician for medication adjustments if needed hx of TD - denies currently, no movements observed today. Plan: - Continue to monitor follow up in 4 weeks, sooner if concerns arise 02/14/2024 Tardive dyskinesia (ICD-10 - G24.01) cont ingrezza 80mg daily 06/01/2024 Borderline personality disorder (ICD-10 - F60.3) - bipolar disorder, current episode depressed. Endorses fluctuating depression, most days severe, some better than others. Exacerbated by personal stressors including family issues. - reports trouble sleeping. started using a CPAP 1 week ago, endorses intent to continue use - high anxiety, having panic attacks. hx PTSD - hx of TD, says she stopped vraylar and ingrezza due to mouth movements ? - endorses significant weight gain, poor appetite but greater appetite at night. weight gain has been ongoing problem, prior notes discuss some attempts for weight loss, though not clear how effortful - distressed from son and hx substance abuse, also appears an ongoing problem - on mutliple medications, some at either high or subtheraputic doses. Reports from her unclear of which medications are intended for what purpose, unable to really identify benefits from any. Reviewing some notes from the past provide some insight here, but overall unsure what changes to make. - weight gain and night eating r/t olanzapine? but noted in the past did not tolerate DC(?). was started on and slowly increasing duloxetine, perhaps for purpose of the combination's effictive in bipolar depression? She feels depression has always been more prevalent than linette. - tardive dyskinesia hx, noted in prior notes that ingrezza was helpful, was on olanzapine and vraylar.. she stopped vraylar for mouth movements, yet the ingrezza too. Denies TD currently, no movements observed today. However, given historical reports, her lack of knowledge in medication regimen, unclear of validity. Wants to stay off vraylar - lithium ER 300 mg QHS.. for sleep? suicidality? states today she does not know what purpose it is to serve. denies SI - lamotrigine 200 mg BID, perhaps controlling manic episodes, but more likely to control depressive episodes, doesn't appear to be helping. Case complex, deteremining medication timeline difficult, she is poor historian in this respect. mult ongoing issues. at this point she agrees to idea of increasing fluoxetine, recommended olanzapine/fluoxe jocelyn combination: 6-12 mg olanzapine/25-50 mg fluoxetine. Plan: - Increase Fluoxetine (Prozac) from 20 mg to 40 mg daily to better manage anxiety and depression. - dicontinue vraylar 4.5 mg (she feels it was causing mouth movements has not been taking) - restart ingrezza 80 mg daily - continue all other medications for now She reports ongoing high anxiety and requests to restart the medication. Discussed this possibility to help bridge during medication changes.However, after more indepth review of previous encounters, multiple instances occured indicating misuse, it was determined by prior providers they would not continue to prescribed, which is appriopiate and I am in agreeance. - follow up in 4 weeks 03/27/2024 Post-traumatic stress disorder, chronic (ICD-10 - F43.12) Type 2 Diabetes - Assessment: Patient recently diagnosed with type 2 diabetes and currently on metformin. Reports increased hunger and gastrointestinal side effects. Patient expresses interest in Mounjaro and its potential benefits for weight loss and reducing alcohol cravings. - Plan: - Continue metformin for one month and monitor blood sugar levels. - Encourage patient to keep a journal of blood sugar readings and food intake. - Reevaluate medication effectiveness at the next appointment and consider alternative treatments such as injectable medications (e.g., Mounjaro) if necessary. Diet and Lifestyle - Assessment: Patient has made efforts to switch to a low-carb diet and is considering seeing a dietitian. Patient reports difficulty maintaining motivation for walking and finds it boring to walk alone. - Plan: - Encourage patient to consult with a dietitian for personalized meal planning and support. - Recommend incorporating more protein into meals, especially in the morning, to help regulate blood sugar levels. - Suggest increasing physical activity, aiming for a goal of 8,000 steps per day. Alcohol Consumption - Assessment: Patient reports regular alcohol consumption, which may be contributing to poor blood sugar control and overall health. Patient describes herself as a day drinker and reports drinking beer. - Plan: - Encourage patient to reduce or eliminate alcohol intake. - Discuss potential benefits of Mounjaro in reducing alcohol cravings if the patient becomes eligible for this medication. Sleep Apnea - Assessment: Patient reports having a sleep study scheduled and has stopped using CPAP. - Plan: - Encourage patient to follow through with the sleep study and discuss results with the sleep specialist. - Reinforce the importance of using CPAP if indicated by the study results. 12/16/2023 Obstructive sleep apnea (adult) (pediatric) (ICD-10 - G47.33) not treated, have recommended f/u with sleep medicine 09/19/2024 Benign essential HTN (ICD-10 - I10) Mood Disorder Assessment: Patient reports ongoing depressive symptoms. Recent restart of lithium has shown some improvement. Potential exacerbation due to psychosocial stressors, including son in rehab and pending medical diagnoses. Discussed options, would like to keep current regimen the same and follow up after medical concerns are sorted out. Plans to discuss medications with post doc fellowship as upcoming appointment Plan: - Continue lithium 300mg daily - Continue fluoxetine 40mg daily - Continue lamotrigine 200mg twice daily - Monitor for effectiveness and side effects - Reassess need for medication adjustments after cardiology consultation Anxiety Disorder Assessment: Patient experiences ongoing anxiety with panic attacks, particularly during car rides. Reports some improvement with current management. Using propranolol and xqqr-lrm-[id number] anxiety patches (Blaise patches with Ashwagandha and [...] use - Consider prazosin for nightmares, pending post doc fellowship approval due to potential blood pressure effects [...] and blood pressure at home - Obtain post doc fellowship's input on psychiatric medications that may affect [...] in 6 weeks, sooner if concerns arise 02/14/2024 Obstructive sleep apnea (adult) (pediatric) (ICD-10 - G47.33) not treated, have recommended f/u with sleep medicine 06/01/2024 Benzodiazepine dependence (ICD-10 - F13.20) - bipolar disorder, current episode depressed. Endorses fluctuating depression, most days severe, some better than others. Exacerbated by personal stressors including family issues. - reports trouble sleeping. started using a CPAP 1 week ago, endorses intent to continue use - high anxiety, having panic attacks. hx PTSD - hx of TD, says she stopped vraylar and ingrezza due to mouth movements ? - endorses significant weight gain, poor appetite but greater appetite at night. weight gain has been ongoing problem, prior notes discuss some attempts for weight loss, though not clear how effortful - distressed from son and hx substance abuse, also appears an ongoing problem - on mutliple medications, some at either high or subtheraputic doses. Reports from her unclear of which medications are intended for what purpose, unable to really identify benefits from any. Reviewing some notes from the past provide some insight here, but overall unsure what changes to make. - weight gain and night eating r/t olanzapine? but noted in the past did not tolerate DC(?). was started on and slowly increasing duloxetine, perhaps for purpose of the combination's effictive in bipolar depression? She feels depression has always been more prevalent than linette. - tardive dyskinesia hx, noted in prior notes that ingrezza was helpful, was on olanzapine and vraylar.. she stopped vraylar for mouth movements, yet the ingrezza too. Denies TD currently, no movements observed today. However, given historical reports, her lack of knowledge in medication regimen, unclear of validity. Wants to stay off vraylar - lithium ER 300 mg QHS.. for sleep? suicidality? states today she does not know what purpose it is to serve. denies SI - lamotrigine 200 mg BID, perhaps controlling manic episodes, but more likely to control depressive episodes, doesn't appear to be helping. Case complex, deteremining medication timeline difficult, she is poor historian in this respect. mult ongoing issues. at this point she agrees to idea of increasing fluoxetine, recommended olanzapine/fluoxe jocelyn combination: 6-12 mg olanzapine/25-50 mg fluoxetine. Plan: - Increase Fluoxetine (Prozac) from 20 mg to 40 mg daily to better manage anxiety and depression. - dicontinue vraylar 4.5 mg (she feels it was causing mouth movements has not been taking) - restart ingrezza 80 mg daily - continue all other medications for now She reports ongoing high anxiety and requests to restart the medication. Discussed this possibility to help bridge during medication changes.However, after more indepth review of previous encounters, multiple instances occured indicating misuse, it was determined by prior providers they would not continue to prescribed, which is appriopiate and I am in agreeance. - follow up in 4 weeks 07/31/2024 Borderline personality disorder (ICD-10 - F60.3) bipolar disorder, current episode depressed. - Reports mood fluctuations and low motivation Plan: - Start Rexulti, month's worth of samples provided - Obtain insurance authorization if effective - Continue fluoxetine and lamotrigine without changes - Monitor response to addition of Rexulti for mood stabilization - she stopped quetiapine, never resumed lithium Anxiety and Panic Attacks - Increased anxiety and panic attacks Plan: - Initiate propranolol for physical symptoms of anxiety - Monitor response to medications Sleep Disturbances - Difficulty falling and staying asleep, history of sleep apnea Plan: - Encourage follow-up on obtaining CPAP mask for sleep apnea - Consider retrying trazodone for sleep if needed - Monitor sleep quality High Blood Pressure - Reports high blood pressure during anxiety episodes Plan: - Encourage patient to monitor blood pressure at home Follow-up: Schedule appointment in 4 weeks to evaluate response to Rexulti and propranolol, monitor anxiety, mood, sleep, weight, and blood pressure - hx of TD, denies currently, no movements observed today. - endorses significant weight gain, poor appetite but greater appetite at night. weight gain has been ongoing problem, prior notes discuss some attempts for weight loss, though not clear how effortful follow up in 4 weeks, sooner if concerns arise 08/24/2024 Nicotine dependence with current use (ICD-10 - F17.200) Depression - Patient reports feeling depressed and not herself Plan: - Discontinue Rexulti due to tongue issues - Restart lithium today and monitor for effectiveness Anxiety and panic attacks - Currently taking fluoxetine and propranolol twice daily - Primary care physician suggested increasing propranolol dose or trying another medication at bedtime Plan: - Continue current medications and monitor for effectiveness - Encourage follow-up with mental health provider for further evaluation and management Sleep apnea - Completed second sleep study - Found suitable mask with built-in cannula Plan: - Patient to inform provider of sleep study results when available - Encourage continued use of CPAP therapy for sleep apnea management Hypertension - Increased blood pressure, now on three beta blockers Plan: - Continue current medications; explore possibility of fluoxetine affecting blood pressure - Monitor blood pressure regularly - Encourage follow-up with primary care physician for medication adjustments if needed hx of TD - denies currently, no movements observed today. Plan: - Continue to monitor follow up in 4 weeks, sooner if concerns arise 09/19/2024 Obstructive [...] sorted out. Plans to discuss medications with post doc fellowship as upcoming appointment Plan: - Continue lithium 300mg daily - Continue fluoxetine 40mg daily - Continue lamotrigine 200mg twice daily - Monitor for effectiveness and side effects - Reassess need for medication adjustments after cardiology consultation Anxiety Disorder Assessment: Patient experiences ongoing anxiety with panic attacks, particularly during car rides. Reports some improvement with current management. Using propranolol and nxfj-lme-[id number] anxiety patches (Blaise patches with Ashwagandha and [...] use - Consider prazosin for nightmares, pending post doc fellowship approval due to potential blood pressure effects [...] and blood pressure at home - Obtain post doc fellowship's input on psychiatric medications that may affect [...] in 6 weeks, sooner if concerns arise 08/24/2024 Benign essential HTN (ICD-10 - I10) Depression - Patient reports feeling depressed and not herself Plan: - Discontinue Rexulti due to tongue issues - Restart lithium today and monitor for effectiveness Anxiety and panic attacks - Currently taking fluoxetine and propranolol twice daily - Primary care physician suggested increasing propranolol dose or trying another medication at bedtime Plan: - Continue current medications and monitor for effectiveness - Encourage follow-up with mental health provider for further evaluation and management Sleep apnea - Completed second sleep study - Found suitable mask with built-in cannula Plan: - Patient to inform provider of sleep study results when available - Encourage continued use of CPAP therapy for sleep apnea management Hypertension - Increased blood pressure, now on three beta blockers Plan: - Continue current medications; explore possibility of fluoxetine affecting blood pressure - Monitor blood pressure regularly - Encourage follow-up with primary care physician for medication adjustments if needed hx of TD - denies currently, no movements observed today. Plan: - Continue to monitor follow up in 4 weeks, sooner if concerns arise 07/31/2024 Obstructive sleep apnea (adult) (pediatric) (ICD-10 - G47.33) bipolar disorder, current episode depressed. - Reports mood fluctuations and low motivation Plan: - Start Rexulti, month's worth of samples provided - Obtain insurance authorization if effective - Continue fluoxetine and lamotrigine without changes - Monitor response to addition of Rexulti for mood stabilization - she stopped quetiapine, never resumed lithium Anxiety and Panic Attacks - Increased anxiety and panic attacks Plan: - Initiate propranolol for physical symptoms of anxiety - Monitor response to medications Sleep Disturbances - Difficulty falling and staying asleep, history of sleep apnea Plan: - Encourage follow-up on obtaining CPAP mask for sleep apnea - Consider retrying trazodone for sleep if needed - Monitor sleep quality High Blood Pressure - Reports high blood pressure during anxiety episodes Plan: - Encourage patient to monitor blood pressure at home Follow-up: Schedule appointment in 4 weeks to evaluate response to Rexulti and propranolol, monitor anxiety, mood, sleep, weight, and blood pressure - hx of TD, denies currently, no movements observed today. - endorses significant weight gain, poor appetite but greater appetite at night. weight gain has been ongoing problem, prior notes discuss some attempts for weight loss, though not clear how effortful follow up in 4 weeks, sooner if concerns arise 06/01/2024 Obstructive sleep apnea (adult) (pediatric) (ICD-10 - G47.33) - bipolar disorder, current episode depressed. Endorses fluctuating depression, most days severe, some better than others. Exacerbated by personal stressors including family issues. - reports trouble sleeping. started using a CPAP 1 week ago, endorses intent to continue use - high anxiety, having panic attacks. hx PTSD - hx of TD, says she stopped vraylar and ingrezza due to mouth movements ? - endorses significant weight gain, poor appetite but greater appetite at night. weight gain has been ongoing problem, prior notes discuss some attempts for weight loss, though not clear how effortful - distressed from son and hx substance abuse, also appears an ongoing problem - on mutliple medications, some at either high or subtheraputic doses. Reports from her unclear of which medications are intended for what purpose, unable to really identify benefits from any. Reviewing some notes from the past provide some insight here, but overall unsure what changes to make. - weight gain and night eating r/t olanzapine? but noted in the past did not tolerate DC(?). was started on and slowly increasing duloxetine, perhaps for purpose of the combination's effictive in bipolar depression? She feels depression has always been more prevalent than linette. - tardive dyskinesia hx, noted in prior notes that ingrezza was helpful, was on olanzapine and vraylar.. she stopped vraylar for mouth movements, yet the ingrezza too. Denies TD currently, no movements observed today. However, given historical reports, her lack of knowledge in medication regimen, unclear of validity. Wants to stay off vraylar - lithium ER 300 mg QHS.. for sleep? suicidality? states today she does not know what purpose it is to serve. denies SI - lamotrigine 200 mg BID, perhaps controlling manic episodes, but more likely to control depressive episodes, doesn't appear to be helping. Case complex, deteremining medication timeline difficult, she is poor historian in this respect. mult ongoing issues. at this point she agrees to idea of increasing fluoxetine, recommended olanzapine/fluoxe jocelyn combination: 6-12 mg olanzapine/25-50 mg fluoxetine. Plan: - Increase Fluoxetine (Prozac) from 20 mg to 40 mg daily to better manage anxiety and depression. - dicontinue vraylar 4.5 mg (she feels it was causing mouth movements has not been taking) - restart ingrezza 80 mg daily - continue all other medications for now She reports ongoing high anxiety and requests to restart the medication. Discussed this possibility to help bridge during medication changes.However, after more indepth review of previous encounters, multiple instances occured indicating misuse, it was determined by prior providers they would not continue to prescribed, which is appriopiate and I am in agreeance. - follow up in 4 weeks 09/19/2024 Nicotine use (ICD-10 - Z72.0) Mood Disorder Assessment: Patient reports ongoing depressive symptoms. Recent restart of lithium has shown some improvement. Potential exacerbation due to psychosocial stressors, including son in rehab and pending medical diagnoses. Discussed options, would like to keep current regimen the same and follow up after medical concerns are sorted out. Plans to discuss medications with post doc fellowship as upcoming appointment Plan: - Continue lithium 300mg daily - Continue fluoxetine 40mg daily - Continue lamotrigine 200mg twice daily - Monitor for effectiveness and side effects - Reassess need for medication adjustments after cardiology consultation Anxiety Disorder Assessment: Patient experiences ongoing anxiety with panic attacks, particularly during car rides. Reports some improvement with current management. Using propranolol and [id number] anxiety patches (Blaise patches with Ashwagandha and [...] use - Consider prazosin for nightmares, pending post doc fellowship approval due to potential blood pressure effects [...] and blood pressure at home - Obtain post doc fellowship's input on psychiatric medications that may affect [...] in 6 weeks, sooner if concerns arise 08/24/2024 Obstructive sleep apnea (adult) (pediatric) (ICD-10 - G47.33) Depression - Patient reports feeling depressed and not herself Plan: - Discontinue Rexulti due to tongue issues - Restart lithium today and monitor for effectiveness Anxiety and panic attacks - Currently taking fluoxetine and propranolol twice daily - Primary care physician suggested increasing propranolol dose or trying another medication at bedtime Plan: - Continue current medications and monitor for effectiveness - Encourage follow-up with mental health provider for further evaluation and management Sleep apnea - Completed second sleep study - Found suitable mask with built-in cannula Plan: - Patient to inform provider of sleep study results when available - Encourage continued use of CPAP therapy for sleep apnea management Hypertension - Increased blood pressure, now on three beta blockers Plan: - Continue current medications; explore possibility of fluoxetine affecting blood pressure - Monitor blood pressure regularly - Encourage follow-up with primary care physician for medication adjustments if needed hx of TD - denies currently, no movements observed today. Plan: - Continue to monitor follow up in 4 weeks, sooner if concerns arise 09/19/2024 Encounter [...] sorted out. Plans to discuss medications with post doc fellowship as upcoming appointment Plan: - Continue lithium 300mg daily - Continue fluoxetine 40mg daily - Continue lamotrigine 200mg twice daily - Monitor for effectiveness and side effects - Reassess need for medication adjustments after cardiology consultation Anxiety Disorder Assessment: Patient experiences ongoing anxiety with panic attacks, particularly during car rides. Reports some improvement with current management. Using propranolol and [id number] anxiety patches (Blaise patches with Ashwagandha and [...] use - Consider prazosin for nightmares, pending post doc fellowship approval due to potential blood pressure effects [...] and blood pressure at home - Obtain post doc fellowship's input on psychiatric medications that may affect [...] in 6 weeks, sooner if concerns arise 12/16/2023 Other 07/31/2024 Other Panic Attacks - Assessment: Patient experienced multiple panic attacks in July, often triggered by family stressors and being alone, leading to manager adult visits and hospitalizations. - Plan: - Continue monitoring symptoms and consider referral to a psychiatrist for further evaluation and management. - Educate the patient on relaxation techniques and DBT coping strategies for managing panic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
--- OUTSIDE RECORDS SUMMARY | 2024-10-29 12:41 | XMS_ITS | Encounter Summary ---
Author Organization [facility] Healthcare Address [address] [place] [address] Care Team Providers Care Assistant Cross Country Coach Name Role Phone Inez New Primary Care Provider [phone] Candido Guerin MD Unavailable [phone] Anthony Diez MD Unavailable [phone] Encounter Details Date Type Department Care Team (Late st Contact Info) Description 11/29/2023 Orders Only 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
[2024-10-29 12:45] LABS: Basophils Percent Auto 0.3 % (0.2-1.2); Eosinophils Absolute Auto 0.1 K/mm3 (0-0.3); Eosinophils Percent Auto 1.1 % (0-4.4); Hematocrit 44.5 % (37.0-47.0); Hemoglobin 14.3 g/dL (12.0-15.0); Immature Granulocyte Absolute 0.03 K/mm3 (0.00-0.031); Immature Granulocyte Percent A 0.3 % (0-0.5); Lymphocytes Absolute Auto 1.21 K/mm3 (0.9-3.2); Lymphocytes Percent Auto 13.4 % (18.3-44.2); Mean Corpuscular HGB Conc 32.1 g/dl (32-36); Mean Corpuscular Hemoglobin 32.2 pg (26-34); Mean Corpuscular Volume 100.2 fl (80-100); Monocytes Absolute Auto 0.7 K/mm3 (0.1-0.6); Monocytes Percent Auto 7.6 % (2.6-8.5); Neutrophils Percent Auto 77.3 % (45.5-73.1); Platelet Count Result 225 k/mm3 (150-375); Red Blood Count 4.44 M/mm3 (4.2-5.4); Red Cell Distribution Width 13.8 % (11.5-14.5)
[2024-10-29 12:56] LABS: Alanine Aminotransferase 29 U/L (6-35); Albumin Level 4.2 g/dL (3.5-5.1); Alkaline Phosphatase 82 U/L (38-126); Anion Gap 9 mmol/L (4-12); Aspartate Amino Transferase 36 U/L (14-36); Bilirubin,Total 0.8 mg/dL (0.2-1.3); Blood Urea Nitrogen 7 mg/dL (7-17); Calcium 9.1 mg/dL (8.4-10.2); Carbon Dioxide 26 mmol/L (22-30); Chloride 101 mmol/L (98-107); Estimated CRCL calculation 123 ml/min; Estimated Glomerular Filt Rate > 60; Glucose 83 mg/dL (65-110); Potassium 4.3 mmol/L (3.4-5.0); Sodium 136 mmol/L (137-145)
[2024-10-29 12:58] LABS: Partial Thromboplastin Time 27.5 Seconds (22.3-36.8); Prothrombin Time 13.4 Seconds (11.1-14.7)
--- NOTE | 2024-10-29 13:09 | PC.NURSE ---
Dr. Vargas at bedside at bedside speaking with pt.
--- OUTSIDE RECORDS SUMMARY | 2024-10-29 14:23 | XMS_ITS | Encounter Summary ---
Author Organization [facility] Healthcare Address [address] [place] [address] Care Team Providers Care Detective Youth Bureau Name Role Phone Inez New Primary Care Provider + [phone] Candido Guerin MD Unavailable [phone] Anthony Diez MD Unavailable [phone] Encounter Details Date Type Department Care Team (Late st Contact Info) Description 09/04/2024 Results Follow-Up [facility] Family Medicine [address] [place] [address] Inez New PA [address] [address] Social History Tobacco Use Types [...] on file Legal 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 Gender Identity Not on file Sexual Orientation Not on file Occupation Industry Job Start Date Job End Date Disabled Not on file Not on file Not on file documented as of this encounter Plan of Treatment Not on file documented as of this encounter Visit Diagnoses Not on filedocumented in this encounter Care Teams Detective Youth Bureau Relationship Specialty Start Date End Date Inez New PA [address] [place] [address] PCP - General 09/14/17 Candido Guerin MD [address] [place] [address] Consulting Physician Gastroenterology 05/04/23 Anthony Diez MD [address] [place] [address] Consulting Physician Rheumatology 09/18/24 documented as of this encounter
--- OUTSIDE RECORDS SUMMARY | 2024-10-29 14:23 | XMS_ITS | Encounter Summary ---
Author Organization [facility] Facility Care Team Providers Care Plate Take Out Worker Name Role Phone Inez New Primary Care Provider [phone] Candido Guerin MD Unavailable [phone] Anthony Diez MD Unavailable [phone] Encounter Details Date Type Department Care Team (Latest Contact Info) Description 10/07/2017 Orders Only [facility] ProviderVishal MD [address] [place] [address] Social History Tobacco Use Types Packs/Day Years Used Date Smoking Tobacco: Never Assessed Comments Unknown Sex and Gender Information Value Date Recorded Sex Assigned at Not on file 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
--- OUTSIDE RECORDS SUMMARY | 2024-10-29 14:23 | XMS_ITS | Encounter Summary ---
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
--- OUTSIDE RECORDS SUMMARY | 2024-10-29 14:23 | XMS_ITS | Encounter Summary ---
Author Organization [facility] Facility Care Team Providers Care Pharmaceutical Sales Representative Name Role Phone Inez New Primary Care Provider [phone] Candido Guerin MD Unavailable [phone] Anthony Diez MD Unavailable [phone] Encounter Details Date Type Department Care Team (Latest Contact Info) Description 09/26/2015 Orders Only [facility] ProviderVishal MD [address] [place], [place] [id number] Social History Tobacco Use Types Packs/Day Years Used Date Smoking Tobacco: Never Assessed Comments Unknown Sex and Gender Information Value Date Recorded Sex Assigned at Not on file Legal Sex Female 4:54 AM DIRECTOR SPEECH LANGUAGE Gender Identity Not on file Sexual Orientation [...] documented as of this encounter Care Teams Pharmaceutical Sales Representative Relationship Specialty Start Date End Date Inez New PA [address] [place] [address] PCP - General 09/14/17 Candido Guerin MD [address] [place] [address] Consulting Physician Gastroenterology 05/04/23 Anthony Diez MD [address] [place] [address] Consulting Physician Rheumatology 09/18/24 documented as of this encounter
--- OUTSIDE RECORDS SUMMARY | 2024-10-29 14:23 | XMS_ITS | Referral Summary ---
Author Organization [facility] [address] [place] [address] Care Team Providers Care Landscape Nurseryman Name Role Phone Inez New Primary Care Provider + [phone] Candido Guerin MD Unavailable [phone] Anthony Diez MD Unavailable [phone] Encounters Date Type Department Care Team Description 10/15/2024 Telephone [facility] [address] [facility] [address] [place] [phone] Sandy Ramirez MA Successful Phone Call ([facility]HER[facility]) 10/03/2024 Orders Only [facility] Health Information Management [address] [place] [id number] Scanning, Provider 10/02/2024 Orders Only [facility] [address] [place] [phone] Inez New PA Enlarged liver (Primary Dx); Bile duct abnormality 09/28/2024 Telephone [facility] [address] [place] [phone] Inez New PA 09/27/2024 Orders Only [facility] Health Information Management [address] [place] [phone] Inez New PA 09/24/2024 Documentation [facility] Medical [facility] Cardiology [address] [place] [address] Tessie Rice MA 09/21/2024 Telephone [facility] Accountable Care Organization [address] [place] [id number] Antonella Costa Chart Review ([facility] Med Adherence ) 09/11/2024 Orders Only [facility] Internal Medicine [facility] [place] [address] [place] [address] Inez New PA Need for RSV vaccination (Primary Dx) 09/05/2024 Orders Only [facility] [address] [place] [address] Inez New PA Positive HARRIETT (antinuclear antibody) (Primary Dx) 09/05/2024 Orders Only [facility] [address] [place] [address] Inez New PA Positive HARRIETT (antinuclear antibody) (Primary Dx) 09/04/2024 Results Follow-Up [facility] Medicine [address] [place] [address] Inez New PA 08/28/2024 Orders Only [facility] Medicine [address] [place] [address] Inez New PA Dizziness (Primary Dx); Persistent headaches 08/28/2024 Orders Only [facility] [address] [place] [address] Inez New PA Facial rash (Primary Dx) 08/24/2024 Orders Only [facility] Health Information Management [address] [place] [phone] Inez New PA 08/24/2024 Telephone [facility] [address] [place] [address] Jeffy Manuel MD Cpap titration results / cpap order 08/23/[address] [place] [phone] Inez New PA 08/23/[address] [place] [phone] Inez New PA Medication Request 08/23/[address] [place] [phone] Inez New PA 08/23/2024 7:47 PM CREDENTIALING MANAGER - 08/23/2024 11:59 PM CREDENTIALING MANAGER Hospital Encounter [facility] [address] [place] [address] SHERRY (obstructive sleep apnea) Discharge Disposition: Discharge to home or self care 08/20/[address] [place] [phone] Inez New PA 08/15/2024 10:00 AM CREDENTIALING MANAGER Office Visit [address] [place] [phone] Inez New PA Annual physical exam [...] (HCC); Essential (primary) hypertension 08/01/2024 11:00 AM CREDENTIALING MANAGER Telemedicine [address] [place] [phone] Inez New PA Type 2 diabetes [...] complication, without long-term current use of insulin ([facility]) Use daily for monitoring of [...] 08/26/2024 Assessment & Plan (08/26/2024 4:47 PM CREDENTIALING MANAGER): This is a significant, separately identifiable problem [...] 08/26/2024 Assessment & Plan (08/26/2024 4:46 PM CREDENTIALING MANAGER): Encouraged healthy lifestyle, good nutrition and exercise. Encouraged Calcium and Vitamin D and weight bearing exercise for bone health. Reviewed immunizations Reviewed age appropirate screenings. Hypertension associated with diabetes 08/15/2024 Assessment & Plan (08/26/2024 4:38 PM CREDENTIALING MANAGER): Blood pressure still isn't perfectly controlled. Continue with the lisinopril 20. She has not been taking the propranolol so will switch to Bystolic 5 for a q.d. dosing and see how she does. Call in a week with readings. BMI 40.0-44.9, adult 06/11/2024 Assessment & Plan (08/15/2024 10:04 AM CREDENTIALING MANAGER): Discussed the patient's BMI. The BMI is above average. BMI management plan is completed. BMI Follow-up includes: nutrition counseling, exercise counseling and education provided. Assessment & Plan (08/01/2024 11:21 AM CREDENTIALING MANAGER): Discussed the patient's BMI. The BMI is above average. BMI management plan is completed. BMI Follow-up includes: nutrition counseling, exercise counseling and education provided. Assessment & Plan (06/11/2024 12:16 PM CREDENTIALING MANAGER): Discussed the patient's BMI. The BMI is above average. BMI management plan is completed. BMI Follow-up includes: nutrition counseling, exercise counseling and education provided. Elevated TSH 03/17/2024 Assessment & Plan (03/18/2024 8:08 PM CDT): Check labs Abnormal thyroid screen (blood) 03/17/2024 Type 2 diabetes mellitus wit hout complication, without long-term current use of insulin 03/17/2024 Assessment & Plan (08/26/2024 4:37 PM CREDENTIALING MANAGER): Stressed importance of continued A1c control to minimize the terminal operator effects of diabetes. Bring accuchecks to office when instructed to do so. Check A1c about every 3-6 months. Take medication as prescribed. Get annual eye exam. Encouraged GLENDY/Statin if able to tolerate. Encouraged weight control and encouraged diabetic diet and exercise. Continue with metformin 500 el A1c is tightly controlled at 5.8 Assessment & Plan (08/13/2024 1:18 PM CREDENTIALING MANAGER): Stressed importance of continued A1c control to minimize the terminal operator effects of diabetes. Bring accuchecks to office when instructed to do so. Check A1c about every 3-6 months. Take medication as prescribed. Get annual eye exam. Encouraged GLENDY/Statin if able to tolerate. Encouraged weight control and encouraged diabetic diet and exercise. A1c is nicely controlled at 5.9. Continue metformin 500 mg Assessment & Plan (06/11/2024 12:15 PM CREDENTIALING MANAGER): Stressed importance of continued A1c control to minimize the terminal operator effects of diabetes. Bring accuchecks to office [...] Discussed with patient at length diabetes, pathogenesis, terminal operator sequela, end organ damage, diet/exercise/weight loss, and [...] feet on a regular basis to avoid half-way problems. Offered referral to state epidemiologist. Start metformin 500 mg 1 tablet daily [...] referral Assessment & Plan (09/07/2023 10:34 PM CREDENTIALING MANAGER): Ears are clear. Suspect eustachian tube dysfunction. Recommend Flonase, mucinex and antihistamine. If symptoms persist, may need ENT referral. Morbid obesity 07/22/2022 Assessment & Plan (08/26/2024 4:37 PM CREDENTIALING MANAGER): Discussed the patient's BMI. The BMI is above average. BMI management plan is completed. BMI Follow-up includes: nutrition counseling, exercise counseling and education provided. Assessment & Plan (08/01/2024 11:22 AM CREDENTIALING MANAGER): Discussed the patient's BMI. The BMI is above average. BMI management plan is completed. BMI Follow-up includes: nutrition counseling, exercise counseling and education provided. Assessment & Plan (06/11/2024 12:15 PM CREDENTIALING MANAGER): Discussed the patient's BMI. The BMI is above average. BMI management plan is completed. BMI Follow-up includes: nutrition counseling, exercise counseling and education provided. Assessment & Plan (03/18/2024 8:06 PM CDT): Discussed the patient's BMI. The BMI is above average. BMI management plan is completed. BMI Follow-up includes: nutrition counseling, exercise counseling and education provided. Assessment & Plan (09/07/2023 10:31 PM CREDENTIALING MANAGER): Discussed the patient's BMI. The BMI is above average. BMI management plan is completed. BMI Follow-up includes: nutrition counseling, exercise counseling and education provided. Patient has an obesity-related condition (not limited to: hypertension, obstructive sleep apnea, osteoarthritis, hyperlipidemia, diabetes, etc.). Therefore, morbid obesity may be documented for patients with a BMI between 35.00-39.99. Assessment & Plan (05/21/2023 3:46 PM CREDENTIALING MANAGER): Discussed the patient's BMI. The BMI is above average. BMI management plan is completed. BMI Follow-up includes: nutrition counseling, exercise counseling and education provided. Patient has an obesity-related condition (not limited to: hypertension, obstructive sleep apnea, osteoarthritis, hyperlipidemia, diabetes, etc.). Therefore, morbid obesity may be documented for patients with a BMI between 35.00-39.99. Assessment & Plan (07/22/2022 2:01 PM CREDENTIALING MANAGER): Discussed the patient's BMI. The BMI is above average. BMI management plan is completed. BMI Follow-up includes: nutrition counseling, exercise counseling and education provided. Patient has an obesity-related condition (not limited to: hypertension, obstructive sleep apnea, osteoarthritis, hyperlipidemia, diabetes, etc.). Therefore, morbid obesity may be documented for patients with a BMI between 35.00-39.99. Symptomatic anemia 05/28/2022 Assessment & Plan (09/07/2023 10:29 PM CREDENTIALING MANAGER): Known anemia. Has had transfusion. Continue to [...] Guajardo Assessment & Plan (06/14/2020 5:55 PM CREDENTIALING MANAGER): Refer back to Ortho. Offered PT. She [...] 09/11/2019 Assessment & Plan (06/11/2024 12:15 PM CREDENTIALING MANAGER): Mammogram order provided Assessment & Plan (08/23/2021 9:43 PM CREDENTIALING MANAGER): Mammogram order provided Assessment & Plan (09/26/2020 8:30 PM CDT): Mammogram order provided Assessment & Plan (09/11/2019 9:21 AM CDT): Mammogram order provided Sciatica of right side 06/17/2019 Assessment & Plan (06/17/2019 6:14 PM CREDENTIALING MANAGER): Voltaren gel Exercise/Start PT Followup if sxs worsen or don't improved. Vertigo 02/28/2019 Assessment & Plan (03/18/2024 8:06 PM CDT): Uses meclizine p.r.n. with good results Assessment & Plan (09/26/2020 8:29 PM CDT): antivert prn Assessment & Plan (03/15/2020 11:09 AM CDT): Persitent vertigo. 02/2020 CT head was essentially negative. She has finally agreed to vestibular therapy. Will still change neurology referral from [place] to [place] as patient able to arranage transportation easier. [...] 09/2018 Assessment & Plan (08/26/2024 4:36 PM CREDENTIALING MANAGER): Encouraged patient to follow low fat/low chol diet like the Mediterranean diet. Increase good fats in the diet. Increase exercise. Monitor labs as needed. Continue Crestor Assessment & Plan (08/13/2024 1:17 PM CREDENTIALING MANAGER): Encouraged patient to follow low fat/low chol diet like the Mediterranean diet. Increase good fats in the diet. Increase exercise. Monitor labs as needed. Continue Crestor Assessment & Plan (06/11/2024 11:51 AM CREDENTIALING MANAGER): Stressed importance of continued A1c control to minimize the terminal operator effects of diabetes. Bring accuchecks to office [...] 5.9. Tolerating the metformin without difficulty Continue [facility] 20 Assessment & Plan (03/18/2024 8:04 PM CDT): Stressed importance of continued A1c control to minimize the half-way effects of diabetes. Bring accuchecks to office [...] Crestor Assessment & Plan (09/07/2023 10:30 PM CREDENTIALING MANAGER): Encouraged patient to follow low fat/low chol diet like the Mediterranean diet. Increase good fats in the diet. Increase exercise. Monitor labs as needed. Continue with Crestor Assessment & Plan (05/21/2023 3:44 PM CREDENTIALING MANAGER): Encouraged patient to follow low fat/low chol diet like the Mediterranean diet. Increase good fats in the diet. Increase exercise. Monitor labs as needed. Continue Crestor Assessment & Plan (07/22/2022 1:49 PM CREDENTIALING MANAGER): Encouraged patient to follow low fat/low chol diet like the Mediterranean diet. Increase good fats in the diet. Increase exercise. Monitor labs as needed. Continue Crestor Assessment & Plan (08/23/2021 9:42 PM CREDENTIALING MANAGER): Encouraged patient to follow fat/low chol diet [...] 12/04/2018 Assessment & Plan (06/11/2024 12:15 PM CREDENTIALING MANAGER): Encouraged smoking cessation. Discussed 3 minutes. Reviewed options for assistance with cessation. Reviewed terminal operator sequela associated with smoking. Pt declines assistance at this time but may contact the office at anytime for further help as they desire. Assessment & Plan (03/18/2024 8:05 PM CDT): Encouraged smoking cessation. Discussed 3 minutes. Reviewed options for assistance with cessation. Reviewed half-way sequela associated with smoking. Pt declines assistance at this time but may contact the office at anytime for further help as they desire. Declines low-dose CT at this point Assessment & Plan (09/07/2023 10:30 PM CREDENTIALING MANAGER): Encouraged smoking cessation. Discussed 3 minutes. Reviewed options for assistance with cessation. Reviewed half-way sequela associated with smoking. Pt declines assistance at this time but may contact the office at anytime for further help as they desire. Assessment & Plan (07/22/2022 1:47 PM CREDENTIALING MANAGER): Encouraged smoking cessation. Discussed 3 minutes. Reviewed options for assistance with cessation. Reviewed half-way sequela associated with smoking. Pt declines assistance at this time but may contact the office at anytime for further help as they desire. Assessment & Plan (08/23/2021 9:42 PM CREDENTIALING MANAGER): Encouraged smoking cessation. Discussed 3 minutes. Reviewed options for assistance with cessation. Reviewed terminal operator sequela associated with smoking. Pt declines assistance at this time but may contact the office at anytime for further help as they desire. Assessment & Plan (04/08/2021 2:56 PM CDT): Encouraged smoking cessation. Discussed 3 minutes. Reviewed options for assistance with cessation. Reviewed half-way sequela associated with smoking. Pt declines assistance at this time but may contact the office at anytime for further help as they desire. Assessment & Plan (01/18/2021 11:39 PM CDT): Encouraged smoking cessation. Discussed 3 minutes. Reviewed options for assistance with cessation. Reviewed terminal operator sequela associated with smoking. Pt declines assistance at this time but may contact the office at anytime for further help as they desire. Assessment & Plan (09/26/2020 8:30 PM CDT): Encouraged smoking cessation. Discussed 3 minutes. Reviewed options for assistance with cessation. Reviewed half-way sequela associated with smoking. Pt declines assistance at this time but may contact the office at anytime for further help as they desire. Assessment & Plan (06/14/2020 5:55 PM CREDENTIALING MANAGER): Encouraged smoking cessation. Discussed 3 minutes. Reviewed options for assistance with cessation. Reviewed terminal operator sequela associated with smoking. Pt declines assistance at this time but may contact the office at anytime for further help as they desire. Assessment & Plan (03/15/2020 11:10 AM CDT): Encouraged smoking cessation. Discussed 3 minutes. Reviewed options for assistance with cessation. Reviewed terminal operator sequela associated with smoking. Pt declines assistance [...] Reviewed options for assistance with cessation. Reviewed terminal operator sequela associated with smoking. Pt declines assistance at this time but may contact the office at anytime for further help as they desire. Assessment & Plan (06/17/2019 6:16 PM CREDENTIALING MANAGER): Encouraged smoking cessation. Discussed 3 minutes. Reviewed options for assistance with cessation. Reviewed terminal operator sequela associated with smoking. Pt declines assistance at this time but may contact the office at anytime for further help as they desire. Assessment & Plan (01/30/2019 1:03 PM CDT): Encouraged smoking cessation. Discussed approx 3 minutes. Gastroesophageal reflux disease without esophagi tis 12/04/2018 Assessment & Plan (06/11/2024 12:15 PM CREDENTIALING MANAGER): Continue PPI Assessment & Plan (03/18/2024 8:05 PM CDT): Patient has been following closely with Dr. Guerin GI. She transferred and saw Dr. Nath and had an EGD done. States at this point her symptoms are pretty stable so will just continue to monitor continuing the Bentyl as needed and continue PPI p.r.n. Assessment & Plan (05/21/2023 3:44 PM CREDENTIALING MANAGER): Continue PPI p.r.n.. Continue per GI Assessment & Plan (07/22/2022 1:47 PM CREDENTIALING MANAGER): Continue per Dr. Guerin. She is currentl on omeprazole sucralfate. Will await his recommendations Assessment & Plan (08/23/2021 9:42 PM CREDENTIALING MANAGER): Continue PPI. She is unsure if the Dexilant will continue to be covered by her insurance so she will contact us with the letter she has at home with her options. Assessment & Plan (04/08/2021 2:55 PM CDT): Increased reflux symptoms. She is currently on Dexilant. Encouraged to continue with the same regimen. Will refer her to GI Dr. Zamora at [place] she is due for colonoscopy and may [...] 12/04/2018 Assessment & Plan (06/11/2024 12:15 PM CREDENTIALING MANAGER): Supplement Assessment & Plan (03/18/2024 8:06 PM CDT): Supplement Assessment & Plan (09/07/2023 10:30 PM CREDENTIALING MANAGER): Supplement Assessment & Plan (05/21/2023 3:44 PM CREDENTIALING MANAGER): Supplement Assessment & Plan (07/22/2022 1:47 PM CREDENTIALING MANAGER): Supplement Assessment & Plan (09/26/2020 8:14 PM CDT): supplement Assessment & Plan (09/11/2019 9:18 AM CDT): supplement Assessment & Plan (01/30/2019 1:02 PM CDT): supplement COPD (chronic obstructive pulmonary disease) 09/2018 Assessment & Plan (08/26/2024 4:37 PM CREDENTIALING MANAGER): COPD symptoms have been stable. Continue Breo and albuterol p.r.n. Assessment & Plan (08/13/2024 1:18 PM CREDENTIALING MANAGER): Continue with albuterol and Breo as breathing is stable Assessment & Plan (06/11/2024 12:15 PM CREDENTIALING MANAGER): Encouraged complete smoking cessation. Continue Breo and albuterol as needed Assessment & Plan (03/18/2024 8:06 PM CDT): Encouraged complete smoking cessation. Continue albuterol nebs and Breo as needed. Assessment & Plan (09/07/2023 10:30 PM CREDENTIALING MANAGER): Patient with COPD. Continue with albuterol and Breo. Assessment & Plan (05/21/2023 3:44 PM CREDENTIALING MANAGER): Continue Symbicort and albuterol p.r.n. continue Flonase Assessment & Plan (07/22/2022 1:47 PM CREDENTIALING MANAGER): Stressed smoking cessation. Continue Symbicort albuterol inhaler nebulizer p.r.n. Assessment & Plan (07/27/2021 7:15 AM CREDENTIALING MANAGER): Continues Symbicort/prn albuterol Still requires Neb Albuterol [...] basis as instructed. New prescription sent to [facility]. [id number] completed today Assessment & Plan (09/26/2020 8:14 PM CDT): Continue Symbicort and Albuterol prn Assessment & Plan (03/15/2020 11:10 AM CDT): Continue current regimen. Stop smoking Assessment & Plan (09/11/2019 9:18 AM CDT): STOP smoking. Continue with current regimen inhalers Albuterol/Symbicort Assessment & Plan (01/30/2019 12:54 PM CDT): Continue with Symbicort SHERRY (obstructive sleep apnea) 12/02/2018 Assessment & Plan (08/26/2024 4:36 PM CREDENTIALING MANAGER): Patient has been diagnosed with SHERRY. Awaiting titration study for treatment plan. Continue per Dr. Manuel Assessment & Plan (06/11/2024 11:43 AM CREDENTIALING MANAGER): Patient has established with Dr. Manuel. She had her sleep study test that did confirm sleep apnea. Awaiting the titration study Assessment & Plan (03/18/2024 8:03 PM CDT): Patient was diagnosed with sleep apnea at [facility] with Dr. Joseph. She would not wear the mask so sent the machine back. Has been untreated for many years. Continues to snore and have daytime sleepiness. Strongly encouraged re- evaluation. Willing to see Dr. Manuel at [facility]. Referral placed Assessment & Plan (09/07/2023 10:30 PM CREDENTIALING MANAGER): Continue with CPAP Assessment & Plan (07/22/2022 1:36 PM CREDENTIALING MANAGER): Continue CPAP Assessment & Plan (04/08/2021 2:56 [...] 12/02/2018 Assessment & Plan (08/13/2024 1:17 PM CREDENTIALING MANAGER): Continue to follow with Shakira in [place] Dr. Etienne's office. She stopped her clonazepam [...] acutely. Assessment & Plan (06/11/2024 11:43 AM CREDENTIALING MANAGER): Continue per psychiatrist. She continues to take out her medications and they are updated on her chart Assessment & Plan (03/18/2024 8:04 PM CDT): Continue following with her psychiatrist for management of her mental health concerns. Assessment & Plan (09/07/2023 10:30 PM CREDENTIALING MANAGER): Continue per Psychiatry. Current medications include Klonopin Ingrezza Lexapro Vraylar 6 mg Lamictal and lithium Assessment & Plan (05/21/2023 3:45 PM CREDENTIALING MANAGER): Continue per psychiatrist Assessment & Plan (07/22/2022 1:45 PM CREDENTIALING MANAGER): Continue per psychiatrist. Patient states she is on clonazepam, latuda, Hydroxyzine, Cymbalta and Lexapro Assessment & Plan (08/23/2021 9:42 PM CREDENTIALING MANAGER): Per psychiatrist Assessment & Plan (04/08/2021 2:58 PM CDT): Continue per Psychiatry Assessment & Plan (06/14/2020 5:56 PM CREDENTIALING MANAGER): Unsure of exact diagnosis. Medication/treatment plan is [...] 08/26/2024 Assessment & Plan (08/13/2024 1:19 PM CREDENTIALING MANAGER): Advised patient it is difficult to know if she has true hypertension versus anxiety/panic. Recommend doing home readings and calling us in a couple of weeks with those readings. If she can not do them at home she can always come in but I know transportation is sometimes difficult. Need for influenza vaccination 06/11/2024 08/26/2024 Assessment & Plan (06/11/2024 12:16 PM CREDENTIALING MANAGER): Flu vaccine updated in the office today Annual physical exam 06/11/2024 025 Assessment & Plan (06/11/2024 12:16 PM CREDENTIALING MANAGER): Encouraged healthy lifestyle, good nutrition and exercise. [...] 03/17/2024 Assessment & Plan (09/07/2023 10:31 PM CREDENTIALING MANAGER): Encouraged healthy lifestyle, good nutrition and exercise. Encouraged Calcium and Vitamin D and weight bearing exercise for bone health. Reviewed immunizations. Reviewed age appropirate screenings. Medicare Wellness Documentation is completed within the chart BMI 38.0-38.9,adult 05/21/2023 09/07/19 24 Assessment & Plan (05/21/2023 3:46 PM CREDENTIALING MANAGER): Discussed the patient's BMI. The BMI is above average. BMI management plan is completed. BMI Follow-up includes: nutrition counseling, exercise counseling and education provided. BMI 39.0-39.9,adult 07/22/2022 05/04/20 23 Assessment & Plan (07/22/2022 1:48 PM CREDENTIALING MANAGER): Discussed the patient's BMI. The BMI is above average. BMI management plan is completed. BMI Follow-up includes: nutrition counseling, exercise counseling and education provided. Need for vaccination 07/22/2022 024 Assessment & Plan (05/21/2023 3:46 PM CREDENTIALING MANAGER): Flu vaccine updated in the office Assessment & Plan (07/22/2022 1:48 PM CREDENTIALING MANAGER): Flu vaccine at the office today Encounter for screening mamm ogram for malignant neoplasm of breast 07/22/2022 09/07/2023 Assessment & Plan (07/22/2022 1:48 PM CREDENTIALING MANAGER): Mammogram order provided Bloody diarrhea 04/08/2021 09/07/2023 [...] 09/07/2023 Assessment & Plan (07/22/2022 1:48 PM CREDENTIALING MANAGER): Encouraged healthy lifestyle, good nutrition and exercise. [...] 2015. Prefers to see a provider at [facility]. She is also having burning in the [...] 01/14/20212022 Assessment & Plan (08/23/2021 9:43 PM CREDENTIALING MANAGER): Obesity is unchanged. Discussed the patient's BMI. [...] 23 Assessment & Plan (07/27/2021 7:21 AM CREDENTIALING MANAGER): Obesity is unchanged. Discussed the patient's BMI. [...] onset of sxs. Check COVID test thru [facility] collection site in [place]. Treat sxs with Tylenol, Cough/cold medication otc [...] water often. If needed, use a hand land commissioner that contains at least 60% alcohol. Clean [...] 04/08/2021 Assessment & Plan (07/22/2020 11:47 AM CREDENTIALING MANAGER): Declines covid 19 testing at this time. Will start on ceftin 500mg bid x 7 days. She was advised to report to office if having otorrhea or worsening of symptoms. Need for immunization against influenza 06/14/2020 02/17/2021 Assessment & Plan (06/14/2020 5:57 PM CREDENTIALING MANAGER): Updated in office today BMI 37.0-37.9, adult 06/10/2020 024 Assessment & Plan (09/07/2023 10:31 PM CREDENTIALING MANAGER): Discussed the patient's BMI. The BMI is above average. BMI management plan is completed. BMI Follow-up includes: nutrition counseling, exercise counseling and education provided. Assessment & Plan (06/10/2020 1:35 PM CREDENTIALING MANAGER): Obesity is unchanged. Discussed the patient's BMI. The BMI is above average. BMI management plan is completed. BMI Follow-up includes: nutrition counseling, exercise counseling and education provided.Obesity is unchanged. Discussed the patient's BMI. Positive depression screening 06/10/2020 08/26/2024 Assessment & Plan (07/22/2020 11:47 AM CREDENTIALING MANAGER): Continue medication same Assessment & Plan (06/14/2020 5:56 PM CREDENTIALING MANAGER): Pt denies any suicidal or homicidal thoughts. [...] 03/17/2024 Assessment & Plan (09/07/2023 10:30 PM CREDENTIALING MANAGER): Probably multifactorial. Check labs and followup to re-evaluate Assessment & Plan (09/11/2019 9:21 AM CDT): Probably multifactorial. Check labs and followup to re-evaluate Hyperglycemia 09/11/2019 03/06/2024 Assessment & Plan (09/07/2023 10:30 PM CREDENTIALING MANAGER): Pre-diabetes/hyperglycemia is a precursor to Dm. Stressed [...] on file Legal Sex Female 4:54 AM CREDENTIALING MANAGER Gender Identity Not on file Sexual Orientation Not on file Occupation Industry Job Start Date Job End Date Disabled Not on file Not on file Not on file Last Filed Vital Signs Vital Sign Reading Time Taken Comments Blood Pressure 164/86 08/15/2024 10:04 AM CREDENTIALING MANAGER Pulse 85 08/15/2024 10:04 AM CREDENTIALING MANAGER Temperature 36.3 C (97.4 F) 08/15/2024 10:04 AM CREDENTIALING MANAGER Respiratory Rate 18 05/18/2024 9:37 AM CREDENTIALING MANAGER Oxygen Saturation 97% 08/15/2024 10:04 AM CREDENTIALING MANAGER Inhaled Oxygen Concentration - - Weight 105 kg (231 lb 6.4 oz) 08/15/2024 10:04 A M CREDENTIALING MANAGER Height 154.9 cm (5' 1 ) 08/15/2024 10:04 AM CREDENTIALING MANAGER Body Mass Index 43.72 08/15/2024 10:04 AM CREDENTIALING MANAGER Plan of Treatment Not on file Procedures Procedure Name Priority Date/Time Associated Diagnosis Comments SCAN - RADIOLOGY/IMAGING 10/03/2024 SCAN - RADIOLOGY/IMAGING 09/27/2024 HARRIETT TITER & PATTERN Routine 08/28/2024 1 :17 PM CREDENTIALING MANAGER HARRIETT QUALITATIVE WITH REFLEX TO HARRIETT QUANTITATIVE Routine 08/28/2024 1:17 PM CREDENTIALING MANAGER Facial rash SCAN - PATHOLOGY 08/24/2024 GI - RESULT 08/24/2024 PSG (COMPLEX) Routine 08/23/2024 7:47 PM CREDENTIALING MANAGER SHERRY (obstructive sleep apnea) ECG 12-LEAD Routine 08/15/2024 10:46 AM CREDENTIALING MANAGER Elevated blood pressure reading SCREENING MAMMOGRAM BILATERAL W ALBERTO Schedule Routine, Read Routine (OP Routine) 08/08/2024 2:15 PM CREDENTIALING MANAGER Breast cancer screening by mammogram ALBUMIN CREATININE RATIO, URINE Routine 06/01/2024 7:12 AM CREDENTIALING MANAGER Type 2 diabetes mellitus with hyperlipidemia (HCC) COMPREHENSIVE METABOLIC PANEL Routine 06/01/2024 7:11 AM CREDENTIALING MANAGER Type 2 diabetes mellitus with hyperlipidemia (HCC) HEMOGLOBIN A1C Routine 06/01/2024 7:11 AM CREDENTIALING MANAGER Type 2 diabetes mellitus with hyperlipidemia (HCC) LIPID PANEL Routine 06/01/2024 7:11 AM CREDENTIALING MANAGER Hyperlipidemia, unspecified hyperlipidemia type HM COLONOSCOPY Routine 05/26/2021 [employer] CONTROLLER PAP (IMAGE GUIDED) LIQUID-BASED PREP Routine 08/03/2017 12:16 PM CREDENTIALING MANAGER from Last 3 Months or Most Recently Relevant to Health Maintenance Results * SCAN - RADIOLOGY/IMAGING (10/03/2024) Anatomical Region Laterality Modality Other us Provider Scanning Final Result * SCAN - RADIOLOGY/IMAGING (09/27/2024) Anatomical Region Laterality Modality Other Inez VELASCO Final Resu lt * (ABNORMAL) HARRIETT ab ql w/rflx to HARRIETT qn (08/28/2024 1:17 PM CREDENTIALING MANAGER) HARRIETT, qual POSITIVE( A) NEGATIVE [facility] Comment: HARRIETT IFA is a first line screen for detecting the presence of up to approximately 150 autoantibodies in various autoimmune diseases. A positive HARRIETT IFA result is suggestive of autoimmune disease and reflexes to titer and pattern. Further laboratory testing may be considered if clinically indicated. For additional information, please refer to http://education.HandMinder.[employer]/faq/XLX193 (This link is being provided for informational/ educational purposes only.) Blood 08/28/2024 1:17 PM CREDENTIALING MANAGER 08/28/2024 1:18 PM CREDENTIALING MANAGER Narrative [facility] - 08/30/2024 1:13 PM CREDENTIALING MANAGER FASTING:YES FASTING: YES Inez VELASCO LAB BLOOD ORDERABLES Final Result Performing Organization Address City/State/[facility] [[email or web address]] Co de Phone Number [facility] [facility] [address] [place] [address] * (ABNORMAL) Antinuclear Antibodies Titer and Pattern (08/28/2024 1:17 PM CREDENTIALING MANAGER) HARRIETT, quant 1:80(H) titer [facility] [...] AC-1: Homogeneous International Consensus on HARRIETT Patterns (https://doi.org/10.1515/wirk-7218-2437) 08/28/2024 1:17 PM CREDENTIALING MANAGER 08/28/2024 1:18 PM CREDENTIALING MANAGER Narrative [facility] - 08/30/2024 1:13 PM CREDENTIALING MANAGER FASTING:YES FASTING: YES Inez VELASCO LAB BLOOD ORDERABLES Final Result Performing Organization Address [facility] de Phone Number [facility] [address] [place] [address] * GI - RESULT (08/24/2024) Anatomical Region Laterality Modality Other us Inez VELASCO Final Resu lt * SCAN - PATHOLOGY (08/24/2024) us Provider Scanning Final Result * PSG-Sleep Provider Use Only (08/23/2024 7:47 PM CREDENTIALING MANAGER) us Jeffy Manuel MD SLEEP CENTER ORDERABLES F inal Result Performing Organization Address [facility] [[email or web address]] Co de Phone Number [facility]EP [facility] [address] [place] [id number] * ECG 12 lead (08/15/2024 10:46 AM CREDENTIALING MANAGER) us Inez VELASCO ECG ORDERABLES Final Resu lt * Screening Mammogram Bilateral W Alberto (08/08/2024 2:15 PM CREDENTIALING MANAGER) Anatomical Region Laterality Modality Breast Bilateral Mammography Impressions 08/08/2024 2:15 PM CREDENTIALING MANAGER 1.No mammographic evidence of malignancy 2.Routine screening recommended for 1 year BI-RADS Category 1 Negative us Inez VELASCO IMG MAMMO PROCEDURES Final Result * Albumin Creatinine Ratio, Urine (06/01/2024 7:12 AM CREDENTIALING MANAGER) Creatinine, ur 42 20 - 275 mg/dL [...] a diagnostic category. Urine 06/01/2024 7:12 AM CREDENTIALING MANAGER 06/01/2024 7:13 AM CREDENTIALING MANAGER us Inez VELASCO LAB URINE ORDERABLES Final Result [facility] [address] [place] [address] * (ABNORMAL) Hemoglobin A1c (06/01/2024 7:11 AM CREDENTIALING MANAGER) Hgb A1C 5.9(H) <5.7 % of total [...] diabetes for children. Blood 06/01/2024 7:11 AM CREDENTIALING MANAGER 06/01/2024 7:11 AM CREDENTIALING MANAGER Narrative [facility] - 06/01/2024 9:56 PM CREDENTIALING MANAGER FASTING:YES FASTING: YES Inez VELASCO LAB BLOOD ORDERABLES Final Result [facility] [address] [place] [address] * (ABNORMAL) Lipid panel (06/01/2024 7:11 AM CREDENTIALING MANAGER) [facility] Cholesterol 142 <200 mg/dL [facility] Manuel HDL 47(L) > OR = 50 mg/dL [facility] shukri Jackson Triglycerides 124 <150 mg/dL [facility] Jackson LDL 74 mg/dL (calc) [facility] Manuel Comment: Reference range: <100 Desirable range <100 mg/dL for primary prevention; <70 mg/dL for patients with CHD or diabetic patients with > or = 2 CHD risk factors. LDL-C is now calculated using the Arley-Marito calculation, which is a validated novel method providing better accuracy than the Friedewald equation in the estimation of LDL-C. Arley COSTA et al. FRANKY. 2013;310(19): 6443-7855 (http://education.HandMinder.On The Spot Systems/faq/LKN764) Chol/HDL ratio 3.0 <5.0 (calc) [facility] Manuel Non-HDL, (LDL+VLDL) 95 <130 mg/dL (calc) [facility] Jackson Comment: For patients with diabetes plus 1 major ASCVD risk factor, treating to a non-HDL-C goal of <100 mg/dL (LDL-C of <70 mg/dL) is considered a therapeutic option. Blood 06/01/2024 7:11 AM CREDENTIALING MANAGER 06/01/2024 7:11 AM CREDENTIALING MANAGER Narrative [facility] - 06/01/2024 9:56 PM CREDENTIALING MANAGER FASTING:YES FASTING: YES Inez VELASCO LAB BLOOD ORDERABLES Final Result [facility] [address] [place] [address] * Comprehensive metabolic panel (06/01/2024 7:11 AM CREDENTIALING MANAGER) Pathologist [facility] Glucose 98 65 - 99 mg/dL [facility] shukri Manuel Comment: Fasting reference interval BUN 11 7 - 25 mg/dL [facility] Creatinine 0.75 0.50 - 1.03 mg/dL [facility] eGFR 95 > OR = 60 mL/min/1.7 3m2 [facility] BUN/creat ratio SEE NOTE: 6 - 22 (calc) [facility] shukri Jackson Comment: Not Reported: BUN and Creatinine are within reference range. Sodium 136 135 - 146 mmol/L [facility] Manuel Potassium, pl 4.3 3.5 - 5.3 mmol/L [facility] Manuel Chloride 102 98 - 110 mmol/L [facility] Manuel CO2 26 20 - 32 mmol/L [facility] Manuel Calcium 9.5 8.6 - 10.4 mg/dL [facility] Manuel Protein, sr 6.8 6.1 - 8.1 g/dL [facility] Manuel Albumin 4.6 3.6 - 5.1 g/dL [facility] Manuel GLOBULIN 2.2 1.9 - 3.7 g/dL (calc) [facility] Manuel Alb/glob ratio 2.1 1.0 - 2.5 (calc) [facility] Manuel Bilirubin, total 0.6 0.2 - 1.2 mg/dL [facility] Manuel Alk phos 69 37 - 153 U/L [facility] Manuel AST 24 10 - 35 U/L [facility] Manuel ALT (SGPT) 21 6 - 29 U/L [facility] Jackson Blood 06/01/2024 7:11 AM CREDENTIALING MANAGER 06/01/2024 7:11 AM CREDENTIALING MANAGER Narrative [facility] - 06/01/2024 9:56 PM CREDENTIALING MANAGER FASTING:YES FASTING: YES Inez VELASCO LAB BLOOD ORDERABLES Final Result Performing Organization Address City/[facility] [[email or web address]] Co de Phone Number [facility] [place] [address] [place] [address] * (ABNORMAL) COLONOSCOPY (05/26/2021) Historical Provider [facility] MAINTENANCE Edited Result - Final * ThinPrep Gynecologic Pap Test (Image-guided), Liquid-based Preparation (08/03/2017 12:16 PM CREDENTIALING MANAGER) CLINICAL INFORMATION [facility] HISTORICAL RESULTS Comment:Information not prov ided LMP: 07/19 [facility] HISTORICAL RESULTS PREV. PAP: [facility] HISTORICAL RESULTS Comment:MANY YEARS AGO PREV. BX: [facility] HISTORICAL RESULTS Comment:INFORMATION NOT PROV IDED SOURCE: [facility] HISTORICAL RESULTS Comment:Cervix, Endocervix STATEMENT OF ADEQUACY: [facility] HISTORICAL RESULTS Comment: Satisfactory for evaluation. Endocervical/transformation zone component present. INTERPRETATION/RESU LT: [facility] HISTORICAL RESULTS Comment:Negative for intraep ithelial lesion or malignancy. COMMENT: [facility] HISTORICAL RESULTS Comment: This Pap test has been evaluated with computer assisted technology. PASSENGER TIRE BUILDER: [facility] HISTORICAL RESULTS Comment: YQ, CT(ASCP) CT screening location: [place] [address] [place] [address] 08/03/2017 12:1 6 PM CREDENTIALING MANAGER 08/09/2017 8:55 PM CREDENTIALING MANAGER Narrative [facility] HISTORICAL RESULTS - 08/09/2017 8:41 PM CREDENTIALING MANAGER 0 PERFORMING LAB: [facility] Therapy[place] [address] [place] [address] Mahi Mcmahon MD Historical Provider LAB PATHOLOGY ORDERABLES Final Result [facility] HISTORICAL RESULTS from Last 3 Months or Most Recently Relevant to Health Maintenance Insurance [facility]WV [facility] MEDICARE ADVANTAGE [employer] [facility] MEDICARE ADVANTAGE [facility] MEDICARE ADVANTAGE Advance Directives For more information, please contact: [phone] * Full Code (Latest Code Status on File) Date Activated Date Inactivated Comments 05/29/2022 12:59 PM 05/30/2022 2:26 PM * Full Code Date Activated Date Inactivated Comments 05/28/2022 7:20 PM 05/29/2022 12:59 PM Care Teams Landscape Nurseryman Relationship Specialty Start Date End Date Inez New PA [address] [place] [address] PCP - General 09/14/17 Candido Guerin MD [address] [place] [address] Consulting Physician Gastroenterology 05/04/23 Anthony Diez MD [address] [place] [address] Consulting Physician Rheumatology 09/18/24
--- OUTSIDE RECORDS SUMMARY | 2024-10-29 14:23 | XMS_ITS | Encounter Summary ---
Author Organization [facility] Facility Care Team Providers Care Associate Professor Of Library Media Name Role Phone Inez New Primary Care Provider [phone] Candido Guerin MD Unavailable [phone] Anthony Diez MD Unavailable [phone] Encounter Details Date Type Department Care Team (Latest Contact Info) Description 10/01/2016 Orders Only [facility] CLINCONV ProviderVishal MD [address] [place], [place] [id number] Social History Tobacco Use Types Packs/Day Years Used Date Smoking Tobacco: Never Assessed Comments Unknown Sex and Gender Information Value Date Recorded Sex Assigned at Not on file Legal Sex Female 4:54 AM CUFF FOLDER Gender Identity Not on file Sexual Orientation [...] documented as of this encounter Care Teams Associate Professor Of Library Media Relationship Specialty Start Date End Date Inez New PA [address] [place] [address] PCP - General 09/14/17 Candido Guerin MD [address] [place] [address] Consulting Physician Gastroenterology 05/04/23 Anthony Diez MD [address] [place] [address] Consulting Physician Rheumatology 09/18/24 documented as of this encounter
--- OUTSIDE RECORDS SUMMARY | 2024-10-29 14:23 | XMS_ITS | Encounter Summary ---
Author Organization [facility] Healthcare Address [address] [place] [address] Care Team Providers Care Program Advisor Name Role Phone Inez New Primary Care Provider [phone] Candido Guerin MD Unavailable [phone] Anthony Diez MD Unavailable [phone] Encounter Details Date Type Department Care Team (Late st Contact Info) Description 11/29/2023 Orders Only [facility] Health Information Management [address] [place] [id number] Scanning, Provider Social History Tobacco Use Types [...] on file Legal Sex Female 4:54 AM SECURITY SOFTWARE ENGINEER Gender Identity Not on file Sexual [...] on filedocumented in this encounter Care Teams Program Advisor Relationship Specialty Start Date End Date Inez New PA [address] [place] [address] PCP - General 09/14/17 Candido Guerin MD [address] [place] [address] Consulting Physician Gastroenterology 05/04/23 Anthony Diez MD [address] [place] [address] Consulting Physician Rheumatology 09/18/24 documented as of this encounter
--- OUTSIDE RECORDS SUMMARY | 2024-10-29 14:23 | XMS_ITS | Clinical Summary ---
Author Organization [facility] [address] [facility] Address [address] [place] [address] Care Team Providers Care Jig Borer Name Role Phone Inez New Primary Care Provider [phone] Candido Guerin MD Unavailable [phone] Anthony Diez MD Unavailable [phone] Allergies No known active allergies Medications magnesium [...] 08/26/2024 Assessment & Plan (08/26/2024 4:47 PM COOK FRUIT): This is a significant, separately identifiable problem [...] 08/26/2024 Assessment & Plan (08/26/2024 4:46 PM COOK FRUIT): Encouraged healthy lifestyle, good nutrition and exercise. Encouraged Calcium and Vitamin D and weight bearing exercise for bone health. Reviewed immunizations Reviewed age appropirate screenings. Hypertension associated with diabetes 08/15/2024 Assessment & Plan (08/26/2024 4:38 PM COOK FRUIT): Blood pressure still isn't perfectly controlled. Continue with the lisinopril 20. She has not been taking the propranolol so will switch to Bystolic 5 for a q.d. dosing and see how she does. Call in a week with readings. BMI 40.0-44.9, adult 06/11/2024 Assessment & Plan (08/15/2024 10:04 AM COOK FRUIT): Discussed the patient's BMI. The BMI is above average. BMI management plan is completed. BMI Follow-up includes: nutrition counseling, exercise counseling and education provided. Assessment & Plan (08/01/2024 11:21 AM COOK FRUIT): Discussed the patient's BMI. The BMI is above average. BMI management plan is completed. BMI Follow-up includes: nutrition counseling, exercise counseling and education provided. Assessment & Plan (06/11/2024 12:16 PM COOK FRUIT): Discussed the patient's BMI. The BMI is above average. BMI management plan is completed. BMI Follow-up includes: nutrition counseling, exercise counseling and education provided. Elevated TSH 03/17/2024 Assessment & Plan (03/18/2024 8:08 PM CDT): Check labs Abnormal thyroid screen (blood) 03/17/2024 Type 2 diabetes mellitus wit hout complication, without long-term current use of insulin 03/17/2024 Assessment & Plan (08/26/2024 4:37 PM COOK FRUIT): Stressed importance of continued A1c control to minimize the watcher automat long goods effects of diabetes. Bring accuchecks to office when instructed to do so. Check A1c about every 3-6 months. Take medication as prescribed. Get annual eye exam. Encouraged GLENDY/Statin if able to tolerate. Encouraged weight control and encouraged diabetic diet and exercise. Continue with metformin 500 el A1c is tightly controlled at 5.8 Assessment & Plan (08/13/2024 1:18 PM COOK FRUIT): Stressed importance of continued A1c control to minimize the [facility] effects of diabetes. Bring accuchecks to office when instructed to do so. Check A1c about every 3-6 months. Take medication as prescribed. Get annual eye exam. Encouraged GLENDY/Statin if able to tolerate. Encouraged weight control and encouraged diabetic diet and exercise. A1c is nicely controlled at 5.9. Continue metformin 500 mg Assessment & Plan (06/11/2024 12:15 PM COOK FRUIT): Stressed importance of continued A1c control to minimize the [facility] effects of diabetes. Bring accuchecks to office [...] Discussed with patient at length diabetes, pathogenesis, watcher automat long goods sequela, end organ damage, diet/exercise/weight loss, and [...] feet on a regular basis to avoid [facility] problems. 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 Start metformin 500 mg 1 tablet daily [...] referral Assessment & Plan (09/07/2023 10:34 PM COOK FRUIT): Ears are clear. Suspect eustachian tube dysfunction. Recommend Flonase, mucinex and antihistamine. If symptoms persist, may need ENT referral. Morbid obesity 07/22/2022 Assessment & Plan (08/26/2024 4:37 PM COOK FRUIT): Discussed the patient's BMI. The BMI is above average. BMI management plan is completed. BMI Follow-up includes: nutrition counseling, exercise counseling and education provided. Assessment & Plan (08/01/2024 11:22 AM COOK FRUIT): Discussed the patient's BMI. The BMI is above average. BMI management plan is completed. BMI Follow-up includes: nutrition counseling, exercise counseling and education provided. Assessment & Plan (06/11/2024 12:15 PM COOK FRUIT): Discussed the patient's BMI. The BMI is above average. BMI management plan is completed. BMI Follow-up includes: nutrition counseling, exercise counseling and education provided. Assessment & Plan (03/18/2024 8:06 PM CDT): Discussed the patient's BMI. The BMI is above average. BMI management plan is completed. BMI Follow-up includes: nutrition counseling, exercise counseling and education provided. Assessment & Plan (09/07/2023 10:31 PM COOK FRUIT): Discussed the patient's BMI. The BMI is above average. BMI management plan is completed. BMI Follow-up includes: nutrition counseling, exercise counseling and education provided. Patient has an obesity-related condition (not limited to: hypertension, obstructive sleep apnea, osteoarthritis, hyperlipidemia, diabetes, etc.). Therefore, morbid obesity may be documented for patients with a BMI between 35.00-39.99. Assessment & Plan (05/21/2023 3:46 PM COOK FRUIT): Discussed the patient's BMI. The BMI is above average. BMI management plan is completed. BMI Follow-up includes: nutrition counseling, exercise counseling and education provided. Patient has an obesity-related condition (not limited to: hypertension, obstructive sleep apnea, osteoarthritis, hyperlipidemia, diabetes, etc.). Therefore, morbid obesity may be documented for patients with a BMI between 35.00-39.99. Assessment & Plan (07/22/2022 2:01 PM COOK FRUIT): Discussed the patient's BMI. The BMI is above average. BMI management plan is completed. BMI Follow-up includes: nutrition counseling, exercise counseling and education provided. Patient has an obesity-related condition (not limited to: hypertension, obstructive sleep apnea, osteoarthritis, hyperlipidemia, diabetes, etc.). Therefore, morbid obesity may be documented for patients with a BMI between 35.00-39.99. Symptomatic anemia 05/28/2022 Assessment & Plan (09/07/2023 10:29 PM COOK FRUIT): Known anemia. Has had transfusion. Continue to [...] Guajardo Assessment & Plan (06/14/2020 5:55 PM COOK FRUIT): Refer back to Ortho. Offered PT. She [...] 09/11/2019 Assessment & Plan (06/11/2024 12:15 PM COOK FRUIT): Mammogram order provided Assessment & Plan (08/23/2021 9:43 PM COOK FRUIT): Mammogram order provided Assessment & Plan (09/26/2020 8:30 PM CDT): Mammogram order provided Assessment & Plan (09/11/2019 9:21 AM CDT): Mammogram order provided Sciatica of right side 06/17/2019 Assessment & Plan (06/17/2019 6:14 PM COOK FRUIT): Voltaren gel Exercise/Start PT Followup if sxs worsen or don't improved. Vertigo 02/28/2019 Assessment & Plan (03/18/2024 8:06 PM CDT): Uses meclizine p.r.n. with good results Assessment & Plan (09/26/2020 8:29 PM CDT): antivert prn Assessment & Plan (03/15/2020 11:09 AM CDT): Persitent vertigo. 02/2020 CT head was essentially negative. She has finally agreed to vestibular therapy. Will still change neurology referral from [place] to [place] as patient able to arranage transportation easier. [...] 09/2018 Assessment & Plan (08/26/2024 4:36 PM COOK FRUIT): Encouraged patient to follow low fat/low chol diet like the Mediterranean diet. Increase good fats in the diet. Increase exercise. Monitor labs as needed. Continue Crestor Assessment & Plan (08/13/2024 1:17 PM COOK FRUIT): Encouraged patient to follow low fat/low chol diet like the Mediterranean diet. Increase good fats in the diet. Increase exercise. Monitor labs as needed. Continue Crestor Assessment & Plan (06/11/2024 11:51 AM COOK FRUIT): Stressed importance of continued A1c control to minimize the watcher [employer] goods effects of diabetes. Bring accuchecks to office [...] of continued A1c control to minimize the [facility] effects of diabetes. Bring accuchecks to office [...] Crestor Assessment & Plan (09/07/2023 10:30 PM COOK FRUIT): Encouraged patient to follow low fat/low chol diet like the Mediterranean diet. Increase good fats in the diet. Increase exercise. Monitor labs as needed. Continue with Crestor Assessment & Plan (05/21/2023 3:44 PM COOK FRUIT): Encouraged patient to follow low fat/low chol diet like the Mediterranean diet. Increase good fats in the diet. Increase exercise. Monitor labs as needed. Continue Crestor Assessment & Plan (07/22/2022 1:49 PM COOK FRUIT): Encouraged patient to follow low fat/low chol diet like the Mediterranean diet. Increase good fats in the diet. Increase exercise. Monitor labs as needed. Continue Crestor Assessment & Plan (08/23/2021 9:42 PM COOK FRUIT): Encouraged patient to follow fat/low chol diet [...] 12/04/2018 Assessment & Plan (06/11/2024 12:15 PM COOK FRUIT): Encouraged smoking cessation. Discussed 3 minutes. Reviewed options for assistance with cessation. Reviewed watcher automat long goods sequela associated with smoking. Pt declines assistance at this time but may contact the office at anytime for further help as they desire. Assessment & Plan (03/18/2024 8:05 PM CDT): Encouraged smoking cessation. Discussed 3 minutes. Reviewed options for assistance with cessation. Reviewed watcher [employer] goods sequela associated with smoking. Pt declines assistance at this time but may contact the office at anytime for further help as they desire. Declines low-dose CT at this point Assessment & Plan (09/07/2023 10:30 PM COOK FRUIT): Encouraged smoking cessation. Discussed 3 minutes. Reviewed options for assistance with cessation. Reviewed [facility] sequela associated with smoking. Pt declines assistance at this time but may contact the office at anytime for further help as they desire. Assessment & Plan (07/22/2022 1:47 PM COOK FRUIT): Encouraged smoking cessation. Discussed 3 minutes. Reviewed options for assistance with cessation. Reviewed watcher [employer] goods sequela associated with smoking. Pt declines assistance at this time but may contact the office at anytime for further help as they desire. Assessment & Plan (08/23/2021 9:42 PM COOK FRUIT): Encouraged smoking cessation. Discussed 3 minutes. Reviewed options for assistance with cessation. Reviewed watcher [employer] goods sequela associated with smoking. Pt declines assistance at this time but may contact the office at anytime for further help as they desire. Assessment & Plan (04/08/2021 2:56 PM CDT): Encouraged smoking cessation. Discussed 3 minutes. Reviewed options for assistance with cessation. Reviewed [facility] sequela associated with smoking. Pt declines assistance at this time but may contact the office at anytime for further help as they desire. Assessment & Plan (01/18/2021 11:39 PM CDT): Encouraged smoking cessation. Discussed 3 minutes. Reviewed options for assistance with cessation. Reviewed [facility] sequela associated with smoking. Pt declines assistance at this time but may contact the office at anytime for further help as they desire. Assessment & Plan (09/26/2020 8:30 PM CDT): Encouraged smoking cessation. Discussed 3 minutes. Reviewed options for assistance with cessation. Reviewed [facility] sequela associated with smoking. Pt declines assistance at this time but may contact the office at anytime for further help as they desire. Assessment & Plan (06/14/2020 5:55 PM COOK FRUIT): Encouraged smoking cessation. Discussed 3 minutes. Reviewed options for assistance with cessation. Reviewed [facility] sequela associated with smoking. Pt declines assistance at this time but may contact the office at anytime for further help as they desire. Assessment & Plan (03/15/2020 11:10 AM CDT): Encouraged smoking cessation. Discussed 3 minutes. Reviewed options for assistance with cessation. Reviewed watcher [employer] long goods sequela associated with smoking. Pt declines assistance [...] Reviewed options for assistance with cessation. Reviewed watcher automat long goods sequela associated with smoking. Pt declines assistance at this time but may contact the office at anytime for further help as they desire. Assessment & Plan (06/17/2019 6:16 PM COOK FRUIT): Encouraged smoking cessation. Discussed 3 minutes. Reviewed options for assistance with cessation. Reviewed [facility] sequela associated with smoking. Pt declines assistance at this time but may contact the office at anytime for further help as they desire. Assessment & Plan (01/30/2019 1:03 PM CDT): Encouraged smoking cessation. Discussed approx 3 minutes. Gastroesophageal reflux disease without esophagi tis 12/04/2018 Assessment & Plan (06/11/2024 12:15 PM COOK FRUIT): Continue PPI Assessment & Plan (03/18/2024 8:05 PM CDT): Patient has been following closely with Dr. Guerin GI. She transferred and saw Dr. Nath and had an EGD done. States at this point her symptoms are pretty stable so will just continue to monitor continuing the Bentyl as needed and continue PPI p.r.n. Assessment & Plan (05/21/2023 3:44 PM COOK FRUIT): Continue PPI p.r.n.. Continue per GI Assessment & Plan (07/22/2022 1:47 PM COOK FRUIT): Continue per Dr. Guerin. She is currentl on omeprazole sucralfate. Will await his recommendations Assessment & Plan (08/23/2021 9:42 PM COOK FRUIT): Continue PPI. She is unsure if the Dexilant will continue to be covered by her insurance so she will contact us with the letter she has at home with her options. Assessment & Plan (04/08/2021 2:55 PM CDT): Increased reflux symptoms. She is currently on Dexilant. Encouraged to continue with the same regimen. Will refer her to GI Dr. Zamora at [facility] she is due for colonoscopy and may [...] 12/04/2018 Assessment & Plan (06/11/2024 12:15 PM COOK FRUIT): Supplement Assessment & Plan (03/18/2024 8:06 PM CDT): Supplement Assessment & Plan (09/07/2023 10:30 PM COOK FRUIT): Supplement Assessment & Plan (05/21/2023 3:44 PM COOK FRUIT): Supplement Assessment & Plan (07/22/2022 1:47 PM COOK FRUIT): Supplement Assessment & Plan (09/26/2020 8:14 PM CDT): supplement Assessment & Plan (09/11/2019 9:18 AM CDT): supplement Assessment & Plan (01/30/2019 1:02 PM CDT): supplement COPD (chronic obstructive pulmonary disease) 09/2018 Assessment & Plan (08/26/2024 4:37 PM COOK FRUIT): COPD symptoms have been stable. Continue Breo and albuterol p.r.n. Assessment & Plan (08/13/2024 1:18 PM COOK FRUIT): Continue with albuterol and Breo as breathing is stable Assessment & Plan (06/11/2024 12:15 PM COOK FRUIT): Encouraged complete smoking cessation. Continue Breo and albuterol as needed Assessment & Plan (03/18/2024 8:06 PM CDT): Encouraged complete smoking cessation. Continue albuterol nebs and Breo as needed. Assessment & Plan (09/07/2023 10:30 PM COOK FRUIT): Patient with COPD. Continue with albuterol and Breo. Assessment & Plan (05/21/2023 3:44 PM COOK FRUIT): Continue Symbicort and albuterol p.r.n. continue Flonase Assessment & Plan (07/22/2022 1:47 PM COOK FRUIT): Stressed smoking cessation. Continue Symbicort albuterol inhaler nebulizer p.r.n. Assessment & Plan (07/27/2021 7:15 AM COOK FRUIT): Continues Symbicort/prn albuterol Still requires Neb Albuterol [...] basis as instructed. New prescription sent to [facility]. [id number] completed today Assessment & Plan (09/26/2020 8:14 PM CDT): Continue Symbicort and Albuterol prn Assessment & Plan (03/15/2020 11:10 AM CDT): Continue current regimen. Stop smoking Assessment & Plan (09/11/2019 9:18 AM CDT): STOP smoking. Continue with current regimen inhalers Albuterol/Symbicort Assessment & Plan (01/30/2019 12:54 PM CDT): Continue with Symbicort SHERRY (obstructive sleep apnea) 12/02/2018 Assessment & Plan (08/26/2024 4:36 PM COOK FRUIT): Patient has been diagnosed with SHERRY. Awaiting titration study for treatment plan. Continue per Dr. Manuel Assessment & Plan (06/11/2024 11:43 AM COOK FRUIT): Patient has established with Dr. Manuel. She had her sleep study test that did confirm sleep apnea. Awaiting the titration study Assessment & Plan (03/18/2024 8:03 PM CDT): Patient was diagnosed with sleep apnea at [facility] with Dr. Joseph. She would not wear the mask so sent the machine back. Has been untreated for many years. Continues to snore and have daytime sleepiness. Strongly encouraged re- evaluation. Willing to see Dr. Manuel at [facility]. Referral placed Assessment & Plan (09/07/2023 10:30 PM COOK FRUIT): Continue with CPAP Assessment & Plan (07/22/2022 1:36 PM COOK FRUIT): Continue CPAP Assessment & Plan (04/08/2021 2:56 [...] 12/02/2018 Assessment & Plan (08/13/2024 1:17 PM COOK FRUIT): Continue to follow with Shakira in [facility] Dr. Etienne's office. She stopped her clonazepam [...] acutely. Assessment & Plan (06/11/2024 11:43 AM COOK FRUIT): Continue per psychiatrist. She continues to take out her medications and they are updated on her chart Assessment & Plan (03/18/2024 8:04 PM CDT): Continue following with her psychiatrist for management of her mental health concerns. Assessment & Plan (09/07/2023 10:30 PM COOK FRUIT): Continue per Psychiatry. Current medications include Klonopin Ingrezza Lexapro Vraylar 6 mg Lamictal and lithium Assessment & Plan (05/21/2023 3:45 PM COOK FRUIT): Continue per psychiatrist Assessment & Plan (07/22/2022 1:45 PM COOK FRUIT): Continue per psychiatrist. Patient states she is on clonazepam, latuda, Hydroxyzine, Cymbalta and Lexapro Assessment & Plan (08/23/2021 9:42 PM COOK FRUIT): Per psychiatrist Assessment & Plan (04/08/2021 2:58 PM CDT): Continue per Psychiatry Assessment & Plan (06/14/2020 5:56 PM COOK FRUIT): Unsure of exact diagnosis. Medication/treatment plan is [...] 08/26/2024 Assessment & Plan (08/13/2024 1:19 PM COOK FRUIT): Advised patient it is difficult to know if she has true hypertension versus anxiety/panic. Recommend doing home readings and calling us in a couple of weeks with those readings. If she can not do them at home she can always come in but I know transportation is sometimes difficult. Need for influenza vaccination 06/11/2024 08/26/2024 Assessment & Plan (06/11/2024 12:16 PM COOK FRUIT): Flu vaccine updated in the office today Annual physical exam 06/11/2024 025 Assessment & Plan (06/11/2024 12:16 PM COOK FRUIT): Encouraged healthy lifestyle, good nutrition and exercise. [...] 03/17/2024 Assessment & Plan (09/07/2023 10:31 PM COOK FRUIT): Encouraged healthy lifestyle, good nutrition and exercise. Encouraged Calcium and Vitamin D and weight bearing exercise for bone health. Reviewed immunizations. Reviewed age appropirate screenings. Medicare Wellness Documentation is completed within the chart BMI 38.0-38.9,adult 05/21/2023 09/07/19 24 Assessment & Plan (05/21/2023 3:46 PM COOK FRUIT): Discussed the patient's BMI. The BMI is above average. BMI management plan is completed. BMI Follow-up includes: nutrition counseling, exercise counseling and education provided. BMI 39.0-39.9,adult 07/22/2022 05/04/20 23 Assessment & Plan (07/22/2022 1:48 PM COOK FRUIT): Discussed the patient's BMI. The BMI is above average. BMI management plan is completed. BMI Follow-up includes: nutrition counseling, exercise counseling and education provided. Need for vaccination 07/22/2022 024 Assessment & Plan (05/21/2023 3:46 PM COOK FRUIT): Flu vaccine updated in the office Assessment & Plan (07/22/2022 1:48 PM COOK FRUIT): Flu vaccine at the office today Encounter for screening mamm ogram for malignant neoplasm of breast 07/22/2022 09/07/2023 Assessment & Plan (07/22/2022 1:48 PM COOK FRUIT): Mammogram order provided Bloody diarrhea 04/08/2021 09/07/2023 [...] 09/07/2023 Assessment & Plan (07/22/2022 1:48 PM COOK FRUIT): Encouraged healthy lifestyle, good nutrition and exercise. [...] 2016. Prefers to see a provider at [facility]. She is also having burning [...] 01/14/20212022 Assessment & Plan (08/23/2021 9:43 PM COOK FRUIT): Obesity is unchanged. Discussed the patient's BMI. [...] 07/22/19 Assessment & Plan (07/27/2021 7:21 AM COOK FRUIT): Obesity is unchanged. Discussed the patient's BMI. [...] onset of sxs. Check COVID test thru [facility] collection site in [place]. Treat sxs with Tylenol, Cough/cold medication otc [...] water often. If needed, use a hand mortuary operations manager that contains at least 60% alcohol. Clean [...] 04/08/2021 Assessment & Plan (07/22/2020 11:47 AM COOK FRUIT): Declines covid 19 testing at this time. Will start on ceftin 500mg bid x 7 days. She was advised to report to office if having otorrhea or worsening of symptoms. Need for immunization against influenza 06/14/2020 02/17/2021 Assessment & Plan (06/14/2020 5:57 PM COOK FRUIT): Updated in office today BMI 37.0-37.9, adult 06/10/2020 024 Assessment & Plan (09/07/2023 10:31 PM COOK FRUIT): Discussed the patient's BMI. The BMI is above average. BMI management plan is completed. BMI Follow-up includes: nutrition counseling, exercise counseling and education provided. Assessment & Plan (06/10/2020 1:35 PM COOK FRUIT): Obesity is unchanged. Discussed the patient's BMI. The BMI is above average. BMI management plan is completed. BMI Follow-up includes: nutrition counseling, exercise counseling and education provided.Obesity is unchanged. Discussed the patient's BMI. Positive depression screening 06/10/2020 08/26/2024 Assessment & Plan (07/22/2020 11:47 AM COOK FRUIT): Continue medication same Assessment & Plan (06/14/2020 5:56 PM COOK FRUIT): Pt denies any suicidal or homicidal thoughts. [...] 03/17/2024 Assessment & Plan (09/07/2023 10:30 PM COOK FRUIT): Probably multifactorial. Check labs and followup to re-evaluate Assessment & Plan (09/11/2019 9:21 AM CDT): Probably multifactorial. Check labs and followup to re-evaluate Hyperglycemia 09/11/2019 03/06/2024 Assessment & Plan (09/07/2023 10:30 PM COOK FRUIT): Pre-diabetes/hyperglycemia is a precursor to Dm. Stressed [...] Type Department Care Team Description 10/15/2024 Telephone [facility] Family Medicine [address] [address] Sandy Ramirez MA Successful Phone Call ([facility]HER[facility]) 10/03/2024 Orders Only [facility] Information Management [address] [place] [address] Scanning, Provider 10/02/2024 Orders Only [facility] Family Medicine [address] [place] [address] Inez New PA Enlarged liver (Primary Dx); Bile duct abnormality 09/28/2024 Telephone [facility] Medicine [address] [place] [address] Inez New PA 09/27/2024 Orders Only [facility] Health Information Management [address] [place] [address] Inez New PA 09/24/2024 Documentation [facility] Cardiology [address] [place] [address] Tessie Rice MA 09/21/2024 Telephone [facility] Accountable Care Organization [address] [place] [address] Antonella Costa Chart Review ([facility] Med Adherence ) 09/11/2024 Orders Only [facility] Medical [facility] at [place] [address] [place] [address] Inez New PA Need for RSV vaccination (Primary Dx) 09/05/2024 Orders Only [facility] Family Medicine [address] [place] [address] Inez New PA Positive HARRIETT (antinuclear antibody) (Primary Dx) 09/05/2024 Orders Only [facility] Family Medicine [address] [place] [address] Inez New PA Positive HARRIETT (antinuclear antibody) (Primary Dx) 09/04/2024 Results Follow-Up [facility] Family Medicine [address] [place] [address] Inez New PA 08/28/2024 Orders Only [facility] Medicine [facility] [place] [address] [place] Dizziness (Primary Dx); Persistent headaches 08/28/2024 Orders Only [address] [place] [address] [place] Facial rash (Primary Dx) 08/24/2024 Orders Only [facility] Information Management [address] [place] [address] [place] 08/24/2024 Telephone [facility] Sleep Lab [address] [place] [address] Jeffy Manuel MD Cpap titration results / cpap order 08/23/2024 7:47 PM COOK FRUIT - 08/23/2024 11:59 PM C[facility]UIT Hospital Encounter [facility] Sleep Lab [address] [place] [address] SHERRY (obstructive sleep apnea) Discharge Disposition: Discharge to home or self care 08/23/[address] [place] [address] [place] 08/23/[address] [place] [address] [place] Medication Request 08/23/[address] [place] [address] [place] 08/20/[address] [place] [address] [place] 08/15/2024 10:00 AM C[facility] Office Visit [address] [place] [address] [place] Annual physical exam (Primary Dx); Dizziness; Elevated blood pressure reading; Hypertension associated with diabetes (HCC); Type 2 diabetes mellitus without complication, without long-term current use of insulin (HCC); Chronic obstructive pulmonary disease, unspecified COPD type (HCC); Type 2 diabetes mellitus with hyperlipidemia (HCC); SHERRY (obstructive sleep apnea); Morbid obesity (HCC); BMI 40.0-44.9, adult (HCC); Essential (primary) hypertension 08/01/2024 11:00 AM COOK FRUIT Telemedicine [facility] Family Medicine [address] [facility] [address] [place] [address] [place] Type 2 diabetes mellitus [...] on file Legal Sex Female 4:54 AM COOK FRUIT Gender Identity Not on file Sexual Orientation Not on file Occupation Industry Job Start Date Job End Date Disabled Not on file Not on file Not on file Obstetrics History Last Filed Vital Signs Vital Sign Reading Time Taken Comments Blood Pressure 164/86 08/15/2024 10:04 AM COOK FRUIT Pulse 85 08/15/2024 10:04 AM COOK FRUIT Temperature 36.3 C (97.4 F) 08/15/2024 10:04 AM COOK FRUIT Respiratory Rate 18 05/18/2024 9:37 AM COOK FRUIT Oxygen Saturation 97% 08/15/2024 10:04 AM COOK FRUIT Inhaled Oxygen Concentration - - Weight 105 kg (231 lb 6.4 oz) 08/15/2024 10:04 A M COOK FRUIT Height 154.9 cm (5' 1 ) 08/15/2024 10:04 AM COOK FRUIT Body Mass Index 43.72 08/15/2024 10:04 AM COOK FRUIT Plan of Treatment Health Maintenance Due Date [...] & PATTERN Routine 08/28/2024 1 :17 PM COOK FRUIT HARRIETT QUALITATIVE WITH REFLEX TO HARRIETT QUANTITATIVE Routine 08/28/2024 1:17 PM COOK FRUIT Facial rash SCAN - PATHOLOGY 08/24/2024 GI - RESULT 08/24/2024 PSG (COMPLEX) Routine 08/23/2024 7:47 PM COOK FRUIT SHERRY (obstructive sleep apnea) ECG 12-LEAD Routine 08/15/2024 10:46 AM COOK FRUIT Elevated blood pressure reading SCREENING MAMMOGRAM BILATERAL W ALBERTO Schedule Routine, Read Routine (OP Routine) 08/08/2024 2:15 PM COOK FRUIT Breast cancer screening by mammogram ALBUMIN CREATININE RATIO, URINE Routine 06/01/2024 7:12 AM COOK FRUIT Type 2 diabetes mellitus with hyperlipidemia (HCC) COMPREHENSIVE METABOLIC PANEL Routine 06/01/2024 7:11 AM COOK FRUIT Type 2 diabetes mellitus with hyperlipidemia (HCC) HEMOGLOBIN A1C Routine 06/01/2024 7:11 AM COOK FRUIT Type 2 diabetes mellitus with hyperlipidemia (HCC) LIPID PANEL Routine 06/01/2024 7:11 AM COOK FRUIT Hyperlipidemia, unspecified hyperlipidemia type HM COLONOSCOPY Routine 05/26/2021 THINPREP COREMAKER APPRENTICE PAP (IMAGE GUIDED) LIQUID-BASED PREP Routine 08/03/2017 12:16 PM COOK FRUIT from Last 3 Months or Most Recently Relevant to Health Maintenance Results * SCAN - RADIOLOGY/IMAGING (10/03/2024) Anatomical Region Laterality Modality Other Provider Scanning Final Result * SCAN - RADIOLOGY/IMAGING (09/27/2024) Anatomical Region Laterality Modality Other Inez VELASCO Final Resu lt * (ABNORMAL) HARRIETT ab ql w/rflx to HARRIETT qn (08/28/2024 1:17 PM COOK FRUIT) HARRIETT, qual POSITIVE( A) NEGATIVE [facility] Comment: HARRIETT IFA is a first line screen for detecting the presence of up to approximately 150 autoantibodies in various autoimmune diseases. A positive HARRIETT IFA result is suggestive of autoimmune disease and reflexes to titer and pattern. Further laboratory testing may be considered if clinically indicated. For additional information, please refer to http://education.Scorista.ru/faq/LIX383 (This link is being provided for informational/ educational purposes only.) Blood 08/28/2024 1:17 PM COOK FRUIT 08/28/2024 1:18 PM COOK FRUIT Narrative [facility] - 08/30/2024 1:13 PM COOK FRUIT FASTING:YES FASTING: YES Result [facility] Inez VELASCO LAB BLOOD ORDERABLES Final Result Performing Organization Address [facility] Co de Phone Number [address] [facility] [address] [place] [address] * (ABNORMAL) Antinuclear Antibodies Titer and Pattern (08/28/2024 1:17 PM COOK FRUIT) HARRIETT, quant 1:80(H) titer [facility] Comment: A low level HARRIETT titer may be present in pre-clinical autoimmune diseases and normal individuals. Reference Range <1:40 Negative 1:40-1:80 Low Antibody Level >1:80 Elevated Antibody Level HARRIETT, pattern Nuclear, Homogeneou s(A) [facility] Comment: Homogeneous pattern is associated with systemic lupus erythematosus (SLE), drug-induced lupus and juvenile idiopathic arthritis. AC-1: Homogeneous International Consensus on HARRIETT Patterns (https://doi.org/10.1515/mtpn-8571-0425) 08/28/2024 1:1 7 PM COOK FRUIT 08/28/2024 1:18 PM COOK FRUIT Narrative [facility] - 08/30/2024 1:13 PM COOK FRUIT FASTING:YES FASTING: YES Result [facility] Inez VELASCO LAB BLOOD ORDERABLES Final Result Performing Organization Address [facility] Co de Phone Number [facility] [address] [place] [address] * GI - RESULT (08/24/2024) Anatomical Region Laterality Modality Other Inez VELASCO Final Resu lt * SCAN - PATHOLOGY (08/24/2024) Provider Scanning Final Result * PSG-Sleep Provider Use Only (08/23/2024 7:47 PM COOK FRUIT) us Jeffy Manuel MD SLEEP CENTER ORDERABLES F inal Result [facility]EP [facility] [address] [place] [address] * ECG 12 lead (08/15/2024 10:46 AM COOK FRUIT) us Inez VELASCO ECG ORDERABLES Final Resu lt * Screening Mammogram Bilateral W Alberto (08/08/2024 2:15 PM COOK FRUIT) Anatomical Region Laterality Modality Breast Bilateral Mammography Impressions 08/08/2024 2:15 PM COOK FRUIT 1.No mammographic evidence of malignancy 2.Routine screening recommended for 1 year BI-RADS Category 1 Negative us Inez VELASCO IMG MAMMO PROCEDURES Final Result * Albumin Creatinine Ratio, Urine (06/01/2024 7:12 AM COOK FRUIT) Creatinine, ur 42 20 - 275 mg/dL [...] a diagnostic category. Urine 06/01/2024 7:12 AM COOK FRUIT 06/01/2024 7:13 AM COOK FRUIT us Inez VELASCO LAB URINE ORDERABLES Final Result [facility] [address] [address] [address] * (ABNORMAL) Hemoglobin A1c (06/01/2024 7:11 AM COOK FRUIT) Pathologist [facility] Hgb A1C 5.9(H) <5.7 % of total Hgb [facility] Jackson Comment: For someone without known diabetes, [...] diabetes for children. Blood 06/01/2024 7:11 AM COOK FRUIT 06/01/2024 7:11 AM COOK FRUIT Narrative [facility] - 06/01/2024 9:56 PM COOK FRUIT FASTING:YES FASTING: YES Inez VELASCO LAB BLOOD ORDERABLES Final Result [facility] [address] [place] [address] * (ABNORMAL) Lipid panel (06/01/2024 7:11 AM COOK FRUIT) [facility] Cholesterol 142 <200 mg/dL [facility]erson Jackson HDL 47(L) > OR = 50 mg/dL [facility] Jackson Triglycerides 124 <150 mg/dL Estella [facility] Jackson LDL 74 mg/dL (calc) [facility] Jackson Comment: Reference range: <100 Desirable range <100 mg/dL for primary prevention; <70 mg/dL for patients with CHD or diabetic patients with > or = 2 CHD risk factors. LDL-C is now calculated using the Crystal calculation, which is a validated novel method providing better accuracy than the Friedewald equation in the estimation of LDL-C. Arley COSTA et al. FRANKY. 2013;310(19): 0165-4606 (http://education.Bizzabo.Stratavia/faq/TSI229) Chol/HDL ratio 3.0 <5.0 (calc) Estella [facility] Jackson Non-HDL, (LDL+VLDL) 95 <130 mg/dL (calc) [facility] watt Manuel Comment: For patients with diabetes plus 1 major ASCVD risk factor, treating to a non-HDL-C goal of <100 mg/dL (LDL-C of <70 mg/dL) is considered a therapeutic option. Blood 06/01/2024 7:11 AM COOK FRUIT 06/01/2024 7:11 AM COOK FRUIT Narrative [facility] - 06/01/2024 9:56 PM COOK FRUIT FASTING:YES FASTING: YES Inez VELASCO LAB BLOOD ORDERABLES Final Result [facility] [address] [place] [address] * Comprehensive metabolic panel (06/01/2024 7:11 AM COOK FRUIT) Pathologist [facility] Glucose 98 65 - 99 mg/dL Estella [facility]erson watt Manuel Comment: Fasting reference interval BUN 11 7 - 25 mg/dL [facility] shukri Manuel Creatinine 0.75 0.50 - 1.03 mg/dL [facility]Emerson watt Manuel eGFR 95 > OR = 60 mL/min/1.7 3m2 [facility] watt Manuel BUN/creat ratio SEE NOTE: (calc) Estella OpenbucksEmerson watt Manuel Comment: Not Reported: BUN and Creatinine are within reference range. Sodium 136 135 - 146 mmol/L [facility] Manuel Potassium, pl 4.3 3.5 - 5.3 mmol/L [facility] Manuel Chloride 102 98 - 110 mmol/L [facility] Manuel CO2 26 20 - 32 mmol/L [facility] Manuel Calcium 9.5 8.6 - 10.4 mg/dL [facility] watt Manuel Protein, sr 6.8 6.1 - 8.1 g/dL [facility] Manuel Albumin 4.6 3.6 - 5.1 g/dL [facility] Manuel GLOBULIN 2.2 1.9 - 3.7 g/dL (calc) Estella ReduxEmerson watt Manuel Alb/glob ratio 2.1 1.0 - 2.5 (calc) [facility] Manuel Bilirubin, total 0.6 0.2 - 1.2 mg/dL [facility] shukri Jackson Alk phos 69 37 - 153 U/L [facility] Jackson AST 24 10 - 35 U/L [facility] shukri Jackson ALT (SGPT) 21 6 - 29 U/L [facility] shukri Jackson Blood 06/01/2024 7:11 AM COOK FRUIT 06/01/2024 7:11 AM COOK FRUIT Narrative [facility] - 06/01/2024 9:56 PM COOK FRUIT FASTING:YES FASTING: YES Inez VELASCO LAB BLOOD ORDERABLES Final Result [facility] [address] [place] [address] * (ABNORMAL) COLONOSCOPY (05/26/2021) Historical Provider HEALTH MAINTENANCE Edited Result - Final * ThinPrep Gynecologic Pap Test (Image-guided), Liquid-based Preparation (08/03/2017 12:16 PM COOK FRUIT) CLINICAL INFORMATION [facility] HISTORICAL RESULTS Comment:Information not prov ided LMP: 07/19 [facility] HISTORICAL RESULTS PREV. PAP: [facility] HISTORICAL RESULTS Comment:MANY YEARS AGO PREV. BX: [facility] HISTORICAL RESULTS Comment:INFORMATION NOT PROV IDED SOURCE: [facility] HISTORICAL RESULTS Comment:Cervix, Endocervix STATEMENT OF ADEQUACY: [facility] HISTORICAL RESULTS Comment: Satisfactory for evaluation. Endocervical/transformation zone component present. INTERPRETATION/RESU LT: [facility] HISTORICAL RESULTS Comment:Negative for intraep ithelial lesion or malignancy. COMMENT: [facility] HISTORICAL RESULTS Comment: This Pap test has been evaluated with computer assisted technology. CHAIR CAR ATTENDANT: [facility] HISTORICAL RESULTS Comment: YQ, CT(ASCP) CT screening location: [place] [address] [address] [place] [address] 08/03/2017 12:1 6 PM COOK FRUIT 08/09/2017 8:55 PM COOK FRUIT Narrative [facility] HISTORICAL RESULTS - 08/09/2017 8:41 PM COOK FRUIT 0 PERFORMING LAB: , [facility] [address] [facility] [address] Mahi Mcmahon MD us Historical Provider LAB PATHOLOGY ORDERABLES Final Result [facility] HISTORICAL RESULTS from Last 3 Months or Most Recently Relevant to Health Maintenance Insurance [facility] MEDICARE AD[place]ANTAGE [place] [address] [address] [facility] MEDIC[facility] ADVANTAGE [facility] MED[facility] ADV[facility]AGE Advance Directives For more information, please contact: [phone] * Full Code (Latest Code Status on File) Date Activated Date Inactivated Comments 05/29/2022 12:59 PM 05/30/2022 2:26 PM * Full Code Date Activated Date Inactivated Comments 05/28/2022 7:20 PM 05/29/2022 12:59 PM Care Teams Jig Borer Relationship Specialty Start Date End Date [place] [address] [address] PCP - General 09/14/17 Candido Guerin MD [facility] [address] [place] [address] Consulting Physician Gastroenterology 05/04/23 Anthony Diez MD [address] [place] [address] Consulting Physician Rheumatology 09/18/24
--- OUTSIDE RECORDS SUMMARY | 2024-10-29 14:23 | XMS_ITS | Clinical Summary ---
Author Organization [facility] Address [address] [place] [address] Care Team Providers Care Training And Development Professional Name Role Phone [facility]ez New Primary Care [...] CDT - 09/28/2024 10:32 AM CDT Emergency [facility] [place] [address] Nyla Greer MD Gelbaltazar, Vandana Cortes MD [...] PM CDT COLONOSCOPY Routine 05/26/2021 5:23 AM [facility]ILLER HAND from Last 3 Months or Most Recently Relevant to Health Maintenance Results * MRI BRAIN WO CON (09/28/2024 9:38 AM CDT) Anatomical Region Laterality Modality Head Magnetic Resonan ce 09/28/2024 9:47 AM CDT Impressions 09/28/2024 9:58 AM CDT IMPRESSION: Normal appearance of the brain. Ordered By: NYLA GREER Interpreted By: Cooper Kraft MD, 09/28/2024 9:47 AM Narrative 09/28/2024 9:58 AM CDT [place] [id number] EXAMINATION: MRI brain without contrast. EXAM DATE/TIME: [...] Procedure Note Cooper Kraft MD - 09/28/[address] [address] EXAMINATION: MRI brain without contrast. EXAM DATE/TIME: [...] 1:37 AM Narrative 09/28/2024 1:42 AM CDT [address] [address] EXAMINATION: CT HEAD WO CON CLINICAL HISTORY: [...] Procedure Note Kurtis Edwards MD - 09/28/[address] [address] EXAMINATION: CT HEAD WO CON CLINICAL HISTORY: [...] AMPHETAMINE (U) NEGATIVE NEGATIVE 12:17 AM CDT [facility] BARBITURATES SCREEN (U) NEGATIVE NEGATIVE 09/28/2024 12:17 AM CDT [facility] BENZODIAZEPINES SCREEN (U) NEGATIVE NEGATIVE 09/28/2024 12:17 AM CDT [facility] CANNABINOIDS SCREEN (U) NEGATIVE NEGATIVE 09/28/2024 12:17 AM CDT [facility] COCAINE METABOLITES (U) NEGATIVE NEGATIVE 09/28/2024 12:17 AM CDT [facility] METHADONE (U) NEGATIVE NEGATIVE 09/28/2024 12:17 AM CDT [facility] OPIATE SCREEN (U) NEGATIVE NEGATIVE 025 12:17 AM CDT [facility] PHENCYCLIDINE PCP (U) NEGATIVE NEGATIVE 09/28/2024 12:17 AM CDT [facility] Comment: NOTE: RESULTS OF THIS DRUG SCREEN SHOULD BE USED FOR MEDICAL PURPOSES ONLY AND NOT FOR LEGAL OR EMPLOYMENT PURPOSES. POSITIVE RESULTS ARE NOT CONFIRMED. MEDICATIONS CONTAINING EPHEDRINE MAY CAUSE FALSE POSITIVE AMPHETAMINE CALL [phone], LAB, TO REQUEST CONFIRMATION TESTING. IF CREATININE IS <40 mg/dL. RECOLLECTION IS SUGGESTED. AMPHETAMINE- 500 NG/ML BARBITURATE- 200 NG/ML BENZODIAZEPINES- 200 NG/ML THC- 50 NG/ML COCAINE- 150 NG/ML METHADONE- 300 NG/ML OPIATE- 300 MG/ML PCP- 25 NG/ML CREATININE (U) 25.6(L) 28 - 217 MG/DL 09/28/2024 12:17 AM CDT [facility] URINE SPECIMEN / Unknown 09/27/2024 11:55 PM CDT us Nyla Greer MD URINE ORDERABLES Lisa hernandez Result [facility] [address] [place] [address], * XR CHEST PORTABLE (09/27/2024 10:40 PM CDT) Anatomical Region Laterality Modality Chest Radiographic Jeanine ging 09/27/2024 10:5 7 PM CDT Impressions 09/27/2024 11:01 PM CDT IMPRESSION: 1. Moderate to large size retrocardiac hiatal hernia. 2. Mild atelectasis in bilateral lower lobes with no other acute pulmonary disease. Referred By: Interpreted By: Ladonna Bang MD, 09/27/2024 10:57 PM Narrative 09/27/2024 11:01 PM CDT [address] [address] EXAMINATION: XR Portable CXR, 1 View INDICATION: Trauma, fell down steps COMPARISON: CT chest, abdomen and pelvis with contrast 09/27/2024. FINDINGS: There is a moderate to large size retrocardiac hiatal hernia that is better seen on the comparison CT chest exam. front desk monitor leads overlie the chest and included upper abdomen. The cardiomediastinal silhouette is within normal limits. front desk monitor leads overlie the upper abdomen. Pulmonary vascularity is normal. There is mild atelectasis in bilateral lower lobes. Remaining lungs are clear with no acute infiltrate, consolidation, pneumothorax, or pleural effusion. No acute osseous abnormality. Procedure Note Ladonna Bang MD - 09/27/[address] [address] EXAMINATION: XR Portable CXR, 1 View INDICATION: Trauma, fell down steps COMPARISON: CT chest, abdomen and pelvis with contrast 09/27/2024. FINDINGS: There is a moderate to large size retrocardiac hiatal hernia that isbetter seen on the comparison CT chest exam. front desk monitor leadsoverlie the chest and included upper abdomen. The cardiomediastinalsilhouette is within normal limits. front desk monitor leads overlie theupper abdomen. Pulmonary vascularity [...] 10:2 2 PM CDT Narrative [facility] - 09/28/2024 5:52 AM CDT [facility] [address] Test Date: 2024-09-27 Pat Name: JEREMIAH GORDON Department: 41 Room: [place] [address] Gender: Female Skip Locator: [id number] : 1970 Requested By: NYLA GREER Order Number: [id number] Reading : Jaz Hinton Measurements Intervals [place] Rate: 77 P: 53 FL: 171 QRS: -20 QRSD: 110 T: 22 QT: 418 QTc: 475 Interpretive Statements SINUS RHYTHM POSSIBLE LEFT ATRIAL ENLARGEMENT [-0.1mV P WAVE IN V1/V2] Compared to ECG 09/01/2018 20:34:51 Intraventricular conduction delay no longer present Procedure Note Jaz Hinton MD - 09/28/2024 [facility] [address] Test Date: 2024-09-27 Pat Name: JEREMIAH GORDON Department: 41 Room: [place] [address] Gender: Female Skip Locator: [id number] : 1970 Requested By: NYLA GREER Order Number: [id number] Reading DMITRI Hinton Measurements Intervals [place] Rate: 77 P: 53 FL: 171 QRS: -20 QRSD: 110 T: 22 QT: 418 QTc: 475 Interpretive Statements SINUS RHYTHM POSSIBLE LEFT ATRIAL ENLARGEMENT [-0.1mV P WAVE IN V1/V2] Compared to ECG 09/01/2018 20:34:51 Intraventricular conduction delay no longer present us Nyla Greer MD ECG ORDERABLES Final Result [facility] ([facility] RAD * CT CHEST+ABD+PEL W CON [...] 10:20 PM Narrative 09/27/2024 10:[address] PM [address] [address] INDICATION: Trauma, pain, altered mental status COMPARISON: [...] Cervical findings discussed separate report. Procedure Note rTey Montero MD - 09/27/[address] [address] INDICATION: Trauma, pain, altered mental status COMPARISON: [...] 10:37 PM Narrative 09/27/2024 10:40 PM CDT [place] [address] INDICATION: Trauma COMPARISON: None TECHNIQUE: Nonenhanced CT [...] Procedure Note Trey Montero MD - 09/27/2024 [place] [address] INDICATION: Trauma COMPARISON: None TECHNIQUE: Nonenhanced CT [...] METABOLIC PANEL (09/27/2024 9:48 PM CDT) Pathologist [facility] GLUCOSE 97 70 - 99 MG/DL 09/27/2024 10:59 PM CDT [facility] BUN 7 7 - 18 MG/DL 09/27/2024 10:59 PM CDT [facility] CREATININE S/P/B 0.58 0.55 - 1.02 MG/DL 09/27/2024 10:59 PM CDT [facility] SODIUM S/P/B 136 136 - 145 MMOL/L 09/27/2024 10:59 PM CDT [facility] POTASSIUM S/P/B 3.7 3.5 - 5.1 MMOL/L 09/27/2024 10:59 PM CDT [facility] CHLORIDE S/P/B 107 97 - 115 MMOL/L 09/27/2024 10:59 PM CDT [facility] CO2 22.5 21 - 32 MMOL/L 09/27/2024 10:59 PM CDT [facility] CALCIUM S/P/B 8.6 8.5 - 10.1 MG/DL 09/27/2024 10:59 PM CDT [facility] BILIRUBIN TOTAL S/P/B 0.4 0.2 - 1.2 MG/DL 09/27/2024 10:59 PM CDT [facility] Comment: THIS ASSAY IS NOT RECOMMENDED FOR PATIENTS UNDERGOING TREATMENT WITH ELTROMBOPAG DUE TO THE POTENTIAL FOR FALSELY ELEVATED RESULTS. TOTAL PROTEIN S/P/B 6.5 6.4 - 8.2 G/DL 09/27/2024 10:59 PM CDT [facility] ALBUMIN S/P/B 3.4 3.4 - 5.0 G/DL 09/27/2024 10:59 PM CDT [facility] AST 22 15 - 37 U/L 09/27/2024 10:59 PM CDT [facility] ALT 22 14 - 55 U/L 09/27/2024 10:59 PM CDT [facility] ALKALINE PHOSPHATASE S/P/B 70 50 - 136 U/L 09/27/2024 10:59 PM CDT [facility] ANION GAP 6.5 2 - 10 MMOL/L 09/27/2024 10:59 PM CDT [facility] BUN CREATININE RATIO 12.0 6 - 26 09/27/2024 10:59 PM CDT [facility] A/G RATIO 1.1 1.0 - 2.0 RATIO 09/27/2024 10:59 PM CDT [facility] GFR ESTIMATE >90 >90 ML/MIN/1.7 3 M2 09/27/2024 10:59 PM CDT [facility] Comment: NOTE: eGFR is not [...] us Nyla Greer MD LABORATORY Final Result [facility] [address] [place] [address], * (ABNORMAL) CBC W/DIFF AUTOMATED (09/27/2024 9:48 PM CDT) [facility] WBC 9.28 4.5 - 11.0 x10'3/uL 09/27/2024 10:04 PM CDT [facility] RBC 4.32 4.20 - 5.40 x10'6/uL 09/27/2024 10:04 PM CDT [facility] HGB 13.9 12.0 - 16.0 G/DL 09/27/2024 10:04 PM CDT [facility] HCT 42.0 38.0 - 48.0 % 09/27/2024 10:04 PM CDT [facility] MCV 97.2 81.0 - 99.0 FL 09/27/2024 10:04 PM CDT [facility] MCH 32.2(H) 27.0 - 31.0 PG 09/27/2024 10:04 PM CDT [facility] MCHC 33.1 32.0 - 36.0 G/DL 09/27/2024 10:04 PM CDT [facility] RDW 14.4 11.5 - 14.5 % 09/27/2024 10:04 PM CDT [facility] PLT 269 130 - 400 x10'3/uL 09/27/2024 10:04 PM CDT [facility] MPV 9.1(L) 9.3 - 12.2 FL 09/27/2024 10:04 PM CDT [facility] DIFFERENTIAL TYPE AUTOMATED DIFFERENTIAL 09/27/2024 10:04 PM CDT [facility] NEUTROPHILS % 61.9 % 09/27/2024 10:04 PM CDT [facility] LYMPHOCYTES % 28.6 % 09/27/2024 10:04 PM CDT [facility] MONOCYTES % 6.7 % 09/27/2024 10:04 PM CDT [facility] EOSINOPHILS 2.0 % 09/27/2024 10:04 PM CDT [facility] BASOPHILS 0.3 % 09/27/2024 10:04 PM CDT [facility] IMMATURE GRANS % 0.5 % 09/28/19 10:04 PM CDT [facility] ABS. NEUTROPHILS 5.74 1.80 - 7.70 x10'3/uL 09/27/2024 10:04 PM CDT [facility] ABS. LYMPHOCYTES 2.65 1.00 - 4.80 x10'3/uL 09/27/2024 10:04 PM CDT [facility] ABS. MONOCYTES 0.62 0.24 - 0.86 x10'3/uL 09/27/2024 10:04 PM CDT [facility] ABS. EOSINOPHILS 0.19 0.04 - 0.36 x10'3/uL 09/27/2024 10:04 PM CDT [facility] ABS. BASOPHILS 0.03 0.01 - 0.08 x10'3/uL 09/27/2024 10:04 PM CDT [facility] ABS. IMMATURE GRANULOCYTES 0.05 0.00 - 0.49 x10'3/uL 09/27/2024 10:04 PM CDT [facility] 09/27/2024 9:48 PM CDT us Nyla Greer MD LABORATORY Final Result [facility] [address] [place] [address], * (ABNORMAL) ETHANOL (09/27/2024 9:48 PM CDT) ALCOHOL S/P/B 0.305(HH) <0.003 G/DL 09/27/2024 10:59 PM CDT [facility] Comment: Critical Result(s) Called at: 22:58:01 on 09/27/2024 by: MARQUIS ROSENBERG to and read back by:DEENA HARRIS 09/27/2024 9:48 PM CDT us Nyla Greer MD LABORATORY Final Result [facility] [address] [place] [address], from Last 3 Months Insurance MEDICAID [employer] Care Teams Training And Development Professional Relationship Specialty Start Date End Date [place]ez New [place] [address] [place] [address] PCP - General PHYSICIAN TIP BANDER 05/26/21
--- NOTE | 2024-10-29 14:40 | PC.NURSE ---
Pt given stool specimen container to use when she can give sample. Pt educated on how to use container and voices understanding.
[2024-10-29 14:54] VITALS: BP 123/78; PULSE 67; RESP 16; O2SAT 97
[2024-10-29 14:59] VITALS: BP 118/76; PULSE 68
[2024-10-29 15:00] VITALS: BP 117/83; PULSE 83
== END 2024-10-29 15:42 | disposition home or self-care (01) ==
PROVIDERS: Physician Assistant; Emergency Provider Emergency Medicine; PCP Physician Assistant
DX: K52.9 Noninfective gastroenteritis and colitis, unspecified (principal); J44.9 Chronic obstructive pulmonary disease, unspecified; F31.9 Bipolar disorder, unspecified; F17.210 Nicotine dependence, cigarettes, uncomplicated
CPT/HCPCS: 36415; 80053; 85025; 85610; 85730; 86850; 86900; 86901; 99283

== ENCOUNTER 2024-10-31 10:56 | Outpatient (CLI) | payer MEDICARE, MEDICAID, SELFPAY ==
--- NOTE | ~2024-10-31 | NM_ITS ---
EXAMINATION: NM hepatobiliary wo pharm DATE: 10/31/2024 13:52 CDT INDICATION: Weight loss. COMPARISON: Ultrasound dated 11/30/[address] dated 01/21/2021. TECHNIQUE: 4.7 mCi Tc-99m mebrofenin (Choletec) was administered intravenously. Scintigraphic images of the abdomen were obtained for one hour. At the 1 hour time point, the patient drank 8 oz Ensure, and imaging was continued for 60 minutes. Gallbladder ejection fraction was calculated by the technol ogist. FINDINGS: There is normal clearance of radiotracer from the blood pool. There is homogeneous tracer u ptake by the liver. Activity progresses to the bowel and gallbladder. The gallbladder ejection fract ion is 61%. Note that with this technique, normal GBEF >= 33%. IMPRESSION: 1. Normal hepatobiliary scan. Reviewed, dictated and finalized at location A.
--- OUTSIDE RECORDS SUMMARY | 2024-10-31 12:28 | XMS_ITS | Referral Summary ---
Author Organization [facility] [address] [place] [address] Care Team Providers Care Chicken Cleaner Name Role Phone Inez eNw Primary Care Provider + [phone] Candido Guerin MD Unavailable [phone] Anthony Diez MD Unavailable [phone] Encounters Date Type Department Care Team Description 10/30/2024 Telephone [facility] [address] [place] [phone] Inez New PA 10/15/2024 Telephone [facility] [address] [place] [address] Sandy Ramirez MA Successful Phone Call (MED ADHERENCE) 10/03/2024 Orders Only [facility] Health Information Management [address] [place] [id number] Scanning, Provider 10/02/2024 Orders Only [facility] [address] [place] [phone] Inez New PA Enlarged liver (Primary Dx); Bile duct abnormality 09/28/2024 Telephone [facility] [address] [place] [address] Inez New PA 09/27/2024 Orders Only [facility] Health Information Management [address] [place] [address] Inez New PA 09/24/2024 Documentation [facility] Cardiology [address] [place] [address] Tessie [place] MA 09/21/2024 Telephone [facility] Accountable Care Organization [address] [place] [address] Antonella Costa Chart Review ([facility] Med Adherence ) 09/11/2024 Orders Only [facility] Internal Medicine at [place] [address] [place] [address] Inez New PA Need for RSV vaccination (Primary Dx) 09/05/2024 Orders Only [facility] Family Medicine [facility] [place] [address] Inez New PA Positive HARRIETT (antinuclear antibody) (Primary Dx) 09/05/2024 Orders Only [facility] Family Medicine [address] [place] [address] Inez New PA Positive HARRIETT (antinuclear antibody) (Primary Dx) 09/04/2024 Results Follow-Up [facility] Family Medicine [address] [place] [address] Inez New PA 08/28/2024 Orders Only [facility] Family Medicine [address] [place] [address] Inez New PA Dizziness (Primary Dx); Persistent headaches 08/28/2024 Orders Only [facility] Family Medicine [address] [place] [address] Inez New PA Facial rash (Primary Dx) 08/24/2024 Orders Only [facility] Health Information Management [address] [place] [address] Inez New PA 08/24/2024 Telephone [facility] [address] [place] [address] Jeffy Manuel MD Cpap titration results / cpap order 08/23/[address] [place] [phone] Inez New PA 08/23/[address] [place] [phone] Inez New PA Medication Request 08/23/[address] [place] [phone] Inez New PA 08/23/2024 7:47 PM ABRASIVE GRINDER - 08/23/2024 11:59 PM ABRASIVE GRINDER Hospital Encounter [facility] [address] [place] [address] SHERRY (obstructive sleep apnea) Discharge Disposition: Discharge to home or self care 08/20/[address] [place] [phone] Inez New PA 08/15/2024 10:00 AM ABRASIVE GRINDER Office Visit [address] [place] [phone] Inez New PA Annual physical exam (Primary Dx); Dizziness; Elevated blood pressure reading; Hypertension associated with diabetes (HCC); Type 2 diabetes mellitus without complication, without long-term current use of insulin (HCC); Chronic obstructive pulmonary disease, unspecified COPD type (HCC); Type 2 diabetes mellitus with hyperlipidemia (HCC); SHERRY (obstructive sleep apnea); Morbid obesity (HCC); BMI 40.0-44.9, adult (HCC); Essential (primary) hypertension from Last 3 Months Allergies No known [...] use. Do not swallow. 90 each 1 02/20/20 25 Active metFORMIN (GLUCOPHAGE) 500 mg tabletIndications [...] 08/26/2024 Assessment & Plan (08/26/2024 4:47 PM ABRASIVE GRINDER): This is a significant, separately identifiable problem [...] 08/26/2024 Assessment & Plan (08/26/2024 4:46 PM ABRASIVE GRINDER): Encouraged healthy lifestyle, good nutrition and exercise. Encouraged Calcium and Vitamin D and weight bearing exercise for bone health. Reviewed immunizations Reviewed age appropirate screenings. Hypertension associated with diabetes 08/15/2024 Assessment & Plan (08/26/2024 4:38 PM ABRASIVE GRINDER): Blood pressure still isn't perfectly controlled. Continue with the lisinopril 20. She has not been taking the propranolol so will switch to Bystolic 5 for a q.d. dosing and see how she does. Call in a week with readings. BMI 40.0-44.9, adult 06/11/2024 Assessment & Plan (08/15/2024 10:04 AM ABRASIVE GRINDER): Discussed the patient's BMI. The BMI is above average. BMI management plan is completed. BMI Follow-up includes: nutrition counseling, exercise counseling and education provided. Assessment & Plan (08/01/2024 11:21 AM ABRASIVE GRINDER): Discussed the patient's BMI. The BMI is above average. BMI management plan is completed. BMI Follow-up includes: nutrition counseling, exercise counseling and education provided. Assessment & Plan (06/11/2024 12:16 PM ABRASIVE GRINDER): Discussed the patient's BMI. The BMI is above average. BMI management plan is completed. BMI Follow-up includes: nutrition counseling, exercise counseling and education provided. Elevated TSH 03/17/2024 Assessment & Plan (03/18/2024 8:08 PM CDT): Check labs Abnormal thyroid screen (blood) 03/17/2024 Type 2 diabetes mellitus wit hout complication, without long-term current use of insulin 03/17/2024 Assessment & Plan (08/26/2024 4:37 PM ABRASIVE GRINDER): Stressed importance of continued A1c control to minimize the director long term care effects of diabetes. Bring accuchecks to office when instructed to do so. Check A1c about every 3-6 months. Take medication as prescribed. Get annual eye exam. Encouraged GLENDY/Statin if able to tolerate. Encouraged weight control and encouraged diabetic diet and exercise. Continue with metformin 500 le A1c is tightly controlled at 5.8 Assessment & Plan (08/13/2024 1:18 PM ABRASIVE GRINDER): Stressed importance of continued A1c control to minimize the director long term care effects of diabetes. Bring accuchecks to office when instructed to do so. Check A1c about every 3-6 months. Take medication as prescribed. Get annual eye exam. Encouraged GLENDY/Statin if able to tolerate. Encouraged weight control and encouraged diabetic diet and exercise. A1c is nicely controlled at 5.9. Continue metformin 500 mg Assessment & Plan (06/11/2024 12:15 PM ABRASIVE GRINDER): Stressed importance of continued A1c control to minimize the director long term care effects of diabetes. Bring accuchecks to office [...] Discussed with patient at length diabetes, pathogenesis, director long term care sequela, end organ damage, diet/exercise/weight loss, and [...] on a regular basis to avoid senior care problems. Offered referral to capsule inspector. Start metformin 500 mg 1 tablet daily [...] referral Assessment & Plan (09/07/2023 10:34 PM ABRASIVE GRINDER): Ears are clear. Suspect eustachian tube dysfunction. Recommend Flonase, mucinex and antihistamine. If symptoms persist, may need ENT referral. Morbid obesity 07/22/2022 Assessment & Plan (08/26/2024 4:37 PM ABRASIVE GRINDER): Discussed the patient's BMI. The BMI is above average. BMI management plan is completed. BMI Follow-up includes: nutrition counseling, exercise counseling and education provided. Assessment & Plan (08/01/2024 11:22 AM ABRASIVE GRINDER): Discussed the patient's BMI. The BMI is above average. BMI management plan is completed. BMI Follow-up includes: nutrition counseling, exercise counseling and education provided. Assessment & Plan (06/11/2024 12:15 PM ABRASIVE GRINDER): Discussed the patient's BMI. The BMI is above average. BMI management plan is completed. BMI Follow-up includes: nutrition counseling, exercise counseling and education provided. Assessment & Plan (03/18/2024 8:06 PM CDT): Discussed the patient's BMI. The BMI is above average. BMI management plan is completed. BMI Follow-up includes: nutrition counseling, exercise counseling and education provided. Assessment & Plan (09/07/2023 10:31 PM ABRASIVE GRINDER): Discussed the patient's BMI. The BMI is above average. BMI management plan is completed. BMI Follow-up includes: nutrition counseling, exercise counseling and education provided. Patient has an obesity-related condition (not limited to: hypertension, obstructive sleep apnea, osteoarthritis, hyperlipidemia, diabetes, etc.). Therefore, morbid obesity may be documented for patients with a BMI between 35.00-39.99. Assessment & Plan (05/21/2023 3:46 PM ABRASIVE GRINDER): Discussed the patient's BMI. The BMI is above average. BMI management plan is completed. BMI Follow-up includes: nutrition counseling, exercise counseling and education provided. Patient has an obesity-related condition (not limited to: hypertension, obstructive sleep apnea, osteoarthritis, hyperlipidemia, diabetes, etc.). Therefore, morbid obesity may be documented for patients with a BMI between 35.00-39.99. Assessment & Plan (07/22/2022 2:01 PM ABRASIVE GRINDER): Discussed the patient's BMI. The BMI is above average. BMI management plan is completed. BMI Follow-up includes: nutrition counseling, exercise counseling and education provided. Patient has an obesity-related condition (not limited to: hypertension, obstructive sleep apnea, osteoarthritis, hyperlipidemia, diabetes, etc.). Therefore, morbid obesity may be documented for patients with a BMI between 35.00-39.99. Symptomatic anemia 05/28/2022 Assessment & Plan (09/07/2023 10:29 PM ABRASIVE GRINDER): Known anemia. Has had transfusion. Continue to [...] Guajardo Assessment & Plan (06/14/2020 5:55 PM ABRASIVE GRINDER): Refer back to Ortho. Offered PT. She [...] 09/11/2019 Assessment & Plan (06/11/2024 12:15 PM ABRASIVE GRINDER): Mammogram order provided Assessment & Plan (08/23/2021 9:43 PM ABRASIVE GRINDER): Mammogram order provided Assessment & Plan (09/26/2020 8:30 PM CDT): Mammogram order provided Assessment & Plan (09/11/2019 9:21 AM CDT): Mammogram order provided Sciatica of right side 06/17/2019 Assessment & Plan (06/17/2019 6:14 PM ABRASIVE GRINDER): Voltaren gel Exercise/Start PT Followup if sxs worsen or don't improved. Vertigo 02/28/2019 Assessment & Plan (03/18/2024 8:06 PM CDT): Uses meclizine p.r.n. with good results Assessment & Plan (09/26/2020 8:29 PM CDT): antivert prn Assessment & Plan (03/15/2020 11:09 AM CDT): Persitent vertigo. 02/2020 CT head was essentially negative. She has finally agreed to vestibular therapy. Will still change neurology referral from [place] to [place] as patient able to arranage transportation easier. [...] 09/2018 Assessment & Plan (08/26/2024 4:36 PM ABRASIVE GRINDER): Encouraged patient to follow low fat/low chol diet like the Mediterranean diet. Increase good fats in the diet. Increase exercise. Monitor labs as needed. Continue Crestor Assessment & Plan (08/13/2024 1:17 PM ABRASIVE GRINDER): Encouraged patient to follow low fat/low chol diet like the Mediterranean diet. Increase good fats in the diet. Increase exercise. Monitor labs as needed. Continue Crestor Assessment & Plan (06/11/2024 11:51 AM ABRASIVE GRINDER): Stressed importance of continued A1c control to minimize the director long term care effects of diabetes. Bring accuchecks to office [...] of continued A1c control to minimize the director long term care effects of diabetes. Bring accuchecks to office [...] Crestor Assessment & Plan (09/07/2023 10:30 PM ABRASIVE GRINDER): Encouraged patient to follow low fat/low chol diet like the Mediterranean diet. Increase good fats in the diet. Increase exercise. Monitor labs as needed. Continue with Crestor Assessment & Plan (05/21/2023 3:44 PM ABRASIVE GRINDER): Encouraged patient to follow low fat/low chol diet like the Mediterranean diet. Increase good fats in the diet. Increase exercise. Monitor labs as needed. Continue Crestor Assessment & Plan (07/22/2022 1:49 PM ABRASIVE GRINDER): Encouraged patient to follow low fat/low chol diet like the Mediterranean diet. Increase good fats in the diet. Increase exercise. Monitor labs as needed. Continue Crestor Assessment & Plan (08/23/2021 9:42 PM ABRASIVE GRINDER): Encouraged patient to follow fat/low chol diet [...] 12/04/2018 Assessment & Plan (06/11/2024 12:15 PM ABRASIVE GRINDER): Encouraged smoking cessation. Discussed 3 minutes. Reviewed options for assistance with cessation. Reviewed senior care sequela associated with smoking. Pt declines assistance at this time but may contact the office at anytime for further help as they desire. Assessment & Plan (03/18/2024 8:05 PM CDT): Encouraged smoking cessation. Discussed 3 minutes. Reviewed options for assistance with cessation. Reviewed director long term care sequela associated with smoking. Pt declines assistance at this time but may contact the office at anytime for further help as they desire. Declines low-dose CT at this point Assessment & Plan (09/07/2023 10:30 PM ABRASIVE GRINDER): Encouraged smoking cessation. Discussed 3 minutes. Reviewed options for assistance with cessation. Reviewed director long term care sequela associated with smoking. Pt declines assistance at this time but may contact the office at anytime for further help as they desire. Assessment & Plan (07/22/2022 1:47 PM ABRASIVE GRINDER): Encouraged smoking cessation. Discussed 3 minutes. Reviewed options for assistance with cessation. Reviewed director long term care sequela associated with smoking. Pt declines assistance at this time but may contact the office at anytime for further help as they desire. Assessment & Plan (08/23/2021 9:42 PM ABRASIVE GRINDER): Encouraged smoking cessation. Discussed 3 minutes. Reviewed options for assistance with cessation. Reviewed senior care sequela associated with smoking. Pt declines assistance at this time but may contact the office at anytime for further help as they desire. Assessment & Plan (04/08/2021 2:56 PM CDT): Encouraged smoking cessation. Discussed 3 minutes. Reviewed options for assistance with cessation. Reviewed director long term care sequela associated with smoking. Pt declines assistance at this time but may contact the office at anytime for further help as they desire. Assessment & Plan (01/18/2021 11:39 PM CDT): Encouraged smoking cessation. Discussed 3 minutes. Reviewed options for assistance with cessation. Reviewed director long term care sequela associated with smoking. Pt declines assistance at this time but may contact the office at anytime for further help as they desire. Assessment & Plan (09/26/2020 8:30 PM CDT): Encouraged smoking cessation. Discussed 3 minutes. Reviewed options for assistance with cessation. Reviewed director long term care sequela associated with smoking. Pt declines assistance at this time but may contact the office at anytime for further help as they desire. Assessment & Plan (06/14/2020 5:55 PM ABRASIVE GRINDER): Encouraged smoking cessation. Discussed 3 minutes. Reviewed options for assistance with cessation. Reviewed senior care sequela associated with smoking. Pt declines assistance at this time but may contact the office at anytime for further help as they desire. Assessment & Plan (03/15/2020 11:10 AM CDT): Encouraged smoking cessation. Discussed 3 minutes. Reviewed options for assistance with cessation. Reviewed director long term care sequela associated with smoking. Pt declines assistance [...] options for assistance with cessation. Reviewed senior care sequela associated with smoking. Pt declines assistance at this time but may contact the office at anytime for further help as they desire. Assessment & Plan (06/17/2019 6:16 PM ABRASIVE GRINDER): Encouraged smoking cessation. Discussed 3 minutes. Reviewed options for assistance with cessation. Reviewed senior care sequela associated with smoking. Pt declines assistance at this time but may contact the office at anytime for further help as they desire. Assessment & Plan (01/30/2019 1:03 PM CDT): Encouraged smoking cessation. Discussed approx 3 minutes. Gastroesophageal reflux disease without esophagi tis 12/04/2018 Assessment & Plan (06/11/2024 12:15 PM ABRASIVE GRINDER): Continue PPI Assessment & Plan (03/18/2024 8:05 PM CDT): Patient has been following closely with Dr. Guerin GI. She transferred and saw Dr. Nath and had an EGD done. States at this point her symptoms are pretty stable so will just continue to monitor continuing the Bentyl as needed and continue PPI p.r.n. Assessment & Plan (05/21/2023 3:44 PM ABRASIVE GRINDER): Continue PPI p.r.n.. Continue per GI Assessment & Plan (07/22/2022 1:47 PM ABRASIVE GRINDER): Continue per Dr. Guerin. She is currentl on omeprazole sucralfate. Will await his recommendations Assessment & Plan (08/23/2021 9:42 PM ABRASIVE GRINDER): Continue PPI. She is unsure if the Dexilant will continue to be covered by her insurance so she will contact us with the letter she has at home with her options. Assessment & Plan (04/08/2021 2:55 PM CDT): Increased reflux symptoms. She is currently on Dexilant. Encouraged to continue with the same regimen. Will refer her to GI Dr. Zamora at [place] she is due for colonoscopy and may [...] 12/04/2018 Assessment & Plan (06/11/2024 12:15 PM ABRASIVE GRINDER): Supplement Assessment & Plan (03/18/2024 8:06 PM CDT): Supplement Assessment & Plan (09/07/2023 10:30 PM ABRASIVE GRINDER): Supplement Assessment & Plan (05/21/2023 3:44 PM ABRASIVE GRINDER): Supplement Assessment & Plan (07/22/2022 1:47 PM ABRASIVE GRINDER): Supplement Assessment & Plan (09/26/2020 8:14 PM CDT): supplement Assessment & Plan (09/11/2019 9:18 AM CDT): supplement Assessment & Plan (01/30/2019 1:02 PM CDT): supplement COPD (chronic obstructive pulmonary disease) 09/2018 Assessment & Plan (08/26/2024 4:37 PM ABRASIVE GRINDER): COPD symptoms have been stable. Continue Breo and albuterol p.r.n. Assessment & Plan (08/13/2024 1:18 PM ABRASIVE GRINDER): Continue with albuterol and Breo as breathing is stable Assessment & Plan (06/11/2024 12:15 PM ABRASIVE GRINDER): Encouraged complete smoking cessation. Continue Breo and albuterol as needed Assessment & Plan (03/18/2024 8:06 PM CDT): Encouraged complete smoking cessation. Continue albuterol nebs and Breo as needed. Assessment & Plan (09/07/2023 10:30 PM ABRASIVE GRINDER): Patient with COPD. Continue with albuterol and Breo. Assessment & Plan (05/21/2023 3:44 PM ABRASIVE GRINDER): Continue Symbicort and albuterol p.r.n. continue Flonase Assessment & Plan (07/22/2022 1:47 PM ABRASIVE GRINDER): Stressed smoking cessation. Continue Symbicort albuterol inhaler nebulizer p.r.n. Assessment & Plan (07/27/2021 7:15 AM ABRASIVE GRINDER): Continues Symbicort/prn albuterol Still requires Neb Albuterol [...] basis as instructed. New prescription sent to [place] [facility]. [id number] completed today Assessment & Plan (09/26/2020 8:14 PM CDT): Continue Symbicort and Albuterol prn Assessment & Plan (03/15/2020 11:10 AM CDT): Continue current regimen. Stop smoking Assessment & Plan (09/11/2019 9:18 AM CDT): STOP smoking. Continue with current regimen inhalers Albuterol/Symbicort Assessment & Plan (01/30/2019 12:54 PM CDT): Continue with Symbicort SHERRY (obstructive sleep apnea) 12/02/2018 Assessment & Plan (08/26/2024 4:36 PM ABRASIVE GRINDER): Patient has been diagnosed with SHERRY. Awaiting titration study for treatment plan. Continue per Dr. Manuel Assessment & Plan (06/11/2024 11:43 AM ABRASIVE GRINDER): Patient has established with Dr. Manuel. She had her sleep study test that did confirm sleep apnea. Awaiting the titration study Assessment & Plan (03/18/2024 8:03 PM CDT): Patient was diagnosed with sleep apnea at [facility] with Dr. Joseph. She would not wear the mask so sent the machine back. Has been untreated for many years. Continues to snore and have daytime sleepiness. Strongly encouraged re- evaluation. Willing to see Dr. Manuel at [facility]. Referral placed Assessment & Plan (09/07/2023 10:30 PM ABRASIVE GRINDER): Continue with CPAP Assessment & Plan (07/22/2022 1:36 PM ABRASIVE GRINDER): Continue CPAP Assessment & Plan (04/08/2021 2:56 [...] 12/02/2018 Assessment & Plan (08/13/2024 1:17 PM ABRASIVE GRINDER): Continue to follow with Shakira in [place] Dr. Etienne's office. She stopped her clonazepam [...] acutely. Assessment & Plan (06/11/2024 11:43 AM ABRASIVE GRINDER): Continue per psychiatrist. She continues to take out her medications and they are updated on her chart Assessment & Plan (03/18/2024 8:04 PM CDT): Continue following with her psychiatrist for management of her mental health concerns. Assessment & Plan (09/07/2023 10:30 PM ABRASIVE GRINDER): Continue per Psychiatry. Current medications include Klonopin Ingrezza Lexapro Vraylar 6 mg Lamictal and lithium Assessment & Plan (05/21/2023 3:45 PM ABRASIVE GRINDER): Continue per psychiatrist Assessment & Plan (07/22/2022 1:45 PM ABRASIVE GRINDER): Continue per psychiatrist. Patient states she is on clonazepam, latuda, Hydroxyzine, Cymbalta and Lexapro Assessment & Plan (08/23/2021 9:42 PM ABRASIVE GRINDER): Per psychiatrist Assessment & Plan (04/08/2021 2:58 PM CDT): Continue per Psychiatry Assessment & Plan (06/14/2020 5:56 PM ABRASIVE GRINDER): Unsure of exact diagnosis. Medication/treatment plan is [...] 08/26/2024 Assessment & Plan (08/13/2024 1:19 PM ABRASIVE GRINDER): Advised patient it is difficult to know if she has true hypertension versus anxiety/panic. Recommend doing home readings and calling us in a couple of weeks with those readings. If she can not do them at home she can always come in but I know transportation is sometimes difficult. Need for influenza vaccination 06/11/2024 08/26/2024 Assessment & Plan (06/11/2024 12:16 PM ABRASIVE GRINDER): Flu vaccine updated in the office today Annual physical exam 06/11/2024 025 Assessment & Plan (06/11/2024 12:16 PM ABRASIVE GRINDER): Encouraged healthy lifestyle, good nutrition and exercise. [...] 03/17/2024 Assessment & Plan (09/07/2023 10:31 PM ABRASIVE GRINDER): Encouraged healthy lifestyle, good nutrition and exercise. Encouraged Calcium and Vitamin D and weight bearing exercise for bone health. Reviewed immunizations. Reviewed age appropirate screenings. Medicare Wellness Documentation is completed within the chart BMI 38.0-38.9,adult 05/21/2023 09/07/19 24 Assessment & Plan (05/21/2023 3:46 PM ABRASIVE GRINDER): Discussed the patient's BMI. The BMI is above average. BMI management plan is completed. BMI Follow-up includes: nutrition counseling, exercise counseling and education provided. BMI 39.0-39.9,adult 07/22/2022 05/04/20 23 Assessment & Plan (07/22/2022 1:48 PM ABRASIVE GRINDER): Discussed the patient's BMI. The BMI is above average. BMI management plan is completed. BMI Follow-up includes: nutrition counseling, exercise counseling and education provided. Need for vaccination 07/22/2022 024 Assessment & Plan (05/21/2023 3:46 PM ABRASIVE GRINDER): Flu vaccine updated in the office Assessment & Plan (07/22/2022 1:48 PM ABRASIVE GRINDER): Flu vaccine at the office today Encounter for screening mamm ogram for malignant neoplasm of breast 07/22/2022 09/07/2023 Assessment & Plan (07/22/2022 1:48 PM ABRASIVE GRINDER): Mammogram order provided [facility] diarrhea 04/08/2021 09/07/2023 [...] 09/07/2023 Assessment & Plan (07/22/2022 1:48 PM ABRASIVE GRINDER): Encouraged healthy lifestyle, good nutrition and exercise. [...] 2015. Prefers to see a provider at [facility]. She is also having burning in [...] 01/14/20212022 Assessment & Plan (08/23/2021 9:43 PM ABRASIVE GRINDER): Obesity is unchanged. Discussed the patient's BMI. [...] 23 Assessment & Plan (07/27/2021 7:21 AM ABRASIVE GRINDER): Obesity is unchanged. Discussed the patient's BMI. [...] onset of sxs. Check COVID test thru [facility] collection site in [place]. Treat sxs with Tylenol, Cough/cold medication otc [...] water often. If needed, use a hand correctional security officer that contains at least 60% alcohol. Clean [...] 04/08/2021 Assessment & Plan (07/22/2020 11:47 AM ABRASIVE GRINDER): Declines covid 19 testing at this time. Will start on ceftin 500mg bid x 7 days. She was advised to report to office if having otorrhea or worsening of symptoms. Need for immunization against influenza 06/14/2020 02/17/2021 Assessment & Plan (06/14/2020 5:57 PM ABRASIVE GRINDER): Updated in office today BMI 37.0-37.9, adult 06/10/2020 024 Assessment & Plan (09/07/2023 10:31 PM ABRASIVE GRINDER): Discussed the patient's BMI. The BMI is above average. BMI management plan is completed. BMI Follow-up includes: nutrition counseling, exercise counseling and education provided. Assessment & Plan (06/10/2020 1:35 PM ABRASIVE GRINDER): Obesity is unchanged. Discussed the patient's BMI. The BMI is above average. BMI management plan is completed. BMI Follow-up includes: nutrition counseling, exercise counseling and education provided.Obesity is unchanged. Discussed the patient's BMI. Positive depression screening 06/10/2020 08/26/2024 Assessment & Plan (07/22/2020 11:47 AM ABRASIVE GRINDER): Continue medication same Assessment & Plan (06/14/2020 5:56 PM ABRASIVE GRINDER): Pt denies any suicidal or homicidal thoughts. Continue meds per Psychiatrist-- BMI 35.0-35.9,adult 03/15/2020 06/10/20 Acute lateral meniscal [...] 03/17/2024 Assessment & Plan (09/07/2023 10:30 PM ABRASIVE GRINDER): Probably multifactorial. Check labs and followup to re-evaluate Assessment & Plan (09/11/2019 9:21 AM CDT): Probably multifactorial. Check labs and followup to re-evaluate Hyperglycemia 09/11/2019 03/06/2024 Assessment & Plan (09/07/2023 10:30 PM ABRASIVE GRINDER): Pre-diabetes/hyperglycemia is a precursor to Dm. Stressed [...] diet and exercising counseling. Breast cancer screening 01/30/2019 03 Assessment & Plan (09/11/2019 9:20 AM CDT): [...] on file Legal Sex Female 4:54 AM ABRASIVE GRINDER Gender Identity Not on file Sexual Orientation Not on file Occupation Industry Job Start Date Job End Date Disabled Not on file Not on file Not on file Last Filed Vital Signs Vital Sign Reading Time Taken Comments Blood Pressure 164/86 08/15/2024 10:04 AM ABRASIVE GRINDER Pulse 85 08/15/2024 10:04 AM ABRASIVE GRINDER Temperature 36.3 C (97.4 F) 08/15/2024 10:04 AM ABRASIVE GRINDER Respiratory Rate 18 05/18/2024 9:37 AM ABRASIVE GRINDER Oxygen Saturation 97% 08/15/2024 10:04 AM ABRASIVE GRINDER Inhaled Oxygen Concentration - - Weight 105 kg (231 lb 6.4 oz) 08/15/2024 10:04 A M ABRASIVE GRINDER Height 154.9 cm (5' 1 ) 08/15/2024 10:04 AM ABRASIVE GRINDER Body Mass Index 43.72 08/15/2024 10:04 AM ABRASIVE GRINDER Plan of Treatment Not on file Procedures Procedure Name Priority Date/Time Associated Diagnosis Comments SCAN - RADIOLOGY/IMAGING 10/03/2024 SCAN - RADIOLOGY/IMAGING 09/27/2024 HARRIETT TITER & PATTERN Routine 08/28/2024 1 :17 PM ABRASIVE GRINDER HARRIETT QUALITATIVE WITH REFLEX TO HARRIETT QUANTITATIVE Routine 08/28/2024 1:17 PM ABRASIVE GRINDER Facial rash SCAN - PATHOLOGY 08/24/2024 GI - RESULT 08/24/2024 PSG (COMPLEX) Routine 08/23/2024 7:47 PM ABRASIVE GRINDER SHERRY (obstructive sleep apnea) ECG 12-LEAD Routine 08/15/2024 10:46 AM ABRASIVE GRINDER Elevated blood pressure reading SCREENING MAMMOGRAM BILATERAL W ALBERTO Schedule Routine, Read Routine (OP Routine) 08/08/2024 2:15 PM ABRASIVE GRINDER Breast cancer screening by mammogram ALBUMIN CREATININE RATIO, URINE Routine 06/01/2024 7:12 AM ABRASIVE GRINDER Type 2 diabetes mellitus with hyperlipidemia (HCC) COMPREHENSIVE METABOLIC PANEL Routine 06/01/2024 7:11 AM ABRASIVE GRINDER Type 2 diabetes mellitus with hyperlipidemia (HCC) HEMOGLOBIN A1C Routine 06/01/2024 7:11 AM ABRASIVE GRINDER Type 2 diabetes mellitus with hyperlipidemia (HCC) LIPID PANEL Routine 06/01/2024 7:11 AM ABRASIVE GRINDER Hyperlipidemia, unspecified hyperlipidemia type HM COLONOSCOPY Routine 05/26/2021 THINPREP CHILD CARE SPECIALIST PAP (IMAGE GUIDED) LIQUID-BASED PREP Routine 08/03/2017 12:16 PM ABRASIVE GRINDER from Last 3 Months or Most Recently Relevant to Health Maintenance Results * SCAN - RADIOLOGY/IMAGING (10/03/2024) Anatomical Region Laterality Modality Other Provider Scanning Final Result * SCAN - RADIOLOGY/IMAGING (09/27/2024) Anatomical Region Laterality Modality Other Inez VELASCO Final Resu lt * (ABNORMAL) HARRIETT ab ql w/rflx to HARRIETT qn (08/28/2024 1:17 PM ABRASIVE GRINDER) HARRIETT, qual POSITIVE( A) NEGATIVE [facility] [place] Comment: HARRIETT IFA is a first line screen for detecting the presence of up to approximately 150 autoantibodies in various autoimmune diseases. A positive HARRIETT IFA result is suggestive of autoimmune disease and reflexes to titer and pattern. Further laboratory testing may be considered if clinically indicated. For additional information, please refer to http://education.oLyfe/faq/GBS886 (This link is being provided for informational/ educational purposes only.) Blood 08/28/2024 1:17 PM ABRASIVE GRINDER 08/28/2024 1:18 PM ABRASIVE GRINDER Narrative [facility] - 08/30/2024 1:13 PM ABRASIVE GRINDER FASTING:YES FASTING: YES Inez VELASCO LAB BLOOD ORDERABLES Final Result [facility] [address] [place] [address] * (ABNORMAL) Antinuclear Antibodies Titer and Pattern (08/28/2024 1:17 PM ABRASIVE GRINDER) HARRIETT, quant 1:80(H) titer [facility] [...] AC-1: Homogeneous International Consensus on HARRIETT Patterns (https://doi.org/10.1515/exqt-4301-4274) 08/28/2024 1:1 7 PM ABRASIVE GRINDER 08/28/2024 1:18 PM ABRASIVE GRINDER Narrative [facility] - 08/30/2024 1:13 PM ABRASIVE GRINDER FASTING:YES FASTING: YES Inez VELASCO LAB BLOOD ORDERABLES Final Result [facility] [address] [place] [address] * GI - RESULT (08/24/2024) Anatomical Region Laterality Modality Other Inez VELASCO Final Resu lt * SCAN - PATHOLOGY (08/24/2024) Provider Scanning Final Result * PSG-Sleep Provider Use Only (08/23/2024 7:47 PM ABRASIVE GRINDER) Jeffy Manuel MD [facility]ENTER ORDERABLES F inal Result [facility] [address] [place] [address] * ECG 12 lead (08/15/2024 10:46 AM ABRASIVE GRINDER) Inez VELASCO ECG ORDERABLES Final Resu lt * Screening Mammogram Bilateral W Alberto (08/08/2024 2:15 PM ABRASIVE GRINDER) Anatomical Region Laterality Modality Breast Bilateral Mammography Impressions 08/08/2024 2:15 PM ABRASIVE GRINDER 1.No mammographic evidence of malignancy 2.Routine screening recommended for 1 year BI-RADS Category 1 Negative us Inez VELASCO IMG MAMMO PROCEDURES Final Result * Albumin Creatinine Ratio, Urine (06/01/2024 7:12 AM ABRASIVE GRINDER) Creatinine, ur 42 20 - 275 mg/dL [...] a diagnostic category. Urine 06/01/2024 7:12 AM ABRASIVE GRINDER 06/01/2024 7:13 AM ABRASIVE GRINDER Inez VELASCO LAB URINE ORDERABLES Final Result [facility] [address] [place] [address] * (ABNORMAL) Hemoglobin A1c (06/01/2024 7:11 AM ABRASIVE GRINDER) Hgb A1C 5.9(H) <5.7 % of total [...] diabetes for children. Blood 06/01/2024 7:11 AM ABRASIVE GRINDER 06/01/2024 7:11 AM ABRASIVE GRINDER Narrative [facility] - 06/01/2024 9:56 PM ABRASIVE GRINDER FASTING:YES FASTING: YES us Inez VELASCO LAB BLOOD ORDERABLES Final Result [facility] [address] [place] [address] * (ABNORMAL) Lipid panel (06/01/2024 7:11 AM ABRASIVE GRINDER) [facility] Cholesterol 142 <200 mg/dL [facility] HDL 47(L) > OR = 50 mg/dL [facility] Triglycerides 124 <150 mg/dL [facility] LDL 74 mg/dL (calc) [facility]uk[facility] Jackson Comment: Reference range: <100 Desirable range <100 mg/dL for primary prevention; <70 mg/dL for patients with CHD or diabetic patients with > or = 2 CHD risk factors. LDL-C is now calculated using the Arley-Devi calculation, which is a validated novel method providing better accuracy than the Friedewald equation in the estimation of LDL-C. Arley COSTA et al. FRANKY. 2013;310(19): 7879-7895 (http://education.Skiipi.[address] Stark/faq/WGR393) Chol/HDL ratio 3.0 <5.0 (calc) [facility] Non-HDL, (LDL+VLDL) 95 <130 mg/dL (calc) [facility]uk[facility] Comment: For patients with diabetes plus 1 major ASCVD risk factor, treating to a non-HDL-C goal of <100 mg/dL (LDL-C of <70 mg/dL) is considered a therapeutic option. Blood 06/01/2024 7:11 AM ABRASIVE GRINDER 06/01/2024 7:11 AM ABRASIVE GRINDER Narrative [facility] - 06/01/2024 9:56 PM ABRASIVE GRINDER FASTING:YES FASTING: YES us Inez VELASCO LAB BLOOD ORDERABLES Final Result ESTELLA [facility] [address] [place] [address] * Comprehensive metabolic panel (06/01/2024 7:11 AM ABRASIVE GRINDER) Pathologist [facility] Glucose 98 65 - 99 mg/dL Estella [facility] Comment: Fasting reference interval BUN 11 7 - 25 mg/dL [facility] Creatinine 0.75 0.50 - 1.03 mg/dL [facility] eGFR 95 > OR = 60 mL/min/1.7 3m2 [facility] BUN/creat ratio SEE NOTE: 6 - 22 (calc) Estella [facility] Comment: Not Reported: BUN and Creatinine [...] Albumin 4.6 3.6 - 5.1 g/dL [facility] GLOBULIN 2.2 1.9 - 3.7 g/dL (calc) [facility] Alb/glob ratio 2.1 1.0 - 2.5 (calc) Estella [facility] Bilirubin, total 0.6 0.2 - 1.2 mg/dL [facility] Alk phos 69 37 - 153 U/L [facility] AST 24 10 - 35 U/L Estella [facility] shuk[facility] Jackson ALT (SGPT) 21 6 - 29 U/L Estella [facility] Blood 06/01/2024 7:11 AM ABRASIVE GRINDER 06/01/2024 7:11 AM ABRASIVE GRINDER Narrative [facility] - 06/01/2024 9:56 PM ABRASIVE GRINDER FASTING:YES FASTING: YES Inez VELASCO LAB BLOOD ORDERABLES Final Result Performing Organization Address City/[facility] [address]/ZIP Co de Phone Number [facility] [place] [address] [place] [id number] * (ABNORMAL) COLONOSCOPY (05/26/2021) Historical Provider HEALTH MAINTENANCE Edited Result - Final * ThinPrep Gynecologic Pap Test (Image-guided), Liquid-based Preparation (08/03/2017 12:16 PM ABRASIVE GRINDER) CLINICAL INFORMATION [facility] HISTORICAL RESULTS Comment:Information not prov ided LMP: 07/19 [facility] HISTORICAL RESULTS PREV. PAP: [facility] HISTORICAL RESULTS Comment:MANY YEARS AGO PREV. BX: [facility] HISTORICAL RESULTS Comment:INFORMATION NOT PROV IDED SOURCE: [facility] HISTORICAL RESULTS Comment:Cervix, Endocervix STATEMENT OF ADEQUACY: [facility] HISTORICAL RESULTS Comment: Satisfactory for evaluation. Endocervical/transformation zone component present. INTERPRETATION/RESU LT: [facility] HISTORICAL RESULTS Comment:Negative for intraep ithelial lesion or malignancy. COMMENT: [facility] HISTORICAL RESULTS Comment: This Pap test has been evaluated with computer assisted technology. AUTO BODY DETAILER: [facility] HISTORICAL RESULTS Comment: YQ, CT(ASCP) CT screening location: [place] [address] [place] [id number] 08/03/2017 12:1 6 PM ABRASIVE GRINDER 08/09/2017 8:55 PM ABRASIVE GRINDER Narrative [facility] HISTORICAL RESULTS - 08/09/2017 8:41 PM ABRASIVE GRINDER 0 PERFORMING LAB: [facility] [address] [place] [id number] Mahi Mcmahon MD us Historical Provider LAB PATHOLOGY ORDERABLES Final Result Performing Organization Address City/[facility] [address]/ZIP Co de Phone Number [facility] HISTORICAL RESULTS from Last 3 Months or Most Recently Relevant to Health Maintenance Insurance IDPA [facility] MEDICARE ADVANTAGE [facility] MEDICARE ADVANTAGE [facility] MEDICARE ADVANTAGE Advance Directives For more information, please contact: [phone] * Full Code (Latest Code Status on File) Date Activated Date Inactivated Comments 05/29/2022 12:59 PM 05/30/2022 2:26 PM * Full Code Date Activated Date Inactivated Comments 05/28/2022 7:20 PM 05/29/2022 12:59 PM Care Teams Chicken Cleaner Relationship Specialty Start Date End Date Inez New PA [address] [place] [address] PCP - General 09/14/17 Candido Guerin MD [address] [place] [address] Consulting Physician Gastroenterology 05/04/23 Anthony Diez MD [address] [place] [address] Consulting Physician Rheumatology 09/18/24
--- OUTSIDE RECORDS SUMMARY | 2024-10-31 12:29 | XMS_ITS | Encounter Summary ---
Author Organization [facility] Facility Care Team Providers Care Car Salesman Name Role Phone Inez New Primary Care Provider [phone] Candido Guerin MD Unavailable [phone] Anthony Diez MD Unavailable [phone] Encounter Details Date Type Department Care Team (Latest Contact Info) Description 10/01/2016 Orders Only [facility] CLINCONV ProviderVishal MD [address] [place], [place] [id number] Social History Tobacco Use Types Packs/Day Years Used Date Smoking Tobacco: Never Assessed Comments Unknown Sex and Gender Information Value Date Recorded Sex Assigned at Not on file Legal Sex Female 4:54 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
--- OUTSIDE RECORDS SUMMARY | 2024-10-31 12:29 | XMS_ITS | Clinical Summary ---
Author Organization [facility] Address [address] [place] [address] Care Team Providers Care Physical Therapy Manager Name Role Phone Inez New Primary Care Provider [phone] Allergies No known active allergies Medications rosuvastatin [...] CDT - 09/28/2024 10:32 AM CDT Emergency [facility] [place] [address] Nyla Greer MD Gelbaltazar, Vandana Cortes MD [...] PM CDT COLONOSCOPY Routine 05/26/2021 5:23 AM NURSE CLINICAL from Last 3 Months or Most Recently Relevant to Health Maintenance Results * MRI BRAIN WO CON (09/28/2024 9:38 AM CDT) Anatomical Region Laterality Modality Head Magnetic Resonan ce 09/28/2024 9:47 AM CDT Impressions 09/28/2024 9:58 AM CDT IMPRESSION: Normal appearance of the brain. Ordered By: NYLA GREER Interpreted By: Cooper Kraft MD, 09/28/2024 9:47 AM Narrative 09/28/2024 9:58 AM CDT [place] [id number] EXAMINATION: MRI brain without contrast. EXAM DATE/TIME: [...] Procedure Note Cooper Kraft MD - 09/28/[address] [address] EXAMINATION: MRI brain without contrast. EXAM DATE/TIME: [...] 1:37 AM Narrative 09/28/2024 1:42 AM CDT [address] [address] EXAMINATION: CT HEAD WO CON CLINICAL HISTORY: [...] Procedure Note Kurtis Edwards MD - 09/28/[address] [address] EXAMINATION: CT HEAD WO CON CLINICAL HISTORY: [...] AMPHETAMINE (U) NEGATIVE NEGATIVE 12:17 AM CDT [facility] BARBITURATES SCREEN (U) NEGATIVE NEGATIVE 09/28/2024 12:17 AM CDT [facility] BENZODIAZEPINES SCREEN (U) NEGATIVE NEGATIVE 09/28/2024 12:17 AM CDT [facility] CANNABINOIDS SCREEN (U) NEGATIVE NEGATIVE 09/28/2024 12:17 AM CDT [facility] COCAINE METABOLITES (U) NEGATIVE NEGATIVE 09/28/2024 12:17 AM CDT [facility] METHADONE (U) NEGATIVE NEGATIVE 09/28/2024 12:17 AM CDT [facility] OPIATE SCREEN (U) NEGATIVE NEGATIVE 025 12:17 AM CDT [facility] PHENCYCLIDINE PCP (U) NEGATIVE NEGATIVE 09/28/2024 12:17 AM CDT [facility] Comment: NOTE: RESULTS OF THIS DRUG SCREEN SHOULD BE USED FOR MEDICAL PURPOSES ONLY AND NOT FOR LEGAL OR EMPLOYMENT PURPOSES. POSITIVE RESULTS ARE NOT CONFIRMED. MEDICATIONS CONTAINING EPHEDRINE MAY CAUSE FALSE POSITIVE AMPHETAMINE CALL [phone], LAB, TO REQUEST CONFIRMATION TESTING. IF CREATININE IS <40 mg/dL. RECOLLECTION IS SUGGESTED. AMPHETAMINE- 500 NG/ML BARBITURATE- 200 NG/ML BENZODIAZEPINES- 200 NG/ML THC- 50 NG/ML COCAINE- 150 NG/ML METHADONE- 300 NG/ML OPIATE- 300 MG/ML PCP- 25 NG/ML CREATININE (U) 25.6(L) 28 - 217 MG/DL 09/28/2024 12:17 AM CDT [facility] URINE SPECIMEN / Unknown 09/27/2024 11:55 PM CDT us Nyla Greer MD URINE ORDERABLES Lisa hernandez Result [facility] [address] [place] [address], * XR CHEST PORTABLE (09/27/2024 10:40 PM CDT) Anatomical Region Laterality Modality Chest Radiographic Jeanine ging 09/27/2024 10:5 7 PM CDT Impressions 09/27/2024 11:01 PM CDT IMPRESSION: 1. Moderate to large size retrocardiac hiatal hernia. 2. Mild atelectasis in bilateral lower lobes with no other acute pulmonary disease. Referred By: Interpreted By: Ladonna Bang MD, 09/27/2024 10:57 PM Narrative 09/27/2024 11:01 PM CDT [address] [address] EXAMINATION: XR Portable CXR, 1 View INDICATION: Trauma, fell down steps COMPARISON: CT chest, abdomen and pelvis with contrast 09/27/2024. FINDINGS: There is a moderate to large size retrocardiac hiatal hernia that is better seen on the comparison CT chest exam. hospital monitor leads overlie the chest and included upper abdomen. The cardiomediastinal silhouette is within normal limits. hospital monitor leads overlie the upper abdomen. Pulmonary vascularity is normal. There is mild atelectasis in bilateral lower lobes. Remaining lungs are clear with no acute infiltrate, consolidation, pneumothorax, or pleural effusion. No acute osseous abnormality. Procedure Note Ladonna Bang MD - 09/27/[address] [address] EXAMINATION: XR Portable CXR, 1 View INDICATION: Trauma, fell down steps COMPARISON: CT chest, abdomen and pelvis with contrast 09/27/2024. FINDINGS: There is a moderate to large size retrocardiac hiatal hernia that isbetter seen on the comparison CT chest exam. hospital monitor leadsoverlie the chest and included upper abdomen. The cardiomediastinalsilhouette is within normal limits. hospital monitor leads overlie theupper abdomen. Pulmonary vascularity [...] 10:2 2 PM CDT Narrative [facility] - 09/28/2024 5:52 AM CDT [facility] [address] Test Date: 2024-09-27 Pat Name: JEREMIAH GORDON Department: 41 Room: [place] [address] Gender: Female Water Systems Engineer: [id number] : 1970 Requested By: NYLA GREER Order Number: [id number] Reading : Jaz Hinton Measurements Intervals [place] Rate: 77 P: 53 CO: 171 QRS: -20 QRSD: 110 T: 22 QT: 418 QTc: 475 Interpretive Statements SINUS RHYTHM POSSIBLE LEFT ATRIAL ENLARGEMENT [-0.1mV P WAVE IN V1/V2] Compared to ECG 09/01/2018 20:34:51 Intraventricular conduction delay no longer present Procedure Note Jaz Hinton MD - 09/28/2024 [facility] [address] Test Date: 2024-09-27 Pat Name: JEREMIAH GORDON Department: 41 Room: [place] [address] Gender: Female Water Systems Engineer: [id number] : 1970 Requested By: NYLA GREER Order Number: [id number] Reading DMITRI Hinton Measurements Intervals [place] Rate: 77 P: 53 CO: 171 QRS: -20 QRSD: 110 T: 22 QT: 418 QTc: 475 Interpretive Statements SINUS RHYTHM POSSIBLE LEFT ATRIAL ENLARGEMENT [-0.1mV P WAVE IN V1/V2] Compared to ECG 09/01/2018 20:34:51 Intraventricular conduction delay no longer present us Nyla Greer MD ECG ORDERABLES Final Result [facility] ([facility] RAD * CT CHEST+ABD+PEL W CON [...] 10:20 PM Narrative 09/27/2024 10:40 PM CDT [address] [address] INDICATION: Trauma, pain, altered mental status COMPARISON: [...] Procedure Note Trey Montero MD - 09/27/[address] [address] INDICATION: Trauma, pain, altered mental status COMPARISON: [...] 10:37 PM Narrative 09/27/2024 10:40 PM CDT [place] [address] INDICATION: Trauma COMPARISON: None TECHNIQUE: Nonenhanced CT [...] Procedure Note Trey Montero MD - 09/27/2024 [place] [address] INDICATION: Trauma COMPARISON: None TECHNIQUE: Nonenhanced CT [...] METABOLIC PANEL (09/27/2024 9:48 PM CDT) Pathologist [facility] GLUCOSE 97 70 - 99 MG/DL 09/27/2024 10:59 PM CDT [facility] BUN 7 7 - 18 MG/DL 09/27/2024 10:59 PM CDT [facility] CREATININE S/P/B 0.58 0.55 - 1.02 MG/DL 09/27/2024 10:59 PM CDT [facility] SODIUM S/P/B 136 136 - 145 MMOL/L 09/27/2024 10:59 PM CDT [facility] POTASSIUM S/P/B 3.7 3.5 - 5.1 MMOL/L 09/27/2024 10:59 PM CDT [facility] CHLORIDE S/P/B 107 97 - 115 MMOL/L 09/27/2024 10:59 PM CDT [facility] CO2 22.5 21 - 32 MMOL/L 09/27/2024 10:59 PM CDT [facility] CALCIUM S/P/B 8.6 8.5 - 10.1 MG/DL 09/27/2024 10:59 PM CDT [facility] BILIRUBIN TOTAL S/P/B 0.4 0.2 - 1.2 MG/DL 09/27/2024 10:59 PM CDT [facility] Comment: THIS ASSAY IS NOT RECOMMENDED FOR PATIENTS UNDERGOING TREATMENT WITH ELTROMBOPAG DUE TO THE POTENTIAL FOR FALSELY ELEVATED RESULTS. TOTAL PROTEIN S/P/B 6.5 6.4 - 8.2 G/DL 09/27/2024 10:59 PM CDT [facility] ALBUMIN S/P/B 3.4 3.4 - 5.0 G/DL 09/27/2024 10:59 PM CDT [facility] AST 22 15 - 37 U/L 09/27/2024 10:59 PM CDT [facility] ALT 22 14 - 55 U/L 09/27/2024 10:59 PM CDT [facility] ALKALINE PHOSPHATASE S/P/B 70 50 - 136 U/L 09/27/2024 10:59 PM CDT [facility] ANION GAP 6.5 2 - 10 MMOL/L 09/27/2024 10:59 PM CDT [facility] BUN CREATININE RATIO 12.0 6 - 26 09/27/2024 10:59 PM CDT [facility] A/G RATIO 1.1 1.0 - 2.0 RATIO 09/27/2024 10:59 PM CDT [facility] GFR ESTIMATE >90 >90 ML/MIN/1.7 3 M2 09/27/2024 10:59 PM CDT [facility] Comment: NOTE: eGFR is not calculated for patients <18 years of age or gender unknown. This is an estimated GFR calculation using the new CKD EPI creatinine equation without race and so does not require a correction factor for race. This estimated GFR should not be used for calculating drug doses. 09/27/2024 9:48 PM CDT us Nyla Greer MD LABORATORY Final Result [facility] [address] [place] [address], * (ABNORMAL) CBC W/DIFF AUTOMATED (09/27/2024 9:48 PM CDT) [facility] WBC 9.28 4.5 - 11.0 x10'3/uL 09/27/2024 10:04 PM CDT [facility] RBC 4.32 4.20 - 5.40 x10'6/uL 09/27/2024 10:04 PM CDT [facility] HGB 13.9 12.0 - 16.0 G/DL 09/27/2024 10:04 PM CDT [facility] HCT 42.0 38.0 - 48.0 % 09/27/2024 10:04 PM CDT [facility] MCV 97.2 81.0 - 99.0 FL 09/27/2024 10:04 PM CDT [facility] MCH 32.2(H) 27.0 - 31.0 PG 09/27/2024 10:04 PM CDT [facility] MCHC 33.1 32.0 - 36.0 G/DL 09/27/2024 10:04 PM CDT [facility] RDW 14.4 11.5 - 14.5 % 09/27/2024 10:04 PM CDT [facility] PLT 269 130 - 400 x10'3/uL 09/27/2024 10:04 PM CDT [facility] MPV 9.1(L) 9.3 - 12.2 FL 09/27/2024 10:04 PM CDT [facility] DIFFERENTIAL TYPE AUTOMATED DIFFERENTIAL 09/27/2024 10:04 PM CDT [facility] NEUTROPHILS % 61.9 % 09/27/2024 10:04 PM CDT [facility] LYMPHOCYTES % 28.6 % 09/27/2024 10:04 PM CDT [facility] MONOCYTES % 6.7 % 09/27/2024 10:04 PM CDT [facility] EOSINOPHILS 2.0 % 09/27/2024 10:04 PM CDT [facility] BASOPHILS 0.3 % 09/27/2024 10:04 PM CDT [facility] IMMATURE GRANS % 0.5 % 09/28/19 10:04 PM CDT [facility] ABS. NEUTROPHILS 5.74 1.80 - 7.70 x10'3/uL 09/27/2024 10:04 PM CDT [facility] ABS. LYMPHOCYTES 2.65 1.00 - 4.80 x10'3/uL 09/27/2024 10:04 PM CDT [facility] ABS. MONOCYTES 0.62 0.24 - 0.86 x10'3/uL 09/27/2024 10:04 PM CDT [facility] ABS. EOSINOPHILS 0.19 0.04 - 0.36 x10'3/uL 09/27/2024 10:04 PM CDT [facility] ABS. BASOPHILS 0.03 0.01 - 0.08 x10'3/uL 09/27/2024 10:04 PM CDT [facility] ABS. IMMATURE GRANULOCYTES 0.05 0.00 - 0.49 x10'3/uL 09/27/2024 10:04 PM CDT [facility] 09/27/2024 9:48 PM CDT us Nyla Greer MD LABORATORY Final Result [facility] [address] [place] [address], * (ABNORMAL) ETHANOL (09/27/2024 9:48 PM CDT) ALCOHOL S/P/B 0.305(HH) <0.003 G/DL 09/27/2024 10:59 PM CDT [facility] Comment: Critical Result(s) Called at: 22:58:01 on 09/27/2024 by: MARQUIS ROSENBERG to and read back by:DEENA HARRIS 09/27/2024 9:48 PM CDT us Nyla Greer MD LABORATORY Final Result [facility] [address] [place] [address], from Last 3 Months Insurance MEDICAID [employer] Care Teams Physical Therapy Manager Relationship Specialty Start Date End Date Inez New PA [address] [place] [address] PCP - General PHYSICIAN ON SITE SOIL EVALUATOR 05/26/21
--- OUTSIDE RECORDS SUMMARY | 2024-10-31 12:29 | XMS_ITS | Encounter Summary ---
Author Organization [facility]/Health system Facility Care Team Providers Care Buttermaker Name Role Phone Inez New Primary Care Provider [phone] Candido Guerin MD Unavailable [phone] Anthony Diez MD Unavailable [phone] Encounter Details Date Type Department Care Team (Latest Contact Info) Description 09/26/2015 Orders Only [facility] CLINCONV ProviderVishal MD [address] [place], [place] [id number] Social History Tobacco Use Types Packs/Day Years Used Date Smoking Tobacco: Never Assessed Comments Unknown Sex and Gender Information Value Date Recorded Sex Assigned at Not on file Legal Sex Female 4:54 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
--- OUTSIDE RECORDS SUMMARY | 2024-10-31 12:29 | XMS_ITS | Clinical Summary ---
Author Organization [facility] Address [address] [place] [address] Care Team Providers Care Home Economist Name Role Phone Inez New Primary Care Provider [phone] Candido Guerin MD Unavailable [phone] Anthony Diez MD Unavailable [phone] Allergies No known active allergies Medications magnesium [...] 08/26/2024 Assessment & Plan (08/26/2024 4:47 PM ORANGE PEEL OPERATOR): This is a significant, separately identifiable problem [...] 08/26/2024 Assessment & Plan (08/26/2024 4:46 PM ORANGE PEEL OPERATOR): Encouraged healthy lifestyle, good nutrition and exercise. Encouraged Calcium and Vitamin D and weight bearing exercise for bone health. Reviewed immunizations Reviewed age appropirate screenings. Hypertension associated with diabetes 08/15/2024 Assessment & Plan (08/26/2024 4:38 PM ORANGE PEEL OPERATOR): Blood pressure still isn't perfectly controlled. Continue with the lisinopril 20. She has not been taking the propranolol so will switch to Bystolic 5 for a q.d. dosing and see how she does. Call in a week with readings. BMI 40.0-44.9, adult 06/11/2024 Assessment & Plan (08/15/2024 10:04 AM ORANGE PEEL OPERATOR): Discussed the patient's BMI. The BMI is above average. BMI management plan is completed. BMI Follow-up includes: nutrition counseling, exercise counseling and education provided. Assessment & Plan (08/01/2024 11:21 AM ORANGE PEEL OPERATOR): Discussed the patient's BMI. The BMI is above average. BMI management plan is completed. BMI Follow-up includes: nutrition counseling, exercise counseling and education provided. Assessment & Plan (06/11/2024 12:16 PM ORANGE PEEL OPERATOR): Discussed the patient's BMI. The BMI is above average. BMI management plan is completed. BMI Follow-up includes: nutrition counseling, exercise counseling and education provided. Elevated TSH 03/17/2024 Assessment & Plan (03/18/2024 8:08 PM CDT): Check labs Abnormal thyroid screen (blood) 03/17/2024 Type 2 diabetes mellitus wit hout complication, without long-term current use of insulin 03/17/2024 Assessment & Plan (08/26/2024 4:37 PM ORANGE PEEL OPERATOR): Stressed importance of continued A1c control to minimize the tank terminal gauger effects of diabetes. Bring accuchecks to office when instructed to do so. Check A1c about every 3-6 months. Take medication as prescribed. Get annual eye exam. Encouraged GLENDY/Statin if able to tolerate. Encouraged weight control and encouraged diabetic diet and exercise. Continue with metformin 500 el A1c is tightly controlled at 5.8 Assessment & Plan (08/13/2024 1:18 PM ORANGE PEEL OPERATOR): Stressed importance of continued A1c control to minimize the chcf effects of diabetes. Bring accuchecks to office when instructed to do so. Check A1c about every 3-6 months. Take medication as prescribed. Get annual eye exam. Encouraged GLENDY/Statin if able to tolerate. Encouraged weight control and encouraged diabetic diet and exercise. A1c is nicely controlled at 5.9. Continue metformin 500 mg Assessment & Plan (06/11/2024 12:15 PM ORANGE PEEL OPERATOR): Stressed importance of continued A1c control to minimize the chcf effects of diabetes. Bring accuchecks to office [...] Discussed with patient at length diabetes, pathogenesis, tank terminal gauger sequela, end organ damage, diet/exercise/weight loss, and [...] feet on a regular basis to avoid chcf problems. Offered referral to sales representative meats. Start metformin 500 mg 1 tablet daily [...] referral Assessment & Plan (09/07/2023 10:34 PM ORANGE PEEL OPERATOR): Ears are clear. Suspect eustachian tube dysfunction. Recommend Flonase, mucinex and antihistamine. If symptoms persist, may need ENT referral. Morbid obesity 07/22/2022 Assessment & Plan (08/26/2024 4:37 PM ORANGE PEEL OPERATOR): Discussed the patient's BMI. The BMI is above average. BMI management plan is completed. BMI Follow-up includes: nutrition counseling, exercise counseling and education provided. Assessment & Plan (08/01/2024 11:22 AM ORANGE PEEL OPERATOR): Discussed the patient's BMI. The BMI is above average. BMI management plan is completed. BMI Follow-up includes: nutrition counseling, exercise counseling and education provided. Assessment & Plan (06/11/2024 12:15 PM ORANGE PEEL OPERATOR): Discussed the patient's BMI. The BMI is above average. BMI management plan is completed. BMI Follow-up includes: nutrition counseling, exercise counseling and education provided. Assessment & Plan (03/18/2024 8:06 PM CDT): Discussed the patient's BMI. The BMI is above average. BMI management plan is completed. BMI Follow-up includes: nutrition counseling, exercise counseling and education provided. Assessment & Plan (09/07/2023 10:31 PM ORANGE PEEL OPERATOR): Discussed the patient's BMI. The BMI is above average. BMI management plan is completed. BMI Follow-up includes: nutrition counseling, exercise counseling and education provided. Patient has an obesity-related condition (not limited to: hypertension, obstructive sleep apnea, osteoarthritis, hyperlipidemia, diabetes, etc.). Therefore, morbid obesity may be documented for patients with a BMI between 35.00-39.99. Assessment & Plan (05/21/2023 3:46 PM ORANGE PEEL OPERATOR): Discussed the patient's BMI. The BMI is above average. BMI management plan is completed. BMI Follow-up includes: nutrition counseling, exercise counseling and education provided. Patient has an obesity-related condition (not limited to: hypertension, obstructive sleep apnea, osteoarthritis, hyperlipidemia, diabetes, etc.). Therefore, morbid obesity may be documented for patients with a BMI between 35.00-39.99. Assessment & Plan (07/22/2022 2:01 PM ORANGE PEEL OPERATOR): Discussed the patient's BMI. The BMI is above average. BMI management plan is completed. BMI Follow-up includes: nutrition counseling, exercise counseling and education provided. Patient has an obesity-related condition (not limited to: hypertension, obstructive sleep apnea, osteoarthritis, hyperlipidemia, diabetes, etc.). Therefore, morbid obesity may be documented for patients with a BMI between 35.00-39.99. Symptomatic anemia 05/28/2022 Assessment & Plan (09/07/2023 10:29 PM ORANGE PEEL OPERATOR): Known anemia. Has had transfusion. Continue to [...] Guajardo Assessment & Plan (06/14/2020 5:55 PM ORANGE PEEL OPERATOR): Refer back to Ortho. Offered PT. She [...] 09/11/2019 Assessment & Plan (06/11/2024 12:15 PM ORANGE PEEL OPERATOR): Mammogram order provided Assessment & Plan (08/23/2021 9:43 PM ORANGE PEEL OPERATOR): Mammogram order provided Assessment & Plan (09/26/2020 8:30 PM CDT): Mammogram order provided Assessment & Plan (09/11/2019 9:21 AM CDT): Mammogram order provided Sciatica of right side 06/17/2019 Assessment & Plan (06/17/2019 6:14 PM ORANGE PEEL OPERATOR): Voltaren gel Exercise/Start PT Followup if sxs worsen or don't improved. Vertigo 02/28/2019 Assessment & Plan (03/18/2024 8:06 PM CDT): Uses meclizine p.r.n. with good results Assessment & Plan (09/26/2020 8:29 PM CDT): antivert prn Assessment & Plan (03/15/2020 11:09 AM CDT): Persitent vertigo. 02/2020 CT head was essentially negative. She has finally agreed to vestibular therapy. Will still change neurology referral from [place] to [place] as patient able to arranage transportation easier. [...] 09/2018 Assessment & Plan (08/26/2024 4:36 PM ORANGE PEEL OPERATOR): Encouraged patient to follow low fat/low chol diet like the Mediterranean diet. Increase good fats in the diet. Increase exercise. Monitor labs as needed. Continue Crestor Assessment & Plan (08/13/2024 1:17 PM ORANGE PEEL OPERATOR): Encouraged patient to follow low fat/low chol diet like the Mediterranean diet. Increase good fats in the diet. Increase exercise. Monitor labs as needed. Continue Crestor Assessment & Plan (06/11/2024 11:51 AM ORANGE PEEL OPERATOR): Stressed importance of continued A1c control to minimize the tank terminal gauger effects of diabetes. Bring accuchecks to office [...] of continued A1c control to minimize the chcf effects of diabetes. Bring accuchecks to office [...] Crestor Assessment & Plan (09/07/2023 10:30 PM ORANGE PEEL OPERATOR): Encouraged patient to follow low fat/low chol diet like the Mediterranean diet. Increase good fats in the diet. Increase exercise. Monitor labs as needed. Continue with Crestor Assessment & Plan (05/21/2023 3:44 PM ORANGE PEEL OPERATOR): Encouraged patient to follow low fat/low chol diet like the Mediterranean diet. Increase good fats in the diet. Increase exercise. Monitor labs as needed. Continue Crestor Assessment & Plan (07/22/2022 1:49 PM ORANGE PEEL OPERATOR): Encouraged patient to follow low fat/low chol diet like the Mediterranean diet. Increase good fats in the diet. Increase exercise. Monitor labs as needed. Continue Crestor Assessment & Plan (08/23/2021 9:42 PM ORANGE PEEL OPERATOR): Encouraged patient to follow fat/low chol diet [...] 12/04/2018 Assessment & Plan (06/11/2024 12:15 PM ORANGE PEEL OPERATOR): Encouraged smoking cessation. Discussed 3 minutes. Reviewed options for assistance with cessation. Reviewed tank terminal gauger sequela associated with smoking. Pt declines assistance at this time but may contact the office at anytime for further help as they desire. Assessment & Plan (03/18/2024 8:05 PM CDT): Encouraged smoking cessation. Discussed 3 minutes. Reviewed options for assistance with cessation. Reviewed tank terminal gauger sequela associated with smoking. Pt declines assistance at this time but may contact the office at anytime for further help as they desire. Declines low-dose CT at this point Assessment & Plan (09/07/2023 10:30 PM ORANGE PEEL OPERATOR): Encouraged smoking cessation. Discussed 3 minutes. Reviewed options for assistance with cessation. Reviewed chcf sequela associated with smoking. Pt declines assistance at this time but may contact the office at anytime for further help as they desire. Assessment & Plan (07/22/2022 1:47 PM ORANGE PEEL OPERATOR): Encouraged smoking cessation. Discussed 3 minutes. Reviewed options for assistance with cessation. Reviewed tank terminal gauger sequela associated with smoking. Pt declines assistance at this time but may contact the office at anytime for further help as they desire. Assessment & Plan (08/23/2021 9:42 PM ORANGE PEEL OPERATOR): Encouraged smoking cessation. Discussed 3 minutes. Reviewed options for assistance with cessation. Reviewed tank terminal gauger sequela associated with smoking. Pt declines assistance at this time but may contact the office at anytime for further help as they desire. Assessment & Plan (04/08/2021 2:56 PM CDT): Encouraged smoking cessation. Discussed 3 minutes. Reviewed options for assistance with cessation. Reviewed chcf sequela associated with smoking. Pt declines assistance at this time but may contact the office at anytime for further help as they desire. Assessment & Plan (01/18/2021 11:39 PM CDT): Encouraged smoking cessation. Discussed 3 minutes. Reviewed options for assistance with cessation. Reviewed chcf sequela associated with smoking. Pt declines assistance at this time but may contact the office at anytime for further help as they desire. Assessment & Plan (09/26/2020 8:30 PM CDT): Encouraged smoking cessation. Discussed 3 minutes. Reviewed options for assistance with cessation. Reviewed chcf sequela associated with smoking. Pt declines assistance at this time but may contact the office at anytime for further help as they desire. Assessment & Plan (06/14/2020 5:55 PM ORANGE PEEL OPERATOR): Encouraged smoking cessation. Discussed 3 minutes. Reviewed options for assistance with cessation. Reviewed chcf sequela associated with smoking. Pt declines assistance at this time but may contact the office at anytime for further help as they desire. Assessment & Plan (03/15/2020 11:10 AM CDT): Encouraged smoking cessation. Discussed 3 minutes. Reviewed options for assistance with cessation. Reviewed tank terminal gauger sequela associated with smoking. Pt declines assistance [...] Reviewed options for assistance with cessation. Reviewed tank terminal gauger sequela associated with smoking. Pt declines assistance at this time but may contact the office at anytime for further help as they desire. Assessment & Plan (06/17/2019 6:16 PM ORANGE PEEL OPERATOR): Encouraged smoking cessation. Discussed 3 minutes. Reviewed options for assistance with cessation. Reviewed chcf sequela associated with smoking. Pt declines assistance at this time but may contact the office at anytime for further help as they desire. Assessment & Plan (01/30/2019 1:03 PM CDT): Encouraged smoking cessation. Discussed approx 3 minutes. Gastroesophageal reflux disease without esophagi tis 12/04/2018 Assessment & Plan (06/11/2024 12:15 PM ORANGE PEEL OPERATOR): Continue PPI Assessment & Plan (03/18/2024 8:05 PM CDT): Patient has been following closely with Dr. Guerin GI. She transferred and saw Dr. Nath and had an EGD done. States at this point her symptoms are pretty stable so will just continue to monitor continuing the Bentyl as needed and continue PPI p.r.n. Assessment & Plan (05/21/2023 3:44 PM ORANGE PEEL OPERATOR): Continue PPI p.r.n.. Continue per GI Assessment & Plan (07/22/2022 1:47 PM ORANGE PEEL OPERATOR): Continue per Dr. Guerin. She is currentl on omeprazole sucralfate. Will await his recommendations Assessment & Plan (08/23/2021 9:42 PM ORANGE PEEL OPERATOR): Continue PPI. She is unsure if the Dexilant will continue to be covered by her insurance so she will contact us with the letter she has at home with her options. Assessment & Plan (04/08/2021 2:55 PM CDT): Increased reflux symptoms. She is currently on Dexilant. Encouraged to continue with the same regimen. Will refer her to GI Dr. Zamora at [place] she is due for colonoscopy and may [...] 12/04/2018 Assessment & Plan (06/11/2024 12:15 PM ORANGE PEEL OPERATOR): Supplement Assessment & Plan (03/18/2024 8:06 PM CDT): Supplement Assessment & Plan (09/07/2023 10:30 PM ORANGE PEEL OPERATOR): Supplement Assessment & Plan (05/21/2023 3:44 PM ORANGE PEEL OPERATOR): Supplement Assessment & Plan (07/22/2022 1:47 PM ORANGE PEEL OPERATOR): Supplement Assessment & Plan (09/26/2020 8:14 PM CDT): supplement Assessment & Plan (09/11/2019 9:18 AM CDT): supplement Assessment & Plan (01/30/2019 1:02 PM CDT): supplement COPD (chronic obstructive pulmonary disease) 09/2018 Assessment & Plan (08/26/2024 4:37 PM ORANGE PEEL OPERATOR): COPD symptoms have been stable. Continue Breo and albuterol p.r.n. Assessment & Plan (08/13/2024 1:18 PM ORANGE PEEL OPERATOR): Continue with albuterol and Breo as breathing is stable Assessment & Plan (06/11/2024 12:15 PM ORANGE PEEL OPERATOR): Encouraged complete smoking cessation. Continue Breo and albuterol as needed Assessment & Plan (03/18/2024 8:06 PM CDT): Encouraged complete smoking cessation. Continue albuterol nebs and Breo as needed. Assessment & Plan (09/07/2023 10:30 PM ORANGE PEEL OPERATOR): Patient with COPD. Continue with albuterol and Breo. Assessment & Plan (05/21/2023 3:44 PM ORANGE PEEL OPERATOR): Continue Symbicort and albuterol p.r.n. continue Flonase Assessment & Plan (07/22/2022 1:47 PM ORANGE PEEL OPERATOR): Stressed smoking cessation. Continue Symbicort albuterol inhaler nebulizer p.r.n. Assessment & Plan (07/27/2021 7:15 AM ORANGE PEEL OPERATOR): Continues Symbicort/prn albuterol Still requires Neb Albuterol [...] basis as instructed. New prescription sent to [facility]. [id number] completed today Assessment & Plan (09/26/2020 8:14 PM CDT): Continue Symbicort and Albuterol prn Assessment & Plan (03/15/2020 11:10 AM CDT): Continue current regimen. Stop smoking Assessment & Plan (09/11/2019 9:18 AM CDT): STOP smoking. Continue with current regimen inhalers Albuterol/Symbicort Assessment & Plan (01/30/2019 12:54 PM CDT): Continue with Symbicort SHERRY (obstructive sleep apnea) 12/02/2018 Assessment & Plan (08/26/2024 4:36 PM ORANGE PEEL OPERATOR): Patient has been diagnosed with SHERRY. Awaiting titration study for treatment plan. Continue per Dr. Manuel Assessment & Plan (06/11/2024 11:43 AM ORANGE PEEL OPERATOR): Patient has established with Dr. Manuel. She had her sleep study test that did confirm sleep apnea. Awaiting the titration study Assessment & Plan (03/18/2024 8:03 PM CDT): Patient was diagnosed with sleep apnea at [facility] with Dr. Joseph. She would not wear the mask so sent the machine back. Has been untreated for many years. Continues to snore and have daytime sleepiness. Strongly encouraged re- evaluation. Willing to see Dr. Manuel at [facility]. Referral placed Assessment & Plan (09/07/2023 10:30 PM ORANGE PEEL OPERATOR): Continue with CPAP Assessment & Plan (07/22/2022 1:36 PM ORANGE PEEL OPERATOR): Continue CPAP Assessment & Plan (04/08/2021 2:56 [...] 12/02/2018 Assessment & Plan (08/13/2024 1:17 PM ORANGE PEEL OPERATOR): Continue to follow with Shakira in [facility] Dr. Etienne's office. She stopped her clonazepam [...] acutely. Assessment & Plan (06/11/2024 11:43 AM ORANGE PEEL OPERATOR): Continue per psychiatrist. She continues to take out her medications and they are updated on her chart Assessment & Plan (03/18/2024 8:04 PM CDT): Continue following with her psychiatrist for management of her mental health concerns. Assessment & Plan (09/07/2023 10:30 PM ORANGE PEEL OPERATOR): Continue per Psychiatry. Current medications include Klonopin Ingrezza Lexapro Vraylar 6 mg Lamictal and lithium Assessment & Plan (05/21/2023 3:45 PM ORANGE PEEL OPERATOR): Continue per psychiatrist Assessment & Plan (07/22/2022 1:45 PM ORANGE PEEL OPERATOR): Continue per psychiatrist. Patient states she is on clonazepam, latuda, Hydroxyzine, Cymbalta and Lexapro Assessment & Plan (08/23/2021 9:42 PM ORANGE PEEL OPERATOR): Per psychiatrist Assessment & Plan (04/08/2021 2:58 PM CDT): Continue per Psychiatry Assessment & Plan (06/14/2020 5:56 PM ORANGE PEEL OPERATOR): Unsure of exact diagnosis. Medication/treatment plan is [...] 08/26/2024 Assessment & Plan (08/13/2024 1:19 PM ORANGE PEEL OPERATOR): Advised patient it is difficult to know if she has true hypertension versus anxiety/panic. Recommend doing home readings and calling us in a couple of weeks with those readings. If she can not do them at home she can always come in but I know transportation is sometimes difficult. Need for influenza vaccination 06/11/2024 08/26/2024 Assessment & Plan (06/11/2024 12:16 PM ORANGE PEEL OPERATOR): Flu vaccine updated in the office today Annual physical exam 06/11/2024 025 Assessment & Plan (06/11/2024 12:16 PM ORANGE PEEL OPERATOR): Encouraged healthy lifestyle, good nutrition and exercise. [...] 03/17/2024 Assessment & Plan (09/07/2023 10:31 PM ORANGE PEEL OPERATOR): Encouraged healthy lifestyle, good nutrition and exercise. Encouraged Calcium and Vitamin D and weight bearing exercise for bone health. Reviewed immunizations. Reviewed age appropirate screenings. Medicare Wellness Documentation is completed within the chart BMI 38.0-38.9,adult 05/21/2023 09/07/19 24 Assessment & Plan (05/21/2023 3:46 PM ORANGE PEEL OPERATOR): Discussed the patient's BMI. The BMI is above average. BMI management plan is completed. BMI Follow-up includes: nutrition counseling, exercise counseling and education provided. BMI 39.0-39.9,adult 07/22/2022 05/04/20 23 Assessment & Plan (07/22/2022 1:48 PM ORANGE PEEL OPERATOR): Discussed the patient's BMI. The BMI is above average. BMI management plan is completed. BMI Follow-up includes: nutrition counseling, exercise counseling and education provided. Need for vaccination 07/22/2022 024 Assessment & Plan (05/21/2023 3:46 PM ORANGE PEEL OPERATOR): Flu vaccine updated in the office Assessment & Plan (07/22/2022 1:48 PM ORANGE PEEL OPERATOR): Flu vaccine at the office today Encounter for screening mamm ogram for malignant neoplasm of breast 07/22/2022 09/07/2023 Assessment & Plan (07/22/2022 1:48 PM ORANGE PEEL OPERATOR): Mammogram order provided Bloody diarrhea 04/08/2021 09/07/2023 [...] 09/07/2023 Assessment & Plan (07/22/2022 1:48 PM ORANGE PEEL OPERATOR): Encouraged healthy lifestyle, good nutrition and exercise. [...] 2016. Prefers to see a provider at [facility]. She is also having burning in the [...] 01/14/20212022 Assessment & Plan (08/23/2021 9:43 PM ORANGE PEEL OPERATOR): Obesity is unchanged. Discussed the patient's BMI. [...] 07/22/19 Assessment & Plan (07/27/2021 7:21 AM ORANGE PEEL OPERATOR): Obesity is unchanged. Discussed the patient's BMI. [...] of sxs. Check COVID test thru [facility] collection site in [place]. Treat sxs with Tylenol, Cough/cold medication otc [...] water often. If needed, use a hand lumber loader that contains at least 60% alcohol. Clean [...] 04/08/2021 Assessment & Plan (07/22/2020 11:47 AM ORANGE PEEL OPERATOR): Declines covid 19 testing at this time. Will start on ceftin 500mg bid x 7 days. She was advised to report to office if having otorrhea or worsening of symptoms. Need for immunization against influenza 06/14/2020 02/17/2021 Assessment & Plan (06/14/2020 5:57 PM ORANGE PEEL OPERATOR): Updated in office today BMI 37.0-37.9, adult 06/10/2020 024 Assessment & Plan (09/07/2023 10:31 PM ORANGE PEEL OPERATOR): Discussed the patient's BMI. The BMI is above average. BMI management plan is completed. BMI Follow-up includes: nutrition counseling, exercise counseling and education provided. Assessment & Plan (06/10/2020 1:35 PM ORANGE PEEL OPERATOR): Obesity is unchanged. Discussed the patient's BMI. The BMI is above average. BMI management plan is completed. BMI Follow-up includes: nutrition counseling, exercise counseling and education provided.Obesity is unchanged. Discussed the patient's BMI. Positive depression screening 06/10/2020 08/26/2024 Assessment & Plan (07/22/2020 11:47 AM ORANGE PEEL OPERATOR): Continue medication same Assessment & Plan (06/14/2020 5:56 PM ORANGE PEEL OPERATOR): Pt denies any suicidal or homicidal thoughts. [...] 03/17/2024 Assessment & Plan (09/07/2023 10:30 PM ORANGE PEEL OPERATOR): Probably multifactorial. Check labs and followup to re-evaluate Assessment & Plan (09/11/2019 9:21 AM CDT): Probably multifactorial. Check labs and followup to re-evaluate Hyperglycemia 09/11/2019 03/06/2024 Assessment & Plan (09/07/2023 10:30 PM ORANGE PEEL OPERATOR): Pre-diabetes/hyperglycemia is a precursor to Dm. Stressed [...] Type Department Care Team Description 10/30/2024 Telephone [facility] [address] Inez New [place] 10/15/2024 Telephone [facility] [address] [place] [address] Sandy Ramirez MA Successful Phone Call (MED [facility]HERENCE) 10/03/2024 Orders Only [facility] [address] [place] [address] Scanning, Provider 10/02/2024 Orders Only [facility] [address] [place] [address] Inez New [place] Enlarged liver (Primary Dx); Bile duct abnormality 09/28/2024 Telephone [facility] [address] [place] [address] Inez New [place] 09/27/2024 Orders Only [facility] [address] [place] [address] Inez New [place] 09/24/2024 Documentation [facility] Card[facility] [address] [place] [address] Tessie Rice MA 09/21/[address] [facility] Accountable Care Organization [address] [place] [id number] Antonella Costa Chart Review ([facility] Med Adherence ) 09/11/2024 Orders Only [facility] at [place] [address] [place] [address] Inez New [place] Need for RSV vaccination (Primary Dx) 09/05/2024 Orders Only [facility] Family Medicine [address] [place] [address] Inez New PA Positive HARRIETT (antinuclear antibody) (Primary Dx) 09/05/2024 Orders Only [facility] Family Medicine [address] [place] [address] Inez New PA Positive HARRIETT (antinuclear antibody) (Primary Dx) 09/04/2024 Results Follow-Up [address] [place] [address] Inez New PA 08/28/2024 Orders Only [address] [place] [address] Inez New PA Dizziness (Primary Dx); Persistent headaches 08/28/2024 Orders Only [address] [place] [address] Inez New PA Facial rash (Primary Dx) 08/24/2024 Orders Only [facility] [place] [facility] [address] [place] [address] Inez New PA 08/24/2024 Telephone [facility] Sleep Lab [address] [place] [address] Jeffy Manuel MD Cpap titration results / cpap order 08/23/2024 7:47 PM ORANGE PEEL OPERATOR - 08/23/2024 11:59 PM ORANGE PEEL OPERATOR Hospital Encounter [facility] Sleep Lab [address] [place] [address] SHERRY (obstructive sleep apnea) Discharge Disposition: Discharge to home or self care 08/23/[address] [place] [address] Inez New PA 08/23/[address] [place] [address] Inez New PA Medication Request 08/23/[address] [place] [address] Inez New PA 08/20/[address] [place] [address] Inez New PA 08/15/2024 10:00 AM ORANGE PEEL OPERATOR Office Visit [facility] Family Medicine [address] [address] Inez New PA Annual physical [...] Essential (primary) hypertension from Last 3 Months Immunizations Immunization Administration [...] on file Legal Sex Female 4:54 AM ORANGE PEEL OPERATOR Gender Identity Not on file Sexual Orientation Not on file Occupation Industry Job Start Date Job End Date Disabled Not on file Not on file Not on file Obstetrics History Last Filed Vital Signs Vital Sign Reading Time Taken Comments Blood Pressure 164/86 08/15/2024 10:04 AM ORANGE PEEL OPERATOR Pulse 85 08/15/2024 10:04 AM ORANGE PEEL OPERATOR Temperature 36.3 C (97.4 F) 08/15/2024 10:04 AM ORANGE PEEL OPERATOR Respiratory Rate 18 05/18/2024 9:37 AM ORANGE PEEL OPERATOR Oxygen Saturation 97% 08/15/2024 10:04 AM ORANGE PEEL OPERATOR Inhaled Oxygen Concentration - - Weight 105 kg (231 lb 6.4 oz) 08/15/2024 10:04 A M ORANGE PEEL OPERATOR Height 154.9 cm (5' 1 ) 08/15/2024 10:04 AM ORANGE PEEL OPERATOR Body Mass Index 43.72 08/15/2024 10:04 AM ORANGE PEEL OPERATOR Plan of Treatment Health Maintenance Due Date [...] 09/27/2024 HARRIETT TITER & PATTERN Routine 08/28/2024 1:17 PM ORANGE PEEL OPERATOR HARRIETT QUALITATIVE WITH REFLEX TO HARRIETT QUANTITATIVE Routine 08/28/2024 1:17 PM ORANGE PEEL OPERATOR Facial rash SCAN - PATHOLOGY 08/24/2024 GI - RESULT 08/24/2024 PSG (COMPLEX) Routine 08/23/2024 7:47 PM ORANGE PEEL OPERATOR SHERRY (obstructive sleep apnea) ECG 12-LEAD Routine 08/15/2024 10:46 AM ORANGE PEEL OPERATOR Elevated blood pressure reading SCREENING MAMMOGRAM BILATERAL W ALBERTO Schedule Routine, Read Routine (OP Routine) 08/08/2024 2:15 PM ORANGE PEEL OPERATOR Breast cancer screening by mammogram ALBUMIN CREATININE RATIO, URINE Routine 06/01/2024 7:12 AM ORANGE PEEL OPERATOR Type 2 diabetes mellitus with hyperlipidemia (HCC) COMPREHENSIVE METABOLIC PANEL Routine 06/01/2024 7:11 AM ORANGE PEEL OPERATOR Type 2 diabetes mellitus with hyperlipidemia (HCC) HEMOGLOBIN A1C Routine 06/01/2024 7:11 AM ORANGE PEEL OPERATOR Type 2 diabetes mellitus with hyperlipidemia (HCC) LIPID PANEL Routine 06/01/2024 7:11 AM ORANGE PEEL OPERATOR Hyperlipidemia, unspecified hyperlipidemia type HM COLONOSCOPY Routine 05/26/2021 THINPREP MAPPING PILOT PAP (IMAGE GUIDED) LIQUID-BASED PREP Routine 08/03/2017 12:16 PM ORANGE PEEL OPERATOR from Last 3 Months or Most Recently Relevant to Health Maintenance Results * SCAN - RADIOLOGY/IMAGING (10/03/2024) Anatomical Region Laterality Modality Other Provider Scanning Final Result * SCAN - RADIOLOGY/IMAGING (09/27/2024) Anatomical Region Laterality Modality Other Inez VELASCO Final Resu lt * (ABNORMAL) HARRIETT ab ql w/rflx to HARRIETT qn (08/28/2024 1:17 PM ORANGE PEEL OPERATOR) HARRIETT, qual POSITIVE( A) NEGATIVE Geodynamics[facility]lee Kaminski Comment: HARRIETT IFA is a first line screen for detecting the presence of up to approximately 150 autoantibodies in various autoimmune diseases. A positive HARRIETT IFA result is suggestive of autoimmune disease and reflexes to titer and pattern. Further laboratory testing may be considered if clinically indicated. For additional information, please refer to http://education.Locally/faq/WAB702 (This link is being provided for informational/ educational purposes only.) Blood 08/28/2024 1:17 PM ORANGE PEEL OPERATOR 08/28/2024 1:18 PM ORANGE PEEL OPERATOR Narrative [facility] - 08/30/2024 1:13 PM ORANGE PEEL OPERATOR FASTING:YES FASTING: YES Inez VELASCO LAB BLOOD ORDERABLES Final Result ESTELLA [facility] [address] [address] [address] * (ABNORMAL) Antinuclear Antibodies Titer and Pattern (08/28/2024 1:17 PM ORANGE PEEL OPERATOR) HARRIETT, quant 1:80(H) titer [facility] [...] AC-1: Homogeneous International Consensus on HARRIETT Patterns (https://doi.org/10.1515/alzu-9148-0221) 08/28/2024 1:17 PM ORANGE PEEL OPERATOR 08/28/2024 1:18 PM ORANGE PEEL OPERATOR Narrative [facility] - 08/30/2024 1:13 PM ORANGE PEEL OPERATOR FASTING:YES FASTING: YES Inez VELASCO LAB BLOOD ORDERABLES Final Result Performing Organization Address City/[facility]/ZIP Co de Phone Number [facility] [address] [place] [address] * GI - RESULT (08/24/2024) Anatomical Region Laterality Modality Other us Inez VELASCO Final Resu lt * SCAN - PATHOLOGY (08/24/2024) us Provider Scanning Final Result * PSG-Sleep Provider Use Only (08/23/2024 7:47 PM ORANGE PEEL OPERATOR) us Jeffy Manuel MD SLEEP CENTER ORDERABLES F inal Result [facility] [address] [place] [address] * ECG 12 lead (08/15/2024 10:46 AM ORANGE PEEL OPERATOR) Inez VELASCO ECG ORDERABLES Final Resu lt * Screening Mammogram Bilateral W Alberto (08/08/2024 2:15 PM ORANGE PEEL OPERATOR) Anatomical Region Laterality Modality Breast Bilateral Mammography Impressions 08/08/2024 2:15 PM ORANGE PEEL OPERATOR 1.No mammographic evidence of malignancy 2.Routine screening recommended for 1 year BI-RADS Category 1 Negative Inez VELASCO IMG MAMMO PROCEDURES Final Result * Albumin Creatinine Ratio, Urine (06/01/2024 7:12 AM ORANGE PEEL OPERATOR) Creatinine, ur 42 20 - 275 mg/dL [...] a diagnostic category. Urine 06/01/2024 7:12 AM ORANGE PEEL OPERATOR 06/01/2024 7:13 AM ORANGE PEEL OPERATOR Inez VELASCO LAB URINE ORDERABLES Final Result [facility] [address] [address] [address] * (ABNORMAL) Hemoglobin A1c (06/01/2024 7:11 AM ORANGE PEEL OPERATOR) Hgb A1C 5.9(H) <5.7 % of total [...] diabetes for children. Blood 06/01/2024 7:11 AM ORANGE PEEL OPERATOR 06/01/2024 7:11 AM ORANGE PEEL OPERATOR Narrative [facility] - 06/01/2024 9:56 PM ORANGE PEEL OPERATOR FASTING:YES FASTING: YES us Inez VELASCO LAB BLOOD ORDERABLES Final Result ESTELLA [facility] Hospital[facility] [address] [place] [address] * (ABNORMAL) Lipid panel (06/01/2024 7:11 AM ORANGE PEEL OPERATOR) [facility] Cholesterol 142 <200 mg/dL [facility] Jackson HDL 47(L) > OR = 50 mg/dL [facility] Triglycerides 124 <150 mg/dL [facility] LDL 74 mg/dL (calc) [facility] Jackson Comment: Reference range: <100 Desirable range <100 mg/dL for primary prevention; <70 mg/dL for patients with CHD or diabetic patients with > or = 2 CHD risk factors. LDL-C is now calculated using the Arley-Marito calculation, which is a validated novel method providing better accuracy than the Friedewald equation in the estimation of LDL-C. Arley COSTA et al. FRANKY. 2013;310(19): 5397-8921 (http://education.[employer]/faq/VEU697) Chol/HDL ratio 3.0 <5.0 (calc) Estella [facility] In[facility] NetworkEmerson Jackson Non-HDL, (LDL+VLDL) 95 <130 mg/dL (calc) Estella [facility] Wolf[facility]essenia Jackson Comment: For patients with diabetes plus 1 major ASCVD risk factor, treating to a non-HDL-C goal of <100 mg/dL (LDL-C of <70 mg/dL) is considered a therapeutic option. Blood 06/01/2024 7:11 AM ORANGE PEEL OPERATOR 06/01/2024 7:11 AM ORANGE PEEL OPERATOR Narrative [facility] - 06/01/2024 9:56 PM ORANGE PEEL OPERATOR FASTING:YES FASTING: YES Inez VELASCO LAB BLOOD ORDERABLES Final Result ESTELLA Jackson [address] [place] [address] * Comprehensive metabolic panel (06/01/2024 7:11 AM ORANGE PEEL OPERATOR) Pathologist [facility] Glucose 98 65 - 99 mg/dL Estella [facility] Jackson Comment: Fasting reference interval BUN 11 7 - 25 mg/dL Estella [facility]Emerson [place] Manuel Creatinine 0.75 0.50 - 1.03 mg/dL Estella [facility] shukri Jackson eGFR 95 > OR = 60 mL/min/1.7 3m2 Estella [facility] BUN/creat ratio SEE NOTE: 6 - 22 (calc) Estella [facility] Comment: Not Reported: BUN and Creatinine [...] Alb/glob ratio 2.1 1.0 - 2.5 (calc) [facility] Bilirubin, total 0.6 0.2 - 1.2 mg/dL [facility] Alk phos 69 37 - 153 U/L [facility] Manuel AST 24 10 - 35 U/L [facility] Jackson ALT (SGPT) 21 6 - 29 U/L [facility] shukri Manuel Blood 06/01/2024 7:11 AM ORANGE PEEL OPERATOR 06/01/2024 7:11 AM ORANGE PEEL OPERATOR Narrative [facility] - 06/01/2024 9:56 PM ORANGE PEEL OPERATOR FASTING:YES FASTING: YES Result [facility] Inez VELASCO LAB BLOOD ORDERABLES Final Result [facility] [place] [address] [place] [address] * (ABNORMAL) COLONOSCOPY (05/26/2021) Historical Provider HEALTH MAINTENANCE Edited Result - Final * ThinPrep Gynecologic Pap Test (Image-guided), Liquid-based Preparation (08/03/2017 12:16 PM ORANGE PEEL OPERATOR) CLINICAL INFORMATION [facility] HISTORICAL RESULTS Comment:Information not prov ided LMP: 07/19 [facility] HISTORICAL RESULTS PREV. PAP: [facility] HISTORICAL RESULTS Comment:MANY YEARS AGO PREV. BX: [facility] HISTORICAL RESULTS Comment:INFORMATION NOT PROV IDED SOURCE: [facility] HISTORICAL RESULTS Comment:Cervix, Endocervix STATEMENT OF ADEQUACY: [facility] HISTORICAL RESULTS Comment: Satisfactory for evaluation. Endocervical/transformation zone component present. INTERPRETATION/RESU LT: [facility] HISTORICAL RESULTS Comment:Negative for intraep ithelial lesion or malignancy. COMMENT: [facility] HISTORICAL RESULTS Comment: This Pap test has been evaluated with computer assisted technology. PURCHASING ADMINISTRATOR: [facility] HISTORICAL RESULTS Comment: YQ, CT(ASCP) CT screening location: [place] [address] [place] [address] 08/03/2017 12:1 6 PM ORANGE PEEL OPERATOR 08/09/2017 8:55 PM ORANGE PEEL OPERATOR Narrative [facility] HISTORICAL RESULTS - 08/09/2017 8:41 PM ORANGE PEEL OPERATOR 0 PERFORMING LAB: ROG[facility] [place] [address] [place] [address] Mahi Mcmahon MD Result [facility] Historical Provider LAB PATHOLOGY ORDERABLES Final Result Performing Organization Address City/[facility]/ZIP Co de Phone Number [facility] HISTORICAL RESULTS from Last 3 Months or Most Recently Relevant to Health Maintenance Insurance [employer] [facility] MEDICARE ADVANTAGE [facility] MEDICARE ADVANTAGE [facility] MEDICARE ADVANTAGE Advance Directives For more information, please contact: [phone] * Full Code (Latest Code Status on File) Date Activated Date Inactivated Comments 05/29/2022 12:59 PM 05/30/2022 2:26 PM * Full Code Date Activated Date Inactivated Comments 05/28/2022 7:20 PM 05/29/2022 12:59 PM Care Teams Home Economist Relationship Specialty Start Date End Date Inez New PA [address] [place] [address] PCP - General 09/14/17 Candido Guerin MD [address] [place] [address] Consulting Physician Gastroenterology 05/04/23 Anthony Diez MD [address] [place] [address] Consulting Physician Rheumatology 09/18/24
--- OUTSIDE RECORDS SUMMARY | 2024-10-31 12:29 | XMS_ITS | Encounter Summary ---
Author Organization [facility] Healthcare Address [address] [place] [address] Care Team Providers Care Director Of Claims Name Role Phone Inez New Primary Care Provider [phone] Candido Guerin MD Unavailable [phone] Anthony Diez MD Unavailable [phone] Encounter Details Date Type Department Care Team (Late st Contact Info) Description 10/03/2024 Orders Only [facility] Health Information Management [address] [place] [address] Scanning, Provider Social History Tobacco Use Types [...] on file Legal Sex Female 4:54 AM RAND TACKER Gender Identity Not on file Sexual Orientation [...] on filedocumented in this encounter Care Teams Director Of Claims Relationship Specialty Start Date End Date Inez New PA [address] [place] [address] PCP - General 09/14/17 Candido Guerin MD [address] [place] [address] Consulting Physician Gastroenterology 05/04/23 Anthony Diez MD [address] [place] [address] Consulting Physician Rheumatology 09/18/24 documented as of this encounter
--- OUTSIDE RECORDS SUMMARY | 2024-10-31 12:29 | XMS_ITS | Encounter Summary ---
Author Organization [facility] Facility Care Team Providers Care Lath Hand Name Role Phone Inez New Primary Care Provider [phone] Candido Guerin MD Unavailable [phone] Anthony Diez MD Unavailable [phone] Encounter Details Date Type Department Care Team (Latest Contact Info) Description 10/07/2017 Orders Only [facility] ProviderVishal MD [address] [place] [address] Social History Tobacco Use Types Packs/Day Years Used Date Smoking Tobacco: Never Assessed Comments Unknown Sex and Gender Information Value Date Recorded Sex Assigned at Not on file Legal Sex Female 4:54 AM SEED SERVICE ADVISOR Gender Identity Not on file Sexual Orientation [...] documented as of this encounter Care Teams Lath Hand Relationship Specialty Start Date End Date Inez New PA [address] [place] [address] PCP - General 09/14/17 Candido Guerin MD [address] [place] [address] Consulting Physician Gastroenterology 05/04/23 Anthony Diez MD [address] [place] [address] Consulting Physician Rheumatology 09/18/24 documented as of this encounter
--- OUTSIDE RECORDS SUMMARY | 2024-10-31 12:29 | XMS_ITS ---
Author Organization [facility] Address [facility] [address] Care Team Providers Care Coin Machine Assembler Name Role Phone Rachell New PA-C Primary Care Provider Unav Kacy Hunt Unavailable [phone] Ale [place] Unavailable [phone] REASON FOR VISIT Therapy Visit Social History Sex Assigned At : Social History Observation Description Sex Assigned At Female Encounters Encounter Location Date Provider [facility] [place] [id number] [address] 10/15/2024 Ale Ramirez Plan Of Treatment Next Appt Details Provider Name:Ale Ramirez, 11/16/2024 08:00:00 AM, [address] [facility], [address], [address], Provider Name:Kacy brown, 11/19/2024 09:00:00 AM, [address] [facility], [address], [address], Provider Name:Ale Ramirez, 12/20/2024 08:00:00 AM, [address], [address], Progress Notes * NGUYỄN RUCKER:1970 ( 54 yo F)Acc No.[id number]:10/15/2024 Patient: JEREMIAH MERCADO Provider: Sebastian RAMIREZ LCSW :1970 A ge:54 Y S ex:Female Date:10/15/2024 Address:[address] [place] [address] Pcp:Rachell New PA-C Data: * Chief Complaints: * 1 . Therapy Visit. Assessment: Plan: * Treatment: * Billing Information: * Visit Code: * Procedure Codes: * Electronic signature of Roberta Ramirez LCSW on 10/31/2024 at 12:28 PM CDT Sign off status: Pending Signatures: No Ad Hoc Signature Added * Provider: Sebastian RAMIREZ LCSW Date: 0 10/15/2024 Generated for Verna callahan/Katia/Avila on: 10/31/2024 12:28 PM CDT
--- OUTSIDE RECORDS SUMMARY | 2024-10-31 12:29 | XMS_ITS | Patient Health Record ---
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 anxiety with panic attacks, particularly during car rides. Reports some improvement with current management. Using propranolol and urix-amt-hwfaqgn anxiety patches (Blaise patches with Ashwagandha and [...] use - Consider prazosin for nightmares, pending trap puller approval due to potential blood pressure effects [...] and blood pressure at home - Obtain trap puller's input on psychiatric medications that may affect [...] family stressors and being alone, leading to cod clerk visits and hospitalizations. - Plan: - Continue [...] - Plan: - Continue therapy sessions with ACTIVITIES COORDINATOR - Explore trauma-focused therapies (e.g., EMDR) to [...] - Plan: - Proceed with the scheduled furniture refinisher appointment on the for further evaluation and management. Weight Loss, Poor Appetite, and Vomiting - Assessment: The patient reports losing weight, not eating much, experiencing dry heaves, and frequent vomiting. - Plan: - Monitor the patient's weight and nutritional intake. - Consider referral to a first mate for dietary guidance and support. - Evaluate [...] Recommend the patient to consult with a industrial nurse for further evaluation and potential diagnosis. - [...] Details Provider Name:Ale Nelson, 11/16/2024 08:00:00 AM, [address], [address], [address], Provider Name:Kacy brown, 11/19/2024 09:00:00 AM, [address], [facility] [address], [address], Provider Name:Ale Nelson, 12/20/2024 08:00:00 AM, [address], [facility] [address], [address], Insurance Providers Payer Name Payer Address Payer Phone Subscriber Number Group Number Insured Name Patient Relationship to Insured Coverage Start Date Coverage End Date [facility] [address] [place] [address] [id number] JEREMIAH RUCKER Self - patient is the insured [place] [address] [address] [place] [address] [id number] JEREMIAH RUCKER Self - patient is the [...]
--- OUTSIDE RECORDS SUMMARY | 2024-10-31 12:29 | XMS_ITS | Encounter Summary ---
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
--- OUTSIDE RECORDS SUMMARY | 2024-10-31 12:29 | XMS_ITS | Encounter Summary ---
Author Organization [facility] Healthcare Address [address] [place] [address] Care Team Providers Care Optometry Assistant Name Role Phone Inez New Primary Care Provider + [phone] Candido Guerin MD Unavailable [phone] Anthony Diez MD Unavailable [phone] Encounter Details Date Type Department Care Team (Late st Contact Info) Description 09/04/2024 Results Follow-Up [facility] Family Medicine [address] [place] [address] Inez New PA [address] [address] Social History Tobacco Use Types [...] on file 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 Gender Identity Not on file Sexual Orientation Not on file Occupation Industry Job Start Date Job End Date Disabled Not on file Not on file Not on file documented as of this encounter Plan of Treatment Not on file documented as of this encounter Visit Diagnoses Not on filedocumented in this encounter Care Teams Optometry Assistant Relationship Specialty Start Date End Date Inez New PA [address] [place] [address] PCP - General 09/14/17 Candido Guerin MD [address] [place] [address] Consulting Physician Gastroenterology 05/04/23 Anthony Diez MD [address] [place] [address] Consulting Physician Rheumatology 09/18/24 documented as of this encounter
--- OUTSIDE RECORDS SUMMARY | 2024-10-31 12:29 | XMS_ITS | Encounter Summary ---
Author Organization [facility] Healthcare Address [address] [place] [address] Care Team Providers Care Sampling Expert Name Role Phone Inez New Primary Care Provider + [phone] Candido Guerin MD Unavailable [phone] Anthony Diez MD Unavailable [phone] Encounter Details Date Type Department Care Team (Late st Contact Info) Description 10/30/2024 Telephone [facility] Family Medicine [address] [place] [address] Inez New [place] [address] [place] [address] Social History Tobacco Use Types Packs/Day [...] on file 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 Gender Identity Not on file Sexual Orientation Not on file Occupation Industry Job Start Date Job End Date Disabled Not on file Not on file Not on file documented as of this encounter Miscellaneous Notes * Telephone Encounter - Jody Méndez - 10/30/2024 7:58 AM CDT Pt was seen at [facility] on 10/29/24 for: Diarrhea Pt discharged with no new medications See Attached Notes Staff will f/u with pt documented in this encounter Plan of Treatment Not on file documented as of this encounter Visit Diagnoses Not on filedocumented in this encounter Care Teams Sampling Expert Relationship Specialty Start Date End Date Inez New PA [address] [place] [address] PCP - General 09/14/17 Candido Guerin MD [address] [place] [address] Consulting Physician Gastroenterology 05/04/23 Anthony Diez MD [address] [place] [address] Consulting Physician Rheumatology 09/18/24 documented as of this encounter
== END 2024-10-31 10:57 | disposition home or self-care (01) ==
PROVIDERS: PCP Physician Assistant; Visit Provider Nurse Practitioner Family
DX: R63.4 Abnormal weight loss (principal); K21.9 Gastro-esophageal reflux disease without esophagitis; R11.14 Bilious vomiting
CPT/HCPCS: 78226; A9537

== ENCOUNTER 2024-10-31 13:32 | Outpatient (CLI) | payer MEDICARE, MEDICAID, SELFPAY ==
[2024-10-31 14:10] LABS: Hematocrit 43.9 % (37.0-47.0); Hemoglobin 14.2 g/dL (12.0-15.0); Mean Corpuscular HGB Conc 32.3 g/dl (32-36); Mean Corpuscular Volume 102.1 fl (80-100); Mean Platelet Volume 9.2 fl (7.4-10.4); Platelet Count Result 239 k/mm3 (150-375); Red Cell Distribution Width 14.3 % (11.5-14.5); White Blood Count 9.7 K/mm3 (4.5-10.0)
--- OUTSIDE RECORDS SUMMARY | 2024-10-31 14:25 | XMS_ITS | Encounter Summary ---
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
--- OUTSIDE RECORDS SUMMARY | 2024-10-31 14:25 | XMS_ITS | Clinical Summary ---
Author Organization [facility] [place] [address] [facility] Address [address] [place] [address] Care Team Providers Care Doctor Assistant Name Role Phone Inez New Primary Care Provider [phone] Candido Guerin MD Unavailable [phone] Anthony Diez MD Unavailable Allergies No known active allergies Medications magnesium [...] 08/26/2024 Assessment & Plan (08/26/2024 4:47 PM RESERVES CLERK): This is a significant, separately identifiable problem [...] 08/26/2024 Assessment & Plan (08/26/2024 4:46 PM RESERVES CLERK): Encouraged healthy lifestyle, good nutrition and exercise. Encouraged Calcium and Vitamin D and weight bearing exercise for bone health. Reviewed immunizations Reviewed age appropirate screenings. Hypertension associated with diabetes 08/15/2024 Assessment & Plan (08/26/2024 4:38 PM RESERVES CLERK): Blood pressure still isn't perfectly controlled. Continue with the lisinopril 20. She has not been taking the propranolol so will switch to Bystolic 5 for a q.d. dosing and see how she does. Call in a week with readings. BMI 40.0-44.9, adult 06/11/2024 Assessment & Plan (08/15/2024 10:04 AM RESERVES CLERK): Discussed the patient's BMI. The BMI is above average. BMI management plan is completed. BMI Follow-up includes: nutrition counseling, exercise counseling and education provided. Assessment & Plan (08/01/2024 11:21 AM RESERVES CLERK): Discussed the patient's BMI. The BMI is above average. BMI management plan is completed. BMI Follow-up includes: nutrition counseling, exercise counseling and education provided. Assessment & Plan (06/11/2024 12:16 PM RESERVES CLERK): Discussed the patient's BMI. The BMI is above average. BMI management plan is completed. BMI Follow-up includes: nutrition counseling, exercise counseling and education provided. 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 Bring accuchecks to office when instructed to do so. Check A1c about every 3-6 months. Take medication as prescribed. Get annual eye exam. Encouraged GLENDY/Statin if able to tolerate. Encouraged weight control and encouraged diabetic diet and exercise. Continue with metformin 500 el A1c is tightly controlled at 5.8 Assessment & Plan (08/13/2024 1:18 PM RESERVES CLERK): Stressed importance of continued A1c control to minimize the halfway effects of diabetes. Bring accuchecks to office when instructed to do so. Check A1c about every 3-6 months. Take medication as prescribed. Get annual eye exam. Encouraged GLENDY/Statin if able to tolerate. Encouraged weight control and encouraged diabetic diet and exercise. A1c is nicely controlled at 5.9. Continue metformin 500 mg Assessment & Plan (06/11/2024 12:15 PM RESERVES CLERK): Stressed importance of continued A1c control to minimize the halfway effects of diabetes. Bring accuchecks to office [...] Discussed with patient at length diabetes, pathogenesis, dedicated intermodal truck driver sequela, end organ damage, diet/exercise/weight loss, and [...] feet on a regular basis to avoid halfway problems. Offered referral to petroleum geology faculty member. Start metformin 500 mg 1 tablet daily [...] referral Assessment & Plan (09/07/2023 10:34 PM RESERVES CLERK): Ears are clear. Suspect eustachian tube dysfunction. Recommend Flonase, mucinex and antihistamine. If symptoms persist, may need ENT referral. Morbid obesity 07/22/2022 Assessment & Plan (08/26/2024 4:37 PM RESERVES CLERK): Discussed the patient's BMI. The BMI is above average. BMI management plan is completed. BMI Follow-up includes: nutrition counseling, exercise counseling and education provided. Assessment & Plan (08/01/2024 11:22 AM RESERVES CLERK): Discussed the patient's BMI. The BMI is above average. BMI management plan is completed. BMI Follow-up includes: nutrition counseling, exercise counseling and education provided. Assessment & Plan (06/11/2024 12:15 PM RESERVES CLERK): Discussed the patient's BMI. The BMI is above average. BMI management plan is completed. BMI Follow-up includes: nutrition counseling, exercise counseling and education provided. Assessment & Plan (03/18/2024 8:06 PM CDT): Discussed the patient's BMI. The BMI is above average. BMI management plan is completed. BMI Follow-up includes: nutrition counseling, exercise counseling and education provided. Assessment & Plan (09/07/2023 10:31 PM RESERVES CLERK): Discussed the patient's BMI. The BMI is above average. BMI management plan is completed. BMI Follow-up includes: nutrition counseling, exercise counseling and education provided. Patient has an obesity-related condition (not limited to: hypertension, obstructive sleep apnea, osteoarthritis, hyperlipidemia, diabetes, etc.). Therefore, morbid obesity may be documented for patients with a BMI between 35.00-39.99. Assessment & Plan (05/21/2023 3:46 PM RESERVES CLERK): Discussed the patient's BMI. The BMI is above average. BMI management plan is completed. BMI Follow-up includes: nutrition counseling, exercise counseling and education provided. Patient has an obesity-related condition (not limited to: hypertension, obstructive sleep apnea, osteoarthritis, hyperlipidemia, diabetes, etc.). Therefore, morbid obesity may be documented for patients with a BMI between 35.00-39.99. Assessment & Plan (07/22/2022 2:01 PM RESERVES CLERK): Discussed the patient's BMI. The BMI is above average. BMI management plan is completed. BMI Follow-up includes: nutrition counseling, exercise counseling and education provided. Patient has an obesity-related condition (not limited to: hypertension, obstructive sleep apnea, osteoarthritis, hyperlipidemia, diabetes, etc.). Therefore, morbid obesity may be documented for patients with a BMI between 35.00-39.99. Symptomatic anemia 05/28/2022 Assessment & Plan (09/07/2023 10:29 PM RESERVES CLERK): Known anemia. Has had transfusion. Continue to [...] Guajardo Assessment & Plan (06/14/2020 5:55 PM RESERVES CLERK): Refer back to Ortho. Offered PT. She [...] 09/11/2019 Assessment & Plan (06/11/2024 12:15 PM RESERVES CLERK): Mammogram order provided Assessment & Plan (08/23/2021 9:43 PM RESERVES CLERK): Mammogram order provided Assessment & Plan (09/26/2020 8:30 PM CDT): Mammogram order provided Assessment & Plan (09/11/2019 9:21 AM CDT): Mammogram order provided Sciatica of right side 06/17/2019 Assessment & Plan (06/17/2019 6:14 PM RESERVES CLERK): Voltaren gel Exercise/Start PT Followup if sxs worsen or don't improved. Vertigo 02/28/2019 Assessment & Plan (03/18/2024 8:06 PM CDT): Uses meclizine p.r.n. with good results Assessment & Plan (09/26/2020 8:29 PM CDT): antivert prn Assessment & Plan (03/15/2020 11:09 AM CDT): Persitent vertigo. 02/2020 CT head was essentially negative. She has finally agreed to vestibular therapy. Will still change neurology referral from [place] to [place] as patient able to arranage transportation easier. [...] 09/2018 Assessment & Plan (08/26/2024 4:36 PM RESERVES CLERK): Encouraged patient to follow low fat/low chol diet like the Mediterranean diet. Increase good fats in the diet. Increase exercise. Monitor labs as needed. Continue Crestor Assessment & Plan (08/13/2024 1:17 PM RESERVES CLERK): Encouraged patient to follow low fat/low chol diet like the Mediterranean diet. Increase good fats in the diet. Increase exercise. Monitor labs as needed. 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 Bring accuchecks to office [...] of continued A1c control to minimize the halfway effects of diabetes. Bring accuchecks to office [...] Crestor Assessment & Plan (09/07/2023 10:30 PM RESERVES CLERK): Encouraged patient to follow low fat/low chol diet like the Mediterranean diet. Increase good fats in the diet. Increase exercise. Monitor labs as needed. Continue with Crestor Assessment & Plan (05/21/2023 3:44 PM RESERVES CLERK): Encouraged patient to follow low fat/low chol diet like the Mediterranean diet. Increase good fats in the diet. Increase exercise. Monitor labs as needed. Continue Crestor Assessment & Plan (07/22/2022 1:49 PM RESERVES CLERK): Encouraged patient to follow low fat/low chol diet like the Mediterranean diet. Increase good fats in the diet. Increase exercise. Monitor labs as needed. Continue Crestor Assessment & Plan (08/23/2021 9:42 PM RESERVES CLERK): Encouraged patient to follow fat/low chol diet [...] 12/04/2018 Assessment & Plan (06/11/2024 12:15 PM RESERVES CLERK): Encouraged smoking cessation. Discussed 3 minutes. Reviewed options for assistance with cessation. Reviewed dedicated intermodal truck driver sequela associated with smoking. Pt declines assistance at this time but may contact the office at anytime for further help as they desire. Assessment & Plan (03/18/2024 8:05 PM CDT): Encouraged smoking cessation. Discussed 3 minutes. Reviewed options for assistance with cessation. Reviewed dedicated intermodal truck driver sequela associated with smoking. Pt declines assistance at this time but may contact the office at anytime for further help as they desire. Declines low-dose CT at this point Assessment & Plan (09/07/2023 10:30 PM RESERVES CLERK): Encouraged smoking cessation. Discussed 3 minutes. Reviewed options for assistance with cessation. Reviewed halfway sequela associated with smoking. Pt declines assistance at this time but may contact the office at anytime for further help as they desire. Assessment & Plan (07/22/2022 1:47 PM RESERVES CLERK): Encouraged smoking cessation. Discussed 3 minutes. Reviewed options for assistance with cessation. Reviewed dedicated intermodal truck driver sequela associated with smoking. Pt declines assistance at this time but may contact the office at anytime for further help as they desire. Assessment & Plan (08/23/2021 9:42 PM RESERVES CLERK): Encouraged smoking cessation. Discussed 3 minutes. Reviewed options for assistance with cessation. Reviewed dedicated intermodal truck driver sequela associated with smoking. Pt declines assistance at this time but may contact the office at anytime for further help as they desire. Assessment & Plan (04/08/2021 2:56 PM CDT): Encouraged smoking cessation. Discussed 3 minutes. Reviewed options for assistance with cessation. Reviewed halfway sequela associated with smoking. Pt declines assistance at this time but may contact the office at anytime for further help as they desire. Assessment & Plan (01/18/2021 11:39 PM CDT): Encouraged smoking cessation. Discussed 3 minutes. Reviewed options for assistance with cessation. Reviewed halfway sequela associated with smoking. Pt declines assistance at this time but may contact the office at anytime for further help as they desire. Assessment & Plan (09/26/2020 8:30 PM CDT): Encouraged smoking cessation. Discussed 3 minutes. Reviewed options for assistance with cessation. Reviewed halfway sequela associated with smoking. Pt declines assistance at this time but may contact the office at anytime for further help as they desire. Assessment & Plan (06/14/2020 5:55 PM RESERVES CLERK): Encouraged smoking cessation. Discussed 3 minutes. Reviewed options for assistance with cessation. Reviewed halfway sequela associated with smoking. Pt declines assistance at this time but may contact the office at anytime for further help as they desire. Assessment & Plan (03/15/2020 11:10 AM CDT): Encouraged smoking cessation. Discussed 3 minutes. Reviewed options for assistance with cessation. Reviewed dedicated intermodal truck driver sequela associated with smoking. Pt declines assistance [...] Reviewed options for assistance with cessation. Reviewed dedicated intermodal truck driver sequela associated with smoking. Pt declines assistance at this time but may contact the office at anytime for further help as they desire. Assessment & Plan (06/17/2019 6:16 PM RESERVES CLERK): Encouraged smoking cessation. Discussed 3 minutes. Reviewed options for assistance with cessation. Reviewed halfway sequela associated with smoking. Pt declines assistance at this time but may contact the office at anytime for further help as they desire. Assessment & Plan (01/30/2019 1:03 PM CDT): Encouraged smoking cessation. Discussed approx 3 minutes. Gastroesophageal reflux disease without esophagi tis 12/04/2018 Assessment & Plan (06/11/2024 12:15 PM RESERVES CLERK): Continue PPI Assessment & Plan (03/18/2024 8:05 PM CDT): Patient has been following closely with Dr. Guerin GI. She transferred and saw Dr. Nath and had an EGD done. States at this point her symptoms are pretty stable so will just continue to monitor continuing the Bentyl as needed and continue PPI p.r.n. Assessment & Plan (05/21/2023 3:44 PM RESERVES CLERK): Continue PPI p.r.n.. Continue per GI Assessment & Plan (07/22/2022 1:47 PM RESERVES CLERK): Continue per Dr. Guerin. She is currentl on omeprazole sucralfate. Will await his recommendations Assessment & Plan (08/23/2021 9:42 PM RESERVES CLERK): Continue PPI. She is unsure if the Dexilant will continue to be covered by her insurance so she will contact us with the letter she has at home with her options. Assessment & Plan (04/08/2021 2:55 PM CDT): Increased reflux symptoms. She is currently on Dexilant. Encouraged to continue with the same regimen. Will refer her to GI Dr. Zamora at [place] she is due for colonoscopy and may [...] 12/04/2018 Assessment & Plan (06/11/2024 12:15 PM RESERVES CLERK): Supplement Assessment & Plan (03/18/2024 8:06 PM CDT): Supplement Assessment & Plan (09/07/2023 10:30 PM RESERVES CLERK): Supplement Assessment & Plan (05/21/2023 3:44 PM RESERVES CLERK): Supplement Assessment & Plan (07/22/2022 1:47 PM RESERVES CLERK): Supplement Assessment & Plan (09/26/2020 8:14 PM CDT): supplement Assessment & Plan (09/11/2019 9:18 AM CDT): supplement Assessment & Plan (01/30/2019 1:02 PM CDT): supplement COPD (chronic obstructive pulmonary disease) 09/2018 Assessment & Plan (08/26/2024 4:37 PM RESERVES CLERK): COPD symptoms have been stable. Continue Breo and albuterol p.r.n. Assessment & Plan (08/13/2024 1:18 PM RESERVES CLERK): Continue with albuterol and Breo as breathing is stable Assessment & Plan (06/11/2024 12:15 PM RESERVES CLERK): Encouraged complete smoking cessation. Continue Breo and albuterol as needed Assessment & Plan (03/18/2024 8:06 PM CDT): Encouraged complete smoking cessation. Continue albuterol nebs and Breo as needed. Assessment & Plan (09/07/2023 10:30 PM RESERVES CLERK): Patient with COPD. Continue with albuterol and Breo. Assessment & Plan (05/21/2023 3:44 PM RESERVES CLERK): Continue Symbicort and albuterol p.r.n. continue Flonase Assessment & Plan (07/22/2022 1:47 PM RESERVES CLERK): Stressed smoking cessation. Continue Symbicort albuterol inhaler nebulizer p.r.n. Assessment & Plan (07/27/2021 7:15 AM RESERVES CLERK): Continues Symbicort/prn albuterol Still requires Neb Albuterol [...] basis as instructed. New prescription sent to [place] [facility]. Pqni-[id number] completed today Assessment & Plan (09/26/2020 8:14 PM CDT): Continue Symbicort and Albuterol prn Assessment & Plan (03/15/2020 11:10 AM CDT): Continue current regimen. Stop smoking Assessment & Plan (09/11/2019 9:18 AM CDT): STOP smoking. Continue with current regimen inhalers Albuterol/Symbicort Assessment & Plan (01/30/2019 12:54 PM CDT): Continue with Symbicort SHERRY (obstructive sleep apnea) 12/02/2018 Assessment & Plan (08/26/2024 4:36 PM RESERVES CLERK): Patient has been diagnosed with SHERRY. Awaiting titration study for treatment plan. Continue per Dr. Manuel Assessment & Plan (06/11/2024 11:43 AM RESERVES CLERK): Patient has established with Dr. Manuel. She had her sleep study test that did confirm sleep apnea. Awaiting the titration study Assessment & Plan (03/18/2024 8:03 PM CDT): Patient was diagnosed with sleep apnea at [facility] with Dr. Joseph. She would not wear the mask so sent the machine back. Has been untreated for many years. Continues to snore and have daytime sleepiness. Strongly encouraged re- evaluation. Willing to see Dr. Manuel at [facility]. Referral placed Assessment & Plan (09/07/2023 10:30 PM RESERVES CLERK): Continue with CPAP Assessment & Plan (07/22/2022 1:36 PM RESERVES CLERK): Continue CPAP Assessment & Plan (04/08/2021 2:56 [...] 12/02/2018 Assessment & Plan (08/13/2024 1:17 PM RESERVES CLERK): Continue to follow with [facility] in [place] Dr. Etienne's office. She stopped her clonazepam [...] acutely. Assessment & Plan (06/11/2024 11:43 AM RESERVES CLERK): Continue per psychiatrist. She continues to take out her medications and they are updated on her chart Assessment & Plan (03/18/2024 8:04 PM CDT): Continue following with her psychiatrist for management of her mental health concerns. Assessment & Plan (09/07/2023 10:30 PM RESERVES CLERK): Continue per Psychiatry. Current medications include Klonopin Ingrezza Lexapro Vraylar 6 mg Lamictal and lithium Assessment & Plan (05/21/2023 3:45 PM RESERVES CLERK): Continue per psychiatrist Assessment & Plan (07/22/2022 1:45 PM RESERVES CLERK): Continue per psychiatrist. Patient states she is on clonazepam, latuda, Hydroxyzine, Cymbalta and Lexapro Assessment & Plan (08/23/2021 9:42 PM RESERVES CLERK): Per psychiatrist Assessment & Plan (04/08/2021 2:58 PM CDT): Continue per Psychiatry Assessment & Plan (06/14/2020 5:56 PM RESERVES CLERK): Unsure of exact diagnosis. Medication/treatment plan is [...] 08/26/2024 Assessment & Plan (08/13/2024 1:19 PM RESERVES CLERK): Advised patient it is difficult to know if she has true hypertension versus anxiety/panic. Recommend doing home readings and calling us in a couple of weeks with those readings. If she can not do them at home she can always come in but I know transportation is sometimes difficult. Need for influenza vaccination 06/11/2024 08/26/2024 Assessment & Plan (06/11/2024 12:16 PM RESERVES CLERK): Flu vaccine updated in the office today Annual physical exam 06/11/2024 025 Assessment & Plan (06/11/2024 12:16 PM RESERVES CLERK): Encouraged healthy lifestyle, good nutrition and exercise. [...] 03/17/2024 Assessment & Plan (09/07/2023 10:31 PM RESERVES CLERK): Encouraged healthy lifestyle, good nutrition and exercise. Encouraged Calcium and Vitamin D and weight bearing exercise for bone health. Reviewed immunizations. Reviewed age appropirate screenings. Medicare Wellness Documentation is completed within the chart BMI 38.0-38.9,adult 05/21/2023 09/07/19 24 Assessment & Plan (05/21/2023 3:46 PM RESERVES CLERK): Discussed the patient's BMI. The BMI is above average. BMI management plan is completed. BMI Follow-up includes: nutrition counseling, exercise counseling and education provided. BMI 39.0-39.9,adult 07/22/2022 05/04/20 23 Assessment & Plan (07/22/2022 1:48 PM RESERVES CLERK): Discussed the patient's BMI. The BMI is above average. BMI management plan is completed. BMI Follow-up includes: nutrition counseling, exercise counseling and education provided. Need for vaccination 07/22/2022 024 Assessment & Plan (05/21/2023 3:46 PM RESERVES CLERK): Flu vaccine updated in the office Assessment & Plan (07/22/2022 1:48 PM RESERVES CLERK): Flu vaccine at the office today Encounter for screening mamm ogram for malignant neoplasm of breast 07/22/2022 09/07/2023 Assessment & Plan (07/22/2022 1:48 PM RESERVES CLERK): Mammogram order provided Bloody diarrhea 04/08/2021 09/07/2023 [...] 09/07/2023 Assessment & Plan (07/22/2022 1:48 PM RESERVES CLERK): Encouraged healthy lifestyle, good nutrition and exercise. [...] 2016. Prefers to see a provider at [facility]. She is also having burning [...] 01/14/20212022 Assessment & Plan (08/23/2021 9:43 PM RESERVES CLERK): Obesity is unchanged. Discussed the patient's BMI. [...] 07/22/19 Assessment & Plan (07/27/2021 7:21 AM RESERVES CLERK): Obesity is unchanged. Discussed the patient's BMI. [...] onset of sxs. Check COVID test thru [facility] collection site in [place]. Treat sxs with Tylenol, Cough/cold medication otc [...] water often. If needed, use a hand cloth shrinking supervisor that contains at least 60% alcohol. Clean [...] 04/08/2021 Assessment & Plan (07/22/2020 11:47 AM RESERVES CLERK): Declines covid 19 testing at this time. Will start on ceftin 500mg bid x 7 days. She was advised to report to office if having otorrhea or worsening of symptoms. Need for immunization against influenza 06/14/2020 02/17/2021 Assessment & Plan (06/14/2020 5:57 PM RESERVES CLERK): Updated in office today BMI 37.0-37.9, adult 06/10/2020 024 Assessment & Plan (09/07/2023 10:31 PM RESERVES CLERK): Discussed the patient's BMI. The BMI is above average. BMI management plan is completed. BMI Follow-up includes: nutrition counseling, exercise counseling and education provided. Assessment & Plan (06/10/2020 1:35 PM RESERVES CLERK): Obesity is unchanged. Discussed the patient's BMI. The BMI is above average. BMI management plan is completed. BMI Follow-up includes: nutrition counseling, exercise counseling and education provided.Obesity is unchanged. Discussed the patient's BMI. Positive depression screening 06/10/2020 08/26/2024 Assessment & Plan (07/22/2020 11:47 AM RESERVES CLERK): Continue medication same Assessment & Plan (06/14/2020 5:56 PM RESERVES CLERK): Pt denies any suicidal or homicidal thoughts. [...] 03/17/2024 Assessment & Plan (09/07/2023 10:30 PM RESERVES CLERK): Probably multifactorial. Check labs and followup to re-evaluate Assessment & Plan (09/11/2019 9:21 AM CDT): Probably multifactorial. Check labs and followup to re-evaluate Hyperglycemia 09/11/2019 03/06/2024 Assessment & Plan (09/07/2023 10:30 PM RESERVES CLERK): Pre-diabetes/hyperglycemia is a precursor to Dm. Stressed [...] Type Department Care Team Description 10/30/2024 Telephone [facility] Family Medicine [facility] [address] [place] 10/15/2024 Telephone [facility] Family Medicine [address] [place] [address] Sandy Ramirez MA Successful Phone Call ([facility]) 10/03/2024 Orders Only [facility] Health Information Management [address] [place] [address] Scanning, Provider 10/02/2024 Orders Only [facility] Family Medicine [address] [place] [address] [place] Enlarged liver (Primary Dx); Bile duct abnormality 09/28/2024 Telephone [facility] [address] [place] [address] [place] 09/27/2024 Orders Only [facility] Health Information Management [address] [place] [address] [place] 09/24/2024 Documentation [facility] Cardiology [address] [place] [address] Tessie Rice MA 09/21/2024 Telephone [facility] Accountable Care Organization [address] [place] [id number] Antonella Costa Chart Review ([facility] Med Adherence ) 09/11/2024 Orders Only [facility] Internal Medicine at [place] [address] [place] [address] [place] Need for RSV vaccination (Primary Dx) 09/05/2024 Orders Only [facility] Family Medicine [address] [place] [address] [place] Positive HARRIETT (antinuclear antibody) (Primary Dx) 09/05/2024 Orders Only [facility] Family Medicine [address] [place] [address] Inez New [place] Positive HARRIETT (antinuclear antibody) (Primary Dx) 09/04/2024 Results Follow-Up [address] [place] [address] Inez New [place] 08/28/2024 Orders Only [address] [place] [address] Inez New [place] Dizziness (Primary Dx); Persistent headaches 08/28/2024 Orders Only [address] [place] [address] Inez New [place] Facial rash (Primary Dx) 08/24/2024 Orders Only [facility] Information Management [address] [place] [address] Inez New [place] 08/24/2024 Telephone [facility] [address] [place] [address] Jeffy Manuel MD Cpap titration results / cpap order 08/23/2024 7:47 PM RESERVES CLERK - 08/23/2024 11:59 PM RESERVES CLERK Hospital Encounter [facility] [address] [place] [address] SHERRY (obstructive sleep apnea) Discharge Disposition: Discharge to home or self care 08/23/[address] [place] [address] Inez New [place] 08/23/[address] [place] [address] Inez New [place] Medication Request 08/23/[address] [place] [address] Inez New [place] 08/20/[address] [place] [address] Inez New [place] 08/15/2024 10:00 AM RESERVES CLERK Office Visit [facility] Family Medicine [address] [address] Inez New [place] Annual physical [...] on file Legal Sex Female 4:54 AM RESERVES CLERK Gender Identity Not on file Sexual Orientation Not on file Occupation Industry Job Start Date Job End Date Disabled Not on file Not on file Not on file Obstetrics History Last Filed Vital Signs Vital Sign Reading Time Taken Comments Blood Pressure 164/86 08/15/2024 10:04 AM RESERVES CLERK Pulse 85 08/15/2024 10:04 AM RESERVES CLERK Temperature 36.3 C (97.4 F) 08/15/2024 10:04 AM RESERVES CLERK Respiratory Rate 18 05/18/2024 9:37 AM RESERVES CLERK Oxygen Saturation 97% 08/15/2024 10:04 AM RESERVES CLERK Inhaled Oxygen Concentration - - Weight 105 kg (231 lb 6.4 oz) 08/15/2024 10:04 A M RESERVES CLERK Height 154.9 cm (5' 1 ) 08/15/2024 10:04 AM RESERVES CLERK Body Mass Index 43.72 08/15/2024 10:04 AM RESERVES CLERK Plan of Treatment Health Maintenance Due Date [...] TITER & PATTERN Routine 08/28/2024 1:17 PM RESERVES CLERK HARRIETT QUALITATIVE WITH REFLEX TO HARRIETT QUANTITATIVE Routine 08/28/2024 1:17 PM RESERVES CLERK Facial rash SCAN - PATHOLOGY 08/24/2024 GI - RESULT 08/24/2024 PSG (COMPLEX) Routine 08/23/2024 7:47 PM RESERVES CLERK SHERRY (obstructive sleep apnea) ECG 12-LEAD Routine 08/15/2024 10:46 AM RESERVES CLERK Elevated blood pressure reading SCREENING MAMMOGRAM BILATERAL W ALBERTO Schedule Routine, Read Routine (OP Routine) 08/08/2024 2:15 PM RESERVES CLERK Breast cancer screening by mammogram ALBUMIN CREATININE RATIO, URINE Routine 06/01/2024 7:12 AM RESERVES CLERK Type 2 diabetes mellitus with hyperlipidemia (HCC) COMPREHENSIVE METABOLIC PANEL Routine 06/01/2024 7:11 AM RESERVES CLERK Type 2 diabetes mellitus with hyperlipidemia (HCC) HEMOGLOBIN A1C Routine 06/01/2024 7:11 AM RESERVES CLERK Type 2 diabetes mellitus with hyperlipidemia (HCC) LIPID PANEL Routine 06/01/2024 7:11 AM RESERVES CLERK Hyperlipidemia, unspecified hyperlipidemia type HM COLONOSCOPY Routine 05/26/2021 THINPREP RECEIVING 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 OPERATOR PAP (IMAGE GUIDED) LIQUID-BASED PREP Routine 08/03/2017 12:16 PM RESERVES CLERK from Last 3 Months or Most Recently Relevant to Health Maintenance Results * SCAN - RADIOLOGY/IMAGING (10/03/2024) Anatomical Region Laterality Modality Other Provider Scanning Final Result * SCAN - RADIOLOGY/IMAGING (09/27/2024) Anatomical Region Laterality Modality Other Inez VELASCO Final Resu lt * (ABNORMAL) HARRIETT ab ql w/rflx to HARRIETT qn (08/28/2024 1:17 PM RESERVES CLERK) HARRIETT, qual POSITIVE( A) NEGATIVE [facility]Ashlee Kaminski Comment: HARRIETT IFA is a first line screen for detecting the presence of up to approximately 150 autoantibodies in various autoimmune diseases. A positive HARRIETT IFA result is suggestive of autoimmune disease and reflexes to titer and pattern. Further laboratory testing may be considered if clinically indicated. For additional information, please refer to http://education.StyleUp/faq/JGB375 (This link is being provided for informational/ educational purposes only.) Blood 08/28/2024 1:17 PM RESERVES CLERK 08/28/2024 1:18 PM RESERVES CLERK Narrative [facility] - 08/30/2024 1:13 PM RESERVES CLERK FASTING:YES FASTING: YES Inez VELASCO LAB BLOOD ORDERABLES Final Result ESTELLA [facility] [address] [phone] * (ABNORMAL) Antinuclear Antibodies Titer and Pattern (08/28/2024 1:17 PM RESERVES CLERK) HARRIETT, quant 1:80(H) titer [facility] [...] AC-1: Homogeneous International Consensus on HARRIETT Patterns (https://doi.org/10.1515/jccb-2853-1749) 08/28/2024 1:17 PM RESERVES CLERK 08/28/2024 1:18 PM RESERVES CLERK Narrative [facility] - 08/30/2024 1:13 PM RESERVES CLERK FASTING:YES FASTING: YES Inez VELASCO LAB BLOOD ORDERABLES Final Result Performing Organization Address City/[facility]/ZIP Co de Phone Number [facility] [address] [place] [address] * GI - RESULT (08/24/2024) Anatomical Region Laterality Modality Other us Inez VELASCO Final Resu lt * SCAN - PATHOLOGY (08/24/2024) us Provider Scanning Final Result * PSG-Sleep Provider Use Only (08/23/2024 7:47 PM RESERVES CLERK) us Jeffy Manuel MD SLEEP CENTER ORDERABLES F inal Result [facility] SLEEP MEDICINE [address] [place] [address] * ECG 12 lead (08/15/2024 10:46 AM RESERVES CLERK) Inze VELASCO ECG ORDERABLES Final Resu lt * Screening Mammogram Bilateral W Alberto (08/08/2024 2:15 PM RESERVES CLERK) Anatomical Region Laterality Modality Breast Bilateral Mammography Impressions 08/08/2024 2:15 PM RESERVES CLERK 1.No mammographic evidence of malignancy 2.Routine screening recommended for 1 year BI-RADS Category 1 Negative Inez VELASCO IMG MAMMO PROCEDURES Final Result * Albumin Creatinine Ratio, Urine (06/01/2024 7:12 AM RESERVES CLERK) Creatinine, ur 42 20 - 275 mg/dL [...] a diagnostic category. Urine 06/01/2024 7:12 AM RESERVES CLERK 06/01/2024 7:13 AM RESERVES CLERK Inez VELASCO LAB URINE ORDERABLES Final Result [facility] [address] [address] * (ABNORMAL) Hemoglobin A1c (06/01/2024 7:11 AM RESERVES CLERK) Hgb A1C 5.9(H) <5.7 % of total [...] diabetes for children. Blood 06/01/2024 7:11 AM RESERVES CLERK 06/01/2024 7:11 AM RESERVES CLERK Narrative [facility] - 06/01/2024 9:56 PM RESERVES CLERK FASTING:YES FASTING: YES us Inez VELASCO LAB BLOOD ORDERABLES Final Result ESTELLA [facility]Un[facility] CenterMelissa [address] [place] [address] * (ABNORMAL) Lipid panel (06/01/2024 7:11 AM RESERVES CLERK) [facility] Cholesterol 142 <200 mg/dL [facility] HDL 47(L) > OR = 50 mg/dL [facility] Triglycerides 124 <150 mg/dL [facility] LDL 74 mg/dL (calc) [facility] Jackson Comment: Reference range: <100 Desirable range <100 mg/dL for primary prevention; <70 mg/dL for patients with CHD or diabetic patients with > or = 2 CHD risk factors. LDL-C is now calculated using the Arley-Marito calculation, which is a validated novel method providing better accuracy than the Friedewald equation in the estimation of LDL-C. Arley COSTA et al. FRANKY. 2013;310(19): 5547-4064 (http://education.Nascentric.Business Texter/faq/DWC499) Chol/HDL ratio 3.0 <5.0 (calc) Estella SekoiaEmerson Jackson Non-HDL, (LDL+VLDL) 95 <130 mg/dL (calc) Estella PopsetYessenia Jackson Comment: For patients with diabetes plus 1 major ASCVD risk factor, treating to a non-HDL-C goal of <100 mg/dL (LDL-C of <70 mg/dL) is considered a therapeutic option. Blood 06/01/2024 7:11 AM RESERVES CLERK 06/01/2024 7:11 AM RESERVES CLERK Narrative [facility] - 06/01/2024 9:56 PM RESERVES CLERK FASTING:YES FASTING: YES Inez VELASCO LAB BLOOD ORDERABLES Final Result ESTELLA Jackson [address] [place] [address] * Comprehensive metabolic panel (06/01/2024 7:11 AM RESERVES CLERK) Pathologist [facility] Glucose 98 65 - 99 mg/dL Estella Popset-Emerson Jackson Comment: Fasting reference interval BUN 11 7 - 25 mg/dL Estella Popset-Emerson watt Manuel Creatinine 0.75 0.50 - 1.03 mg/dL Estella Popset-S shukri Jackson eGFR 95 > OR = 60 mL/min/1.7 3m2 Estella Popset-Emerson Jackson BUN/creat ratio SEE NOTE: 6 - 22 (calc) Estella Popset-Emerson Jackson Comment: Not Reported: BUN and Creatinine [...] Alb/glob ratio 2.1 1.0 - 2.5 (calc) [facility] shukri Jackson Bilirubin, total 0.6 0.2 - 1.2 mg/dL [facility] sh[facility] Jackson Alk phos 69 37 - 153 U/L [facility] Manuel AST 24 10 - 35 U/L [facility] Jackson ALT (SGPT) 21 6 - 29 U/L [facility]S shukri Manuel Blood 06/01/2024 7:11 AM RESERVES CLERK 06/01/2024 7:11 AM RESERVES CLERK Narrative [facility] - 06/01/2024 9:56 PM RESERVES CLERK FASTING:YES FASTING: YES Result [facility] Inez VELASCO LAB BLOOD ORDERABLES Final Result [facility] [place] [address] [place] [address] * (ABNORMAL) COLONOSCOPY (05/26/2021) Historical Provider HEALTH MAINTENANCE Edited Result - Final * ThinPrep Gynecologic Pap Test (Image-guided), Liquid-based Preparation (08/03/2017 12:16 PM RESERVES CLERK) CLINICAL INFORMATION [facility] HISTORICAL RESULTS Comment:Information not prov ided LMP: 07/19 [facility] HISTORICAL RESULTS PREV. PAP: [facility] HISTORICAL RESULTS Comment:MANY YEARS AGO PREV. BX: [facility] HISTORICAL RESULTS Comment:INFORMATION NOT PROV IDED SOURCE: [facility] HISTORICAL RESULTS Comment:Cervix, Endocervix STATEMENT OF ADEQUACY: [facility] HISTORICAL RESULTS Comment: Satisfactory for evaluation. Endocervical/transformation zone component present. INTERPRETATION/RESU LT: [facility] HISTORICAL RESULTS Comment:Negative for intraep ithelial lesion or malignancy. COMMENT: [facility] HISTORICAL RESULTS Comment: This Pap test has been evaluated with computer assisted technology. VP OUTCOMES: [facility] HISTORICAL RESULTS Comment: YQ, CT(ASCP) CT screening location: [place] [address] [place] [id number] 08/03/2017 12:1 6 PM RESERVES CLERK 08/09/2017 8:55 PM RESERVES CLERK Narrative [facility] HISTORICAL RESULTS - 08/09/2017 8:41 PM RESERVES CLERK 0 PERFORMING LAB: ROGELIO [facility] [place] [address] [place] [address] Mahi Mcmahon MD Result [facility] Historical Provider LAB PATHOLOGY ORDERABLES Final Result Performing Organization Address City/[facility]/ZIP Co de Phone Number [facility] EC HISTORICAL RESULTS from Last 3 Months or Most Recently Relevant to Health Maintenance Insurance [facility] MEDICARE ADVANTAGE [facility] MEDICARE ADVANTAGE [facility] MEDICARE ADVANTAGE Advance Directives For more information, please contact: [phone] * Full Code (Latest Code Status on File) Date Activated Date Inactivated Comments 05/29/2022 12:59 PM 05/30/2022 2:26 PM * Full Code Date Activated Date Inactivated Comments 05/28/2022 7:20 PM 05/29/2022 12:59 PM Care Teams Doctor Assistant Relationship Specialty Start Date End Date Inez New [place] [address] [place] [address] PCP - General 09/14/17 Candido Guerin MD [address] [place] [address] Consulting Physician Gastroenterology 05/04/23 Anthony Diez MD [address] [place] [address] Consulting Physician Rheumatology 09/18/24
--- OUTSIDE RECORDS SUMMARY | 2024-10-31 14:25 | XMS_ITS | Referral Summary ---
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[employer] Name Role Phone Inez New Primary Care Provider + [phone] Candido Guerin MD Unavailable [phone] Anthony Diez MD Unavailable [phone] Encounters Date Type Department Care Team Description 10/30/2024 Telephone [facility] [address] [place] [phone] Inez New PA 10/15/2024 Telephone [facility] [address] [place] [address] Sandy Ramirez MA Successful Phone Call (MED ADHERENCE) 10/03/2024 Orders Only [facility] Health Information Management [address] [place] [phone] Scanning, Provider 10/02/2024 Orders Only [facility] [address] [place] [phone] Inez New PA Enlarged liver (Primary Dx); Bile duct abnormality 09/28/2024 Telephone [facility] [address] [place] [address] Inez New PA 09/27/2024 Orders Only [facility] Health Information Management [address] [place] [address] Inez New PA 09/24/2024 Documentation [facility] Card[facility] [address] [facility] [address] [place] [address] Tessie Rice MA 09/21/2024 Telephone [facility] Accountable Care Organization [address] [place] [address] Antonella Costa Chart Review ([facility] Med Adherence ) 09/11/2024 Orders Only [facility] Internal Medicine at [place] [address] [facility] [facility] [address] [place] [address] Inez New PA Need for RSV vaccination (Primary Dx) 09/05/2024 Orders Only [facility] Family [facility] [place] [address] Inez New PA Positive HARRIETT (antinuclear antibody) (Primary Dx) 09/05/2024 Orders Only [facility] Family Medicine [address] [place] [address] Inez New PA Positive HARRIETT (antinuclear antibody) (Primary Dx) 09/04/2024 Results Follow-Up [facility] [address] [place] [address] Inez New PA 08/28/2024 Orders Only [facility] Family Medicine [address] [place] [address] Inez New PA Dizziness (Primary Dx); Persistent headaches 08/28/2024 Orders Only [facility] Medicine [address] [place] [address] Inez New PA Facial rash (Primary Dx) 08/24/2024 Orders Only [facility] Health Information Management [address] [place] [phone] Inez New PA 08/24/2024 Telephone [facility] [address] [place] [address] Jeffy Manuel MD Cpap titration results / cpap order 08/23/[address] [place] [phone] Inez New PA 08/23/[address] [place] [phone] Inez New PA Medication Request 08/23/[address] [place] [phone] Inez New PA 08/23/2024 7:47 PM LYE TREATER - 08/23/2024 11:59 PM LYE TREATER Hospital Encounter [facility] [address] [place] [address] SHERRY (obstructive sleep apnea) Discharge Disposition: Discharge to home or self care 08/20/[address] [place] [phone] Inez New PA 08/15/2024 10:00 AM LYE TREATER Office Visit [address] [place] [phone] Inez New PA Annual physical exam (Primary [...] 08/26/2024 Assessment & Plan (08/26/2024 4:47 PM LYE TREATER): This is a significant, separately identifiable problem [...] 08/26/2024 Assessment & Plan (08/26/2024 4:46 PM LYE TREATER): Encouraged healthy lifestyle, good nutrition and exercise. Encouraged Calcium and Vitamin D and weight bearing exercise for bone health. Reviewed immunizations Reviewed age appropirate screenings. Hypertension associated with diabetes 08/15/2024 Assessment & Plan (08/26/2024 4:38 PM LYE TREATER): Blood pressure still isn't perfectly controlled. Continue with the lisinopril 20. She has not been taking the propranolol so will switch to Bystolic 5 for a q.d. dosing and see how she does. Call in a week with readings. BMI 40.0-44.9, adult 06/11/2024 Assessment & Plan (08/15/2024 10:04 AM LYE TREATER): Discussed the patient's BMI. The BMI is above average. BMI management plan is completed. BMI Follow-up includes: nutrition counseling, exercise counseling and education provided. Assessment & Plan (08/01/2024 11:21 AM LYE TREATER): Discussed the patient's BMI. The BMI is above average. BMI management plan is completed. BMI Follow-up includes: nutrition counseling, exercise counseling and education provided. Assessment & Plan (06/11/2024 12:16 PM LYE TREATER): Discussed the patient's BMI. The BMI is above average. BMI management plan is completed. BMI Follow-up includes: nutrition counseling, exercise counseling and education provided. 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 Bring accuchecks to office when instructed to do so. Check A1c about every 3-6 months. Take medication as prescribed. Get annual eye exam. Encouraged GLENDY/Statin if able to tolerate. Encouraged weight control and encouraged diabetic diet and exercise. 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 Bring accuchecks to office when instructed to do so. Check A1c about every 3-6 months. Take medication as prescribed. Get annual eye exam. Encouraged GLENDY/Statin if able to tolerate. Encouraged weight control and encouraged diabetic diet and exercise. A1c is nicely controlled at 5.9. 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 Bring [...] Discussed with patient at length diabetes, pathogenesis, regional intermodal truck driver sequela, end organ damage, [...] feet on a regular basis to avoid penitentiary problems. 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 Start metformin 500 mg 1 tablet daily [...] referral Assessment & Plan (09/07/2023 10:34 PM LYE TREATER): Ears are clear. Suspect eustachian tube dysfunction. Recommend Flonase, mucinex and antihistamine. If symptoms persist, may need ENT referral. Morbid obesity 07/22/2022 Assessment & Plan (08/26/2024 4:37 PM LYE TREATER): Discussed the patient's BMI. The BMI is above average. BMI management plan is completed. BMI Follow-up includes: nutrition counseling, exercise counseling and education provided. Assessment & Plan (08/01/2024 11:22 AM LYE TREATER): Discussed the patient's BMI. The BMI is above average. BMI management plan is completed. BMI Follow-up includes: nutrition counseling, exercise counseling and education provided. Assessment & Plan (06/11/2024 12:15 PM LYE TREATER): Discussed the patient's BMI. The BMI is above average. BMI management plan is completed. BMI Follow-up includes: nutrition counseling, exercise counseling and education provided. Assessment & Plan (03/18/2024 8:06 PM CDT): Discussed the patient's BMI. The BMI is above average. BMI management plan is completed. BMI Follow-up includes: nutrition counseling, exercise counseling and education provided. Assessment & Plan (09/07/2023 10:31 PM LYE TREATER): Discussed the patient's BMI. The BMI is above average. BMI management plan is completed. BMI Follow-up includes: nutrition counseling, exercise counseling and education provided. Patient has an obesity-related condition (not limited to: hypertension, obstructive sleep apnea, osteoarthritis, hyperlipidemia, diabetes, etc.). Therefore, morbid obesity may be documented for patients with a BMI between 35.00-39.99. Assessment & Plan (05/21/2023 3:46 PM LYE TREATER): Discussed the patient's BMI. The BMI is above average. BMI management plan is completed. BMI Follow-up includes: nutrition counseling, exercise counseling and education provided. Patient has an obesity-related condition (not limited to: hypertension, obstructive sleep apnea, osteoarthritis, hyperlipidemia, diabetes, etc.). Therefore, morbid obesity may be documented for patients with a BMI between 35.00-39.99. Assessment & Plan (07/22/2022 2:01 PM LYE TREATER): Discussed the patient's BMI. The BMI is above average. BMI management plan is completed. BMI Follow-up includes: nutrition counseling, exercise counseling and education provided. Patient has an obesity-related condition (not limited to: hypertension, obstructive sleep apnea, osteoarthritis, hyperlipidemia, diabetes, etc.). Therefore, morbid obesity may be documented for patients with a BMI between 35.00-39.99. Symptomatic anemia 05/28/2022 Assessment & Plan (09/07/2023 10:29 PM LYE TREATER): Known anemia. Has had transfusion. Continue to [...] Guajardo Assessment & Plan (06/14/2020 5:55 PM LYE TREATER): Refer back to Ortho. Offered PT. She [...] 09/11/2019 Assessment & Plan (06/11/2024 12:15 PM LYE TREATER): Mammogram order provided Assessment & Plan (08/23/2021 9:43 PM LYE TREATER): Mammogram order provided Assessment & Plan (09/26/2020 8:30 PM CDT): Mammogram order provided Assessment & Plan (09/11/2019 9:21 AM CDT): Mammogram order provided Sciatica of right side 06/17/2019 Assessment & Plan (06/17/2019 6:14 PM LYE TREATER): Voltaren gel Exercise/Start PT Followup if sxs worsen or don't improved. Vertigo 02/28/2019 Assessment & Plan (03/18/2024 8:06 PM CDT): Uses meclizine p.r.n. with good results Assessment & Plan (09/26/2020 8:29 PM CDT): antivert prn Assessment & Plan (03/15/2020 11:09 AM CDT): Persitent vertigo. 02/2020 CT head was essentially negative. She has finally agreed to vestibular therapy. Will still change neurology referral from [place] to [place] as patient able to arranage transportation easier. [...] 09/2018 Assessment & Plan (08/26/2024 4:36 PM LYE TREATER): Encouraged patient to follow low fat/low chol diet like the Mediterranean diet. Increase good fats in the diet. Increase exercise. Monitor labs as needed. Continue Crestor Assessment & Plan (08/13/2024 1:17 PM LYE TREATER): Encouraged patient to follow low fat/low chol diet like the Mediterranean diet. Increase good fats in the diet. Increase exercise. Monitor labs as needed. 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 Bring [...] Crestor Assessment & Plan (09/07/2023 10:30 PM LYE TREATER): Encouraged patient to follow low fat/low chol diet like the Mediterranean diet. Increase good fats in the diet. Increase exercise. Monitor labs as needed. Continue with Crestor Assessment & Plan (05/21/2023 3:44 PM LYE TREATER): Encouraged patient to follow low fat/low chol diet like the Mediterranean diet. Increase good fats in the diet. Increase exercise. Monitor labs as needed. Continue Crestor Assessment & Plan (07/22/2022 1:49 PM LYE TREATER): Encouraged patient to follow low fat/low chol diet like the Mediterranean diet. Increase good fats in the diet. Increase exercise. Monitor labs as needed. Continue Crestor Assessment & Plan (08/23/2021 9:42 PM LYE TREATER): Encouraged patient to follow fat/low chol diet [...] 12/04/2018 Assessment & Plan (06/11/2024 12:15 PM LYE TREATER): Encouraged smoking cessation. Discussed 3 minutes. Reviewed options for assistance with cessation. Reviewed penitentiary sequela associated with smoking. Pt declines assistance at this time but may contact the office at anytime for further help as they desire. Assessment & Plan (03/18/2024 8:05 PM CDT): Encouraged smoking cessation. Discussed 3 minutes. Reviewed options for assistance with cessation. 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 Pt declines assistance at this time but may contact the office at anytime for further help as they desire. Declines low-dose CT at this point Assessment & Plan (09/07/2023 10:30 PM LYE TREATER): Encouraged smoking cessation. Discussed 3 minutes. Reviewed options for assistance with cessation. 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 Pt declines assistance at this time but may contact the office at anytime for further help as they desire. Assessment & Plan (07/22/2022 1:47 PM LYE TREATER): Encouraged smoking cessation. Discussed 3 minutes. Reviewed options for assistance with cessation. 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 Pt declines assistance at this time but may contact the office at anytime for further help as they desire. Assessment & Plan (08/23/2021 9:42 PM LYE TREATER): Encouraged smoking cessation. Discussed 3 minutes. Reviewed options for assistance with cessation. Reviewed penitentiary sequela associated with smoking. Pt declines assistance at this time but may contact the office at anytime for further help as they desire. Assessment & Plan (04/08/2021 2:56 PM CDT): Encouraged smoking cessation. Discussed 3 minutes. Reviewed options for assistance with cessation. 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 Pt declines assistance at this time but may contact the office at anytime for further help as they desire. Assessment & Plan (01/18/2021 11:39 PM CDT): Encouraged smoking cessation. Discussed 3 minutes. Reviewed options for assistance with cessation. 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 Pt declines assistance at this time but may contact the office at anytime for further help as they desire. Assessment & Plan (09/26/2020 8:30 PM CDT): Encouraged smoking cessation. Discussed 3 minutes. Reviewed options for assistance with cessation. 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 Pt declines assistance at this time but may contact the office at anytime for further help as they desire. Assessment & Plan (06/14/2020 5:55 PM LYE TREATER): Encouraged smoking cessation. Discussed 3 minutes. Reviewed options for assistance with cessation. Reviewed penitentiary sequela associated with smoking. Pt declines assistance at this time but may contact the office at anytime for further help as they desire. Assessment & Plan (03/15/2020 11:10 AM CDT): Encouraged smoking cessation. Discussed 3 minutes. Reviewed options for assistance with cessation. 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 [...] desire. Assessment & Plan (06/17/2019 6:16 PM LYE TREATER): Encouraged smoking cessation. Discussed 3 minutes. Reviewed [...] 12/04/2018 Assessment & Plan (06/11/2024 12:15 PM LYE TREATER): Continue PPI Assessment & Plan (03/18/2024 8:05 PM CDT): Patient has been following closely with Dr. Guerin GI. She transferred and saw Dr. Nath and had an EGD done. States at this point her symptoms are pretty stable so will just continue to monitor continuing the Bentyl as needed and continue PPI p.r.n. Assessment & Plan (05/21/2023 3:44 PM LYE TREATER): Continue PPI p.r.n.. Continue per GI Assessment & Plan (07/22/2022 1:47 PM LYE TREATER): Continue per Dr. Guerin. She is currentl on omeprazole sucralfate. Will await his recommendations Assessment & Plan (08/23/2021 9:42 PM LYE TREATER): Continue PPI. She is unsure if the Dexilant will continue to be covered by her insurance so she will contact us with the letter she has at home with her options. Assessment & Plan (04/08/2021 2:55 PM CDT): Increased reflux symptoms. She is currently on Dexilant. Encouraged to continue with the same regimen. Will refer her to GI Dr. Zamora at [place] she is due for colonoscopy and may [...] 12/04/2018 Assessment & Plan (06/11/2024 12:15 PM LYE TREATER): Supplement Assessment & Plan (03/18/2024 8:06 PM CDT): Supplement Assessment & Plan (09/07/2023 10:30 PM LYE TREATER): Supplement Assessment & Plan (05/21/2023 3:44 PM LYE TREATER): Supplement Assessment & Plan (07/22/2022 1:47 PM LYE TREATER): Supplement Assessment & Plan (09/26/2020 8:14 PM CDT): supplement Assessment & Plan (09/11/2019 9:18 AM CDT): supplement Assessment & Plan (01/30/2019 1:02 PM CDT): supplement COPD (chronic obstructive pulmonary disease) 09/2018 Assessment & Plan (08/26/2024 4:37 PM LYE TREATER): COPD symptoms have been stable. Continue Breo and albuterol p.r.n. Assessment & Plan (08/13/2024 1:18 PM LYE TREATER): Continue with albuterol and Breo as breathing is stable Assessment & Plan (06/11/2024 12:15 PM LYE TREATER): Encouraged complete smoking cessation. Continue Breo and albuterol as needed Assessment & Plan (03/18/2024 8:06 PM CDT): Encouraged complete smoking cessation. Continue albuterol nebs and Breo as needed. Assessment & Plan (09/07/2023 10:30 PM LYE TREATER): Patient with COPD. Continue with albuterol and Breo. Assessment & Plan (05/21/2023 3:44 PM LYE TREATER): Continue Symbicort and albuterol p.r.n. continue Flonase Assessment & Plan (07/22/2022 1:47 PM LYE TREATER): Stressed smoking cessation. Continue Symbicort albuterol inhaler nebulizer p.r.n. Assessment & Plan (07/27/2021 7:15 AM LYE TREATER): Continues Symbicort/prn albuterol Still requires Neb Albuterol [...] basis as instructed. New prescription sent to [facility]. [id number] completed today Assessment & Plan (09/26/2020 8:14 PM CDT): Continue Symbicort and Albuterol prn Assessment & Plan (03/15/2020 11:10 AM CDT): Continue current regimen. Stop smoking Assessment & Plan (09/11/2019 9:18 AM CDT): STOP smoking. Continue with current regimen inhalers Albuterol/Symbicort Assessment & Plan (01/30/2019 12:54 PM CDT): Continue with Symbicort SHERRY (obstructive sleep apnea) 12/02/2018 Assessment & Plan (08/26/2024 4:36 PM LYE TREATER): Patient has been diagnosed with SHERRY. Awaiting titration study for treatment plan. Continue per Dr. Manuel Assessment & Plan (06/11/2024 11:43 AM LYE TREATER): Patient has established with Dr. Manuel. She had her sleep study test that did confirm sleep apnea. Awaiting the titration study Assessment & Plan (03/18/2024 8:03 PM CDT): Patient was diagnosed with sleep apnea at [facility] with Dr. Joseph. She would not wear the mask so sent the machine back. Has been untreated for many years. Continues to snore and have daytime sleepiness. Strongly encouraged re- evaluation. Willing to see Dr. Manuel at [facility]. Referral placed Assessment & Plan (09/07/2023 10:30 PM LYE TREATER): Continue with CPAP Assessment & Plan (07/22/2022 1:36 PM LYE TREATER): Continue CPAP Assessment & Plan (04/08/2021 2:56 [...] 12/02/2018 Assessment & Plan (08/13/2024 1:17 PM LYE TREATER): Continue to follow with Shakira in [place] Dr. Etienne's office. She stopped her clonazepam [...] acutely. Assessment & Plan (06/11/2024 11:43 AM LYE TREATER): Continue per psychiatrist. She continues to take out her medications and they are updated on her chart Assessment & Plan (03/18/2024 8:04 PM CDT): Continue following with her psychiatrist for management of her mental health concerns. Assessment & Plan (09/07/2023 10:30 PM LYE TREATER): Continue per Psychiatry. Current medications include Klonopin Ingrezza Lexapro Vraylar 6 mg Lamictal and lithium Assessment & Plan (05/21/2023 3:45 PM LYE TREATER): Continue per psychiatrist Assessment & Plan (07/22/2022 1:45 PM LYE TREATER): Continue per psychiatrist. Patient states she is on clonazepam, latuda, Hydroxyzine, Cymbalta and Lexapro Assessment & Plan (08/23/2021 9:42 PM LYE TREATER): Per psychiatrist Assessment & Plan (04/08/2021 2:58 PM CDT): Continue per Psychiatry Assessment & Plan (06/14/2020 5:56 PM LYE TREATER): Unsure of exact diagnosis. Medication/treatment plan is [...] 08/26/2024 Assessment & Plan (08/13/2024 1:19 PM LYE TREATER): Advised patient it is difficult to know if she has true hypertension versus anxiety/panic. Recommend doing home readings and calling us in a couple of weeks with those readings. If she can not do them at home she can always come in but I know transportation is sometimes difficult. Need for influenza vaccination 06/11/2024 08/26/2024 Assessment & Plan (06/11/2024 12:16 PM LYE TREATER): Flu vaccine updated in the office today Annual physical exam 06/11/2024 025 Assessment & Plan (06/11/2024 12:16 PM LYE TREATER): Encouraged healthy lifestyle, good nutrition and exercise. [...] 03/17/2024 Assessment & Plan (09/07/2023 10:31 PM LYE TREATER): Encouraged healthy lifestyle, good nutrition and exercise. Encouraged Calcium and Vitamin D and weight bearing exercise for bone health. Reviewed immunizations. Reviewed age appropirate screenings. Medicare Wellness Documentation is completed within the chart BMI 38.0-38.9,adult 05/21/2023 09/07/19 24 Assessment & Plan (05/21/2023 3:46 PM LYE TREATER): Discussed the patient's BMI. The BMI is above average. BMI management plan is completed. BMI Follow-up includes: nutrition counseling, exercise counseling and education provided. BMI 39.0-39.9,adult 07/22/2022 05/04/20 23 Assessment & Plan (07/22/2022 1:48 PM LYE TREATER): Discussed the patient's BMI. The BMI is above average. BMI management plan is completed. BMI Follow-up includes: nutrition counseling, exercise counseling and education provided. Need for vaccination 07/22/2022 024 Assessment & Plan (05/21/2023 3:46 PM LYE TREATER): Flu vaccine updated in the office Assessment & Plan (07/22/2022 1:48 PM LYE TREATER): Flu vaccine at the office today Encounter for screening mamm ogram for malignant neoplasm of breast 07/22/2022 09/07/2023 Assessment & Plan (07/22/2022 1:48 PM LYE TREATER): Mammogram order provided Bloody diarrhea 04/08/2021 09/07/2023 [...] 09/07/2023 Assessment & Plan (07/22/2022 1:48 PM LYE TREATER): Encouraged healthy lifestyle, good nutrition and exercise. [...] 2015. Prefers to see a provider at [facility]. She is also having burning [...] 01/14/20212022 Assessment & Plan (08/23/2021 9:43 PM LYE TREATER): Obesity is unchanged. Discussed the patient's BMI. [...] 23 Assessment & Plan (07/27/2021 7:21 AM LYE TREATER): Obesity is unchanged. Discussed the patient's BMI. [...] test thru [facility] collection site in [place]. Treat sxs with Tylenol, Cough/cold medication otc [...] water often. If needed, use a hand rn cardiology that contains at least 60% alcohol. Clean [...] 04/08/2021 Assessment & Plan (07/22/2020 11:47 AM LYE TREATER): Declines covid 19 testing at this time. Will start on ceftin 500mg bid x 7 days. She was advised to report to office if having otorrhea or worsening of symptoms. Need for immunization against influenza 06/14/2020 02/17/2021 Assessment & Plan (06/14/2020 5:57 PM LYE TREATER): Updated in office today BMI 37.0-37.9, adult 06/10/2020 024 Assessment & Plan (09/07/2023 10:31 PM LYE TREATER): Discussed the patient's BMI. The BMI is above average. BMI management plan is completed. BMI Follow-up includes: nutrition counseling, exercise counseling and education provided. Assessment & Plan (06/10/2020 1:35 PM LYE TREATER): Obesity is unchanged. Discussed the patient's BMI. The BMI is above average. BMI management plan is completed. BMI Follow-up includes: nutrition counseling, exercise counseling and education provided.Obesity is unchanged. Discussed the patient's BMI. Positive depression screening 06/10/2020 08/26/2024 Assessment & Plan (07/22/2020 11:47 AM LYE TREATER): Continue medication same Assessment & Plan (06/14/2020 5:56 PM LYE TREATER): Pt denies any suicidal or homicidal thoughts. [...] 03/17/2024 Assessment & Plan (09/07/2023 10:30 PM LYE TREATER): Probably multifactorial. Check labs and followup to re-evaluate Assessment & Plan (09/11/2019 9:21 AM CDT): Probably multifactorial. Check labs and followup to re-evaluate Hyperglycemia 09/11/2019 03/06/2024 Assessment & Plan (09/07/2023 10:30 PM LYE TREATER): Pre-diabetes/hyperglycemia is a precursor to Dm. Stressed [...] on file Legal Sex Female 4:54 AM LYE TREATER Gender Identity Not on file Sexual Orientation Not on file Occupation Industry Job Start Date Job End Date Disabled Not on file Not on file Not on file Last Filed Vital Signs Vital Sign Reading Time Taken Comments Blood Pressure 164/86 08/15/2024 10:04 AM LYE TREATER Pulse 85 08/15/2024 10:04 AM LYE TREATER Temperature 36.3 C (97.4 F) 08/15/2024 10:04 AM LYE TREATER Respiratory Rate 18 05/18/2024 9:37 AM LYE TREATER Oxygen Saturation 97% 08/15/2024 10:04 AM LYE TREATER Inhaled Oxygen Concentration - - Weight 105 kg (231 lb 6.4 oz) 08/15/2024 10:04 A M LYE TREATER Height 154.9 cm (5' 1 ) 08/15/2024 10:04 AM LYE TREATER Body Mass Index 43.72 08/15/2024 10:04 AM LYE TREATER Plan of Treatment Not on file Procedures Procedure Name Priority Date/Time Associated Diagnosis Comments SCAN - RADIOLOGY/IMAGING 10/03/2024 SCAN - RADIOLOGY/IMAGING 09/27/2024 HARRIETT TITER & PATTERN Routine 08/28/2024 1 :17 PM LYE TREATER HARRIETT QUALITATIVE WITH REFLEX TO HARRIETT QUANTITATIVE Routine 08/28/2024 1:17 PM LYE TREATER Facial rash SCAN - PATHOLOGY 08/24/2024 GI - RESULT 08/24/2024 PSG (COMPLEX) Routine 08/23/2024 7:47 PM LYE TREATER SHERRY (obstructive sleep apnea) ECG 12-LEAD Routine 08/15/2024 10:46 AM LYE TREATER Elevated blood pressure reading SCREENING MAMMOGRAM BILATERAL W ALBETRO Schedule Routine, Read Routine (OP Routine) 08/08/2024 2:15 PM LYE TREATER Breast cancer screening by mammogram ALBUMIN CREATININE RATIO, URINE Routine 06/01/2024 7:12 AM LYE TREATER Type 2 diabetes mellitus with hyperlipidemia (HCC) COMPREHENSIVE METABOLIC PANEL Routine 06/01/2024 7:11 AM LYE TREATER Type 2 diabetes mellitus with hyperlipidemia (HCC) HEMOGLOBIN A1C Routine 06/01/2024 7:11 AM LYE TREATER Type 2 diabetes mellitus with hyperlipidemia (HCC) LIPID PANEL Routine 06/01/2024 7:11 AM LYE TREATER Hyperlipidemia, unspecified hyperlipidemia type HM COLONOSCOPY Routine 05/26/2021 THINPREP PATIENT ACCESS REGISTRAR PAP (IMAGE GUIDED) LIQUID-BASED PREP Routine 08/03/2017 12:16 PM LYE TREATER from Last 3 Months or Most Recently Relevant to Health Maintenance Results * SCAN - RADIOLOGY/IMAGING (10/03/2024) Anatomical Region Laterality Modality Other Provider Scanning Final Result * SCAN - RADIOLOGY/IMAGING (09/27/2024) Anatomical Region Laterality Modality Other Inez VELASCO Final Resu lt * (ABNORMAL) HARRIETT ab ql w/rflx to HARRIETT qn (08/28/2024 1:17 PM LYE TREATER) HARRIETT, qual POSITIVE( A) NEGATIVE [facility] Comment: HARRIETT IFA is a first line screen for detecting the presence of up to approximately 150 autoantibodies in various autoimmune diseases. A positive HARRIETT IFA result is suggestive of autoimmune disease and reflexes to titer and pattern. Further laboratory testing may be considered if clinically indicated. For additional information, please refer to http://education.[employer]/faq/VHR264 (This link is being provided for informational/ educational purposes only.) Blood 08/28/2024 1:17 PM LYE TREATER 08/28/2024 1:18 PM LYE TREATER Narrative [facility] - 08/30/2024 1:13 PM LYE TREATER FASTING:YES FASTING: YES Inez VELASCO LAB BLOOD ORDERABLES Final Result [facility] [address] [place] [address] * (ABNORMAL) Antinuclear Antibodies Titer and Pattern (08/28/2024 1:17 PM LYE TREATER) HARRIETT, quant 1:80(H) titer [facility] [...] AC-1: Homogeneous International Consensus on HARRIETT Patterns (https://doi.org/10.1515/lmkb-1804-3282) 08/28/2024 1:1 7 PM LYE TREATER 08/28/2024 1:18 PM LYE TREATER Narrative [facility] - 08/30/2024 1:13 PM LYE TREATER FASTING:YES FASTING: YES Inez VELASCO LAB BLOOD ORDERABLES Final Result [email or web address] [address] [place] [address] * GI - RESULT (08/24/2024) Anatomical Region Laterality Modality Other Inez VELASCO Final Resu lt * SCAN - PATHOLOGY (08/24/2024) Provider Scanning Final Result * PSG-Sleep Provider Use Only (08/23/2024 7:47 PM LYE TREATER) Jeffy Manuel MD [facility]ENTER ORDERABLES F inal Result [facility] [address] [place] [address] * ECG 12 lead (08/15/2024 10:46 AM LYE TREATER) Inez VELASCO ECG ORDERABLES Final Resu lt * Screening Mammogram Bilateral W Alberto (08/08/2024 2:15 PM LYE TREATER) Anatomical Region Laterality Modality Breast Bilateral Mammography Impressions 08/08/2024 2:15 PM LYE TREATER 1.No mammographic evidence of malignancy 2.Routine screening recommended for 1 year BI-RADS Category 1 Negative us Inez VELASCO IMG MAMMO PROCEDURES Final Result * Albumin Creatinine Ratio, Urine (06/01/2024 7:12 AM LYE TREATER) Creatinine, ur 42 20 - 275 mg/dL [...] a diagnostic category. Urine 06/01/2024 7:12 AM LYE TREATER 06/01/2024 7:13 AM LYE TREATER Inez VELASCO LAB URINE ORDERABLES Final Result [facility] [address] [place] [address] * (ABNORMAL) Hemoglobin A1c (06/01/2024 7:11 AM LYE TREATER) Hgb A1C 5.9(H) <5.7 % of total [...] diabetes for children. Blood 06/01/2024 7:11 AM LYE TREATER 06/01/2024 7:11 AM LYE TREATER Narrative [facility] - 06/01/2024 9:56 PM LYE TREATER FASTING:YES FASTING: YES us Inez VELASCO LAB BLOOD ORDERABLES Final Result [email or web address] [employer] [address] [place] [address] * (ABNORMAL) Lipid panel (06/01/2024 7:11 AM LYE TREATER) [facility] Cholesterol 142 <200 mg/dL [facility] shukri Jackson HDL 47(L) > OR = 50 mg/dL [facility] sh[facility] Triglycerides 124 <150 mg/dL [facility] shukri Jackson LDL 74 mg/dL (calc) [facility] shukri Jackson Comment: Reference range: <100 Desirable range <100 mg/dL for primary prevention; <70 mg/dL for patients with CHD or diabetic patients with > or = 2 CHD risk factors. LDL-C is now calculated using the Arley-Devi calculation, which is a validated novel method providing better accuracy than the Friedewald equation in the estimation of LDL-C. Arley COSTA et al. FRANKY. 2013;310(19): 5867-7086 (http://education.[employer]/faq/GKS510) Chol/HDL ratio 3.0 <5.0 (calc) trivagoEmerson Jackson Non-HDL, (LDL+VLDL) 95 <130 mg/dL (calc) [facility] shukri Jackson Comment: For patients with diabetes plus 1 major ASCVD risk factor, treating to a non-HDL-C goal of <100 mg/dL (LDL-C of <70 mg/dL) is considered a therapeutic option. Blood 06/01/2024 7:11 AM LYE TREATER 06/01/2024 7:11 AM LYE TREATER Narrative [facility] - 06/01/2024 9:56 PM LYE TREATER FASTING:YES FASTING: YES us Inez VELASCO LAB BLOOD ORDERABLES Final Result ESTELLA Jackson [address] [place] [address] * Comprehensive metabolic panel (06/01/2024 7:11 AM LYE TREATER) Pathologist [facility] Glucose 98 65 - 99 mg/dL Estella [facility]Emerson Jackson Comment: Fasting reference interval BUN 11 7 - 25 mg/dL [facility] Creatinine 0.75 0.50 - 1.03 mg/dL [facility] eGFR 95 > OR = 60 mL/min/1.7 3m2 [facility] BUN/creat ratio SEE NOTE: 6 - 22 (calc) [facility]Em[facility] Comment: Not Reported: BUN and Creatinine [...] ratio 2.1 1.0 - 2.5 (calc) Estella [facility]S shukri Jackson Bilirubin, total 0.6 0.2 - 1.2 mg/dL Estella [facility]-S shukri Jackson Alk phos 69 37 - 153 U/L [facility]uk[facility] Jackson AST 24 10 - 35 U/L Estella [facility]S shukri Jackson ALT (SGPT) 21 6 - 29 U/L [facility] Blood 06/01/2024 7:11 AM LYE TREATER 06/01/2024 7:11 AM LYE TREATER Narrative [facility] - 06/01/2024 9:56 PM LYE TREATER FASTING:YES FASTING: YES Inez VELASCO LAB BLOOD ORDERABLES Final Result Performing Organization Address City/[facility]/ZIP Co de Phone Number [facility] [place] [address] [place] [address] * (ABNORMAL) COLONOSCOPY (05/26/2021) Historical Provider HEALTH MAINTENANCE Edited Result - Final * ThinPrep Gynecologic Pap Test (Image-guided), Liquid-based Preparation (08/03/2017 12:16 PM LYE TREATER) CLINICAL INFORMATION [facility] HISTORICAL RESULTS Comment:Information not prov ided LMP: 07/[facility] HISTORICAL RESULTS PREV. PAP: [facility] HISTORICAL RESULTS Comment:MANY YEARS AGO PREV. BX: [facility] HISTORICAL RESULTS Comment:INFORMATION NOT PROV IDED SOURCE: [facility] HISTORICAL RESULTS Comment:Cervix, Endocervix STATEMENT OF ADEQUACY: [facility] HISTORICAL RESULTS Comment: Satisfactory for evaluation. Endocervical/transformation zone component present. INTERPRETATION/RESU LT: [facility] HISTORICAL RESULTS Comment:Negative for intraep ithelial lesion or malignancy. COMMENT: [facility] HISTORICAL RESULTS Comment: This Pap test has been evaluated with computer assisted technology. SENIOR JAVASCRIPT ENGINEER: [facility] HISTORICAL RESULTS Comment: YQ, CT(ASCP) CT screening location: [place] [address] [place] [address] 08/03/2017 12:1 6 PM LYE TREATER 08/09/2017 8:55 PM LYE TREATER Narrative [facility] HISTORICAL RESULTS - 08/09/2017 8:41 PM LYE TREATER 0 PERFORMING LAB: [facility] [place] [address] [place] [address] Mahi Mcmahon MD us Historical Provider LAB PATHOLOGY ORDERABLES Final Result Performing Organization Address City/[facility]/ZIP Co de Phone Number [facility] HISTORICAL RESULTS from Last 3 Months or Most Recently Relevant to Health Maintenance Insurance IDPA [facility] MEDICARE ADVANTAGE [facility] MEDICARE ADVANTAGE [facility] MEDICARE [facility] MEDICARE Address: [facility] [address] [place] [address] Advance Directives For more information, please contact: [phone] * Full Code (Latest Code Status on File) Date Activated Date Inactivated Comments 05/29/2022 12:59 PM 05/30/2022 2:26 PM * Full Code Date Activated Date Inactivated Comments 05/28/2022 7:20 PM 05/29/2022 12:59 PM Care Teams Welding Machine Operator Electro Gas Relationship Specialty Start Date End Date Inez New PA [address] [place] [address] PCP - General 09/14/17 Candido Guerin MD [address] [place] [address] Consulting Physician Gastroenterology 05/04/23 Anthony Diez MD [address] [place] [address] Consulting Physician Rheumatology 09/18/24
--- OUTSIDE RECORDS SUMMARY | 2024-10-31 14:26 | XMS_ITS | Encounter Summary ---
Author Organization [facility] Healthcare Address [address] [place] [address] Care Team Providers Care Environmental Services Tech Name Role Phone Inez New Primary Care Provider + [phone] Candido Guerin MD Unavailable [phone] Anthony Diez MD Unavailable [phone] Encounter Details Date Type Department Care Team (Late st Contact Info) Description 10/30/2024 Telephone [facility] Family Medicine [address] [place] [address] Inez New [place] [address] [place] [address] Social History Tobacco Use Types Packs/Day [...] on file Legal Sex 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 Gender Identity Not on file Sexual Orientation Not on file Occupation Industry Job Start Date Job End Date Disabled Not on file Not on file Not on file documented as of this encounter Miscellaneous Notes * Telephone Encounter - Jody Méndez - 10/30/2024 7:58 AM CDT Pt was seen at [facility] ER on 10/29/24 for: Diarrhea Pt discharged with no new medications See Attached Notes Staff will f/u with pt documented in this encounter Plan of Treatment Not on file documented as of this encounter Visit Diagnoses Not on filedocumented in this encounter Care Teams Environmental Services Tech Relationship Specialty Start Date End Date Inez New PA [address] [place] [address] PCP - General 09/14/17 Candido Guerin MD [address] [place] [address] Consulting Physician Gastroenterology 05/04/23 Anthony Diez MD [address] [place] [address] Consulting Physician Rheumatology 09/18/24 documented as of this encounter
--- OUTSIDE RECORDS SUMMARY | 2024-10-31 14:26 | XMS_ITS | Encounter Summary ---
Author Organization [facility] Facility Care Team Providers Care Perfect Binder Feeder Offbearer Name Role Phone Inez New Primary Care Provider [phone] Candido Guerin MD Unavailable [phone] Anthony Diez MD Unavailable [phone] Encounter Details Date Type Department Care Team (Latest Contact Info) Description 09/26/2015 Orders Only [facility]INCON[facility] ProviderVishal MD [address] [place], [place] [id number] Social History Tobacco Use Types Packs/Day Years Used Date Smoking Tobacco: Never Assessed Comments Unknown Sex and Gender Information Value Date Recorded Sex Assigned at Not on file 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
--- OUTSIDE RECORDS SUMMARY | 2024-10-31 14:26 | XMS_ITS | Clinical Summary ---
Author Organization [facility] Address [address] [place] [address] Care Team Providers Care Park Interpreter Name Role Phone Inez New Primary Care Provider [phone] Allergies No known active allergies Medications rosuvastatin [...] - 09/28/2024 10:32 AM CDT Emergency [facility] [place] [address] Nyla Greer MD Gelbaltazar, Vandana Cortes MD [...] PM CDT COLONOSCOPY Routine 05/26/2021 5:23 AM DIRECT MAIL CLERK from Last 3 Months or Most Recently Relevant to Health Maintenance Results * MRI BRAIN WO CON (09/28/2024 9:38 AM CDT) Anatomical Region Laterality Modality Head Magnetic Resonan ce 09/28/2024 9:47 AM CDT Impressions 09/28/2024 9:58 AM CDT IMPRESSION: Normal appearance of the brain. Ordered By: NYLA GREER Interpreted By: Cooper Kraft MD, 09/28/2024 9:47 AM Narrative 09/28/2024 9:58 AM CDT [place] [id number] EXAMINATION: MRI brain without contrast. EXAM DATE/TIME: [...] Procedure Note Cooper Kraft MD - 09/28/[address] [address] EXAMINATION: MRI brain without contrast. EXAM DATE/TIME: [...] 1:37 AM Narrative 09/28/2024 1:42 AM CDT [address] [address] EXAMINATION: CT HEAD WO CON CLINICAL HISTORY: [...] Procedure Note Kurtis Edwards MD - 09/28/[address] [address] EXAMINATION: CT HEAD WO CON CLINICAL HISTORY: [...] AMPHETAMINE (U) NEGATIVE NEGATIVE 12:17 AM CDT [facility] BARBITURATES SCREEN (U) NEGATIVE NEGATIVE 09/28/2024 12:17 AM CDT [facility] BENZODIAZEPINES SCREEN (U) NEGATIVE NEGATIVE 09/28/2024 12:17 AM CDT [facility] CANNABINOIDS SCREEN (U) NEGATIVE NEGATIVE 09/28/2024 12:17 AM CDT [facility] COCAINE METABOLITES (U) NEGATIVE NEGATIVE 09/28/2024 12:17 AM CDT [facility] METHADONE (U) NEGATIVE NEGATIVE 09/28/2024 12:17 AM CDT [facility] OPIATE SCREEN (U) NEGATIVE NEGATIVE 025 12:17 AM CDT [facility] PHENCYCLIDINE PCP (U) NEGATIVE NEGATIVE 09/28/2024 12:17 AM CDT [facility] Comment: NOTE: RESULTS OF THIS DRUG SCREEN SHOULD BE USED FOR MEDICAL PURPOSES ONLY AND NOT FOR LEGAL OR EMPLOYMENT PURPOSES. POSITIVE RESULTS ARE NOT CONFIRMED. MEDICATIONS CONTAINING EPHEDRINE MAY CAUSE FALSE POSITIVE AMPHETAMINE CALL [phone], LAB, TO REQUEST CONFIRMATION TESTING. IF CREATININE IS <40 mg/dL. RECOLLECTION IS SUGGESTED. AMPHETAMINE- 500 NG/ML BARBITURATE- 200 NG/ML BENZODIAZEPINES- 200 NG/ML THC- 50 NG/ML COCAINE- 150 NG/ML METHADONE- 300 NG/ML OPIATE- 300 MG/ML PCP- 25 NG/ML CREATININE (U) 25.6(L) 28 - 217 MG/DL 09/28/2024 12:17 AM CDT [facility] URINE SPECIMEN / Unknown 09/27/2024 11:55 PM CDT us Nyla Greer MD URINE ORDERABLES Lisa hernandez Result [facility] [address] [place] [address], * XR CHEST PORTABLE (09/27/2024 10:40 PM CDT) Anatomical Region Laterality Modality Chest Radiographic Jeanine ging 09/27/2024 10:5 7 PM CDT Impressions 09/27/2024 11:01 PM CDT IMPRESSION: 1. Moderate to large size retrocardiac hiatal hernia. 2. Mild atelectasis in bilateral lower lobes with no other acute pulmonary disease. Referred By: Interpreted By: Ladonna Bang MD, 09/27/2024 10:57 PM Narrative 09/27/2024 11:[address] PM [address] [address] EXAMINATION: XR Portable CXR, 1 View INDICATION: Trauma, fell down steps COMPARISON: CT chest, abdomen and pelvis with contrast 09/27/2024. FINDINGS: There is a moderate to large size retrocardiac hiatal hernia that is better seen on the comparison CT chest exam. quality assurance monitor body leads overlie the chest and included upper abdomen. The cardiomediastinal silhouette is within normal limits. quality assurance monitor body leads overlie the upper abdomen. Pulmonary vascularity is normal. There is mild atelectasis in bilateral lower lobes. Remaining lungs are clear with no acute infiltrate, consolidation, pneumothorax, or pleural effusion. No acute osseous abnormality. Procedure Note Ladonna Bang MD - 09/27/[address] [address] EXAMINATION: XR Portable CXR, 1 View INDICATION: Trauma, fell down steps COMPARISON: CT chest, abdomen and pelvis with contrast 09/27/2024. FINDINGS: There is a moderate to large size retrocardiac hiatal hernia that isbetter seen on the comparison CT chest exam. quality assurance monitor body leadsoverlie the chest and included upper abdomen. The cardiomediastinalsilhouette is within normal limits. quality assurance monitor body leads overlie theupper abdomen. Pulmonary vascularity is [...] 10:2 2 PM CDT Narrative [facility] - 09/28/2024 5:52 AM CDT [facility] [address] Test Date: 2024-09-27 Pat Name: JEREMIAH GORDON Department: 41 Room: [place] [address] Gender: Female Scallop Raker: [id number] : 1970 Requested By: NYLA GREER Order Number: [id number] Reading : Jaz Hinton Measurements Intervals [place]ahan Rate: 77 P: 53 NC: 171 QRS: -20 QRSD: 110 T: 22 QT: 418 QTc: 475 Interpretive Statements SINUS RHYTHM POSSIBLE LEFT ATRIAL ENLARGEMENT [-0.1mV P WAVE IN V1/V2] Compared to ECG 09/01/2018 20:34:51 Intraventricular conduction delay no longer present Procedure Note Jaz Hinton MD - 09/28/2024 [facility] [address] Test Date: 2024-09-27 Pat Name: JEREMIAH GORDON Department: 41 Room: [place] [address] Gender: Female Scallop Raker: [id number] : 1970 Requested By: NYLA GREER Order Number: [id number] Reading DMITRI Hinton Measurements Intervals [place]ahan Rate: 77 P: 53 NC: 171 QRS: -20 QRSD: 110 T: 22 QT: 418 QTc: 475 Interpretive Statements SINUS RHYTHM POSSIBLE LEFT ATRIAL ENLARGEMENT [-0.1mV P WAVE IN V1/V2] Compared to ECG 09/01/2018 20:34:51 Intraventricular conduction delay no longer present us Nyla Greer MD ECG ORDERABLES Final Result [facility] ([facility] * CT CHEST+ABD+PEL W [...] 10:20 PM Narrative 09/27/2024 10:[address]T [address] [address] INDICATION: Trauma, pain, altered mental status COMPARISON: [...] Procedure Note Trey Montero MD - 09/27/[address] [address] INDICATION: Trauma, pain, altered mental status COMPARISON: [...] 10:37 PM Narrative 09/27/2024 10:40 PM CDT [place] [address] INDICATION: Trauma COMPARISON: None TECHNIQUE: Nonenhanced CT [...] Procedure Note Trey Montero MD - 09/27/2024 [place] [address] INDICATION: Trauma COMPARISON: None TECHNIQUE: Nonenhanced CT [...] METABOLIC PANEL (09/27/2024 9:48 PM CDT) Pathologist [facility] GLUCOSE 97 70 - 99 MG/DL 09/27/2024 10:59 PM CDT [facility] BUN 7 7 - 18 MG/DL 09/27/2024 10:59 PM CDT [facility] CREATININE S/P/B 0.58 0.55 - 1.02 MG/DL 09/27/2024 10:59 PM CDT [facility] SODIUM S/P/B 136 136 - 145 MMOL/L 09/27/2024 10:59 PM CDT [facility] POTASSIUM S/P/B 3.7 3.5 - 5.1 MMOL/L 09/27/2024 10:59 PM CDT [facility] CHLORIDE S/P/B 107 97 - 115 MMOL/L 09/27/2024 10:59 PM CDT [facility] CO2 22.5 21 - 32 MMOL/L 09/27/2024 10:59 PM CDT [facility] CALCIUM S/P/B 8.6 8.5 - 10.1 MG/DL 09/27/2024 10:59 PM CDT [facility] BILIRUBIN TOTAL S/P/B 0.4 0.2 - 1.2 MG/DL 09/27/2024 10:59 PM CDT [facility] Comment: THIS ASSAY IS NOT RECOMMENDED FOR PATIENTS UNDERGOING TREATMENT WITH ELTROMBOPAG DUE TO THE POTENTIAL FOR FALSELY ELEVATED RESULTS. TOTAL PROTEIN S/P/B 6.5 6.4 - 8.2 G/DL 09/27/2024 10:59 PM CDT [facility] ALBUMIN S/P/B 3.4 3.4 - 5.0 G/DL 09/27/2024 10:59 PM CDT [facility] AST 22 15 - 37 U/L 09/27/2024 10:59 PM CDT [facility] ALT 22 14 - 55 U/L 09/27/2024 10:59 PM CDT [facility] ALKALINE PHOSPHATASE S/P/B 70 50 - 136 U/L 09/27/2024 10:59 PM CDT [facility] ANION GAP 6.5 2 - 10 MMOL/L 09/27/2024 10:59 PM CDT [facility] BUN CREATININE RATIO 12.0 6 - 26 09/27/2024 10:59 PM CDT [facility] A/G RATIO 1.1 1.0 - 2.0 RATIO 09/27/2024 10:59 PM CDT [facility] GFR ESTIMATE >90 >90 ML/MIN/1.7 3 M2 09/27/2024 10:59 PM CDT [facility] Comment: NOTE: eGFR is not [...] us Nyla Greer MD LABORATORY Final Result [facility] [address] [place] [address], * (ABNORMAL) CBC W/DIFF AUTOMATED (09/27/2024 9:48 PM CDT) [facility] WBC 9.28 4.5 - 11.0 x10'3/uL 09/27/2024 10:04 PM CDT [facility] RBC 4.32 4.20 - 5.40 x10'6/uL 09/27/2024 10:04 PM CDT [facility] HGB 13.9 12.0 - 16.0 G/DL 09/27/2024 10:04 PM CDT [facility] HCT 42.0 38.0 - 48.0 % 09/27/2024 10:04 PM CDT [facility] MCV 97.2 81.0 - 99.0 FL 09/27/2024 10:04 PM CDT [facility] MCH 32.2(H) 27.0 - 31.0 PG 09/27/2024 10:04 PM CDT [facility] MCHC 33.1 32.0 - 36.0 G/DL 09/27/2024 10:04 PM CDT [facility] RDW 14.4 11.5 - 14.5 % 09/27/2024 10:04 PM CDT [facility] PLT 269 130 - 400 x10'3/uL 09/27/2024 10:04 PM CDT [facility] MPV 9.1(L) 9.3 - 12.2 FL 09/27/2024 10:04 PM CDT [facility] DIFFERENTIAL TYPE AUTOMATED DIFFERENTIAL 09/27/2024 10:04 PM CDT [facility] NEUTROPHILS % 61.9 % 09/27/2024 10:04 PM CDT [facility] LYMPHOCYTES % 28.6 % 09/27/2024 10:04 PM CDT [facility] MONOCYTES % 6.7 % 09/27/2024 10:04 PM CDT [facility] EOSINOPHILS 2.0 % 09/27/2024 10:04 PM CDT [facility] BASOPHILS 0.3 % 09/27/2024 10:04 PM CDT [facility] IMMATURE GRANS % 0.5 % 09/28/19 10:04 PM CDT [facility] ABS. NEUTROPHILS 5.74 1.80 - 7.70 x10'3/uL 09/27/2024 10:04 PM CDT [facility] ABS. LYMPHOCYTES 2.65 1.00 - 4.80 x10'3/uL 09/27/2024 10:04 PM CDT [facility] ABS. MONOCYTES 0.62 0.24 - 0.86 x10'3/uL 09/27/2024 10:04 PM CDT [facility] ABS. EOSINOPHILS 0.19 0.04 - 0.36 x10'3/uL 09/27/2024 10:04 PM CDT [facility] ABS. BASOPHILS 0.03 0.01 - 0.08 x10'3/uL 09/27/2024 10:04 PM CDT [facility] ABS. IMMATURE GRANULOCYTES 0.05 0.00 - 0.49 x10'3/uL 09/27/2024 10:04 PM CDT [facility] 09/27/2024 9:48 PM CDT us Nyla Greer MD LABORATORY Final Result [facility] [address] [place] [address], * (ABNORMAL) ETHANOL (09/27/2024 9:48 PM CDT) ALCOHOL S/P/B 0.305(HH) <0.003 G/DL 09/27/2024 10:59 PM CDT [facility] Comment: Critical Result(s) Called at: 22:58:01 on 09/27/2024 by: MARQUIS ROSENBERG to and read back by:DEENA HARRIS 09/27/2024 9:48 PM CDT us Nyla Greer MD LABORATORY Final Result [facility] [address] [place] [address], from Last 3 Months Insurance MEDICAID UHC Care Teams Park Interpreter Relationship Specialty Start Date End Date Inez New [place] [address] [place] [address] PCP - General PHYSICIAN PARKING SUPERVISOR 05/26/21
--- OUTSIDE RECORDS SUMMARY | 2024-10-31 14:26 | XMS_ITS | Encounter Summary ---
Author Organization [facility] Address [address] [place] [address] Care Team Providers Care Stitch Cleaner Name Role Phone Inez New Primary Care Provider + [phone] Candido Guerin MD Unavailable [phone] Anthony Diez MD Unavailable [phone] Encounter Details Date Type Department Care Team (Late st Contact Info) Description 09/04/2024 Results Follow-Up [facility] Family Medicine [address] [place] [address] Inez New [place] [address] [address] Social History Tobacco Use Types [...] on file 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 Gender Identity Not on file Sexual Orientation Not on file Occupation Industry Job Start Date Job End Date Disabled Not on file Not on file Not on file documented as of this encounter Plan of Treatment Not on file documented as of this encounter Visit Diagnoses Not on filedocumented in this encounter Care Teams Stitch Cleaner Relationship Specialty Start Date End Date Inez New [place] [address] [place] [address] PCP - General 09/14/17 Candido Guerin MD [address] [place] [address] Consulting Physician Gastroenterology 05/04/23 Anthony Diez MD [address] [place] [address] Consulting Physician Rheumatology 09/18/24 documented as of this encounter
--- OUTSIDE RECORDS SUMMARY | 2024-10-31 14:26 | XMS_ITS | Encounter Summary ---
Author Organization [facility] Care Team Providers Care Customs Port Director Name Role Phone Inez New Primary Care Provider [phone] Candido Guerin MD Unavailable [phone] Anthony Diez MD Unavailable [phone] Encounter Details Date Type Department Care Team (Latest Contact Info) Description 10/01/2016 Orders Only [facility] CLINCONV ProviderVishal MD [address] [place], [place] [id number] Social History Tobacco Use Types Packs/Day Years Used Date Smoking Tobacco: Never Assessed Comments Unknown Sex and Gender Information Value Date Recorded Sex Assigned at Not on file 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
--- OUTSIDE RECORDS SUMMARY | 2024-10-31 14:26 | XMS_ITS | Encounter Summary ---
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
--- OUTSIDE RECORDS SUMMARY | 2024-10-31 14:26 | XMS_ITS | Encounter Summary ---
Author Organization [facility] Facility Care Team Providers Care Burr Machine Operator Name Role Phone Inez New Primary Care Provider [phone] Candido Guerin MD Unavailable [phone] Anthony Diez MD Unavailable [phone] Encounter Details Date Type Department Care Team (Latest Contact Info) Description 10/07/2017 Orders Only [facility] CLINCONV ProviderVishal MD [address] [place] [address] Social History Tobacco Use Types Packs/Day Years Used Date Smoking Tobacco: Never Assessed Comments Unknown Sex and Gender Information Value Date Recorded Sex Assigned at Not on file 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
== END 2024-10-31 13:33 | disposition home or self-care (01) ==
LOC: ANHLAB 13:33
PROVIDERS: PCP Physician Assistant; Visit Provider Nurse Practitioner
DX: K62.5 Hemorrhage of anus and rectum (principal)
CPT/HCPCS: 36415; 85027

== ENCOUNTER 2024-11-02 14:53 | Outpatient (CLI) | payer MEDICARE, MEDICAID, SELFPAY ==
[2024-11-02 16:14] LABS: Toxigenic C. Diff NEGATIVE (NEGATIVE)
--- OUTSIDE RECORDS SUMMARY | 2024-11-03 14:42 | XMS_ITS | Encounter Summary ---
Author Organization [facility] Address [address] [place] [address] Care Team Providers Care Steward/Stewardess Name Role Phone Inez New Primary Care Provider + [phone] Candido Guerin MD Unavailable [phone] Anthony Diez MD Unavailable [phone] Encounter Details Date Type Department Care Team (Late st Contact Info) Description 09/04/2024 Results Follow-Up 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 Gender Identity Not on file Sexual Orientation Not on file Occupation Industry Job Start Date Job End Date Disabled Not on file Not on file Not on file documented as of this encounter Plan of Treatment Not on file documented as of this encounter Visit Diagnoses Not on filedocumented in this encounter Care Teams Steward/Stewardess Relationship Specialty Start Date End Date Inez New PA [address] [place] [address] PCP - General 09/14/17 Candido Guerin MD [address] [place] [address] Consulting Physician Gastroenterology 05/04/23 Anthony Diez MD [address] [place] [address] Consulting Physician Rheumatology 09/18/24 documented as of this encounter
--- OUTSIDE RECORDS SUMMARY | 2024-11-03 14:42 | XMS_ITS | Encounter Summary ---
Author Organization 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 us Historical Provider MD Final Res ult * PROCEDURE - RESULT [...] documented as of this encounter Care Teams Phlebotomist Prn Relationship Specialty Start Date End Date Inez New PA [address] [place] [address] PCP - General 09/14/17 Candido Guerin MD [address] [place] [address] Consulting Physician Gastroenterology 05/04/23 Anthony Diez MD [address] [place] [address] Consulting Physician Rheumatology 09/18/24 documented as of this encounter
--- OUTSIDE RECORDS SUMMARY | 2024-11-03 14:42 | XMS_ITS | Encounter Summary ---
Author Organization [facility] Healthcare Address [address] [place] [address] Care Team Providers Care Bonding And Composite Fabricator Name Role Phone Inez New Primary Care Provider [phone] Candido Guerin MD Unavailable [phone] Anthony Diez MD Unavailable [phone] Reason for Visit * Reason Comments Abnormal ECG New Patient Encounter Details Date Type Department Care Team (Late st Contact Info) Description 11/01/2024 10:00 AM CDT Office Visit [facility] Cardiology [address] [place] [phone] Abdullahi Vogel MD [address] [address] Abnormal ECG (Primary Dx) Social History Tobacco Use Types Packs/Day Years [...] file 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 Gender Identity Not on file Sexual Orientation Not on file Occupation Industry Job Start Date Job End Date Disabled Not on file Not on file Not on file documented as of this encounter Last Filed Vital Signs Vital Sign Reading Time Taken Comments Blood Pressure 110/70 11/01/2024 9:58 AM CDT Pulse 65 11/01/2024 9:58 AM CDT Temperature - - Respiratory Rate 16 11/01/2024 9:58 AM CDT Oxygen Saturation 98% 11/01/2024 9:58 AM CDT Inhaled Oxygen Concentration - - Weight 101.2 kg (223 lb) 11/01/2024 9:58 AM CDT Height 154.9 cm (5' 1 ) 11/01/2024 9:58 AM CDT Body Mass Index 42.14 11/01/2024 9:58 AM CDT documented in this encounter Progress Notes * Abdullahi Vogel MD - 11/01/2024 10:00 AM CDT [facility] CARDIOLOGY CHIEF COMPLAINT / REASON FOR CONSULT: Abnormal EKG REFERRAL: Dr. New HISTORY: Nieves Gordon is a 54 y.o. female with diabetes and hypertension was referred for abnormalEKG along with strong family history of cardiac conditions. 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 She has no chest pain or shortness breath. No orthopnea. She uses a CPAP at night for her SHERRY. She used to be able to ambulate 2 miles nonstop however due to ankle injuries have stopped for the past year and has plans to resume this year. Exercise Tolerance: Can we will 1 lawn per day with a lawnmower that she pushes Social: Family History: Medications: Rosuvastatin 20 mg every evening Nebivolol 5 mg p.o. daily Lisinopril 20 mg p.o. daily Metformin REVIEW OF SYSTEMS: GENERAL: As per HPI CVS: As per HPI HEME: No bruising, no bleeding PHYSICAL EXAMINATION: There were no vitals taken for this visit. GENERAL: Alert, in no distress HEAD: Normocephalic and atraumatic EYES: Extraocular movement intact ENT: Unremarkable NECK: no jugular venous distention CHEST: Clear to auscultation, no wheezes, rales or rhonchi, symmetric air entry CARDIAC: Regular rate and rhythm, S1 S2 normal, no murmur, rub, heaves, thrills or gallops ABDOMEN: soft, nontender, no bruit EXTREMITIES: No edema PERIPHERAL PULSES: Peripheral pulses symmetrical SKIN: Warm and dry NEURO: Alert and oriented x 3 LABS: Lab Results Component Value Date CHOL 142 06/01/2024 CHOL 156 03/01/2024 CHOL 106 03/31/2023 Lab Results Component Value Date HDL 47 (L) 06/01/2024 HDL 47 (L) 03/01/2024 HDL 33 (L) 03/31/2023 No results found for: LDLCALC Lab Results Component Value Date TRIG 124 06/01/2024 TRIG 228 (H) 03/01/2024 TRIG 143 03/31/2023 Lab Results Component Value Date CHOLHDL 3.0 06/01/2024 CHOLHDL 3.3 03/01/2024 CHOLHDL 3.2 03/31/2023 Lab Results Component Value Date HGBA1C 5.9 (H) 06/01/2024 HGBA1C 6.8 (H) 03/01/2024 HGBA1C 4.8 03/31/2023 EK11/01/2024 EKG done in clinic today shows sinus rhythm with a ventricular rate of 60 beats per minute. Normal AV conduction. Normal depolarization and repolarization pattern. This is similar to previous CARDIAC IMAGING RESULTS REVIEW: Echo Cardiac CT Stress Test Cardiac Monitors 09/2016: 24 hour monitor was unremarkable Cath CTA Head/Neck 07/2024 - patent vessels ASSESSMENT/PLAN: 54 y.o. female with diabetes and hypertension was referred for abnormal EKG along with strong family history of cardiac conditions Abnormal EKG -Today she has normal depolarization and repolarization pattern -I have reviewed her previous EKGs in the poor R-wave progression that was read as possible anterior infarct was likely secondary to lead placement -Given her excellent exertional capacity, no further cardiac workup is warranted at this time Hypertension -Well-controlled on lisinopril 20 mg p.o. daily Hyperlipidemia -Continue rosuvastatin 20 mg every evening Diabetes -Medical management per her primary physician -An echocardiogram was ordered for her and we will have this performed here today RTC in 1 year to discuss preventative cardiology care Abdullahi Vogel MD documented in this encounter Miscellaneous Notes * Addendum Note - Mark Pelletier MA - 11/01/2024 10:00 AM CDTAddended by: MARK PELLETIER on: 11/01/2024 10:27 AM Modules accepted: Orders documented in this encounter Plan of Treatment Not on file documented as of this encounter Procedures Procedure Name Priority Date/Time Associated Diagnosis Comments ELECTROCARDIOGRAM REPORT Routine 025 10:27 AM CDT Abnormal ECG documented in this encounter Results * Electrocardiogram Report (11/01/2024 10:27 AM CDT) Abdullahi Vogel MD ECG ORDERABLES Final Result documented in this encounter Visit Diagnoses Diagnosis Abnormal ECG- Primary Nonspecific abnormal electrocardiogram (ECG) (EKG) documented in this encounter Historical Medications * This list may reflect changes made after this encounter. doxycycline hyclate 100 mg capsule Take 1 tablet/capsule (100 mg total) by mouth daily 08/30/2024 metroNIDAZOLE (METROGEL) 0.75 % gel Apply topically 2 (two) times a day 10/10/2024 dicyclomine (BENTYL) 10 mg capsule Take 1 capsule (10 mg total) by mouth 3 (three) times a day 10/12/2024 added in this encounter Care Teams Bonding And Composite Fabricator Relationship Specialty Start Date End Date Inez New PA [address] [place] [address] PCP - General 09/14/17 Candido Guerin MD [facility] [address] Consulting Physician Gastroenterology 05/04/23 Anthony Diez MD [address] [place] [address] Consulting Physician Rheumatology 09/18/24 documented as of this encounter
--- OUTSIDE RECORDS SUMMARY | 2024-11-03 14:42 | XMS_ITS ---
Author Organization [facility] [employer] [facility] Address [facility] [address] Care Team Providers Care General Utility Worker Name Role Phone Rachell New PA-C Primary Care Provider Unav Kacy Hunt Unavailable [phone] Ale Benedict Unavailable [phone] REASON FOR VISIT Therapy Visit Social History Sex Assigned At : Social History Observation Description Sex Assigned At Female Encounters En[facility] Date [facility] [place] [id number] [address] 10/15/2024 Ale Ramirez Plan Of Treatment Next Appt Details Provider Name:Ale Ramirez, 11/16/2024 08:00:00 AM, [address] [facility], [address], [phone], Provider Name:Kacy brown, 11/19/2024 09:00:00 AM, [address] [facility], [address], [address], Provider Name:Ale Ramirez, 12/20/2024 08:00:00 AM, [address], [phone], Progress Notes * KEESHA RUCKERB:1970 ( 54 yo F)Acc No.[id number]:10/15/2024 Patient: JEREMIAH MERCADO Provider: Sebastian RAMIREZ LCSW :1970 A ge:54 Y S ex:Female Date:10/15/2024 Address:[address] [place] [address] Pcp:Rachell New PA-C Data: * Chief Complaints: * 1 . Therapy Visit. Assessment: Plan: * Treatment: * Billing Information: * Visit Code: * Procedure Codes: * Electronic signature of Roberta Ramirez LCSW on 11/03/2024 at 02:42 PM CDT Sign off status: Pending Signatures: No Ad Hoc Signature Added * Provider: Sebastian RAMIREZ LCSW Date: 0 10/15/2024 Generated for Verna callahan/Katia/Avila on: 0 11/03/2024 02:42 PM CDT
--- OUTSIDE RECORDS SUMMARY | 2024-11-03 14:42 | XMS_ITS | Encounter Summary ---
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
--- OUTSIDE RECORDS SUMMARY | 2024-11-03 14:42 | XMS_ITS | Encounter Summary ---
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
--- OUTSIDE RECORDS SUMMARY | 2024-11-03 14:42 | XMS_ITS | Clinical Summary ---
Author Organization [facility] [address] [facility] Address [address] [place] [address] Care Team Providers Care Equipment Man Name Role Phone Inez New Primary Care Provider [phone] Candido Guerin MD Unavailable [phone] Anthony Diez MD Unavailable [phone] Allergies No known active allergies Medications magnesium [...] s:Chronic obstructive pulmonary disease, unspecified COPD type ([facility]) Inhale 1 puff daily Rinse [...] DAILY 90 tablet 1 10/16/19 25 Active dicyclomine (BENTYL) 10 mg capsule Take 1 capsule (10 mg total) by mouth 3 (three) times a day 10/13/19 25 Active metroNIDAZOLE (METROGEL) 0.75 % gel Apply topically 2 (two) times a day 10/11/19 25 Active doxycycline hyclate 100 mg capsule Take 1 tablet/capsul e (100 mg total) by mouth daily 08/30/19 25 Active rosuvastatin (CRESTOR) 20 mg tabletIndications :Hyperlipidemia, unspecified hyperlipidemia type Take 1 tablet (20 mg total) by mouth daily 08/13/19 25 2024 Discontinued lisinopriL (PRINIVIL,ZESTRIL ) 20 mg tablet Take 1 tablet (20 mg total) by mouth daily 90 tablet 08/15/19 25 2024 Discontinued Active Problems Problem Noted Date Diagnosed Date Dizziness 08/26/2024 Assessment & Plan (08/26/2024 4:47 PM PACK OPERATOR): This is a significant, separately identifiable [...] 08/26/2024 Assessment & Plan (08/26/2024 4:46 PM PACK OPERATOR): Encouraged healthy lifestyle, good nutrition and exercise. Encouraged Calcium and Vitamin D and weight bearing exercise for bone health. Reviewed immunizations Reviewed age appropirate screenings. Hypertension associated with diabetes 08/15/2024 Assessment & Plan (08/26/2024 4:38 PM PACK OPERATOR): Blood pressure still isn't perfectly controlled. Continue with the lisinopril 20. She has not been taking the propranolol so will switch to Bystolic 5 for a q.d. dosing and see how she does. Call in a week with readings. BMI 40.0-44.9, adult 06/11/2024 Assessment & Plan (08/15/2024 10:04 AM PACK OPERATOR): Discussed the patient's BMI. The BMI is above average. BMI management plan is completed. BMI Follow-up includes: nutrition counseling, exercise counseling and education provided. Assessment & Plan (08/01/2024 11:21 AM PACK OPERATOR): Discussed the patient's BMI. The BMI is above average. BMI management plan is completed. BMI Follow-up includes: nutrition counseling, exercise counseling and education provided. Assessment & Plan (06/11/2024 12:16 PM PACK OPERATOR): Discussed the patient's BMI. The BMI is above average. BMI management plan is completed. BMI Follow-up includes: nutrition counseling, exercise counseling and education provided. Elevated TSH 03/17/2024 Assessment & Plan (03/18/2024 8:08 PM CDT): Check labs Abnormal thyroid screen (blood) 03/17/2024 Type 2 diabetes mellitus wit hout complication, without long-term current use of insulin 03/17/2024 Assessment & Plan (08/26/2024 4:37 PM PACK OPERATOR): Stressed importance of continued A1c control [...] 5.8 Assessment & Plan (08/13/2024 1:18 PM PACK OPERATOR): Stressed importance of continued A1c control to minimize the certified nurse midwife effects of diabetes. Bring accuchecks to office when instructed to do so. Check A1c about every 3-6 months. Take medication as prescribed. Get annual eye exam. Encouraged GLENDY/Statin if able to tolerate. Encouraged weight control and encouraged diabetic diet and exercise. A1c is nicely controlled at 5.9. Continue metformin 500 mg Assessment & Plan (06/11/2024 12:15 PM PACK OPERATOR): Stressed importance of continued A1c control to minimize the certified nurse midwife effects of diabetes. Bring accuchecks to office [...] Discussed with patient at length diabetes, pathogenesis, halfway sequela, end organ damage, diet/exercise/weight loss, and [...] feet on a regular basis to avoid certified nurse midwife problems. Offered referral to full stack engineer. Start metformin 500 mg 1 tablet [...] referral Assessment & Plan (09/07/2023 10:34 PM PACK OPERATOR): Ears are clear. Suspect eustachian tube dysfunction. Recommend Flonase, mucinex and antihistamine. If symptoms persist, may need ENT referral. Morbid obesity 07/22/2022 Assessment & Plan (08/26/2024 4:37 PM PACK OPERATOR): Discussed the patient's BMI. The BMI is above average. BMI management plan is completed. BMI Follow-up includes: nutrition counseling, exercise counseling and education provided. Assessment & Plan (08/01/2024 11:22 AM PACK OPERATOR): Discussed the patient's BMI. The BMI is above average. BMI management plan is completed. BMI Follow-up includes: nutrition counseling, exercise counseling and education provided. Assessment & Plan (06/11/2024 12:15 PM PACK OPERATOR): Discussed the patient's BMI. The BMI is above average. BMI management plan is completed. BMI Follow-up includes: nutrition counseling, exercise counseling and education provided. Assessment & Plan (03/18/2024 8:06 PM CDT): Discussed the patient's BMI. The BMI is above average. BMI management plan is completed. BMI Follow-up includes: nutrition counseling, exercise counseling and education provided. Assessment & Plan (09/07/2023 10:31 PM PACK OPERATOR): Discussed the patient's BMI. The BMI is above average. BMI management plan is completed. BMI Follow-up includes: nutrition counseling, exercise counseling and education provided. Patient has an obesity-related condition (not limited to: hypertension, obstructive sleep apnea, osteoarthritis, hyperlipidemia, diabetes, etc.). Therefore, morbid obesity may be documented for patients with a BMI between 35.00-39.99. Assessment & Plan (05/21/2023 3:46 PM PACK OPERATOR): Discussed the patient's BMI. The BMI is above average. BMI management plan is completed. BMI Follow-up includes: nutrition counseling, exercise counseling and education provided. Patient has an obesity-related condition (not limited to: hypertension, obstructive sleep apnea, osteoarthritis, hyperlipidemia, diabetes, etc.). Therefore, morbid obesity may be documented for patients with a BMI between 35.00-39.99. Assessment & Plan (07/22/2022 2:01 PM PACK OPERATOR): Discussed the patient's BMI. The BMI is above average. BMI management plan is completed. BMI Follow-up includes: nutrition counseling, exercise counseling and education provided. Patient has an obesity-related condition (not limited to: hypertension, obstructive sleep apnea, osteoarthritis, hyperlipidemia, diabetes, etc.). Therefore, morbid obesity may be documented for patients with a BMI between 35.00-39.99. Symptomatic anemia 05/28/2022 Assessment & Plan (09/07/2023 10:29 PM PACK OPERATOR): Known anemia. Has had transfusion. Continue [...] Guajardo Assessment & Plan (06/14/2020 5:55 PM PACK OPERATOR): Refer back to Ortho. Offered PT. [...] 09/11/2019 Assessment & Plan (06/11/2024 12:15 PM PACK OPERATOR): Mammogram order provided Assessment & Plan (08/23/2021 9:43 PM PACK OPERATOR): Mammogram order provided Assessment & Plan (09/26/2020 8:30 PM CDT): Mammogram order provided Assessment & Plan (09/11/2019 9:21 AM CDT): Mammogram order provided Sciatica of right side 06/17/2019 Assessment & Plan (06/17/2019 6:14 PM PACK OPERATOR): Voltaren gel Exercise/Start PT Followup if [...] therapy. Will still change neurology referral from [place] to [place] as patient able to arranage transportation easier. [...] 09/2018 Assessment & Plan (08/26/2024 4:36 PM PACK OPERATOR): Encouraged patient to follow low fat/low chol diet like the Mediterranean diet. Increase good fats in the diet. Increase exercise. Monitor labs as needed. Continue Crestor Assessment & Plan (08/13/2024 1:17 PM PACK OPERATOR): Encouraged patient to follow low fat/low chol diet like the Mediterranean diet. Increase good fats in the diet. Increase exercise. Monitor labs as needed. Continue Crestor Assessment & Plan (06/11/2024 11:51 AM PACK OPERATOR): Stressed importance of continued A1c control to minimize the certified nurse midwife effects of diabetes. Bring accuchecks to office [...] Crestor Assessment & Plan (09/07/2023 10:30 PM PACK OPERATOR): Encouraged patient to follow low fat/low chol diet like the Mediterranean diet. Increase good fats in the diet. Increase exercise. Monitor labs as needed. Continue with Crestor Assessment & Plan (05/21/2023 3:44 PM PACK OPERATOR): Encouraged patient to follow low fat/low chol diet like the Mediterranean diet. Increase good fats in the diet. Increase exercise. Monitor labs as needed. Continue Crestor Assessment & Plan (07/22/2022 1:49 PM PACK OPERATOR): Encouraged patient to follow low fat/low chol diet like the Mediterranean diet. Increase good fats in the diet. Increase exercise. Monitor labs as needed. Continue Crestor Assessment & Plan (08/23/2021 9:42 PM PACK OPERATOR): Encouraged patient to follow fat/low chol [...] 12/04/2018 Assessment & Plan (06/11/2024 12:15 PM PACK OPERATOR): Encouraged smoking cessation. Discussed 3 minutes. Reviewed options for assistance with cessation. Reviewed certified nurse midwife sequela associated with smoking. Pt declines assistance [...] point Assessment & Plan (09/07/2023 10:30 PM PACK OPERATOR): Encouraged smoking cessation. Discussed 3 minutes. Reviewed options for assistance with cessation. Reviewed certified nurse midwife sequela associated with smoking. Pt declines assistance at this time but may contact the office at anytime for further help as they desire. Assessment & Plan (07/22/2022 1:47 PM PACK OPERATOR): Encouraged smoking cessation. Discussed 3 minutes. Reviewed options for assistance with cessation. Reviewed halfway sequela associated with smoking. Pt declines assistance at this time but may contact the office at anytime for further help as they desire. Assessment & Plan (08/23/2021 9:42 PM PACK OPERATOR): Encouraged smoking cessation. Discussed 3 minutes. [...] desire. Assessment & Plan (06/14/2020 5:55 PM PACK OPERATOR): Encouraged smoking cessation. Discussed 3 minutes. Reviewed options for assistance with cessation. Reviewed certified nurse midwife sequela associated with smoking. Pt declines assistance at this time but may contact the office at anytime for further help as they desire. Assessment & Plan (03/15/2020 11:10 AM CDT): Encouraged smoking cessation. Discussed 3 minutes. Reviewed options for assistance with cessation. Reviewed certified nurse midwife sequela associated with smoking. Pt declines assistance [...] desire. Assessment & Plan (06/17/2019 6:16 PM PACK OPERATOR): Encouraged smoking cessation. Discussed 3 minutes. [...] 12/04/2018 Assessment & Plan (06/11/2024 12:15 PM PACK OPERATOR): Continue PPI Assessment & Plan (03/18/2024 8:05 PM CDT): Patient has been following closely with Dr. Guerin GI. She transferred and saw Dr. Nath and had an EGD done. States at this point her symptoms are pretty stable so will just continue to monitor continuing the Bentyl as needed and continue PPI p.r.n. Assessment & Plan (05/21/2023 3:44 PM PACK OPERATOR): Continue PPI p.r.n.. Continue per GI Assessment & Plan (07/22/2022 1:47 PM PACK OPERATOR): Continue per Dr. Guerin. She is currentl on omeprazole sucralfate. Will await his recommendations Assessment & Plan (08/23/2021 9:42 PM PACK OPERATOR): Continue PPI. She is unsure if the Dexilant will continue to be covered by her insurance so she will contact us with the letter she has at home with her options. Assessment & Plan (04/08/2021 2:55 PM CDT): Increased reflux symptoms. She is currently on Dexilant. Encouraged to continue with the same regimen. Will refer her to GI Dr. Zamora at [place] she is due for colonoscopy and may [...] 12/04/2018 Assessment & Plan (06/11/2024 12:15 PM PACK OPERATOR): Supplement Assessment & Plan (03/18/2024 8:06 PM CDT): Supplement Assessment & Plan (09/07/2023 10:30 PM PACK OPERATOR): Supplement Assessment & Plan (05/21/2023 3:44 PM PACK OPERATOR): Supplement Assessment & Plan (07/22/2022 1:47 PM PACK OPERATOR): Supplement Assessment & Plan (09/26/2020 8:14 PM CDT): supplement Assessment & Plan (09/11/2019 9:18 AM CDT): supplement Assessment & Plan (01/30/2019 1:02 PM CDT): supplement COPD (chronic obstructive pulmonary disease) 09/2018 Assessment & Plan (08/26/2024 4:37 PM PACK OPERATOR): COPD symptoms have been stable. Continue Breo and albuterol p.r.n. Assessment & Plan (08/13/2024 1:18 PM PACK OPERATOR): Continue with albuterol and Breo as breathing is stable Assessment & Plan (06/11/2024 12:15 PM PACK OPERATOR): Encouraged complete smoking cessation. Continue Breo and albuterol as needed Assessment & Plan (03/18/2024 8:06 PM CDT): Encouraged complete smoking cessation. Continue albuterol nebs and Breo as needed. Assessment & Plan (09/07/2023 10:30 PM PACK OPERATOR): Patient with COPD. Continue with albuterol and Breo. Assessment & Plan (05/21/2023 3:44 PM PACK OPERATOR): Continue Symbicort and albuterol p.r.n. continue Flonase Assessment & Plan (07/22/2022 1:47 PM PACK OPERATOR): Stressed smoking cessation. Continue Symbicort albuterol inhaler nebulizer p.r.n. Assessment & Plan (07/27/2021 7:15 AM PACK OPERATOR): Continues Symbicort/prn albuterol Still requires Neb [...] basis as instructed. New prescription sent to [facility]. [id number] completed today Assessment & Plan (09/26/2020 8:14 PM CDT): Continue Symbicort and Albuterol prn Assessment & Plan (03/15/2020 11:10 AM CDT): Continue current regimen. Stop smoking Assessment & Plan (09/11/2019 9:18 AM CDT): STOP smoking. Continue with current regimen inhalers Albuterol/Symbicort Assessment & Plan (01/30/2019 12:54 PM CDT): Continue with Symbicort SHERRY (obstructive sleep apnea) 12/02/2018 Assessment & Plan (08/26/2024 4:36 PM PACK OPERATOR): Patient has been diagnosed with SHERRY. Awaiting titration study for treatment plan. Continue per Dr. Manuel Assessment & Plan (06/11/2024 11:43 AM PACK OPERATOR): Patient has established with Dr. Manuel. She had her sleep study test that did confirm sleep apnea. Awaiting the titration study Assessment & Plan (03/18/2024 8:03 PM CDT): Patient was diagnosed with sleep apnea at [facility] with Dr. Joseph. She would not wear the mask so sent the machine back. Has been untreated for many years. Continues to snore and have daytime sleepiness. Strongly encouraged re- evaluation. Willing to see Dr. Manuel at [facility]. Referral placed Assessment & Plan (09/07/2023 10:30 PM PACK OPERATOR): Continue with CPAP Assessment & Plan (07/22/2022 1:36 PM PACK OPERATOR): Continue CPAP Assessment & Plan (04/08/2021 [...] 12/02/2018 Assessment & Plan (08/13/2024 1:17 PM PACK OPERATOR): Continue to follow with Shakira in [place] Dr. Etienne's office. She stopped her clonazepam [...] acutely. Assessment & Plan (06/11/2024 11:43 AM PACK OPERATOR): Continue per psychiatrist. She continues to take out her medications and they are updated on her chart Assessment & Plan (03/18/2024 8:04 PM CDT): Continue following with her psychiatrist for management of her mental health concerns. Assessment & Plan (09/07/2023 10:30 PM PACK OPERATOR): Continue per Psychiatry. Current medications include Klonopin Ingrezza Lexapro Vraylar 6 mg Lamictal and lithium Assessment & Plan (05/21/2023 3:45 PM PACK OPERATOR): Continue per psychiatrist Assessment & Plan (07/22/2022 1:45 PM PACK OPERATOR): Continue per psychiatrist. Patient states she is on clonazepam, latuda, Hydroxyzine, Cymbalta and Lexapro Assessment & Plan (08/23/2021 9:42 PM PACK OPERATOR): Per psychiatrist Assessment & Plan (04/08/2021 2:58 PM CDT): Continue per Psychiatry Assessment & Plan (06/14/2020 5:56 PM PACK OPERATOR): Unsure of exact diagnosis. Medication/treatment plan [...] 08/26/2024 Assessment & Plan (08/13/2024 1:19 PM PACK OPERATOR): Advised patient it is difficult to know if she has true hypertension versus anxiety/panic. Recommend doing home readings and calling us in a couple of weeks with those readings. If she can not do them at home she can always come in but I know transportation is sometimes difficult. Need for influenza vaccination 06/11/2024 08/26/2024 Assessment & Plan (06/11/2024 12:16 PM PACK OPERATOR): Flu vaccine updated in the office today Annual physical exam 06/11/2024 025 Assessment & Plan (06/11/2024 12:16 PM PACK OPERATOR): Encouraged healthy lifestyle, good nutrition and [...] 03/17/2024 Assessment & Plan (09/07/2023 10:31 PM PACK OPERATOR): Encouraged healthy lifestyle, good nutrition and exercise. Encouraged Calcium and Vitamin D and weight bearing exercise for bone health. Reviewed immunizations. Reviewed age appropirate screenings. Medicare Wellness Documentation is completed within the chart BMI 38.0-38.9,adult 05/21/2023 09/07/19 24 Assessment & Plan (05/21/2023 3:46 PM PACK OPERATOR): Discussed the patient's BMI. The BMI is above average. BMI management plan is completed. BMI Follow-up includes: nutrition counseling, exercise counseling and education provided. BMI 39.0-39.9,adult 07/22/2022 05/04/20 23 Assessment & Plan (07/22/2022 1:48 PM PACK OPERATOR): Discussed the patient's BMI. The BMI is above average. BMI management plan is completed. BMI Follow-up includes: nutrition counseling, exercise counseling and education provided. Need for vaccination 07/22/2022 024 Assessment & Plan (05/21/2023 3:46 PM PACK OPERATOR): Flu vaccine updated in the office Assessment & Plan (07/22/2022 1:48 PM PACK OPERATOR): Flu vaccine at the office today Encounter for screening mamm ogram for malignant neoplasm of breast 07/22/2022 09/07/2023 Assessment & Plan (07/22/2022 1:48 PM PACK OPERATOR): Mammogram order provided Bloody diarrhea 04/08/2021 [...] 09/07/2023 Assessment & Plan (07/22/2022 1:48 PM PACK OPERATOR): Encouraged healthy lifestyle, good nutrition and [...] 2016. Prefers to see a provider at [facility]. She is also having burning in the [...] 01/14/20212022 Assessment & Plan (08/23/2021 9:43 PM PACK OPERATOR): Obesity is unchanged. Discussed the patient's [...] 07/22/19 Assessment & Plan (07/27/2021 7:21 AM PACK OPERATOR): Obesity is unchanged. Discussed the patient's [...] onset of sxs. Check COVID test thru [facility] collection site in [place]. Treat sxs with Tylenol, Cough/cold medication otc [...] water often. If needed, use a hand district agent that contains at least 60% alcohol. Clean [...] 04/08/2021 Assessment & Plan (07/22/2020 11:47 AM PACK OPERATOR): Declines covid 19 testing at this time. Will start on ceftin 500mg bid x 7 days. She was advised to report to office if having otorrhea or worsening of symptoms. Need for immunization against influenza 06/14/2020 02/17/2021 Assessment & Plan (06/14/2020 5:57 PM PACK OPERATOR): Updated in office today BMI 37.0-37.9, adult 06/10/2020 024 Assessment & Plan (09/07/2023 10:31 PM PACK OPERATOR): Discussed the patient's BMI. The BMI is above average. BMI management plan is completed. BMI Follow-up includes: nutrition counseling, exercise counseling and education provided. Assessment & Plan (06/10/2020 1:35 PM PACK OPERATOR): Obesity is unchanged. Discussed the patient's BMI. The BMI is above average. BMI management plan is completed. BMI Follow-up includes: nutrition counseling, exercise counseling and education provided.Obesity is unchanged. Discussed the patient's BMI. Positive depression screening 06/10/2020 08/26/2024 Assessment & Plan (07/22/2020 11:47 AM PACK OPERATOR): Continue medication same Assessment & Plan (06/14/2020 5:56 PM PACK OPERATOR): Pt denies any suicidal or homicidal [...] 03/17/2024 Assessment & Plan (09/07/2023 10:30 PM PACK OPERATOR): Probably multifactorial. Check labs and followup to re-evaluate Assessment & Plan (09/11/2019 9:21 AM CDT): Probably multifactorial. Check labs and followup to re-evaluate Hyperglycemia 09/11/2019 03/06/2024 Assessment & Plan (09/07/2023 10:30 PM PACK OPERATOR): Pre-diabetes/hyperglycemia is a precursor to Dm. [...] Encounters Date Type Department Care Team Description 11/01/2024 10:00 AM CDT Office Visit [facility] [address] [place] [id number] Abdullahi Vogel MD Abnormal ECG (Primary Dx) 10/30/2024 Telephone [facility] [address] [facility] [address] [place] [address] Inez New PA 10/15/2024 Telephone [facility] [address] [place] [address] [address] [place] [address] Sandy Ramirez MA Successful Phone Call (MED ADHERENCE) 10/03/2024 Orders Only [facility] Health Information Management [address] [place] [address] Scanning, Provider 10/02/2024 Orders Only [facility] [address] [facility] [facility] [address] [place] [address] Inez New PA Enlarged liver (Primary Dx); Bile duct abnormality 09/28/2024 Telephone [facility] [address] [facility] [place] [address] Inez New PA 09/27/2024 Orders Only [facility] Health Information Management [address] [place] [address] Inez New PA 09/24/2024 Documentation [facility] [address] [place] [address] Tessie Rice MA 09/21/2024 Telephone [facility] Accountable Care Organization [address] [place] [address] Antonella Costa Chart Review ([facility] Med Adherence ) 09/11/2024 Orders Only [facility] at [place] [id number] [facility] [address] [place] [address] Inez New PA Need for RSV vaccination (Primary Dx) 09/05/2024 Orders Only [address] [place] [address] Inez New PA Positive HARRIETT (antinuclear antibody) (Primary Dx) 09/05/2024 Orders Only [address] [place] [address] Inez New PA Positive HARRIETT (antinuclear antibody) (Primary Dx) 09/04/2024 Results Follow-Up [address] [place] [address] Inez New PA 08/28/2024 Orders Only [address] [place] [address] Inez New PA Dizziness (Primary Dx); Persistent headaches 08/28/2024 Orders Only [address] [place] [address] Inez New PA Facial rash (Primary Dx) 08/24/2024 Orders Only [facility] Health Information Management [address] [place], [place] [phone] Inez New PA 08/24/2024 Telephone [facility] [address] [place], [place] [phone] Jeffy Manuel MD Cpap titration results / cpap order 08/23/2024 7:47 PM PACK OPERATOR - 08/23/2024 11:59 PM PACK OPERATOR Hospital Encounter [facility] [address] [place], [place] [phone] SHERRY (obstructive sleep apnea) Discharge Disposition: Discharge to home or self care 08/23/[address] [place] [address] Inez New PA 08/23/[address] [place] [phone] Inez New PA Medication Request 08/23/[address] [place] [phone] Inez New PA 08/20/[address] [place] [phone] Inez New PA 08/15/2024 10:00 AM PACK OPERATOR Office Visit [address] [place] [phone] Inez New PA Annual physical exam (Primary [...] on file Legal Sex Female 4:54 AM PACK OPERATOR Gender Identity Not on file Sexual Orientation Not on file Occupation Industry Job Start Date Job End Date Disabled Not on file Not on file Not on file Obstetrics History Last Filed Vital Signs Vital Sign Reading Time Taken Comments Blood Pressure 110/70 11/01/2024 9:58 AM CDT Pulse 65 11/01/2024 9:58 AM CDT Temperature 36.3 C (97.4 F) 08/15/2024 10:04 AM PACK OPERATOR Respiratory Rate 16 11/01/2024 9:58 AM CDT Oxygen Saturation 98% 11/01/2024 9:58 AM CDT Inhaled Oxygen Concentration - - Weight 101.2 kg (223 lb) 11/01/2024 9:58 AM CDT Height 154.9 cm (5' 1 ) 11/01/2024 9:58 AM CDT Body Mass Index 42.14 11/01/2024 9:58 AM CDT Plan of Treatment Health Maintenance Due [...] Date/Time Associated Diagnosis Comments ELECTROCARDIOGRAM REPORT Routine 11/01/2024 10:27 AM CDT Abnormal ECG SCAN - RADIOLOGY/IMAGING 10/03/2024 SCAN - RADIOLOGY/IMAGING 09/27/2024 HARRIETT TITER & PATTERN Routine 08/28/2024 1:17 PM PACK OPERATOR HARRIETT QUALITATIVE WITH REFLEX TO HARRIETT QUANTITATIVE Routine 08/28/2024 1:17 PM PACK OPERATOR Facial rash SCAN - PATHOLOGY 08/24/2024 GI - RESULT 08/24/2024 PSG (COMPLEX) Routine 08/23/2024 7:47 PM PACK OPERATOR SHERRY (obstructive sleep apnea) ECG 12-LEAD Routine 08/15/2024 10:46 AM PACK OPERATOR Elevated blood pressure reading SCREENING MAMMOGRAM BILATERAL W ALBERTO Schedule Routine, Read Routine (OP Routine) 08/08/2024 2:15 PM PACK OPERATOR Breast cancer screening by mammogram ALBUMIN CREATININE RATIO, URINE Routine 06/01/2024 7:12 AM PACK OPERATOR Type 2 diabetes mellitus with hyperlipidemia (HCC) COMPREHENSIVE METABOLIC PANEL Routine 06/01/2024 7:11 AM PACK OPERATOR Type 2 diabetes mellitus with hyperlipidemia (HCC) HEMOGLOBIN A1C Routine 06/01/2024 7:11 AM PACK OPERATOR Type 2 diabetes mellitus with hyperlipidemia (HCC) LIPID PANEL Routine 06/01/2024 7:11 AM PACK OPERATOR Hyperlipidemia, unspecified hyperlipidemia type HM COLONOSCOPY Routine 05/26/2021 THINPREP APPLICATIONS SYSTEMS ANALYST PAP (IMAGE GUIDED) LIQUID-BASED PREP Routine 08/03/2017 12:16 PM PACK OPERATOR from Last 3 Months or Most Recently Relevant to Health Maintenance Results * Electrocardiogram Report (11/01/2024 10:27 AM CDT) us Abdullahi Vogel MD ECG ORDERABLES Final Result * SCAN - RADIOLOGY/IMAGING (10/03/2024) Anatomical Region Laterality Modality Other us Provider Scanning Final Result * SCAN - RADIOLOGY/IMAGING (09/27/2024) Anatomical Region Laterality Modality Other us Inez VELASCO Final Resu lt * (ABNORMAL) HARRIETT ab ql w/rflx to HARRIETT qn (08/28/2024 1:17 PM PACK OPERATOR) HARRIETT, qual POSITIVE( A) NEGATIVE [facility] [place] Comment: HARRIETT IFA is a first line screen for detecting the presence of up to approximately 150 autoantibodies in various autoimmune diseases. A positive HARRIETT IFA result is suggestive of autoimmune disease and reflexes to titer and pattern. Further laboratory testing may be considered if clinically indicated. For additional information, please refer to http://Sand Sign.Friendsee/faq/SYB454 (This link is being provided for informational/ educational purposes only.) Blood 08/28/2024 1:17 PM PACK OPERATOR 08/28/2024 1:18 PM PACK OPERATOR Narrative [facility] - 08/30/2024 1:13 PM PACK OPERATOR FASTING:YES FASTING: YES Result [facility] Inez VELASCO LAB BLOOD ORDERABLES Final Result Performing Organization Address [facility] de Phone Number [employer] [facility] [address] [place] [address] * (ABNORMAL) Antinuclear Antibodies Titer and Pattern (08/28/2024 1:17 PM PACK OPERATOR) HARRIETT, quant 1:80(H) titer [facility] [...] AC-1: Homogeneous International Consensus on HARRIETT Patterns (https://doi.org/10.1515/fjxs-9985-7428) 08/28/2024 1:17 PM PACK OPERATOR 08/28/2024 1:18 PM PACK OPERATOR Narrative [facility] - 08/30/2024 1:13 PM PACK OPERATOR FASTING:YES FASTING: YES Inez VELASCO LAB BLOOD ORDERABLES Final Result Performing Organization Address [facility] Co de Phone Number [employer] [address] [facility] [place] [address] * GI - RESULT (08/24/2024) Anatomical Region Laterality Modality Other us Inez VELASCO Final Resu lt * SCAN - PATHOLOGY (08/24/2024) Provider Scanning Final Result * PSG-Sleep Provider Use Only (08/23/2024 7:47 PM PACK OPERATOR) Jeffy Manuel MD [facility] ORDERABLES F inal Result [facility] [address] [place] [address] * ECG 12 lead (08/15/2024 10:46 AM PACK OPERATOR) us Inez VELASCO ECG ORDERABLES Final Resu lt * Screening Mammogram Bilateral W Alberto (08/08/2024 2:15 PM PACK OPERATOR) Anatomical Region Laterality Modality Breast Bilateral Mammography Impressions 08/08/2024 2:15 PM PACK OPERATOR 1.No mammographic evidence of malignancy 2.Routine screening recommended for 1 year BI-RADS Category 1 Negative Inez VELASCO IMG MAMMO PROCEDURES Final Result * Albumin Creatinine Ratio, Urine (06/01/2024 7:12 AM PACK OPERATOR) Creatinine, ur 42 20 - 275 [...] a diagnostic category. Urine 06/01/2024 7:12 AM PACK OPERATOR 06/01/2024 7:13 AM PACK OPERATOR Inez VELASCO LAB URINE ORDERABLES Final Result Performing Organization Address City/[facility]/ZIP Co de Phone Number [facility] [address] [facility] [place] [address] * (ABNORMAL) Hemoglobin A1c (06/01/2024 7:11 AM PACK OPERATOR) Hgb A1C 5.9(H) <5.7 % of total Hgb [facility] shukri Jackson Comment: For someone without known [...] diabetes for children. Blood 06/01/2024 7:11 AM PACK OPERATOR 06/01/2024 7:11 AM PACK OPERATOR Narrative [facility] - 06/01/2024 9:56 PM PACK OPERATOR FASTING:YES FASTING: YES Inez VELASCO LAB BLOOD ORDERABLES Final Result [facility] [place] [address] [place] [address] * (ABNORMAL) Lipid panel (06/01/2024 7:11 AM PACK OPERATOR) Cholesterol 142 <200 mg/dL [facility] Manuel HDL 47(L) > OR = 50 mg/dL [facility] shukri Manuel Triglycerides 124 <150 mg/dL [facility] LDL 74 mg/dL (calc) Estella Jackson Comment: [...] LDL-C. Arley SS et al. FRANKY. 2013;310(19): 7850-0383 (http://education.Friendsee/faq/ECY396) Chol/HDL ratio 3.0 <5.0 (calc) Estella Jackson Non-HDL, (LDL+VLDL) 95 <130 mg/dL (calc) Estella Jackson Comment: For patients with diabetes plus 1 major ASCVD risk factor, treating to a non-HDL-C goal of <100 mg/dL (LDL-C of <70 mg/dL) is considered a therapeutic option. Blood 06/01/2024 7:11 AM PACK OPERATOR 06/01/2024 7:11 AM PACK OPERATOR Narrative [facility] - 06/01/2024 9:56 PM PACK OPERATOR FASTING:YES FASTING: YES Inez VELASCO LAB BLOOD ORDERABLES Final Result ESTELLA MirandaMelissa [address] [place] [address] * Comprehensive metabolic panel (06/01/2024 7:11 AM PACK OPERATOR) [facility] Glucose 98 65 - 99 mg/dL Estella Jackson Comment: Fasting reference interval BUN 11 7 - 25 mg/dL Estella Jackson Creatinine 0.75 0.50 - 1.03 mg/dL Estella Jackson eGFR 95 > OR = 60 mL/min/1.7 3m2 Estella Jackson BUN/creat ratio SEE NOTE: (calc) Estella Jackson Comment: Not Reported: BUN and Creatinine are within reference range. Sodium 136 135 - 146 mmol/L Estella Jackson Potassium, pl 4.3 3.5 - 5.3 mmol/L Estella Jackson Chloride 102 98 - 110 mmol/L Estella [employer] CO2 26 20 - 32 mmol/L Estella [employer] Calcium 9.5 8.6 - 10.4 mg/dL Estella [facility] Protein, sr 6.8 6.1 - 8.1 g/dL Estella [employer] Jackson Albumin 4.6 3.6 - 5.1 g/dL Estella [facility] GLOBULIN 2.2 1.9 - 3.7 g/dL (calc) Estella [employer] Alb/glob ratio 2.1 1.0 - 2.5 (calc) Estella [employer] Bilirubin, total 0.6 0.2 - 1.2 mg/dL Estella [employer] Alk phos 69 37 - 153 U/L [employer] AST 24 10 - 35 U/L Estella [facility] Jackson ALT (SGPT) 21 6 - 29 U/L [employer]Emerson Jackson Blood 06/01/2024 7:11 AM PACK OPERATOR 06/01/2024 7:11 AM PACK OPERATOR Narrative [facility] - 06/01/2024 9:56 PM PACK OPERATOR FASTING:YES FASTING: YES Inez VELASCO LAB BLOOD ORDERABLES Final Result [facility] [address] [place] [address] * (ABNORMAL) COLONOSCOPY (05/26/2021) Historical Provider HEALTH MAINTENANCE Edited Result - Final * ThinPrep Gynecologic Pap Test (Image-guided), Liquid-based Preparation (08/03/2017 12:16 PM PACK OPERATOR) CLINICAL INFORMATION [facility] HISTORICAL RESULTS Comment:Information not prov ided LMP: 07/19 [facility] HISTORICAL RESULTS PREV. PAP: [facility] HISTORICAL RESULTS Comment:MANY YEARS AGO PREV. BX: [facility] HISTORICAL RESULTS Comment:INFORMATION NOT PROV IDED SOURCE: [facility] HISTORICAL RESULTS Comment:Cervix, Endocervix STATEMENT OF ADEQUACY: [facility] HISTORICAL RESULTS Comment: Satisfactory for evaluation. Endocervical/transformation zone component present. INTERPRETATION/RESU LT: [facility] Comment:Negative for intraep ithelial lesion or malignancy. COMMENT: [facility]ISTOR[facility] RESULTS Comment: This Pap test has been evaluated with computer assisted technology. VICE PRESIDENT OF SOFTWARE DEVELOPMENT: [facility] HISTORICAL RESULTS Comment: YQ, CT(ASCP) CT screening location: [place] [address] [address] [place] [address] 08/03/2017 12:1 6 PM PACK OPERATOR 08/09/2017 8:55 PM PACK OPERATOR Narrative [facility] - 08/09/2017 8:41 PM PACK OPERATOR 0 PERFORMING LAB: , [facility] [place] [address] [facility] [address] Mahi Mcmahon MD Historical Provider LAB PATHOLOGY ORDERABLES Final Result [facility] HISTORICAL RESULTS from Last 3 Months or Most Recently Relevant to Health Maintenance [place] [address] [address] [place] [address] [facility] MED[facility] Address: [address] [address] [place] [address] IDPA [facility] MEDICARE [facility] Address: [address] [address] [place] [address] [facility] Address: [address] [address] [place] [address] Advance Directives For more information, please contact: [phone] * Full Code (Latest Code Status on File) Date Activated Date Inactivated Comments 05/29/2022 12:59 PM 05/30/2022 2:26 PM * Full Code Date Activated Date Inactivated Comments 05/28/2022 7:20 PM 05/29/2022 12:59 PM Care Teams Equipment Man Relationship Specialty Start Date End Date Inez New PA [address] [place] [address] PCP - General 09/14/17 Candido Guerin MD [address] [place] [address] Consulting Physician Gastroenterology 05/04/23 Anthony Diez MD [address] [place] [address] Consulting Physician Rheumatology 09/18/24
--- OUTSIDE RECORDS SUMMARY | 2024-11-03 14:42 | XMS_ITS | Encounter Summary ---
Author Organization [facility] Facility Care Team Providers Care Bread Room Hand Name Role Phone Inez New Primary Care Provider [phone] Candido Guerin MD Unavailable [phone] Anthony Diez MD Unavailable [phone] Encounter Details Date Type Department Care Team (Latest Contact Info) Description 09/26/2015 Orders Only [facility] CLINCONV ProviderVishal MD [address] [place] [id number] Social History Tobacco Use Types Packs/Day Years Used Date Smoking Tobacco: Never Assessed Comments Unknown Sex and Gender Information Value Date Recorded Sex Assigned at Not on file Legal Sex Female 4:54 AM INSTALLATION SUPERVISOR Gender Identity Not on file Sexual [...] documented as of this encounter Care Teams Bread Room Hand Relationship Specialty Start Date End Date Inez New PA [address] [place] [address] PCP - General 09/14/17 Candido Guerin MD [address] [place] [address] Consulting Physician Gastroenterology 05/04/23 Anthony Diez MD [address] [place] [address] Consulting Physician Rheumatology 09/18/24 documented as of this encounter
--- OUTSIDE RECORDS SUMMARY | 2024-11-03 14:42 | XMS_ITS | Clinical Summary ---
Author Organization [facility] Address [address] [place] [address] Care Team Providers Care Forming Machine Operator Name Role Phone Inez New Primary Care Provider [phone] Allergies No known active allergies Medications rosuvastatin [...] CDT - 09/28/2024 10:32 AM CDT Emergency [facility] [place] [address] Nyla Greer MD Gelbaltazar, Vandana Cortes MD [...] PM CDT COLONOSCOPY Routine 05/26/2021 5:23 AM LAY OUT INSPECTOR from Last 3 Months or Most Recently Relevant to Health Maintenance Results * MRI BRAIN WO CON (09/28/2024 9:38 AM CDT) Anatomical Region Laterality Modality Head Magnetic Resonan ce 09/28/2024 9:47 AM CDT Impressions 09/28/2024 9:58 AM CDT IMPRESSION: Normal appearance of the brain. Ordered By: NYLA GREER Interpreted By: Cooper Kraft MD, 09/28/2024 9:47 AM Narrative 09/28/2024 9:58 AM CDT [place] [id number] EXAMINATION: MRI brain without contrast. EXAM DATE/TIME: [...] Procedure Note Cooper Kraft MD - 09/28/[address] [address] EXAMINATION: MRI brain without contrast. EXAM DATE/TIME: [...] 1:37 AM Narrative 09/28/2024 1:42 AM CDT [address] [address] EXAMINATION: CT HEAD WO CON CLINICAL HISTORY: [...] Procedure Note Kurtis Edwards MD - 09/28/[address] [address] EXAMINATION: CT HEAD WO CON CLINICAL HISTORY: [...] AMPHETAMINE (U) NEGATIVE NEGATIVE 12:17 AM CDT [facility] BARBITURATES SCREEN (U) NEGATIVE NEGATIVE 09/28/2024 12:17 AM CDT [facility] BENZODIAZEPINES SCREEN (U) NEGATIVE NEGATIVE 09/28/2024 12:17 AM CDT [facility] CANNABINOIDS SCREEN (U) NEGATIVE NEGATIVE 09/28/2024 12:17 AM CDT [facility] COCAINE METABOLITES (U) NEGATIVE NEGATIVE 09/28/2024 12:17 AM CDT [facility] METHADONE (U) NEGATIVE NEGATIVE 09/28/2024 12:17 AM CDT [facility] OPIATE SCREEN (U) NEGATIVE NEGATIVE 025 12:17 AM CDT [facility] PHENCYCLIDINE PCP (U) NEGATIVE NEGATIVE 09/28/2024 12:17 AM CDT [facility] Comment: NOTE: RESULTS OF THIS DRUG SCREEN SHOULD BE USED FOR MEDICAL PURPOSES ONLY AND NOT FOR LEGAL OR EMPLOYMENT PURPOSES. POSITIVE RESULTS ARE NOT CONFIRMED. MEDICATIONS CONTAINING EPHEDRINE MAY CAUSE FALSE POSITIVE AMPHETAMINE CALL [phone], LAB, TO REQUEST CONFIRMATION TESTING. IF CREATININE IS <40 mg/dL. RECOLLECTION IS SUGGESTED. AMPHETAMINE- 500 NG/ML BARBITURATE- 200 NG/ML BENZODIAZEPINES- 200 NG/ML THC- 50 NG/ML COCAINE- 150 NG/ML METHADONE- 300 NG/ML OPIATE- 300 MG/ML PCP- 25 NG/ML CREATININE (U) 25.6(L) 28 - 217 MG/DL 09/28/2024 12:17 AM CDT [facility] URINE SPECIMEN / Unknown 09/27/2024 11:55 PM CDT us Nyla Greer MD URINE ORDERABLES Lisa hernandez Result [facility] [address] [place] [address], * XR CHEST PORTABLE (09/27/2024 10:40 PM CDT) Anatomical Region Laterality Modality Chest Radiographic Jeanine ging 09/27/2024 10:5 7 PM CDT Impressions 09/27/2024 11:01 PM CDT IMPRESSION: 1. Moderate to large size retrocardiac hiatal hernia. 2. Mild atelectasis in bilateral lower lobes with no other acute pulmonary disease. Referred By: Interpreted By: Ladonna Bang MD, 09/27/2024 10:57 PM Narrative 09/27/2024 11:01 PM CDT [address] [address] EXAMINATION: XR Portable CXR, 1 View INDICATION: Trauma, fell down steps COMPARISON: CT chest, abdomen and pelvis with contrast 09/27/2024. FINDINGS: There is a moderate to large size retrocardiac hiatal hernia that is better seen on the comparison CT chest exam. teletypesetter monitor leads overlie the chest and included upper abdomen. The cardiomediastinal silhouette is within normal limits. teletypesetter monitor leads overlie the upper abdomen. Pulmonary vascularity is normal. There is mild atelectasis in bilateral lower lobes. Remaining lungs are clear with no acute infiltrate, consolidation, pneumothorax, or pleural effusion. No acute osseous abnormality. Procedure Note Ladonna Bang MD - 09/27/[address] [address] EXAMINATION: XR Portable CXR, 1 View INDICATION: Trauma, fell down steps COMPARISON: CT chest, abdomen and pelvis with contrast 09/27/2024. FINDINGS: There is a moderate to large size retrocardiac hiatal hernia that isbetter seen on the comparison CT chest exam. teletypesetter monitor leadsoverlie the chest and included upper abdomen. The cardiomediastinalsilhouette is within normal limits. teletypesetter monitor leads overlie theupper abdomen. Pulmonary vascularity [...] 10:2 2 PM CDT Narrative [facility] - 09/28/2024 5:52 AM CDT [facility] [address] Test Date: 2024-09-27 Pat Name: JEREMIAH GORDON Department: 41 Room: [place] [address] Gender: Female Management Nurse Rn: [id number] : 1970 Requested By: NYLA GREER Order Number: [id number] Reading : Jaz Hinton Measurements Intervals [place] Rate: 77 P: 53 WA: 171 QRS: -20 QRSD: 110 T: 22 QT: 418 QTc: 475 Interpretive Statements SINUS RHYTHM POSSIBLE LEFT ATRIAL ENLARGEMENT [-0.1mV P WAVE IN V1/V2] Compared to ECG 09/01/2018 20:34:51 Intraventricular conduction delay no longer present Procedure Note Jaz Hinton MD - 09/28/2024 [facility] [address] Test Date: 2024-09-27 Pat Name: JEREMIAH GORDON Department: 41 Room: [place] [address] Gender: Female Management Nurse Rn: [id number] : 1970 Requested By: NYLA GREER Order Number: [id number] Reading DMITRI Hinton Measurements Intervals [place] Rate: 77 P: 53 [place]: 171 QRS: -20 QRSD: 110 T: 22 QT: 418 QTc: 475 Interpretive Statements SINUS RHYTHM POSSIBLE LEFT ATRIAL ENLARGEMENT [-0.1mV P WAVE IN V1/V2] Compared to ECG 09/01/2018 20:34:51 Intraventricular conduction delay no longer present us Nyla Greer MD ECG ORDERABLES Final Result [facility] ([facility]) RAD * CT CHEST+ABD+PEL W [...] 10:20 PM Narrative 09/27/2024 10:[address] PM [address]T [address] [address] INDICATION: Trauma, pain, altered mental status COMPARISON: [...] Procedure Note Trey Montero MD - 09/27/[address] [address] INDICATION: Trauma, pain, altered mental status COMPARISON: [...] 10:37 PM Narrative 09/27/2024 10:40 PM CDT [place] [address] INDICATION: Trauma COMPARISON: None TECHNIQUE: Nonenhanced CT [...] Procedure Note Trey Montero MD - 09/27/2024 [place] [address] INDICATION: Trauma COMPARISON: None TECHNIQUE: Nonenhanced CT [...] METABOLIC PANEL (09/27/2024 9:48 PM CDT) Pathologist [facility] GLUCOSE 97 70 - 99 MG/DL 09/27/2024 10:59 PM CDT [facility] BUN 7 7 - 18 MG/DL 09/27/2024 10:59 PM CDT [facility] CREATININE S/P/B 0.58 0.55 - 1.02 MG/DL 09/27/2024 10:59 PM CDT [facility] SODIUM S/P/B 136 136 - 145 MMOL/L 09/27/2024 10:59 PM CDT [facility] POTASSIUM S/P/B 3.7 3.5 - 5.1 MMOL/L 09/27/2024 10:59 PM CDT [facility] CHLORIDE S/P/B 107 97 - 115 MMOL/L 09/27/2024 10:59 PM CDT [facility] CO2 22.5 21 - 32 MMOL/L 09/27/2024 10:59 PM CDT [facility] CALCIUM S/P/B 8.6 8.5 - 10.1 MG/DL 09/27/2024 10:59 PM CDT [facility] BILIRUBIN TOTAL S/P/B 0.4 0.2 - 1.2 MG/DL 09/27/2024 10:59 PM CDT [facility] Comment: THIS ASSAY IS NOT RECOMMENDED FOR PATIENTS UNDERGOING TREATMENT WITH ELTROMBOPAG DUE TO THE POTENTIAL FOR FALSELY ELEVATED RESULTS. TOTAL PROTEIN S/P/B 6.5 6.4 - 8.2 G/DL 09/27/2024 10:59 PM CDT [facility] ALBUMIN S/P/B 3.4 3.4 - 5.0 G/DL 09/27/2024 10:59 PM CDT [facility] AST 22 15 - 37 U/L 09/27/2024 10:59 PM CDT [facility] ALT 22 14 - 55 U/L 09/27/2024 10:59 PM CDT [facility] ALKALINE PHOSPHATASE S/P/B 70 50 - 136 U/L 09/27/2024 10:59 PM CDT [facility] ANION GAP 6.5 2 - 10 MMOL/L 09/27/2024 10:59 PM CDT [facility] BUN CREATININE RATIO 12.0 6 - 26 09/27/2024 10:59 PM CDT [facility] A/G RATIO 1.1 1.0 - 2.0 RATIO 09/27/2024 10:59 PM CDT [facility] GFR ESTIMATE >90 >90 ML/MIN/1.7 3 M2 09/27/2024 10:59 PM CDT [facility] Comment: NOTE: eGFR is not calculated for patients <18 years of age or gender unknown. This is an estimated GFR calculation using the new CKD EPI creatinine equation without race and so does not require a correction factor for race. This estimated GFR should not be used for calculating drug doses. 09/27/2024 9:48 PM CDT us Nyla Greer MD LABORATORY Final Result [facility] [address] [place] [address], * (ABNORMAL) CBC W/DIFF AUTOMATED (09/27/2024 9:48 PM CDT) [facility] WBC 9.28 4.5 - 11.0 x10'3/uL 09/27/2024 10:04 PM CDT [facility] RBC 4.32 4.20 - 5.40 x10'6/uL 09/27/2024 10:04 PM CDT [facility] HGB 13.9 12.0 - 16.0 G/DL 09/27/2024 10:04 PM CDT [facility] HCT 42.0 38.0 - 48.0 % 09/27/2024 10:04 PM CDT [facility] MCV 97.2 81.0 - 99.0 FL 09/27/2024 10:04 PM CDT [facility] MCH 32.2(H) 27.0 - 31.0 PG 09/27/2024 10:04 PM CDT [facility] MCHC 33.1 32.0 - 36.0 G/DL 09/27/2024 10:04 PM CDT [facility] RDW 14.4 11.5 - 14.5 % 09/27/2024 10:04 PM CDT [facility] PLT 269 130 - 400 x10'3/uL 09/27/2024 10:04 PM CDT [facility] MPV 9.1(L) 9.3 - 12.2 FL 09/27/2024 10:04 PM CDT [facility] DIFFERENTIAL TYPE AUTOMATED DIFFERENTIAL 09/27/2024 10:04 PM CDT [facility] NEUTROPHILS % 61.9 % 09/27/2024 10:04 PM CDT [facility] LYMPHOCYTES % 28.6 % 09/27/2024 10:04 PM CDT [facility] MONOCYTES % 6.7 % 09/27/2024 10:04 PM CDT [facility] EOSINOPHILS 2.0 % 09/27/2024 10:04 PM CDT [facility] BASOPHILS 0.3 % 09/27/2024 10:04 PM CDT [facility] IMMATURE GRANS % 0.5 % 09/28/19 10:04 PM CDT [facility] ABS. NEUTROPHILS 5.74 1.80 - 7.70 x10'3/uL 09/27/2024 10:04 PM CDT [facility] ABS. LYMPHOCYTES 2.65 1.00 - 4.80 x10'3/uL 09/27/2024 10:04 PM CDT [facility] ABS. MONOCYTES 0.62 0.24 - 0.86 x10'3/uL 09/27/2024 10:04 PM CDT [facility] ABS. EOSINOPHILS 0.19 0.04 - 0.36 x10'3/uL 09/27/2024 10:04 PM CDT [facility] ABS. BASOPHILS 0.03 0.01 - 0.08 x10'3/uL 09/27/2024 10:04 PM CDT [facility] ABS. IMMATURE GRANULOCYTES 0.05 0.00 - 0.49 x10'3/uL 09/27/2024 10:04 PM CDT [facility] 09/27/2024 9:48 PM CDT us Nyla Greer MD LABORATORY Final Result [facility] [address] [place] [address], * (ABNORMAL) ETHANOL (09/27/2024 9:48 PM CDT) ALCOHOL S/P/B 0.305(HH) <0.003 G/DL 09/27/2024 10:59 PM CDT [facility] Comment: Critical Result(s) Called at: 22:58:01 on 09/27/2024 by: MARQUIS ROSENBERG to and read back by:DENEA HARRIS 09/27/2024 9:48 PM CDT us Nyla Greer MD LABORATORY Final Result [facility] [address] [place] [address], from Last 3 Months Insurance MEDICAID U[employer] Care Teams Forming Machine Operator Relationship Specialty Start Date End Date Inez New PA [address] [place] [address] PCP - General PHYSICIAN YARD COORDINATOR 05/26/21
--- OUTSIDE RECORDS SUMMARY | 2024-11-03 14:42 | XMS_ITS | Referral Summary ---
Author Organization [facility] [address] [place] [address] Care Team Providers Care Build Manager Name Role Phone Inez New Primary Care Provider + [phone] Candido Guerin MD Unavailable [phone] Anthony Diez MD Unavailable [phone] Encounters Date Type Department Care Team Description 11/01/2024 10:00 AM CDT Office Visit [facility] Cardiology [address] [place] [phone] Abdullahi Vogel MD Abnormal ECG (Primary Dx) 10/30/2024 Telephone [facility] Family Medicine [address] [place] [phone] Inez New PA 10/15/2024 Telephone [facility] Medicine [address] [place] [address] Road [address] [place] [phone] Sandy Ramirez MA Successful Phone Call (MED ADHERENCE) 10/03/2024 Orders Only [facility] Health Information Management [address] [place] [id number] Scanning, Provider 10/02/2024 Orders Only [facility] Family Medicine [address] [place] [address] Inez New PA Enlarged liver (Primary Dx); Bile duct abnormality 09/28/2024 Telephone [facility] Family Medicine [address] [place] [address] Inez New PA 09/27/2024 Orders Only [facility] Health Information Management [address] [place] [address] Inez New PA 09/24/2024 Documentation [facility] Cardiology [address] [place] [address] Tessie Rice MA 09/21/2024 Telephone [facility] Accountable Care Organization [address] [place] [address] Antonella Costa Chart Review ([facility] Med Adherence ) 09/11/2024 Orders Only [facility] Medicine at [place] [address] [place] [address] Inez New PA Need for RSV vaccination (Primary Dx) 09/05/2024 Orders Only [facility] Medicine [address] [place] [address] Inez New PA Positive HARRIETT (antinuclear antibody) (Primary Dx) 09/05/2024 Orders Only [facility] Medicine [address] [place] [address] Inez New PA Positive HARRIETT (antinuclear antibody) (Primary Dx) 09/04/2024 Results Follow-Up [facility] Medicine [address] [place] [address] Inez New PA 08/28/2024 Orders Only [facility] Family Medicine [address] [place] [address] Inez New PA Dizziness (Primary Dx); Persistent headaches 08/28/2024 Orders Only [facility] Medicine [address] [place] [address] Road [address] [place] [phone] Inez New PA Facial rash (Primary Dx) 08/24/2024 Orders Only [facility] Health Information Management [address] [place] [address] Inez New PA 08/24/2024 Telephone [facility] [address] [place] [address] Jeffy Manuel MD Cpap titration results / cpap order 08/23/[address] [place] [phone] Inez New PA 08/23/[address] [place] [phone] Inez New PA Medication Request 08/23/[address] [place] [phone] Inez New PA 08/23/2024 7:47 PM TOY PACKER - 08/23/2024 11:59 PM TOY PACKER Hospital Encounter [facility] [address] [place] [address] SHERRY (obstructive sleep apnea) Discharge Disposition: Discharge to home or self care 08/20/[address] [place] [phone] Inez New PA 08/15/2024 10:00 AM TOY PACKER Office Visit [address] [place] [phone] Inez New PA Annual physical exam (Primary Dx); Dizziness; Elevated blood pressure reading; Hypertension associated with diabetes (HCC); Type 2 diabetes mellitus without complication, without long-term current use of insulin ([facility]); Chronic obstructive pulmonary disease, unspecified COPD type ([facility]); Type 2 diabetes mellitus with hyperlipidemia ([facility]); SHERRY (obstructive sleep apnea); Morbid obesity ([facility]); BMI 40.0-44.9, adult ([facility]); Essential (primary) hypertension from Last 3 Months [...] complication, without long-term current use of insulin ([facility]) Use daily for monitoring of diabetes. 1 each 03/20/20 24 Active blood glucose diagnostic (glucose blood) stripIndications: Type 2 diabetes mellitus with hyperlipidemia ([facility]) Use test strip to check blood glucose level once daily. Patient has an One Touch Verio Reflex Glucose Meter so will need test strips to be used with it. 100 each 03/27/20 24 2024 Active lancets (onetouch ultrasoft) miscIndications:T ype 2 diabetes mellitus with hyperlipidemia ([facility]) Check blood sugar one time a day. [...] 08/26/2024 Assessment & Plan (08/26/2024 4:47 PM TOY PACKER): This is a significant, separately identifiable problem [...] 08/26/2024 Assessment & Plan (08/26/2024 4:46 PM TOY PACKER): Encouraged healthy lifestyle, good nutrition and exercise. Encouraged Calcium and Vitamin D and weight bearing exercise for bone health. Reviewed immunizations Reviewed age appropirate screenings. Hypertension associated with diabetes 08/15/2024 Assessment & Plan (08/26/2024 4:38 PM TOY PACKER): Blood pressure still isn't perfectly controlled. Continue with the lisinopril 20. She has not been taking the propranolol so will switch to Bystolic 5 for a q.d. dosing and see how she does. Call in a week with readings. BMI 40.0-44.9, adult 06/11/2024 Assessment & Plan (08/15/2024 10:04 AM TOY PACKER): Discussed the patient's BMI. The BMI is above average. BMI management plan is completed. BMI Follow-up includes: nutrition counseling, exercise counseling and education provided. Assessment & Plan (08/01/2024 11:21 AM TOY PACKER): Discussed the patient's BMI. The BMI is above average. BMI management plan is completed. BMI Follow-up includes: nutrition counseling, exercise counseling and education provided. Assessment & Plan (06/11/2024 12:16 PM TOY PACKER): Discussed the patient's BMI. The BMI is above average. BMI management plan is completed. BMI Follow-up includes: nutrition counseling, exercise counseling and education provided. Elevated TSH 03/17/2024 Assessment & Plan (03/18/2024 8:08 PM CDT): Check labs Abnormal thyroid screen (blood) 03/17/2024 Type 2 diabetes mellitus wit hout complication, without long-term current use of insulin 03/17/2024 Assessment & Plan (08/26/2024 4:37 PM TOY PACKER): Stressed importance of continued A1c control to minimize the intermediate designer effects of diabetes. Bring accuchecks to office when instructed to do so. Check A1c about every 3-6 months. Take medication as prescribed. Get annual eye exam. Encouraged GLENDY/Statin if able to tolerate. Encouraged weight control and encouraged diabetic diet and exercise. Continue with metformin 500 el A1c is tightly controlled at 5.8 Assessment & Plan (08/13/2024 1:18 PM TOY PACKER): Stressed importance of continued A1c control to minimize the mcfp effects of diabetes. Bring accuchecks to office when instructed to do so. Check A1c about every 3-6 months. Take medication as prescribed. Get annual eye exam. Encouraged GLENDY/Statin if able to tolerate. Encouraged weight control and encouraged diabetic diet and exercise. A1c is nicely controlled at 5.9. Continue metformin 500 mg Assessment & Plan (06/11/2024 12:15 PM TOY PACKER): Stressed importance of continued A1c control to minimize the mcfp effects of diabetes. Bring accuchecks to office [...] Discussed with patient at length diabetes, pathogenesis, mcfp sequela, end organ damage, diet/exercise/weight loss, and [...] feet on a regular basis to avoid intermediate designer problems. Offered referral to cane packer. Start metformin 500 mg 1 tablet daily [...] referral Assessment & Plan (09/07/2023 10:34 PM TOY PACKER): Ears are clear. Suspect eustachian tube dysfunction. Recommend Flonase, mucinex and antihistamine. If symptoms persist, may need ENT referral. Morbid obesity 07/22/2022 Assessment & Plan (08/26/2024 4:37 PM TOY PACKER): Discussed the patient's BMI. The BMI is above average. BMI management plan is completed. BMI Follow-up includes: nutrition counseling, exercise counseling and education provided. Assessment & Plan (08/01/2024 11:22 AM TOY PACKER): Discussed the patient's BMI. The BMI is above average. BMI management plan is completed. BMI Follow-up includes: nutrition counseling, exercise counseling and education provided. Assessment & Plan (06/11/2024 12:15 PM TOY PACKER): Discussed the patient's BMI. The BMI is above average. BMI management plan is completed. BMI Follow-up includes: nutrition counseling, exercise counseling and education provided. Assessment & Plan (03/18/2024 8:06 PM CDT): Discussed the patient's BMI. The BMI is above average. BMI management plan is completed. BMI Follow-up includes: nutrition counseling, exercise counseling and education provided. Assessment & Plan (09/07/2023 10:31 PM TOY PACKER): Discussed the patient's BMI. The BMI is above average. BMI management plan is completed. BMI Follow-up includes: nutrition counseling, exercise counseling and education provided. Patient has an obesity-related condition (not limited to: hypertension, obstructive sleep apnea, osteoarthritis, hyperlipidemia, diabetes, etc.). Therefore, morbid obesity may be documented for patients with a BMI between 35.00-39.99. Assessment & Plan (05/21/2023 3:46 PM TOY PACKER): Discussed the patient's BMI. The BMI is above average. BMI management plan is completed. BMI Follow-up includes: nutrition counseling, exercise counseling and education provided. Patient has an obesity-related condition (not limited to: hypertension, obstructive sleep apnea, osteoarthritis, hyperlipidemia, diabetes, etc.). Therefore, morbid obesity may be documented for patients with a BMI between 35.00-39.99. Assessment & Plan (07/22/2022 2:01 PM TOY PACKER): Discussed the patient's BMI. The BMI is above average. BMI management plan is completed. BMI Follow-up includes: nutrition counseling, exercise counseling and education provided. Patient has an obesity-related condition (not limited to: hypertension, obstructive sleep apnea, osteoarthritis, hyperlipidemia, diabetes, etc.). Therefore, morbid obesity may be documented for patients with a BMI between 35.00-39.99. Symptomatic anemia 05/28/2022 Assessment & Plan (09/07/2023 10:29 PM TOY PACKER): Known anemia. Has had transfusion. Continue to [...] Guajardo Assessment & Plan (06/14/2020 5:55 PM TOY PACKER): Refer back to Ortho. Offered PT. She [...] 09/11/2019 Assessment & Plan (06/11/2024 12:15 PM TOY PACKER): Mammogram order provided Assessment & Plan (08/23/2021 9:43 PM TOY PACKER): Mammogram order provided Assessment & Plan (09/26/2020 8:30 PM CDT): Mammogram order provided Assessment & Plan (09/11/2019 9:21 AM CDT): Mammogram order provided Sciatica of right side 06/17/2019 Assessment & Plan (06/17/2019 6:14 PM TOY PACKER): Voltaren gel Exercise/Start PT Followup if sxs worsen or don't improved. Vertigo 02/28/2019 Assessment & Plan (03/18/2024 8:06 PM CDT): Uses meclizine p.r.n. with good results Assessment & Plan (09/26/2020 8:29 PM CDT): antivert prn Assessment & Plan (03/15/2020 11:09 AM CDT): Persitent vertigo. 02/2020 CT head was essentially negative. She has finally agreed to vestibular therapy. Will still change neurology referral from [place] to [place] as patient able to arranage transportation easier. [...] 09/2018 Assessment & Plan (08/26/2024 4:36 PM TOY PACKER): Encouraged patient to follow low fat/low chol diet like the Mediterranean diet. Increase good fats in the diet. Increase exercise. Monitor labs as needed. Continue Crestor Assessment & Plan (08/13/2024 1:17 PM TOY PACKER): Encouraged patient to follow low fat/low chol diet like the Mediterranean diet. Increase good fats in the diet. Increase exercise. Monitor labs as needed. Continue Crestor Assessment & Plan (06/11/2024 11:51 AM TOY PACKER): Stressed importance of continued A1c control to minimize the intermediate designer effects of diabetes. Bring accuchecks to office [...] 5.9. Tolerating the metformin without difficulty Continue [facility] 20 Assessment & Plan (03/18/2024 8:04 PM CDT): Stressed importance of continued A1c control to minimize the intermediate designer effects of diabetes. Bring accuchecks to office [...] Crestor Assessment & Plan (09/07/2023 10:30 PM TOY PACKER): Encouraged patient to follow low fat/low chol diet like the Mediterranean diet. Increase good fats in the diet. Increase exercise. Monitor labs as needed. Continue with Crestor Assessment & Plan (05/21/2023 3:44 PM TOY PACKER): Encouraged patient to follow low fat/low chol diet like the Mediterranean diet. Increase good fats in the diet. Increase exercise. Monitor labs as needed. Continue Crestor Assessment & Plan (07/22/2022 1:49 PM TOY PACKER): Encouraged patient to follow low fat/low chol diet like the Mediterranean diet. Increase good fats in the diet. Increase exercise. Monitor labs as needed. Continue Crestor Assessment & Plan (08/23/2021 9:42 PM TOY PACKER): Encouraged patient to follow fat/low chol diet [...] 12/04/2018 Assessment & Plan (06/11/2024 12:15 PM TOY PACKER): Encouraged smoking cessation. Discussed 3 minutes. Reviewed options for assistance with cessation. Reviewed intermediate designer sequela associated with smoking. Pt declines assistance at this time but may contact the office at anytime for further help as they desire. Assessment & Plan (03/18/2024 8:05 PM CDT): Encouraged smoking cessation. Discussed 3 minutes. Reviewed options for assistance with cessation. Reviewed intermediate designer sequela associated with smoking. Pt declines assistance at this time but may contact the office at anytime for further help as they desire. Declines low-dose CT at this point Assessment & Plan (09/07/2023 10:30 PM TOY PACKER): Encouraged smoking cessation. Discussed 3 minutes. Reviewed options for assistance with cessation. Reviewed intermediate designer sequela associated with smoking. Pt declines assistance at this time but may contact the office at anytime for further help as they desire. Assessment & Plan (07/22/2022 1:47 PM TOY PACKER): Encouraged smoking cessation. Discussed 3 minutes. Reviewed options for assistance with cessation. Reviewed intermediate designer sequela associated with smoking. Pt declines assistance at this time but may contact the office at anytime for further help as they desire. Assessment & Plan (08/23/2021 9:42 PM TOY PACKER): Encouraged smoking cessation. Discussed 3 minutes. Reviewed options for assistance with cessation. Reviewed intermediate designer sequela associated with smoking. Pt declines assistance at this time but may contact the office at anytime for further help as they desire. Assessment & Plan (04/08/2021 2:56 PM CDT): Encouraged smoking cessation. Discussed 3 minutes. Reviewed options for assistance with cessation. Reviewed mcfp sequela associated with smoking. Pt declines assistance at this time but may contact the office at anytime for further help as they desire. Assessment & Plan (01/18/2021 11:39 PM CDT): Encouraged smoking cessation. Discussed 3 minutes. Reviewed options for assistance with cessation. Reviewed intermediate designer sequela associated with smoking. Pt declines assistance at this time but may contact the office at anytime for further help as they desire. Assessment & Plan (09/26/2020 8:30 PM CDT): Encouraged smoking cessation. Discussed 3 minutes. Reviewed options for assistance with cessation. Reviewed mcfp sequela associated with smoking. Pt declines assistance at this time but may contact the office at anytime for further help as they desire. Assessment & Plan (06/14/2020 5:55 PM TOY PACKER): Encouraged smoking cessation. Discussed 3 minutes. Reviewed options for assistance with cessation. Reviewed intermediate designer sequela associated with smoking. Pt declines assistance at this time but may contact the office at anytime for further help as they desire. Assessment & Plan (03/15/2020 11:10 AM CDT): Encouraged smoking cessation. Discussed 3 minutes. Reviewed options for assistance with cessation. Reviewed intermediate designer sequela associated with smoking. Pt declines assistance [...] Reviewed options for assistance with cessation. Reviewed intermediate designer sequela associated with smoking. Pt declines assistance at this time but may contact the office at anytime for further help as they desire. Assessment & Plan (06/17/2019 6:16 PM TOY PACKER): Encouraged smoking cessation. Discussed 3 minutes. Reviewed options for assistance with cessation. Reviewed mcfp sequela associated with smoking. Pt declines assistance at this time but may contact the office at anytime for further help as they desire. Assessment & Plan (01/30/2019 1:03 PM CDT): Encouraged smoking cessation. Discussed approx 3 minutes. Gastroesophageal reflux disease without esophagi tis 12/04/2018 Assessment & Plan (06/11/2024 12:15 PM TOY PACKER): Continue PPI Assessment & Plan (03/18/2024 8:05 PM CDT): Patient has been following closely with Dr. Truong RHODES. She transferred and saw Dr. Nath and had an EGD done. States at this point her symptoms are pretty stable so will just continue to monitor continuing the Bentyl as needed and continue PPI p.r.n. Assessment & Plan (05/21/2023 3:44 PM TOY PACKER): Continue PPI p.r.n.. Continue per GI Assessment & Plan (07/22/2022 1:47 PM TOY PACKER): Continue per Dr. Guerin. She is currentl on omeprazole sucralfate. Will await his recommendations Assessment & Plan (08/23/2021 9:42 PM TOY PACKER): Continue PPI. She is unsure if the [...] 12/04/2018 Assessment & Plan (06/11/2024 12:15 PM TOY PACKER): Supplement Assessment & Plan (03/18/2024 8:06 PM CDT): Supplement Assessment & Plan (09/07/2023 10:30 PM TOY PACKER): Supplement Assessment & Plan (05/21/2023 3:44 PM TOY PACKER): Supplement Assessment & Plan (07/22/2022 1:47 PM TOY PACKER): Supplement Assessment & Plan (09/26/2020 8:14 PM CDT): supplement Assessment & Plan (09/11/2019 9:18 AM CDT): supplement Assessment & Plan (01/30/2019 1:02 PM CDT): supplement COPD (chronic obstructive pulmonary disease) 09/2018 Assessment & Plan (08/26/2024 4:37 PM TOY PACKER): COPD symptoms have been stable. Continue Breo and albuterol p.r.n. Assessment & Plan (08/13/2024 1:18 PM TOY PACKER): Continue with albuterol and Breo as breathing is stable Assessment & Plan (06/11/2024 12:15 PM TOY PACKER): Encouraged complete smoking cessation. Continue Breo and albuterol as needed Assessment & Plan (03/18/2024 8:06 PM CDT): Encouraged complete smoking cessation. Continue albuterol nebs and Breo as needed. Assessment & Plan (09/07/2023 10:30 PM TOY PACKER): Patient with COPD. Continue with albuterol and Breo. Assessment & Plan (05/21/2023 3:44 PM TOY PACKER): Continue Symbicort and albuterol p.r.n. continue Flonase Assessment & Plan (07/22/2022 1:47 PM TOY PACKER): Stressed smoking cessation. Continue Symbicort albuterol inhaler nebulizer p.r.n. Assessment & Plan (07/27/2021 7:15 AM TOY PACKER): Continues Symbicort/prn albuterol Still requires Neb Albuterol [...] basis as instructed. New prescription sent to [facility]. [id number] completed today Assessment & Plan (09/26/2020 8:14 PM CDT): Continue Symbicort and Albuterol prn Assessment & Plan (03/15/2020 11:10 AM CDT): Continue current regimen. Stop smoking Assessment & Plan (09/11/2019 9:18 AM CDT): STOP smoking. Continue with current regimen inhalers Albuterol/Symbicort Assessment & Plan (01/30/2019 12:54 PM CDT): Continue with Symbicort SHERRY (obstructive sleep apnea) 12/02/2018 Assessment & Plan (08/26/2024 4:36 PM TOY PACKER): Patient has been diagnosed with SHERRY. Awaiting titration study for treatment plan. Continue per Dr. Manuel Assessment & Plan (06/11/2024 11:43 AM TOY PACKER): Patient has established with Dr. Manuel. She had her sleep study test that did confirm sleep apnea. Awaiting the titration study Assessment & Plan (03/18/2024 8:03 PM CDT): Patient was diagnosed with sleep apnea at [facility] with Dr. Joseph. She would not wear the mask so sent the machine back. Has been untreated for many years. Continues to snore and have daytime sleepiness. Strongly encouraged re- evaluation. Willing to see Dr. Manuel at [facility]. Referral placed Assessment & Plan (09/07/2023 10:30 PM TOY PACKER): Continue with CPAP Assessment & Plan (07/22/2022 1:36 PM TOY PACKER): Continue CPAP Assessment & Plan (04/08/2021 2:56 [...] 12/02/2018 Assessment & Plan (08/13/2024 1:17 PM TOY PACKER): Continue to follow with Shakira in [place] Dr. Etienne's office. She stopped her clonazepam [...] acutely. Assessment & Plan (06/11/2024 11:43 AM TOY PACKER): Continue per psychiatrist. She continues to take out her medications and they are updated on her chart Assessment & Plan (03/18/2024 8:04 PM CDT): Continue following with her psychiatrist for management of her mental health concerns. Assessment & Plan (09/07/2023 10:30 PM TOY PACKER): Continue per Psychiatry. Current medications include Klonopin Ingrezza Lexapro Vraylar 6 mg Lamictal and lithium Assessment & Plan (05/21/2023 3:45 PM TOY PACKER): Continue per psychiatrist Assessment & Plan (07/22/2022 1:45 PM TOY PACKER): Continue per psychiatrist. Patient states she is on clonazepam, latuda, Hydroxyzine, Cymbalta and Lexapro Assessment & Plan (08/23/2021 9:42 PM TOY PACKER): Per psychiatrist Assessment & Plan (04/08/2021 2:58 PM CDT): Continue per Psychiatry Assessment & Plan (06/14/2020 5:56 PM TOY PACKER): Unsure of exact diagnosis. Medication/treatment plan is [...] 08/26/2024 Assessment & Plan (08/13/2024 1:19 PM TOY PACKER): Advised patient it is difficult to know if she has true hypertension versus anxiety/panic. Recommend doing home readings and calling us in a couple of weeks with those readings. If she can not do them at home she can always come in but I know transportation is sometimes difficult. Need for influenza vaccination 06/11/2024 08/26/2024 Assessment & Plan (06/11/2024 12:16 PM TOY PACKER): Flu vaccine updated in the office today Annual physical exam 06/11/2024 025 Assessment & Plan (06/11/2024 12:16 PM TOY PACKER): Encouraged healthy lifestyle, good nutrition and exercise. [...] 03/17/2024 Assessment & Plan (09/07/2023 10:31 PM TOY PACKER): Encouraged healthy lifestyle, good nutrition and exercise. Encouraged Calcium and Vitamin D and weight bearing exercise for bone health. Reviewed immunizations. Reviewed age appropirate screenings. Medicare Wellness Documentation is completed within the chart BMI 38.0-38.9,adult 05/21/2023 09/07/19 24 Assessment & Plan (05/21/2023 3:46 PM TOY PACKER): Discussed the patient's BMI. The BMI is above average. BMI management plan is completed. BMI Follow-up includes: nutrition counseling, exercise counseling and education provided. BMI 39.0-39.9,adult 07/22/2022 05/04/20 23 Assessment & Plan (07/22/2022 1:48 PM TOY PACKER): Discussed the patient's BMI. The BMI is above average. BMI management plan is completed. BMI Follow-up includes: nutrition counseling, exercise counseling and education provided. Need for vaccination 07/22/2022 Assessment & Plan (05/21/2023 3:46 PM TOY PACKER): Flu vaccine updated in the office Assessment & Plan (07/22/2022 1:48 PM TOY PACKER): Flu vaccine at the office today Encounter for screening mamm ogram for malignant neoplasm of breast 07/22/2022 09/07/2023 Assessment & Plan (07/22/2022 1:48 PM TOY PACKER): Mammogram order provided Bloody diarrhea 04/08/2021 09/07/2023 [...] 09/07/2023 Assessment & Plan (07/22/2022 1:48 PM TOY PACKER): Encouraged healthy lifestyle, good nutrition and exercise. [...] 2016. Prefers to see a provider at [facility]. She is also having burning [...] 01/14/20212022 Assessment & Plan (08/23/2021 9:43 PM TOY PACKER): Obesity is unchanged. Discussed the patient's BMI. [...] 23 Assessment & Plan (07/27/2021 7:21 AM TOY PACKER): Obesity is unchanged. Discussed the patient's BMI. [...] onset of sxs. Check COVID test thru [facility] collection site in [place]. Treat sxs with Tylenol, Cough/cold medication otc [...] water often. If needed, use a hand athletic scout that contains at least 60% alcohol. Clean [...] 04/08/2021 Assessment & Plan (07/22/2020 11:47 AM TOY PACKER): Declines covid 19 testing at this time. Will start on ceftin 500mg bid x 7 days. She was advised to report to office if having otorrhea or worsening of symptoms. Need for immunization against influenza 06/14/2020 02/17/2021 Assessment & Plan (06/14/2020 5:57 PM TOY PACKER): Updated in office today BMI 37.0-37.9, adult 06/10/2020 024 Assessment & Plan (09/07/2023 10:31 PM TOY PACKER): Discussed the patient's BMI. The BMI is above average. BMI management plan is completed. BMI Follow-up includes: nutrition counseling, exercise counseling and education provided. Assessment & Plan (06/10/2020 1:35 PM TOY PACKER): Obesity is unchanged. Discussed the patient's BMI. The BMI is above average. BMI management plan is completed. BMI Follow-up includes: nutrition counseling, exercise counseling and education provided.Obesity is unchanged. Discussed the patient's BMI. Positive depression screening 06/10/2020 08/26/2024 Assessment & Plan (07/22/2020 11:47 AM TOY PACKER): Continue medication same Assessment & Plan (06/14/2020 5:56 PM TOY PACKER): Pt denies any suicidal or homicidal thoughts. [...] 03/17/2024 Assessment & Plan (09/07/2023 10:30 PM TOY PACKER): Probably multifactorial. Check labs and followup to re-evaluate Assessment & Plan (09/11/2019 9:21 AM CDT): Probably multifactorial. Check labs and followup to re-evaluate Hyperglycemia 09/11/2019 03/06/2024 Assessment & Plan (09/07/2023 10:30 PM TOY PACKER): Pre-diabetes/hyperglycemia is a precursor to Dm. Stressed [...] on file Legal Sex Female 4:54 AM TOY PACKER Gender Identity Not on file Sexual Orientation Not on file Occupation Industry Job Start Date Job End Date Disabled Not on file Not on file Not on file Last Filed Vital Signs Vital Sign Reading Time Taken Comments Blood Pressure 110/70 11/01/2024 9:58 AM CDT Pulse 65 11/01/2024 9:58 AM CDT Temperature 36.3 C (97.4 F) 08/15/2024 10:04 AM TOY PACKER Respiratory Rate 16 11/01/2024 9:58 AM CDT Oxygen Saturation 98% 11/01/2024 9:58 AM CDT Inhaled Oxygen Concentration - - Weight 101.2 kg (223 lb) 11/01/2024 9:58 AM CDT Height 154.9 cm (5' 1 ) 11/01/2024 9:58 AM CDT Body Mass Index 42.14 11/01/2024 9:58 AM CDT Plan of Treatment Not on file Procedures Procedure Name Priority Date/Time Associated Diagnosis Comments ELECTROCARDIOGRAM REPORT Routine 11/01/2024 10:27 AM CDT Abnormal ECG SCAN - RADIOLOGY/IMAGING 10/03/2024 SCAN - RADIOLOGY/IMAGING 09/27/2024 HARRIETT TITER & PATTERN Routine 08/28/2024 1:17 PM TOY PACKER HARRIETT QUALITATIVE WITH REFLEX TO HARRIETT QUANTITATIVE Routine 08/28/2024 1:17 PM TOY PACKER Facial rash SCAN - PATHOLOGY 08/24/2024 GI - RESULT 08/24/2024 PSG (COMPLEX) Routine 08/23/2024 7:47 PM TOY PACKER SHERRY (obstructive sleep apnea) ECG 12-LEAD Routine 08/15/2024 10:46 AM TOY PACKER Elevated blood pressure reading SCREENING MAMMOGRAM BILATERAL W ALBERTO Schedule Routine, Read Routine (OP Routine) 08/08/2024 2:15 PM TOY PACKER Breast cancer screening by mammogram ALBUMIN CREATININE RATIO, URINE Routine 06/01/2024 7:12 AM TOY PACKER Type 2 diabetes mellitus with hyperlipidemia (HCC) COMPREHENSIVE METABOLIC PANEL Routine 06/01/2024 7:11 AM TOY PACKER Type 2 diabetes mellitus with hyperlipidemia (HCC) HEMOGLOBIN A1C Routine 06/01/2024 7:11 AM TOY PACKER Type 2 diabetes mellitus with hyperlipidemia (HCC) LIPID PANEL Routine 06/01/2024 7:11 AM TOY PACKER Hyperlipidemia, unspecified hyperlipidemia type HM COLONOSCOPY Routine 05/26/2021 THINPREP UNDERWATER HUNTER PAP (IMAGE GUIDED) LIQUID-BASED PREP Routine 08/03/2017 12:16 PM TOY PACKER from Last 3 Months or Most Recently [...] w/rflx to HARRIETT qn (08/28/2024 1:17 PM TOY PACKER) HARRIETT, qual POSITIVE( A) NEGATIVE [facility] Comment: HARRIETT IFA is a first line screen for detecting the presence of up to approximately 150 autoantibodies in various autoimmune diseases. A positive HARRIETT IFA result is suggestive of autoimmune disease and reflexes to titer and pattern. Further laboratory testing may be considered if clinically indicated. For additional information, please refer to http://education.[employer]/faq/ODR721 (This link is being provided for informational/ educational purposes only.) Blood 08/28/2024 1:17 PM TOY PACKER 08/28/2024 1:18 PM TOY PACKER Narrative [facility] - 08/30/2024 1:13 PM TOY PACKER FASTING:YES FASTING: YES Inez VELASCO LAB BLOOD ORDERABLES Final Result Performing Organization Address [facility] Co de Phone Number [facility] [address] [place] [address] * (ABNORMAL) Antinuclear Antibodies Titer and Pattern (08/28/2024 1:17 PM TOY PACKER) HARRIETT, quant 1:80(H) titer [facility] [...] AC-1: Homogeneous International Consensus on HARRIETT Patterns (https://doi.org/10.1515/lrku-5523-5442) 08/28/2024 1:17 PM TOY PACKER 08/28/2024 1:18 PM TOY PACKER Narrative [facility] - 08/30/2024 1:13 PM TOY PACKER FASTING:YES FASTING: YES Result Hernandez Inez VELASCO LAB BLOOD ORDERABLES Final Result Performing Organization Address [facility] Co de Phone Number [facility] [address] [place] [address] * GI - RESULT (08/24/2024) Anatomical Region Laterality Modality Other us Inez VELASCO Final Resu lt * SCAN - PATHOLOGY (08/24/2024) Provider Scanning Final Result * PSG-Sleep Provider Use Only (08/23/2024 7:47 PM TOY PACKER) Jeffy Manuel MD SLEEP CENTER ORDERABLES F inal Result [facility] [address] [place] [id number], [facility] * ECG 12 lead (08/15/2024 10:46 AM TOY PACKER) Inez VELASCO ECG ORDERABLES Final Resu lt * Screening Mammogram Bilateral W Alberto (08/08/2024 2:15 PM TOY PACKER) Anatomical Region Laterality Modality Breast Bilateral Mammography Impressions 08/08/2024 2:15 PM TOY PACKER 1.No mammographic evidence of malignancy 2.Routine screening recommended for 1 year BI-RADS Category 1 Negative Inez VELASCO IMG MAMMO PROCEDURES Final Result * Albumin Creatinine Ratio, Urine (06/01/2024 7:12 AM TOY PACKER) Creatinine, ur 42 20 - 275 mg/dL [...] a diagnostic category. Urine 06/01/2024 7:12 AM TOY PACKER 06/01/2024 7:13 AM TOY PACKER Inez VELASCO LAB URINE ORDERABLES Final Result [facility] [address] [place] [address] * (ABNORMAL) Hemoglobin A1c (06/01/2024 7:11 AM TOY PACKER) Hgb A1C 5.9(H) <5.7 % of total Hgb [facility] Comment: For someone without known diabetes, [...] diabetes for children. Blood 06/01/2024 7:11 AM TOY PACKER 06/01/2024 7:11 AM TOY PACKER Narrative [facility] - 06/01/2024 9:56 PM TOY PACKER FASTING:YES FASTING: YES Inez VELASCO LAB BLOOD ORDERABLES Final Result Performing Organization Address City/[facility]/ZIP Co de Phone Number [facility] [address] [place] [address] * (ABNORMAL) Lipid panel (06/01/2024 7:11 AM TOY PACKER) Cholesterol 142 <200 mg/dL [facility] HDL 47(L) > OR = 50 mg/dL [facility] Triglycerides 124 <150 mg/dL [facility] LDL 74 mg/dL (calc) [facility] Comment: Reference range: <100 Desirable range <100 mg/dL for primary prevention; <70 mg/dL for patients with CHD or diabetic patients with > or = 2 CHD risk factors. LDL-C is now calculated using the Crystal calculation, which is a validated novel method providing better accuracy than the Friedewald equation in the estimation of LDL-C. Arley SS et al. FRANKY. 2013;310(19): 4793-7748 (http://education.[employer]/faq/IOI813) Chol/HDL ratio 3.0 <5.0 (calc) [facility] Non-HDL, (LDL+VLDL) 95 <130 mg/dL (calc) [facility] Comment: For patients with diabetes plus 1 major ASCVD risk factor, treating to a non-HDL-C goal of <100 mg/dL (LDL-C of <70 mg/dL) is considered a therapeutic option. Blood 06/01/2024 7:11 AM TOY PACKER 06/01/2024 7:11 AM TOY PACKER Narrative [facility] - 06/01/2024 9:56 PM TOY PACKER FASTING:YES FASTING: YES Inez VELASCO LAB BLOOD ORDERABLES Final Result [facility] [address] [place] [address] * Comprehensive metabolic panel (06/01/2024 7:11 AM TOY PACKER) [facility] Glucose 98 65 - 99 mg/dL [facility] Comment: Fasting reference interval BUN 11 7 - 25 mg/dL [facility] Creatinine 0.75 0.50 - 1.03 mg/dL [facility] eGFR 95 > OR = 60 mL/min/1.7 3m2 [employer] [facility] BUN/creat ratio SEE NOTE: 6 - 22 (calc) [facility] Comment: Not Reported: BUN and Creatinine are within reference range. Sodium 136 135 - 146 mmol/L [facility] Potassium, pl 4.3 3.5 - 5.3 mmol/L [facility] Chloride 102 98 - 110 mmol/L [facility] CO2 26 20 - 32 mmol/L [facility] Calcium 9.5 8.6 - 10.4 mg/dL [facility] Protein, sr 6.8 6.1 - [...] [facility] Blood 06/01/2024 7:11 AM TOY PACKER 06/01/2024 7:11 AM TOY PACKER Narrative [facility] - 06/01/2024 9:56 PM TOY PACKER FASTING:YES FASTING: YES Inez VELASCO LAB BLOOD ORDERABLES Final Result [facility] [address] [place] [address] * (ABNORMAL) COLONOSCOPY (05/26/2021) Historical Provider HEALTH MAINTENANCE Edited Result - Final * ThinPrep Gynecologic Pap Test (Image-guided), Liquid-based Preparation (08/03/2017 12:16 PM TOY PACKER) CLINICAL INFORMATION [facility] HISTORICAL RESULTS Comment:Information not prov ided LMP: 07/19 [facility] HISTORICAL RESULTS PREV. PAP: [facility] HISTORICAL RESULTS Comment:MANY YEARS AGO PREV. BX: [facility] HISTORICAL RESULTS Comment:INFORMATION NOT PROV IDED SOURCE: [facility] HISTORICAL RESULTS Comment:Cervix, Endocervix STATEMENT OF ADEQUACY: [facility] HISTORICAL RESULTS Comment: Satisfactory for evaluation. Endocervical/transformation zone component present. INTERPRETATION/RESU LT: [facility] HISTORICAL RESULTS Comment:Negative for intraep ithelial lesion or malignancy. COMMENT: [facility] HISTORICAL RESULTS Comment: This Pap test has been evaluated with computer assisted technology. MECHANICAL SHOP LABORER: [facility] HISTORICAL RESULTS Comment: YQ, CT(ASCP) CT screening location: [place] [address] [address] [place] [address] 08/03/2017 12:1 6 PM TOY PACKER 08/09/2017 8:55 PM TOY PACKER Narrative [facility] HISTORICAL RES[facility] - 08/09/2017 8:41 PM TOY PACKER 0 PERFORMING LAB: [facility] [place] [address] [place] [address] Mahi Mcmahon MD us Historical Provider LAB PATHOLOGY ORDERABLES Final Result [facility] HISTORICAL RESULTS from Last 3 Months or Most Recently Relevant to Health Maintenance Insurance My Study RewardsPR [facility] MEDICARE ADVANTAGE IDPA [facility] MEDICARE ADVANTAGE [facility] MEDICARE ADVANTAGE Advance Directives For more information, please contact: [phone] * Full Code (Latest Code Status on File) Date Activated Date Inactivated Comments 05/29/2022 12:59 PM 05/30/2022 2:26 PM * Full Code Date Activated Date Inactivated Comments 05/28/2022 7:20 PM 05/29/2022 12:59 PM Care Teams Build Manager Relationship Specialty Start Date End Date Inez New PA [address] [place] [address] PCP - General 09/14/17 Candido Guerin MD [address] [place] [address] Consulting Physician Gastroenterology 05/04/23 Anthony Diez MD [address] [place] [address] Consulting Physician Rheumatology 09/18/24
--- OUTSIDE RECORDS SUMMARY | 2024-11-03 14:42 | XMS_ITS | Encounter Summary ---
Author Organization [facility] Facility Care Team Providers Care Die Assembler Name Role Phone Inez New Primary Care Provider [phone] Candido Guerin MD Unavailable [phone] Anthony Diez MD Unavailable [phone] Encounter Details Date Type Department Care Team (Latest Contact Info) Description 10/01/2016 Orders Only [facility] CLINCONV ProviderVishal MD [address] [place] [address] Social History Tobacco Use Types Packs/Day Years Used Date Smoking Tobacco: Never Assessed Comments Unknown Sex and Gender Information Value Date Recorded Sex Assigned at Not on file Legal Sex Female 4:54 AM BLOCKMASON Gender Identity Not on file Sexual Orientation [...] us Historical Provider [facility] CARDIAC SERVICES PROCE DURES Final Result * CARDIOLOGY REPORT (01/05/2017 12:00 AM CDT) Anatomical Region Laterality Modality Other Narrative 01/05/2017 12:00 AM CDT Ordered by an unspecified provider. us Historical Provider CV CARDIAC SERVICES PROCE DURES Final Result documented in this encounter Visit Diagnoses Not on filedocumented in this encounter Additional Health Concerns Infection Onset Date Last Indicated Resolved Time COVID: Suspected 01/10/2020 01/10/2020 01/24/2020 3:08 AM CDT COVID: Suspected 10/22/2020 10/22/2020 11/05/2020 3:05 AM CDT documented as of this encounter Care Teams Die Assembler Relationship Specialty Start Date End Date Inez New PA [address] [place] [address] PCP - General 09/14/17 Candido Guerin MD [address] [place] [address] Consulting Physician Gastroenterology 05/04/23 Anthony Diez MD [address] [place] [address] Consulting Physician Rheumatology 09/18/24 documented as of this encounter
--- OUTSIDE RECORDS SUMMARY | 2024-11-03 14:43 | XMS_ITS | Patient Health Record ---
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 with current management. Using propranolol and sfiz-qdc-kxeawwd anxiety patches (Blaise patches with Ashwagandha and [...] use - Consider prazosin for nightmares, pending engineering illustrator approval due to potential blood pressure effects [...] and blood pressure at home - Obtain engineering illustrator's input on psychiatric medications that may affect [...] family stressors and being alone, leading to fiber optics technician visits and hospitalizations. - Plan: - Continue [...] - Plan: - Continue therapy sessions with PLOW MECHANIC - Explore trauma-focused therapies (e.g., EMDR) to [...] - Plan: - Proceed with the scheduled degreasing wheel operator appointment on the for further evaluation and management. Weight Loss, Poor Appetite, and Vomiting - Assessment: The patient reports losing weight, not eating much, experiencing dry heaves, and frequent vomiting. - Plan: - Monitor the patient's weight and nutritional intake. - Consider referral to a graduate fellow for dietary guidance and support. - Evaluate [...] Recommend the patient to consult with a scene shifter for further evaluation and potential diagnosis. - [...] Details Provider Name:Ale Nelson, 11/16/2024 08:00:00 AM, [address], [address], [address], Provider Name:Kacy brown, 11/19/2024 09:00:00 AM, [address], [facility] [address], [place], [address], Provider Name:Ale Nelson, 12/20/2024 08:00:00 AM, [address], [facility] [address], [place], [address], Insurance Providers Payer Name Payer Address Payer Phone Subscriber Number Group Number Insured Name Patient Relationship to Insured Coverage Start Date Coverage End Date [employer] [address] [place] [phone] [id number] JEREMIAH RUCKER Self - patient is the insured [place] [address] [address] [place] [address] [id number] JEREMIAH RUCKER Self - patient is the [...]
== END 2024-11-02 14:54 | disposition home or self-care (01) ==
LOC: ANHLAB 14:53
PROVIDERS: PCP Physician Assistant; Visit Provider Nurse Practitioner
DX: R19.7 Diarrhea, unspecified (principal)
CPT/HCPCS: 82653; 83993; 87045; 87177; 87209; 87269; 87427; 87449; 87493

== ENCOUNTER → 2024-11-19 09:51 | Outpatient (CLI) | payer MEDICARE, MEDICAID, SELFPAY ==
--- NOTE | ~2024-11-19 | XR_ITS ---
[id number] Ordering provider: Stefan Lizarraga MD History: . R76.0, KNEE JOINT PAIN . Comparison: None. FINDINGS: BONES: No acute fracture or dislocation. JOINT SPACES: Normal. SOFT TISSUES: Normal. IMPRESSION: No acute osseous abnormality right knee. Reviewed, dictated and finalized at location A.
--- NOTE | ~2024-11-19 | XR_ITS ---
[id number] Ordering provider: Stefan Lizarraga MD History: . R76.0, KNEE JOINT PAIN . Comparison: None. FINDINGS: BONES: No acute fracture or dislocation. JOINT SPACES: Normal. SOFT TISSUES: Normal. IMPRESSION: No acute osseous abnormality left knee. Reviewed, dictated and finalized at location A.
== END ==
PROVIDERS: PCP Internal Medicine; Visit Provider Internal Medicine
DX: R76.0 Raised antibody titer (principal)
CPT/HCPCS: 73560

== ENCOUNTER 2025-01-18 13:08 | Outpatient (CLI) | payer MEDICARE, MEDICAID, SELFPAY ==
--- OUTSIDE RECORDS SUMMARY | 2025-01-18 13:13 | XMS_ITS | Encounter Summary ---
Author Organization [facility] Healthcare Address [address] [place] [address] Care Team Providers Care Fur Repairer Name Role Phone Inez New Primary Care Provider [phone] Candido Guerin MD Unavailable [phone] Anthony Diez MD Unavailable [phone] Encounter Details Date Type Department Care Team (Late st Contact Info) Description 11/02/[address] 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 Gender Identity Not on file Sexual Orientation Not on file Occupation Industry Job Start Date Job End Date Disabled Not on file Not on file Not on file documented as of this encounter Plan of Treatment Not on file documented as of this encounter Procedures Procedure Name Priority Date/Time Associated Diagnosis Comments SCAN - LABS 11/02/2024 documented in this encounter Results * SCAN - LABS (11/02/2024) us Provider Scanning Edited Result - Final documented in this encounter Visit Diagnoses Not on filedocumented in this encounter Care Teams Fur Repairer Relationship Specialty Start Date End Date Inez New PA [address] [place] [address] PCP - General 09/14/17 Candido Guerin MD [address] [place] [address] Consulting Physician Gastroenterology 05/04/23 Anthony Diez MD [address] [place] [address] Consulting Physician Rheumatology 09/18/24 documented as of this encounter
--- OUTSIDE RECORDS SUMMARY | 2025-01-18 13:13 | XMS_ITS | Encounter Summary ---
Author Organization [facility] Healthcare Address [address] [place] [address] Care Team Providers Care Certified Registered Locksmith Name Role Phone Inez New Primary Care Provider + [phone] Candido Guerin MD Unavailable [phone] Anthony Deiz MD Unavailable [phone] Encounter Details Date Type Department Care Team (Latest Contact Info) Description 12/05/2024 Results Follow-Up [facility] Family Medicine [address] [place] [address] Inez New PA [address] [place] [address] Comprehensive metabolic panel, CBC with auto differential, Hemoglobin A1c, Additional followed-up results: 4 Social History Tobacco Use Types Packs/Day Years [...] on file 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 Gender Identity Not on file Sexual Orientation Not on file Occupation Industry Job Start Date Job End Date Disabled Not on file Not on file Not on file documented as of this encounter Plan of Treatment Not on file documented as of this encounter Visit Diagnoses Not on filedocumented in this encounter Care Teams Certified Registered Locksmith Relationship Specialty Start Date End Date Inez New PA [address] [place] [address] PCP - General 09/14/17 Candido Guerin MD [address] [place] [address] Consulting Physician Gastroenterology 05/04/23 Anthony Diez MD [address] [place] [address] Consulting Physician Rheumatology 09/18/24 documented as of this encounter
--- OUTSIDE RECORDS SUMMARY | 2025-01-18 13:13 | XMS_ITS | Encounter Summary ---
Author Organization [facility] Care Team Providers Care Asset Protection Officer Name Role Phone Inez New Primary Care Provider [phone] aCndido Guerin MD Unavailable [phone] Anthony Diez MD Unavailable [phone] Encounter Details Date Type Department Care Team (Latest Contact Info) Description 10/07/2017 Orders Only [facility] ProviderVishal MD [address] [place] [id number] Social History Tobacco Use Types Packs/Day Years Used Date Smoking Tobacco: Never Assessed Comments Unknown Sex and Gender Information Value Date Recorded Sex Assigned at Not on file 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
--- OUTSIDE RECORDS SUMMARY | 2025-01-18 13:13 | XMS_ITS | Patient Health Record ---
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 Name Role Phone Rcahell New PA-C Primary Care Provider Unav ailKacy Beal Unavailable [phone] Vitaliy Nelson Ale Unavailable [phone] Polina Hernandez Unavailable [phone] Allergies No Known Allergies Results Component Value Reference Range Notes UDT Reviewed date:07/31/2024 03:17:21 PM Interpretation: Performing Lab: Notes/Report: THC N 0 - 50 ng/ml Cocaine N 0 - 300 ng/ml Amphetamine N 0 - 1000 ng/ml Buprenorphine (BUP) N 0 - 10 ng/ml Secobarbital (Bar) N 0 - 300 ng/ml Oxazepam (BZO) N 0 - 300 ng/ml 2-kulcpsqdmq-4,6-mjoopwfs-8,3-diphenylpyrrolidine (JOHN P) N 0 - 300 ng/ml Methamphetamine (MET) N 0 - 1000 ng/ml Methylenedioxymethamphetamine (MDMA) N 0 - 500 ng/ml Morphine (MOP 300/[id number]) N 0 - 300 ng/ml Methadone (MTD) N 0 - 300 ng/ml Phencyclidine (PCP) N 0 - 25 ng/ml Nortriptyline (TCA) N 0 - 1000 ng/ml Oxycodone N 0 - 300 ng/ml x N 0 - 300 ng/ml Reason For Referral No Information Medications Medication SIG (Take, Route, Frequency, Duration) Notes Start Date End Date Status Cholecalciferol 25 MCG (1000 UT) Oral 11/22/2023 Active Cyclobenzaprine HCl 10 MG Oral 11/22/2023 Not-Taking Fluticasone Propionate Diskus 50 MCG/ACT Inhalation *Reorder from [facility] for eRx and Interaction Alerts* 11/22/2023 Active HYDROcodone-Acetamino phen 5-325 MG Oral 11/22/2023 Not-Taking Omeprazole 40 MG Oral 11/22/2023 Ac tive Dexilant 60 MG Oral 11/22/2023 Not- Taking Meloxicam 15 MG Oral 11/22/2023 Act inder Rosuvastatin Calcium 20 MG Oral 11/22/2023 Active Symbicort 160-4.5 MCG/ACT Inhalation 11/22/2023 Active ProAir HFA 108 (90 Base) MCG/ACT Inhalation 11/22/2023 Active Nebivolol HCl 5 MG TAKE 1 TABLET (5 MG TOTAL) BY MOUTH DAILY. Oral; Duration: 30 Days Active Propranolol HCl 10 MG 1 tablet on an empty stomach Orally twice a day; Duration: 28 days Active Naproxen 375 MG Oral 11/22/2023 Not -Taking Diclofenac Sodium 1% Transdermal 11/22/2023 Not-Taking Propranolol HCl 10 MG TAKE 1 TABLET BY MOUTH TWICE A DAY ON EMPTY STOMACH FOR 30 DAYS Active lamoTRIgine 200 mg 1 tablet oral twice a day; Duration: 28 days Active FLUoxetine HCl 40 MG 1 capsule Orally Once a day Active metFORMIN HCl 500 MG 1 tablet with a meal Orally Once a day Active metroNIDAZOLE 0.75 % 1 application Externally Twice a day Active [place] Carbonate ER 300 mg 1 tablet at bedtime oral daily Active lamoTRIgine 200 mg TAKE 1 TABLET BY MOUTH TWICE A DAY Active Albuterol Sulfate (2.5 MG/3ML) 0.083% Inhalation 11/22/2023 Active Cetirizine HCl 10 MG Oral 11/22/2023 Active Breo Ellipta 200-25 MCG/INH Inhalation 11/22/2023 Active Immunizations Vaccine Route Administration Date Status Comme nts Tdap Unknown 06/30/2017 Administered Pfizer BiontAutomsoft Covid-19 Vaccine 2nd dose Unknown 10/30/2020 Administered Pfizer Biontech Covid-19 Vaccine 2nd dose Unknown 11/25/2020 Administered Novel [id number], preservative free Unknown 06/10/2020 Administered Novel [id number]-[id number], preservative free Unknown 04/06/2021 Administered Influenza, unspecified formulation Unknown 07/02/2019 Administered Influenza, quadrivalent, split virus Unknown 05/14/2019 Administered Source [facility] Code: V00 - [facility] eligibility not determined/unknown Influenza, injectable, MDCK, preservative free Unknown 05/14/2019 Administered Social History Tobacco Use: Social History Observation Description Date Details (start date - stop date) Light tobacco s john NA - NA Sex Assigned At : Social History Observation Description Sex Assigned At Female Household Question Answer Notes Marital status: living with significant other Number of adults in household: 2 Tobacco Control (Standard) Question Answer Notes Tobacco use: Light tobacco smoker How often do you smoke cigarettes? Some days, bu t not every day How many cigarettes a day do you smoke? 6-10 How soon after you wake up d o you smoke your first cigarette? After 60 minutes Are you interested in quitting? Thinking [...] NoDo you have a medical power of patent prosecution attorney?: NoPublic Health and TravelHave you been [...] NoDo you have a medical power of patent prosecution attorney?: NoPublic Health and TravelHave you been [...] NoDo you have a medical power of patent prosecution attorney?: NoPublic Health and TravelHave you been [...] NoDo you have a medical power of patent prosecution attorney?: NoPublic Health and TravelHave you been [...] NoDo you have a medical power of patent prosecution attorney?: NoPublic Health and TravelHave you been [...] NoDo you have a medical power of patent prosecution attorney?: NoPublic Health and TravelHave you been [...] NoDo you have a medical power of patent prosecution attorney?: NoPublic Health and TravelHave you been [...] NoDo you have a medical power of patent prosecution attorney?: NoPublic Health and TravelHave you been [...] NoDo you have a medical power of patent prosecution attorney?: NoPublic Health and TravelHave you been [...] depressed bipolar I disorder without psychotic features (70033853) Bipolar disorder, current episode depressed, severe, without psychotic features (F31.4) 4 Active confirmed Problem Bipolar disorder (57133833) Bipolar disorder, unspecified (F31.9) Active confirmed Problem Generalized anxiety disorder (55878376) Generalized anxiety disorder (F41.1) 4 Active confirmed Problem Posttraumatic stress disorder (08418699) Post-traumatic stress disorder, chronic (F43.12) Active confirmed Problem Borderline personality disorder (51140279) Borderline personality disorder (F60.3) 4 Active confirmed Problem Obstructive sleep apnea syndrome (disorder) (09847352) Obstructive sleep apnea (adult) (pediatric) (G47.33) 4 Active confirmed Problem Tardive dyskinesia (033206095) Tardive dyskinesia (G24.01) Active confirmed Problem Tobacco use (181133005) Nicotine use (Z72.0) Active confirmed Problem Essential hypertension (05872754) Benign essential HTN (I10) Active confirmed Vital Signs Heart Rate 60 /min 12/24/2024 Height-cm 170.18 cm 12/24/2024 Blood pressure diastolic 77 mm Hg 12/24/2024 Weight-kg 99.34 kg 12/24/2024 Height 67.00 in 12/24/2024 Blood pressure systolic 127 mm Hg 12/24/2024 Weight 219 lbs 12/24/2024 BMI 34.3 kg/m2 12/24/2024 Encounters Encounter Location Date Provider Diagnosis [facility] [address] [address] 02/14/2024 Ale Nelson Borderline personali ty disorder F60.3 ; Bipolar disorder, current episode depressed, severe, without psychotic features F31.4 and Generalized anxiety disorder F41.1 [facility] [address] [facility] [address] [place] [address] 02/14/2024 Polina Hernandez Bipolar disorder, current episode depressed, severe, without psychotic features F31.4 ; Generalized anxiety disorder F41.1 ; Borderline personality disorder F60.3 ; Tardive dyskinesia G24.01 and Obstructive sleep apnea (adult) (pediatric) G47.33 [facility] [address] [facility] [address] [place] [address] 03/27/2024 Ale Nelson Bipolar disorder, current episode depressed, severe, without psychotic features F31.4 ; Generalized anxiety disorder F41.1 ; Borderline personality disorder F60.3 and Post-traumatic stress disorder, chronic F43.12 [facility] [address] [address] 04/30/2024 Ale Burks Omar Borderline personali ty disorder F60.3 ; Bipolar disorder, current episode depressed, severe, without psychotic features F31.4 ; Generalized anxiety disorder F41.1 and Post-traumatic stress disorder, chronic F43.12 [facility] [address] [address] 05/24/2024 Alebritney Nelson Borderline personali ty disorder F60.3 ; Severe episode of recurrent major depressive disorder, without psychotic features F33.2 and Post-traumatic stress disorder, chronic F43.12 [place] [address] [address] 06/01/2024 Kacy Marroquin Bipolar disorder, current episode depressed, severe, without psychotic features F31.4 ; Generalized anxiety disorder F41.1 ; Post-traumatic stress disorder, chronic F43.12 ; Tardive dyskinesia G24.01 ; Borderline personality disorder F60.3 ; Benzodiazepine dependence F13.20 and Obstructive sleep apnea (adult) (pediatric) G47.33 [place] [address] [address] 06/19/2024 Ale Nelson Generalized anxiety disorder F41.1 ; Borderline personality disorder F60.3 and Post-traumatic stress disorder, chronic F43.12 [facility] [address] [address] 07/31/2024 Ale Nelson Bipolar disorder, current episode depressed, severe, without psychotic features F31.4 ; Generalized anxiety disorder F41.1 and Borderline personality disorder F60.3 [facility] [address] [address] 07/31/2024 Kacy Marroquin Bipolar disorder, current episode depressed, severe, without psychotic features F31.4 ; Generalized anxiety disorder F41.1 ; Post-traumatic stress disorder, chronic F43.12 ; Tardive dyskinesia G24.01 ; Borderline personality disorder F60.3 and Obstructive sleep apnea (adult) (pediatric) G47.33 [place] [address] [facility] [address] [address] 08/16/2024 Ale Nelson Generalized anxiety disorder F41.1 ; Bipolar disorder, current episode depressed, severe, without psychotic features F31.4 ; Post-traumatic stress disorder, chronic F43.12 and Borderline personality disorder F60.[address] [address] 08/24/2024 Kacy Marroquin Generalized anxiety disorder F41.1 ; Bipolar disorder, current episode depressed, severe, without psychotic features F31.4 ; Post-traumatic stress disorder, chronic F43.12 ; Tardive dyskinesia G24.01 ; Borderline personality disorder F60.3 ; Nicotine dependence with current use F17.200 ; Benign essential HTN I10 and Obstructive sleep apnea (adult) (pediatric) G47.[address] [address] 08/28/2024 Ale Nelson Borderline personali ty disorder F60.3 ; Bipolar disorder, current episode depressed, severe, without psychotic features F31.4 ; Post-traumatic stress disorder, chronic F43.12 and Generalized anxiety disorder F41.[address] [address] 09/03/2024 Ale Nelson Post-traumatic stres s disorder, chronic F43.12 ; Bipolar disorder, current episode depressed, severe, without psychotic features F31.4 ; Generalized anxiety disorder F41.1 and Borderline personality disorder F60.3 [place] [id number] [facility] [address] [address] 09/19/2024 Kacy Marroquin Generalized anxiety disorder F41.1 ; Borderline personality disorder F60.3 ; Post-traumatic stress disorder, chronic F43.12 ; Bipolar disorder, current episode depressed, severe, without psychotic features F31.4 ; Benign essential HTN I10 ; Obstructive sleep apnea (adult) (pediatric) G47.33 ; Nicotine use Z72.0 and Encounter for screening for depression Z13.31 [place] [address] [facility] [address] [address] 11/16/2024 Ale Nelson Bipolar disorder, current episode depressed, severe, without psychotic features F31.4 ; Post-traumatic stress disorder, chronic F43.12 ; Borderline personality disorder F60.3 ; Generalized anxiety disorder F41.1 and Encounter for screening for depression Z13.31 [facility] [employer], [place] [address] [place] [address] 11/19/2024 Kacy Marroquin Bipolar disorder, current episode depressed, severe, without psychotic features F31.4 ; Generalized anxiety disorder F41.1 ; Post-traumatic stress disorder, chronic F43.12 ; Borderline personality disorder F60.3 ; Obstructive sleep apnea (adult) (pediatric) G47.33 ; Nicotine use Z72.0 ; Benign essential HTN I10 and Encounter for screening for depression Z13.31 [facility], [place] [address] [place] [address] 12/24/2024 Kacy Bhavinkarissa Bipolar disorder, current episode depressed, severe, without psychotic features F31.4 ; Generalized anxiety disorder F41.1 ; Post-traumatic stress disorder, chronic F43.12 ; Borderline personality disorder F60.3 ; Nicotine use Z72.0 ; Obstructive sleep apnea (adult) (pediatric) G47.33 ; Benign essential HTN I10 and Encounter for screening for depression Z13.31 [facility], [place] [address] [facility] [address] [place] [address] 08/23/2024 Kacy Marroquin [facility], [place] [address] [place] [address] 12/28/2024 Kacy Marroquin [facility], [place] [address] [place] [address] 02/28/2024 Polina Hernandez [facility], [facility] [address] [place] [address] 03/16/2024 Polina Hernandez [facility], [facility] [address] [place] [address] 04/24/2024 Polina Hernandez [facility], [place] [address] [place] [address] 05/24/2024 [facility], [place] [address] [place] [address] 06/08/2024 Kacy Marroquin [facility], [facility] [address] [facility] [address] [place] [address] 06/11/2024 Kacy Marroquin Bipolar disorder, current episode depressed, severe, without psychotic features F31.4 ; Tardive dyskinesia G24.01 and Generalized anxiety disorder F41.1 [facility], [facility] [address] [facility] [address] [place] [address] 06/18/2024 Kacy Marroquin [facility], [facility] [address] [facility] [address] [place] [address] 08/01/2024 Kacy Marroquin [facility], [facility] [address] [address] 08/03/2024 Kacy Marroquin Generalized anxiety disorder F41.1 [facility], [facility] [address] [address] 08/22/2024 Kacy Marroquin [facility], [facility] [address] [address] 08/24/2024 Kacy Marroquin [facility], [facility] [address] [address] 10/15/2024 [facility] [address] [address] 12/25/2024 Kacy Marroquin Assessments Encounter Date Diagnosis (ICD Code) Assessment Notes Treatment Notes Treatment Clinical Notes Section Notes 02/14/2024 Borderline personality disorder (ICD-10 - F60.3) [...] UDS conf was neg BZO, monitor; denied overtaking/running out; did not get sample today, get [...] liver function tests and consider referral to configuration specialist if needed. Sleep Apnea - Assessment: [...] she will consider getting an implant at [facility]. 05/24/2024 Severe episode of recurrent major depressive [...] she will consider getting an implant at [facility]. 06/01/2024 Bipolar disorder, current episode depressed, severe, [...] liver function tests and consider referral to configuration specialist if needed. Sleep Apnea - Assessment: [...] sorted out. Plans to discuss medications with machine helper as upcoming appointment Plan: - Continue lithium 300mg daily - Continue fluoxetine 40mg daily - Continue lamotrigine 200mg twice daily - Monitor for effectiveness and side effects - Reassess need for medication adjustments after cardiology consultation Anxiety Disorder Assessment: Patient experiences ongoing anxiety with panic attacks, particularly during car rides. Reports some improvement with current management. Using propranolol and jzbb-tjc-zmwftuk anxiety patches (Blaise patches with Ashwagandha and [...] use - Consider prazosin for nightmares, pending machine helper approval due to potential blood pressure effects [...] and blood pressure at home - Obtain machine helper's input on psychiatric medications that may affect [...] in 6 weeks, sooner if concerns arise 11/16/2024 Bipolar disorder, current episode depressed, severe, without psychotic features (ICD-10 - F31.4) 11/19/2024 Bipolar disorder, current episode depressed, severe, without psychotic features (ICD-10 - F31.4) 11/19/2024 Generalized anxiety disorder (ICD-10 - F41.1) taking propanolol as needed currently no refill needed 11/16/2024 Post-traumatic stress disorder, chronic (ICD-10 - F43.12) 12/24/2024 Bipolar disorder, current episode depressed, severe, without psychotic features (ICD-10 - F31.4) I'm considering augmenting therapy with a new medication or starting/swit justine to a new medication Medication considered [id number] Sertraline (Zoloft), CYP2D5 Aripiprazole (Abilify), CYP2D6 Brexpiprazole (Rexulti ), CYP2D6 Iloperidone (Fanapt ) and CYP2D6 Risperidone (Risperdal ) I'm considering a dosage adjustment to currently prescribed medication(s) lamotrigine Have you considered non-genetic factors to make a preliminary drug selection, including a personalized medication decision based on the patient's diagnosis, the patient's other medical conditions, other medications the patient is taking, professional judgment, clinical science and basic science pertinent to the drug (e.g. mechanism of action, side effects), the patient's past medical history, and when pertinent, family history and the patient's preferences and values? Note: Many insurance providers require clinicians to consider non-genetic factors when ordering this test. yes [facility] MTHFR __XX____ Yes NO 12/24/2024 Generalized anxiety disorder (ICD-10 - F41.1) taking propanolol as needed currently no refill needed 12/24/2024 Post-traumatic stress disorder, chronic (ICD-10 - F43.12) 11/16/2024 Borderline personality disorder (ICD-10 - F60.3) 11/19/2024 Post-traumatic stress disorder, chronic (ICD-10 - F43.12) 09/19/2024 Borderline personality disorder (ICD-10 - F60.3) Mood Disorder Assessment: Patient reports ongoing depressive symptoms. Recent restart of lithium has shown some improvement. Potential exacerbation due to psychosocial stressors, including son in rehab and pending medical diagnoses. Discussed options, would like to keep current regimen the same and follow up after medical concerns are sorted out. Plans to discuss medications with machine helper as upcoming appointment Plan: - Continue lithium 300mg daily - Continue fluoxetine 40mg daily - Continue lamotrigine 200mg twice daily - Monitor for effectiveness and side effects - Reassess need for medication adjustments after cardiology consultation Anxiety Disorder Assessment: Patient experiences ongoing anxiety with panic attacks, particularly during car rides. Reports some improvement with current management. Using propranolol and bnjr-aow-fhjwgjr anxiety patches (Blaise patches with Ashwagandha and [...] use - Consider prazosin for nightmares, pending machine helper approval due to potential blood pressure effects [...] and blood pressure at home - Obtain machine helper's input on psychiatric medications that may affect [...] she will consider getting an implant at [facility]. 06/01/2024 Post-traumatic stress disorder, chronic (ICD-10 - [...] liver function tests and consider referral to configuration specialist if needed. Sleep Apnea - Assessment: [...] take only as prescribed, send as 28 day/[place] decrease alcohol, do not combine alcohol and clonazepam cont therapy [10/19/23 seems [facility] fills when filling other 28 day meds, so giving 60 but showed filled 06/13, 07/11, 08/05, 09/01, 09/27. -so effectively since june have moved fill date forward almost 2 wks. now sending as 28 days supply like other meds are filled] 02/14/2024 Borderline personality disorder (ICD-10 - F60.3) [...] liver function tests and consider referral to configuration specialist if needed. Sleep Apnea - Assessment: [...] sorted out. Plans to discuss medications with machine helper as upcoming appointment Plan: - Continue lithium 300mg daily - Continue fluoxetine 40mg daily - Continue lamotrigine 200mg twice daily - Monitor for effectiveness and side effects - Reassess need for medication adjustments after cardiology consultation Anxiety Disorder Assessment: Patient experiences ongoing anxiety with panic attacks, particularly during car rides. Reports some improvement with current management. Using propranolol and pbqc-low-iurxzqk anxiety patches (Blaise patches with Ashwagandha and [...] use - Consider prazosin for nightmares, pending machine helper approval due to potential blood pressure effects [...] and blood pressure at home - Obtain machine helper's input on psychiatric medications that may affect [...] in 6 weeks, sooner if concerns arise 11/19/2024 Borderline personality disorder (ICD-10 - F60.3) 11/16/2024 Generalized anxiety disorder (ICD-10 - F41.1) 12/24/2024 Borderline personality disorder (ICD-10 - F60.3) 11/16/2024 Encounter for screening for depression (ICD-10 - Z13.31) 09/19/2024 Benign essential HTN (ICD-10 - I10) Mood Disorder Assessment: Patient reports ongoing depressive symptoms. Recent restart of lithium has shown some improvement. Potential exacerbation due to psychosocial stressors, including son in rehab and pending medical diagnoses. Discussed options, would like to keep current regimen the same and follow up after medical concerns are sorted out. Plans to discuss medications with machine helper as upcoming appointment Plan: - Continue lithium 300mg daily - Continue fluoxetine 40mg daily - Continue lamotrigine 200mg twice daily - Monitor for effectiveness and side effects - Reassess need for medication adjustments after cardiology consultation Anxiety Disorder Assessment: Patient experiences ongoing anxiety with panic attacks, particularly during car rides. Reports some improvement with current management. Using propranolol and qftf-oaq-vybzrii anxiety patches (Blaise patches with Ashwagandha and [...] use - Consider prazosin for nightmares, pending machine helper approval due to potential blood pressure effects [...] and blood pressure at home - Obtain machine helper's input on psychiatric medications that may affect [...] in 6 weeks, sooner if concerns arise 11/19/2024 Obstructive sleep apnea (adult) (pediatric) (ICD-10 - G47.33) 12/24/2024 Nicotine use (ICD-10 - Z72.0) 09/19/2024 Bipolar disorder, current episode depressed, severe, [...] sorted out. Plans to discuss medications with machine helper as upcoming appointment Plan: - Continue lithium 300mg daily - Continue fluoxetine 40mg daily - Continue lamotrigine 200mg twice daily - Monitor for effectiveness and side effects - Reassess need for medication adjustments after cardiology consultation Anxiety Disorder Assessment: Patient experiences ongoing anxiety with panic attacks, particularly during car rides. Reports some improvement with current management. Using propranolol and lgkz-oib-gnaxiym anxiety patches (Blaise patches with Ashwagandha and [...] use - Consider prazosin for nightmares, pending machine helper approval due to potential blood pressure effects [...] and blood pressure at home - Obtain machine helper's input on psychiatric medications that may affect [...] if indicated by the study results. 02/14/2024 Obstructive sleep apnea (adult) (pediatric) (ICD-10 [...] sorted out. Plans to discuss medications with machine helper as upcoming appointment Plan: - Continue lithium 300mg daily - Continue fluoxetine 40mg daily - Continue lamotrigine 200mg twice daily - Monitor for effectiveness and side effects - Reassess need for medication adjustments after cardiology consultation Anxiety Disorder Assessment: Patient experiences ongoing anxiety with panic attacks, particularly during car rides. Reports some improvement with current management. Using propranolol and ywen-iqq-uakbwec anxiety patches (Blaise patches with Ashwagandha and [...] use - Consider prazosin for nightmares, pending machine helper approval due to potential blood pressure effects [...] and blood pressure at home - Obtain machine helper's input on psychiatric medications that may affect [...] in 6 weeks, sooner if concerns arise 11/19/2024 Nicotine use (ICD-10 - Z72.0) 12/24/2024 Obstructive sleep apnea (adult) (pediatric) (ICD-10 - G47.33) 11/19/2024 Benign essential HTN (ICD-10 - I10) 09/19/2024 Nicotine use (ICD-10 - Z72.0) Mood Disorder Assessment: Patient reports ongoing depressive symptoms. Recent restart of lithium has shown some improvement. Potential exacerbation due to psychosocial stressors, including son in rehab and pending medical diagnoses. Discussed options, would like to keep current regimen the same and follow up after medical concerns are sorted out. Plans to discuss medications with machine helper as upcoming appointment Plan: - Continue lithium 300mg daily - Continue fluoxetine 40mg daily - Continue lamotrigine 200mg twice daily - Monitor for effectiveness and side effects - Reassess need for medication adjustments after cardiology consultation Anxiety Disorder Assessment: Patient experiences ongoing anxiety with panic attacks, particularly during car rides. Reports some improvement with current management. Using propranolol and yqlv-edv-mkzkkhf anxiety patches (Blaise patches with Ashwagandha and [...] use - Consider prazosin for nightmares, pending machine helper approval due to potential blood pressure effects [...] and blood pressure at home - Obtain machine helper's input on psychiatric medications that may affect [...] in 6 weeks, sooner if concerns arise 12/24/2024 Benign essential HTN (ICD-10 - I10) 08/24/2024 Benign essential HTN (ICD-10 - I10) [...] agreeance. - follow up in 4 weeks 08/24/2024 Obstructive sleep apnea (adult) (pediatric) (ICD-10 [...] sorted out. Plans to discuss medications with machine helper as upcoming appointment Plan: - Continue lithium 300mg daily - Continue fluoxetine 40mg daily - Continue lamotrigine 200mg twice daily - Monitor for effectiveness and side effects - Reassess need for medication adjustments after cardiology consultation Anxiety Disorder Assessment: Patient experiences ongoing anxiety with panic attacks, particularly during car rides. Reports some improvement with current management. Using propranolol and hafv-xuj-qzvgujx anxiety patches (Blaise patches with Ashwagandha and [...] use - Consider prazosin for nightmares, pending machine helper approval due to potential blood pressure effects [...] and blood pressure at home - Obtain machine helper's input on psychiatric medications that may affect [...] in 6 weeks, sooner if concerns arise 11/19/2024 Encounter for screening for depression (ICD-10 - Z13.31) 12/24/2024 Encounter for screening for depression (ICD-10 - Z13.31) 07/31/2024 Other Panic Attacks - Assessment: Patient experienced multiple panic attacks in July, often triggered by family stressors and being alone, leading to board winder visits and hospitalizations. - Plan: - Continue [...] - Plan: - Continue therapy sessions with [employer] ATTENDANT - Explore trauma-focused therapies (e.g., EMDR) to [...] - Plan: - Proceed with the scheduled side stapler appointment on the for further evaluation and management. Weight Loss, Poor Appetite, and Vomiting - Assessment: The patient reports losing weight, not eating much, experiencing dry heaves, and frequent vomiting. - Plan: - Monitor the patient's weight and nutritional intake. - Consider referral to a director water and waste services for dietary guidance and support. - Evaluate [...] Recommend the patient to consult with a inclusion teacher for further evaluation and potential diagnosis. - [...] progress and emotional well-being during future visits. 11/16/2024 Other Unintentional Weight Loss and Gastrointestinal Symptoms - Assessment: Jeremiah reports significant weight loss of 35 pounds over approximately 2 months, coinciding with the initiation of doxycycline for rosacea treatment. She is experiencing persistent vomiting and diarrhea, leading to multiple ER visits and severe dehydration. Recent upper GI examination was reportedly normal. - Plan: - Schedule follow-up with side stapler - Recommend reducing alcohol consumption - Follow up with GI specialist to discuss persistent symptoms and consider further diagnostic testing Depression and Functional Impairment - Assessment: Jeremiah reports feeling depressed about her health issues, leading to significant functional impairment. She describes difficulty with daily activities such as housework and personal care. The depression appears to be reactive to her current health concerns and may be exacerbated by alcohol use. - Plan: - Assess for suicidal ideation and safety risks at each visit - Explore non-pharmacological interventions for depression management - Discuss the impact of alcohol on mood and encourage reduction in consumption - Encourage gradual return to daily activities as health improves Alcohol Use - Assessment: Jeremiah reports consuming approximately 9 drinks on drinking days, though not daily. This level of consumption is concerning, particularly in the context of her current health issues and potential medication interactions. Alcohol use may be contributing to or exacerbating her gastrointestinal symptoms and mood disturbances. - Plan: - Educate patient on the risks of heavy alcohol consumption, particularly with her current health concerns - Encourage reduction in alcohol intake and explore patient's willingness to consider abstinence - Discuss coping strategies and alternatives to alcohol use - Consider referral to substance abuse counseling or support groups if patient is amenable - Monitor liver function tests given the level of alcohol consumption 11/19/2024 Other Jeremiah Gordon, a 54-year-old female with a history of bipolar disorder, borderline personality disorder, sleep apnea, and anxiety, presents with significant weight loss, persistent diarrhea, and worsening depression over the past 6-8 weeks. Gastrointestinal Distress and Weight Loss Assessment: Patient reports severe gastrointestinal symptoms including persistent diarrhea for 3 weeks, with frequency of 13-16 bowel movements per day. She experiences abdominal pain, burning sensation in the stomach, and a feeling of heaviness in the pelvic region. These symptoms are accompanied by significant weight loss of approximately 35 pounds over 6-8 weeks, dropping from 253 to 219 pounds. The patient also reports an episode of hematochezia, which prompted an ER visit. The rapid weight loss and GI symptoms are concerning for potential underlying gastrointestinal pathology. Differential diagnoses may include inflammatory bowel disease, malabsorption disorders, or other gastrointestinal conditions. The patient is currently under the care of a underwriting consultant for further evaluation. Plan: - Await results from ongoing GI workup - Follow up with primary care physician in 2 weeks - Monitor weight and nutritional status - Encourage adequate hydration Major Depressive Episode Assessment: Patient reports significant depressive symptoms, including anhedonia, anergia, and passive suicidal ideation. She expresses difficulty with daily tasks, such as laundry taking 5 days to complete. The patient also mentions thoughts of self-harm (wanting to cut). These symptoms appear to be exacerbated by her current medical condition and weight loss. The severity of her depressive symptoms warrants close monitoring, especially given her history of bipolar disorder. Plan: - Continue current psychiatric medications: - Lamotrigine - Fluoxetine - [place] - Monitor for worsening of mood symptoms or suicidal ideation - Follow up in 8 weeks, or sooner if concerns arise - Encourage patient to reach out if anxiety or depression worsens Alcohol Use Assessment: Patient reports fluctuating alcohol intake, with increased use during periods of depression. She typically consumes beer in the evening hours. Given her current medical condition and significant weight loss, alcohol consumption may exacerbate her gastrointestinal symptoms and interact with her medications. Plan: - Advise patient to avoid alcohol use, especially on an empty stomach - Educate on potential interactions between alcohol and current medications - Monitor for signs of alcohol abuse or dependence 12/24/2024 Hamilton Gordon, a patient with a history of diabetes and sleep apnea, presents with depressed mood, anxiety, and concerns about upcoming hernia surgery. Depressive Symptoms Assessment: Patient reports feeling pretty down and experiencing the summer bummers. She expresses a lack of motivation, stating there's times I don't even want to get out of the chair. I have a recliner and I just want to sit all day. No suicidal ideation reported. Current medications include lamotrigine 200 mg twice daily, lithium 300 mg at bedtime, fluoxetine 40 mg (2 capsules), and propranolol 10 mg twice daily as needed. Patient has a history of trials with various psychiatric medications including Vraylar, Ingrezza, olanzapine, and Rexulti. Plan: - Continue current psychiatric medications: - Lamotrigine 200 mg twice daily - [place] 300 mg at bedtime - Fluoxetine 40 mg (2 capsules) - Propranolol 10 mg twice daily as needed - Conduct Genesight testing to guide potential future medication adjustments - Follow-up appointment scheduled in one month Anxiety Assessment: Patient reports experiencing high anxiety, which may be exacerbated by poor sleep due to CPAP issues and concerns about upcoming hernia surgery. Currently taking propranolol 10 mg twice daily as needed for anxiety management. Plan: - Continue propranolol 10 mg twice daily as needed for anxiety - Encourage patient to address CPAP issues with Dr. Bermudez to improve sleep quality Sleep Apnea Assessment: Patient reports difficulty with CPAP mask adherence, stating I'm not doing really well with my mask, my CPAP, it won't stay on my face. This is impacting sleep quality and potentially contributing to anxiety and mood symptoms. Plan: - Advise patient to schedule appointment with Dr. Bermudez to address CPAP mask fitting issues Diabetes (Resolved) Assessment: Patient reports being taken off metformin by her physician, Rachell. The previous weight loss and diabetes diagnosis may have been related to a bowel growth. Current weight is stable at 219 lbs, down from 250 lbs. Plan: - Monitor for any recurrence of diabetic symptoms or significant weight changes Plan Of Treatment Pending Test Test Name Order Date Cytochrome P450 2D6 Genotyping 5 Cytochrome P450 2C9 Genotyping 5 Cytochrome P450 2C19 12/24/2024 Next Appt Details Provider Name:Ale Nelson, 02/08/2025 08:00:00 AM, [address], [address], [address], Provider Name:Kacy brown, 02/08/2025 09:15:00 AM, [address], [facility], [place], [address], Provider Name:Ale Nelson, 03/14/2025 08:00:00 AM, [address], [facility] [address], [place], [address], Insurance Providers Payer Name Payer Address Payer Phone Subscriber Number Group Number Insured Name Patient Relationship to Insured Coverage Start Date Coverage End Date [facility] [address] [place] [phone] [id number] JEREMIAH GORDON Self - patient is the insured [place] [address] [address] [place] [address] [id number] JEREMIAH GORDON Self - patient is the insured Medical [...]
--- OUTSIDE RECORDS SUMMARY | 2025-01-18 13:13 | XMS_ITS | Clinical Summary ---
Author Organization [facility] [address] [facility] Address [address] [place] [address] Care Team Providers Care Software Analyst Name Role Phone Inez New Primary Care Provider [phone] Candido Guerin MD Unavailable [phone] Anthony Diez MD Unavailable [phone] Allergies No known active allergies Medications magnesium [...] daily 90 capsule 1 06/11/20 24 Active metFORMIN (GLUCOPHAGE) 500 mg tabletIndications :Type [...] total) by mouth daily 08/30/19 25 Active Breo Ellipta 200-25 mcg/dose diskus inhalerIndication s:Chronic obstructive pulmonary disease, unspecified COPD type (HCC) INHALE 1 PUFF DAILY RINSE MOUTH AFTER USE DO NOT SWALLOW 60 each 1 01/09/20 25 Active fluticasone furoate-vilantero L (Breo Ellipta) 200-25 mcg/dose diskus inhalerIndication s:Chronic obstructive pulmonary disease, unspecified COPD type (HCC) INHALE 1 PUFF DAILY RINSE MOUTH AFTER USE DO NOT SWALLOW 60 each 1 11/13/19 25 2024 Discontinued Active Problems Problem Noted Date Diagnosed Date Hiatal hernia 12/23/2024 Rosacea 12/23/2024 Dizziness 08/26/2024 Assessment & Plan (08/26/2024 4:47 PM WILDLAND FIRE OPERATIONS SPECIALIST): This is a significant, separately identifiable problem [...] She is in agreement with the plan Hypertension associated with diabetes 08/15/2024 Assessment & Plan (08/26/2024 4:38 PM WILDLAND FIRE OPERATIONS SPECIALIST): Blood pressure still isn't perfectly controlled. Continue with the lisinopril 20. She has not been taking the propranolol so will switch to Bystolic 5 for a q.d. dosing and see how she does. Call in a week with readings. BMI 40.0-44.9, adult 06/11/2024 Assessment & Plan (12/12/2024 8:42 AM CDT): Discussed the patient's BMI. The BMI is above average. BMI management plan is completed. BMI Follow-up includes: nutrition counseling, exercise counseling and education provided. Assessment & Plan (08/15/2024 10:04 AM WILDLAND FIRE OPERATIONS SPECIALIST): Discussed the patient's BMI. The BMI is above average. BMI management plan is completed. BMI Follow-up includes: nutrition counseling, exercise counseling and education provided. Assessment & Plan (08/01/2024 11:21 AM WILDLAND FIRE OPERATIONS SPECIALIST): Discussed the patient's BMI. The BMI is above average. BMI management plan is completed. BMI Follow-up includes: nutrition counseling, exercise counseling and education provided. Assessment & Plan (06/11/2024 12:16 PM WILDLAND FIRE OPERATIONS SPECIALIST): Discussed the patient's BMI. The BMI is above average. BMI management plan is completed. BMI Follow-up includes: nutrition counseling, exercise counseling and education provided. Elevated TSH 03/17/2024 Assessment & Plan (03/18/2024 8:08 PM CDT): Check labs Abnormal thyroid screen (blood) 03/17/2024 Type 2 diabetes mellitus wit hout complication, without long-term current use of insulin 03/17/2024 Assessment & Plan (08/26/2024 4:37 PM WILDLAND FIRE OPERATIONS SPECIALIST): Stressed importance of continued A1c control to minimize the fdc effects of diabetes. Bring accuchecks to office when instructed to do so. Check A1c about every 3-6 months. Take medication as prescribed. Get annual eye exam. Encouraged GLENDY/Statin if able to tolerate. Encouraged weight control and encouraged diabetic diet and exercise. Continue with metformin 500 el A1c is tightly controlled at 5.8 Assessment & Plan (08/13/2024 1:18 PM WILDLAND FIRE OPERATIONS SPECIALIST): Stressed importance of continued A1c control to minimize the fdc effects of diabetes. Bring accuchecks to office when instructed to do so. Check A1c about every 3-6 months. Take medication as prescribed. Get annual eye exam. Encouraged GLENDY/Statin if able to tolerate. Encouraged weight control and encouraged diabetic diet and exercise. A1c is nicely controlled at 5.9. Continue metformin 500 mg Assessment & Plan (06/11/2024 12:15 PM WILDLAND FIRE OPERATIONS SPECIALIST): Stressed importance of continued A1c control to minimize the fdc effects of diabetes. Bring accuchecks to office [...] Discussed with patient at length diabetes, pathogenesis, news camera operator sequela, end organ damage, diet/exercise/weight loss, [...] feet on a regular basis to avoid news camera operator problems. 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 Start metformin 500 mg 1 tablet daily [...] referral Assessment & Plan (09/07/2023 10:34 PM WILDLAND FIRE OPERATIONS SPECIALIST): Ears are clear. Suspect eustachian tube dysfunction. Recommend Flonase, mucinex and antihistamine. If symptoms persist, may need ENT referral. Morbid obesity 07/22/2022 Assessment & Plan (12/12/2024 8:42 AM CDT): Discussed the patient's BMI. The BMI is above average. BMI management plan is completed. BMI Follow-up includes: nutrition counseling, exercise counseling and education provided. Assessment & Plan (08/26/2024 4:37 PM WILDLAND FIRE OPERATIONS SPECIALIST): Discussed the patient's BMI. The BMI is above average. BMI management plan is completed. BMI Follow-up includes: nutrition counseling, exercise counseling and education provided. Assessment & Plan (08/01/2024 11:22 AM WILDLAND FIRE OPERATIONS SPECIALIST): Discussed the patient's BMI. The BMI is above average. BMI management plan is completed. BMI Follow-up includes: nutrition counseling, exercise counseling and education provided. Assessment & Plan (06/11/2024 12:15 PM WILDLAND FIRE OPERATIONS SPECIALIST): Discussed the patient's BMI. The BMI is above average. BMI management plan is completed. BMI Follow-up includes: nutrition counseling, exercise counseling and education provided. Assessment & Plan (03/18/2024 8:06 PM CDT): Discussed the patient's BMI. The BMI is above average. BMI management plan is completed. BMI Follow-up includes: nutrition counseling, exercise counseling and education provided. Assessment & Plan (09/07/2023 10:31 PM WILDLAND FIRE OPERATIONS SPECIALIST): Discussed the patient's BMI. The BMI is above average. BMI management plan is completed. BMI Follow-up includes: nutrition counseling, exercise counseling and education provided. Patient has an obesity-related condition (not limited to: hypertension, obstructive sleep apnea, osteoarthritis, hyperlipidemia, diabetes, etc.). Therefore, morbid obesity may be documented for patients with a BMI between 35.00-39.99. Assessment & Plan (05/21/2023 3:46 PM WILDLAND FIRE OPERATIONS SPECIALIST): Discussed the patient's BMI. The BMI is above average. BMI management plan is completed. BMI Follow-up includes: nutrition counseling, exercise counseling and education provided. Patient has an obesity-related condition (not limited to: hypertension, obstructive sleep apnea, osteoarthritis, hyperlipidemia, diabetes, etc.). Therefore, morbid obesity may be documented for patients with a BMI between 35.00-39.99. Assessment & Plan (07/22/2022 2:01 PM WILDLAND FIRE OPERATIONS SPECIALIST): Discussed the patient's BMI. The BMI is above average. BMI management plan is completed. BMI Follow-up includes: nutrition counseling, exercise counseling and education provided. Patient has an obesity-related condition (not limited to: hypertension, obstructive sleep apnea, osteoarthritis, hyperlipidemia, diabetes, etc.). Therefore, morbid obesity may be documented for patients with a BMI between 35.00-39.99. Symptomatic anemia 05/28/2022 Assessment & Plan (09/07/2023 10:29 PM WILDLAND FIRE OPERATIONS SPECIALIST): Known anemia. Has had transfusion. Continue to [...] Guajardo Assessment & Plan (06/14/2020 5:55 PM WILDLAND FIRE OPERATIONS SPECIALIST): Refer back to Ortho. Offered PT. She [...] 09/11/2019 Assessment & Plan (06/11/2024 12:15 PM WILDLAND FIRE OPERATIONS SPECIALIST): Mammogram order provided Assessment & Plan (08/23/2021 9:43 PM WILDLAND FIRE OPERATIONS SPECIALIST): Mammogram order provided Assessment & Plan (09/26/2020 8:30 PM CDT): Mammogram order provided Assessment & Plan (09/11/2019 9:21 AM CDT): Mammogram order provided Sciatica of right side 06/17/2019 Assessment & Plan (06/17/2019 6:14 PM WILDLAND FIRE OPERATIONS SPECIALIST): Voltaren gel Exercise/Start PT Followup if sxs worsen or don't improved. Vertigo 02/28/2019 Assessment & Plan (03/18/2024 8:06 PM CDT): Uses meclizine p.r.n. with good results Assessment & Plan (09/26/2020 8:29 PM CDT): antivert prn Assessment & Plan (03/15/2020 11:09 AM CDT): Persitent vertigo. 02/2020 CT head was essentially negative. She has finally agreed to vestibular therapy. Will still change neurology referral from [place] to [place] as patient able to arranage transportation easier. [...] 09/2018 Assessment & Plan (08/26/2024 4:36 PM WILDLAND FIRE OPERATIONS SPECIALIST): Encouraged patient to follow low fat/low chol diet like the Mediterranean diet. Increase good fats in the diet. Increase exercise. Monitor labs as needed. Continue Crestor Assessment & Plan (08/13/2024 1:17 PM WILDLAND FIRE OPERATIONS SPECIALIST): Encouraged patient to follow low fat/low chol diet like the Mediterranean diet. Increase good fats in the diet. Increase exercise. Monitor labs as needed. Continue Crestor Assessment & Plan (06/11/2024 11:51 AM WILDLAND FIRE OPERATIONS SPECIALIST): Stressed importance of continued A1c control to minimize the news camera operator effects of diabetes. Bring accuchecks to [...] of continued A1c control to minimize the news camera operator effects of diabetes. Bring accuchecks to [...] Crestor Assessment & Plan (09/07/2023 10:30 PM WILDLAND FIRE OPERATIONS SPECIALIST): Encouraged patient to follow low fat/low chol diet like the Mediterranean diet. Increase good fats in the diet. Increase exercise. Monitor labs as needed. Continue with Crestor Assessment & Plan (05/21/2023 3:44 PM WILDLAND FIRE OPERATIONS SPECIALIST): Encouraged patient to follow low fat/low chol diet like the Mediterranean diet. Increase good fats in the diet. Increase exercise. Monitor labs as needed. Continue Crestor Assessment & Plan (07/22/2022 1:49 PM WILDLAND FIRE OPERATIONS SPECIALIST): Encouraged patient to follow low fat/low chol diet like the Mediterranean diet. Increase good fats in the diet. Increase exercise. Monitor labs as needed. Continue Crestor Assessment & Plan (08/23/2021 9:42 PM WILDLAND FIRE OPERATIONS SPECIALIST): Encouraged patient to follow fat/low chol diet [...] 12/04/2018 Assessment & Plan (06/11/2024 12:15 PM WILDLAND FIRE OPERATIONS SPECIALIST): Encouraged smoking cessation. Discussed 3 minutes. Reviewed options for assistance with cessation. Reviewed fdc sequela associated with smoking. Pt declines assistance at this time but may contact the office at anytime for further help as they desire. Assessment & Plan (03/18/2024 8:05 PM CDT): Encouraged smoking cessation. Discussed 3 minutes. Reviewed options for assistance with cessation. Reviewed fdc sequela associated with smoking. Pt declines assistance at this time but may contact the office at anytime for further help as they desire. Declines low-dose CT at this point Assessment & Plan (09/07/2023 10:30 PM WILDLAND FIRE OPERATIONS SPECIALIST): Encouraged smoking cessation. Discussed 3 minutes. Reviewed options for assistance with cessation. Reviewed fdc sequela associated with smoking. Pt declines assistance at this time but may contact the office at anytime for further help as they desire. Assessment & Plan (07/22/2022 1:47 PM WILDLAND FIRE OPERATIONS SPECIALIST): Encouraged smoking cessation. Discussed 3 minutes. Reviewed options for assistance with cessation. Reviewed news camera operator sequela associated with smoking. Pt declines assistance at this time but may contact the office at anytime for further help as they desire. Assessment & Plan (08/23/2021 9:42 PM WILDLAND FIRE OPERATIONS SPECIALIST): Encouraged smoking cessation. Discussed 3 minutes. Reviewed options for assistance with cessation. Reviewed news camera operator sequela associated with smoking. Pt declines assistance at this time but may contact the office at anytime for further help as they desire. Assessment & Plan (04/08/2021 2:56 PM CDT): Encouraged smoking cessation. Discussed 3 minutes. Reviewed options for assistance with cessation. Reviewed fdc sequela associated with smoking. Pt declines assistance at this time but may contact the office at anytime for further help as they desire. Assessment & Plan (01/18/2021 11:39 PM CDT): Encouraged smoking cessation. Discussed 3 minutes. Reviewed options for assistance with cessation. Reviewed fdc sequela associated with smoking. Pt declines assistance at this time but may contact the office at anytime for further help as they desire. Assessment & Plan (09/26/2020 8:30 PM CDT): Encouraged smoking cessation. Discussed 3 minutes. Reviewed options for assistance with cessation. Reviewed fdc sequela associated with smoking. Pt declines assistance at this time but may contact the office at anytime for further help as they desire. Assessment & Plan (06/14/2020 5:55 PM WILDLAND FIRE OPERATIONS SPECIALIST): Encouraged smoking cessation. Discussed 3 minutes. Reviewed options for assistance with cessation. Reviewed news camera operator sequela associated with smoking. Pt declines assistance at this time but may contact the office at anytime for further help as they desire. Assessment & Plan (03/15/2020 11:10 AM CDT): Encouraged smoking cessation. Discussed 3 minutes. Reviewed options for assistance with cessation. Reviewed fdc sequela associated with smoking. Pt declines assistance [...] Reviewed options for assistance with cessation. Reviewed news camera operator sequela associated with smoking. Pt declines assistance at this time but may contact the office at anytime for further help as they desire. Assessment & Plan (06/17/2019 6:16 PM WILDLAND FIRE OPERATIONS SPECIALIST): Encouraged smoking cessation. Discussed 3 minutes. Reviewed options for assistance with cessation. Reviewed fdc sequela associated with smoking. Pt declines assistance at this time but may contact the office at anytime for further help as they desire. Assessment & Plan (01/30/2019 1:03 PM CDT): Encouraged smoking cessation. Discussed approx 3 minutes. Gastroesophageal reflux disease without esophagi tis 12/04/2018 Assessment & Plan (06/11/2024 12:15 PM WILDLAND FIRE OPERATIONS SPECIALIST): Continue PPI Assessment & Plan (03/18/2024 8:05 PM CDT): Patient has been following closely with Dr. Guerin GI. She transferred and saw Dr. Nath and had an EGD done. States at this point her symptoms are pretty stable so will just continue to monitor continuing the Bentyl as needed and continue PPI p.r.n. Assessment & Plan (05/21/2023 3:44 PM WILDLAND FIRE OPERATIONS SPECIALIST): Continue PPI p.r.n.. Continue per GI Assessment & Plan (07/22/2022 1:47 PM WILDLAND FIRE OPERATIONS SPECIALIST): Continue per Dr. Guerin. She is currentl on omeprazole sucralfate. Will await his recommendations Assessment & Plan (08/23/2021 9:42 PM WILDLAND FIRE OPERATIONS SPECIALIST): Continue PPI. She is unsure if the Dexilant will continue to be covered by her insurance so she will contact us with the letter she has at home with her options. Assessment & Plan (04/08/2021 2:55 PM CDT): Increased reflux symptoms. She is currently on Dexilant. Encouraged to continue with the same regimen. Will refer her to GI Dr. Zamora at [place] she is due for colonoscopy and may [...] 12/04/2018 Assessment & Plan (06/11/2024 12:15 PM WILDLAND FIRE OPERATIONS SPECIALIST): Supplement Assessment & Plan (03/18/2024 8:06 PM CDT): Supplement Assessment & Plan (09/07/2023 10:30 PM WILDLAND FIRE OPERATIONS SPECIALIST): Supplement Assessment & Plan (05/21/2023 3:44 PM WILDLAND FIRE OPERATIONS SPECIALIST): Supplement Assessment & Plan (07/22/2022 1:47 PM WILDLAND FIRE OPERATIONS SPECIALIST): Supplement Assessment & Plan (09/26/2020 8:14 PM CDT): supplement Assessment & Plan (09/11/2019 9:18 AM CDT): supplement Assessment & Plan (01/30/2019 1:02 PM CDT): supplement COPD (chronic obstructive pulmonary disease) 09/2018 Assessment & Plan (08/26/2024 4:37 PM WILDLAND FIRE OPERATIONS SPECIALIST): COPD symptoms have been stable. Continue Breo and albuterol p.r.n. Assessment & Plan (08/13/2024 1:18 PM WILDLAND FIRE OPERATIONS SPECIALIST): Continue with albuterol and Breo as breathing is stable Assessment & Plan (06/11/2024 12:15 PM WILDLAND FIRE OPERATIONS SPECIALIST): Encouraged complete smoking cessation. Continue Breo and albuterol as needed Assessment & Plan (03/18/2024 8:06 PM CDT): Encouraged complete smoking cessation. Continue albuterol nebs and Breo as needed. Assessment & Plan (09/07/2023 10:30 PM WILDLAND FIRE OPERATIONS SPECIALIST): Patient with COPD. Continue with albuterol and Breo. Assessment & Plan (05/21/2023 3:44 PM WILDLAND FIRE OPERATIONS SPECIALIST): Continue Symbicort and albuterol p.r.n. continue Flonase Assessment & Plan (07/22/2022 1:47 PM WILDLAND FIRE OPERATIONS SPECIALIST): Stressed smoking cessation. Continue Symbicort albuterol inhaler nebulizer p.r.n. Assessment & Plan (07/27/2021 7:15 AM WILDLAND FIRE OPERATIONS SPECIALIST): Continues Symbicort/prn albuterol Still requires Neb Albuterol [...] basis as instructed. New prescription sent to [place] [facility]. [id number] completed today Assessment & Plan (09/26/2020 8:14 PM CDT): Continue Symbicort and Albuterol prn Assessment & Plan (03/15/2020 11:10 AM CDT): Continue current regimen. Stop smoking Assessment & Plan (09/11/2019 9:18 AM CDT): STOP smoking. Continue with current regimen inhalers Albuterol/Symbicort Assessment & Plan (01/30/2019 12:54 PM CDT): Continue with Symbicort SHERRY (obstructive sleep apnea) 12/02/2018 Assessment & Plan (08/26/2024 4:36 PM WILDLAND FIRE OPERATIONS SPECIALIST): Patient has been diagnosed with SHERRY. Awaiting titration study for treatment plan. Continue per Dr. Manuel Assessment & Plan (06/11/2024 11:43 AM WILDLAND FIRE OPERATIONS SPECIALIST): Patient has established with Dr. Manuel. She had her sleep study test that did confirm sleep apnea. Awaiting the titration study Assessment & Plan (03/18/2024 8:03 PM CDT): Patient was diagnosed with sleep apnea at [facility] with Dr. Joseph. She would not wear the mask so sent the machine back. Has been untreated for many years. Continues to snore and have daytime sleepiness. Strongly encouraged re- evaluation. Willing to see Dr. Manuel at [facility]. Referral placed Assessment & Plan (09/07/2023 10:30 PM WILDLAND FIRE OPERATIONS SPECIALIST): Continue with CPAP Assessment & Plan (07/22/2022 1:36 PM WILDLAND FIRE OPERATIONS SPECIALIST): Continue CPAP Assessment & Plan (04/08/2021 2:56 [...] 12/02/2018 Assessment & Plan (08/13/2024 1:17 PM WILDLAND FIRE OPERATIONS SPECIALIST): Continue to follow with Shakira in [place] Dr. Etienne's office. She stopped her clonazepam [...] acutely. Assessment & Plan (06/11/2024 11:43 AM WILDLAND FIRE OPERATIONS SPECIALIST): Continue per psychiatrist. She continues to take out her medications and they are updated on her chart Assessment & Plan (03/18/2024 8:04 PM CDT): Continue following with her psychiatrist for management of her mental health concerns. Assessment & Plan (09/07/2023 10:30 PM WILDLAND FIRE OPERATIONS SPECIALIST): Continue per Psychiatry. Current medications include Klonopin Ingrezza Lexapro Vraylar 6 mg Lamictal and lithium Assessment & Plan (05/21/2023 3:45 PM WILDLAND FIRE OPERATIONS SPECIALIST): Continue per psychiatrist Assessment & Plan (07/22/2022 1:45 PM WILDLAND FIRE OPERATIONS SPECIALIST): Continue per psychiatrist. Patient states she is on clonazepam, latuda, Hydroxyzine, Cymbalta and Lexapro Assessment & Plan (08/23/2021 9:42 PM WILDLAND FIRE OPERATIONS SPECIALIST): Per psychiatrist Assessment & Plan (04/08/2021 2:58 PM CDT): Continue per Psychiatry Assessment & Plan (06/14/2020 5:56 PM WILDLAND FIRE OPERATIONS SPECIALIST): Unsure of exact diagnosis. Medication/treatment plan is [...] Problem Noted Date Diagnosed Date Resolved Date Annual physical exam 08/26/2024 025 Assessment & Plan (08/26/2024 4:46 PM WILDLAND FIRE OPERATIONS SPECIALIST): Encouraged healthy lifestyle, good nutrition and exercise. Encouraged Calcium and Vitamin D and weight bearing exercise for bone health. Reviewed immunizations Reviewed age appropirate screenings. Elevated blood pressure reading 08/13/2024 08/26/2024 Assessment & Plan (08/13/2024 1:19 PM WILDLAND FIRE OPERATIONS SPECIALIST): Advised patient it is difficult to know if she has true hypertension versus anxiety/panic. Recommend doing home readings and calling us in a couple of weeks with those readings. If she can not do them at home she can always come in but I know transportation is sometimes difficult. Need for influenza vaccination 06/11/2024 08/26/2024 Assessment & Plan (06/11/2024 12:16 PM WILDLAND FIRE OPERATIONS SPECIALIST): Flu vaccine updated in the office today Annual physical exam 06/11/2024 025 Assessment & Plan (06/11/2024 12:16 PM WILDLAND FIRE OPERATIONS SPECIALIST): Encouraged healthy lifestyle, good nutrition and exercise. [...] 03/17/2024 Assessment & Plan (09/07/2023 10:31 PM WILDLAND FIRE OPERATIONS SPECIALIST): Encouraged healthy lifestyle, good nutrition and exercise. Encouraged Calcium and Vitamin D and weight bearing exercise for bone health. Reviewed immunizations. Reviewed age appropirate screenings. Medicare Wellness Documentation is completed within the chart BMI 38.0-38.9,adult 05/21/2023 09/07/19 24 Assessment & Plan (05/21/2023 3:46 PM WILDLAND FIRE OPERATIONS SPECIALIST): Discussed the patient's BMI. The BMI is above average. BMI management plan is completed. BMI Follow-up includes: nutrition counseling, exercise counseling and education provided. BMI 39.0-39.9,adult 07/22/2022 05/04/20 23 Assessment & Plan (07/22/2022 1:48 PM WILDLAND FIRE OPERATIONS SPECIALIST): Discussed the patient's BMI. The BMI is above average. BMI management plan is completed. BMI Follow-up includes: nutrition counseling, exercise counseling and education provided. Need for vaccination 07/22/2022 024 Assessment & Plan (05/21/2023 3:46 PM WILDLAND FIRE OPERATIONS SPECIALIST): Flu vaccine updated in the office Assessment & Plan (07/22/2022 1:48 PM WILDLAND FIRE OPERATIONS SPECIALIST): Flu vaccine at the office today Encounter for screening mamm ogram for malignant neoplasm of breast 07/22/2022 09/07/2023 Assessment & Plan (07/22/2022 1:48 PM WILDLAND FIRE OPERATIONS SPECIALIST): Mammogram order provided Bloody diarrhea 04/08/2021 09/07/2023 [...] 09/07/2023 Assessment & Plan (07/22/2022 1:48 PM WILDLAND FIRE OPERATIONS SPECIALIST): Encouraged healthy lifestyle, good nutrition and exercise. [...] 2016. Prefers to see a provider at [facility]. She is also having burning [...] 01/14/[id number] Assessment & Plan (08/23/2021 9:43 PM WILDLAND FIRE OPERATIONS SPECIALIST): Obesity is unchanged. Discussed the patient's BMI. [...] 23 Assessment & Plan (07/27/2021 7:21 AM WILDLAND FIRE OPERATIONS SPECIALIST): Obesity is unchanged. Discussed the patient's BMI. [...] onset of sxs. Check COVID test thru [facility] collection site in [place]. Treat sxs with Tylenol, Cough/cold medication otc [...] water often. If needed, use a hand notary public that contains at least 60% alcohol. Clean [...] 04/08/2021 Assessment & Plan (07/22/2020 11:47 AM WILDLAND FIRE OPERATIONS SPECIALIST): Declines covid 19 testing at this time. Will start on ceftin 500mg bid x 7 days. She was advised to report to office if having otorrhea or worsening of symptoms. Need for immunization against influenza 06/14/2020 02/17/2021 Assessment & Plan (06/14/2020 5:57 PM WILDLAND FIRE OPERATIONS SPECIALIST): Updated in office today BMI 37.0-37.9, adult 06/10/2020 024 Assessment & Plan (09/07/2023 10:31 PM WILDLAND FIRE OPERATIONS SPECIALIST): Discussed the patient's BMI. The BMI is above average. BMI management plan is completed. BMI Follow-up includes: nutrition counseling, exercise counseling and education provided. Assessment & Plan (06/10/2020 1:35 PM WILDLAND FIRE OPERATIONS SPECIALIST): Obesity is unchanged. Discussed the patient's BMI. The BMI is above average. BMI management plan is completed. BMI Follow-up includes: nutrition counseling, exercise counseling and education provided.Obesity is unchanged. Discussed the patient's BMI. Positive depression screening 06/10/2020 12/23/2024 Assessment & Plan (07/22/2020 11:47 AM WILDLAND FIRE OPERATIONS SPECIALIST): Continue medication same Assessment & Plan (06/14/2020 5:56 PM WILDLAND FIRE OPERATIONS SPECIALIST): Pt denies any suicidal or homicidal thoughts. [...] 03/17/2024 Assessment & Plan (09/07/2023 10:30 PM WILDLAND FIRE OPERATIONS SPECIALIST): Probably multifactorial. Check labs and followup to re-evaluate Assessment & Plan (09/11/2019 9:21 AM CDT): Probably multifactorial. Check labs and followup to re-evaluate Hyperglycemia 09/11/2019 03/06/2024 Assessment & Plan (09/07/2023 10:30 PM WILDLAND FIRE OPERATIONS SPECIALIST): Pre-diabetes/hyperglycemia is a precursor to Dm. Stressed [...] Encounters Date Type Department Care Team Description 12/12/2024 8:30 AM CDT Office Visit [facility] [address] [place] [address] [address] [place] [address] Inez New [place] Medicare annual wellness visit, subsequent (Primary Dx); Primary osteoarthritis of right knee; Hiatal hernia; Rosacea; Type 2 diabetes mellitus without complication, without long-term current use of insulin (HCC); Type 2 diabetes mellitus with hyperlipidemia (HCC); Hypertension associated with diabetes (HCC); Mental health problem; Cigarette smoker; Immunity status testing; Morbid obesity (HCC); BMI 40.0-44.9, adult (HCC) 12/05/2024 Results Follow-Up [facility] [address] [place] [address] [address] [place] [address] Inez New [place] Comprehensive metabolic panel, CBC with auto differential, Hemoglobin A1c, Additional followed-up results: 4 11/13/2024 Orders Only [facility] [address] [place] [address] [address] [place] [phone] Inez New [place] Hypertension associated with diabetes (HCC) (Primary Dx); Type 2 diabetes mellitus with hyperlipidemia (HCC); Vitamin D deficiency; Annual physical exam; Dizziness; Elevated TSH; Other fatigue; Hyperthyroidism 11/02/2024 Orders Only [facility] Health Information Management [address] [place], [place] [id number] Scanning, Provider 11/01/2024 10:00 AM CDT Office Visit [facility] [address], [place] [phone] Abdullahi Vogel MD Abnormal ECG (Primary Dx) 10/31/2024 Orders Only [facility] Health Information Management [address] [place] [address] Scanning, Provider 10/30/2024 Telephone [facility] [address] [place] [address] Inez New PA from Last [...] ARTHROSCOPY 01/22/2020 Right SINUS SURGERY 01/06/2017 Bilateral HIATAL HERNIA REPAIR 12/02/2024 - 12/31/2024 Medical History Medical History Date Comments Asthma [...] containing alc ohol? 2-3 times a week 12/12/2024 Q2: How many drinks containi ng alcohol do you have on a typical day when you are drinking? 5 or 6 12/12/2024 Q3: How often do you have si x or more drinks on one occasion? Less than monthly 12/12/2024 PHQ-2 Answer Date Recorded PHQ-2 Total Score (If total score is 3 or more points, staff should administer the PHQ-9) 6 12/12/2024 PHQ-9 Answer Date Recorded PHQ-9 Total Score 21 12/12/2024 Comments No Sex and Gender Information Value Date Recorded Sex Assigned at Not on file Legal Sex Female 4:54 AM WILDLAND FIRE OPERATIONS SPECIALIST Gender Identity Not on file Sexual Orientation Not on file Occupation Industry Job Start Date Job End Date Disabled Not on file Not on file Not on file Obstetrics History Last Filed Vital Signs Vital Sign Reading Time Taken Comments Blood Pressure 122/76 12/12/2024 8:41 AM CDT Pulse 70 12/12/2024 8:41 AM CDT Temperature 36.5 C (97.7 F) 12/12/2024 8:41 AM CDT Respiratory Rate 16 11/01/2024 9:58 AM CDT Oxygen Saturation 97% 12/12/2024 8:41 AM CDT Inhaled Oxygen Concentration - - Weight 98.6 kg (217 lb 4.8 oz) 12/12/2024 8:41 A M CDT Height 154.9 cm (5' 1) 12/12/2024 8:41 AM CDT Body Mass Index 41.06 12/12/2024 8:41 AM CDT Plan of Treatment Health Maintenance Due Date Last Done Comments Hepatitis C Screening 1971 Dilated Eye Exam 1971 Foot Exam 1971 Hepatitis B Screening 1989 Pneumococcal vaccine <65 (1 of 2 - PCV) 1990 Cervical Cancer Screening 08/03/2018 08/03/2017, Covid-19 Vaccine (3 - 2023-2 5 season) 2024 11/25/2020, 10/30/2020 Zoster Vaccine (2 of 2) 11/06/2024 09/11/2024 Influenza Vaccine (#1) 2025 , 05/04/2023, 07/22/2022, Additional history exists Hemoglobin A1C 06/05/2025 12/04/2024, 05/05, 03/01/2024, Additional history exists Breast Cancer Screening-Mammogram 08/08/2025 08/08/2024, 07/19/2023, 11/16/2018, Additional history exists Albumin Creatinine Ratio, Urine 12/04/2025 , 06/01/2024 Lipid Panel 12/04/2025 12/04/2024, 05/05, 03/01/2024, Additional history exists eGFR 12/04/2025 12/04/2024, 05/05, 03/01/2024, Additional history exists Depression Screening 12/12/2025 12/12/2024, 12/12/2024, 08/15/2024, Additional history exists Regular Well Visit/Exam 18-64 12/12/2025, 08/15/2024, 06/11/2024, Additional history exists Colon Cancer Screening-Colonoscopy 05/26/20262020, 05/26/2021 DTaP/Tdap/Td Vaccine (2 - Td or Tdap) 06/30/2027 06/30/2017 Procedures Procedure Name Priority Date/Time Associated Diagnosis Comments TSH Routine 12/04/2024 7:26 AM CDT Hyperthyroidism LIPID PANEL Routine 12/04/2024 7:26 AM CDT Type 2 diabetes mellitus with hyperlipidemia (HCC) Annual physical exam HEMOGLOBIN A1C Routine 12/04/2024 7:26 AM CDT Type 2 diabetes mellitus with hyperlipidemia (HCC) Annual physical exam CBC WITH AUTO DIFFERENTIAL Routine 12/04/2024 7:26 AM CDT Annual physical exam Dizziness Other fatigue COMPREHENSIVE METABOLIC PANEL Routine 12/04/2024 7:26 AM CDT Hypertension associated with diabetes (HCC) Type 2 diabetes mellitus with hyperlipidemia (HCC) Annual physical exam VITAMIN D 25 HYDROXY Routine 12/04/2024 7:24 AM CDT Vitamin D deficiency ALBUMIN CREATININE RATIO, URINE Routine 12/04/2024 7:24 AM CDT Type 2 diabetes mellitus with hyperlipidemia (HCC) Annual physical exam SCAN - LABS 11/02/2024 ELECTROCARDIOGRAM REPORT Routine 11/01/2024 10:27 AM CDT Abnormal ECG SCAN - LABS 10/31/2024 SCAN - RADIOLOGY/IMAGING 10/31/2024 SCREENING MAMMOGRAM BILATERAL W ALBERTO Schedule Routine, Read Routine (OP Routine) 08/08/2024 2:15 PM WILDLAND FIRE OPERATIONS SPECIALIST Breast cancer screening by mammogram HM COLONOSCOPY Routine 05/26/2021 THINPREP ASSISTANT SIGNAL MAINTAINER PAP (IMAGE GUIDED) LIQUID-BASED PREP Routine 08/03/2017 12:16 PM WILDLAND FIRE OPERATIONS SPECIALIST from Last 3 Months or Most Recently Relevant to Health Maintenance Results * (ABNORMAL) CBC with auto differential (12/04/2024 7:26 AM CDT) WBC 6.0 3.8 - 10.8 Thousand/u L [facility] RBC, POC 4.48 3.80 - 5.10 Million/uL [facility] Hgb 14.8 11.7 - 15.5 g/dL [facility] Hct 46.1(H) 35.0 - 45.0 % [facility] MCV 102.9(H) 80.0 - 100.0 fL [facility] MCH 33.0 27.0 - 33.0 pg [facility] MCHC 32.1 32.0 - 36.0 g/dL [facility] Comment: For adults, a slight decrease in the calculated MCHC value (in the range of 30 to 32 g/dL) is most likely not clinically significant; however, it should be interpreted with caution in correlation with other red cell parameters and the patient's clinical condition. Rdw 12.8 11.0 - 15.0 % [facility] Platelets 273 140 - 400 Thousand/u L [facility] MPV 9.6 7.5 - 12.5 fL [facility] Neutrophils, abs 3,870 1,500 - 7,800 cells/uL [facility] Lymphocytes, abs 1,308 850 - 3,900 cells/uL [facility] Monocyte abs 570 200 - 950 cells/uL [facility] Eosinophils, abs 210 15 - 500 cells/uL [facility] Basophils, abs 42 0 - 200 cells/uL [facility] Neutrophils 64.5 % [facility] Lymphocyte pct 21.8 % [facility] Monocytes 9.5 % [facility] Eosinophils 3.5 % [facility] Basophils 0.7 % [facility] Blood 12/04/2024 7:26 AM CDT 12/04/2024 7:27 AM CDT Narrative [facility] - 12/04/2024 9:47 PM CDT FASTING:YES FASTING: YES Inez VELASCO LAB BLOOD ORDERABLES Final Result Performing Organization Address [facility] de Phone Number [facility] [address] [place] [address] * TSH (12/04/2024 7:26 AM CDT) TSH 2.63 mIU/L [facility] Comment: Reference Range > or = 20 Years 0.40-4.50 Ranges First trimester 0.26-2.66 Second trimester 0.55-2.73 Third trimester 0.43-2.91 Blood 12/04/2024 7:26 AM CDT 12/04/2024 7:27 AM CDT Narrative [facility] - 12/04/2024 9:47 PM CDT FASTING:YES FASTING: YES Inez VELASCO LAB BLOOD ORDERABLES Final Result Performing Organization Address [facility] Co de Phone Number [facility] [address] [place] [address] * Hemoglobin A1c (12/04/2024 7:26 AM CDT) Hgb A1C 5.3 <5.7 % of total Hgb [facility] Comment: For the purpose of screening for the presence of diabetes: <5.7% Consistent with the absence of diabetes 5.7-6.4% Consistent with increased risk for diabetes (prediabetes) > or =6.5% Consistent with diabetes This assay result is consistent with a decreased risk of diabetes. Currently, no consensus exists regarding use of hemoglobin A1c for diagnosis of diabetes in children. According to [place] Diabetes Association (ADA) guidelines, hemoglobin A1c <7.0% represents optimal control in non- diabetic patients. Different metrics may apply to specific patient populations. Standards of Medical Care in Diabetes(ADA). Blood 12/04/2024 7:26 AM CDT 12/04/2024 7:27 AM CDT Narrative [facility] - 12/04/2024 9:47 PM CDT FASTING:YES FASTING: YES Inez VELASCO LAB BLOOD ORDERABLES Final Result [facility] [address] [place] [address] * (ABNORMAL) Lipid panel (12/04/2024 7:26 AM CDT) [facility] Cholesterol 145 <200 mg/dL [employer] shukri Jackson HDL 44(L) > OR = 50 mg/dL [employer] shukri Jackson Triglycerides 195(H) <150 mg/dL [facility] shukri Jackson LDL 72 mg/dL (calc) [facility] Comment: Reference range: <100 Desirable range <100 mg/dL for primary prevention; <70 mg/dL for patients with CHD or diabetic patients with > or = 2 CHD risk factors. LDL-C is now calculated using the Arley-Marito calculation, which is a validated novel method providing better accuracy than the Friedewald equation in the estimation of LDL-C. Arley SS et al. FRANKY. 2013;310(19): 5767-7649 (http://education.Sonda41.Wochit/faq/PFD207) Chol/HDL ratio 3.3 <5.0 (calc) [employer] shukri Jackson Non-HDL, (LDL+VLDL) 101 <130 mg/dL (calc) [employer] shukri Jackson Comment: For patients with diabetes plus 1 major ASCVD risk factor, treating to a non-HDL-C goal of <100 mg/dL (LDL-C of <70 mg/dL) is considered a therapeutic option. Blood 12/04/2024 7:26 AM CDT 12/04/2024 7:27 AM CDT Narrative [facility] - 12/04/2024 9:47 PM CDT FASTING:YES FASTING: YES Inez VELASCO LAB BLOOD ORDERABLES Final Result [facility] [address] [place] [address] * Comprehensive metabolic panel (12/04/2024 7:26 AM CDT) Pathologist [facility] Glucose 87 65 - 99 mg/dL [facility] [employer] shukri Manuel Comment: Fasting reference interval BUN 11 7 - 25 mg/dL [facility] Creatinine 0.67 0.50 - 1.03 mg/dL [facility] eGFR 104 > OR = 60 mL/min/1.7 3m2 [facility] BUN/creat ratio SEE NOTE: 6 - 22 (calc) [facility] Comment: Not Reported: BUN and Creatinine are within reference range. Sodium 137 135 - 146 mmol/L [facility] Potassium, pl 4.5 3.5 - 5.3 mmol/L [facility] Chloride 101 98 - 110 mmol/L [facility] CO2 27 20 - 32 mmol/L [facility] Calcium 9.3 8.6 - 10.4 mg/dL [facility] Protein, sr 6.5 6.1 - 8.1 g/dL [facility] Albumin 4.2 3.6 - 5.1 g/dL [facility] GLOBULIN 2.3 1.9 - 3.7 g/dL (calc) [facility] Alb/glob ratio 1.8 1.0 - 2.5 (calc) [facility] Bilirubin, total 0.6 0.2 - 1.2 mg/dL [facility] Alk phos 77 37 - 153 U/L [facility] AST 21 10 - 35 U/L [facility] ALT (SGPT) 21 6 - 29 U/L [facility] Blood 12/04/2024 7:26 AM CDT 12/04/2024 7:27 AM CDT Narrative [facility] - 12/04/2024 9:47 PM CDT FASTING:YES FASTING: YES Inez VELASCO LAB BLOOD ORDERABLES Final Result [facility] [address] [place] [address] * Albumin Creatinine Ratio, Urine (12/04/2024 7:24 AM CDT) Creatinine, ur 99 20 - 275 mg/dL [facility] Microalbumin, ur 0.5 See Note: mg/dL [facility] Comment: Reference Range: Reference Range Not established Microalbumin/creat ratio 5 <30 mg/g creat [facility] Comment: The ADA defines abnormalities in albumin excretion as follows: Albuminuria Category Result (mg/g creatinine) Normal to Mildly increased <30 Moderately increased 30-299 Severely increased > OR = 300 The ADA recommends that at least two of three specimens collected within a 3-6 month period be abnormal before considering a patient to be within a diagnostic category. Urine 12/04/2024 7:24 AM CDT 12/04/2024 7:25 AM CDT Narrative [facility] - 12/05/2024 2:57 AM CDT FASTING:YES FASTING: YES Inez VELASCO LAB URINE ORDERABLES Final Result [facility] [address] [address] * Vitamin D 25 hydroxy (12/04/2024 7:24 AM CDT) Vitamin D 25-OH 39 30 - 100 ng/mL [facility] Comment: Vitamin D Status 25-OH Vitamin D: Deficiency: <20 ng/mL Insufficiency: 20 - 29 ng/mL Optimal: > or = 30 ng/mL For 25-OH Vitamin D testing on patients on D2-supplementation and patients for whom quantitation of D2 and D3 fractions is required, the [facility](TM) 25-OH VIT D, (D2,D3), LC/MS/MS is recommended: order code 08505 (patients >2yrs). See Note 1 Note 1 For additional information, please refer to http://education.Derbywire/faq/KCQ235 (This link is being provided for informational/ educational purposes only.) Blood 12/04/2024 7:24 AM CDT 12/04/2024 7:25 AM CDT Narrative [facility] - 12/05/2024 2:57 AM CDT FASTING:YES FASTING: YES Inez VELASCO LAB BLOOD ORDERABLES Final Result Performing Organization Address City/State/[facility] Co de Phone Number [facility] [address] [place] [address] * SCAN - LABS (11/02/2024) Provider Scanning Edited Result - Final * Electrocardiogram Report (11/01/2024 10:27 AM CDT) Abdullahi Vogel MD ECG ORDERABLES Final Result * SCAN - RADIOLOGY/IMAGING (10/31/2024) Anatomical Region Laterality Modality Other us Provider Scanning Final Result * SCAN - LABS (10/31/2024) us Provider Scanning Final Result * Screening Mammogram Bilateral W Alberto (08/08/2024 2:15 PM WILDLAND FIRE OPERATIONS SPECIALIST) Anatomical Region Laterality Modality Breast Bilateral Mammography Impressions 08/08/2024 2:15 PM WILDLAND FIRE OPERATIONS SPECIALIST 1.No mammographic evidence of malignancy 2.Routine screening recommended for 1 year BI-RADS Category 1 Negative us Inez VELASCO IMG MAMMO PROCEDURES Final Result * (ABNORMAL) HM COLONOSCOPY (05/26/2021) Historical Provider HEALTH MAINTENANCE Edited Result - Final * ThinPrep Gynecologic Pap Test (Image-guided), Liquid-based Preparation (08/03/2017 12:16 PM WILDLAND FIRE OPERATIONS SPECIALIST) CLINICAL INFORMATION [facility] HISTORICAL RESULTS Comment:Information not prov ided LMP: 07/19 [facility] PREV. PAP: [facility] HISTORICAL RESULTS Comment:MANY YEARS AGO PREV. BX: [facility] HISTORICAL RESULTS Comment:INFORMATION NOT PROV IDED SOURCE: [facility]ISTORICAL RESULTS Comment:Cervix, Endocervix STATEMENT OF ADEQUACY: [facility] HISTORICAL RESULTS Comment: Satisfactory for evaluation. Endocervical/transformation zone component present. INTERPRETATION/RESU LT: [facility]IST[facility] RESULTS Comment:Negative for intraep ithelial lesion or malignancy. COMMENT: [facility] HISTORICAL RESULTS Comment: This Pap test has been evaluated with computer assisted technology. CONTINUOUS IMPROVEMENT CONSULTANT: [facility] HISTORICAL RESULTS Comment: YQ, CT(ASCP) CT screening location: [place] [address] [place] [address] 08/03/2017 12:1 6 PM WILDLAND FIRE OPERATIONS SPECIALIST 08/09/2017 8:55 PM WILDLAND FIRE OPERATIONS SPECIALIST Narrative [facility] HISTORICAL RESULTS - 08/09/2017 8:41 PM WILDLAND FIRE OPERATIONS SPECIALIST 0 PERFORMING LAB: , [facility] [address] [facility] [address] Mahi Mcmahon MD Historical Provider LAB PATHOLOGY ORDERABLES Final Result [facility] HISTORICAL RESULTS from Last 3 Months or Most Recently Relevant to Health Maintenance Insurance IDPA [facility] MEDICARE ADVANTAGE UHC MEDICARE ADVANTAGE [facility] MEDICARE ADVANTAGE [facility] Address: [facility] [address] [place] [address] Advance Directives For more information, please contact: [phone] * Full Code (Latest Code Status on File) Date Activated Date Inactivated Comments 05/29/2022 12:59 PM 05/30/2022 2:26 PM * Full Code Date Activated Date Inactivated Comments 05/28/2022 7:20 PM 05/29/2022 12:59 PM Care Teams Software Analyst Relationship Specialty Start Date End Date Inez New PA [address] [place] [address] PCP - General 09/14/17 Candido Guerin MD [address] [place] [address] Consulting Physician Gastroenterology 05/04/23 Anthony Diez MD [address] [place] [address] Consulting Physician Rheumatology 09/18/24
--- OUTSIDE RECORDS SUMMARY | 2025-01-18 13:13 | XMS_ITS | Referral Summary ---
Author Organization [facility] [address] [facility] Address [address] [place] [id number] Care Team Providers Care Manager Core Name Role Phone Inez New Primary Care Provider + [phone] Candido Guerin MD Unavailable [phone] Anthony Diez MD Unavailable [phone] Encounters Date Type Department Care Team Description 12/12/2024 8:30 AM CDT Office Visit [facility] [address] [place] [address] [place] [phone] Inez New [place] Medicare annual wellness visit, subsequent (Primary Dx); Primary osteoarthritis of right knee; Hiatal hernia; Rosacea; Type 2 diabetes mellitus without complication, without long-term current use of insulin (HCC); Type 2 diabetes mellitus with hyperlipidemia (HCC); Hypertension associated with diabetes (HCC); Mental health problem; Cigarette smoker; Immunity status testing; Morbid obesity (HCC); BMI 40.0-44.9, adult (HCC) 12/05/2024 Results Follow-Up [facility] [address] [place] [address] [place] [phone] Inez New PA Comprehensive metabolic panel, CBC with auto differential, Hemoglobin A1c, Additional followed-up results: 4 11/13/2024 Orders Only [facility] [place] [address] [facility] [address] [place] [address] Inez New PA Hypertension associated with diabetes (HCC) (Primary Dx); Type 2 diabetes mellitus with hyperlipidemia (HCC); Vitamin D deficiency; Annual physical exam; Dizziness; Elevated TSH; Other fatigue; Hyperthyroidism 11/02/2024 Orders Only [facility] Health Information Management [address] [place] [address] Scanning, Provider 11/01/2024 10:00 AM CDT Office Visit [facility] [address] [facility] [address] [place] [phone] Abdullahi Vogel MD Abnormal ECG (Primary Dx) 10/31/2024 Orders Only [facility] Health Information Management [address] [place] [id number] Scanning, Provider 10/30/2024 Telephone [facility] [address] [facility] [address] [place] [address] Inez New PA from Last [...] AFTER USE DO NOT SWALLOW 60 each 11/13/19 25 2024 Discontinued Active Problems Problem Noted Date Diagnosed Date Hiatal hernia 12/23/2024 Rosacea 12/23/2024 Dizziness 08/26/2024 Assessment & Plan (08/26/2024 4:47 PM GROUP SUPERVISOR YARD): This is a significant, separately identifiable problem [...] 08/15/2024 Assessment & Plan (08/26/2024 4:38 PM GROUP SUPERVISOR YARD): Blood pressure still isn't perfectly controlled. Continue [...] provided. Assessment & Plan (08/15/2024 10:04 AM GROUP SUPERVISOR YARD): Discussed the patient's BMI. The BMI is above average. BMI management plan is completed. BMI Follow-up includes: nutrition counseling, exercise counseling and education provided. Assessment & Plan (08/01/2024 11:21 AM GROUP SUPERVISOR YARD): Discussed the patient's BMI. The BMI is above average. BMI management plan is completed. BMI Follow-up includes: nutrition counseling, exercise counseling and education provided. Assessment & Plan (06/11/2024 12:16 PM GROUP SUPERVISOR YARD): Discussed the patient's BMI. The BMI is above average. BMI management plan is completed. BMI Follow-up includes: nutrition counseling, exercise counseling and education provided. 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 Bring accuchecks to office when instructed to do so. Check A1c about every 3-6 months. Take medication as prescribed. Get annual eye exam. Encouraged GLENDY/Statin if able to tolerate. Encouraged weight control and encouraged diabetic diet and exercise. Continue with metformin 500 el A1c is tightly controlled at 5.8 Assessment & Plan (08/13/2024 1:18 PM GROUP SUPERVISOR YARD): Stressed importance of continued A1c control to [...] mg Assessment & Plan (06/11/2024 12:15 PM GROUP SUPERVISOR YARD): Stressed importance of continued A1c control to [...] Discussed with patient at length diabetes, pathogenesis, sorting machine operator sequela, end organ damage, diet/exercise/weight loss, [...] feet on a regular basis to avoid sorting machine operator problems. Offered referral to railroad brake repairer. Start metformin 500 mg 1 tablet daily [...] referral Assessment & Plan (09/07/2023 10:34 PM GROUP SUPERVISOR YARD): Ears are clear. Suspect eustachian tube dysfunction. Recommend Flonase, mucinex and antihistamine. If symptoms persist, may need ENT referral. Morbid obesity 07/22/2022 Assessment & Plan (12/12/2024 8:42 AM CDT): Discussed the patient's BMI. The BMI is above average. BMI management plan is completed. BMI Follow-up includes: nutrition counseling, exercise counseling and education provided. Assessment & Plan (08/26/2024 4:37 PM GROUP SUPERVISOR YARD): Discussed the patient's BMI. The BMI is above average. BMI management plan is completed. BMI Follow-up includes: nutrition counseling, exercise counseling and education provided. Assessment & Plan (08/01/2024 11:22 AM GROUP SUPERVISOR YARD): Discussed the patient's BMI. The BMI is above average. BMI management plan is completed. BMI Follow-up includes: nutrition counseling, exercise counseling and education provided. Assessment & Plan (06/11/2024 12:15 PM GROUP SUPERVISOR YARD): Discussed the patient's BMI. The BMI is above average. BMI management plan is completed. BMI Follow-up includes: nutrition counseling, exercise counseling and education provided. Assessment & Plan (03/18/2024 8:06 PM CDT): Discussed the patient's BMI. The BMI is above average. BMI management plan is completed. BMI Follow-up includes: nutrition counseling, exercise counseling and education provided. Assessment & Plan (09/07/2023 10:31 PM GROUP SUPERVISOR YARD): Discussed the patient's BMI. The BMI is above average. BMI management plan is completed. BMI Follow-up includes: nutrition counseling, exercise counseling and education provided. Patient has an obesity-related condition (not limited to: hypertension, obstructive sleep apnea, osteoarthritis, hyperlipidemia, diabetes, etc.). Therefore, morbid obesity may be documented for patients with a BMI between 35.00-39.99. Assessment & Plan (05/21/2023 3:46 PM GROUP SUPERVISOR YARD): Discussed the patient's BMI. The BMI is above average. BMI management plan is completed. BMI Follow-up includes: nutrition counseling, exercise counseling and education provided. Patient has an obesity-related condition (not limited to: hypertension, obstructive sleep apnea, osteoarthritis, hyperlipidemia, diabetes, etc.). Therefore, morbid obesity may be documented for patients with a BMI between 35.00-39.99. Assessment & Plan (07/22/2022 2:01 PM GROUP SUPERVISOR YARD): Discussed the patient's BMI. The BMI is above average. BMI management plan is completed. BMI Follow-up includes: nutrition counseling, exercise counseling and education provided. Patient has an obesity-related condition (not limited to: hypertension, obstructive sleep apnea, osteoarthritis, hyperlipidemia, diabetes, etc.). Therefore, morbid obesity may be documented for patients with a BMI between 35.00-39.99. Symptomatic anemia 05/28/2022 Assessment & Plan (09/07/2023 10:29 PM GROUP SUPERVISOR YARD): Known anemia. Has had transfusion. Continue to [...] Guajardo Assessment & Plan (06/14/2020 5:55 PM GROUP SUPERVISOR YARD): Refer back to Ortho. Offered PT. She [...] 09/11/2019 Assessment & Plan (06/11/2024 12:15 PM GROUP SUPERVISOR YARD): Mammogram order provided Assessment & Plan (08/23/2021 9:43 PM GROUP SUPERVISOR YARD): Mammogram order provided Assessment & Plan (09/26/2020 8:30 PM CDT): Mammogram order provided Assessment & Plan (09/11/2019 9:21 AM CDT): Mammogram order provided Sciatica of right side 06/17/2019 Assessment & Plan (06/17/2019 6:14 PM GROUP SUPERVISOR YARD): Voltaren gel Exercise/Start PT Followup if sxs worsen or don't improved. Vertigo 02/28/2019 Assessment & Plan (03/18/2024 8:06 PM CDT): Uses meclizine p.r.n. with good results Assessment & Plan (09/26/2020 8:29 PM CDT): antivert prn Assessment & Plan (03/15/2020 11:09 AM CDT): Persitent vertigo. 02/2020 CT head was essentially negative. She has finally agreed to vestibular therapy. Will still change neurology referral from [place] as patient able to arranage transportation easier. [...] 09/2018 Assessment & Plan (08/26/2024 4:36 PM GROUP SUPERVISOR YARD): Encouraged patient to follow low fat/low chol diet like the Mediterranean diet. Increase good fats in the diet. Increase exercise. Monitor labs as needed. Continue Crestor Assessment & Plan (08/13/2024 1:17 PM GROUP SUPERVISOR YARD): Encouraged patient to follow low fat/low chol diet like the Mediterranean diet. Increase good fats in the diet. Increase exercise. Monitor labs as needed. Continue Crestor Assessment & Plan (06/11/2024 11:51 AM GROUP SUPERVISOR YARD): Stressed importance of continued A1c control to [...] Increase exercise. Monitor labs as needed. Continue [facility] Assessment & Plan (09/07/2023 10:30 PM GROUP SUPERVISOR YARD): Encouraged patient to follow low fat/low chol diet like the Mediterranean diet. Increase good fats in the diet. Increase exercise. Monitor labs as needed. Continue with [facility] Assessment & Plan (05/21/2023 3:44 PM GROUP SUPERVISOR YARD): Encouraged patient to follow low fat/low chol diet like the Mediterranean diet. Increase good fats in the diet. Increase exercise. Monitor labs as needed. Continue [facility] Assessment & Plan (07/22/2022 1:49 PM GROUP SUPERVISOR YARD): Encouraged patient to follow low fat/low chol diet like the Mediterranean diet. Increase good fats in the diet. Increase exercise. Monitor labs as needed. Continue [facility] Assessment & Plan (08/23/2021 9:42 PM GROUP SUPERVISOR YARD): Encouraged patient to follow fat/low chol diet like the Mediterranean diet. Increase good fats in the diet. Increase exercise. Monitor labs as needed. Continue [facility] Assessment & Plan (04/08/2021 3:01 PM CDT): [...] 12/04/2018 Assessment & Plan (06/11/2024 12:15 PM GROUP SUPERVISOR YARD): Encouraged smoking cessation. Discussed 3 minutes. Reviewed [...] point Assessment & Plan (09/07/2023 10:30 PM GROUP SUPERVISOR YARD): Encouraged smoking cessation. Discussed 3 minutes. Reviewed options for assistance with cessation. Reviewed senior living sequela associated with smoking. Pt declines assistance at this time but may contact the office at anytime for further help as they desire. Assessment & Plan (07/22/2022 1:47 PM GROUP SUPERVISOR YARD): Encouraged smoking cessation. Discussed 3 minutes. Reviewed options for assistance with cessation. Reviewed senior living sequela associated with smoking. Pt declines assistance at this time but may contact the office at anytime for further help as they desire. Assessment & Plan (08/23/2021 9:42 PM GROUP SUPERVISOR YARD): Encouraged smoking cessation. Discussed 3 minutes. Reviewed options for assistance with cessation. Reviewed sorting machine operator sequela associated with smoking. Pt declines [...] Reviewed options for assistance with cessation. Reviewed sorting machine operator sequela associated with smoking. Pt declines assistance at this time but may contact the office at anytime for further help as they desire. Assessment & Plan (06/14/2020 5:55 PM GROUP SUPERVISOR YARD): Encouraged smoking cessation. Discussed 3 minutes. Reviewed options for assistance with cessation. Reviewed sorting machine operator sequela associated with smoking. Pt declines assistance at this time but may contact the office at anytime for further help as they desire. Assessment & Plan (03/15/2020 11:10 AM CDT): Encouraged smoking cessation. Discussed 3 minutes. Reviewed options for assistance with cessation. Reviewed sorting machine operator sequela associated with smoking. Pt declines [...] Reviewed options for assistance with cessation. Reviewed sorting machine operator sequela associated with smoking. Pt declines assistance at this time but may contact the office at anytime for further help as they desire. Assessment & Plan (06/17/2019 6:16 PM GROUP SUPERVISOR YARD): Encouraged smoking cessation. Discussed 3 minutes. Reviewed [...] 12/04/2018 Assessment & Plan (06/11/2024 12:15 PM GROUP SUPERVISOR YARD): Continue PPI Assessment & Plan (03/18/2024 8:05 PM CDT): Patient has been following closely with Dr. Guerin GI. She transferred and saw Dr. Nath and had an EGD done. States at this point her symptoms are pretty stable so will just continue to monitor continuing the Bentyl as needed and continue PPI p.r.n. Assessment & Plan (05/21/2023 3:44 PM GROUP SUPERVISOR YARD): Continue PPI p.r.n.. Continue per GI Assessment & Plan (07/22/2022 1:47 PM GROUP SUPERVISOR YARD): Continue per Dr. Guerin. She is currentl on omeprazole sucralfate. Will await his recommendations Assessment & Plan (08/23/2021 9:42 PM GROUP SUPERVISOR YARD): Continue PPI. She is unsure if the Dexilant will continue to be covered by her insurance so she will contact us with the letter she has at home with her options. Assessment & Plan (04/08/2021 2:55 PM CDT): Increased reflux symptoms. She is currently on Dexilant. Encouraged to continue with the same regimen. Will refer her to GI Dr. Zamora at [place] she is due for colonoscopy and may [...] 12/04/2018 Assessment & Plan (06/11/2024 12:15 PM GROUP SUPERVISOR YARD): Supplement Assessment & Plan (03/18/2024 8:06 PM CDT): Supplement Assessment & Plan (09/07/2023 10:30 PM GROUP SUPERVISOR YARD): Supplement Assessment & Plan (05/21/2023 3:44 PM GROUP SUPERVISOR YARD): Supplement Assessment & Plan (07/22/2022 1:47 PM GROUP SUPERVISOR YARD): Supplement Assessment & Plan (09/26/2020 8:14 PM CDT): supplement Assessment & Plan (09/11/2019 9:18 AM CDT): supplement Assessment & Plan (01/30/2019 1:02 PM CDT): supplement COPD (chronic obstructive pulmonary disease) 09/2018 Assessment & Plan (08/26/2024 4:37 PM GROUP SUPERVISOR YARD): COPD symptoms have been stable. Continue Breo and albuterol p.r.n. Assessment & Plan (08/13/2024 1:18 PM GROUP SUPERVISOR YARD): Continue with albuterol and Breo as breathing is stable Assessment & Plan (06/11/2024 12:15 PM GROUP SUPERVISOR YARD): Encouraged complete smoking cessation. Continue Breo and albuterol as needed Assessment & Plan (03/18/2024 8:06 PM CDT): Encouraged complete smoking cessation. Continue albuterol nebs and Breo as needed. Assessment & Plan (09/07/2023 10:30 PM GROUP SUPERVISOR YARD): Patient with COPD. Continue with albuterol and Breo. Assessment & Plan (05/21/2023 3:44 PM GROUP SUPERVISOR YARD): Continue Symbicort and albuterol p.r.n. continue Flonase Assessment & Plan (07/22/2022 1:47 PM GROUP SUPERVISOR YARD): Stressed smoking cessation. Continue Symbicort albuterol inhaler nebulizer p.r.n. Assessment & Plan (07/27/2021 7:15 AM GROUP SUPERVISOR YARD): Continues Symbicort/prn albuterol Still requires Neb Albuterol [...] basis as instructed. New prescription sent to [place] pharmacy. [id number] completed today Assessment & Plan (09/26/2020 8:14 PM CDT): Continue Symbicort and Albuterol prn Assessment & Plan (03/15/2020 11:10 AM CDT): Continue current regimen. Stop smoking Assessment & Plan (09/11/2019 9:18 AM CDT): STOP smoking. Continue with current regimen inhalers Albuterol/Symbicort Assessment & Plan (01/30/2019 12:54 PM CDT): Continue with Symbicort SHERRY (obstructive sleep apnea) 12/02/2018 Assessment & Plan (08/26/2024 4:36 PM GROUP SUPERVISOR YARD): Patient has been diagnosed with SHERRY. Awaiting titration study for treatment plan. Continue per Dr. Manuel Assessment & Plan (06/11/2024 11:43 AM GROUP SUPERVISOR YARD): Patient has established with Dr. Manuel. She had her sleep study test that did confirm sleep apnea. Awaiting the titration study Assessment & Plan (03/18/2024 8:03 PM CDT): Patient was diagnosed with sleep apnea at [facility] with Dr. Joseph. She would not wear the mask so sent the machine back. Has been untreated for many years. Continues to snore and have daytime sleepiness. Strongly encouraged re- evaluation. Willing to see Dr. Manuel at [facility]. Referral placed Assessment & Plan (09/07/2023 10:30 PM GROUP SUPERVISOR YARD): Continue with CPAP Assessment & Plan (07/22/2022 1:36 PM GROUP SUPERVISOR YARD): Continue CPAP Assessment & Plan (04/08/2021 2:56 [...] 12/02/2018 Assessment & Plan (08/13/2024 1:17 PM GROUP SUPERVISOR YARD): Continue to follow with [facility] in [place] Dr. Etienne's office. She stopped her clonazepam [...] acutely. Assessment & Plan (06/11/2024 11:43 AM GROUP SUPERVISOR YARD): Continue per psychiatrist. She continues to take out her medications and they are updated on her chart Assessment & Plan (03/18/2024 8:04 PM CDT): Continue following with her psychiatrist for management of her mental health concerns. Assessment & Plan (09/07/2023 10:30 PM GROUP SUPERVISOR YARD): Continue per Psychiatry. Current medications include Klonopin Ingrezza Lexapro Vraylar 6 mg Lamictal and lithium Assessment & Plan (05/21/2023 3:45 PM GROUP SUPERVISOR YARD): Continue per psychiatrist Assessment & Plan (07/22/2022 1:45 PM GROUP SUPERVISOR YARD): Continue per psychiatrist. Patient states she is on clonazepam, latuda, Hydroxyzine, Cymbalta and Lexapro Assessment & Plan (08/23/2021 9:42 PM GROUP SUPERVISOR YARD): Per psychiatrist Assessment & Plan (04/08/2021 2:58 PM CDT): Continue per Psychiatry Assessment & Plan (06/14/2020 5:56 PM GROUP SUPERVISOR YARD): Unsure of exact diagnosis. Medication/treatment plan is [...] 025 Assessment & Plan (08/26/2024 4:46 PM GROUP SUPERVISOR YARD): Encouraged healthy lifestyle, good nutrition and exercise. Encouraged Calcium and Vitamin D and weight bearing exercise for bone health. Reviewed immunizations Reviewed age appropirate screenings. Elevated blood pressure reading 08/13/2024 08/26/2024 Assessment & Plan (08/13/2024 1:19 PM GROUP SUPERVISOR YARD): Advised patient it is difficult to know if she has true hypertension versus anxiety/panic. Recommend doing home readings and calling us in a couple of weeks with those readings. If she can not do them at home she can always come in but I know transportation is sometimes difficult. Need for influenza vaccination 06/11/2024 08/26/2024 Assessment & Plan (06/11/2024 12:16 PM GROUP SUPERVISOR YARD): Flu vaccine updated in the office today Annual physical exam 06/11/2024 025 Assessment & Plan (06/11/2024 12:16 PM GROUP SUPERVISOR YARD): Encouraged healthy lifestyle, good nutrition and exercise. [...] 03/17/2024 Assessment & Plan (09/07/2023 10:31 PM GROUP SUPERVISOR YARD): Encouraged healthy lifestyle, good nutrition and exercise. Encouraged Calcium and Vitamin D and weight bearing exercise for bone health. Reviewed immunizations. Reviewed age appropirate screenings. Medicare Wellness Documentation is completed within the chart BMI 38.0-38.9,adult 05/21/2023 09/07/19 24 Assessment & Plan (05/21/2023 3:46 PM GROUP SUPERVISOR YARD): Discussed the patient's BMI. The BMI is above average. BMI management plan is completed. BMI Follow-up includes: nutrition counseling, exercise counseling and education provided. BMI 39.0-39.9,adult 07/22/2022 05/04/20 23 Assessment & Plan (07/22/2022 1:48 PM GROUP SUPERVISOR YARD): Discussed the patient's BMI. The BMI is above average. BMI management plan is completed. BMI Follow-up includes: nutrition counseling, exercise counseling and education provided. Need for vaccination 07/22/2022 024 Assessment & Plan (05/21/2023 3:46 PM GROUP SUPERVISOR YARD): Flu vaccine updated in the office Assessment & Plan (07/22/2022 1:48 PM GROUP SUPERVISOR YARD): Flu vaccine at the office today Encounter for screening mamm ogram for malignant neoplasm of breast 07/22/2022 09/07/2023 Assessment & Plan (07/22/2022 1:48 PM GROUP SUPERVISOR YARD): Mammogram order provided Bloody diarrhea 04/08/2021 09/07/2023 [...] 09/07/2023 Assessment & Plan (07/22/2022 1:48 PM GROUP SUPERVISOR YARD): Encouraged healthy lifestyle, good nutrition and exercise. [...] 2016. Prefers to see a provider at [facility]. She is also having burning in the [...] 01/14/20212022 Assessment & Plan (08/23/2021 9:43 PM GROUP SUPERVISOR YARD): Obesity is unchanged. Discussed the patient's BMI. [...] 23 Assessment & Plan (07/27/2021 7:21 AM GROUP SUPERVISOR YARD): Obesity is unchanged. Discussed the patient's BMI. [...] of sxs. Check COVID test thru [facility] collection site in [place]. Treat sxs with Tylenol, Cough/cold medication otc [...] water often. If needed, use a hand deputy chief magistrate that contains at least 60% alcohol. Clean [...] 04/08/2021 Assessment & Plan (07/22/2020 11:47 AM GROUP SUPERVISOR YARD): Declines covid 19 testing at this time. Will start on ceftin 500mg bid x 7 days. She was advised to report to office if having otorrhea or worsening of symptoms. Need for immunization against influenza 06/14/2020 02/17/2021 Assessment & Plan (06/14/2020 5:57 PM GROUP SUPERVISOR YARD): Updated in office today BMI 37.0-37.9, adult 06/10/2020 024 Assessment & Plan (09/07/2023 10:31 PM GROUP SUPERVISOR YARD): Discussed the patient's BMI. The BMI is above average. BMI management plan is completed. BMI Follow-up includes: nutrition counseling, exercise counseling and education provided. Assessment & Plan (06/10/2020 1:35 PM GROUP SUPERVISOR YARD): Obesity is unchanged. Discussed the patient's BMI. The BMI is above average. BMI management plan is completed. BMI Follow-up includes: nutrition counseling, exercise counseling and education provided.Obesity is unchanged. Discussed the patient's BMI. Positive depression screening 06/10/2020 12/23/2024 Assessment & Plan (07/22/2020 11:47 AM GROUP SUPERVISOR YARD): Continue medication same Assessment & Plan (06/14/2020 5:56 PM GROUP SUPERVISOR YARD): Pt denies any suicidal or homicidal thoughts. [...] 03/17/2024 Assessment & Plan (09/07/2023 10:30 PM GROUP SUPERVISOR YARD): Probably multifactorial. Check labs and followup to re-evaluate Assessment & Plan (09/11/2019 9:21 AM CDT): Probably multifactorial. Check labs and followup to re-evaluate Hyperglycemia 09/11/2019 03/06/2024 Assessment & Plan (09/07/2023 10:30 PM GROUP SUPERVISOR YARD): Pre-diabetes/hyperglycemia is a precursor to Dm. 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 PAP (IMAGE GUIDED) LIQUID-BASED PREP Routine 08/03/2017 12:16 PM GROUP SUPERVISOR YARD from Last 3 Months or Most Recently Relevant to Health Maintenance Results * (ABNORMAL) CBC with auto differential (12/04/2024 7:26 AM CDT) Pathologist [facility] WBC 6.0 3.8 - 10.8 Thousand/u L [...] BLOOD ORDERABLES Final Result Performing Organization Address [facility] Co de Phone Number [facility] [address] [place] [address] * TSH (12/04/2024 7:26 AM CDT) [facility] TSH 2.63 mIU/L [facility] Comment: Reference Range > or = 20 Years 0.40-4.50 Ranges First trimester 0.26-2.66 Second trimester 0.55-2.73 Third trimester 0.43-2.91 Blood 12/04/2024 7:26 AM CDT 12/04/2024 7:27 AM CDT Narrative [facility] - 12/04/2024 9:47 PM CDT FASTING:YES FASTING: YES Inez VELASCO LAB BLOOD ORDERABLES Final Result Performing Organization Address [facility] de Phone Number [facility] [address] [place] [address] * Hemoglobin A1c (12/04/2024 7:26 AM CDT) Pathologist [facility] [place] Hgb A1C 5.3 <5.7 % of total Hgb [facility] Comment: For the purpose of screening for the presence of diabetes: <5.7% Consistent with the absence of diabetes 5.7-6.4% Consistent with increased risk for diabetes (prediabetes) > or =6.5% Consistent with diabetes This assay result is consistent with a decreased risk of diabetes. Currently, no consensus exists regarding use of hemoglobin A1c for diagnosis of diabetes in children. According to [place] Diabetes Association (ADA) guidelines, hemoglobin A1c <7.0% represents optimal control in non- diabetic patients. Different metrics may apply to specific patient populations. Standards of Medical Care in Diabetes(ADA). Blood 12/04/2024 7:26 AM CDT 12/04/2024 7:27 AM CDT Narrative [facility] - 12/04/2024 9:47 PM CDT FASTING:YES FASTING: YES Inez VELASCO LAB BLOOD ORDERABLES Final Result [facility] [address] [place] [address] * (ABNORMAL) Lipid panel (12/04/2024 7:26 AM CDT) Cholesterol 145 <200 mg/dL [employer] shukri Jackson HDL 44(L) > OR = 50 mg/dL [employer] shukri Jackson Triglycerides 195(H) <150 mg/dL [employer] shukri Jackson LDL 72 mg/dL (calc) [employer] shukri Jackson Comment: Reference range: <100 Desirable range <100 mg/dL for primary prevention; <70 mg/dL for patients with CHD or diabetic patients with > or = 2 CHD risk factors. LDL-C is now calculated using the Arley-Devi calculation, which is a validated novel method providing better accuracy than the Friedewald equation in the estimation of LDL-C. Arley COSTA et al. FRANKY. 2013;310(19): 6477-5136 (http://education.zeenworld/faq/WVY133) Chol/HDL ratio 3.3 <5.0 (calc) [employer] shukri Jackson Non-HDL, (LDL+VLDL) 101 <130 mg/dL (calc) [employer] shukri Jackson Comment: For patients with diabetes plus 1 major ASCVD risk factor, treating to a non-HDL-C goal of <100 mg/dL (LDL-C of <70 mg/dL) is considered a therapeutic option. Blood 12/04/2024 7:26 AM CDT 12/04/2024 7:27 AM CDT Narrative [facility] - 12/04/2024 9:47 PM CDT FASTING:YES FASTING: YES Inez VELASCO LAB BLOOD ORDERABLES Final Result ESTELLA Estella Jackson [address] [place] [address] * Comprehensive metabolic panel (12/04/2024 7:26 AM CDT) [facility] Glucose 87 65 - 99 mg/dL Estella [employer] Comment: Fasting reference interval BUN 11 7 - 25 mg/dL Estella [employer] [facility] Jackson Creatinine 0.67 0.50 - 1.03 mg/dL Estella [employer] Jackson eGFR 104 > OR = 60 mL/min/1.7 3m2 Estella [employer]erson Jackson BUN/creat ratio SEE NOTE: (calc) Estella [employer] Comment: Not Reported: BUN and Creatinine are within reference range. Sodium 137 135 - 146 mmol/L Estella [employer] Jackson Potassium, pl 4.5 3.5 - 5.3 mmol/L Estella [employer]Emerson Jackson Chloride 101 98 - 110 mmol/L Estella [employer] shukri Jackson CO2 27 20 - 32 mmol/L Estella [employer] shukri Jackson Calcium 9.3 8.6 - 10.4 mg/dL Estella [employer]Emerson Jackson Protein, sr 6.5 6.1 - 8.1 g/dL Estella [employer]Emerson Jackson Albumin 4.2 3.6 - 5.1 g/dL Estella [employer] Jackson GLOBULIN 2.3 1.9 - 3.7 g/dL (calc) Estella [facility]Emerson Jackson Alb/glob ratio 1.8 1.0 - 2.5 (calc) Estella [employer] shukri Jackson Bilirubin, total 0.6 0.2 - 1.2 mg/dL Estella [employer]Emerson Jackson Alk phos 77 37 - 153 U/L Estella [employer] Jackson AST 21 10 - 35 U/L [employer]Emerson Jackson ALT (SGPT) 21 6 - 29 U/L [employer] Jackson Blood 12/04/2024 7:26 AM CDT 12/04/2024 7:27 AM CDT Narrative [facility] - 12/04/2024 9:47 PM CDT FASTING:YES FASTING: YES Inez VELASCO LAB BLOOD ORDERABLES Final Result [facility] [address] [place] [address] * Albumin Creatinine Ratio, Urine (12/04/2024 7:24 [...] URINE ORDERABLES Final Result Performing Organization Address City/[facility]/ZIP Co de Phone Number [facility] [address] [place] [address] * Vitamin D 25 hydroxy (12/04/2024 7:24 [...] D, (D2,D3), LC/MS/MS is recommended: order code 26240 (patients >2yrs). See Note 1 Note 1 For additional information, please refer to http://education.HyTrust.UClass/faq/KSO406 (This link is being provided for informational/ educational purposes only.) Blood 12/04/2024 7:24 AM CDT 12/04/2024 7:25 AM CDT Narrative [facility] - 12/05/2024 2:57 AM CDT FASTING:YES FASTING: YES us Inez VELASCO LAB BLOOD ORDERABLES Final Result [facility] [address] [place] [address] * SCAN - LABS (11/02/2024) Provider Scanning Edited Result - Final * Electrocardiogram Report (11/01/2024 10:27 AM CDT) Abdullahi Vogel MD ECG ORDERABLES Final Result * SCAN - RADIOLOGY/IMAGING (10/31/2024) Anatomical Region Laterality Modality Other Provider Scanning Final Result * SCAN - LABS (10/31/2024) us Provider Scanning Final Result * Screening Mammogram Bilateral W Alberto (08/08/2024 2:15 PM GROUP SUPERVISOR YARD) Anatomical Region Laterality Modality Breast Bilateral Mammography Impressions 08/08/2024 2:15 PM GROUP SUPERVISOR YARD 1.No mammographic evidence of malignancy 2.Routine screening recommended for 1 year BI-RADS Category 1 Negative us Inez VELASCO IMG MAMMO PROCEDURES Final Result * (ABNORMAL) HM COLONOSCOPY (05/26/2021) Vishal Joyner MD HEALTH MAINTENANCE Edited Result - Final * ThinPrep Gynecologic Pap Test (Image-guided), Liquid-based Preparation (08/03/2017 12:16 PM GROUP SUPERVISOR YARD) CLINICAL INFORMATION [facility] Comment:Information not prov ided LMP: 07/19 [facility] PREV. PAP: [facility] Comment:MANY YEARS AGO PREV. BX: [facility] Comment:INFORMATION NOT PROV IDED SOURCE: [facility] Comment:Cervix, Endocervix STATEMENT OF ADEQUACY: [facility] Comment: Satisfactory for evaluation. Endocervical/transformation zone component present. INTERPRETATION/RESU LT: [facility] Comment:Negative for intraep ithelial lesion or malignancy. COMMENT: [facility] Comment: This Pap test has been evaluated with computer assisted technology. FUEL HOUSE ATTENDANT: [facility] HISTORICAL RESULTS Comment: YQ, CT(ASCP) CT screening location: [place] [address] [place] [address] 08/03/2017 12:1 6 PM GROUP SUPERVISOR YARD 08/09/2017 8:55 PM GROUP SUPERVISOR YARD Narrative [facility] HISTORICAL RESULTS - 08/09/2017 8:41 PM GROUP SUPERVISOR YARD 0 PERFORMING LAB: [place] [place] [address] [facility] [address] Mahi Mcmahon MD Historical Provider LAB PATHOLOGY ORDERABLES Final Result Performing Organization Address City/State/[facility] Co de Phone Number [facility] RESULTS from Last 3 Months or Most Recently Relevant to Health Maintenance Insurance IDPA [facility] MEDICARE ADVANTAGE IDPA [facility] MEDICARE ADVANTAGE MEDICARE ADVANTAGE [facility] MEDICARE Address: [facility] [address] [place] [address] Advance Directives For more information, please contact: [phone] * Full Code (Latest Code Status on File) Date Activated Date Inactivated Comments 05/29/2022 12:59 PM 05/30/2022 2:26 PM * Full Code Date Activated Date Inactivated Comments 05/28/2022 7:20 PM 05/29/2022 12:59 PM Care Teams Manager Core Relationship Specialty Start Date End Date Inez New PA [address] [place] [address] PCP - General 09/14/17 Candido Guerin MD [address] [place] [address] Consulting Physician Gastroenterology 05/04/23 Anthony Diez MD [address] [place] [address] Consulting Physician Rheumatology 09/18/24
--- OUTSIDE RECORDS SUMMARY | 2025-01-18 13:13 | XMS_ITS | Encounter Summary ---
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 Gender Identity Not on file Sexual Orientation Not on file Occupation Industry Job Start Date Job End Date Disabled Not on file Not on file Not on file documented as of this encounter Plan of Treatment Not on file documented as of this encounter Procedures Procedure Name Priority Date/Time Associated Diagnosis Comments SCAN - RADIOLOGY/IMAGING 10/31/2024 SCAN - LABS 10/31/2024 documented in this encounter Results * SCAN - LABS (10/31/2024) us Provider Scanning Final Result * SCAN - RADIOLOGY/IMAGING (10/31/2024) Anatomical Region Laterality Modality Other us Provider Scanning Final Result documented in this encounter Visit Diagnoses Not on filedocumented in this encounter Care Teams Project Financial Analyst Relationship Specialty Start Date End Date Inez New PA [address] [place] [address] PCP - General 09/14/17 Candido Guerin MD [address] [place] [address] Consulting Physician Gastroenterology 05/04/23 Anthony Diez MD [address] [place] [address] Consulting Physician Rheumatology 09/18/24 documented as of this encounter
--- OUTSIDE RECORDS SUMMARY | 2025-01-18 13:13 | XMS_ITS | Clinical Summary ---
Author Organization [facility] Address [address] [place] [address] Care Team Providers Care Finisher Hand Name Role Phone Inez New Primary Care Provider [phone] Allergies No known active allergies Medications rosuvastatin [...] 9:42 PM CDT Height 170.2 cm (5' 7) 09/27/2024 9:42 PM CDT Body Mass Index [...] Diagnosis Comments COLONOSCOPY Routine 05/26/2021 5:23 AM NURSING HOME SOCIAL WORKER from Last 3 Months or Most Recently Relevant to Health Maintenance Insurance MEDICAID [facility] Care Teams Finisher Hand Relationship Specialty Start Date End Date Inez New PA [address] [place] [address] PCP - General PHYSICIAN NEON SIGN MECHANIC 05/26/21
--- OUTSIDE RECORDS SUMMARY | 2025-01-18 13:13 | XMS_ITS | Encounter Summary ---
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
--- OUTSIDE RECORDS SUMMARY | 2025-01-18 13:13 | XMS_ITS | Encounter Summary ---
Author Organization [facility] Facility Care Team Providers Care Commissioner Conservation Of Resources Name Role Phone Inez New Primary Care Provider [phone] Candido Guerin MD Unavailable [phone] Anthony Diez MD Unavailable [phone] Encounter Details Date Type Department Care Team (Latest Contact Info) Description 10/01/2016 Orders Only [facility] ProviderVishal MD [address] [place] [address] Social History Tobacco Use Types Packs/Day Years Used Date Smoking Tobacco: Never Assessed Comments Unknown Sex and Gender Information Value Date Recorded Sex Assigned at Not on file 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
--- OUTSIDE RECORDS SUMMARY | 2025-01-18 13:13 | XMS_ITS | Encounter Summary ---
Author Organization 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
== END 2025-01-18 13:09 | disposition home or self-care (01) ==
PROVIDERS: PCP Physician Assistant; Visit Provider Surgery
DX: K44.9 Diaphragmatic hernia without obstruction or gangrene (principal)
CPT/HCPCS: 36415; 86850; 86900; 86901

== ENCOUNTER 2025-01-23 00:24 | Day surgery (SDC) | payer MEDICARE, MEDICAID, SELFPAY ==
[2025-01-17 12:50] VITALS: BMI 33.9
--- NOTE | 2025-01-17 12:52 | PC.NURSE ---
Addendum entered by Jose Ureña RN 01/18/25 12:40: May only have clear liquids for supper evening before surgery, no solid food. Original Note: Report to the Outpatient Waiting Room, entrance under the green pavilion located off [facility], at time _0600_ on date _18-30-3722_. Planned Procedure Time: _0730_.? Time changes happen often and if your time is changed the preop area will call you the afternoon before. - You and your visitor will be asked to self-screen and do not enter if you have any COVID symptoms. Please call surgeon if you need to reschedule. - A mask is optional within the hospital at this time. Patients may have clear liquids (water, carbonated beverages, clear teas, apple juice) until 3 hours prior to surgery with a maximum of 20 ounces. - No food from midnight until time of surgery and no smoking, or chewing tobacco (or any form of nicotine). No chewing gum, candy or mints. Take only the following medications with a SIP of water on the morning of surgery: __Lamotrigine, Escitalopram, Propanolol, Breo Ellipta and if needed Albuterol. DO NOT STOP ANY OF YOUR OTHER PRESCRIPTION MEDICATIONS PRIOR TO SURGERY EXCEPT THE FOLLOWING Hold all vitamins and supplements for 3 days per anesthesiologist. Medications to discontinue per physician Date to take last dose Please no make-up, nail estonian, hairspray, perfume, deodorant, or body powder the day of surgery.? No jewelry (including any body piercings) or valuables the day of surgery, leave them at home.? Please take a shower or bath the night before, or the morning of, surgery with an antibacterial soap.? Wear comfortable, loose fitting clothing.? - Jewelry must be removed prior to entering the operating room.? Rings and piercings that are not removed may be cut off. - The hospital will not accept responsibility for valuables.? - Please leave all valuables, including medications, at home the day of surgery. If you are going home after surgery, a licensed school bus driver/custodian must drive you home.? - NO public transportation without another adult if you receive anesthesia. - We recommend that an adult stay with you for 24 hours following discharge. - We also recommend that you do not drive, make important decision, drink alcoholic beverages, or take any drugs that were not prescribed by your health care provider for at least 24 hours after your discharge time. Follow any additional instructions given to you from your surgeon. Telephone instructions given to __Lori___and asked if any additional questions and then verbalized understanding. Patient advised to call surgeon office or pre surgery nurse liaison [phone] if any additional questions.
[2025-01-23] VITALS (15 sets, daily range): BP systolic 116–140; BP diastolic 59–88; PULSE 51–91; RESP 14–20; TEMP 36.3–37.2; O2SAT 93–99
--- OUTSIDE RECORDS SUMMARY | 2025-01-23 00:27 | XMS_ITS | Clinical Summary ---
Author Organization [facility] Address [address] [place] [address] Care Team Providers Care Otr Owner Operator Truck Driver Name Role Phone Inez New Primary Care Provider [phone] Allergies No known active allergies Medications rosuvastatin [...] Diagnosis Comments COLONOSCOPY Routine 05/26/2021 5:23 AM ACADEMIC SERVICES PROFESSIONAL from Last 3 Months or Most Recently Relevant to Health Maintenance Insurance MEDICAID [facility] Care Teams Otr Owner Operator Truck Driver Relationship Specialty Start Date End Date Inez New PA [address] [place] [address] PCP - General PHYSICIAN CERTIFIED NURSE 05/26/21
--- OUTSIDE RECORDS SUMMARY | 2025-01-23 00:27 | XMS_ITS | Encounter Summary ---
Author Organization [facility] Facility Care Team Providers Care Pressure Tester Operator Name Role Phone Inez New Primary Care Provider [phone] Candido Guerin MD Unavailable [phone] Anthony Diez MD Unavailable [phone] Encounter Details Date Type Department Care Team (Latest Contact Info) Description 09/26/2015 Orders Only [facility] ProviderVishal MD [address] [place] [address] Social History Tobacco Use Types Packs/Day Years Used Date Smoking Tobacco: Never Assessed Comments Unknown Sex and Gender Information Value Date Recorded Sex Assigned at Not on file 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
--- OUTSIDE RECORDS SUMMARY | 2025-01-23 00:27 | XMS_ITS | Clinical Summary ---
Author Organization [facility] [address] [facility] Address [address] [place] [address] Care Team Providers Care Manager Unit Name Role Phone Inez New Primary Care Provider [phone] Candido Guerin MD Unavailable [phone] Anthony Diez MD Unavailable [phone] Allergies No known active allergies Medications magnesium [...] 08/26/2024 Assessment & Plan (08/26/2024 4:47 PM PACKAGE DRIER): This is a significant, separately identifiable problem [...] 08/15/2024 Assessment & Plan (08/26/2024 4:38 PM PACKAGE DRIER): Blood pressure still isn't perfectly controlled. Continue [...] provided. Assessment & Plan (08/15/2024 10:04 AM PACKAGE DRIER): Discussed the patient's BMI. The BMI is above average. BMI management plan is completed. BMI Follow-up includes: nutrition counseling, exercise counseling and education provided. Assessment & Plan (08/01/2024 11:21 AM PACKAGE DRIER): Discussed the patient's BMI. The BMI is above average. BMI management plan is completed. BMI Follow-up includes: nutrition counseling, exercise counseling and education provided. Assessment & Plan (06/11/2024 12:16 PM PACKAGE DRIER): Discussed the patient's BMI. The BMI is above average. BMI management plan is completed. BMI Follow-up includes: nutrition counseling, exercise counseling and education provided. Elevated TSH 03/17/2024 Assessment & Plan (03/18/2024 8:08 PM CDT): Check labs Abnormal thyroid screen (blood) 03/17/2024 Type 2 diabetes mellitus wit hout complication, without long-term current use of insulin 03/17/2024 Assessment & Plan (08/26/2024 4:37 PM PACKAGE DRIER): Stressed importance of continued A1c control to minimize the nursing home effects of diabetes. Bring accuchecks to office when instructed to do so. Check A1c about every 3-6 months. Take medication as prescribed. Get annual eye exam. Encouraged GLENDY/Statin if able to tolerate. Encouraged weight control and encouraged diabetic diet and exercise. Continue with metformin 500 el A1c is tightly controlled at 5.8 Assessment & Plan (08/13/2024 1:18 PM PACKAGE DRIER): Stressed importance of continued A1c control to minimize the nursing home effects of diabetes. Bring accuchecks to office when instructed to do so. Check A1c about every 3-6 months. Take medication as prescribed. Get annual eye exam. Encouraged GLENDY/Statin if able to tolerate. Encouraged weight control and encouraged diabetic diet and exercise. A1c is nicely controlled at 5.9. Continue metformin 500 mg Assessment & Plan (06/11/2024 12:15 PM PACKAGE DRIER): Stressed importance of continued A1c control to minimize the nursing home effects of diabetes. Bring accuchecks to office [...] Discussed with patient at length diabetes, pathogenesis, sap project manager sequela, end organ damage, diet/exercise/weight loss, and [...] feet on a regular basis to avoid sap project manager problems. Offered referral to dental cream maker. Start metformin 500 mg 1 tablet daily [...] referral Assessment & Plan (09/07/2023 10:34 PM PACKAGE DRIER): Ears are clear. Suspect eustachian tube dysfunction. Recommend Flonase, mucinex and antihistamine. If symptoms persist, may need ENT referral. Morbid obesity 07/22/2022 Assessment & Plan (12/12/2024 8:42 AM CDT): Discussed the patient's BMI. The BMI is above average. BMI management plan is completed. BMI Follow-up includes: nutrition counseling, exercise counseling and education provided. Assessment & Plan (08/26/2024 4:37 PM PACKAGE DRIER): Discussed the patient's BMI. The BMI is above average. BMI management plan is completed. BMI Follow-up includes: nutrition counseling, exercise counseling and education provided. Assessment & Plan (08/01/2024 11:22 AM PACKAGE DRIER): Discussed the patient's BMI. The BMI is above average. BMI management plan is completed. BMI Follow-up includes: nutrition counseling, exercise counseling and education provided. Assessment & Plan (06/11/2024 12:15 PM PACKAGE DRIER): Discussed the patient's BMI. The BMI is above average. BMI management plan is completed. BMI Follow-up includes: nutrition counseling, exercise counseling and education provided. Assessment & Plan (03/18/2024 8:06 PM CDT): Discussed the patient's BMI. The BMI is above average. BMI management plan is completed. BMI Follow-up includes: nutrition counseling, exercise counseling and education provided. Assessment & Plan (09/07/2023 10:31 PM PACKAGE DRIER): Discussed the patient's BMI. The BMI is above average. BMI management plan is completed. BMI Follow-up includes: nutrition counseling, exercise counseling and education provided. Patient has an obesity-related condition (not limited to: hypertension, obstructive sleep apnea, osteoarthritis, hyperlipidemia, diabetes, etc.). Therefore, morbid obesity may be documented for patients with a BMI between 35.00-39.99. Assessment & Plan (05/21/2023 3:46 PM PACKAGE DRIER): Discussed the patient's BMI. The BMI is above average. BMI management plan is completed. BMI Follow-up includes: nutrition counseling, exercise counseling and education provided. Patient has an obesity-related condition (not limited to: hypertension, obstructive sleep apnea, osteoarthritis, hyperlipidemia, diabetes, etc.). Therefore, morbid obesity may be documented for patients with a BMI between 35.00-39.99. Assessment & Plan (07/22/2022 2:01 PM PACKAGE DRIER): Discussed the patient's BMI. The BMI is above average. BMI management plan is completed. BMI Follow-up includes: nutrition counseling, exercise counseling and education provided. Patient has an obesity-related condition (not limited to: hypertension, obstructive sleep apnea, osteoarthritis, hyperlipidemia, diabetes, etc.). Therefore, morbid obesity may be documented for patients with a BMI between 35.00-39.99. Symptomatic anemia 05/28/2022 Assessment & Plan (09/07/2023 10:29 PM PACKAGE DRIER): Known anemia. Has had transfusion. Continue to [...] Guajardo Assessment & Plan (06/14/2020 5:55 PM PACKAGE DRIER): Refer back to Ortho. Offered PT. She [...] 09/11/2019 Assessment & Plan (06/11/2024 12:15 PM PACKAGE DRIER): Mammogram order provided Assessment & Plan (08/23/2021 9:43 PM PACKAGE DRIER): Mammogram order provided Assessment & Plan (09/26/2020 8:30 PM CDT): Mammogram order provided Assessment & Plan (09/11/2019 9:21 AM CDT): Mammogram order provided Sciatica of right side 06/17/2019 Assessment & Plan (06/17/2019 6:14 PM PACKAGE DRIER): Voltaren gel Exercise/Start PT Followup if sxs worsen or don't improved. Vertigo 02/28/2019 Assessment & Plan (03/18/2024 8:06 PM CDT): Uses meclizine p.r.n. with good results Assessment & Plan (09/26/2020 8:29 PM CDT): antivert prn Assessment & Plan (03/15/2020 11:09 AM CDT): Persitent vertigo. 02/2020 CT head was essentially negative. She has finally agreed to vestibular therapy. Will still change neurology referral from [place] to [facility] as patient able to arranage transportation easier. [...] 09/2018 Assessment & Plan (08/26/2024 4:36 PM PACKAGE DRIER): Encouraged patient to follow low fat/low chol diet like the Mediterranean diet. Increase good fats in the diet. Increase exercise. Monitor labs as needed. Continue Crestor Assessment & Plan (08/13/2024 1:17 PM PACKAGE DRIER): Encouraged patient to follow low fat/low chol diet like the Mediterranean diet. Increase good fats in the diet. Increase exercise. Monitor labs as needed. Continue Crestor Assessment & Plan (06/11/2024 11:51 AM PACKAGE DRIER): Stressed importance of continued A1c control to minimize the sap project manager effects of diabetes. Bring accuchecks to office [...] of continued A1c control to minimize the sap project manager effects of diabetes. Bring accuchecks to office [...] Crestor Assessment & Plan (09/07/2023 10:30 PM PACKAGE DRIER): Encouraged patient to follow low fat/low chol diet like the Mediterranean diet. Increase good fats in the diet. Increase exercise. Monitor labs as needed. Continue with Crestor Assessment & Plan (05/21/2023 3:44 PM PACKAGE DRIER): Encouraged patient to follow low fat/low chol diet like the Mediterranean diet. Increase good fats in the diet. Increase exercise. Monitor labs as needed. Continue Crestor Assessment & Plan (07/22/2022 1:49 PM PACKAGE DRIER): Encouraged patient to follow low fat/low chol diet like the Mediterranean diet. Increase good fats in the diet. Increase exercise. Monitor labs as needed. Continue Crestor Assessment & Plan (08/23/2021 9:42 PM PACKAGE DRIER): Encouraged patient to follow fat/low chol diet [...] 12/04/2018 Assessment & Plan (06/11/2024 12:15 PM PACKAGE DRIER): Encouraged smoking cessation. Discussed 3 minutes. Reviewed options for assistance with cessation. Reviewed nursing home sequela associated with smoking. Pt declines assistance at this time but may contact the office at anytime for further help as they desire. Assessment & Plan (03/18/2024 8:05 PM CDT): Encouraged smoking cessation. Discussed 3 minutes. Reviewed options for assistance with cessation. Reviewed nursing home sequela associated with smoking. Pt declines assistance at this time but may contact the office at anytime for further help as they desire. Declines low-dose CT at this point Assessment & Plan (09/07/2023 10:30 PM PACKAGE DRIER): Encouraged smoking cessation. Discussed 3 minutes. Reviewed options for assistance with cessation. Reviewed nursing home sequela associated with smoking. Pt declines assistance at this time but may contact the office at anytime for further help as they desire. Assessment & Plan (07/22/2022 1:47 PM PACKAGE DRIER): Encouraged smoking cessation. Discussed 3 minutes. Reviewed options for assistance with cessation. Reviewed sap project manager sequela associated with smoking. Pt declines assistance at this time but may contact the office at anytime for further help as they desire. Assessment & Plan (08/23/2021 9:42 PM PACKAGE DRIER): Encouraged smoking cessation. Discussed 3 minutes. Reviewed options for assistance with cessation. Reviewed sap project manager sequela associated with smoking. Pt declines assistance at this time but may contact the office at anytime for further help as they desire. Assessment & Plan (04/08/2021 2:56 PM CDT): Encouraged smoking cessation. Discussed 3 minutes. Reviewed options for assistance with cessation. Reviewed nursing home sequela associated with smoking. Pt declines assistance at this time but may contact the office at anytime for further help as they desire. Assessment & Plan (01/18/2021 11:39 PM CDT): Encouraged smoking cessation. Discussed 3 minutes. Reviewed options for assistance with cessation. Reviewed nursing home sequela associated with smoking. Pt declines assistance at this time but may contact the office at anytime for further help as they desire. Assessment & Plan (09/26/2020 8:30 PM CDT): Encouraged smoking cessation. Discussed 3 minutes. Reviewed options for assistance with cessation. Reviewed nursing home sequela associated with smoking. Pt declines assistance at this time but may contact the office at anytime for further help as they desire. Assessment & Plan (06/14/2020 5:55 PM PACKAGE DRIER): Encouraged smoking cessation. Discussed 3 minutes. Reviewed options for assistance with cessation. Reviewed sap project manager sequela associated with smoking. Pt declines assistance at this time but may contact the office at anytime for further help as they desire. Assessment & Plan (03/15/2020 11:10 AM CDT): Encouraged smoking cessation. Discussed 3 minutes. Reviewed options for assistance with cessation. Reviewed nursing home sequela associated with smoking. Pt declines assistance [...] Reviewed options for assistance with cessation. Reviewed sap project manager sequela associated with smoking. Pt declines assistance at this time but may contact the office at anytime for further help as they desire. Assessment & Plan (06/17/2019 6:16 PM PACKAGE DRIER): Encouraged smoking cessation. Discussed 3 minutes. Reviewed options for assistance with cessation. Reviewed nursing home sequela associated with smoking. Pt declines assistance at this time but may contact the office at anytime for further help as they desire. Assessment & Plan (01/30/2019 1:03 PM CDT): Encouraged smoking cessation. Discussed approx 3 minutes. Gastroesophageal reflux disease without esophagi tis 12/04/2018 Assessment & Plan (06/11/2024 12:15 PM PACKAGE DRIER): Continue PPI Assessment & Plan (03/18/2024 8:05 PM CDT): Patient has been following closely with Dr. Guerin GI. She transferred and saw Dr. Nath and had an EGD done. States at this point her symptoms are pretty stable so will just continue to monitor continuing the Bentyl as needed and continue PPI p.r.n. Assessment & Plan (05/21/2023 3:44 PM PACKAGE DRIER): Continue PPI p.r.n.. Continue per GI Assessment & Plan (07/22/2022 1:47 PM PACKAGE DRIER): Continue per Dr. Guerin. She is currentl on omeprazole sucralfate. Will await his recommendations Assessment & Plan (08/23/2021 9:42 PM PACKAGE DRIER): Continue PPI. She is unsure if the Dexilant will continue to be covered by her insurance so she will contact us with the letter she has at home with her options. Assessment & Plan (04/08/2021 2:55 PM CDT): Increased reflux symptoms. She is currently on Dexilant. Encouraged to continue with the same regimen. Will refer her to GI Dr. Zamora at [facility] she is due for colonoscopy and may [...] 12/04/2018 Assessment & Plan (06/11/2024 12:15 PM PACKAGE DRIER): Supplement Assessment & Plan (03/18/2024 8:06 PM CDT): Supplement Assessment & Plan (09/07/2023 10:30 PM PACKAGE DRIER): Supplement Assessment & Plan (05/21/2023 3:44 PM PACKAGE DRIER): Supplement Assessment & Plan (07/22/2022 1:47 PM PACKAGE DRIER): Supplement Assessment & Plan (09/26/2020 8:14 PM CDT): supplement Assessment & Plan (09/11/2019 9:18 AM CDT): supplement Assessment & Plan (01/30/2019 1:02 PM CDT): supplement COPD (chronic obstructive pulmonary disease) 09/2018 Assessment & Plan (08/26/2024 4:37 PM PACKAGE DRIER): COPD symptoms have been stable. Continue Breo and albuterol p.r.n. Assessment & Plan (08/13/2024 1:18 PM PACKAGE DRIER): Continue with albuterol and Breo as breathing is stable Assessment & Plan (06/11/2024 12:15 PM PACKAGE DRIER): Encouraged complete smoking cessation. Continue Breo and albuterol as needed Assessment & Plan (03/18/2024 8:06 PM CDT): Encouraged complete smoking cessation. Continue albuterol nebs and Breo as needed. Assessment & Plan (09/07/2023 10:30 PM PACKAGE DRIER): Patient with COPD. Continue with albuterol and Breo. Assessment & Plan (05/21/2023 3:44 PM PACKAGE DRIER): Continue Symbicort and albuterol p.r.n. continue Flonase Assessment & Plan (07/22/2022 1:47 PM PACKAGE DRIER): Stressed smoking cessation. Continue Symbicort albuterol inhaler nebulizer p.r.n. Assessment & Plan (07/27/2021 7:15 AM PACKAGE DRIER): Continues Symbicort/prn albuterol Still requires Neb Albuterol [...] basis as instructed. New prescription sent to [facility]. [id number] completed today Assessment & Plan (09/26/2020 8:14 PM CDT): Continue Symbicort and Albuterol prn Assessment & Plan (03/15/2020 11:10 AM CDT): Continue current regimen. Stop smoking Assessment & Plan (09/11/2019 9:18 AM CDT): STOP smoking. Continue with current regimen inhalers Albuterol/Symbicort Assessment & Plan (01/30/2019 12:54 PM CDT): Continue with Symbicort SHERRY (obstructive sleep apnea) 12/02/2018 Assessment & Plan (08/26/2024 4:36 PM PACKAGE DRIER): Patient has been diagnosed with SHERRY. Awaiting titration study for treatment plan. Continue per Dr. Manuel Assessment & Plan (06/11/2024 11:43 AM PACKAGE DRIER): Patient has established with Dr. Manuel. She [...] placed Assessment & Plan (09/07/2023 10:30 PM PACKAGE DRIER): Continue with CPAP Assessment & Plan (07/22/2022 1:36 PM PACKAGE DRIER): Continue CPAP Assessment & Plan (04/08/2021 2:56 [...] 12/02/2018 Assessment & Plan (08/13/2024 1:17 PM PACKAGE DRIER): Continue to follow with Shakira in [place] Dr. Etienne's office. She stopped her clonazepam [...] acutely. Assessment & Plan (06/11/2024 11:43 AM PACKAGE DRIER): Continue per psychiatrist. She continues to take out her medications and they are updated on her chart Assessment & Plan (03/18/2024 8:04 PM CDT): Continue following with her psychiatrist for management of her mental health concerns. Assessment & Plan (09/07/2023 10:30 PM PACKAGE DRIER): Continue per Psychiatry. Current medications include Klonopin Ingrezza Lexapro Vraylar 6 mg Lamictal and lithium Assessment & Plan (05/21/2023 3:45 PM PACKAGE DRIER): Continue per psychiatrist Assessment & Plan (07/22/2022 1:45 PM PACKAGE DRIER): Continue per psychiatrist. Patient states she is on clonazepam, latuda, Hydroxyzine, Cymbalta and Lexapro Assessment & Plan (08/23/2021 9:42 PM PACKAGE DRIER): Per psychiatrist Assessment & Plan (04/08/2021 2:58 PM CDT): Continue per Psychiatry Assessment & Plan (06/14/2020 5:56 PM PACKAGE DRIER): Unsure of exact diagnosis. Medication/treatment plan is [...] 025 Assessment & Plan (08/26/2024 4:46 PM PACKAGE DRIER): Encouraged healthy lifestyle, good nutrition and exercise. Encouraged Calcium and Vitamin D and weight bearing exercise for bone health. Reviewed immunizations Reviewed age appropirate screenings. Elevated blood pressure reading 08/13/2024 08/26/2024 Assessment & Plan (08/13/2024 1:19 PM PACKAGE DRIER): Advised patient it is difficult to know if she has true hypertension versus anxiety/panic. Recommend doing home readings and calling us in a couple of weeks with those readings. If she can not do them at home she can always come in but I know transportation is sometimes difficult. Need for influenza vaccination 06/11/2024 08/26/2024 Assessment & Plan (06/11/2024 12:16 PM PACKAGE DRIER): Flu vaccine updated in the office today Annual physical exam 06/11/2024 025 Assessment & Plan (06/11/2024 12:16 PM PACKAGE DRIER): Encouraged healthy lifestyle, good nutrition and exercise. [...] 03/17/2024 Assessment & Plan (09/07/2023 10:31 PM PACKAGE DRIER): Encouraged healthy lifestyle, good nutrition and exercise. Encouraged Calcium and Vitamin D and weight bearing exercise for bone health. Reviewed immunizations. Reviewed age appropirate screenings. Medicare Wellness Documentation is completed within the chart BMI 38.0-38.9,adult 05/21/2023 09/07/19 24 Assessment & Plan (05/21/2023 3:46 PM PACKAGE DRIER): Discussed the patient's BMI. The BMI is above average. BMI management plan is completed. BMI Follow-up includes: nutrition counseling, exercise counseling and education provided. BMI 39.0-39.9,adult 07/22/2022 05/04/20 23 Assessment & Plan (07/22/2022 1:48 PM PACKAGE DRIER): Discussed the patient's BMI. The BMI is above average. BMI management plan is completed. BMI Follow-up includes: nutrition counseling, exercise counseling and education provided. Need for vaccination 07/22/2022 024 Assessment & Plan (05/21/2023 3:46 PM PACKAGE DRIER): Flu vaccine updated in the office Assessment & Plan (07/22/2022 1:48 PM PACKAGE DRIER): Flu vaccine at the office today Encounter for screening mamm ogram for malignant neoplasm of breast 07/22/2022 09/07/2023 Assessment & Plan (07/22/2022 1:48 PM PACKAGE DRIER): Mammogram order provided Bloody diarrhea 04/08/2021 09/07/2023 [...] 09/07/2023 Assessment & Plan (07/22/2022 1:48 PM PACKAGE DRIER): Encouraged healthy lifestyle, good nutrition and exercise. [...] 2016. [facility] 01/14/20212022 Assessment & Plan (08/23/2021 9:43 PM PACKAGE DRIER): Obesity is unchanged. Discussed the patient's BMI. [...] 23 Assessment & Plan (07/27/2021 7:21 AM PACKAGE DRIER): Obesity is unchanged. Discussed the patient's BMI. [...] onset of sxs. Check COVID test thru [facility] collection site in [place]. Treat sxs with Tylenol, Cough/cold medication otc [...] water often. If needed, use a hand volunteer services coordinator that contains at least 60% alcohol. Clean [...] 04/08/2021 Assessment & Plan (07/22/2020 11:47 AM PACKAGE DRIER): Declines covid 19 testing at this time. Will start on ceftin 500mg bid x 7 days. She was advised to report to office if having otorrhea or worsening of symptoms. Need for immunization against influenza 06/14/2020 02/17/2021 Assessment & Plan (06/14/2020 5:57 PM PACKAGE DRIER): Updated in office today BMI 37.0-37.9, adult 06/10/2020 024 Assessment & Plan (09/07/2023 10:31 PM PACKAGE DRIER): Discussed the patient's BMI. The BMI is above average. BMI management plan is completed. BMI Follow-up includes: nutrition counseling, exercise counseling and education provided. Assessment & Plan (06/10/2020 1:35 PM PACKAGE DRIER): Obesity is unchanged. Discussed the patient's BMI. The BMI is above average. BMI management plan is completed. BMI Follow-up includes: nutrition counseling, exercise counseling and education provided.Obesity is unchanged. Discussed the patient's BMI. Positive depression screening 06/10/2020 12/23/2024 Assessment & Plan (07/22/2020 11:47 AM PACKAGE DRIER): Continue medication same Assessment & Plan (06/14/2020 5:56 PM PACKAGE DRIER): Pt denies any suicidal or homicidal thoughts. [...] 03/17/2024 Assessment & Plan (09/07/2023 10:30 PM PACKAGE DRIER): Probably multifactorial. Check labs and followup to re-evaluate Assessment & Plan (09/11/2019 9:21 AM CDT): Probably multifactorial. Check labs and followup to re-evaluate Hyperglycemia 09/11/2019 03/06/2024 Assessment & Plan (09/07/2023 10:30 PM PACKAGE DRIER): Pre-diabetes/hyperglycemia is a precursor to Dm. Stressed [...] Description 12/12/2024 8:30 AM CDT Office Visit [facility] [address] [place] [address] [address] [place] [address] Inez New [place] Medicare annual wellness visit, subsequent (Primary Dx); Primary osteoarthritis of right knee; Hiatal hernia; Rosacea; Type 2 diabetes mellitus without complication, without long-term current use of insulin (HCC); Type 2 diabetes mellitus with hyperlipidemia (HCC); Hypertension associated with diabetes (HCC); Mental health problem; Cigarette smoker; Immunity status testing; Morbid obesity (HCC); BMI 40.0-44.9, adult (HCC) 12/05/2024 Results Follow-Up [facility] [address] [place] [address] [address] [place] [address] Inez New [place] Comprehensive metabolic panel, CBC with auto differential, Hemoglobin A1c, Additional followed-up results: 4 11/13/2024 Orders Only [facility] [place] [address] [place] [address] [address] [place] [phone] Inez New [place] Hypertension associated with diabetes (HCC) (Primary Dx); Type 2 diabetes mellitus with hyperlipidemia (HCC); Vitamin D deficiency; Annual physical exam; Dizziness; Elevated TSH; Other fatigue; Hyperthyroidism 11/02/2024 Orders Only [facility] Health Information Management [address] [place], [place] [id number] Scanning, Provider 11/01/2024 10:00 AM CDT Office Visit [facility] Medical [facility] [address] [facility] [address], [place] [phone] Abdullahi Vogel MD Abnormal ECG (Primary Dx) 10/31/2024 Orders Only [facility] Health Information Management [address] [place] [address] Scanning, Provider 10/30/2024 Telephone [facility] [address] [facility] [address] [place] [address] Inez New [place] from Last [...] on file Legal Sex Female 4:54 AM PACKAGE DRIER Gender Identity Not on file Sexual Orientation [...] Read Routine (OP Routine) 08/08/2024 2:15 PM PACKAGE DRIER Breast cancer screening by mammogram HM COLONOSCOPY Routine 05/26/2021 THINPREP AQUACULTURIST PAP (IMAGE GUIDED) LIQUID-BASED PREP Routine 08/03/2017 12:16 PM PACKAGE DRIER from Last 3 Months or Most Recently [...] BLOOD ORDERABLES Final Result Performing Organization Address [facility] de Phone Number [facility] [address] [place] [address] * TSH (12/04/2024 7:26 AM CDT) TSH 2.63 mIU/L [facility] Comment: Reference Range > or = 20 Years 0.40-4.50 Ranges First trimester 0.26-2.66 Second trimester 0.55-2.73 Third trimester 0.43-2.91 Blood 12/04/2024 7:26 AM CDT 12/04/2024 7:27 AM CDT Narrative [facility] - 12/04/2024 9:47 PM CDT FASTING:YES FASTING: YES Inez VELASCO LAB BLOOD ORDERABLES Final Result Performing Organization Address [facility] Co de Phone Number [facility] [address] [place] [address] * Hemoglobin A1c (12/04/2024 7:26 AM CDT) Hgb A1C 5.3 <5.7 % of total Hgb [facility] Comment: For the purpose of screening for the presence of diabetes: <5.7% Consistent with the absence of diabetes 5.7-6.4% Consistent with increased risk for diabetes (prediabetes) > or =6.5% Consistent with diabetes This assay result is consistent with a decreased risk of diabetes. Currently, no consensus exists regarding use of hemoglobin A1c for diagnosis of diabetes in children. According to [place] Diabetes Association (ADA) guidelines, hemoglobin A1c <7.0% represents optimal control in non- diabetic patients. Different metrics may apply to specific patient populations. Standards of Medical Care in Diabetes(ADA). Blood 12/04/2024 7:26 AM CDT 12/04/2024 7:27 AM CDT Narrative [facility] - 12/04/2024 9:47 PM CDT FASTING:YES FASTING: YES Inez VELASCO LAB BLOOD ORDERABLES Final Result [facility] [address] [place] [address] * (ABNORMAL) Lipid panel (12/04/2024 7:26 AM CDT) [facility] Cholesterol 145 <200 mg/dL [facility] HDL 44(L) > OR = 50 mg/dL [facility] Triglycerides 195(H) <150 mg/dL IM5 [facility] LDL 72 mg/dL (calc) [email or web address] Comment: Reference range: <100 Desirable range <100 mg/dL for primary prevention; <70 mg/dL for patients with CHD or diabetic patients with > or = 2 CHD risk factors. LDL-C is now calculated using the Arley-Marito calculation, which is a validated novel method providing better accuracy than the Friedewald equation in the estimation of LDL-C. Arley SS et al. FRANKY. 2013;310(19): 4188-5076 (http://education.Independent IP.[employer]/faq/VZD500) Chol/HDL ratio 3.3 <5.0 (calc) [facility] Non-HDL, (LDL+VLDL) 101 <130 mg/dL (calc) [facility] Comment: For patients with diabetes plus 1 major ASCVD risk factor, treating to a non-HDL-C goal of <100 mg/dL (LDL-C of <70 mg/dL) is considered a therapeutic option. Blood 12/04/2024 7:26 AM CDT 12/04/2024 7:27 AM CDT Narrative [facility] - 12/04/2024 9:47 PM CDT FASTING:YES FASTING: YES Inez VELASCO LAB BLOOD ORDERABLES Final Result [facility] [address] [place] [address] * Comprehensive metabolic panel (12/04/2024 7:26 AM CDT) Pathologist [facility] Glucose 87 65 - 99 mg/dL [facility] Manuel Comment: Fasting reference interval BUN 11 7 - 25 mg/dL IM[facility] Creatinine 0.67 0.50 - 1.03 mg/dL IM5[facility] eGFR 104 > OR = 60 mL/min/1.7 3m2 IM5[facility] BUN/creat ratio SEE NOTE: 6 - 22 (calc) IM5[facility] Comment: Not Reported: BUN and Creatinine are within reference range. Sodium 137 135 - 146 mmol/L [facility] Potassium, pl 4.5 3.5 - 5.3 mmol/L IM5[facility] Chloride 101 98 - 110 mmol/L IM5[facility] CO2 27 20 - 32 mmol/L IM5[facility] Calcium 9.3 8.6 - 10.4 mg/dL IM5[facility] Protein, sr 6.5 6.1 - 8.1 g/dL IM5[facility] Albumin 4.2 3.6 - 5.1 g/dL IM5[facility] GLOBULIN 2.3 1.9 - 3.7 g/dL (calc) [facility] Alb/glob ratio 1.8 1.0 - 2.5 (calc) IM5[facility] Bilirubin, total 0.6 0.2 - 1.2 mg/dL IM5[facility] Alk phos 77 37 - 153 U/L IM5[facility] AST 21 10 - 35 U/L [facility] ALT (SGPT) 21 6 - 29 U/L [facility] Blood 12/04/2024 7:26 AM CDT 12/04/2024 7:27 AM CDT Narrative [facility] - 12/04/2024 9:47 PM CDT FASTING:YES FASTING: YES Inez VELASCO LAB BLOOD ORDERABLES Final Result [facility] [address] [place] [address] * Albumin Creatinine Ratio, Urine (12/04/2024 7:24 [...] VELASCO LAB URINE ORDERABLES Final Result [facility] [address] [address] * Vitamin D 25 hydroxy (12/04/2024 7:24 [...] D, (D2,D3), LC/MS/MS is recommended: order code 23833 (patients >2yrs). See Note 1 Note 1 For additional information, please refer to http://education.[employer]/faq/ENN861 (This link is being provided for informational/ educational purposes only.) Blood 12/04/2024 7:24 AM CDT 12/04/2024 7:25 AM CDT Narrative [facility] - 12/05/2024 2:57 AM CDT FASTING:YES FASTING: YES Inez VELASCO LAB BLOOD ORDERABLES Final Result Performing Organization Address City/State/[facility] Co de Phone Number [facility] [address] [place] [address] * SCAN - LABS (11/02/2024) Provider Scanning Edited Result - Final * Electrocardiogram Report (11/01/2024 10:27 AM CDT) Abdullhai Vogel MD ECG ORDERABLES Final Result * SCAN - RADIOLOGY/IMAGING (10/31/2024) Anatomical Region Laterality Modality Other us Provider Scanning Final Result * SCAN - LABS (10/31/2024) us Provider Scanning Final Result * Screening Mammogram Bilateral W Alberto (08/08/2024 2:15 PM PACKAGE DRIER) Anatomical Region Laterality Modality Breast Bilateral Mammography Impressions 08/08/2024 2:15 PM PACKAGE DRIER 1.No mammographic evidence of malignancy 2.Routine screening recommended for 1 year BI-RADS Category 1 Negative us Inez VELASCO IMG MAMMO PROCEDURES Final Result * (ABNORMAL) HM COLONOSCOPY (05/26/2021) Historical Provider HEALTH MAINTENANCE Edited Result - Final * ThinPrep Gynecologic Pap Test (Image-guided), Liquid-based Preparation (08/03/2017 12:16 PM PACKAGE DRIER) CLINICAL INFORMATION [facility] HISTORICAL RESULTS Comment:Information not prov ided LMP: 07/19 [facility] HISTORICAL RESULTS PREV. PAP: [facility] HISTORICAL RESULTS Comment:MANY YEARS AGO PREV. BX: [facility] HISTORICAL RESULTS Comment:INFORMATION NOT PROV IDED SOURCE: [facility] HISTORICAL RESULTS Comment:Cervix, Endocervix STATEMENT OF ADEQUACY: [facility] HISTORICAL RESULTS Comment: Satisfactory for evaluation. Endocervical/transformation zone component present. INTERPRETATION/RESU LT: [facility] HISTORICAL RESULTS Comment:Negative for intraep ithelial lesion or malignancy. COMMENT: [facility] HISTORICAL RESULTS Comment: This Pap test has been evaluated with computer assisted technology. [facility]: [facility] HISTORICAL RESULTS Comment: YQ, CT(ASCP) CT screening location: [place] [address] [place] [address] 08/03/2017 12:1 6 PM PACKAGE DRIER 08/09/2017 8:55 PM PACKAGE DRIER Narrative [facility] HISTORICAL RESULTS - 08/09/2017 8:41 PM PACKAGE DRIER 0 PERFORMING LAB: , [facility] [address] [facility] [address] Mahi Mcmahon MD Historical Provider LAB PATHOLOGY ORDERABLES Final Result [facility] HISTORICAL RESULTS from Last 3 Months or Most Recently Relevant to Health Maintenance Insurance IDPA [facility] MEDICARE ADVANTAGE UHC MEDICARE ADVANTAGE [facility] MEDICARE ADVANTAGE Advance Directives For more information, please contact: [phone] * Full Code (Latest Code Status on File) Date Activated Date Inactivated Comments 05/29/2022 12:59 PM 05/30/2022 2:26 PM * Full Code Date Activated Date Inactivated Comments 05/28/2022 7:20 PM 05/29/2022 12:59 PM Care Teams Manager Unit Relationship Specialty Start Date End Date Inez New PA [address] [place] [address] PCP - General 09/14/17 Candido Guerin MD [address] [place] [address] Consulting Physician Gastroenterology 05/04/23 Anthony Diez MD [address] [place] [address] Consulting Physician Rheumatology 09/18/24
--- OUTSIDE RECORDS SUMMARY | 2025-01-23 00:27 | XMS_ITS | Encounter Summary ---
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
--- OUTSIDE RECORDS SUMMARY | 2025-01-23 00:27 | XMS_ITS | Encounter Summary ---
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
--- OUTSIDE RECORDS SUMMARY | 2025-01-23 00:27 | XMS_ITS | Encounter Summary ---
Author Organization [facility] Facility Care Team Providers Care Plant Engineer Name Role Phone Inez New Primary Care Provider [phone] Candido Guerin MD Unavailable [phone] Anthony Diez MD Unavailable [phone] Encounter Details Date Type Department Care Team (Latest Contact Info) Description 10/01/2016 Orders Only [facility] ProviderVishal MD [address] [place] [address] Social History Tobacco Use Types Packs/Day Years Used Date Smoking Tobacco: Never Assessed Comments Unknown Sex and Gender Information Value Date Recorded Sex Assigned at Not on file Legal Sex Female 4:54 AM [employer] Gender Identity Not on file Sexual Orientation [...] documented as of this encounter Care Teams Plant Engineer Relationship Specialty Start Date End Date Inez New PA [address] [place] [address] PCP - General 09/14/17 Candido Guerin MD [address] [place] [address] Consulting Physician Gastroenterology 05/04/23 Anthony Diez MD [address] [place] [address] Consulting Physician Rheumatology 09/18/24 documented as of this encounter
--- OUTSIDE RECORDS SUMMARY | 2025-01-23 00:27 | XMS_ITS | Encounter Summary ---
Author Organization [facility] Healthcare Address [address] [place] [address] Care Team Providers Care Anthropological Linguist Name Role Phone Inez New Primary Care Provider + [phone] Candido Guerin MD Unavailable [phone] Anthony Diez MD Unavailable [phone] Encounter Details Date Type Department Care Team (Latest Contact Info) Description 12/05/2024 Results Follow-Up [facility] Family [facility] [address] [place] [address] Inez New PA [address] [place] [address] Comprehensive metabolic panel, CBC with [...] on file 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 Gender Identity Not on file Sexual Orientation Not on file Occupation Industry Job Start Date Job End Date Disabled Not on file Not on file Not on file documented as of this encounter Plan of Treatment Not on file documented as of this encounter Visit Diagnoses Not on filedocumented in this encounter Care Teams Anthropological Linguist Relationship Specialty Start Date End Date Inez New PA [address] [place] [address] PCP - General 09/14/17 Candido Guerin MD [address] [place] [address] Consulting Physician Gastroenterology 05/04/23 Anthony Diez MD [address] [place] [address] Consulting Physician Rheumatology 09/18/24 documented as of this encounter
--- OUTSIDE RECORDS SUMMARY | 2025-01-23 00:27 | XMS_ITS | Referral Summary ---
Author Organization [facility] [address] [facility] Address [address] [place] [phone] Care Team Providers Care Communication Center Coordinator Name Role Phone Inez New Primary Care Provider + [phone] Candido Guerin MD Unavailable [phone] Anthony Diez MD Unavailable [phone] Encounters Date Type Department Care Team Description 12/12/2024 8:30 AM CDT Office Visit [facility] Medicine [address] [place] [address] [place] [phone] Inez New [place] Medicare annual wellness visit, subsequent (Primary Dx); Primary osteoarthritis of right knee; Hiatal hernia; Rosacea; Type 2 diabetes mellitus without complication, without long-term current use of insulin (HCC); Type 2 diabetes mellitus with hyperlipidemia (HCC); Hypertension associated with diabetes (HCC); Mental health problem; Cigarette smoker; Immunity status testing; Morbid obesity (HCC); BMI 40.0-44.9, adult (HCC) 12/05/2024 Results Follow-Up [facility] Medicine [address] [place] [address] [place] [phone] Inez New [place] Comprehensive metabolic panel, CBC with auto differential, Hemoglobin A1c, Additional followed-up results: 4 11/13/2024 Orders Only [facility] [place] [address] [facility] [address] [place] [address] Inez New [place] Hypertension associated with diabetes (HCC) (Primary Dx); Type 2 diabetes mellitus with hyperlipidemia (HCC); Vitamin D deficiency; Annual physical exam; Dizziness; Elevated TSH; Other fatigue; Hyperthyroidism 11/02/2024 Orders Only [facility] Health Information Management [address] [place] [phone] Scanning, Provider 11/01/2024 10:00 AM CDT Office Visit [facility] [address] [facility] [address] [place] [phone] Abdullahi Vogel MD Abnormal ECG (Primary Dx) 10/31/2024 Orders Only [facility] Health Information Management [address] [place] [phone] Scanning, Provider 10/30/2024 Telephone [facility] [address] [facility] [address] [place] [phone] Inez New PA from Last [...] 08/26/2024 Assessment & Plan (08/26/2024 4:47 PM BONE COOKING OPERATOR): This is a significant, separately identifiable [...] 08/15/2024 Assessment & Plan (08/26/2024 4:38 PM BONE COOKING OPERATOR): Blood pressure still isn't perfectly controlled. [...] provided. Assessment & Plan (08/15/2024 10:04 AM BONE COOKING OPERATOR): Discussed the patient's BMI. The BMI is above average. BMI management plan is completed. BMI Follow-up includes: nutrition counseling, exercise counseling and education provided. Assessment & Plan (08/01/2024 11:21 AM BONE COOKING OPERATOR): Discussed the patient's BMI. The BMI is above average. BMI management plan is completed. BMI Follow-up includes: nutrition counseling, exercise counseling and education provided. Assessment & Plan (06/11/2024 12:16 PM BONE COOKING OPERATOR): Discussed the patient's BMI. The BMI is above average. BMI management plan is completed. BMI Follow-up includes: nutrition counseling, exercise counseling and education provided. Elevated TSH 03/17/2024 Assessment & Plan (03/18/2024 8:08 PM CDT): Check labs Abnormal thyroid screen (blood) 03/17/2024 Type 2 diabetes mellitus wit hout complication, without long-term current use of insulin 03/17/2024 Assessment & Plan (08/26/2024 4:37 PM BONE COOKING OPERATOR): Stressed importance of continued A1c control to minimize the chemists effects of diabetes. Bring accuchecks to office when instructed to do so. Check A1c about every 3-6 months. Take medication as prescribed. Get annual eye exam. Encouraged GLENDY/Statin if able to tolerate. Encouraged weight control and encouraged diabetic diet and exercise. Continue with metformin 500 el A1c is tightly controlled at 5.8 Assessment & Plan (08/13/2024 1:18 PM BONE COOKING OPERATOR): Stressed importance of continued A1c control [...] mg Assessment & Plan (06/11/2024 12:15 PM BONE COOKING OPERATOR): Stressed importance of continued A1c control [...] Discussed with patient at length diabetes, pathogenesis, chemists sequela, end organ damage, diet/exercise/weight loss, and [...] feet on a regular basis to avoid chemists problems. Offered referral to system integration engineer. Start metformin 500 mg 1 tablet [...] referral Assessment & Plan (09/07/2023 10:34 PM BONE COOKING OPERATOR): Ears are clear. Suspect eustachian tube dysfunction. Recommend Flonase, mucinex and antihistamine. If symptoms persist, may need ENT referral. Morbid obesity 07/22/2022 Assessment & Plan (12/12/2024 8:42 AM CDT): Discussed the patient's BMI. The BMI is above average. BMI management plan is completed. BMI Follow-up includes: nutrition counseling, exercise counseling and education provided. Assessment & Plan (08/26/2024 4:37 PM BONE COOKING OPERATOR): Discussed the patient's BMI. The BMI is above average. BMI management plan is completed. BMI Follow-up includes: nutrition counseling, exercise counseling and education provided. Assessment & Plan (08/01/2024 11:22 AM BONE COOKING OPERATOR): Discussed the patient's BMI. The BMI is above average. BMI management plan is completed. BMI Follow-up includes: nutrition counseling, exercise counseling and education provided. Assessment & Plan (06/11/2024 12:15 PM BONE COOKING OPERATOR): Discussed the patient's BMI. The BMI is above average. BMI management plan is completed. BMI Follow-up includes: nutrition counseling, exercise counseling and education provided. Assessment & Plan (03/18/2024 8:06 PM CDT): Discussed the patient's BMI. The BMI is above average. BMI management plan is completed. BMI Follow-up includes: nutrition counseling, exercise counseling and education provided. Assessment & Plan (09/07/2023 10:31 PM BONE COOKING OPERATOR): Discussed the patient's BMI. The BMI is above average. BMI management plan is completed. BMI Follow-up includes: nutrition counseling, exercise counseling and education provided. Patient has an obesity-related condition (not limited to: hypertension, obstructive sleep apnea, osteoarthritis, hyperlipidemia, diabetes, etc.). Therefore, morbid obesity may be documented for patients with a BMI between 35.00-39.99. Assessment & Plan (05/21/2023 3:46 PM BONE COOKING OPERATOR): Discussed the patient's BMI. The BMI is above average. BMI management plan is completed. BMI Follow-up includes: nutrition counseling, exercise counseling and education provided. Patient has an obesity-related condition (not limited to: hypertension, obstructive sleep apnea, osteoarthritis, hyperlipidemia, diabetes, etc.). Therefore, morbid obesity may be documented for patients with a BMI between 35.00-39.99. Assessment & Plan (07/22/2022 2:01 PM BONE COOKING OPERATOR): Discussed the patient's BMI. The BMI is above average. BMI management plan is completed. BMI Follow-up includes: nutrition counseling, exercise counseling and education provided. Patient has an obesity-related condition (not limited to: hypertension, obstructive sleep apnea, osteoarthritis, hyperlipidemia, diabetes, etc.). Therefore, morbid obesity may be documented for patients with a BMI between 35.00-39.99. Symptomatic anemia 05/28/2022 Assessment & Plan (09/07/2023 10:29 PM BONE COOKING OPERATOR): Known anemia. Has had transfusion. Continue [...] Guajardo Assessment & Plan (06/14/2020 5:55 PM BONE COOKING OPERATOR): Refer back to Ortho. Offered PT. [...] 09/11/2019 Assessment & Plan (06/11/2024 12:15 PM BONE COOKING OPERATOR): Mammogram order provided Assessment & Plan (08/23/2021 9:43 PM BONE COOKING OPERATOR): Mammogram order provided Assessment & Plan (09/26/2020 8:30 PM CDT): Mammogram order provided Assessment & Plan (09/11/2019 9:21 AM CDT): Mammogram order provided Sciatica of right side 06/17/2019 Assessment & Plan (06/17/2019 6:14 PM BONE COOKING OPERATOR): Voltaren gel Exercise/Start PT Followup if [...] therapy. Will still change neurology referral from [place] to [place] as patient able to arranage transportation easier. [...] 09/2018 Assessment & Plan (08/26/2024 4:36 PM BONE COOKING OPERATOR): Encouraged patient to follow low fat/low chol diet like the Mediterranean diet. Increase good fats in the diet. Increase exercise. Monitor labs as needed. Continue Crestor Assessment & Plan (08/13/2024 1:17 PM BONE COOKING OPERATOR): Encouraged patient to follow low fat/low chol diet like the Mediterranean diet. Increase good fats in the diet. Increase exercise. Monitor labs as needed. Continue Crestor Assessment & Plan (06/11/2024 11:51 AM BONE COOKING OPERATOR): Stressed importance of continued A1c control [...] Increase exercise. Monitor labs as needed. Continue [facility] Assessment & Plan (09/07/2023 10:30 PM BONE COOKING OPERATOR): Encouraged patient to follow low fat/low chol diet like the Mediterranean diet. Increase good fats in the diet. Increase exercise. Monitor labs as needed. Continue with [facility] Assessment & Plan (05/21/2023 3:44 PM BONE COOKING OPERATOR): Encouraged patient to follow low fat/low chol diet like the Mediterranean diet. Increase good fats in the diet. Increase exercise. Monitor labs as needed. Continue [facility] Assessment & Plan (07/22/2022 1:49 PM BONE COOKING OPERATOR): Encouraged patient to follow low fat/low chol diet like the Mediterranean diet. Increase good fats in the diet. Increase exercise. Monitor labs as needed. Continue [facility] Assessment & Plan (08/23/2021 9:42 PM BONE COOKING OPERATOR): Encouraged patient to follow fat/low chol diet like the Mediterranean diet. Increase good fats in the diet. Increase exercise. Monitor labs as needed. Continue [facility] Assessment & Plan (04/08/2021 3:01 PM [...] 12/04/2018 Assessment & Plan (06/11/2024 12:15 PM BONE COOKING OPERATOR): Encouraged smoking cessation. Discussed 3 minutes. [...] point Assessment & Plan (09/07/2023 10:30 PM BONE COOKING OPERATOR): Encouraged smoking cessation. Discussed 3 minutes. Reviewed options for assistance with cessation. Reviewed usp sequela associated with smoking. Pt declines assistance at this time but may contact the office at anytime for further help as they desire. Assessment & Plan (07/22/2022 1:47 PM BONE COOKING OPERATOR): Encouraged smoking cessation. Discussed 3 minutes. Reviewed options for assistance with cessation. Reviewed usp sequela associated with smoking. Pt declines assistance at this time but may contact the office at anytime for further help as they desire. Assessment & Plan (08/23/2021 9:42 PM BONE COOKING OPERATOR): Encouraged smoking cessation. Discussed 3 minutes. Reviewed options for assistance with cessation. Reviewed chemists sequela associated with smoking. Pt declines assistance [...] Reviewed options for assistance with cessation. Reviewed chemists sequela associated with smoking. Pt declines assistance at this time but may contact the office at anytime for further help as they desire. Assessment & Plan (06/14/2020 5:55 PM BONE COOKING OPERATOR): Encouraged smoking cessation. Discussed 3 minutes. Reviewed options for assistance with cessation. Reviewed chemists sequela associated with smoking. Pt declines assistance at this time but may contact the office at anytime for further help as they desire. Assessment & Plan (03/15/2020 11:10 AM CDT): Encouraged smoking cessation. Discussed 3 minutes. Reviewed options for assistance with cessation. Reviewed chemists sequela associated with smoking. Pt declines assistance [...] Reviewed options for assistance with cessation. Reviewed chemists sequela associated with smoking. Pt declines assistance at this time but may contact the office at anytime for further help as they desire. Assessment & Plan (06/17/2019 6:16 PM BONE COOKING OPERATOR): Encouraged smoking cessation. Discussed 3 minutes. [...] 12/04/2018 Assessment & Plan (06/11/2024 12:15 PM BONE COOKING OPERATOR): Continue PPI Assessment & Plan (03/18/2024 8:05 PM CDT): Patient has been following closely with Dr. Guerin GI. She transferred and saw Dr. Nath and had an EGD done. States at this point her symptoms are pretty stable so will just continue to monitor continuing the Bentyl as needed and continue PPI p.r.n. Assessment & Plan (05/21/2023 3:44 PM BONE COOKING OPERATOR): Continue PPI p.r.n.. Continue per GI Assessment & Plan (07/22/2022 1:47 PM BONE COOKING OPERATOR): Continue per Dr. Guerin. She is currentl on omeprazole sucralfate. Will await his recommendations Assessment & Plan (08/23/2021 9:42 PM BONE COOKING OPERATOR): Continue PPI. She is unsure if the Dexilant will continue to be covered by her insurance so she will contact us with the letter she has at home with her options. Assessment & Plan (04/08/2021 2:55 PM CDT): Increased reflux symptoms. She is currently on Dexilant. Encouraged to continue with the same regimen. Will refer her to GI Dr. Zamora at [place] she is due for colonoscopy and may [...] 12/04/2018 Assessment & Plan (06/11/2024 12:15 PM BONE COOKING OPERATOR): Supplement Assessment & Plan (03/18/2024 8:06 PM CDT): Supplement Assessment & Plan (09/07/2023 10:30 PM BONE COOKING OPERATOR): Supplement Assessment & Plan (05/21/2023 3:44 PM BONE COOKING OPERATOR): Supplement Assessment & Plan (07/22/2022 1:47 PM BONE COOKING OPERATOR): Supplement Assessment & Plan (09/26/2020 8:14 PM CDT): supplement Assessment & Plan (09/11/2019 9:18 AM CDT): supplement Assessment & Plan (01/30/2019 1:02 PM CDT): supplement COPD (chronic obstructive pulmonary disease) 09/2018 Assessment & Plan (08/26/2024 4:37 PM BONE COOKING OPERATOR): COPD symptoms have been stable. Continue Breo and albuterol p.r.n. Assessment & Plan (08/13/2024 1:18 PM BONE COOKING OPERATOR): Continue with albuterol and Breo as breathing is stable Assessment & Plan (06/11/2024 12:15 PM BONE COOKING OPERATOR): Encouraged complete smoking cessation. Continue Breo and albuterol as needed Assessment & Plan (03/18/2024 8:06 PM CDT): Encouraged complete smoking cessation. Continue albuterol nebs and Breo as needed. Assessment & Plan (09/07/2023 10:30 PM BONE COOKING OPERATOR): Patient with COPD. Continue with albuterol and Breo. Assessment & Plan (05/21/2023 3:44 PM BONE COOKING OPERATOR): Continue Symbicort and albuterol p.r.n. continue Flonase Assessment & Plan (07/22/2022 1:47 PM BONE COOKING OPERATOR): Stressed smoking cessation. Continue Symbicort albuterol inhaler nebulizer p.r.n. Assessment & Plan (07/27/2021 7:15 AM BONE COOKING OPERATOR): Continues Symbicort/prn albuterol Still requires Neb [...] basis as instructed. New prescription sent to [place] pharmacy. [id number] completed today Assessment & Plan (09/26/2020 8:14 PM CDT): Continue Symbicort and Albuterol prn Assessment & Plan (03/15/2020 11:10 AM CDT): Continue current regimen. Stop smoking Assessment & Plan (09/11/2019 9:18 AM CDT): STOP smoking. Continue with current regimen inhalers Albuterol/Symbicort Assessment & Plan (01/30/2019 12:54 PM CDT): Continue with Symbicort SHERRY (obstructive sleep apnea) 12/02/2018 Assessment & Plan (08/26/2024 4:36 PM BONE COOKING OPERATOR): Patient has been diagnosed with SHERRY. Awaiting titration study for treatment plan. Continue per Dr. Manuel Assessment & Plan (06/11/2024 11:43 AM BONE COOKING OPERATOR): Patient has established with Dr. Manuel. She had her sleep study test that did confirm sleep apnea. Awaiting the titration study Assessment & Plan (03/18/2024 8:03 PM CDT): Patient was diagnosed with sleep apnea at [facility] with Dr. Joseph. She would not wear the mask so sent the machine back. Has been untreated for many years. Continues to snore and have daytime sleepiness. Strongly encouraged re- evaluation. Willing to see Dr. Manuel at [facility]. Referral placed Assessment & Plan (09/07/2023 10:30 PM BONE COOKING OPERATOR): Continue with CPAP Assessment & Plan (07/22/2022 1:36 PM BONE COOKING OPERATOR): Continue CPAP Assessment & Plan (04/08/2021 [...] 12/02/2018 Assessment & Plan (08/13/2024 1:17 PM BONE COOKING OPERATOR): Continue to follow with Shakira in [place] Dr. Etienne's office. She stopped her clonazepam [...] acutely. Assessment & Plan (06/11/2024 11:43 AM BONE COOKING OPERATOR): Continue per psychiatrist. She continues to take out her medications and they are updated on her chart Assessment & Plan (03/18/2024 8:04 PM CDT): Continue following with her psychiatrist for management of her mental health concerns. Assessment & Plan (09/07/2023 10:30 PM BONE COOKING OPERATOR): Continue per Psychiatry. Current medications include Klonopin Ingrezza Lexapro Vraylar 6 mg Lamictal and lithium Assessment & Plan (05/21/2023 3:45 PM BONE COOKING OPERATOR): Continue per psychiatrist Assessment & Plan (07/22/2022 1:45 PM BONE COOKING OPERATOR): Continue per psychiatrist. Patient states she is on clonazepam, latuda, Hydroxyzine, Cymbalta and Lexapro Assessment & Plan (08/23/2021 9:42 PM BONE COOKING OPERATOR): Per psychiatrist Assessment & Plan (04/08/2021 2:58 PM CDT): Continue per Psychiatry Assessment & Plan (06/14/2020 5:56 PM BONE COOKING OPERATOR): Unsure of exact diagnosis. Medication/treatment plan [...] 025 Assessment & Plan (08/26/2024 4:46 PM BONE COOKING OPERATOR): Encouraged healthy lifestyle, good nutrition and exercise. Encouraged Calcium and Vitamin D and weight bearing exercise for bone health. Reviewed immunizations Reviewed age appropirate screenings. Elevated blood pressure reading 08/13/2024 08/26/2024 Assessment & Plan (08/13/2024 1:19 PM BONE COOKING OPERATOR): Advised patient it is difficult to know if she has true hypertension versus anxiety/panic. Recommend doing home readings and calling us in a couple of weeks with those readings. If she can not do them at home she can always come in but I know transportation is sometimes difficult. Need for influenza vaccination 06/11/2024 08/26/2024 Assessment & Plan (06/11/2024 12:16 PM BONE COOKING OPERATOR): Flu vaccine updated in the office today Annual physical exam 06/11/2024 025 Assessment & Plan (06/11/2024 12:16 PM BONE COOKING OPERATOR): Encouraged healthy lifestyle, good nutrition and [...] 03/17/2024 Assessment & Plan (09/07/2023 10:31 PM BONE COOKING OPERATOR): Encouraged healthy lifestyle, good nutrition and exercise. Encouraged Calcium and Vitamin D and weight bearing exercise for bone health. Reviewed immunizations. Reviewed age appropirate screenings. Medicare Wellness Documentation is completed within the chart BMI 38.0-38.9,adult 05/21/2023 09/07/19 24 Assessment & Plan (05/21/2023 3:46 PM BONE COOKING OPERATOR): Discussed the patient's BMI. The BMI is above average. BMI management plan is completed. BMI Follow-up includes: nutrition counseling, exercise counseling and education provided. BMI 39.0-39.9,adult 07/22/2022 05/04/20 23 Assessment & Plan (07/22/2022 1:48 PM BONE COOKING OPERATOR): Discussed the patient's BMI. The BMI is above average. BMI management plan is completed. BMI Follow-up includes: nutrition counseling, exercise counseling and education provided. Need for vaccination 07/22/2022 024 Assessment & Plan (05/21/2023 3:46 PM BONE COOKING OPERATOR): Flu vaccine updated in the office Assessment & Plan (07/22/2022 1:48 PM BONE COOKING OPERATOR): Flu vaccine at the office today Encounter for screening mamm ogram for malignant neoplasm of breast 07/22/2022 09/07/2023 Assessment & Plan (07/22/2022 1:48 PM BONE COOKING OPERATOR): Mammogram order provided Bloody diarrhea 04/08/2021 [...] 09/07/2023 Assessment & Plan (07/22/2022 1:48 PM BONE COOKING OPERATOR): Encouraged healthy lifestyle, good nutrition and [...] 2016. Prefers to see a provider at [facility]. She is also having burning in [...] 01/14/20212022 Assessment & Plan (08/23/2021 9:43 PM BONE COOKING OPERATOR): Obesity is unchanged. Discussed the patient's [...] 23 Assessment & Plan (07/27/2021 7:21 AM BONE COOKING OPERATOR): Obesity is unchanged. Discussed the patient's [...] onset of sxs. Check COVID test thru [facility] collection site in [place]. Treat sxs with Tylenol, Cough/cold medication otc [...] water often. If needed, use a hand mechanical engineering lecturer that contains at least 60% alcohol. Clean [...] 04/08/2021 Assessment & Plan (07/22/2020 11:47 AM BONE COOKING OPERATOR): Declines covid 19 testing at this time. Will start on ceftin 500mg bid x 7 days. She was advised to report to office if having otorrhea or worsening of symptoms. Need for immunization against influenza 06/14/2020 02/17/2021 Assessment & Plan (06/14/2020 5:57 PM BONE COOKING OPERATOR): Updated in office today BMI 37.0-37.9, adult 06/10/2020 024 Assessment & Plan (09/07/2023 10:31 PM BONE COOKING OPERATOR): Discussed the patient's BMI. The BMI is above average. BMI management plan is completed. BMI Follow-up includes: nutrition counseling, exercise counseling and education provided. Assessment & Plan (06/10/2020 1:35 PM BONE COOKING OPERATOR): Obesity is unchanged. Discussed the patient's BMI. The BMI is above average. BMI management plan is completed. BMI Follow-up includes: nutrition counseling, exercise counseling and education provided.Obesity is unchanged. Discussed the patient's BMI. Positive depression screening 06/10/2020 12/23/2024 Assessment & Plan (07/22/2020 11:47 AM BONE COOKING OPERATOR): Continue medication same Assessment & Plan (06/14/2020 5:56 PM BONE COOKING OPERATOR): Pt denies any suicidal or homicidal [...] 03/17/2024 Assessment & Plan (09/07/2023 10:30 PM BONE COOKING OPERATOR): Probably multifactorial. Check labs and followup to re-evaluate Assessment & Plan (09/11/2019 9:21 AM CDT): Probably multifactorial. Check labs and followup to re-evaluate Hyperglycemia 09/11/2019 03/06/2024 Assessment & Plan (09/07/2023 10:30 PM BONE COOKING OPERATOR): Pre-diabetes/hyperglycemia is a precursor to Dm. [...] on file Legal Sex Female 4:54 AM BONE COOKING OPERATOR Gender Identity Not on file Sexual [...] Read Routine (OP Routine) 08/08/2024 2:15 PM BONE COOKING OPERATOR Breast cancer screening by mammogram HM COLONOSCOPY Routine 05/26/2021 THINPREP ENVIRONMENTAL MONITORING SPECIALIST PAP (IMAGE GUIDED) LIQUID-BASED PREP Routine 08/03/2017 12:16 PM BONE COOKING OPERATOR from Last 3 Months or Most Recently Relevant to Health Maintenance Results * (ABNORMAL) CBC with auto differential (12/04/2024 7:26 AM CDT) Pathologist [facility] WBC 6.0 3.8 - 10.8 Thousand/u L [...] BLOOD ORDERABLES Final Result Performing Organization Address [facility] Co de Phone Number [facility] [address] [place] [address] * TSH (12/04/2024 7:26 AM CDT) [facility] TSH 2.63 mIU/L [facility] Comment: Reference Range > or = 20 Years 0.40-4.50 Ranges First trimester 0.26-2.66 Second trimester 0.55-2.73 Third trimester 0.43-2.91 Blood 12/04/2024 7:26 AM CDT 12/04/2024 7:27 AM CDT Narrative [facility] - 12/04/2024 9:47 PM CDT FASTING:YES FASTING: YES Inez [facility] LAB BLOOD ORDERABLES Final Result Performing Organization Address [facility] de Phone Number [facility] [address] [place] [address] * Hemoglobin A1c (12/04/2024 7:26 AM CDT) Pathologist [facility] Hgb A1C 5.3 <5.7 % of total Hgb [facility] Comment: For the purpose of screening for the presence of diabetes: <5.7% Consistent with the absence of diabetes 5.7-6.4% Consistent with increased risk for diabetes (prediabetes) > or =6.5% Consistent with diabetes This assay result is consistent with a decreased risk of diabetes. Currently, no consensus exists regarding use of hemoglobin A1c for diagnosis of diabetes in children. According to [place] Diabetes Association (ADA) guidelines, hemoglobin A1c <7.0% represents optimal control in non- diabetic patients. Different metrics may apply to specific patient populations. Standards of Medical Care in Diabetes(ADA). Blood 12/04/2024 7:26 AM CDT 12/04/2024 7:27 AM CDT Narrative [facility] - 12/04/2024 9:47 PM CDT FASTING:YES FASTING: YES Inez VELASCO LAB BLOOD ORDERABLES Final Result [facility] [address] [place] [address] * (ABNORMAL) Lipid panel (12/04/2024 7:26 AM CDT) Cholesterol 145 <200 mg/dL [facility] shukri [facility] HDL 44(L) > OR = 50 mg/dL [facility] shuk[facility] Triglycerides 195(H) <150 mg/dL [facility] shukri Jackson LDL 72 mg/dL (calc) [facility] shukri Jackson Comment: Reference range: <100 Desirable range <100 mg/dL for primary prevention; <70 mg/dL for patients with CHD or diabetic patients with > or = 2 CHD risk factors. LDL-C is now calculated using the Arley-Devi calculation, which is a validated novel method providing better accuracy than the Friedewald equation in the estimation of LDL-C. Arley COSTA et al. FRANKY. 2013;310(19): 2966-6492 (http://education.Landscape Mobile/faq/XFF977) Chol/HDL ratio 3.3 <5.0 (calc) [facility] shuk[facility] Jackson Non-HDL, (LDL+VLDL) 101 <130 mg/dL (calc) [facility] shukri Jackson Comment: For patients with diabetes plus 1 major ASCVD risk factor, treating to a non-HDL-C goal of <100 mg/dL (LDL-C of <70 mg/dL) is considered a therapeutic option. Blood 12/04/2024 7:26 AM CDT 12/04/2024 7:27 AM CDT Narrative [facility] - 12/04/2024 9:47 PM CDT FASTING:YES FASTING: YES Inez VELASCO LAB BLOOD ORDERABLES Final Result ESTELLA Estella Jackson [address] [place] [address] * Comprehensive metabolic panel (12/04/2024 7:26 AM CDT) [facility] Glucose 87 65 - 99 mg/dL Estlela [facility]erson Jackson Comment: Fasting reference interval BUN 11 7 - 25 mg/dL Estella GalvanGeneNewsEmerson Jackson Creatinine 0.67 0.50 - 1.03 mg/dL Estella [facility]erson Jackson eGFR 104 > OR = 60 mL/min/1.7 3m2 Estella [employer]Emerson Jackson BUN/creat ratio SEE NOTE: (calc) Estella [employer] Comment: Not Reported: BUN and Creatinine are within reference range. Sodium 137 135 - 146 mmol/L Estella [facility] Potassium, pl 4.5 3.5 - 5.3 mmol/L Estella Galvan-Emerson Jackson Chloride 101 98 - 110 mmol/L Estella [employer]S shukri Jackson CO2 27 20 - 32 mmol/L Estella [employer] shukri Jackson Calcium 9.3 8.6 - 10.4 mg/dL Estella [employer]Emerson Jackson Protein, sr 6.5 6.1 - 8.1 g/dL Estella Galvan-Emerson Jackson Albumin 4.2 3.6 - 5.1 g/dL Estella [employer] GLOBULIN 2.3 1.9 - 3.7 g/dL (calc) Estella [facility]-Emerson Jackson Alb/glob ratio 1.8 1.0 - 2.5 (calc) Estella [employer] shukri Jackson Bilirubin, total 0.6 0.2 - 1.2 mg/dL Estella [employer]Em[facility] Alk phos 77 37 - 153 U/L Estella [employer]Emerson Jackson AST 21 10 - 35 U/L [facility]Emerson Jackson ALT (SGPT) 21 6 - 29 U/L ZytoprotecEmerson Jackson Blood 12/04/2024 7:26 AM CDT 12/04/2024 7:27 AM CDT Narrative [facility] - 12/04/2024 9:47 PM CDT FASTING:YES FASTING: YES Inez VELASCO LAB BLOOD ORDERABLES Final Result [facility] [address] [place] [address] * Albumin Creatinine Ratio, Urine (12/04/2024 7:24 [...] URINE ORDERABLES Final Result Performing Organization Address City/[facility]/ZIP Co de Phone Number [facility] [address] [place] [address] * Vitamin D 25 hydroxy (12/04/2024 7:24 [...] D, (D2,D3), LC/MS/MS is recommended: order code 20410 (patients >2yrs). See Note 1 Note 1 For additional information, please refer to http://education.[employer].Mapidy/faq/YHZ812 (This link is being provided for informational/ educational purposes only.) Blood 12/04/2024 7:24 AM CDT 12/04/2024 7:25 AM CDT Narrative [facility] - 12/05/2024 2:57 AM CDT FASTING:YES FASTING: YES us Inez VELASCO LAB BLOOD ORDERABLES Final Result [facility] [address] [place] [address] * SCAN - LABS (11/02/2024) Provider Scanning Edited Result - Final * Electrocardiogram Report (11/01/2024 10:27 AM CDT) Abdullahi Vogel MD ECG ORDERABLES Final Result * SCAN - RADIOLOGY/IMAGING (10/31/2024) Anatomical Region Laterality Modality Other Provider Scanning Final Result * SCAN - LABS (10/31/2024) us Provider Scanning Final Result * Screening Mammogram Bilateral W Alberto (08/08/2024 2:15 PM BONE COOKING OPERATOR) Anatomical Region Laterality Modality Breast Bilateral Mammography Impressions 08/08/2024 2:15 PM BONE COOKING OPERATOR 1.No mammographic evidence of malignancy 2.Routine screening recommended for 1 year BI-RADS Category 1 Negative us Inez VELASCO IMG MAMMO PROCEDURES Final Result * (ABNORMAL) HM COLONOSCOPY (05/26/2021) Vishal Joyner MD HEALTH MAINTENANCE Edited Result - Final * ThinPrep Gynecologic Pap Test (Image-guided), Liquid-based Preparation (08/03/2017 12:16 PM BONE COOKING OPERATOR) CLINICAL INFORMATION [facility] HISTORICAL RESULTS [...] has been evaluated with computer assisted technology. 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 [address] 08/03/2017 12:1 6 PM BONE COOKING OPERATOR 08/09/2017 8:55 PM BONE COOKING OPERATOR Narrative [facility] HISTORICAL RESULTS - 08/09/2017 8:41 PM BONE COOKING OPERATOR 0 PERFORMING LAB: [facility] [address] [facility] [address] Mahi Mcmahon MD Historical Provider LAB PATHOLOGY ORDERABLES Final Result Performing Organization Address City/State/[facility] Co de Phone Number [facility] HISTORICAL RESULTS from Last 3 Months or Most Recently Relevant to Health Maintenance Insurance IDPA [facility] MEDICARE ADVANTAGE IDPA [facility] MEDICARE ADVANTAGE MEDICARE ADVANT[facility] Address: [facility] [address] [place] [address] Advance Directives For more information, please contact: [phone] * Full Code (Latest Code Status on File) Date Activated Date Inactivated Comments 05/29/2022 12:59 PM 05/30/2022 2:26 PM * Full Code Date Activated Date Inactivated Comments 05/28/2022 7:20 PM 05/29/2022 12:59 PM Care Teams Communication Center Coordinator Relationship Specialty Start Date End Date Inez New [place] [address] [place] [address] PCP - General 09/14/17 Candido Guerin MD [address] [place] [address] Consulting Physician Gastroenterology 05/04/23 Anthony Diez MD [address] [place] [address] Consulting Physician Rheumatology 09/18/24
--- OUTSIDE RECORDS SUMMARY | 2025-01-23 00:27 | XMS_ITS | Encounter Summary ---
Author Organization [facility] Facility Care Team Providers Care Cutter Gas Name Role Phone Inez New Primary Care Provider [phone] Candido Guerin MD Unavailable [phone] Anthony Diez MD Unavailable [phone] Encounter Details Date Type Department Care Team (Latest Contact Info) Description 10/07/2017 Orders Only [facility] CLINCONV ProviderVishal MD [address] [place] [address] Social History Tobacco Use Types Packs/Day Years Used Date Smoking Tobacco: Never Assessed Comments Unknown Sex and Gender Information Value Date Recorded Sex Assigned at Not on file Legal 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
--- OUTSIDE RECORDS SUMMARY | 2025-01-23 00:28 | XMS_ITS | Patient Health Record ---
Author Organization [facility] [employer] [facility] Address [address] [facility] [address] [place] [address] Care Team Providers Care Nurse Practitioner Physicians Assistant Name Role Phone Rachell New PA-C Primary Care Provider Unav ailKacy Beal Unavailable [phone] Vitaliy Nelson Ale Unavailable [phone] Polina Hernandez Unavailable [phone] Allergies No Known Allergies Results Component Value Reference Range Notes UDT Reviewed date:07/31/2024 03:17:21 PM Interpretation: Performing Lab: Notes/Report: THC N 0 - 50 ng/ml Cocaine N 0 - 300 ng/ml Amphetamine N 0 - 1000 ng/ml Buprenorphine (BUP) N 0 - 10 ng/ml Secobarbital (Bar) N 0 - 300 ng/ml Oxazepam (BZO) N 0 - 300 ng/ml 6-epvtyokmpt-1,5-wtijhyna-9,3-diphenylpyrrolidine (JOHN P) N 0 - 300 ng/ml Methamphetamine (MET) N 0 - 1000 ng/ml Methylenedioxymethamphetamine (MDMA) N 0 - 500 ng/ml Morphine (MOP 300/[id number]) N 0 - 300 ng/ml Methadone (MTD) [...] Propionate Diskus 50 MCG/ACT Inhalation *Reorder from [facility] for eRx and Interaction Alerts* [...] 1 application Externally Twice a day Active [place] Carbonate ER 300 mg 1 tablet at bedtime oral daily Active lamoTRIgine 200 mg TAKE 1 TABLET BY MOUTH TWICE A DAY Active Albuterol Sulfate (2.5 MG/3ML) 0.083% Inhalation 11/22/2023 Active Cetirizine HCl 10 MG Oral 11/22/2023 Active Breo Ellipta 200-25 MCG/INH Inhalation 11/22/2023 Active Immunizations Vaccine Route Administration Date Status Comme nts Tdap Unknown 06/30/2017 Administered Pfizer BiontMitoGenetics Covid-19 Vaccine 2nd dose Unknown 10/30/2020 Administered Pfizer Biontech Covid-19 Vaccine 2nd dose Unknown 11/25/2020 Administered Novel [id number], preservative free Unknown 06/10/2020 Administered Novel Bkydfnauc-[id number], preservative free Unknown 04/06/2021 Administered Influenza, unspecified formulation Unknown 07/02/2019 Administered Influenza, quadrivalent, split virus Unknown 05/14/2019 Administered Source [facility] Code: V00 - [facility] eligibility not determined/unknown Influenza, injectable, MDCK, preservative [...] NoDo you have a medical power of employment attorney?: NoPublic Health and TravelHave you been [...] NoDo you have a medical power of employment attorney?: NoPublic Health and TravelHave you been [...] NoDo you have a medical power of employment attorney?: NoPublic Health and TravelHave you been [...] NoDo you have a medical power of employment attorney?: NoPublic Health and TravelHave you been [...] NoDo you have a medical power of employment attorney?: NoPublic Health and TravelHave you been [...] NoDo you have a medical power of employment attorney?: NoPublic Health and TravelHave you been [...] NoDo you have a medical power of employment attorney?: NoPublic Health and TravelHave you been [...] Den ies dependence. Drinks ETOH on weekends. Den ies dependence [...] NoDo you have a medical power of employment attorney?: NoPublic Health and TravelHave you been [...] NoDo you have a medical power of employment attorney?: NoPublic Health and TravelHave you been [...] depressed bipolar I disorder without psychotic features (97740808) Bipolar disorder, current episode depressed, severe, without psychotic features (F31.4) 4 Active confirmed Problem Bipolar disorder (21842865) Bipolar disorder, unspecified (F31.9) Active confirmed Problem Generalized anxiety disorder (82638656) Generalized anxiety disorder (F41.1) 4 Active confirmed Problem Posttraumatic stress disorder (68818738) Post-traumatic stress disorder, chronic (F43.12) Active confirmed Problem Borderline personality disorder (97913464) Borderline personality disorder (F60.3) 4 Active confirmed Problem Obstructive sleep apnea syndrome (disorder) (83838306) Obstructive sleep apnea (adult) (pediatric) (G47.33) 4 Active confirmed Problem Tardive dyskinesia (669748650) Tardive dyskinesia (G24.01) Active confirmed Problem Tobacco use (652034346) Nicotine use (Z72.0) Active confirmed Problem Essential hypertension (53933910) Benign essential HTN (I10) Active confirmed Vital Signs Heart Rate 60 /min 12/24/2024 Height-cm 170.18 cm 12/24/2024 Blood pressure diastolic 77 mm Hg 12/24/2024 Weight-kg 99.34 kg 12/24/2024 Height 67.00 in 12/24/2024 Blood pressure systolic 127 mm Hg 12/24/2024 Weight 219 lbs 12/24/2024 BMI 34.3 kg/m2 12/24/2024 Encounters Encounter Location Date Provider Diagnosis [facility] [address] [address] 02/14/2024 Ale Nelson Borderline personali ty disorder F60.3 ; Bipolar disorder, current episode depressed, severe, without psychotic features F31.4 and Generalized anxiety disorder F41.1 [facility] [address] [facility] [address] [place] [address] 02/14/2024 Polina Hernandez Bipolar disorder, current episode depressed, severe, without psychotic features F31.4 ; Generalized anxiety disorder F41.1 ; Borderline personality disorder F60.3 ; Tardive dyskinesia G24.01 and Obstructive sleep apnea (adult) (pediatric) G47.33 [facility] [address] [facility] [address] [place] [address] 03/27/2024 Ale Nelson Bipolar disorder, current episode depressed, severe, without psychotic features F31.4 ; Generalized anxiety disorder F41.1 ; Borderline personality disorder F60.3 and Post-traumatic stress disorder, chronic F43.12 [facility] [address] [address] 04/30/2024 Ale Burks Omar Borderline personali ty disorder F60.3 ; Bipolar disorder, current episode depressed, severe, without psychotic features F31.4 ; Generalized anxiety disorder F41.1 and Post-traumatic stress disorder, chronic F43.12 [facility] [address] [address] 05/24/2024 Alebritney Nelson Borderline personali ty disorder F60.3 ; Severe episode of recurrent major depressive disorder, without psychotic features F33.2 and Post-traumatic stress disorder, chronic F43.12 [place] [address] [address] 06/01/2024 Kacy Marroquin Bipolar disorder, current episode depressed, severe, without psychotic features F31.4 ; Generalized anxiety disorder F41.1 ; Post-traumatic stress disorder, chronic F43.12 ; Tardive dyskinesia G24.01 ; Borderline personality disorder F60.3 ; Benzodiazepine dependence F13.20 and Obstructive sleep apnea (adult) (pediatric) G47.33 [place] [address] [address] 06/19/2024 Ale Nelson Generalized anxiety disorder F41.1 ; Borderline personality disorder F60.3 and Post-traumatic stress disorder, chronic F43.12 [facility] [address] [address] 07/31/2024 Ale Nelson Bipolar disorder, current episode depressed, severe, without psychotic features F31.4 ; Generalized anxiety disorder F41.1 and Borderline personality disorder F60.3 [facility] [address] [address] 07/31/2024 Kacy Marroquin Bipolar disorder, current episode depressed, severe, without psychotic features F31.4 ; Generalized anxiety disorder F41.1 ; Post-traumatic stress disorder, chronic F43.12 ; Tardive dyskinesia G24.01 ; Borderline personality disorder F60.3 and Obstructive sleep apnea (adult) (pediatric) G47.33 [place] [address] [facility] [address] [address] 08/16/2024 Ale Nelsno Generalized anxiety disorder F41.1 ; Bipolar disorder, current episode depressed, severe, without psychotic features F31.4 ; Post-traumatic stress disorder, chronic F43.12 and Borderline personality disorder F60.[address] [address] 08/24/2024 Kacy Marroquin Generalized anxiety disorder F41.1 ; Bipolar disorder, current episode depressed, severe, without psychotic features F31.4 ; Post-traumatic stress disorder, chronic F43.12 ; Tardive dyskinesia G24.01 ; Borderline personality disorder F60.3 ; Nicotine dependence with current use F17.200 ; Benign essential HTN I10 and Obstructive sleep apnea (adult) (pediatric) G47.[address] [address] 08/28/2024 Ale Nelson Borderline personali ty disorder F60.3 ; Bipolar disorder, current episode depressed, severe, without psychotic features F31.4 ; Post-traumatic stress disorder, chronic F43.12 and Generalized anxiety disorder F41.[address] [address] 09/03/2024 Ale Nelson Post-traumatic stres s disorder, chronic F43.12 ; Bipolar disorder, current episode depressed, severe, without psychotic features F31.4 ; Generalized anxiety disorder F41.1 and Borderline personality disorder F60.3 [place] [id number] [facility] [address] [address] [address] 09/19/2024 Kacy Marroquin Generalized anxiety disorder F41.1 ; Borderline personality disorder F60.3 ; Post-traumatic stress disorder, chronic F43.12 ; Bipolar disorder, current episode depressed, severe, without psychotic features F31.4 ; Benign essential HTN I10 ; Obstructive sleep apnea (adult) (pediatric) G47.33 ; Nicotine use Z72.0 and Encounter for screening for depression Z13.31 [place] [address] [facility] [address] [address] 11/16/2024 Ale Nelson Bipolar disorder, current episode depressed, severe, without psychotic features F31.4 ; Post-traumatic stress disorder, chronic F43.12 ; Borderline personality disorder F60.3 ; Generalized anxiety disorder F41.1 and Encounter for screening for depression Z13.31 [facility] [employer], [place] [address] [place] [address] 11/19/2024 Kacy Marroquin Bipolar disorder, current episode depressed, severe, without psychotic features F31.4 ; Generalized anxiety disorder F41.1 ; Post-traumatic stress disorder, chronic F43.12 ; Borderline personality disorder F60.3 ; Obstructive sleep apnea (adult) (pediatric) G47.33 ; Nicotine use Z72.0 ; Benign essential HTN I10 and Encounter for screening for depression Z13.31 [facility] [employer], [place] [address] [place] [address] 12/24/2024 Kacy Bhavinkarissa Bipolar disorder, current episode depressed, severe, without psychotic features F31.4 ; Generalized anxiety disorder F41.1 ; Post-traumatic stress disorder, chronic F43.12 ; Borderline personality disorder F60.3 ; Nicotine use Z72.0 ; Obstructive sleep apnea (adult) (pediatric) G47.33 ; Benign essential HTN I10 and Encounter for screening for depression Z13.31 [facility] [employer], [place] [address] [facility] [address] [place] [address] 08/23/2024 Kacy Marroquin [facility] [employer], [place] [address] [place] [address] 12/28/2024 Kacy Marroquin [facility] [employer], [place] [address] [place] [address] 02/28/2024 Polina Hernandez [facility] [employer], [facility] [address] [place] [address] 03/16/2024 Polina Hernandez [facility], [facility] [address] [place] [address] 04/24/2024 Polina Hernandez [facility] [employer], [place] [address] [place] [address] 05/24/2024 [facility] [employer], [place] [address] [place] [address] 06/08/2024 Kacy Marroquin [facility] [employer], [facility] [address] [facility] [address] [place] [address] 06/11/2024 Kacy Marroquin Bipolar disorder, current episode depressed, severe, without psychotic features F31.4 ; Tardive dyskinesia G24.01 and Generalized anxiety disorder F41.1 [facility], [facility] [address] [facility] [address] [place] [address] 06/18/2024 Kacy Marroquin [facility], [facility] [address] [facility] [address] [place] [address] 08/01/2024 Kacy Marroquin [facility], [facility] [address] [address] 08/03/2024 Kacy Marroquin Generalized anxiety disorder F41.1 [facility], [facility] [address] [address] 08/22/2024 Kacy Marroquin [facility], [facility] [address] [address] 08/24/2024 Kacy Marroquin [facility] [employer], [facility] [address] [address] 10/15/2024 [facility] [address] [address] 12/25/2024 Kacy Marroquin Assessments Encounter Date Diagnosis [...] liver function tests and consider referral to crm specialist if needed. Sleep Apnea - Assessment: [...] she will consider getting an implant at [facility]. 05/24/2024 Severe episode of recurrent major [...] she will consider getting an implant at [facility]. 06/01/2024 Bipolar disorder, current episode depressed, [...] liver function tests and consider referral to crm specialist if needed. Sleep Apnea - Assessment: [...] sorted out. Plans to discuss medications with network controller as upcoming appointment Plan: - Continue lithium 300mg daily - Continue fluoxetine 40mg daily - Continue lamotrigine 200mg twice daily - Monitor for effectiveness and side effects - Reassess need for medication adjustments after cardiology consultation Anxiety Disorder Assessment: Patient experiences ongoing anxiety with panic attacks, particularly during car rides. Reports some improvement with current management. Using propranolol and cnys-icy-sfuejfl anxiety patches (Blaise patches with Ashwagandha and [...] use - Consider prazosin for nightmares, pending network controller approval due to potential blood pressure effects [...] and blood pressure at home - Obtain network controller's input on psychiatric medications that may affect [...] justine to a new medication Medication considered [id number] Sertraline (Zoloft), CYP2D5 Aripiprazole (Abilify), CYP2D6 Brexpiprazole [...] sorted out. Plans to discuss medications with network controller as upcoming appointment Plan: - Continue lithium 300mg daily - Continue fluoxetine 40mg daily - Continue lamotrigine 200mg twice daily - Monitor for effectiveness and side effects - Reassess need for medication adjustments after cardiology consultation Anxiety Disorder Assessment: Patient experiences ongoing anxiety with panic attacks, particularly during car rides. Reports some improvement with current management. Using propranolol and gviw-lhe-fsrjzeq anxiety patches (Blaise patches with Ashwagandha and [...] use - Consider prazosin for nightmares, pending network controller approval due to potential blood pressure effects [...] and blood pressure at home - Obtain network controller's input on psychiatric medications that may affect [...] she will consider getting an implant at [facility]. 06/01/2024 Post-traumatic stress disorder, chronic (ICD-10 [...] liver function tests and consider referral to crm specialist if needed. Sleep Apnea - Assessment: [...] take only as prescribed, send as 28 day/Clay decrease alcohol, do not combine alcohol and [...] liver function tests and consider referral to crm specialist if needed. Sleep Apnea - Assessment: [...] sorted out. Plans to discuss medications with network controller as upcoming appointment Plan: - Continue lithium 300mg daily - Continue fluoxetine 40mg daily - Continue lamotrigine 200mg twice daily - Monitor for effectiveness and side effects - Reassess need for medication adjustments after cardiology consultation Anxiety Disorder Assessment: Patient experiences ongoing anxiety with panic attacks, particularly during car rides. Reports some improvement with current management. Using propranolol and bxxa-cpm-diznbgm anxiety patches (Blaise patches with Ashwagandha and [...] use - Consider prazosin for nightmares, pending network controller approval due to potential blood pressure effects [...] and blood pressure at home - Obtain network controller's input on psychiatric medications that may affect [...] sorted out. Plans to discuss medications with network controller as upcoming appointment Plan: - Continue lithium 300mg daily - Continue fluoxetine 40mg daily - Continue lamotrigine 200mg twice daily - Monitor for effectiveness and side effects - Reassess need for medication adjustments after cardiology consultation Anxiety Disorder Assessment: Patient experiences ongoing anxiety with panic attacks, particularly during car rides. Reports some improvement with current management. Using propranolol and qidn-wby-nnqccfs anxiety patches (Blaise patches with Ashwagandha and [...] use - Consider prazosin for nightmares, pending network controller approval due to potential blood pressure effects [...] and blood pressure at home - Obtain network controller's input on psychiatric medications that may affect [...] sorted out. Plans to discuss medications with network controller as upcoming appointment Plan: - Continue lithium 300mg daily - Continue fluoxetine 40mg daily - Continue lamotrigine 200mg twice daily - Monitor for effectiveness and side effects - Reassess need for medication adjustments after cardiology consultation Anxiety Disorder Assessment: Patient experiences ongoing anxiety with panic attacks, particularly during car rides. Reports some improvement with current management. Using propranolol and yxho-dds-nymnqsg anxiety patches (Blaise patches with Ashwagandha and [...] use - Consider prazosin for nightmares, pending network controller approval due to potential blood pressure effects [...] and blood pressure at home - Obtain network controller's input on psychiatric medications that may affect [...] sorted out. Plans to discuss medications with network controller as upcoming appointment Plan: - Continue lithium 300mg daily - Continue fluoxetine 40mg daily - Continue lamotrigine 200mg twice daily - Monitor for effectiveness and side effects - Reassess need for medication adjustments after cardiology consultation Anxiety Disorder Assessment: Patient experiences ongoing anxiety with panic attacks, particularly during car rides. Reports some improvement with current management. Using propranolol and oomm-sbm-lniwvro anxiety patches (Blaise patches with Ashwagandha and [...] use - Consider prazosin for nightmares, pending network controller approval due to potential blood pressure effects [...] and blood pressure at home - Obtain network controller's input on psychiatric medications that may affect [...] sorted out. Plans to discuss medications with network controller as upcoming appointment Plan: - Continue lithium 300mg daily - Continue fluoxetine 40mg daily - Continue lamotrigine 200mg twice daily - Monitor for effectiveness and side effects - Reassess need for medication adjustments after cardiology consultation Anxiety Disorder Assessment: Patient experiences ongoing anxiety with panic attacks, particularly during car rides. Reports some improvement with current management. Using propranolol and qptr-slw-oimkhdl anxiety patches (Blaise patches with Ashwagandha and [...] use - Consider prazosin for nightmares, pending network controller approval due to potential blood pressure effects [...] and blood pressure at home - Obtain network controller's input on psychiatric medications that may affect [...] sorted out. Plans to discuss medications with network controller as upcoming appointment Plan: - Continue lithium 300mg daily - Continue fluoxetine 40mg daily - Continue lamotrigine 200mg twice daily - Monitor for effectiveness and side effects - Reassess need for medication adjustments after cardiology consultation Anxiety Disorder Assessment: Patient experiences ongoing anxiety with panic attacks, particularly during car rides. Reports some improvement with current management. Using propranolol and zxar-omn-sssybnn anxiety patches (Blaise patches with Ashwagandha and [...] use - Consider prazosin for nightmares, pending network controller approval due to potential blood pressure effects [...] and blood pressure at home - Obtain network controller's input on psychiatric medications that may affect [...] family stressors and being alone, leading to veterinary attendant visits and hospitalizations. - Plan: - Continue [...] - Plan: - Continue therapy sessions with CRYPTOGRAPHIC CLERK - Explore trauma-focused therapies (e.g., EMDR) to [...] - Plan: - Proceed with the scheduled men's locker room attendant appointment on the for further evaluation and management. Weight Loss, Poor Appetite, and Vomiting - Assessment: The patient reports losing weight, not eating much, experiencing dry heaves, and frequent vomiting. - Plan: - Monitor the patient's weight and nutritional intake. - Consider referral to a animal hospital office supervisor for dietary guidance and support. - Evaluate [...] Recommend the patient to consult with a healthcare or medical for further evaluation and potential diagnosis. - [...] normal. - Plan: - Schedule follow-up with men's locker room attendant - Recommend reducing alcohol consumption - Follow [...] is currently under the care of a traffic lieutenant for further evaluation. Plan: - Await results [...] psychiatric medications: - Lamotrigine - Fluoxetine - [place] - Monitor for worsening of mood symptoms [...] - Lamotrigine 200 mg twice daily - [place] 300 mg at bedtime - Fluoxetine 40 [...] 02/08/2025 08:00:00 AM, [address], [address], [address], Provider Name:Kacy brown, 02/08/2025 09:15:00 AM, [address], [facility] [address], [place], [address], Provider Name:Ale Nelson, 03/14/2025 08:00:00 AM, [address], [facility] [address], [address], Insurance Providers Payer Name Payer Address Payer Phone Subscriber Number Group Number Insured Name Patient Relationship to Insured Coverage Start Date Coverage End Date [facility] [address] [place] [address] [id number] JEREMIAH GORDON Self - patient is the insured [place] Medicaid [address] [address] [place] [address] [id number] JEREMIAH GORDON Self - patient is the [...]
--- OUTSIDE RECORDS SUMMARY | 2025-01-23 00:28 | XMS_ITS | Encounter Summary ---
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
[2025-01-23] MEDS: ACETAMINOPHEN 500 MG TABLET 1000 MG PO (06:30)
[2025-01-23] MEDS: LACTATED RINGERS 1,000 ML 30 ML IV CONT ×2 (06:35→11:00)
[2025-01-23] MEDS: KETOROLAC 15 MG/ML VIAL (*BKC) IV PUSH (06:35)
--- NOTE | 2025-01-23 07:04 | WPDANESEPPF ---
Anes - Initial Pre Proc Eval Procedure: Operation Date: 01/23/25 07:30 Proposed Procedures p Laparoscopic Paraesophageal Hernia Repair with Fundoplication, Da Mikki Assisted - Everett Vasquez DO Date/Time: 01/23/25 07:04 Surgeon: Everett Vasquez DO Pre Op Diagnosis: hiatal hernia, gerd Patient Data Age: 54 Gender: F Height: 1.7 m Weight: 97.7 kg Last Vital Signs Temp 36.3 C L 01/23/25 06:10 Pulse 68 01/23/25 06:10 Resp 18 01/23/25 06:10 BP 140/88 01/23/25 06:10 Pulse Ox 98 01/23/25 06:10 O2 Del Method Room Air 01/23/25 06:10 Allergies Allergy/AdvReac Type Severity Reaction Status Date / Time No Known Allergies Allergy Unknown Verified 01/23/25 06:45 Home Medications ?Medication ?Instructions ?Recorded ?Confirmed ?Type albuterol sulfate 90 mcg/actuation 1 puff inhalation DIRECTED 11/22/19 01/23/25 History aerosol inhaler (Ventolin HFA) escitalopram oxalate 5 mg tablet 5 mg PO DIRECTED 11/22/19 01/23/25 History lamotrigine 150 mg tablet 150 mg PO DIRECTED 11/22/19 01/23/25 History meclizine 12.5 mg tablet 12.5 mg PO DIRECTED 11/22/19 01/23/25 History albuterol sulfate 2.5 mg/0.5 mL 5 mg inhalation Q6H PRN shortness 10/17/20 01/17/25 Rx solution for nebulization of breath or wheezing #30 ea fluticasone furoate 200 1 inh inhalation DIRECTED 11/23/23 01/23/25 History mcg-vilanterol 25 mcg/dose inhalation powder (Breo Ellipta) lisinopril 20 mg tablet 20 mg PO DAILY 08/20/24 01/23/25 History propranolol 10 mg tablet 10 mg PO DAILY 08/20/24 01/23/25 History diphenoxylate-atropine 2.5 1 tablet PO TID #90 tabs 12/04/24 01/23/25 Rx mg-0.025 mg tablet (Lomotil) dicyclomine 20 mg tablet 20 mg PO TID #270 tabs 12/31/24 01/23/25 Rx omeprazole 40 mg capsule,delayed See Rx Instructions .Route 01/09/25 01/23/25 Rx release .COMPLEX #180 caps rosuvastatin 20 mg tablet 20 mg PO DAILY 01/17/25 01/23/25 History Patient hx anesthesia problems: none Family hx anesthesia problems: none Results Review: All pre-operative results and documents have been reviewed as part of the pre-operative evaluation. [facility] Past Medical History Medical History Irritable bowel syndrome (IBS) GERD (gastroesophageal reflux disease) Anxiety Asthma COPD (chronic obstructive pulmonary disease) Bipolar disorder Family History Family History Mother Family history of cardiovascular disease Family history of malignant neoplasm of gastrointestinal tract Depression Hypertension Sibling Hypertension Family history of coronary artery disease Father Alcoholism Hypertension Heart disease Social History Social History Years smoked: 35 Smoking status: Current every day smoker Tobacco type: cigarettes Smoking end date: 01/11/25 Alcohol intake: current Drinks per week: 7 Alcohol use details: states 6-10 daily but because shes on vacation Substance use: never Substance use type: does not use Do You Feel Safe in your Home?: Yes Lack of Transportation: No Lack of Food: Never True Current Housing: I Have Housing Concerned About Future Housing: No Difficulty Paying Gas/Electric Bills: No Difficulty Paying for Meds: No Currently Unemployed: No Education: High School Diploma/GED Difficulty w/ Childcare or Family Care: No Living arrangements: with family Gender identity (if verbalized by the patient): Female Spiritual care concerns: No Anes - Eval Final PreProcedure Day of Procedure 01/23/25 07:04 Patient weight: obese Heart: regular rate and rhythm Lungs: decreased breath sounds Airway: Mallampati scale class II Neurological: alert and oriented Last oral intake: >/= 8 hours ASA classification: III Emergent: no Anesthetic plan: proceed Anesthesia type and monitoring: general ETT and standard monitoring Results Review: All pre-operative results and documents have been reviewed as part of the pre-operative evaluation. Informed Consent: The patient's anesthetic plan and its attendant risks and benefits were discussed with the patient/family/POA. Questions were solicited and answers provided to the satisfaction of the patient/family/POA.
[2025-01-23 07:12] LABS: BEDSIDEPREGUCG Negative (Negative)
--- NOTE | 2025-01-23 07:15 | WPDHPUPDATE1 ---
History and Physical Update Update Date/Time: 01/23/25 07:15 History and Physical has been reviewed, including an updated exam of the patient. There are NO changes in the patient's condition. Risks, benefits, and alternatives have been discussed and questions answered. Patient agrees to proceed with procedure.
[2025-01-23] MEDS: ceFAZolin 2 GM in SODIUM CHLORIDE 0.9% IV 50 ML 100 ML IVPB (07:22)
[2025-01-23] MEDS: BUPIVACAINE/EPINEPHRINE 0.5% 50 ML VIAL 30 ML INFILTRATE (08:19)
--- NOTE | 2025-01-23 10:46 | S_PTH ---
PATIENT: Nieves Gordon LOC: [facility] U#:[id number] AGE/SX: 54/F ROOM: RE01/23/[address]: Evreett Vasquez DO : 1970 BED: DIS: 01/24/2025 SPEC #: [id number] RECD: 01/23/25 13:32 STATUS: AYDE REQ #: [id number] SANGEETHA: 01/23/25 10:[address]: Everett Vasquez DEPT: [facility] Surgical RECD BY: Jackeline An ENTERED: 01/23/25 13:32 SP TYPE: Surgical OTHR DR: Inez New, PA Tissues: A - Hernia Sac Procedures: Gross and Microscopic Level 2 Hematoxylin and Eosin Stain
[2025-01-23] MEDS: HYDROmorphone HCL INJ (*CRX) 1 MG/ML SYR IV PUSH ×2 (11:18→11:32)
--- NOTE | 2025-01-23 11:23 | W.PM.PROC2 ---
Procedure Note - Detailed Date of Procedure 01/23/25 Pre-op Diagnosis hiatal hernia, gerd Post-op Diagnosis Same (Type III paraesophageal hiatal hernia) Procedure Performed Robotic assisted laparoscopic paraesophageal hernia repair with 270 degree fundoplication Surgeon Everett Vasquez, DO Anesthesia General and Local (0.5% bupivicaine with epi) Indications This is a 54-year-old woman who presented with longstanding history of GERD and dysphagia symptoms. She has frequent epigastric pain with nausea. She also has frequent vomiting or regurgitation. She has had prior EGD performed as well as of previous swallow study. A prior CT from several years ago showed evidence of a large hiatal hernia as well. She had tried weight loss and anti reflux measures with minimal signs of improvement. Discussions were made with the patient about further treatment options and decision was made to proceed with robotic assisted laparoscopic paraesophageal hiatal hernia repair with fundoplication. Findings The patient was found to have a large type 3 paraesophageal hiatal hernia. Her upper stomach was protruding up into the hernia including all of her fundus and the upper half of the body of the stomach. The GE junction was approximately 4 cm above the hiatus. Careful mobilization of the hernia sac was performed to reduce the hernia sac and then the esophagus was mobilized out of the mediastinum enough to allow for a tension-free repair. I was able to get at least 3-4 cm distal esophagus within the abdominal cavity prior to repairing the hiatal hernia. The posterior crura was brought together with a 2-0 permanent V lock running suture. I then also placed a suture in the left anterior corner of the hiatus to help with the anterior repair. A 270 degree posterior fundoplication was then performed. The hernia sac was excised and sent to the lab for pathology. Description of Procedure Procedure as well as risks, benefits, and alternatives were discussed with the patient. Written consent was obtained and placed in chart prior to procedure. Patient was brought back to surgical suite. She was placed supine on operating table. Time-out was done to confirm patient and procedure. She was then intubated by the anesthesia department. Her abdomen was prepped and draped in sterile fashion using chlorhexidine prep. 0.5% bupivacaine with epinephrine was infiltrated locally around each area for port placement. An 8 mm incision was made in the left upper quadrant 2 cm inferior to the costal margin in the mid clavicular line. A 5 mm Optiview trocar was then advanced through the abdominal layers under direct visualization. Once inside the abdominal cavity, carbon dioxide insufflation was used to create a pneumoperitoneum. The camera was inserted in the abdomen was inspected. No immediate abnormalities were identified. Another 8 mm camera port was placed about 15 cm inferior to the xiphoid just to the left of midline under direct visualization. An 8 mm port was placed in the anterior axillary line on the left upper quadrant at about the same transverse plane as the camera port. An 8 mm port was placed in the right upper quadrant and another 8 mm AirSeal assist port was placed in right lower quadrant just to the right of the umbilicus. A 5 mm incision was made in the subxiphoid region and the Felicia liver retractor was inserted through this incision into the abdominal cavity to lift up the left lobe of the liver. This was secured in place to the bed of the table. The patient was then placed in 30? reverse Trendelenburg. The robotic arms were secured to the ports and the robotic camera and instruments were inserted. A force bipolar grasper was placed in the right upper quadrant port. The vessel sealer was placed in the midclavicular left upper quadrant port and a Cadiere grasper was placed in the anterior axillary line left upper quadrant port. I then moved over to the robotic console took control of the camera and instruments. A careful thorough exam was performed throughout the abdomen. The stomach was then reduced from within the hiatal hernia. The gastrohepatic ligament was taken down medially using the vessel sealer to identify the right elizabeth. Peritoneum along the medial side of the right elizabeth was then divided using the vessel sealer. This allowed me to enter into the avascular plane and carefully dissect the hernia sac from within the hiatus. I continued the peritoneal incision along the right elizabeth up to the anterior portion of the diaphragm. I then also dissected this far enough posteriorly to identify the crossing fibers of the left elizabeth. I identified the anterior vagus nerve branch and carefully dissected this along with the esophagus. The hernia sac was dissected off of the esophagus and the dissection was carried along to the left elizabeth using the vessel sealer. The peritoneum was dissected off of the left elizabeth all the way down to posterior to the esophagus. I was then able to reduce the hernia sac completely and then created a window posteriorly behind the distal esophagus. A Pocahontas drain was then placed around the esophagus to help with retraction. I then continued the dissection up into the hiatus to allow for enough esophageal length. Once adequate dissection was performed, I was able to identify about 3-4 cm of esophageal length within the abdominal cavity at rest. The hernia sac was then carefully excised from the GE junction using the vessel sealer. I then inspected the posterior crura and chose to close the crura with a 2 0 V lock permanent running suture. This was run from posterior to anterior to allow for a wide enough opening for the esophagus. I then also placed a 2-0 Ethibond simple interrupted suture in the left anterior portion of the hiatus to help bring the hiatus together along the anterior portion. The repair was inspected and appeared secure. I then took down the short gastrics along the fundus the stomach using the vessel sealer. I entered into the lesser sac continued this dissection along the greater curvature and fundus. Then passed the fundus posterior to the esophagus and using a shoe shine technique was able to bring the fundus up around the sides of the esophagus. I chose to perform a 270 degree fundoplication. 2 0 Ethibond sutures were placed along the lateral esophagus along the right side initially. Three sutures were placed between the esophageal muscle fibers and fundus of the stomach to allow a fundoplication length of about 2 cm long. I then performed the same 3 sutures along the left side of the esophagus to the left side of the fundus. The fundoplication was then also pexy to the diaphragm along the posterior crura and left and right side of the esophageal hiatus. The partial fundoplication was inspected and appeared secure. No other abnormalities were noted with the esophagus or stomach. Chidi drain was removed. I then also placed the hernia sac in an Endo-Catch bag and removed it at the right upper quadrant port. The robotic instruments and arms were then removed. The patient was then flattened out and bed and the Felicia liver retractor was then removed. The remaining ports were then removed under direct visualization, and the pneumoperitoneum was released. Skin of the incisions was approximated using 4-0 Monocryl subcuticular sutures. Exofin glue was then applied top. The patient was then awakened from anesthesia, extubated, and transferred to recovery. Estimated Blood Loss 10 Complications No immediate complications Condition Stable Disposition Floor [facility] Billing Surgery - Charge Forward: Surgery Billing
--- NOTE | 2025-01-23 13:26 | ADMGEN ---
This patient, Nieves Gordon, was admitted to [facility] Surg Room 317-02. Patient/family oriented to hospital policies and general routines including ID bracelet, bed and alarms, visiting hours, pain management, procedures, bathroom and other care routines, personal items, smoking policy, room service/diet, and visiting hours. Information on how to activate the Rapid Response Team has been discussed. Patient/Family are encouraged to report perceived risks to care and to ask questions if they do not understand what they are told or what they should do.
[2025-01-23] MEDS: DICYCLOMINE HCL 10 MG CAPSULE 20 MG PO ×2 (13:49→16:59)
[2025-01-23] MEDS: oxyCODONE HCL (*CRX) 5 MG TAB IR PO ×3 (13:49→23:01)
[2025-01-23] MEDS: LACTATED RINGERS 1,000 ML 100 ML IV CONT (13:51)
[2025-01-23] MEDS: metroNIDAZOLE 0.75% TOPICAL GEL 45 GM 1 APPLIC TOPICAL ×2 (16:59→21:15)
[2025-01-23] MEDS: FLUTICASONE/SALMETEROL 230-21 MCG INHALER 1 PUFF 2 PUFF INHALATION (20:30)
[2025-01-23] MEDS: lamoTRIgine 50 MG TABLET PO (21:14)
[2025-01-24 02:24] VITALS: BP 124/55; PULSE 72; RESP 16; TEMP 36.6; O2SAT 93
[2025-01-24 05:47] VITALS: BP 122/66; PULSE 58; RESP 14; TEMP 37.1; O2SAT 92
[2025-01-24 06:11] LABS: Hematocrit 38.1 % (37.0-47.0); Hemoglobin 12.1 g/dL (12.0-15.0); Mean Corpuscular HGB Conc 31.8 g/dl (32-36); Mean Corpuscular Hemoglobin 32.3 pg (26-34); Mean Corpuscular Volume 101.6 fl (80-100); Platelet Count Result 183 k/mm3 (150-375); Red Blood Count 3.75 M/mm3 (4.2-5.4); White Blood Count 8.0 K/mm3 (4.5-10.0)
[2025-01-24 06:38] LABS: Anion Gap 6 mmol/L (4-12); Blood Urea Nitrogen 5 mg/dL (7-17); Calcium 9.0 mg/dL (8.4-10.2); Carbon Dioxide 28 mmol/L (22-30); Chloride 101 mmol/L (98-107); Estimated CRCL calculation 104 ml/min; Estimated Glomerular Filt Rate > 60; Glucose 90 mg/dL (65-110); Potassium 3.7 mmol/L (3.4-5.0); Sodium 135 mmol/L (137-145)
[2025-01-24] MEDS: FLUTICASONE/SALMETEROL 230-21 MCG INHALER 1 PUFF 2 PUFF INHALATION (08:38)
[2025-01-24 08:41] VITALS: O2SAT 94
[2025-01-24] MEDS: metroNIDAZOLE 0.75% TOPICAL GEL 45 GM 1 APPLIC TOPICAL (09:09)
[2025-01-24 09:12] VITALS: PULSE 67
[2025-01-24] MEDS: ROSUVASTATIN 20 MG TABLET PO (09:12)
[2025-01-24] MEDS: DICYCLOMINE HCL 10 MG CAPSULE 20 MG PO ×2 (09:12→12:14)
[2025-01-24] MEDS: lamoTRIgine 50 MG TABLET PO (09:12)
[2025-01-24] MEDS: PROPRANOLOL HCL 10 MG TABLET PO (09:12)
[2025-01-24 09:13] VITALS: PULSE 67
[2025-01-24] MEDS: NEBIVOLOL HCL 5 MG TABLET PO (09:13)
[2025-01-24] MEDS: PANTOPRAZOLE 40 MG TABLET PO (09:13)
[2025-01-24] MEDS: ESCITALOPRAM OXALATE 5 MG TABLET PO (09:14)
[2025-01-24] MEDS: oxyCODONE HCL (*CRX) 5 MG TAB IR PO (09:15)
[2025-01-24 10:12] VITALS: BP 129/73; PULSE 57; RESP 18; TEMP 36.1; O2SAT 96
--- NOTE | 2025-01-24 10:45 | P.PNGS_ITS ---
Progress Note: A&P Assessment and Plan (1) GERD (gastroesophageal reflux disease): Qualifiers: Esophagitis presence: without esophagitis Qualified Code(s): K21.9 - Gastro-esophageal reflux disease without esophagitis Code(s): K21.9 - Gastro-esophageal reflux disease without esophagitis Status: Acute Assessment and Plan: * Doing well on postop day 1. Will advance to full liquid diet. Home after lunch if tolerating diet. * Remain on full liquids for 2 weeks. Follow-up as scheduled. (2) Dysphagia: Qualifiers: Dysphagia type: esophageal phase Qualified Code(s): R13.19 - Other dysphagia Code(s): R13.10 - Dysphagia, unspecified Status: Acute (3) Hiatal hernia: Code(s): K44.9 - Diaphragmatic hernia without obstruction or gangrene Status: Acute Subjective Subjective Date/Time Seen: 01/24/25 10:45 Interval history: Tolerating liquids. No dysphagia or regurgitation. Mostly complaining of gas pains. Passing flatus. Exam GI: Inspection: incision (intact with glue) GI Palp: Yes Soft to palpation, Yes Tenderness to palpation present (GI) (incisional) and No Guarding due to palpation present (GI) Auscultation: normal bowel sounds Objective Data Vital Signs Vital Signs: Vital Signs - 24 hr 01/23/25 11:00 01/23/25 11:15 01/23/25 11:30 Temperature 98.9 F Pulse Rate 91 79 72 Respiratory Rate 20 19 16 Blood Pressure 134/86 120/71 128/80 Pulse Oximetry 94 96 96 Oxygen Delivery Simple Face Mask Simple Face Mask Room Air Oxygen Flow Rate 8 8 Fraction of Inspired Oxygen 01/23/25 11:40 01/23/25 11:45 01/23/25 12:00 Temperature Pulse Rate 64 77 Respiratory Rate 15 17 Blood Pressure 120/68 131/77 Pulse Oximetry 95 95 94 Oxygen Delivery Nasal Cannula Nasal Cannula Nasal Cannula Oxygen Flow Rate 2 2 2 Fraction of Inspired Oxygen 01/23/25 12:35 01/23/25 12:50 01/23/25 13:20 Temperature 98.2 F 97.5 F L 97.5 F L Pulse Rate 66 70 60 Respiratory Rate 18 18 18 Blood Pressure 117/69 118/70 116/70 Pulse Oximetry 96 95 96 Oxygen Delivery Oxygen Flow Rate Fraction of Inspired Oxygen 01/23/25 14:20 01/23/25 15:50 01/23/25 18:28 Temperature 98.7 F 98.7 F Pulse Rate 67 91 Respiratory Rate 20 18 Blood Pressure 116/75 116/74 Pulse Oximetry 99 95 96 Oxygen Delivery Nasal Cannula Oxygen Flow Rate 2 Fraction of Inspired Oxygen 01/23/25 20:00 01/23/25 20:32 01/23/25 21:29 Temperature 98.0 F Pulse Rate 51 L Respiratory Rate 14 Blood Pressure 125/59 L Pulse Oximetry 93 96 Oxygen Delivery Room Air Room Air Oxygen Flow Rate Fraction of Inspired Oxygen 21 01/24/25 02:24 01/24/25 05:47 01/24/25 08:41 Temperature 97.8 F 98.8 F Pulse Rate 72 58 L Respiratory Rate 16 14 Blood Pressure 124/55 L 122/66 Pulse Oximetry 93 92 94 Oxygen Delivery Room Air Oxygen Flow Rate Fraction of Inspired Oxygen 01/24/25 09:12 01/24/25 09:13 01/24/25 10:12 Temperature 97.0 F L Pulse Rate 67 67 57 L Respiratory Rate 18 Blood Pressure 129/73 Pulse Oximetry 96 Oxygen Delivery Oxygen Flow Rate Fraction of Inspired Oxygen Intake/Output Intake/Output: Intake & Output 01/21/25 01/22/25 01/23/25 01/24/25 23:59 23:59 23:59 23:59 Intake Total 1200 620 Balance 1200 620 Meds/Results Medications: Active Medications Generic Name Dose Route Start Last Admin Trade Name Freq PRN Reason Stop Dose Admin Albuterol 5 mg 01/23/25 13:20 Albuterol Sulfate Neb 2.5 Mg/3 Ml Inh INHALATION Q6H PRN shortness of breath or wheezing Albuterol 2 puff 01/23/25 20:00 Albuterol Sulfate (*Sp) Aerosol 1 Puff INHALATION Q6HRT JANNA Dextrose 12.5 gm 01/23/25 14:38 Dextrose 50% 25 Gm/50 Ml Syringe IV PUSH PRN PRN Hypoglycemia Protocol Dicyclomine HCl 20 mg 01/23/25 13:00 01/24/25 09:12 Dicyclomine Hcl 10 Mg Capsule PO 20 mg TID JANNA Administration Diphenhydramine HCl 25 mg 01/23/25 12:43 Diphenhydramine Hcl Inj 50 Mg/Ml Vial IV PUSH Q6H PRN Itching Enoxaparin Sodium 40 mg 01/24/25 09:00 01/24/25 09:04 Enoxaparin 40 Mg/0.4 Ml Syringe SUB-Q Not Given DAILY [facility] Escitalopram Oxalate 5 mg 01/24/25 09:00 01/24/25 09:14 Escitalopram Oxalate 5 Mg Tablet PO 5 mg DAILY JANNA Administration Glucagon 1 mg 01/23/25 14:38 Glucagon For Inj 1 Mg Vial IM PRN PRN Hypoglycemia Protocol Glucose 15 gm 01/23/25 14:38 Glucose Oral Gel 15 Gm Of Glucse In 37.5 Gm Tube PO PRN PRN Hypoglycemia Protocol Dextrose 1,000 mls @ 100 mls/hr 01/23/25 14:38 Dextrose 5% 1,000 Ml IVPB PRN PRN Hypoglycemia Protocol Lamotrigine 100 mg 01/23/25 21:00 01/24/25 09:12 Lamotrigine 100 Mg Tablet PO 100 mg Q12HR JANNA Administration Lamotrigine 50 mg 01/23/25 21:00 01/24/25 09:12 Lamotrigine 50 Mg Tablet PO 50 mg Q12HR JANNA Administration Lisinopril 20 mg 01/24/25 09:00 01/24/25 09:12 Lisinopril 20 Mg Tablet PO 20 mg DAILY JANNA Administration Metronidazole 1 applic 01/23/25 14:30 01/24/25 09:09 Metronidazole 0.75% Topical Gel 45 Gm TOPICAL 1 applic Q12HR JANNA Administration Miscellaneous Information 1 each 01/24/25 00:01 Clarify Albuterol Mdi--Frequency? XX 02/23/25 00:00 CLARIFY [facility] Miscellaneous Information 1 each 01/23/25 00:01 Doxycycline 20mg Bid (Possibly For Periodontitis?) Is Nonformulary. Hold While Hospitalize XX 02/22/25 00:00 CLARIFY [facility] Morphine Sulfate 2 mg 01/23/25 12:43 Morphine Sulfate (*Crx) 2 Mg/Ml Inj IV PUSH Q2H PRN Breakthrough Pain Rated 4-6 or NPO Morphine Sulfate 4 mg 01/23/25 12:43 Morphine Sulfate (*Crx) 4 Mg/Ml Inj IV PUSH Q2H PRN Breakthrough Pain Rated 7-10 or NPO Naloxone HCl 0.1 mg 01/23/25 12:43 Naloxone Hcl 0.4 Mg/Ml Vial IV PUSH Q2M PRN Opiate Reversal Nebivolol 5 mg 01/24/25 09:00 01/24/25 09:13 Nebivolol Hcl 5 Mg Tablet PO 5 mg DAILY JANNA Administration Non-Formulary Medication 20 mg 01/23/25 14:15 Doxycycline Hyclate PO 02/22/25 14:14 Q12H JANNA Oxycodone HCl 2.5 mg 01/23/25 12:43 Oxycodone Hcl (*Crx) 2.5 Mg Tab Ir PO Q4H PRN Pain Rated 4-6 Oxycodone HCl 5 mg 01/23/25 12:43 01/24/25 09:15 Oxycodone Hcl (*Crx) 5 Mg Tab Ir PO 5 mg Q4H PRN Administration Pain Rated 7-10 Pantoprazole Sodium 40 mg 01/24/25 09:00 01/24/25 09:13 Pantoprazole 40 Mg Tablet PO 40 mg QAM JANNA Administration Promethazine HCl 12.5 mg 01/23/25 12:43 Promethazine Hcl 25 Mg/Ml Ampul IV PUSH Q4H PRN Nausea And Vomiting Propranolol HCl 10 mg 01/24/25 09:00 01/24/25 09:12 Propranolol Hcl 10 Mg Tablet PO 10 mg DAILY JANNA Administration Rosuvastatin Calcium 20 mg 01/24/25 09:00 01/24/25 09:12 Rosuvastatin 20 Mg Tablet PO 20 mg DAILY JANNA Administration Fluticasone/Salmeterol 2 puff 01/23/25 20:00 01/24/25 08:38 Fluticasone/Salmeterol 230-21 Mcg Inhaler 1 Puff INHALATION 2 puff Q12HRT JANNA Administration Labs Labs: Laboratory Results - last 24 hr 01/23/25 01/23/25 01/24/25 16:20 20:23 05:51 WBC 8.0 RBC 3.75 L Hgb 12.1 Hct 38.1 MCV 101.6 H MCH 32.3 MCHC 31.8 L RDW 12.7 Plt Count 183 MPV 9.3 Sodium 135 L Potassium 3.7 Chloride 101 Carbon Dioxide 28 Anion Gap 6 BUN 5 L Creatinine 0.64 L Estim Creat Clear Calc 104 Estimated GFR > 60 Glucose 90 POC Capillary Glucose 134 H 133 H Calcium 9.0 01/24/25 07:31 WBC RBC Hgb Hct MCV MCH MCHC RDW Plt Count MPV Sodium Potassium Chloride Carbon Dioxide Anion Gap BUN Creatinine Estim Creat Clear Calc Estimated GFR Glucose POC Capillary Glucose 88 Calcium
== END 2025-01-24 13:00 | disposition home or self-care (01) ==
LOC: ANHSURGERY 05:56 → ANH3MEDSUR 13:06
PROVIDERS: PCP Physician Assistant; Visit Provider Surgery
PROC: 0DV44ZZ Restriction of Esophagogastric Junction, Percutaneous Endoscopic Approach (ICD-10-PCS; CPT 43280; principal; 2025-01-23 07:30)
DX: K21.9 Gastro-esophageal reflux disease without esophagitis (principal); K44.9 Diaphragmatic hernia without obstruction or gangrene; J44.9 Chronic obstructive pulmonary disease, unspecified; I10 Essential (primary) hypertension; K58.9 Irritable bowel syndrome, unspecified; F41.9 Anxiety disorder, unspecified; F31.9 Bipolar disorder, unspecified; F17.210 Nicotine dependence, cigarettes, uncomplicated; E66.9 Obesity, unspecified; Z68.33 Body mass index [BMI] 33.0-33.9, adult; Z79.51 Long term (current) use of inhaled steroids; Z80.0 Family history of malignant neoplasm of digestive organs; Z82.49 Family history of ischemic heart disease and other diseases of the circulatory system
CPT/HCPCS: 43281; S2900; 36415; 80048; 82948; 85027; 88302; 94640; J0690; A9270; J1100; J1171; J1885; J2250; J2405; J2704; J7030; J7120

== ENCOUNTER 2025-04-04 17:55 | Emergency (ER) | payer MEDICARE, MEDICAID, SELFPAY ==
--- NOTE | ~2025-04-04 | CT_ITS ---
Nieves Gordon EXAMINATION: CT abdomen pelvis w con COMPARISON: None HISTORY: abdominal pain TECHNIQUE: Axial images were obtained through the abdomen, pelvis post administration of IV contrast. Oral contrast was also administered. Coronal reconstruction images were obtained from the axial views. CT scan performed using dose optimization techniques including the following automated exposure control; adjustment of mA and/or kV; use of iterative reconstruction technique. Automatic exposure control was used to reduce radiation dose. Permanent radiation dose record is archived to PACS. FINDINGS: CT abdomen: LUNG BASES: Probable fibrotic changes of the uterus with the largest in the anterior interbody 4 x 4 cm, outpatient pelvic ultrasound suggested. LIVER: Left lobe liver complex cyst 2.5 x 2 cm with subcentimeter probable additional liver cysts. Portal vein patent. No intrahepatic biliary duct dilatation. SPLEEN: Unremarkable. KIDNEYS: Right Kidney: Right kidney midpole renal calculus 4 x 5 mm, no hydronephrosis. Left Kidney: Left kidney midpole renal calculus 3 x 3 mm, no hydronephrosis. ADRENAL GLANDS: Unremarkable. PANCREAS: Unremarkable. GALLBLADDER/BILIARY: Unremarkable. No biliary dilatation. STOMACH AND ESOPHAGUS: Small hiatal hernia. Thickening of the esophagus may represent esophagitis. BOWEL/MESENTERY: Moderate fecal content, no colitis or diverticulitis. Appendix normal. Mesentery normal. Small bowel normal. ADENOPATHY/RETROPERITONEUM: No lymphadenopathy. AORTA/VASCULATURE: Normal caliber aorta. FREE FLUID OR FREE AIR: No free fluid.. CT pelvis: SOLID ORGANS/REPRODUCTIVE: Unremarkable. BLADDER: Circumferential thickening of the bladder wall noted. OSSEOUS STRUCTURES: No acute osseous abnormality.No suspicious lesions. OVERLYING SOFT TISSUES: Unremarkable. IMPRESSION: 1. Mild cystitis. Bilateral renal calculi. No hydronephrosis. 2. Incidental findings above Reviewed, dictated and finalized at location P.
--- NOTE | ~2025-04-04 | XR_ITS ---
Examination: XR chest 2V Clinical History: shortness of breath, hx COPD Comparison: 07/27/2024 Technique: PA and Lateral Findings: Cardiomediastinal silhouette normal size and configuration. Lungs clear. No acute bony abnormality. IMPRESSION: 1. No acute cardiopulmonary findings. Reviewed, dictated and finalized at location R.
[2025-04-04 17:59] VITALS: BP 146/88; PULSE 88; RESP 14; TEMP 36.6; O2SAT 97
[2025-04-04 20:52] VITALS: BP 115/60; PULSE 66; RESP 15; O2SAT 95
--- OUTSIDE RECORDS SUMMARY | 2025-04-04 20:54 | XMS_ITS | Clinical Summary ---
Author Organization 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
--- OUTSIDE RECORDS SUMMARY | 2025-04-04 20:54 | XMS_ITS | Encounter Summary ---
Author Organization [facility] Care Team Providers Care Broadband Technician Name Role Phone Inez New Primary Care Provider [phone] Candido Guerin MD Unavailable [phone] Anthony Diez MD Unavailable [phone] Encounter Details Date Type Department Care Team (Latest Contact Info) Description 09/26/2015 Orders Only [facility] CLINCONV ProviderVishal MD [address] [place] [id number] Social History Tobacco Use Types Packs/Day Years Used Date Smoking Tobacco: Never Assessed Comments Unknown Sex and Gender Information Value Date Recorded Sex Assigned at Not on file 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
--- OUTSIDE RECORDS SUMMARY | 2025-04-04 20:54 | XMS_ITS | Encounter Summary ---
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 Gender Identity Not on file Sexual Orientation Not on file Occupation Industry Job Start Date Job End Date Disabled Not on file Not on file Not on file documented as of this encounter Plan of Treatment Not on file documented as of this encounter Procedures Procedure Name Priority Date/Time Associated Diagnosis Comments SCAN - LABS 01/18/2025 documented in this encounter Results * SCAN - LABS (01/18/2025) us Provider Scanning Final Result documented in this encounter Visit Diagnoses Not on filedocumented in this encounter Care Teams Meat Cutting Block Repairer Relationship Specialty Start Date End Date Inez New [place] [address] [place] [address] PCP - General 09/14/17 Candido Guerin MD [address] [place] [address] Consulting Physician Gastroenterology 05/04/23 Anthony Diez MD [address] [place] [address] Consulting Physician Rheumatology 09/18/24 documented as of this encounter
--- OUTSIDE RECORDS SUMMARY | 2025-04-04 20:54 | XMS_ITS | Encounter Summary ---
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
--- OUTSIDE RECORDS SUMMARY | 2025-04-04 20:54 | XMS_ITS | Encounter Summary ---
Author Organization [facility] Facility Care Team Providers Care Patient Care Technician Name Role Phone Inez New Primary Care Provider [phone]- [phone] Candido Guerin MD Unavailable [phone] Anthony Diez MD Unavailable [phone] Encounter Details Date Type Department Care Team (Latest Contact Info) Description 10/01/2016 Orders Only [facility] ProviderVishal MD [address] [place] [address] Social History Tobacco Use Types Packs/Day Years Used Date Smoking Tobacco: Never Assessed Comments Unknown Sex and Gender Information Value Date Recorded Sex Assigned at Not on file 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
--- OUTSIDE RECORDS SUMMARY | 2025-04-04 20:54 | XMS_ITS | Encounter Summary ---
Author Organization [facility] Facility Care Team Providers Care Senior Climate Advisor Name Role Phone Inez New Primary Care Provider [phone]- [phone] Candido Guerin MD Unavailable [phone] Anthony Diez MD Unavailable [phone] Encounter Details Date Type Department Care Team (Latest Contact Info) Description 10/07/2017 Orders Only [facility] ProviderVishal MD [address] [place] [address] Social History Tobacco Use Types Packs/Day Years Used Date Smoking Tobacco: Never Assessed Comments Unknown Sex and Gender Information Value Date Recorded Sex Assigned at Not on file 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
--- OUTSIDE RECORDS SUMMARY | 2025-04-04 20:55 | XMS_ITS | Encounter Summary ---
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
--- OUTSIDE RECORDS SUMMARY | 2025-04-04 20:55 | XMS_ITS | Encounter Summary ---
Author Organization [facility] Healthcare Address [address] [place] [address] Care Team Providers Care Boat Worker Name Role Phone Inez New Primary Care Provider + [phone] Candido Guerin MD Unavailable [phone] Anthony Diez MD Unavailable [phone] Encounter Details Date Type Department Care Team (Late st Contact Info) Description 02/22/2025 Results Follow-Up [facility] Family [facility] [address] [place] [address] Inez New PA [address] [place] [address] Urine culture Urine, clean voided Social History Tobacco Use Types Packs/Day Years [...] on file 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 PSR read provider's note regarding her urine lab results. When asked ifpt is feeling better, pt said yes but she is still experiencing an urge sensation. Pt is drinking alot of water but doesn't feel she is producing much urine considering the how strong the urge to urinate is. Pt said if symptoms worsen over the weekend, she will call for advice. documented in this encounter Plan of Treatment Not on file documented as of this encounter Visit Diagnoses Not on filedocumented in this encounter Care Teams Boat Worker Relationship Specialty Start Date End Date Inez New PA [address] [place] [address] PCP - General 09/14/17 Candido Guerin MD [address] [place] [address] Consulting Physician Gastroenterology 05/04/23 Anthony Diez MD [address] [place] [address] Consulting Physician Rheumatology 09/18/24 documented as of this encounter
--- OUTSIDE RECORDS SUMMARY | 2025-04-04 20:56 | XMS_ITS | Encounter Summary ---
Author Organization [facility] Healthcare Address [address] [place] [address] Care Team Providers Care Cans Vacuum Tester Name Role Phone Inez New Primary Care Provider [phone] Candido Guerin MD Unavailable [phone] Anthony Diez MD Unavailable [phone] Encounter Details Date Type Department Care Team (Late st Contact Info) Description 11/02/[address] 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
--- OUTSIDE RECORDS SUMMARY | 2025-04-04 20:56 | XMS_ITS | Patient Health Record ---
Author Organization [facility] [employer] [facility] Address [address] [facility] [address] [place] [address] Care Team Providers Care Slate Picker Name Role Phone Rachell New PA-C Primary Care Provider Unav Kacy Hunt Unavailable [phone] Vitaliy Nelson Ale Unavailable [phone] Polina Hernandez Unavailable [phone] Allergies No Known Allergies Results Component Value Reference Range Notes UDT Reviewed date:07/31/2024 03:17:21 PM Interpretation: Performing Lab: Notes/Report: THC N 0 - 50 ng/ml Cocaine N 0 - 300 ng/ml Amphetamine N 0 - 1000 ng/ml Buprenorphine (BUP) N 0 - 10 ng/ml Secobarbital (Bar) N 0 - 300 ng/ml Oxazepam (BZO) N 0 - 300 ng/ml 9-ujiyhrwsme-2,8-umugsnvb-1,3-diphenylpyrrolidine (JOHN P) N 0 - 300 ng/ml Methamphetamine (MET) N 0 - 1000 ng/ml Methylenedioxymethamphetamine (MDMA) N 0 - 500 ng/ml Morphine (MOP 300/CWN4205) N 0 - 300 ng/ml Methadone (MTD) N 0 - 300 ng/ml Phencyclidine (PCP) N 0 - 25 ng/ml Nortriptyline (TCA) N 0 - 1000 ng/ml Oxycodone N 0 - 300 ng/ml x N 0 - 300 ng/ml Reason For Referral No Information Medications Medication SIG (Take, Route, Frequency, Duration) Notes Start Date End Date Status Nebivolol HCl 5 MG Tablet TAKE 1 TABLET (5 MG TOTAL) BY MOUTH DAILY. Oral; Duration: 30 Days Active Rosuvastatin Calcium 20 MG Tablet Oral 11/22/2023 Active Meloxicam 15 MG Tablet Oral 11/22/2023 Active ProAir HFA 108 (90 Base) MCG/ACT Aerosol Solution Inhalation 11/22/2023 Active Symbicort 160-4.5 MCG/ACT Aerosol Inhalation 11/22/2023 Active FLUoxetine HCl 40 MG Capsule TAKE 1 CAPSULE BY MOUTH EVERY DAY FOR TOTAL DOSE OF 60 MG DAILY; Duration: 84 Active Cholecalciferol 25 MCG (1000 UT) Capsule Oral 11/22/2023 Active Breo Ellipta 200-25 MCG/INH Aerosol Powder Breath Activated Inhalation 11/22/2023 Active Omeprazole 40 MG Capsule Delayed Release Oral 11/22/2023 Active Fluticasone Propionate Diskus 50 MCG/ACT Aerosol Powder Breath Activated Inhalation *Reorder from Plain Vanilla for eRx and Interaction Alerts* 11/22/2023 Active Cetirizine HCl 10 MG Tablet Oral 11/22/2023 Active Albuterol Sulfate (2.5 MG/3ML) 0.083% Nebulization Solution Inhalation 11/22/2023 Active metroNIDAZOLE 0.75 % Gel 1 application Externally Twice a day Active lamoTRIgine 200 mg Tablet TAKE 1 TABLET BY MOUTH TWICE A DAY Active [place] Carbonate ER 300 mg Tablet Extended Release 1 tablet at bedtime oral daily; Duration: 28 days Active metFORMIN HCl 500 MG Tablet 1 tablet with a meal Orally Once a day Active hydrOXYzine HCl 25 MG Tablet TAKE 1 TABLET BY MOUTH TWICE A DAY NEEDED; Duration: 84 Active Cyclobenzaprine HCl 10 MG Tablet Oral 11/22/2023 Not-Taking Diclofenac Sodium 1% Gel Transdermal 11/22/2023 Not-Taking lamoTRIgine 200 mg Tablet 1 tablet oral twice a day; Duration: 28 days Active Dexilant 60 MG Capsule Delayed Release Oral 11/22/2023 Not-Taking FLUoxetine HCl 20 MG Capsule 1 CAPSULE ORALLY ONCE A DAY TOTAL DAILY DOSE 60 MG; Duration: 28 days Active HYDROcodone-Acetamino phen 5-325 MG Tablet Oral 11/22/2023 Not-Rene ing Naproxen 375 MG Tablet Oral 11/22/2023 Not-Taking Propranolol HCl 10 MG Tablet 1 tablet on an empty stomach Orally twice a day; Duration: 28 days Active Immunizations Vaccine Route Administration Date Status Comme nts Tdap Unknown 06/30/2017 Administered Pfizer Biontech Covid-19 Vaccine 2nd dose Unknown 10/30/2020 Administered Pfizer Biontech Covid-19 Vaccine 2nd dose Unknown 11/25/2020 Administered Novel [id number], preservative free Unknown 06/10/2020 Administered Novel [id number], preservative free Unknown 04/06/2021 Administered Influenza, unspecified formulation Unknown 07/02/2019 Administered Influenza, quadrivalent, split virus Unknown 05/14/2019 Administered Source VFC Code: V00 - VFC eligibility not determined/unknown Influenza, injectable, MDCK, preservative free Unknown 05/14/2019 Administered Social History Tobacco Use: Social History Observation Description Date Details (start date - stop date) Former Smoker NA - NA Sex Assigned At : Social History Observation Description Sex Assigned At Female Social History Miscellaneous: Social Info Question Answer Notes Advance Care Planning Are you your own decision-maker Yes Do you have Power of Credit Operations Processor for Health or [facility]? No Safety issues: Are there any firearms in the house? No Social History Social Info Question Answer Notes Household: Marital Status: Number of Adults in household: 2 Number of Children in Household: 0 Level of Education: Finished High School Household: Social Info Question Answer Notes Household Marital status: living with significant o ther Number of adults in household: 2 Drug/Alcohol: Social Info Question Answer Notes Drugs Have you used drugs other than those for medical reasons in the past 12 months? No AUDIT-C (Standard) Did you have a drink containing alcohol in the past year? No Caffeine Intake: none Tobacco Use: Social Info Question Answer Notes Tobacco Control (Standard) Tobacco use: Former smoker How often do you smoke cigarettes? Some days, but not every day How many cigarettes a day do you smoke? 6-10 How soon after you wake up do you smoke your first cigarette? After 60 minutes Are you interested in quitting? Thinking about quitting How long has it been since you last smoked? Less than 1 month Additional Details Category Social Info Options Details Miscellaneous: Occupation: N/A Migrated Social History Migrated Social History Alcohol Intake: Occasional 09/02/2020,Tobacco Years: Current every day smoker 11/22/2023,Smoking Status: 0 08/22/2023 Drug/Alcohol: Do you smoke marijuana? No Do you drink alcohol? Occasional ly, on weekends Section Notes: Drinks ETOH on weekends. Denies [...] NoDo you have a medical power of cook relief?: NoPublic Health and TravelHave you been to [...] NoDo you have a medical power of cook relief?: NoPublic Health and TravelHave you been to [...] NoDo you have a medical power of cook relief?: NoPublic Health and TravelHave you been to [...] dependence Drinks ETOH on weekends. Den ies dependence. [...] NoDo you have a medical power of cook relief?: NoPublic Health and TravelHave you been to [...] NoDo you have a medical power of cook relief?: NoPublic Health and TravelHave you been to [...] NoDo you have a medical power of cook relief?: NoPublic Health and TravelHave you been to [...] NoDo you have a medical power of cook relief?: NoPublic Health and TravelHave you been to [...] NoDo you have a medical power of cook relief?: NoPublic Health and TravelHave you been to [...] NoDo you have a medical power of cook relief?: NoPublic Health and TravelHave you been to [...] depressed bipolar I disorder without psychotic features (60419786) Bipolar disorder, current episode depressed, severe, without psychotic features (F31.4) 4 Active confirmed Problem Bipolar disorder (14538037) Bipolar disorder, unspecified (F31.9) Active confirmed Problem Generalized anxiety disorder (38304327) Generalized anxiety disorder (F41.1) 4 Active confirmed Problem Posttraumatic stress disorder (62412465) Post-traumatic stress disorder, chronic (F43.12) Active confirmed Problem Borderline personality disorder (39228135) Borderline personality disorder (F60.3) 4 Active confirmed Problem Obstructive sleep apnea syndrome (disorder) (66371870) Obstructive sleep apnea (adult) (pediatric) (G47.33) 4 Active confirmed Problem Tardive dyskinesia (810033314) Tardive dyskinesia (G24.01) Active confirmed Problem Tobacco use (452362294) Nicotine use (Z72.0) Active confirmed Problem Essential hypertension (55479026) Benign essential HTN (I10) Active confirmed Vital Signs Heart Rate 73 /min 02/08/2025 Height-cm 170.18 cm 02/08/2025 Blood pressure diastolic 71 mm Hg 02/08/2025 Weight-kg 95.62 kg 02/08/2025 Height 67.00 in 02/08/2025 Blood pressure systolic 105 mm Hg 02/08/2025 Weight 210.8 lbs 02/08/2025 BMI 33.01 kg/m2 02/08/2025 Encounters Encounter Location Date Provider Diagnosis [facility] [employer] [facility] [address] [place] [address] 08/23/2024 Kacy Marroquin [facility], [facility] [address] [place] [address] 12/28/2024 Kacy Marroquin [facility] [employer], [facility] [address] [place] [address] 03/08/2025 Kacy Marroquin Generalized anxiety disorder F41.1 [facility] [address] [place] [address] 04/24/2024 Polina Hernandez [facility] [employer], [facility] [address] [place] [address] 05/24/2024 [facility] [employer] [facility] [address] [place] [address] 06/08/2024 Kacy Marroquin [facility] [employer], [facility] [address] [place] [address] 06/11/2024 Kacy Marroquin Bipolar disorder, current episode depressed, severe, without psychotic features F31.4 ; Tardive dyskinesia G24.01 and Generalized anxiety disorder F41.1 [facility] [employer] [facility] [address] [place] [address] 06/18/2024 Kacy Marroquin [facility], [facility] [address] [place] [address] 08/01/2024 Kacy Marroquin [facility] [employer], [facility] [address] [place] [address] 08/03/2024 Kacy Marroquin Generalized anxiety disorder F41.1 [facility] [employer], [facility] [address] [place] [address] 08/22/20[facility] [address] [place] [address] 08/24/2024 [facility] [address] [place] [address] 10/15/2024 Kacy [facility], [facility] [address] [place] [address] 12/25/2024 Kacy [facility], [facility] [address] [place] [address] 02/08/2025 Ale Nelson Borderline personali ty disorder F60.3 ; Bipolar disorder, current episode depressed, severe, without psychotic features F31.4 ; Post-traumatic stress disorder, chronic F43.12 and Generalized anxiety disorder F41.1 [facility], [facility] [address] [place] [address] 04/30/2024 Ale Nelson Borderline personali ty disorder F60.3 ; Bipolar disorder, current episode depressed, severe, without psychotic features F31.4 ; Generalized anxiety disorder F41.1 and Post-traumatic stress disorder, chronic F43.12 [facility], [facility] [address] [place] [address] 05/24/2024 Ale Nelson Borderline personali ty disorder F60.3 ; Severe episode of recurrent major depressive disorder, without psychotic features F33.2 and Post-traumatic stress disorder, chronic F43.12 [facility], [facility] [address] [place] [address] 06/19/2024 Ale Nelson Generalized anxiety disorder F41.1 ; Borderline personality disorder F60.3 and Post-traumatic stress disorder, chronic F43.12 [facility], [facility] [address] [place] [address] 07/31/2024 Ale Nelson Bipolar disorder, current episode depressed, severe, without psychotic features F31.4 ; Generalized anxiety disorder F41.1 and Borderline personality disorder F60.3 [facility], [facility] [address] [place] [address] 08/16/2024 Ale Nelson Generalized anxiety disorder F41.1 ; Bipolar disorder, current episode depressed, severe, without psychotic features F31.4 ; Post-traumatic stress disorder, chronic F43.12 and Borderline personality disorder F60.3 [facility] [id number] [address] 09/03/2024 Ale Nelson Post-traumatic stres s disorder, chronic F43.12 ; Bipolar disorder, current episode depressed, severe, without psychotic features F31.4 ; Generalized anxiety disorder F41.1 and Borderline personality disorder F60.[address] [address] 11/16/2024 Ale Nelson Bipolar disorder, current episode depressed, severe, without psychotic features F31.4 ; Post-traumatic stress disorder, chronic F43.12 ; Borderline personality disorder F60.3 ; Generalized anxiety disorder F41.1 and Encounter for screening for depression Z13.[address] [address] 11/19/2024 Kacy Marroquin Bipolar disorder, current episode depressed, severe, without psychotic features F31.4 ; Generalized anxiety disorder F41.1 ; Post-traumatic stress disorder, chronic F43.12 ; Borderline personality disorder F60.3 ; Obstructive sleep apnea (adult) (pediatric) G47.33 ; Nicotine use Z72.0 ; Benign essential HTN I10 and Encounter for screening for depression Z13.[address] [address] 12/24/2024 Kacy Marroquin Bipolar disorder, current episode depressed, severe, without psychotic features F31.4 ; Generalized anxiety disorder F41.1 ; Post-traumatic stress disorder, chronic F43.12 ; Borderline personality disorder F60.3 ; Nicotine use Z72.0 ; Obstructive sleep apnea (adult) (pediatric) G47.33 ; Benign essential HTN I10 and Encounter for screening for depression Z13.31 [facility] [email or web address] [address] 09/19/2024 Kacy Marroquin Generalized anxiety disorder F41.1 ; Borderline personality disorder F60.3 ; Post-traumatic stress disorder, chronic F43.12 ; Bipolar disorder, current episode depressed, severe, without psychotic features F31.4 ; Benign essential HTN I10 ; Obstructive sleep apnea (adult) (pediatric) G47.33 ; Nicotine use Z72.0 and Encounter for screening for depression Z13.31 [facility] [employer] [facility] [address] [facility] [address] [place] [address] 08/24/2024 Kacy Marroquin Generalized anxiety disorder F41.1 ; Bipolar disorder, current episode depressed, severe, without psychotic features F31.4 ; Post-traumatic stress disorder, chronic F43.12 ; Tardive dyskinesia G24.01 ; Borderline personality disorder F60.3 ; Nicotine dependence with current use F17.200 ; Benign essential HTN I10 and Obstructive sleep apnea (adult) (pediatric) G47.33 [facility] [employer] [facility] [address] [facility] [address] [place] [address] 07/31/2024 Kacy Marroquin Bipolar disorder, current episode depressed, severe, without psychotic features F31.4 ; Generalized anxiety disorder F41.1 ; Post-traumatic stress disorder, chronic F43.12 ; Tardive dyskinesia G24.01 ; Borderline personality disorder F60.3 and Obstructive sleep apnea (adult) (pediatric) G47.33 [facility] [employer] [facility] [address] [facility] [address] [place] [address] 02/08/2025 Kacy Marroquin Generalized anxiety disorder F41.1 ; Bipolar disorder, current episode depressed, severe, without psychotic features F31.4 ; Borderline personality disorder F60.3 and Obstructive sleep apnea (adult) (pediatric) G47.33 [facility] [employer] [facility] [address] [facility] [address] [place] [address] 08/28/2024 Ale Stern personali ty disorder F60.3 ; Bipolar disorder, current episode depressed, severe, without psychotic features F31.4 ; Post-traumatic stress disorder, chronic F43.12 and Generalized anxiety disorder F41.1 [facility] [employer] [facility] [address] [place] [address] 06/01/2024 Kacy Marroquin Bipolar disorder, current episode depressed, severe, without psychotic features F31.4 ; Generalized anxiety disorder F41.1 ; Post-traumatic stress disorder, chronic F43.12 ; Tardive dyskinesia G24.01 ; Borderline personality disorder F60.3 ; Benzodiazepine dependence F13.20 and Obstructive sleep apnea (adult) (pediatric) G47.33 Assessments Encounter Date Diagnosis (ICD Code) Assessment Notes Treatment Notes Treatment Clinical Notes Section Notes 04/30/2024 Bipolar disorder, current episode depressed, severe, without psychotic features (ICD-10 - F31.4) Family Stress and Interpersonal Conflicts - Assessment: Nieves is experiencing family stress and interpersonal conflicts. - Plan: - Encourage Nieves to set boundaries with family members and [...] in relation to diabetes management. - Encourage Nieves to reduce alcohol intake and consider attending support groups such as Alcoholics Anonymous. - Monitor liver function tests and consider referral to document preparation specialist if needed. Sleep Apnea - Assessment: Patient reports being tired all the time and is scheduled for sleep study. - Plan: - Schedule sleep study to confirm diagnosis and determine appropriate treatment. - Encourage Nieves to maintain a regular sleep schedule and [...] neighbor for companionship. - Plan: - Encourage Nieves to maintain connections with supportive friends and neighbors. - Recommend exploring local support groups or community resources for additional social support. Each plan component addresses specific issues identified during the assessment, focusing on Nieves's overall health, mental well-being, and social support needs. 04/30/2024 Borderline personality disorder (ICD-10 - F60.3) Family Stress and Interpersonal Conflicts - Assessment: Nieves is experiencing family stress and interpersonal conflicts. - Plan: - Encourage Nieves to set boundaries with family members and [...] in relation to diabetes management. - Encourage Nieves to reduce alcohol intake and consider attending support groups such as Alcoholics Anonymous. - Monitor liver function tests and consider referral to document preparation specialist if needed. Sleep Apnea - Assessment: Patient reports being tired all the time and is scheduled for sleep study. - Plan: - Schedule sleep study to confirm diagnosis and determine appropriate treatment. - Encourage Nieves to maintain a regular sleep schedule and [...] neighbor for companionship. - Plan: - Encourage Nieves to maintain connections with supportive friends and neighbors. - Recommend exploring local support groups or community resources for additional social support. Each plan component addresses specific issues identified during the assessment, focusing on Nieves's overall health, mental well-being, and social support needs. 05/24/2024 Borderline personality disorder (ICD-10 - F60.3) Anxiety and Clonazepam Use - Assessment: Nieves has been experiencing anxiety - Plan: - Continue current prescription - Recommend trying anxiety management techniques such as tapping and cognitive approaches to anxiety as discussed during the session. Sleep Apnea and CPAP Use - Assessment: Nieves reports discomfort and claustrophobia with CPAP use, which has impacted her compliance with the treatment for sleep apnea. She has tried both the nose cannula and face mask but discontinued use after 30 days due to discomfort. - Plan: - Schedule a follow-up sleep study to reassess Nieves's needs and explore alternative treatments. - Consider the possibility of an implant if CPAP continues to be intolerable. - Nieves mentioned that if the CPAP doesn't work, she will consider getting an implant at [facility]. 05/24/2024 Severe episode of recurrent major depressive disorder, without psychotic features (ICD-10 - F33.2) Anxiety and Clonazepam Use - Assessment: Nieves has been experiencing anxiety - Plan: - Continue current prescription - Recommend trying anxiety management techniques such as tapping and cognitive approaches to anxiety as discussed during the session. Sleep Apnea and CPAP Use - Assessment: Nieves reports discomfort and claustrophobia with CPAP use, which has impacted her compliance with the treatment for sleep apnea. She has tried both the nose cannula and face mask but discontinued use after 30 days due to discomfort. - Plan: - Schedule a follow-up sleep study to reassess Nieves's needs and explore alternative treatments. - Consider the possibility of an implant if CPAP continues to be intolerable. - Nieves mentioned that if the CPAP doesn't work, she will consider getting an implant at [facility]. 06/19/2024 Generalized anxiety disorder (ICD-10 - F41.1) [...] a day [No changes to existing content] 08/24/2024 Generalized anxiety disorder (ICD-10 - F41.1) [...] in 4 weeks, sooner if concerns arise 06/19/2024 Borderline personality disorder (ICD-10 - F60.3) [...] a day [No changes to existing content] 08/03/2024 Generalized anxiety disorder (ICD-10 - F41.1) 11/16/2024 Bipolar disorder, current episode depressed, severe, without psychotic features (ICD-10 - F31.4) 11/16/2024 Post-traumatic stress disorder, chronic (ICD-10 - F43.12) 11/19/2024 Bipolar disorder, current episode depressed, severe, without psychotic features (ICD-10 - F31.4) 11/19/2024 Generalized anxiety disorder (ICD-10 - F41.1) taking propanolol as needed currently no refill needed 02/08/2025 Bipolar disorder, current episode depressed, severe, without psychotic features (ICD-10 - F31.4) 02/08/2025 Borderline personality disorder (ICD-10 - F60.3) 12/24/2024 Bipolar disorder, current episode depressed, severe, without psychotic features (ICD-10 - F31.4) I'm considering augmenting therapy with a new medication or starting/switchi ng to a new medication Medication considered [id number] Sertraline (Zoloft), CYP2D5 Aripiprazole (Abilify), CYP2D6 Brexpiprazole [...] propanolol as needed currently no refill needed 09/19/2024 Generalized anxiety disorder (ICD-10 - F41.1) Mood Disorder Assessment: Patient reports ongoing depressive symptoms. Recent restart of lithium has shown some improvement. Potential exacerbation due to psychosocial stressors, including son in rehab and pending medical diagnoses. Discussed options, would like to keep current regimen the same and follow up after medical concerns are sorted out. Plans to discuss medications with architectural technician as upcoming appointment Plan: - Continue lithium 300mg daily - Continue fluoxetine 40mg daily - Continue lamotrigine 200mg twice daily - Monitor for effectiveness and side effects - Reassess need for medication adjustments after cardiology consultation Anxiety Disorder Assessment: Patient experiences ongoing anxiety with panic attacks, particularly during car rides. Reports some improvement with current management. Using propranolol and qmoy-bwk-hqdytn r anxiety patches (Blaise patches with Ashwagandha and [...] use - Consider prazosin for nightmares, pending architectural technician approval due to potential blood pressure effects [...] and blood pressure at home - Obtain architectural technician's input on psychiatric medications that may affect [...] 6 weeks, sooner if concerns arise 09/03/2024 Bipolar disorder, current episode depressed, severe, without psychotic features (ICD-10 - F31.4) 09/03/2024 Post-traumatic stress disorder, chronic (ICD-10 - F43.12) 08/28/2024 Bipolar disorder, current episode depressed, severe, without psychotic features (ICD-10 - F31.4) 08/28/2024 Borderline personality disorder (ICD-10 - F60.3) 08/16/2024 Bipolar disorder, current episode depressed, severe, without psychotic features (ICD-10 - F31.4) 08/16/2024 Generalized anxiety disorder (ICD-10 - F41.1) 07/31/2024 [...] 4 weeks, sooner if concerns arise 07/31/2024 Bipolar disorder, current episode depressed, severe, without psychotic features (ICD-10 - F31.4) 07/31/2024 Generalized anxiety disorder (ICD-10 - F41.1) 06/01/2024 Bipolar disorder, current episode depressed, severe, [...] agrees to idea of increasing fluoxetine, recommended olanzapine/fluo xetine combination: 6-12 mg olanzapine/25-5 0 mg fluoxetine. Plan: - Increase Fluoxetine (Prozac) [...] this possibility to help bridge during medication changes.However , after more indepth review of previous encounters, [...] agrees to idea of increasing fluoxetine, recommended olanzapine/fluo xetine combination: 6-12 mg olanzapine/25-5 0 mg fluoxetine. Plan: - Increase Fluoxetine (Prozac) [...] this possibility to help bridge during medication changes.However , after more indepth review of previous encounters, multiple instances occured indicating misuse, it was determined by prior providers they would not continue to prescribed, which is appriopiate and I am in agreeance. - follow up in 4 weeks 06/11/2024 Bipolar disorder, current episode depressed, severe, without psychotic features (ICD-10 - F31.4) 03/08/2025 Generalized anxiety disorder (ICD-10 - F41.1) 02/08/2025 Bipolar disorder, current episode depressed, severe, without psychotic features (ICD-10 - F31.4) 02/08/2025 Generalized anxiety disorder (ICD-10 - F41.1) 02/08/2025 Borderline personality disorder (ICD-10 - F60.3) 06/11/2024 Tardive dyskinesia (ICD-10 - G24.01) 06/01/2024 Post-traumatic stress disorder, chronic (ICD-10 - [...] agrees to idea of increasing fluoxetine, recommended olanzapine/fluo xetine combination: 6-12 mg olanzapine/25-5 0 mg fluoxetine. Plan: - Increase Fluoxetine (Prozac) [...] this possibility to help bridge during medication changes.However , after more indepth review of previous encounters, multiple instances occured indicating misuse, it was determined by prior providers they would not continue to prescribed, which is appriopiate and I am in agreeance. - follow up in 4 weeks 07/31/2024 Borderline personality disorder (ICD-10 - F60.3) 08/28/2024 Post-traumatic stress disorder, chronic (ICD-10 - [...] stress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 for potential gastrointestinal issues or other underlying causes of vomiting. Each section addresses a specific problem area and outlines a corresponding plan for treatment and support. 12/24/2024 Hamilton Rucker, a patient with a history of diabetes [...] - Lamotrigine 200 mg twice daily - [place] 300 mg at bedtime - Fluoxetine 40 [...] 12/24/2024 Next Appt Details Provider Name:Ale Nelson, 04/25/2025 08:00:00 AM, [address], [place] [address], [place], [address], Provider Name:Kacy brown, 05/03/2025 09:15:00 AM, [address], [facility], [place], [address], Provider Name:Ale Nelson, 05/14/2025 08:00:00 AM, [address], [place] [address], [place], [address], Provider Name:Ale Nelson, 06/14/2025 10:00:00 AM, [address], [place] [address], [place], [address], Insurance Providers Payer Name Payer Address Payer Phone Subscriber Number Group Number Insured Name Patient Relationship to Insured Coverage Start Date Coverage End Date [facility] [address] [place] [phone] [id number] NIEVES RUCKER Self - patient is the insured [place] [address] [address] [place] [address] [id number] NIEVES RUCKER Self - patient is the insured [...]
--- NOTE | 2025-04-04 21:18 | ECG_ITS ---
Test Date: 2025-04-04 21:28:48 Measurements Intervals [place] Rate: 65 P: 24 MN: 172 QRS: -26 QRSD: 105 T: 21 QT: 407 QTc: 423 Interpretive Statements SINUS RHYTHM POSSIBLE RIGHT ATRIAL ENLARGEMENT BORDERLINE R WAVE PROGRESSION, ANTERIOR LEADS BORDERLINE T WAVE ABNORMALITY- INFERIOR LEADS BASELINE ARTIFACT- I, II, AVR, AVL, AVF, V1-V2 BORDERLINE ECG Compared to ECG 07/27/2024 07:20:38 NO SIGNIFICANT CHANGE Electronically Signed On 04-05-2025 06:12:10 CDT by Sher Lui D.O.
--- NOTE | 2025-04-04 21:19 | ED.CHESTPAIN ---
HPI - Chest Pain General Chief Complaint: Abdominal Pain Stated Complaint: abdominal pain Time Seen by Provider: 04/04/25 20:12 History of Present Illness HPI narrative: Patient is a 54-year-old female who presents to the ER with complaints of abdominal pain and left-sided chest pain. She reports her symptoms started approximately 1 week ago. Patient reports she had hiatal hernia surgery on January 23, 2025. She reports she has been distended since then but feels as though her symptoms have worsened recently. Patient describes the abdominal pain as starting below her midsternal area, but it radiates down her abdomen and under her left breast. She also endorses slight shortness of breath recently. Patient endorses a history of COPD, depression and anxiety. She denies any recent fevers, acute cough, or urinary symptoms. Related Data Home Medications ?Medication ?Instructions ?Recorded ?Confirmed ?Last Taken ?Type albuterol sulfate 90 mcg/actuation 1 puff inhalation DIRECTED 11/22/19 02/15/25 01/22/25 History aerosol inhaler (Ventolin HFA) escitalopram oxalate 5 mg tablet 5 mg PO DIRECTED 11/22/19 02/15/25 01/22/25 History lamotrigine 150 mg tablet 150 mg PO Q12H 11/22/19 02/15/25 01/22/25 History meclizine 12.5 mg tablet 12.5 mg PO QID PRN dizziness 11/22/19 02/15/25 01/22/25 History fluticasone furoate 200 1 inh inhalation DIRECTED 11/23/23 02/15/25 01/22/25 History mcg-vilanterol 25 mcg/dose inhalation powder (Breo Ellipta) lisinopril 20 mg tablet 20 mg PO DAILY 08/20/24 02/15/25 01/22/25 History propranolol 10 mg tablet 10 mg PO DAILY 08/20/24 02/15/25 01/22/25 History rosuvastatin 20 mg tablet 20 mg PO DAILY 01/17/25 02/15/25 01/22/25 History doxycycline hyclate 20 mg tablet 20 mg PO Q12H 01/23/25 02/15/25 01/22/25 History metronidazole 0.75 % topical gel 1 applic topical BID rosacea 01/23/25 02/15/25 Unknown History nebivolol 5 mg tablet 5 mg PO DAILY 01/23/25 02/15/25 Unknown History Allergies Allergy/AdvReac Type Severity Reaction Status Date / Time dog dander Allergy Intermediate Sneezing Verified 04/04/25 17:56 Review of Systems Review of Systems: All systems reviewed & are unremarkable except as noted in HPI and below PMFSH Past Medical History Medical History Irritable bowel syndrome (IBS) GERD (gastroesophageal reflux disease) Anxiety Asthma COPD (chronic obstructive pulmonary disease) Bipolar disorder Surgical History Surgical History Hx of hernia repair 01/23/2025 Robotic assisted laparoscopic paraesophageal hernia repair with 270 degree fundoplication Family History Family History Mother Family history of cardiovascular disease Family history of malignant neoplasm of gastrointestinal tract Depression Hypertension Sibling Hypertension Family history of coronary artery disease Father Alcoholism Hypertension Heart disease Social History Social History Years smoked: 35 Smoking status: Current every day smoker Tobacco type: cigarettes Smoking end date: 01/11/25 Alcohol intake: current Drinks per week: 15 Alcohol use details: states 6-10 daily but because shes on vacation Substance use: never Substance use type: does not use Do You Feel Safe in your Home?: Yes Lack of Transportation: No Lack of Food: Never True Current Housing: I Have Housing Concerned About Future Housing: No Difficulty Paying Gas/Electric Bills: No Difficulty Paying for Meds: No Currently Unemployed: No Education: High School Diploma/GED Difficulty w/ Childcare or Family Care: No Living arrangements: with family Gender identity (if verbalized by the patient): Female Spiritual care concerns: No Exam Narrative: GENERAL: Well appearing, well-nourished, non-toxic, in no acute distress. HEAD: Normocephalic, atraumatic. NECK: Supple. No adenopathy, no masses. RESPIRATORY: Airway patent, respirations nonlabored. Clear to auscultation bilaterally, no rales, rhonchi, wheezing. CARDIOVASCULAR: Regular rate and rhythm without murmurs, rubs, or gallops. Peripheral pulses 2+ and equal bilaterally. ABDOMINAL: Soft, generalized tenderness, distended, no hepatosplenomegaly. Normoactive BS. MUSCULOSKELETAL: Moves all extremities. Strength/ROM intact without gross deformities. SKIN: Warm, dry, normal color. No rashes. NEURO: A&O X3. Speech clear. Cranial nerves II-XII intact. No ataxic movements. PSYCHIATRIC: Appropriate mood and affect. Normal interaction. Course Vital Signs Vital signs: Vital Signs Temperature 36.6 C 04/04/25 17:59 Pulse Rate 88 04/04/25 17:59 Respiratory Rate 14 04/04/25 17:59 Blood Pressure 146/88 H 04/04/25 17:59 Pulse Oximetry 97 04/04/25 17:59 Oxygen Delivery Room Air 04/04/25 17:59 Temperature 36.6 C 04/04/25 17:59 Pulse Rate 56 L 04/05/25 02:13 Respiratory Rate 17 04/05/25 02:13 Blood Pressure 123/60 04/05/25 02:13 Pulse Oximetry 94 04/05/25 02:13 Oxygen Delivery Room Air 04/04/25 17:59 MDM - Chest Pain MDM Narrative Medical decision making narrative: Patient is a 54-year-old female who presents to the ER with complaints of abdominal pain and left-sided chest pain. She reports her symptoms started approximately 1 week ago. Patient reports she had hiatal hernia surgery on January 23, 2025. She reports she has been distended since then but feels as though her symptoms have worsened recently. Patient describes the abdominal pain as starting below her midsternal area, but it radiates down her abdomen and under her left breast. She also endorses slight shortness of breath recently. Patient endorses a history of COPD, depression and anxiety. She denies any recent fevers, acute cough, or urinary symptoms. Upon reexamination, patient endorses right flank pain. Labs Ordered: CBC, CMP, lipase, D-dimer, UA, PTT, INR, troponin Imaging Ordered: CT abdomen pelvis, chest x-ray Medications Ordered: Toradol 15 mg IV, morphine 4 mg IV Results: Patient's urinalysis indicates patient has UTI and hematuria. Diagnosis: Urinary tract infection, hematuria, renal colic Patient Education/Shared MDM: Results of lab work and imaging shared with patient. She endorses improvement of symptoms following medication administration. Pt continues to endorse upper GI pain, so she will be given a GI cocktail prior to discharge. She will also receive a [place] and Flomax to help relieve her renal colic pain. Patient strongly advised to maintain hydration status upon discharge and follow-up with her PCP in the next 2-3 days She will be discharged home with a prescription for Macrobid. Strict return precautions provided. Patient verbalized understanding and is in agreement with plan. Vital signs stable at time of discharge. All questions answered. Differential Diagnosis Differential diagnosis: Likely atypical chest pain, st elevation myocardial infarction and other (Kidney stone, urinary tract infection, renal colic) Lab Data Attestation: I reviewed the patient's lab results. 04/04/25 21:30 04/04/25 21:30 Labs: Lab Results 04/04/25 04/04/25 04/05/25 Range/Units 21:13 21:30 00:36 WBC 7.4 (4.5-10.0) K/mm3 RBC 4.43 (4.2-5.4) M/mm3 Hgb 13.7 (12.0-15.0) g/dL Hct 42.8 (37.0-47.0) % MCV 96.6 (80-100) fl MCH 30.9 (26-34) pg MCHC 32.0 (32-36) g/dl RDW 14.1 (11.5-14.5) % Plt Count 230 (150-375) k/mm3 MPV 8.8 (7.4-10.4) fl Immature Gran % (Auto) 0.3 (0-0.5) % Neut % (Auto) 62.9 (45.5-73.1) % Lymph % (Auto) 25.3 (18.3-44.2) % [place] % (Auto) 8.1 (2.6-8.5) % Eos % (Auto) 3.0 (0-4.4) % Baso % (Auto) 0.4 (0.2-1.2) % Lymph # (Auto) 1.88 (0.9-3.2) K/mm3 [place] # (Auto) 0.6 (0.1-0.6) K/mm3 Eos # (Auto) 0.2 (0-0.3) K/mm3 Baso # (Auto) 0.0 (0.0-0.1) K/mm3 Abs Immat Gran (auto) 0.02 (0.00-0.031) K/mm3 Absolute Neuts (auto) 4.7 (1.3-6.7) K/mm3 Absolute Nucleated RBC 0.000 (0.0-0.012) K/mm3 Nucleated RBC % 0.0 (0.0-0.2) % PT 13.2 (11.1-14.7) Seconds INR 1.0 APTT 29.3 (22.3-36.8) Seconds D-Dimer < 0.27 (<0.48) ug/mL Sodium 135 L (137-145) mmol/L Potassium 4.2 (3.4-5.0) mmol/L Chloride 102 (98-107) mmol/L Carbon Dioxide 26 (22-30) mmol/L Anion Gap 7 (4-12) mmol/L BUN 17 D (7-17) mg/dL Creatinine 0.85 (0.7-1.0) mg/dL Estim Creat Clear Calc Not Reportable Estimated GFR > 60 (59 - ) Glucose 99 (65-110) mg/dL Calcium 10.2 (8.4-10.2) mg/dL Total Bilirubin 0.6 (0.2-1.3) mg/dL AST 32 (14-36) U/L ALT 24 (6-35) U/L Alkaline Phosphatase 74 (38-126) U/L Troponin I < 0.012 < 0.012 (0.000-0.034) ng/mL Total Protein 7.6 (6.3-8.2) g/dL Albumin 4.6 (3.5-5.1) g/dL Lipase 100 (23-300) U/L Urine Color Yellow (Yellow) Urine Appearance Cloudy H (Clear) Urine pH 5.5 (5.0-9.0) Ur Specific [place] 1.029 (1.001-1.035) Urine Protein Negative (Negative) mg/dL Urine Glucose (UA) Negative (Negative) mg/dL Urine Ketones Trace H (Negative) mg/dL Ur Blood (Man) Negative (Negative) Urine Nitrate Negative (Negative) Urine Bilirubin Negative (Negative) Urine Urobilinogen 1.0 (<2.0) mg/dL Add Ur Microanalysis Reviewed Leukocyte Esterase Rfl 1+ H (Negative) AZEB/UL Urine RBC 11-20 H (0-2) /hpf Urine WBC 6-10 H (0-3) /hpf Ur Squamous Epith Cells Many H (Few) /hpf Urine Bacteria Rare /hpf Urine Casts 3-5 Hyaline Casts Present (None) /lpf Urine Mucus Present /lpf Imaging Data Attestation: I personally reviewed and interpreted this imaging study as follows: Radiologist's impression: Nonobstructing bilateral upper pole renal stones, measuring up to 5 mm in the right upper pole. Discharge Plan Discharge Clinical Impression: Renal colic on right side, Urinary tract infection, Epigastric abdominal pain Patient Disposition: Home Condition: Stable Instructions: Antibiotic Form, Urinary Tract Infection in Women (ED), Renal Colic (ED) Additional Instructions: Please return to the ER with any worsening symptoms. Follow-up with primary care provider as soon as possible. You may call ([phone] to get an appointment with urology if your back pain continues. Take all medications as prescribed, including regularly scheduled medications. Please complete your full dose of antibiotics. Remember to drink lots of water. Patient Language: Ukrainian Prescriptions: New tamsulosin [Flomax] 0.4 mg capsule 0.4 mg PO DAILY Qty: 14 0RF hydrocodone-acetaminophen 5-325 mg tablet 1 tablet PO Q6H PRN (Reason: pain) Qty: 10 0RF nitrofurantoin monohyd/m-cryst [Macrobid] 100 mg capsule 100 mg PO Q12H 5 Days Qty: 10 0RF Rx Instructions: must administer with a meal/food No Action lamotrigine 150 mg tablet 150 mg PO Q12H Patient Comments: Says takes bid meclizine 12.5 mg tablet 12.5 mg PO QID PRN (Reason: dizziness) albuterol sulfate [Ventolin HFA] 90 mcg/actuation HFA aerosol inhaler 1 puff INHALATION DIRECTED escitalopram oxalate 5 mg tablet 5 mg PO DIRECTED propranolol 10 mg tablet 10 mg PO DAILY lisinopril 20 mg tablet 20 mg PO DAILY rosuvastatin 20 mg tablet 20 mg PO DAILY doxycycline hyclate 20 mg tablet 20 mg PO Q12H metronidazole 0.75 % gel 1 applic TOPICAL BID nebivolol 5 mg tablet 5 mg PO DAILY albuterol sulfate 2.5 mg/0.5 mL solution for nebulization 5 mg inhalation Q6H PRN (Reason: shortness of breath or wheezing) Qty: 30 0RF dicyclomine 20 mg tablet 20 mg PO TID Qty: 270 1RF Rx Instructions: 90 day fill if approved by insurance omeprazole 40 mg capsule,delayed release(DR/EC) See Rx Instructions .ROUTE .COMPLEX Qty: 180 4RF Dose Instruction: 40 MG ORALLY TWICE DAILY BEFORE MEALS Patient Comments: Says has only been taking daily. Rx Instructions: 40 MG ORALLY TWICE DAILY BEFORE MEALS oxycodone-acetaminophen [Endocet] 5-325 mg tablet 0.5 - 1 tablet PO Q4H PRN (Reason: pain) Qty: 10 0RF fluticasone furoate-vilanterol [Breo Ellipta] 200-25 mcg/dose blister with device 1 inh INHALATION DIRECTED Follow-up/Referrals: Virgen,ROD Wiley [Primary Care Provider, Unknown] Time of Disposition: 02:48
[2025-04-04 21:28] LABS: Add Urine Microscopic? YES; Appearance Urine Cloudy (Clear); Glucose Urine UA Negative (Negative); Leukocyte Esterase Ur 1+ LEU/UL (Negative); Need Manual Microscopic Reviewed; Nitrate Urine Negative (Negative); Specific Grav Ur 1.029 (1.001-1.035)
[2025-04-04 21:37] VITALS: BP 134/82; PULSE 63; RESP 15; O2SAT 97
[2025-04-04 21:38] LABS: Hematocrit 42.8 % (37.0-47.0); Hemoglobin 13.7 g/dL (12.0-15.0); Immature Granulocyte Percent A 0.3 % (0-0.5); Lymphocytes Absolute Auto 1.88 K/mm3 (0.9-3.2); Mean Corpuscular HGB Conc 32.0 g/dl (32-36); Mean Corpuscular Hemoglobin 30.9 pg (26-34); Mean Corpuscular Volume 96.6 fl (80-100); Nucleated Red Blood Cells Absolute Auto 0.000 K/mm3 (0.0-0.012); Nucleated Red Blood Cells Perc 0.0 % (0.0-0.2); Platelet Count Result 230 k/mm3 (150-375); Red Blood Count 4.43 M/mm3 (4.2-5.4); White Blood Count 7.4 K/mm3 (4.5-10.0)
[2025-04-04 21:49] LABS: Alanine Aminotransferase 24 U/L (6-35); Albumin Level 4.6 g/dL (3.5-5.1); Alkaline Phosphatase 74 U/L (38-126); Anion Gap 7 mmol/L (4-12); Aspartate Amino Transferase 32 U/L (14-36); Bilirubin,Total 0.6 mg/dL (0.2-1.3); Blood Urea Nitrogen 17 mg/dL (7-17); Calcium 10.2 mg/dL (8.4-10.2); Carbon Dioxide 26 mmol/L (22-30); Chloride 102 mmol/L (98-107); Estimated Glomerular Filt Rate > 60; Glucose 99 mg/dL (65-110); Lipase 100 U/L (23-300); Potassium 4.2 mmol/L (3.4-5.0); Sodium 135 mmol/L (137-145); Total Protein 7.6 g/dL (6.3-8.2)
[2025-04-04 21:53] LABS: INR 1.0; Partial Thromboplastin Time 29.3 Seconds (22.3-36.8); Prothrombin Time 13.2 Seconds (11.1-14.7)
[2025-04-04 22:01] LABS: Troponin I < 0.012 ng/mL (0.000-0.034)
[2025-04-04] MEDS: KETOROLAC 15 MG/ML VIAL (*BKC) IV PUSH (23:37)
[2025-04-04 23:57] VITALS: BP 130/78; PULSE 56; RESP 11; O2SAT 96
--- NOTE | 2025-04-05 00:25 | ECG_ITS ---
Test Date: 2025-04-05 00:28:53 Measurements Intervals [place] Rate: 61 P: 20 [place]: 151 QRS: -64 QRSD: 108 T: 21 QT: 433 QTc: 437 Interpretive Statements SINUS RHYTHM LEFT ANTERIOR FASCICULAR BLOCK BASELINE ARTIFACT- I, II, III, AVR, AVL ABNORMAL ECG Compared to ECG 04/04/2025 21:28:48 No significant changes Electronically Signed On 04-05-2025 06:12:57 CDT by Sher Lui D.O.
[2025-04-05 01:07] LABS: Troponin I < 0.012 ng/mL (0.000-0.034)
[2025-04-05] MEDS: SODIUM CHLORIDE 0.9% IV 1,000 ML 999 ML IV CONT (01:34)
[2025-04-05] MEDS: MORPHINE SULFATE (*CRX) 4 MG/ML INJ IV PUSH (01:35)
[2025-04-05 02:13] VITALS: BP 123/60; PULSE 56; RESP 17; O2SAT 94
[2025-04-05] MEDS: TAMSULOSIN HCL 0.4 MG CAPSULE PO (02:57)
[2025-04-05] MEDS: HYDROcodone/acetaminophen (*CRX) 5-325 MG TABLET 1 TAB PO (02:58)
[2025-04-05] MEDS: BELLADONNA ALK/PHENOB ELIX 10 ML, MAG HYDROX/ALUMINUM HYD/SIMETH 30 ML, LIDOCAINE 2% VI... PO (02:59)
[2025-04-05 03:10] VITALS: BP 125/72; PULSE 58; RESP 18; TEMP 36.6; O2SAT 100
[2025-04-05 03:11] VITALS: BP 125/72; PULSE 58; RESP 18; TEMP 36.6; O2SAT 100
== END 2025-04-05 03:13 | disposition home or self-care (01) ==
PROVIDERS: Emergency Provider Registered Nurse; PCP Physician Assistant
DX: N30.90 Cystitis, unspecified without hematuria (principal); R10.13 Epigastric pain; N23 Unspecified renal colic; K21.9 Gastro-esophageal reflux disease without esophagitis; K58.9 Irritable bowel syndrome, unspecified; J44.9 Chronic obstructive pulmonary disease, unspecified; F41.9 Anxiety disorder, unspecified; F31.9 Bipolar disorder, unspecified; Z87.891 Personal history of nicotine dependence; Z79.899 Other long term (current) drug therapy; R94.31 Abnormal electrocardiogram [ECG] [EKG]; I44.4 Left anterior fascicular block; N20.0 Calculus of kidney
CPT/HCPCS: 36415; 71046; 74177; 80053; 81001; 83690; 84484; 85025; 85380; 85610; 85730; 93005; 96361; 96374; 96375; 99284; A9270; J1885; J2270; J7030; Q9967

== ENCOUNTER 2025-05-01 08:53 | Outpatient (CLI) | payer MEDICARE, MEDICAID, SELFPAY ==
--- OUTSIDE RECORDS SUMMARY | 2024-10-15 04:00 | XMS_ITS ---
Author Organization [facility] [employer] [facility] Address [facility] [address] [address] Care Team Providers Care Genetic Supervisor Name Role Phone Rachell New PA-C Primary Care Provider Unav ailable Kacy Marroquin Unavailable [phone] Ale Benedict Unavailable [phone] REASON FOR VISIT Therapy Visit Social History Sex Assigned At : Social History Observation Description Sex Assigned At Female Encounters Encounter Location Date Provider Diagnosis [facility] [place] [id number] [facility] [address] [address] 10/15/2024 Ale Ramirez Plan Of Treatment Next Appt Details Provider Name:Kacy brown, 05/03/2025 09:15:00 AM, [facility] [facility], [address], [address], Provider Name:Ale Ramirez, 05/14/2025 08:00:00 AM, [facility] [place] [address], [address], Provider Name:Ale Ramirez, 06/14/2025 10:00:00 AM, [facility] [address], [address], Progress Notes * KEESHA RUCKERB:1970 ( 54 yo F)Acc No.[id number]:10/15/2024 Patient: JEREMIAH MERCADO Provider: Sebastian RAMIREZ LCSW :1970 A ge:54 Y S ex:Female Date:10/15/2024 Address:[address] [place] [address] [id number] Pcp:Rachell New PA-C Data: * Chief Complaints: * T herapy Visit Billing Information: * Procedure Codes: * Electronic signature of Roberta Ramirez LCSW on 05/01/2025 at 09:32 AM CDT Sign off status: Pending Signatures: No Ad Hoc Signature Added * Provider: Sebastian RAMIREZ LCSW Date: 0 10/15/2024 Generated for Verna callahan/Katia/Avila on: 1 09:32 AM CDT
--- NOTE | ~2025-05-01 | XR_ITS ---
EXAMINATION: XR UGI w esoph water soluble DATE: 05/01/2025 09:30 INDICATION: Gastroesophageal reflux disease without esophagitis TECHNIQUE: The patient drank water-soluble contrast. Fluoroscopic spot radiographs of the hypopharynx, esophagus, stomach and proximal small bowel were obtained. A total of 1494 fluoroscopic images were recorded. Fluoroscopy exposure time was 2.1 minutes.. Total DAP was 22.028 Gycm^2. COMPARISON: None. FINDINGS: Abnormal contour to the gastric fundus consistent with changes of prior Arabella fundoplication. Esophageal motility is normal aside from some pooling of contrast in the distal esophagus resulting from minimal delay in passage through the region of the Arabella fundoplication. The lumen at the level of the fundoplication distends to a maximal diameter of 9 x 9 mm. The esophagus is otherwise normal without mass or stricture. There was no gastroesophageal reflux with provocative maneuvers. The stomach and proximal small bowel are otherwise normal. IMPRESSION: 1. Changes consistent with a Arabella fundoplication. No evident gastroesophageal reflux with provocative maneuvers. Reviewed, dictated and finalized at location A.
--- OUTSIDE RECORDS SUMMARY | 2025-05-01 09:33 | XMS_ITS | Encounter Summary ---
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
--- OUTSIDE RECORDS SUMMARY | 2025-05-01 09:33 | XMS_ITS | Encounter Summary ---
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
--- OUTSIDE RECORDS SUMMARY | 2025-05-01 09:33 | XMS_ITS | Encounter Summary ---
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
--- OUTSIDE RECORDS SUMMARY | 2025-05-01 09:33 | XMS_ITS | Patient Health Record ---
Author Organization [facility] [employer] Address [address] [place] [address] Care Team Providers Care Medical Oncologist Name Role Phone Rachell New PA-C Primary Care Provider Unarasheed ruvalcaba Kacy Marroquin Unavailable [phone] Vitaliy Ale Nelson Unavailable [phone] Allergies No Known Allergies Results Component Value Reference Range Notes UDT Reviewed date:07/31/2024 03:17:21 PM Interpretation: Performing Lab: Notes/Report: Amphetamine (AMP) N 0 - 1000 ng/ml Buprenorphine (BUP) N 0 - 10 ng/ml Oxazepam (BZO) N 0 - 300 ng/ml Cocaine (LIANA) N 0 - 300 ng/ml Methamphetamine (mAMP) N 0 - 300 ng/ml Methylenedioxymethamphetamine (MDMA) N 0 - 500 ng/ml Morphine (MOP) N 0 - 25 ng/ml Methadone (MTD) N 0 - 300 ng/ml Oxycodone (OXY) N 0 - 300 ng/ml THC N 0 - 50 ng/ml x N 0 - 1000 ng/ml x N 0 - 1000 ng/ml x N 0 - 300 ng/ml x N 0 - 300 ng/ml x N 0 - 300 ng/ml Reason For Referral No Information Medications Medication SIG (Take, Route, Frequency, Duration) Notes Start Date End Date Status Omeprazole 40 MG Capsule Delayed Release Oral 11/22/2023 Active Dexilant 60 MG Capsule Delayed Release Oral 11/22/2023 Not-Taking Meloxicam 15 MG Tablet Oral 11/22/2023 Active Cholecalciferol 25 MCG (1000 UT) Capsule Oral 11/22/2023 Active Cyclobenzaprine HCl 10 MG Tablet Oral 11/22/2023 Not-Taking Fluticasone Propionate Diskus 50 MCG/ACT Aerosol Powder Breath Activated Inhalation *Reorder from [facility] for eRx and Interaction Alerts* 11/22/2023 Active HYDROcodone-Acetamino phen 5-325 MG Tablet Oral 11/22/2023 Not-Rene ing lamoTRIgine 200 mg Tablet 1 tablet oral twice a day; Duration: 28 days Active Symbicort 160-4.5 MCG/ACT Aerosol Inhalation 11/22/2023 Active metFORMIN HCl 500 MG Tablet 1 tablet with a meal Orally Once a day Active ProAir HFA 108 (90 Base) MCG/ACT Aerosol Solution Inhalation 11/22/2023 Active hydrOXYzine HCl 25 MG Tablet TAKE 1 TABLET BY MOUTH TWICE A DAY NEEDED; Duration: 84 Active Rosuvastatin Calcium 20 MG Tablet Oral 11/22/2023 Active Cetirizine HCl 10 MG Tablet Oral 11/22/2023 Active Naproxen 375 MG Tablet Oral 11/22/2023 Not-Taking Breo Ellipta 200-25 MCG/INH Aerosol Powder Breath Activated Inhalation 11/22/2023 Active Diclofenac Sodium 1% Gel Transdermal 11/22/2023 Not-Taking [place] Carbonate ER 300 mg Tablet Extended Release 1 tablet at bedtime oral daily; Duration: 28 days Active metroNIDAZOLE 0.75 % Gel 1 application Externally Twice a day Active Nebivolol HCl 5 MG Tablet TAKE 1 TABLET (5 MG TOTAL) BY MOUTH DAILY. Oral; Duration: 30 Days Active FLUoxetine HCl 20 MG Capsule 1 CAPSULE ORALLY ONCE A DAY TOTAL DAILY DOSE 60 MG; Duration: 28 days Active Albuterol Sulfate (2.5 MG/3ML) 0.083% Nebulization Solution Inhalation 11/22/2023 Active Propranolol HCl 10 MG Tablet 1 tablet on an empty stomach Orally twice a day; Duration: 28 days Active FLUoxetine HCl 40 MG Capsule TAKE 1 CAPSULE BY MOUTH EVERY DAY FOR TOTAL DOSE OF 60 MG DAILY; Duration: 84 Active Immunizations Vaccine Route Administration Date Status Comme nts Influenza, injectable, MDCK, preservative free Unknown 05/14/2019 Administered Influenza, quadrivalent, split virus Unknown 05/14/2019 Administered Source VFC Code: V00 - VFC eligibility not determined/unknown Influenza, unspecified formulation Unknown 07/02/2019 Administered Novel [id number], preservative free Unknown 06/10/2020 Administered Novel [id number], preservative free Unknown 04/06/2021 Administered Pfizer Biontech [...] decision-maker Yes Do you have Power of Admin Dir for Health or [facility]? No Safety issues: Are there any firearms [...] Answer Notes Tobacco Control (Standard) Tobacco use: Current smoker How often do you smoke cigarettes? Some days, but not every day How many cigarettes a day do you smoke? 5 or less How soon after you wake up do [...] weekends Section Notes: Drinks ETOH on weekends. Den [...] NoDo you have a medical power of county attorney?: NoPublic Health and TravelHave you been [...] date of your most recent tobacco screening?: 11/22/2023 tobacco cessation counseling been provided?: YesOn what [...] NoDo you have a medical power of county attorney?: NoPublic Health and TravelHave you been [...] date of your most recent tobacco screening?: 11/22/2023 tobacco cessation counseling been provided?: YesOn what [...] NoDo you have a medical power of county attorney?: NoPublic Health and TravelHave you been [...] NoDo you have a medical power of county attorney?: NoPublic Health and TravelHave you been [...] NoDo you have a medical power of county attorney?: NoPublic Health and TravelHave you been [...] NoDo you have a medical power of county attorney?: NoPublic Health and TravelHave you been [...] NoDo you have a medical power of county attorney?: NoPublic Health and TravelHave you been [...] received?: High school graduateAre you currently employed?: NoWAlter Eco is your employer?: NoneMarriage and SexualityWhat is [...] NoDo you have a medical power of county attorney?: NoPublic Health and TravelHave you been [...] NoDo you have a medical power of county attorney?: NoPublic Health and TravelHave you been [...] depressed bipolar I disorder without psychotic features (52997840) Bipolar disorder, current episode depressed, severe, without psychotic features (F31.4) 4 Active confirmed Problem Bipolar disorder (78334042) Bipolar disorder, unspecified (F31.9) Active confirmed Problem Generalized anxiety disorder (27689423) Generalized anxiety disorder (F41.1) 4 Active confirmed Problem Posttraumatic stress disorder (51571701) Post-traumatic stress disorder, chronic (F43.12) Active confirmed Problem Borderline personality disorder (21275636) Borderline personality disorder (F60.3) 4 Active confirmed Problem Obstructive sleep apnea syndrome (disorder) (87197409) Obstructive sleep apnea (adult) (pediatric) (G47.33) 4 Active confirmed Problem Tardive dyskinesia (097597978) Tardive dyskinesia (G24.01) Active confirmed Problem Tobacco use (683961091) Nicotine use (Z72.0) Active confirmed Problem Essential hypertension (09077361) Benign essential HTN (I10) Active confirmed Vital Signs Heart Rate 73 /min 02/08/2025 Height-cm 170.18 cm 02/08/2025 Blood pressure diastolic 71 mm Hg 02/08/2025 Weight-kg 95.62 kg 02/08/2025 Height 67.00 in 02/08/2025 Blood pressure systolic 105 mm Hg 02/08/2025 Weight 210.8 lbs 02/08/2025 BMI 33.01 kg/m2 02/08/2025 Encounters Encounter Location Date Provider Diagnosis [facility] [place] [address] [address] 05/24/2024 Ale Nelson Borderline personality disorder F60.3 ; Severe episode of recurrent major depressive disorder, without psychotic features F33.2 and Post-traumatic stress disorder, chronic F43.12 [facility] [address] [facility] [address] [place] [address] 06/01/2024 Kacy Marroquin Bipolar disorder, current episode depressed, severe, without psychotic features F31.4 ; Generalized anxiety disorder F41.1 ; Post-traumatic stress disorder, chronic F43.12 ; Tardive dyskinesia G24.01 ; Borderline personality disorder F60.3 ; Benzodiazepine dependence F13.20 and Obstructive sleep apnea (adult) (pediatric) G47.33 [place] [address] [address] 06/19/2024 Ale Nelson Generalized anxiety disorder F41.1 ; Borderline personality disorder F60.3 and Post-traumatic stress disorder, chronic F43.12 [facility] [address] [address] 07/31/2024 Ale Nelson Bipolar disorder, current episode depressed, severe, without psychotic features F31.4 ; Generalized anxiety disorder F41.1 and Borderline personality disorder F60.3 [place] [facility] [address] [address] 07/31/2024 Kacy Marroquin Bipolar disorder, current episode depressed, severe, without psychotic features F31.4 ; Generalized anxiety disorder F41.1 ; Post-traumatic stress disorder, chronic F43.12 ; Tardive dyskinesia G24.01 ; Borderline personality disorder F60.3 and Obstructive sleep apnea (adult) (pediatric) G47.33 [place] [address] [address] 08/16/2024 Ale Nelson Generalized anxiety disorder F41.1 ; Bipolar disorder, current episode depressed, severe, without psychotic features F31.4 ; Post-traumatic stress disorder, chronic F43.12 and Borderline personality disorder F60.3 [facility] [place] [address] [address] 08/24/2024 Kacy Marroquin Generalized anxiety disorder F41.1 ; Bipolar disorder, current episode depressed, severe, without psychotic features F31.4 ; Post-traumatic stress disorder, chronic F43.12 ; Tardive dyskinesia G24.01 ; Borderline personality disorder F60.3 ; Nicotine dependence with current use F17.200 ; Benign essential HTN I10 and Obstructive sleep apnea (adult) (pediatric) G47.33 [place] [address] [facility] [address] [address] 08/28/2024 Ale Nelson Borderline personality disorder F60.3 ; Bipolar disorder, current episode depressed, severe, without psychotic features F31.4 ; Post-traumatic stress disorder, chronic F43.12 and Generalized anxiety disorder F41.1 [place] [address] [facility] [address] [address] 09/03/2024 Ale Nelson Post-traumatic stress disorder, chronic F43.12 ; Bipolar disorder, current episode depressed, severe, without psychotic features F31.4 ; Generalized anxiety disorder F41.1 and Borderline personality disorder F60.3 [place] [address] [facility] [address] [address] 09/19/2024 Kacy Marroquin Generalized anxiety disorder F41.1 ; Borderline personality disorder F60.3 ; Post-traumatic stress disorder, chronic F43.12 ; Bipolar disorder, current episode depressed, severe, without psychotic features F31.4 ; Benign essential HTN I10 ; Obstructive sleep apnea (adult) (pediatric) G47.33 ; Nicotine use Z72.0 and Encounter for screening for depression Z13.31 [facility] [place] [address] [facility] [address] [address] 11/16/2024 Ale Nelson Bipolar disorder, current episode depressed, severe, without psychotic features F31.4 ; Post-traumatic stress disorder, chronic F43.12 ; Borderline personality disorder F60.3 ; Generalized anxiety disorder F41.1 and Encounter for screening for depression Z13.31 [place] [address] [facility] [address] [place] [address] 11/19/2024 Kacy Marroquin Bipolar disorder, current episode depressed, severe, without psychotic features F31.4 ; Generalized anxiety disorder F41.1 ; Post-traumatic stress disorder, chronic F43.12 ; Borderline personality disorder F60.3 ; Obstructive sleep apnea (adult) (pediatric) G47.33 ; Nicotine use Z72.0 ; Benign essential HTN I10 and Encounter for screening for depression Z13.[address] [address] 12/24/2024 Kacy Marroquin Bipolar disorder, current episode depressed, severe, without psychotic features F31.4 ; Generalized anxiety disorder F41.1 ; Post-traumatic stress disorder, chronic F43.12 ; Borderline personality disorder F60.3 ; Nicotine use Z72.0 ; Obstructive sleep apnea (adult) (pediatric) G47.33 ; Benign essential HTN I10 and Encounter for screening for depression Z13.[address] [address] 02/08/2025 Ale Nelson Borderline personality disorder F60.3 ; Bipolar disorder, current episode depressed, severe, without psychotic features F31.4 ; Post-traumatic stress disorder, chronic F43.12 and Generalized anxiety disorder F41.[address] [address] 02/08/2025 Kacy Marroquin Generalized anxiety disorder F41.1 ; Bipolar disorder, current episode depressed, severe, without psychotic features F31.4 ; Borderline personality disorder F60.3 and Obstructive sleep apnea (adult) (pediatric) G47.33 [place] [address] [address] 04/25/2025 Ale Nelsno Bipolar disorder, current episode depressed, severe, without psychotic features F31.4 ; Generalized anxiety disorder F41.1 and Post-traumatic stress disorder, chronic F43.12 [place] [address] [address] 08/23/2024 Kacy Marroquin [place] [address] [address] 12/28/2024 Kacy Marroquin [facility], [facility] [address] [place] [address] 03/08/2025 Kacy Marroquin Generalized anxiety disorder F41.1 [facility], [facility] [address] [place] [address] 05/24/2024 [facility], [facility] [address] [place] [address] 06/08/2024 Kacy Marroquin [facility], [facility] [address] [place] [address] 06/11/2024 Kacy Marroquin Bipolar disorder, current episode depressed, severe, without psychotic features F31.4 ; Tardive dyskinesia G24.01 and Generalized anxiety disorder F41.1 [facility], [facility] [address] [place] [address] 06/18/2024 Kacy Marroquin [facility], [facility] [address] [place] [address] 08/01/2024 Kacy Marroquin [facility], [facility] [address] [place] [address] 08/03/2024 Kacy Marroquin Generalized anxiety disorder F41.1 [facility], [facility] [address] [place] [address] 08/22/2024 Kacy Marroquin [facility], [facility] [address] [place] [address] 08/24/2024 Kacy Marroquin [facility], [facility] [address] [place] [address] 10/15/2024 Kacy Marroquin [facility], [facility] [address] [place] [address] 12/25/2024 Kacy Marroquin Assessments Encounter Date Diagnosis (ICD Code) Assessment Notes Treatment Notes Treatment Clinical Notes Section Notes 05/24/2024 Borderline personality disorder (ICD-10 - F60.3) [...] an implant at [facility]. 05/24/2024 Severe episode of recurrent major depressive [...] an implant at [facility]. 06/01/2024 Bipolar disorder, current episode depressed, severe, [...] sorted out. Plans to discuss medications with x ray control equipment repairer as upcoming appointment Plan: - Continue lithium 300mg daily - Continue fluoxetine 40mg daily - Continue lamotrigine 200mg twice daily - Monitor for effectiveness and side effects - Reassess need for medication adjustments after cardiology consultation Anxiety Disorder Assessment: Patient experiences ongoing anxiety with panic attacks, particularly during car rides. Reports some improvement with current management. Using propranolol and fnje-zhf-qqpetv r anxiety patches (Blaise patches with Ashwagandha [...] use - Consider prazosin for nightmares, pending x ray control equipment repairer approval due to potential blood pressure effects [...] and blood pressure at home - Obtain x ray control equipment repairer's input on psychiatric medications that may affect [...] ng to a new medication Medication considered [id number] Sertraline (Zoloft), CYP2D5 Aripiprazole (Abilify), CYP2D6 Brexpiprazole [...] 02/08/2025 Borderline personality disorder (ICD-10 - F60.3) 02/08/2025 Bipolar disorder, current episode depressed, severe, without psychotic features (ICD-10 - F31.4) 02/08/2025 Generalized anxiety disorder (ICD-10 - F41.1) 03/08/2025 Generalized anxiety disorder (ICD-10 - F41.1) 04/25/2025 Bipolar disorder, current episode depressed, severe, without psychotic features (ICD-10 - F31.4) 04/25/2025 Generalized anxiety disorder (ICD-10 - F41.1) 04/25/2025 Post-traumatic stress disorder, chronic (ICD-10 - F43.12) 02/08/2025 Post-traumatic stress disorder, chronic (ICD-10 - F43.12) 02/08/2025 Borderline personality disorder (ICD-10 - F60.3) 12/24/2024 Post-traumatic stress disorder, chronic (ICD-10 - [...] sorted out. Plans to discuss medications with x ray control equipment repairer as upcoming appointment Plan: - Continue lithium 300mg daily - Continue fluoxetine 40mg daily - Continue lamotrigine 200mg twice daily - Monitor for effectiveness and side effects - Reassess need for medication adjustments after cardiology consultation Anxiety Disorder Assessment: Patient experiences ongoing anxiety with panic attacks, particularly during car rides. Reports some improvement with current management. Using propranolol and elyj-lxz-jgpdmq r anxiety patches (Blaise patches with Ashwagandha [...] use - Consider prazosin for nightmares, pending x ray control equipment repairer approval due to potential blood pressure effects [...] and blood pressure at home - Obtain x ray control equipment repairer's input on psychiatric medications that may affect [...] an implant at [facility]. 06/01/2024 Post-traumatic stress disorder, chronic (ICD-10 - [...] - follow up in 4 weeks 06/01/2024 Tardive dyskinesia (ICD-10 - G24.01) - [...] sorted out. Plans to discuss medications with x ray control equipment repairer as upcoming appointment Plan: - Continue lithium 300mg daily - Continue fluoxetine 40mg daily - Continue lamotrigine 200mg twice daily - Monitor for effectiveness and side effects - Reassess need for medication adjustments after cardiology consultation Anxiety Disorder Assessment: Patient experiences ongoing anxiety with panic attacks, particularly during car rides. Reports some improvement with current management. Using propranolol and oymf-npu-osznmz r anxiety patches (Blaise patches with Ashwagandha [...] use - Consider prazosin for nightmares, pending x ray control equipment repairer approval due to potential blood pressure effects [...] and blood pressure at home - Obtain x ray control equipment repairer's input on psychiatric medications that may affect [...] Borderline personality disorder (ICD-10 - F60.3) 02/08/2025 Obstructive sleep apnea (adult) (pediatric) (ICD-10 - G47.33) 02/08/2025 Generalized anxiety disorder (ICD-10 - F41.1) 12/24/2024 Nicotine use (ICD-10 - Z72.0) 11/16/2024 Encounter for screening for depression (ICD-10 [...] sorted out. Plans to discuss medications with x ray control equipment repairer as upcoming appointment Plan: - Continue lithium 300mg daily - Continue fluoxetine 40mg daily - Continue lamotrigine 200mg twice daily - Monitor for effectiveness and side effects - Reassess need for medication adjustments after cardiology consultation Anxiety Disorder Assessment: Patient experiences ongoing anxiety with panic attacks, particularly during car rides. Reports some improvement with current management. Using propranolol and oqwm-aiw-ifoglq r anxiety patches (Blaise patches with Ashwagandha [...] use - Consider prazosin for nightmares, pending x ray control equipment repairer approval due to potential blood pressure effects [...] and blood pressure at home - Obtain x ray control equipment repairer's input on psychiatric medications that may affect [...] sleep apnea (adult) (pediatric) (ICD-10 - G47.33) 09/19/2024 Bipolar disorder, current episode depressed, severe, [...] sorted out. Plans to discuss medications with x ray control equipment repairer as upcoming appointment Plan: - Continue lithium 300mg daily - Continue fluoxetine 40mg daily - Continue lamotrigine 200mg twice daily - Monitor for effectiveness and side effects - Reassess need for medication adjustments after cardiology consultation Anxiety Disorder Assessment: Patient experiences ongoing anxiety with panic attacks, particularly during car rides. Reports some improvement with current management. Using propranolol and suyd-nwm-pmltsf r anxiety patches (Blaise patches with Ashwagandha [...] use - Consider prazosin for nightmares, pending x ray control equipment repairer approval due to potential blood pressure effects [...] and blood pressure at home - Obtain x ray control equipment repairer's input on psychiatric medications that may affect [...] - follow up in 4 weeks 06/01/2024 Benzodiazepine dependence (ICD-10 - F13.20) - [...] depression has always been more prevalent than l[place]et. - tardive dyskinesia hx, noted in prior [...] sorted out. Plans to discuss medications with x ray control equipment repairer as upcoming appointment Plan: - Continue lithium 300mg daily - Continue fluoxetine 40mg daily - Continue lamotrigine 200mg twice daily - Monitor for effectiveness and side effects - Reassess need for medication adjustments after cardiology consultation Anxiety Disorder Assessment: Patient experiences ongoing anxiety with panic attacks, particularly during car rides. Reports some improvement with current management. Using propranolol and fnkp-lmj-ddwltp r anxiety patches (Blaise patches with Ashwagandha [...] use - Consider prazosin for nightmares, pending x ray control equipment repairer approval due to potential blood pressure effects [...] and blood pressure at home - Obtain x ray control equipment repairer's input on psychiatric medications that may affect [...] sorted out. Plans to discuss medications with x ray control equipment repairer as upcoming appointment Plan: - Continue lithium 300mg daily - Continue fluoxetine 40mg daily - Continue lamotrigine 200mg twice daily - Monitor for effectiveness and side effects - Reassess need for medication adjustments after cardiology consultation Anxiety Disorder Assessment: Patient experiences ongoing anxiety with panic attacks, particularly during car rides. Reports some improvement with current management. Using propranolol and ihyx-vdx-xwvzfb r anxiety patches (Blaise patches with Ashwagandha [...] use - Consider prazosin for nightmares, pending x ray control equipment repairer approval due to potential blood pressure effects [...] and blood pressure at home - Obtain x ray control equipment repairer's input on psychiatric medications that may affect [...] sorted out. Plans to discuss medications with x ray control equipment repairer as upcoming appointment Plan: - Continue lithium 300mg daily - Continue fluoxetine 40mg daily - Continue lamotrigine 200mg twice daily - Monitor for effectiveness and side effects - Reassess need for medication adjustments after cardiology consultation Anxiety Disorder Assessment: Patient experiences ongoing anxiety with panic attacks, particularly during car rides. Reports some improvement with current management. Using propranolol and bbtn-ipd-dbzyih r anxiety patches (Blaise patches with Ashwagandha [...] use - Consider prazosin for nightmares, pending x ray control equipment repairer approval due to potential blood pressure effects [...] and blood pressure at home - Obtain x ray control equipment repairer's input on psychiatric medications that may affect [...] stressors and being alone, leading to manager union visits and hospitalizations. - Plan: - Continue [...] - Plan: - Continue therapy sessions with COUPON CLERK - Explore trauma-focused therapies (e.g., EMDR) [...] - Plan: - Proceed with the scheduled practice coordinator appointment on the for further evaluation and management. Weight Loss, Poor Appetite, and Vomiting - Assessment: The patient reports losing weight, not eating much, experiencing dry heaves, and frequent vomiting. - Plan: - Monitor the patient's weight and nutritional intake. - Consider referral to a clinical data management director for dietary guidance and support. - Evaluate [...] Recommend the patient to consult with a supervisor fine grading for further evaluation and potential diagnosis. - [...] normal. - Plan: - Schedule follow-up with practice coordinator - Recommend reducing alcohol consumption - Follow [...] given the level of alcohol consumption 11/19/2024 Hamilton Gordon, a 54-year-old female with a history [...] is currently under the care of a painter plate for further evaluation. Plan: - Await results [...] psychiatric medications: - Lamotrigine - Fluoxetine - [place] - Monitor for worsening of mood symptoms [...] - Lamotrigine 200 mg twice daily - [place] 300 mg at bedtime - Fluoxetine 40 [...] of diabetic symptoms or significant weight changes 02/08/2025 Hamilton Pickett, a patient with a [...] boundaries and supporting her son's continued sobriety 02/08/2025 Other Nieves Gordon, female patient with history of psychiatric hospitalizations, [...] Continue Lamotrigine 200mg PO BID - Continue [place] 300mg PO at bedtime - Follow up [...] at higher doses Medical Decision Making Nieves Gordon is a female patient with a history [...] contraindicated due to past issues with overuse. 04/25/2025 Other Nieves presents with depressive symptoms and catastrophic thinking regarding chest pain that she believes may be cancer. Depression - Assessment: Nieves reports feeling depressed. The depression appears to be contributing to or exacerbated by catastrophic thinking patterns, particularly regarding physical symptoms. - Plan: - Utilize cognitive behavioral therapy techniques to address depressive symptoms and associated cognitive distortions. - Provide support for coping skills development. Catastrophic Thinking - Assessment: Nieves demonstrates catastrophizing behavior, specifically convinced that her chest pain represents cancer. This represents a cognitive distortion pattern that is contributing to her overall distress and may be maintaining her depressive symptoms. - Plan: - Utilize cognitive behavioral therapy techniques to combat catastrophizing and other cognitive distortions. - Provide coping skills to address catastrophic thinking patterns. Chest Pain Concerns - Assessment: Nieves experiences chest pain and has developed catastrophic beliefs that this pain indicates cancer. The physical symptom has become a focus of significant anxiety and catastrophic interpretation. - Plan: - Encourage patient to follow directives of her doctor regarding chest pain evaluation. - Encourage patient to discuss supplements she has been taking with her doctor. Plan Of Treatment Pending Test Test Name Order Date Cytochrome P450 2D6 Genotyping 5 Cytochrome P450 2C9 Genotyping 5 Cytochrome P450 2C19 12/24/2024 Next Appt Details Provider Name:Kacy brown, 05/03/2025 09:15:00 AM, [address], [address], Provider Name:Ale Nelson, 05/14/2025 08:00:00 AM, [address], [address], [place], [address], Provider Name:Ale Nelson, 06/14/2025 10:00:00 AM, [address], [address], [place], [address], Insurance Providers Payer Name Payer Address Payer Phone Subscriber Number Group Number Insured Name Patient Relationship to Insured Coverage Start Date Coverage End Date [facility] [address] [place] [address] [id number] NIEVES GORDON Self - patient is the insured [place] Medicaid [address] [address] [place] [address] [id number] NIEVES GORDON Self - patient is the insured [...]
--- OUTSIDE RECORDS SUMMARY | 2025-05-01 09:33 | XMS_ITS | Encounter Summary ---
Author Organization [facility] Facility Care Team Providers Care Buckle Coverer Name Role Phone Inez New Primary Care Provider [phone] Candido Guerin MD Unavailable [phone] Anthony Diez MD Unavailable [phone] Encounter Details Date Type Department Care Team (Latest Contact Info) Description 10/07/2017 Orders Only [facility]INCON[facility] ProviderVishal MD [address] [place] [address] Social History Tobacco Use Types Packs/Day Years Used Date Smoking Tobacco: Never Assessed Comments Unknown Sex and Gender Information Value Date Recorded Sex Assigned at Not on file 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
--- OUTSIDE RECORDS SUMMARY | 2025-05-01 09:33 | XMS_ITS | Encounter Summary ---
Author Organization [facility] Facility Care Team Providers Care Watch Case Polisher Name Role Phone Inez New Primary Care Provider [phone] Candido Guerin MD Unavailable [phone] Anthony Diez MD Unavailable [phone] Encounter Details Date Type Department Care Team (Latest Contact Info) Description 10/01/2016 Orders Only [facility] CLINCONV ProviderVishal MD [address] [place] [address] Social History Tobacco Use Types Packs/Day Years Used Date Smoking Tobacco: Never Assessed Comments Unknown Sex and Gender Information Value Date Recorded Sex Assigned at Not on file 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
--- OUTSIDE RECORDS SUMMARY | 2025-05-01 09:33 | XMS_ITS | Clinical Summary ---
Author Organization [facility] Address [address] [place] [address] Care Team Providers Care Inside Meter Tester Name Role Phone Inez New Primary Care Provider [phone] Allergies No known active allergies Medications rosuvastatin [...] Date Last Done Comments Cervical Cancer Screening Pap Smear (Age 30 to 64) Every 3 Years 1971 Annual Physical 1974 Hepatitis C 1989 Hepatitis A Vaccines (1 of 2 - Risk 2-dose series) 1990 Hepatitis B Vaccines (1 of 3 - 19+ 3-dose series) 1990 Pneumococcal Vaccine: 50+ Years (1 of 2 - PCV) 1990 Cervical Cancer Screening Pap with HPV Testing (Age 30 to 64) Every 5 Years 2001 Cervical Cancer Screening with HPV 2001 Zoster Vaccines (1 of 2) 2021 COVID-19 Vaccine (3 - season) 2025 11/25/2020, 10/30/2020 Influenza Adult (#1) 2025 06/11/2024, 05/04/2023, 07/22/2022, Additional history exists Mammogram Screening 08/08/2026 08/08/2024, 4 DTaP, Tdap and Td Vaccines (2 - Td or Tdap) 06/30/2027 06/30/2017 Colorectal Cancer Screening Colonoscopy (10 Years) 05/26/2031 05/26/2021, 05/26/2021 Meningococcal B Vaccine Aged Out No l onger eligible based on patient's age to complete this topic Meningococcal Vaccine Aged Out No juliet omar eligible based on patient's age to complete this topic RSV Immunizations Under 20 Months Aged Out No longer eligible based on patient's age to complete this topic Procedures Procedure Name Priority Date/Time Associated Diagnosis Comments COLONOSCOPY Routine 05/26/2021 5:23 AM SENIOR TAX ACCOUNTANT from Last 3 Months or Most Recently Relevant to Health Maintenance [facility] [address] MEDICARE Care Teams Inside Meter Tester Relationship Specialty Start Date End Date Inez New PA [address] [place] [address] [address] [place] [address] PCP - General PHYSICIAN SOCIAL HUMAN SERVICES ASSISTANTS 05/26/21
--- OUTSIDE RECORDS SUMMARY | 2025-05-01 09:33 | XMS_ITS | Encounter Summary ---
Author Organization 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
--- OUTSIDE RECORDS SUMMARY | 2025-05-01 09:33 | XMS_ITS | Encounter Summary ---
Author Organization 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
--- OUTSIDE RECORDS SUMMARY | 2025-05-01 09:33 | XMS_ITS | Clinical Summary ---
Author Organization [facility] [address] [facility] Address [address] [place] [address] Care Team Providers Care Dryer Feeder Name Role Phone Inez New Primary Care Provider [phone] Candido Guerin MD Unavailable [phone] Anthony Diez MD Unavailable [phone] Allergies No known active allergies Medications magnesium oxide-Mg AA chelate 300 mg capsule 300 mg daily Active cholecalciferol (VITAMIN D-3) 1,000 unit tablet 1 tablet (1,000 Units total) daily Active potassium gluconate 2.5 mEq tablet 75 mg daily Active meclizine (ANTIVERT) 12.5 mg tabletIndications :Vertigo TAKE 1 TABLET BY MOUTH THREE TIMES A DAY NEEDED FOR DIZZINESS 90 tablet 01/28/20 22 Active lamoTRIgine (LaMICtal) 200 mg tablet Take [...] with it. 100 each 11 03/27/20 24 Active lancets (onetouch ultrasoft) miscIndications:T ype 2 diabetes mellitus with hyperlipidemia (HCC) Check blood sugar one time a day. 100 each 4 03/27/20 24 Active FLUoxetine (PROzac) 40 mg capsule Take 1 capsule (40 mg total) by mouth daily Active omeprazole (PriLOSEC) 40 mg capsule Take 1 capsule (40 mg total) by mouth daily 90 capsule 1 06/11/20 24 Active dicyclomine (BENTYL) 10 mg capsule Take 1 capsule (10 mg total) by mouth 3 (three) times a day 10/13/19 25 Active metroNIDAZOLE (METROGEL) 0.75 % gel Apply topically 2 (two) times a day 10/11/19 25 Active doxycycline hyclate 100 mg capsule Take 1 tablet/capsul e (100 mg total) by mouth daily 08/30/19 25 Active albuterol HFA (Ventolin HFA) 90 mcg/actuation inhalerIndication s:Wheezing Inhale 2 puffs every 4 (four) hours as needed for wheezing 3 each 3 02/02/20 25 Active fluticasone propionate (FLONASE) 50 mcg/actuation nasal sprayIndications: Seasonal allergic rhinitis due to pollen Administer 1 spray into each nostril daily 3 each 1 02/02/20 25 Active lisinopriL (PRINIVIL,ZESTRIL ) 20 mg tablet TAKE 1 TABLET BY MOUTH EVERY DAY 90 tablet 02/09/20 25 Active Breo Ellipta 200-25 mcg/dose diskus inhalerIndication s:Chronic obstructive pulmonary disease, unspecified COPD type ([facility]) INHALE 1 PUFF DAILY RINSE MOUTH AFTER USE DO NOT SWALLOW 60 each 1 03/05/20 25 Active rosuvastatin (CRESTOR) 20 mg tabletIndications :Hyperlipidemia, unspecified hyperlipidemia type TAKE 1 TABLET BY MOUTH DAILY 90 tablet 1 03/28/20 25 Active ferrous sulfate (FeroSuL) 325 mg (65 mg of elemental iron) tablet TAKE 1 TABLET BY MOUTH DAILY WITH BREAKFAST 90 tablet 1 03/28/20 25 Active metFORMIN (GLUCOPHAGE) 500 mg tabletIndications :Type 2 diabetes mellitus with hyperlipidemia (HCC) TAKE 1 TABLET BY MOUTH DAILY WITH BREAKFAST 90 tablet 1 04/29/20 25 Active nebivoloL (BYSTOLIC) 5 mg tabletIndications :Hypertension associated with diabetes (HCC) TAKE 1 TABLET (5 MG TOTAL) BY MOUTH DAILY. 90 tablet 1 04/30/20 25 Active metFORMIN (GLUCOPHAGE) 500 mg tabletIndications :Type 2 diabetes mellitus with hyperlipidemia (HCC) Take 1 tablet (500 mg total) by mouth daily with breakfast 90 tablet 2 08/23/19 25 2024 Discontinued nebivoloL (BYSTOLIC) 5 mg tabletIndications :Hypertension associated with diabetes (HCC) TAKE 1 TABLET (5 MG TOTAL) BY MOUTH DAILY. 90 tablet 1 09/13/19 25 2024 Discontinued Active Problems Problem Noted Date Diagnosed Date Hiatal hernia 12/23/2024 Rosacea 12/23/2024 Dizziness 08/26/2024 Assessment & Plan (08/26/2024 4:47 PM WIRE COATER): This is a significant, separately identifiable problem [...] 08/15/2024 Assessment & Plan (08/26/2024 4:38 PM WIRE COATER): Blood pressure still isn't perfectly controlled. Continue [...] provided. Assessment & Plan (08/15/2024 10:04 AM WIRE COATER): Discussed the patient's BMI. The BMI is above average. BMI management plan is completed. BMI Follow-up includes: nutrition counseling, exercise counseling and education provided. Assessment & Plan (08/01/2024 11:21 AM WIRE COATER): Discussed the patient's BMI. The BMI is above average. BMI management plan is completed. BMI Follow-up includes: nutrition counseling, exercise counseling and education provided. Assessment & Plan (06/11/2024 12:16 PM WIRE COATER): Discussed the patient's BMI. The BMI is above average. BMI management plan is completed. BMI Follow-up includes: nutrition counseling, exercise counseling and education provided. Elevated TSH 03/17/2024 Assessment & Plan (03/18/2024 8:08 PM CDT): Check labs Abnormal thyroid screen (blood) 03/17/2024 Type 2 diabetes mellitus wit hout complication, without long-term current use of insulin 03/17/2024 Assessment & Plan (08/26/2024 4:37 PM WIRE COATER): Stressed importance of continued A1c control to minimize the termite treater effects of diabetes. Bring accuchecks to office when instructed to do so. Check A1c about every 3-6 months. Take medication as prescribed. Get annual eye exam. Encouraged GLENDY/Statin if able to tolerate. Encouraged weight control and encouraged diabetic diet and exercise. Continue with metformin 500 el A1c is tightly controlled at 5.8 Assessment & Plan (08/13/2024 1:18 PM WIRE COATER): Stressed importance of continued A1c control to minimize the prison effects of diabetes. Bring accuchecks to office when instructed to do so. Check A1c about every 3-6 months. Take medication as prescribed. Get annual eye exam. Encouraged GLENDY/Statin if able to tolerate. Encouraged weight control and encouraged diabetic diet and exercise. A1c is nicely controlled at 5.9. Continue metformin 500 mg Assessment & Plan (06/11/2024 12:15 PM WIRE COATER): Stressed importance of continued A1c control to minimize the termite treater effects of diabetes. Bring accuchecks to office [...] Discussed with patient at length diabetes, pathogenesis, prison sequela, end organ damage, diet/exercise/weight loss, and [...] feet on a regular basis to avoid termite treater problems. Offered referral to motor room controller. Start metformin 500 mg 1 tablet daily [...] referral Assessment & Plan (09/07/2023 10:34 PM WIRE COATER): Ears are clear. Suspect eustachian tube dysfunction. Recommend Flonase, mucinex and antihistamine. If symptoms persist, may need ENT referral. Morbid obesity 07/22/2022 Assessment & Plan (12/12/2024 8:42 AM CDT): Discussed the patient's BMI. The BMI is above average. BMI management plan is completed. BMI Follow-up includes: nutrition counseling, exercise counseling and education provided. Assessment & Plan (08/26/2024 4:37 PM WIRE COATER): Discussed the patient's BMI. The BMI is above average. BMI management plan is completed. BMI Follow-up includes: nutrition counseling, exercise counseling and education provided. Assessment & Plan (08/01/2024 11:22 AM WIRE COATER): Discussed the patient's BMI. The BMI is above average. BMI management plan is completed. BMI Follow-up includes: nutrition counseling, exercise counseling and education provided. Assessment & Plan (06/11/2024 12:15 PM WIRE COATER): Discussed the patient's BMI. The BMI is above average. BMI management plan is completed. BMI Follow-up includes: nutrition counseling, exercise counseling and education provided. Assessment & Plan (03/18/2024 8:06 PM CDT): Discussed the patient's BMI. The BMI is above average. BMI management plan is completed. BMI Follow-up includes: nutrition counseling, exercise counseling and education provided. Assessment & Plan (09/07/2023 10:31 PM WIRE COATER): Discussed the patient's BMI. The BMI is above average. BMI management plan is completed. BMI Follow-up includes: nutrition counseling, exercise counseling and education provided. Patient has an obesity-related condition (not limited to: hypertension, obstructive sleep apnea, osteoarthritis, hyperlipidemia, diabetes, etc.). Therefore, morbid obesity may be documented for patients with a BMI between 35.00-39.99. Assessment & Plan (05/21/2023 3:46 PM WIRE COATER): Discussed the patient's BMI. The BMI is above average. BMI management plan is completed. BMI Follow-up includes: nutrition counseling, exercise counseling and education provided. Patient has an obesity-related condition (not limited to: hypertension, obstructive sleep apnea, osteoarthritis, hyperlipidemia, diabetes, etc.). Therefore, morbid obesity may be documented for patients with a BMI between 35.00-39.99. Assessment & Plan (07/22/2022 2:01 PM WIRE COATER): Discussed the patient's BMI. The BMI is above average. BMI management plan is completed. BMI Follow-up includes: nutrition counseling, exercise counseling and education provided. Patient has an obesity-related condition (not limited to: hypertension, obstructive sleep apnea, osteoarthritis, hyperlipidemia, diabetes, etc.). Therefore, morbid obesity may be documented for patients with a BMI between 35.00-39.99. Symptomatic anemia 05/28/2022 Assessment & Plan (09/07/2023 10:29 PM WIRE COATER): Known anemia. Has had transfusion. Continue to [...] Guajardo Assessment & Plan (06/14/2020 5:55 PM WIRE COATER): Refer back to Ortho. Offered PT. She [...] 09/11/2019 Assessment & Plan (06/11/2024 12:15 PM WIRE COATER): Mammogram order provided Assessment & Plan (08/23/2021 9:43 PM WIRE COATER): Mammogram order provided Assessment & Plan (09/26/2020 8:30 PM CDT): Mammogram order provided Assessment & Plan (09/11/2019 9:21 AM CDT): Mammogram order provided Sciatica of right side 06/17/2019 Assessment & Plan (06/17/2019 6:14 PM WIRE COATER): Voltaren gel Exercise/Start PT Followup if sxs worsen or don't improved. Vertigo 02/28/2019 Assessment & Plan (03/18/2024 8:06 PM CDT): Uses meclizine p.r.n. with good results Assessment & Plan (09/26/2020 8:29 PM CDT): antivert prn Assessment & Plan (03/15/2020 11:09 AM CDT): Persitent vertigo. 02/2020 CT head was essentially negative. She has finally agreed to vestibular therapy. Will still change neurology referral from [place] to [place] as patient able to arranage transportation [...] 09/2018 Assessment & Plan (08/26/2024 4:36 PM WIRE COATER): Encouraged patient to follow low fat/low chol diet like the Mediterranean diet. Increase good fats in the diet. Increase exercise. Monitor labs as needed. Continue Crestor Assessment & Plan (08/13/2024 1:17 PM WIRE COATER): Encouraged patient to follow low fat/low chol diet like the Mediterranean diet. Increase good fats in the diet. Increase exercise. Monitor labs as needed. Continue Crestor Assessment & Plan (06/11/2024 11:51 AM WIRE COATER): Stressed importance of continued A1c control to minimize the termite treater effects of diabetes. Bring accuchecks to office [...] 5.9. Tolerating the metformin without difficulty Continue [facility] 20 Assessment & Plan (03/18/2024 8:04 PM CDT): Stressed importance of continued A1c control to minimize the termite treater effects of diabetes. Bring accuchecks to office [...] Increase exercise. Monitor labs as needed. Continue [place] Assessment & Plan (09/07/2023 10:30 PM WIRE COATER): Encouraged patient to follow low fat/low chol diet like the Mediterranean diet. Increase good fats in the diet. Increase exercise. Monitor labs as needed. Continue with Crestor Assessment & Plan (05/21/2023 3:44 PM WIRE COATER): Encouraged patient to follow low fat/low chol diet like the Mediterranean diet. Increase good fats in the diet. Increase exercise. Monitor labs as needed. Continue [facility] Assessment & Plan (07/22/2022 1:49 PM WIRE COATER): Encouraged patient to follow low fat/low chol diet like the Mediterranean diet. Increase good fats in the diet. Increase exercise. Monitor labs as needed. Continue [place]or Assessment & Plan (08/23/2021 9:42 PM WIRE COATER): Encouraged patient to follow fat/low chol diet [...] 12/04/2018 Assessment & Plan (06/11/2024 12:15 PM WIRE COATER): Encouraged smoking cessation. Discussed 3 minutes. Reviewed options for assistance with cessation. Reviewed termite treater sequela associated with smoking. Pt declines assistance at this time but may contact the office at anytime for further help as they desire. Assessment & Plan (03/18/2024 8:05 PM CDT): Encouraged smoking cessation. Discussed 3 minutes. Reviewed options for assistance with cessation. Reviewed prison sequela associated with smoking. Pt declines assistance at this time but may contact the office at anytime for further help as they desire. Declines low-dose CT at this point Assessment & Plan (09/07/2023 10:30 PM WIRE COATER): Encouraged smoking cessation. Discussed 3 minutes. Reviewed options for assistance with cessation. Reviewed termite treater sequela associated with smoking. Pt declines assistance at this time but may contact the office at anytime for further help as they desire. Assessment & Plan (07/22/2022 1:47 PM WIRE COATER): Encouraged smoking cessation. Discussed 3 minutes. Reviewed options for assistance with cessation. Reviewed prison sequela associated with smoking. Pt declines assistance at this time but may contact the office at anytime for further help as they desire. Assessment & Plan (08/23/2021 9:42 PM WIRE COATER): Encouraged smoking cessation. Discussed 3 minutes. Reviewed options for assistance with cessation. Reviewed termite treater sequela associated with smoking. Pt declines assistance at this time but may contact the office at anytime for further help as they desire. Assessment & Plan (04/08/2021 2:56 PM CDT): Encouraged smoking cessation. Discussed 3 minutes. Reviewed options for assistance with cessation. Reviewed termite treater sequela associated with smoking. Pt declines assistance at this time but may contact the office at anytime for further help as they desire. Assessment & Plan (01/18/2021 11:39 PM CDT): Encouraged smoking cessation. Discussed 3 minutes. Reviewed options for assistance with cessation. Reviewed prison sequela associated with smoking. Pt declines assistance at this time but may contact the office at anytime for further help as they desire. Assessment & Plan (09/26/2020 8:30 PM CDT): Encouraged smoking cessation. Discussed 3 minutes. Reviewed options for assistance with cessation. Reviewed termite treater sequela associated with smoking. Pt declines assistance at this time but may contact the office at anytime for further help as they desire. Assessment & Plan (06/14/2020 5:55 PM WIRE COATER): Encouraged smoking cessation. Discussed 3 minutes. Reviewed options for assistance with cessation. Reviewed termite treater sequela associated with smoking. Pt declines assistance at this time but may contact the office at anytime for further help as they desire. Assessment & Plan (03/15/2020 11:10 AM CDT): Encouraged smoking cessation. Discussed 3 minutes. Reviewed options for assistance with cessation. Reviewed termite treater sequela associated with smoking. Pt declines assistance [...] Reviewed options for assistance with cessation. Reviewed prison sequela associated with smoking. Pt declines assistance at this time but may contact the office at anytime for further help as they desire. Assessment & Plan (06/17/2019 6:16 PM WIRE COATER): Encouraged smoking cessation. Discussed 3 minutes. Reviewed options for assistance with cessation. Reviewed prison sequela associated with smoking. Pt declines assistance at this time but may contact the office at anytime for further help as they desire. Assessment & Plan (01/30/2019 1:03 PM CDT): Encouraged smoking cessation. Discussed approx 3 minutes. Gastroesophageal reflux disease without esophagi tis 12/04/2018 Assessment & Plan (06/11/2024 12:15 PM WIRE COATER): Continue PPI Assessment & Plan (03/18/2024 8:05 PM CDT): Patient has been following closely with Dr. Guerin GI. She transferred and saw Dr. Nath and had an EGD done. States at this point her symptoms are pretty stable so will just continue to monitor continuing the Bentyl as needed and continue PPI p.r.n. Assessment & Plan (05/21/2023 3:44 PM WIRE COATER): Continue PPI p.r.n.. Continue per GI Assessment & Plan (07/22/2022 1:47 PM WIRE COATER): Continue per Dr. Guerin. She is currentl on omeprazole sucralfate. Will await his recommendations Assessment & Plan (08/23/2021 9:42 PM WIRE COATER): Continue PPI. She is unsure if the Dexilant will continue to be covered by her insurance so she will contact us with the letter she has at home with her options. Assessment & Plan (04/08/2021 2:55 PM CDT): Increased reflux symptoms. She is currently on Dexilant. Encouraged to continue with the same regimen. Will refer her to GI Dr. Zamora at [place] she is due for colonoscopy and may [...] 12/04/2018 Assessment & Plan (06/11/2024 12:15 PM WIRE COATER): Supplement Assessment & Plan (03/18/2024 8:06 PM CDT): Supplement Assessment & Plan (09/07/2023 10:30 PM WIRE COATER): Supplement Assessment & Plan (05/21/2023 3:44 PM WIRE COATER): Supplement Assessment & Plan (07/22/2022 1:47 PM WIRE COATER): Supplement Assessment & Plan (09/26/2020 8:14 PM CDT): supplement Assessment & Plan (09/11/2019 9:18 AM CDT): supplement Assessment & Plan (01/30/2019 1:02 PM CDT): supplement COPD (chronic obstructive pulmonary disease) 09/2018 Assessment & Plan (08/26/2024 4:37 PM WIRE COATER): COPD symptoms have been stable. Continue Breo and albuterol p.r.n. Assessment & Plan (08/13/2024 1:18 PM WIRE COATER): Continue with albuterol and Breo as breathing is stable Assessment & Plan (06/11/2024 12:15 PM WIRE COATER): Encouraged complete smoking cessation. Continue Breo and albuterol as needed Assessment & Plan (03/18/2024 8:06 PM CDT): Encouraged complete smoking cessation. Continue albuterol nebs and Breo as needed. Assessment & Plan (09/07/2023 10:30 PM WIRE COATER): Patient with COPD. Continue with albuterol and Breo. Assessment & Plan (05/21/2023 3:44 PM WIRE COATER): Continue Symbicort and albuterol p.r.n. continue Flonase Assessment & Plan (07/22/2022 1:47 PM WIRE COATER): Stressed smoking cessation. Continue Symbicort albuterol inhaler nebulizer p.r.n. Assessment & Plan (07/27/2021 7:15 AM WIRE COATER): Continues Symbicort/prn albuterol Still requires Neb Albuterol [...] basis as instructed. New prescription sent to [facility]. [id number] completed today Assessment & Plan (09/26/2020 8:14 PM CDT): Continue Symbicort and Albuterol prn Assessment & Plan (03/15/2020 11:10 AM CDT): Continue current regimen. Stop smoking Assessment & Plan (09/11/2019 9:18 AM CDT): STOP smoking. Continue with current regimen inhalers Albuterol/Symbicort Assessment & Plan (01/30/2019 12:54 PM CDT): Continue with Symbicort SHERRY (obstructive sleep apnea) 12/02/2018 Assessment & Plan (08/26/2024 4:36 PM WIRE COATER): Patient has been diagnosed with SHERRY. Awaiting titration study for treatment plan. Continue per Dr. Manuel Assessment & Plan (06/11/2024 11:43 AM WIRE COATER): Patient has established with Dr. Manuel. She had her sleep study test that did confirm sleep apnea. Awaiting the titration study Assessment & Plan (03/18/2024 8:03 PM CDT): Patient was diagnosed with sleep apnea at [facility] with Dr. Joseph. She would not wear the mask so sent the machine back. Has been untreated for many years. Continues to snore and have daytime sleepiness. Strongly encouraged re- evaluation. Willing to see Dr. Manuel at [facility]. Referral placed Assessment & Plan (09/07/2023 10:30 PM WIRE COATER): Continue with CPAP Assessment & Plan (07/22/2022 1:36 PM WIRE COATER): Continue CPAP Assessment & Plan (04/08/2021 2:56 [...] 12/02/2018 Assessment & Plan (08/13/2024 1:17 PM WIRE COATER): Continue to follow with Shakira in Darlene Etienne's office. She stopped her clonazepam couple [...] acutely. Assessment & Plan (06/11/2024 11:43 AM WIRE COATER): Continue per psychiatrist. She continues to take out her medications and they are updated on her chart Assessment & Plan (03/18/2024 8:04 PM CDT): Continue following with her psychiatrist for management of her mental health concerns. Assessment & Plan (09/07/2023 10:30 PM WIRE COATER): Continue per Psychiatry. Current medications include Klonopin Ingrezza Lexapro Vraylar 6 mg Lamictal and lithium Assessment & Plan (05/21/2023 3:45 PM WIRE COATER): Continue per psychiatrist Assessment & Plan (07/22/2022 1:45 PM WIRE COATER): Continue per psychiatrist. Patient states she is on clonazepam, latuda, Hydroxyzine, Cymbalta and Lexapro Assessment & Plan (08/23/2021 9:42 PM WIRE COATER): Per psychiatrist Assessment & Plan (04/08/2021 2:58 PM CDT): Continue per Psychiatry Assessment & Plan (06/14/2020 5:56 PM WIRE COATER): Unsure of exact diagnosis. Medication/treatment plan is [...] 025 Assessment & Plan (08/26/2024 4:46 PM WIRE COATER): Encouraged healthy lifestyle, good nutrition and exercise. Encouraged Calcium and Vitamin D and weight bearing exercise for bone health. Reviewed immunizations Reviewed age appropirate screenings. Elevated blood pressure reading 08/13/2024 08/26/2024 Assessment & Plan (08/13/2024 1:19 PM WIRE COATER): Advised patient it is difficult to know if she has true hypertension versus anxiety/panic. Recommend doing home readings and calling us in a couple of weeks with those readings. If she can not do them at home she can always come in but I know transportation is sometimes difficult. Need for influenza vaccination 06/11/2024 08/26/2024 Assessment & Plan (06/11/2024 12:16 PM WIRE COATER): Flu vaccine updated in the office today Annual physical exam 06/11/2024 02/23/2 025 Assessment & Plan (06/11/2024 12:16 PM WIRE COATER): Encouraged healthy lifestyle, good nutrition and exercise. [...] 03/17/2024 Assessment & Plan (09/07/2023 10:31 PM WIRE COATER): Encouraged healthy lifestyle, good nutrition and exercise. Encouraged Calcium and Vitamin D and weight bearing exercise for bone health. Reviewed immunizations. Reviewed age appropirate screenings. Medicare Wellness Documentation is completed within the chart BMI 38.0-38.9,adult 05/21/2023 09/07/19 24 Assessment & Plan (05/21/2023 3:46 PM WIRE COATER): Discussed the patient's BMI. The BMI is above average. BMI management plan is completed. BMI Follow-up includes: nutrition counseling, exercise counseling and education provided. BMI 39.0-39.9,adult 07/22/2022 05/04/20 23 Assessment & Plan (07/22/2022 1:48 PM WIRE COATER): Discussed the patient's BMI. The BMI is above average. BMI management plan is completed. BMI Follow-up includes: nutrition counseling, exercise counseling and education provided. Need for vaccination 07/22/2022 024 Assessment & Plan (05/21/2023 3:46 PM WIRE COATER): Flu vaccine updated in the office Assessment & Plan (07/22/2022 1:48 PM WIRE COATER): Flu vaccine at the office today Encounter for screening mamm ogram for malignant neoplasm of breast 07/22/2022 09/07/2023 Assessment & Plan (07/22/2022 1:48 PM WIRE COATER): Mammogram order provided Bloody diarrhea 04/08/2021 09/07/2023 [...] 09/07/2023 Assessment & Plan (07/22/2022 1:48 PM WIRE COATER): Encouraged healthy lifestyle, good nutrition and exercise. [...] 2016. Prefers to see a provider at [facility]. She is also having burning in the [...] 01/14/[id number] Assessment & Plan (08/23/2021 9:43 PM WIRE COATER): Obesity is unchanged. Discussed the patient's BMI. [...] 07/22/19 Assessment & Plan (07/27/2021 7:21 AM WIRE COATER): Obesity is unchanged. Discussed the patient's BMI. [...] onset of sxs. Check COVID test thru [facility] collection site in [place]. Treat sxs with Tylenol, Cough/cold medication otc [...] water often. If needed, use a hand commercial baker helper that contains at least 60% alcohol. Clean [...] 04/08/2021 Assessment & Plan (07/22/2020 11:47 AM WIRE COATER): Declines covid 19 testing at this time. Will start on ceftin 500mg bid x 7 days. She was advised to report to office if having otorrhea or worsening of symptoms. Need for immunization against influenza 06/14/2020 02/17/2021 Assessment & Plan (06/14/2020 5:57 PM WIRE COATER): Updated in office today BMI 37.0-37.9, adult 06/10/2020 024 Assessment & Plan (09/07/2023 10:31 PM WIRE COATER): Discussed the patient's BMI. The BMI is above average. BMI management plan is completed. BMI Follow-up includes: nutrition counseling, exercise counseling and education provided. Assessment & Plan (06/10/2020 1:35 PM WIRE COATER): Obesity is unchanged. Discussed the patient's BMI. The BMI is above average. BMI management plan is completed. BMI Follow-up includes: nutrition counseling, exercise counseling and education provided.Obesity is unchanged. Discussed the patient's BMI. Positive depression screening 06/10/2020 12/23/2024 Assessment & Plan (07/22/2020 11:47 AM WIRE COATER): Continue medication same Assessment & Plan (06/14/2020 5:56 PM WIRE COATER): Pt denies any suicidal or homicidal thoughts. [...] 03/17/2024 Assessment & Plan (09/07/2023 10:30 PM WIRE COATER): Probably multifactorial. Check labs and followup to re-evaluate Assessment & Plan (09/11/2019 9:21 AM CDT): Probably multifactorial. Check labs and followup to re-evaluate Hyperglycemia 09/11/2019 03/06/2024 Assessment & Plan (09/07/2023 10:30 PM WIRE COATER): Pre-diabetes/hyperglycemia is a precursor to Dm. Stressed [...] Encounters Date Type Department Care Team Description 04/08/[address] [place] [phone] Inez New [place] 02/22/2025 Results Follow-Up [address] [place] [phone] Inez New PA Urine culture Urine, clean voided 02/18/2025 3:35 PM CDT Clinical Support [address] [place] [phone] Dysuria (Primary Dx) 02/01/[address] [place] [phone] Inez New PA 02/01/2025 ACO Quality [facility] Accountable Care Organization [address] [place] [address] Alaina Rodríguez 02/01/[address] [address] Alaina Rodríguez Unsuccessful Phone Call 1 ([facility] dm eye ) from Last 3 Months Immunizations Immunization Administration [...] Depression Hypercholesteremia COPD (chronic obstructive pulmonary disease) Diabetes GERD (gastroesophageal reflux disease) Sinusitis Ear problems [...] on file Legal Sex Female 4:54 AM WIRE COATER Gender Identity Not on file Sexual Orientation [...] Cervical Cancer Screening 08/03/2018 08/03/2017, Zoster Vaccine (2 of 2) 11/06/2024 09/11/2024 Covid-19 Vaccine (3 - 2024-2 6 season) 2025 11/25/2020, 10/30/2020 Influenza Vaccine (#1) 2025 , 05/04/2023, 07/22/2022, Additional history exists Hemoglobin A1C 06/05/2025 12/04/2024, 05/05, 03/01/2024, Additional history exists Breast Cancer Screening-Mammogram 08/08/2025 08/08/2024, 07/19/2023, 11/16/2018, Additional history exists Albumin Creatinine Ratio, Urine 12/04/2025 5, 06/01/2024 Lipid Panel 12/04/2025 12/04/2024, 05/05, 03/01/2024, Additional history exists eGFR 12/04/2025 12/04/2024, 05/05, 03/01/2024, Additional history exists Depression Screening 12/12/2025 12/12/2024, 12/12/2024, 08/15/2024, Additional history exists Regular Well Visit/Exam 18-64 12/12/2025, 08/15/2024, 06/11/2024, Additional history exists Colon Cancer Screening-Colonoscopy 05/26/20262020, 05/26/2021 DTaP/Tdap/Td Vaccine (2 - Td or Tdap) 06/30/2027 06/30/2017 Procedures Procedure Name Priority Date/Time Associated Diagnosis Comments POCT URINALYSIS DIPSTICK Routine 02/18/2025 3:48 PM CDT Dysuria URINE CULTURE Routine 02/18/2025 3:40 PM CDT Dysuria COMPREHENSIVE METABOLIC PANEL Routine 12/04/2024 7:26 AM CDT Hypertension associated with diabetes (HCC) Type 2 diabetes mellitus with hyperlipidemia (HCC) Annual physical exam HEMOGLOBIN A1C Routine 12/04/2024 7:26 AM CDT Type 2 diabetes mellitus with hyperlipidemia (HCC) Annual physical exam LIPID PANEL Routine 12/04/2024 7:26 AM CDT Type 2 diabetes mellitus with hyperlipidemia (HCC) Annual physical exam ALBUMIN CREATININE RATIO, URINE Routine 12/04/2024 7:24 AM CDT Type 2 diabetes mellitus with hyperlipidemia (HCC) Annual physical exam SCREENING MAMMOGRAM BILATERAL W ALBERTO Schedule Routine, Read Routine (OP Routine) 08/08/2024 2:15 PM WIRE COATER Breast cancer screening by mammogram HM COLONOSCOPY Routine 05/26/2021 THINPREP RADIATION SAFETY OFFICER PAP (IMAGE GUIDED) LIQUID-BASED PREP Routine 08/03/2017 12:16 PM WIRE COATER from Last 3 Months or Most Recently Relevant to Health Maintenance Results * (ABNORMAL) POCT urinalysis dipstick (02/18/2025 3:48 PM CDT) Glucose, ur, POC Negative Negative Bilirubin, ur, POC Negative Negative Ketones, ur, POC Negative Negative Specific [place], POC 1.030 1.003 - 1.030 Blood, ur, POC Moderate(A) Negative pH, ur, POC 5.5 5.0 - 8.0 Protein, ur, POC Negative Negative Urobilinogen, urine, POC 0.2 0.2 - 1.0 mg/dL Nitrite, ur, POC Negative Negative Leukocytes, ur, POC Negative Negative Lot Number [id number] Urine 02/18/2025 3:48 PM CDT Inez [facility] POINT OF CARE TEST ORDERAB LES Final Result * Urine culture Urine, clean voided (02/18/2025 3:40 PM CDT) Pathologist [facility]rine culture [facility] Comment: CULTURE, URINE, ROUTINE Micro Number: [id number] Test Status: Final Specimen Source: Urine, clean catch Specimen Quality: Adequate Result: Mixed genital almas isolated. These superficial bacteria are not indicative of a urinary tract infection. No further organism identification is warranted on this specimen. If clinically indicated, recollect clean-catch, mid-stream urine and transfer immediately to Urine Culture Transport Tube. Urine, clean voided 02/18/2025 3:40 PM CDT 02/20/2025 12:36 AM CDT Inez [facility] LAB MICROBIOLOGY - GENERAL ORDERABLES Final Result [facility] [address] [place] [address] * Hemoglobin A1c (12/04/2024 7:26 AM CDT) Hgb A1C 5.3 <5.7 % of total Hgb [facility] Comment: For the purpose of screening for the presence of diabetes: <5.7% Consistent with the absence of diabetes 5.7-6.4% Consistent with increased risk for diabetes (prediabetes) > or =6.5% Consistent with diabetes This assay result is consistent with a decreased risk of diabetes. Currently, no consensus exists regarding use of hemoglobin A1c for diagnosis of diabetes in children. According to [place] Diabetes Association (ADA) guidelines, hemoglobin A1c <7.0% represents optimal control in non- diabetic patients. Different metrics may apply to specific patient populations. Standards of Medical Care in Diabetes(ADA). Blood 12/04/2024 7:26 AM CDT 12/04/2024 7:27 AM CDT [facility] - 12/04/2024 9:47 PM CDT FASTING:YES FASTING: YES us Inez [facility] LAB BLOOD ORDERABLES Final Result [facility] [address] [place] [address] * (ABNORMAL) Lipid panel (12/04/2024 7:26 AM CDT) Pathologist [facility] Cholesterol 145 <200 mg/dL [facility] HDL 44(L) > OR = 50 mg/dL [facility] Triglycerides 195(H) <150 mg/dL [facility] LDL 72 mg/dL (calc) [facility] Comment: Reference range: <100 Desirable range <100 mg/dL for primary prevention; <70 mg/dL for patients with CHD or diabetic patients with > or = 2 CHD risk factors. LDL-C is now calculated using the Arley-Devi calculation, which is a validated novel method providing better accuracy than the Friedewald equation in the estimation of LDL-C. Arley SS et al. FRANKY. 2013;310(19): 5561-3281 (http://education.Graph Alchemist/faq/PSA750) Chol/HDL ratio 3.3 <5.0 (calc) [facility] Non-HDL, (LDL+VLDL) 101 <130 mg/dL (calc) [facility] Comment: For patients with diabetes plus 1 major ASCVD risk factor, treating to a non-HDL-C goal of <100 mg/dL (LDL-C of <70 mg/dL) is considered a therapeutic option. Blood 12/04/2024 7:26 AM CDT 12/04/2024 7:27 AM CDT Narrative [facility] - 12/04/2024 9:47 PM CDT FASTING:YES FASTING: YES Inez [facility] LAB BLOOD ORDERABLES Final Result [facility] [address] [place] [address] * Comprehensive metabolic panel (12/04/2024 7:26 AM CDT) [facility] Glucose 87 65 - 99 mg/dL [facility] Comment: Fasting reference interval BUN 11 7 - 25 mg/dL [facility] Creatinine 0.67 0.50 - 1.03 mg/dL [facility] eGFR 104 > OR = 60 mL/min/1.7 3m2 [facility] BUN/creat ratio SEE NOTE: 6 - 22 (calc) [facility] Comment: Not Reported: BUN and Creatinine are within reference range. Sodium 137 135 - 146 mmol/L [facility] Potassium, pl 4.5 3.5 - 5.3 mmol/L [facility] Chloride 101 98 - 110 mmol/L [facility] CO2 27 20 - 32 mmol/L [facility] Calcium 9.3 8.6 - 10.4 mg/dL [facility] Protein, sr 6.5 6.1 - 8.1 g/dL [facility] Albumin 4.2 3.6 - 5.1 g/dL [facility] GLOBULIN 2.3 1.9 - 3.7 g/dL (calc) [facility] Alb/glob ratio 1.8 1.0 - 2.5 (calc) [facility] Bilirubin, total 0.6 0.2 - 1.2 mg/dL [facility] Alk phos 77 37 - 153 U/L [facility] AST 21 10 - 35 U/L [facility] ALT (SGPT) 21 6 - 29 U/L [facility] Blood 12/04/2024 7:26 AM CDT 12/04/2024 7:27 AM CDT Narrative [facility] - 12/04/2024 9:47 PM CDT FASTING:YES FASTING: YES Inez [facility] LAB BLOOD ORDERABLES Final Result Performing Organization Address City/[facility]/ZIP Co de Phone Number [facility] [address] [place] [address] * Albumin Creatinine Ratio, Urine (12/04/2024 7:24 [...] URINE ORDERABLES Final Result Performing Organization Address [facility] Co de Phone Number [facility] [address] [place] [address] * Screening Mammogram Bilateral W Alberto (08/08/2024 2:15 PM WIRE COATER) Anatomical Region Laterality Modality Breast Bilateral Mammography Impressions 08/08/2024 2:15 PM WIRE COATER 1.No mammographic evidence of malignancy 2.Routine screening recommended for 1 year BI-RADS Category 1 Negative Inez [facility] IMG MAMMO PROCEDURES Final Result * (ABNORMAL) HM COLONOSCOPY (05/26/2021) Historical Provider HEALTH MAINTENANCE Edited Result - Final * ThinPrep Gynecologic Pap Test (Image-guided), Liquid-based Preparation (08/03/2017 12:16 PM WIRE COATER) CLINICAL INFORMATION [facility] Comment:Information not prov ided LMP: 07/19 [facility] H[facility] RESULTS PREV. PAP: [facility] HISTORICAL RESULTS Comment:MANY YEARS AGO PREV. BX: [facility] HISTORICAL RESULTS Comment:INFORMATION NOT PROV IDED SOURCE: [facility] RESULTS Comment:Cervix, Endocervix STATEMENT OF ADEQUACY: [facility] HISTORICAL RESULTS Comment: Satisfactory for evaluation. Endocervical/transformation zone component present. INTERPRETATION/RESU LT: [facility] HISTORICAL RESULTS Comment:Negative for intraep ithelial lesion or malignancy. COMMENT: [facility]OR[facility] RESULTS Comment: This Pap test has been evaluated with computer assisted technology. COMMERCIAL CRABBER: [facility] HISTORICAL RESULTS Comment: YQ, CT(ASCP) CT screening location: [place] [address] [place] [address] 08/03/2017 12:1 6 PM WIRE COATER 08/09/2017 8:55 PM WIRE COATER Narrative [facility] HISTORICAL RESULTS - 08/09/2017 8:41 PM WIRE COATER 0 PERFORMING LAB: [facility] [address] [place] [address] Mahi Mcmahon MD Historical Provider LAB PATHOLOGY ORDERABLES Final Result [facility] HISTORICAL RESULTS from Last 3 Months or Most Recently Relevant to Health Maintenance Insurance [facility] MEDICARE [facility] MEDIC[facility] Address: [address] [address] [place] [address] [facility] MEDICARE AD[facility] MEDICARE Address: [address] [address] [place] [address] MEDICARE ADVANTAGE [facility] MEDICARE Address: [facility] [id number] [place] [address] Advance Directives For more information, please contact: [phone] * Full Code (Latest Code Status on File) Date Activated Date Inactivated Comments 05/29/2022 12:59 PM 05/30/2022 2:26 PM * Full Code Date Activated Date Inactivated Comments 05/28/2022 7:20 PM 05/29/2022 12:59 PM Care Teams Dryer Feeder Relationship Specialty Start Date End Date Inez New PA [address] [place] [address] PCP - General 09/14/17 Candido Guerin MD [address] [place] [address] Consulting Physician Gastroenterology 05/04/23 Anthony Diez MD [address] [place] [address] Consulting Physician Rheumatology 09/18/24
== END 2025-05-01 08:54 | disposition home or self-care (01) ==
LOC: ANHIMG 08:54
PROVIDERS: PCP Physician Assistant; Visit Provider Surgery
DX: K21.9 Gastro-esophageal reflux disease without esophagitis (principal)
CPT/HCPCS: 74240

== ENCOUNTER 2025-05-19 16:45 | Emergency (ER) | payer MEDICARE, MEDICAID, SELFPAY ==
--- OUTSIDE RECORDS SUMMARY | 2024-10-15 03:00 | XMS_ITS ---
Author Organization [facility] [employer] [facility] Address [facility] [address] [address] Care Team Providers Care Grants Analyst Name Role Phone Rachell New PA-C Primary Care Provider Unav ailable Kacy Marroquin Unavailable [phone] Ale Benedict Unavailable [phone] REASON FOR VISIT Therapy Visit Social History Sex Assigned At : Social History Observation Description Sex Assigned At Female Encounters Encounter Location Date Provider Diagnosis [facility] [place] [id number] [address] 10/15/2024 Ale Ramirez Plan Of Treatment Next Appt Details Provider Name:Kacy brown, 06/12/2025 10:15:00 AM, [facility], [address], [address], Provider Name:Ale Ramirez, 06/14/2025 10:00:00 AM, [address] [place] [address] [address], [address], Progress Notes * KEESHA RUCKERB:1970 ( 55 yo F)Acc No.[id number]:10/15/2024 Patient: Gordo JEREMIAH CUNHA Provider: Sebastian RAMIREZ LCSW :1970 A ge:54 Y S ex:Female Date:10/15/2024 Address:[address] [place] [address] [id number] Pcp:Rachell New PA-C Data: * Chief Complaints: * T herapy Visit Billing Information: * Procedure Codes: * Electronic signature of Roberta Ramirez LCSW on 2025 at 04:49 PM EVENT OPERATIONS MANAGER Sign off status: Pending Signatures: No Ad Hoc Signature Added * Provider: Sebastian RAMIREZ LCSW Date: 0 10/15/2024 Generated for Verna callahan/Katia/Avila on: 1 07/19/2024 04:49 PM EVENT OPERATIONS MANAGER
--- OUTSIDE RECORDS SUMMARY | 2025-05-14 02:00 | XMS_ITS ---
Author Organization [facility] [facility] Address [facility] [address] [facility] [address] [place] [address] Care Team Providers Care Pediatric Geneticist Name Role Phone Rachell New PA-C Primary Care Provider Unav ailable Kacy Marroquin Unavailable [phone] Ale Benedict Unavailable [phone] REASON FOR VISIT No calls or messages Social History Sex Assigned At : Social History Observation Description Sex Assigned At Female Encounters Encounter Location Date Provider Diagnosis [facility] [email or web address] [facility] [address] [facility] [address] [address] 05/14/2025 Ale Ramirez Plan Of Treatment Next Appt Details Provider Name:Kacy brown, 06/12/2025 10:15:00 AM, [facility] [address], [address], [address], Provider Name:Ale Ramirez, 06/14/2025 10:00:00 AM, [address] [place] [address] [address], [address], [address], Progress Notes * KEESHA RUCKERB:1970 ( 55 yo F)Acc No.[id number]:05/14/2025 Patient: JEREMIAH MERCADO Provider: Sebastian RAMIREZ LCSW :1970 A ge:54 Y S ex:Female Date:05/14/2025 Address:[address] [place] [address] [id number] Pcp:Rachell New PA-C Data: * Chief Complaints: * N o calls or messages Billing Information: * Procedure Codes: * Electronic signature of Roberta Ramirez LCSW on 2025 at 04:49 PM C WPF DEVELOPER Sign off status: Pending Signatures: No Ad Hoc Signature Added * Provider: Sebastian RAMIREZ LCSW Date: 07/14/2024 Generated for Verna callahan/Katia/Avila on: 07/19/2024 04:49 PM C WPF DEVELOPER
--- NOTE | ~2025-05-19 | CT_ITS ---
EXAMINATION: CT abdomen pelvis wo david, 05/19/2025 18:00 TALENT ACQUISITION RELATIONSHIP MANAGER HISTORY: abdominal pain COMPARISON: No comparisons available. TECHNIQUE: CT scan of the abdomen and pelvis was performed without IV contrast. One or more of the following dose reduction techniques were used: automated exposure control, adjustment of the mA and/or kV according to patient size, use of iterative reconstruction technique. Unless otherwise stated, incidental findings do not require dedicated follow up imaging FINDINGS: CT abdomen: LUNG BASES: The lung bases are clear. The visualized portions of the heart and pericardium are unremarkable. LIVER: Simple and complex appearing liver cysts the largest left lobe liver 2.5 x 2.5 cm. SPLEEN: Unremarkable, no splenomegaly. KIDNEYS: Right Kidney: Right renal calculi the largest 4 mm, no hydronephrosis or hydroureter. Left Kidney: Left renal calculi the largest 3 mm in pole, no hydronephrosis or hydroureter. ADRENAL GLANDS: Unremarkable. PANCREAS: Unremarkable. GALLBLADDER/BILIARY: Unremarkable. No biliary dilatation. STOMACH AND ESOPHAGUS: Visualized stomach and esophagus within normal limits. BOWEL/MESENTERY: No colitis or diverticulitis. Appendix normal. Mesentery and small bowel normal. ADENOPATHY/RETROPERITONEUM: No lymphadenopathy. AORTA/VASCULATURE: Normal caliber aorta. FREE FLUID OR FREE AIR: None. CT pelvis: SOLID ORGANS/REPRODUCTIVE: Unremarkable. BLADDER: Within normal limits. OSSEOUS STRUCTURES: No acute osseous abnormality.No suspicious lesions. OVERLYING SOFT TISSUES: Unremarkable. IMPRESSION: 1. No etiology identified to explain the patient's symptoms. Follow-up suggested if symptoms persist. Reviewed, dictated and finalized at location P. NT ACQUISITION RELATIONSHIP MANAGER IMPRESSION: 1. No etiology identified to explain the patient's symptoms. Follow-up suggeste d if symptoms persist.
--- OUTSIDE RECORDS SUMMARY | 2025-05-19 16:49 | XMS_ITS | Encounter Summary ---
Author Organization [facility] Facility Care Team Providers Care Gas Plant Specialist Name Role Phone Inez New Primary Care Provider [phone] Candido Guerin MD Unavailable [phone] Anthony Diez MD Unavailable [phone] Encounter Details Date Type Department Care Team (Latest Contact Info) Description 10/07/2017 Orders Only [facility] CLINCONV ProviderVishal MD [address] [place] [address] Social History Tobacco Use Types Packs/Day Years Used Date Smoking Tobacco: Never Assessed Comments Unknown Sex and Gender Information Value Date Recorded Sex Assigned at Not on file Legal Sex Female 4:54 AM 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
--- OUTSIDE RECORDS SUMMARY | 2025-05-19 16:49 | XMS_ITS | Encounter Summary ---
Author Organization 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
--- OUTSIDE RECORDS SUMMARY | 2025-05-19 16:49 | XMS_ITS | Encounter Summary ---
Author Organization [facility] Facility Care Team Providers Care Director Of Special Education Name Role Phone Inez New Primary Care Provider [phone] Candido Guerin MD Unavailable [phone] Anthony Diez MD Unavailable [phone] Encounter Details Date Type Department Care Team (Latest Contact Info) Description 09/26/2015 Orders Only [facility] CLINCONV ProviderVishal MD [address] [place] [address] Social History Tobacco Use Types Packs/Day Years Used Date Smoking Tobacco: Never Assessed Comments Unknown Sex and Gender Information Value Date Recorded Sex Assigned at Not on file Legal Sex Female 4:54 AM LAWYERS Gender Identity Not on file Sexual Orientation [...] documented as of this encounter Care Teams Director Of Special Education Relationship Specialty Start Date End Date Inez New PA [address] [place] [address] PCP - General 09/14/17 Candido Guerin MD [address] [place] [address] Consulting Physician Gastroenterology 05/04/23 Anthony Diez MD [address] [place] [address] Consulting Physician Rheumatology 09/18/24 documented as of this encounter
--- OUTSIDE RECORDS SUMMARY | 2025-05-19 16:49 | XMS_ITS | Clinical Summary ---
Author Organization [facility] Address [address] [place] [address] Care Team Providers Care Upholstery Auto Trimmer Name Role Phone Inez New Primary Care Provider [phone] Allergies No known active allergies Medications rosuvastatin [...] Diagnosis Comments COLONOSCOPY Routine 05/26/2021 5:23 AM EDITING INTERNSHIP from Last 3 Months or Most Recently Relevant to Health Maintenance Insurance MEDICAID [facility] OF [address] MEDICARE Care Teams Upholstery Auto Trimmer Relationship Specialty Start Date End Date Inez New PA [address] [place] [address] [address] [place] [address] PCP - General PHYSICIAN CORE SHAPER 05/26/21
--- OUTSIDE RECORDS SUMMARY | 2025-05-19 16:49 | XMS_ITS | Encounter Summary ---
Author Organization [facility] Healthcare Address [address] [place] [address] Care Team Providers Care Professor Of Graphic Design Name Role Phone Inez New Primary Care Provider [phone] Candido Guerin MD Unavailable [phone] Anthony Diez MD Unavailable [phone] Encounter Details Date Type Department Care Team (Late st Contact Info) Description 01/18/2025 Orders Only [facility] Health Information Management [address] [place] [address] Scanning, Provider Social History Tobacco Use Types [...] on file Legal Sex Female 4:54 AM ICT MANAGERS Gender Identity Not on file Sexual Orientation [...] on filedocumented in this encounter Care Teams Professor Of Graphic Design Relationship Specialty Start Date End Date Inez New PA [address] [place] [address] PCP - General 09/14/17 Candido Guerin MD [address] [place] [address] Consulting Physician Gastroenterology 05/04/23 Anthony Diez MD [address] [place] [address] Consulting Physician Rheumatology 09/18/24 documented as of this encounter
--- OUTSIDE RECORDS SUMMARY | 2025-05-19 16:49 | XMS_ITS | Encounter Summary ---
Author Organization [facility] Facility Care Team Providers Care Weight Training Instructor Name Role Phone Inez New Primary Care Provider [phone] Candido Guerin MD Unavailable [phone] Anthony Diez MD Unavailable [phone] Encounter Details Date Type Department Care Team (Latest Contact Info) Description 10/01/2016 Orders Only [facility] ProviderVishal MD [address] [place] [id number] Social History Tobacco Use Types Packs/Day Years Used Date Smoking Tobacco: Never Assessed Comments Unknown Sex and Gender Information Value Date Recorded Sex Assigned at Not on file Legal Sex Female 4:54 AM SPORTS MANAGER Gender Identity Not on file Sexual [...] documented as of this encounter Care Teams Weight Training Instructor Relationship Specialty Start Date End Date Inez New [place] [address] [place] [address] PCP - General 09/14/17 Candido Guerin MD [address] [place] [address] Consulting Physician Gastroenterology 05/04/23 Anthony Diez MD [address] [place] [address] Consulting Physician Rheumatology 09/18/24 documented as of this encounter
--- OUTSIDE RECORDS SUMMARY | 2025-05-19 16:50 | XMS_ITS | Encounter Summary ---
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 Gender Identity Not on file Sexual Orientation Not on file Occupation Industry Job Start Date Job End Date Disabled Not on file Not on file Not on file documented as of this encounter Functional Status * BP Location Answer Date of Assessment Author Right arm 11/01/2024 9:58 AM CDT Justyna Soto MA * BP Location Answer Date of Assessment Author Right arm 11/01/2024 9:58 AM CDT Justyna Soto MA documented as of this encounter Plan of [...] on filedocumented in this encounter Care Teams Voltage Inspector Relationship Specialty Start Date End Date Inez New PA [address] [place] [address] PCP - General 09/14/17 Candido Guerin MD [address] [place] [address] Consulting Physician Gastroenterology 05/04/23 Anthony Diez MD [address] [place] [address] Consulting Physician Rheumatology 09/18/24 documented as of this encounter
--- OUTSIDE RECORDS SUMMARY | 2025-05-19 16:50 | XMS_ITS | Encounter Summary ---
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 Gender Identity Not on file Sexual Orientation Not on file Occupation Industry Job Start Date Job End Date Disabled Not on file Not on file Not on file documented as of this encounter Plan of Treatment Not on file documented as of this encounter Procedures Procedure Name Priority Date/Time Associated Diagnosis Comments SCAN - RADIOLOGY/IMAGING 05/01/2025 documented in this encounter Results * SCAN - RADIOLOGY/IMAGING (05/01/2025) Anatomical Region Laterality Modality Other us Provider Scanning Final Result documented in this encounter Visit Diagnoses Not on filedocumented in this encounter Care Teams Tests Superintendent Relationship Specialty Start Date End Date Inez New PA [address] [place] [address] PCP - General 09/14/17 Candido Guerin MD [address] [place] [address] Consulting Physician Gastroenterology 05/04/23 Anthony Diez MD [address] [place] [address] Consulting Physician Rheumatology 09/18/24 documented as of this encounter
--- OUTSIDE RECORDS SUMMARY | 2025-05-19 16:50 | XMS_ITS | Encounter Summary ---
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 Gender Identity Not on file Sexual Orientation Not on file Occupation Industry Job Start Date Job End Date Disabled Not on file Not on file Not on file documented as of this encounter Plan of Treatment Not on file documented as of this encounter Procedures Procedure Name Priority Date/Time Associated Diagnosis Comments SCAN - RADIOLOGY/IMAGING 04/04/2025 documented in this encounter Results * SCAN - RADIOLOGY/IMAGING (04/04/2025) Anatomical Region Laterality Modality Other us Provider Scanning Edited Result - Final documented in this encounter Visit Diagnoses Not on filedocumented in this encounter Care Teams Court Stenographer Relationship Specialty Start Date End Date Inez New PA [address] [place] [address] PCP - General 09/14/17 Candido Guerin MD [address] [place] [address] Consulting Physician Gastroenterology 05/04/23 Anthony Diez MD [address] [place] [address] Consulting Physician Rheumatology 09/18/24 documented as of this encounter
[2025-05-19 16:51] VITALS: BP 141/90; PULSE 80; RESP 16; TEMP 36.6; O2SAT 99
--- OUTSIDE RECORDS SUMMARY | 2025-05-19 16:51 | XMS_ITS | Encounter Summary ---
Author Organization 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
--- OUTSIDE RECORDS SUMMARY | 2025-05-19 16:51 | XMS_ITS | Patient Health Record ---
Author Organization [facility] [employer] [facility] Address [address] [place] [address] Care Team Providers Care Auto Customize Painter Name Role Phone Rachell New PA-C Primary Care Provider Unarasheed ruvalcaba Kacy Marroquin Unavailable [phone] Vitaliy Ale Nelson Unavailable [phone] Allergies No Known Allergies Results Component Value [...] Duration) Notes Start Date End Date Status Caplyta 21 MG Capsule 1 capsule every evening Orally Once a day; Duration: 30 days she has a voucher for a free 30 day supply 05/03/2025 Active Rosuvastatin Calcium 20 MG Tablet Oral 11/22/2023 Active Symbicort 160-4.5 MCG/ACT Aerosol Inhalation 11/22/2023 Active ProAir HFA 108 (90 Base) MCG/ACT Aerosol Solution Inhalation 11/22/2023 Active Nebivolol HCl 5 MG Tablet TAKE 1 TABLET (5 MG TOTAL) BY MOUTH DAILY. Oral; Duration: 30 Days Active Cholecalciferol 25 MCG (1000 UT) Capsule Oral 11/22/2023 Active Fluticasone Propionate Diskus 50 MCG/ACT Aerosol Powder Breath Activated Inhalation *Reorder from creadsAnSyn for eRx and Interaction Alerts* 11/22/2023 Active Omeprazole 40 MG Capsule Delayed Release Oral 11/22/2023 Active Meloxicam 15 MG Tablet Oral 11/22/2023 Active Propranolol HCl 10 MG Tablet 1 tablet on an empty stomach Orally twice a day; Duration: 28 days Active Naproxen 375 MG Tablet Oral 11/22/2023 Not-Taking metroNIDAZOLE 0.75 % Gel 1 application Externally Twice a day Active Albuterol Sulfate (2.5 MG/3ML) 0.083% Nebulization Solution Inhalation 11/22/2023 Active Cetirizine HCl 10 MG Tablet Oral 11/22/2023 Active Breo Ellipta 200-25 MCG/INH Aerosol Powder Breath Activated Inhalation 11/22/2023 Active Diclofenac Sodium 1% Gel Transdermal 11/22/2023 Not-Taking metFORMIN HCl 500 MG Tablet 1 tablet with a meal Orally Once a day Active lamoTRIgine 200 mg Tablet 1 tablet oral twice a day Active FLUoxetine HCl 20 MG Capsule 1 CAPSULE ORALLY ONCE A DAY TOTAL DAILY DOSE 60 MG; Duration: 28 days Active FLUoxetine HCl 40 MG Capsule 1 capsule every Morning Oral Once a day Active hydrOXYzine HCl 25 MG Tablet 1 tablet Oral twice a day; Duration: 28 days As needed 05/03/2025 Active Cyclobenzaprine HCl 10 MG Tablet Oral 11/22/2023 Not-Taking HYDROcodone-Acetamino phen 5-325 MG Tablet Oral 11/22/2023 Not-Rene ing Dexilant 60 MG Capsule Delayed Release Oral 11/22/2023 Not-Taking [place] Carbonate ER 300 mg Tablet Extended Release 1 tablet at bedtime oral daily Active hydrOXYzine HCl 25 MG Tablet TAKE 1 TABLET BY MOUTH TWICE A DAY NEEDED; Duration: 84 Active Immunizations Vaccine Route Administration Date Status Comme nts Influenza, injectable, MDCK, preservative free Unknown 05/14/2019 Administered Influenza, quadrivalent, split virus Unknown 05/14/2019 Administered Source [facility] Code: V00 - [facility] eligibility not determined/unknown Influenza, unspecified formulation Unknown 07/02/2019 Administered Novel [id number], preservative free Unknown 06/10/2020 Administered Novel [id number], preservative free Unknown 04/06/2021 Administered Pfizer Biontech Covid-19 Vaccine 2nd dose Unknown 10/30/2020 Administered Pfizer [employer] Covid-19 Vaccine 2nd dose Unknown 11/25/2020 Administered Tdap Unknown 06/30/2017 Administered Social History Tobacco Use: Social History Observation Description Date Details (start date - stop date) Light tobacco s moker NA - NA Sex Assigned At : Social History Observation Description Sex Assigned At Female Social History Miscellaneous: Social Info Question Answer Notes Advance Care Planning Are you your own decision-maker Yes Do you have Power of Brim Plater for Health or [facility]? No Safety issues: Are there any firearms [...] Answer Notes Tobacco Control (Standard) Tobacco use: Light tobacco smoker How often [...] NoDo you have a medical power of general science teacher?: NoPublic Health and TravelHave you been to [...] NoDo you have a medical power of general science teacher?: NoPublic Health and TravelHave you been to [...] NoDo you have a medical power of general science teacher?: NoPublic Health and TravelHave you been to [...] NoDo you have a medical power of general science teacher?: NoPublic Health and TravelHave you been to [...] NoDo you have a medical power of general science teacher?: NoPublic Health and TravelHave you been to [...] NoDo you have a medical power of general science teacher?: NoPublic Health and TravelHave you been to [...] NoDo you have a medical power of general science teacher?: NoPublic Health and TravelHave you been to [...] NoDo you have a medical power of general science teacher?: NoPublic Health and TravelHave you been to [...] NoDo you have a medical power of general science teacher?: NoPublic Health and TravelHave you been to [...] depressed bipolar I disorder without psychotic features (05009008) Bipolar disorder, current episode depressed, severe, without psychotic features (F31.4) 4 Active confirmed Problem Bipolar disorder (69311599) Bipolar disorder, unspecified (F31.9) Active confirmed Problem Generalized anxiety disorder (34236723) Generalized anxiety disorder (F41.1) 4 Active confirmed Problem Posttraumatic stress disorder (16702298) Post-traumatic stress disorder, chronic (F43.12) Active confirmed Problem Borderline personality disorder (39543790) Borderline personality disorder (F60.3) 4 Active confirmed Problem Obstructive sleep apnea syndrome (disorder) (43736507) Obstructive sleep apnea (adult) (pediatric) (G47.33) 4 Active confirmed Problem Tardive dyskinesia (194778597) Tardive dyskinesia (G24.01) Active confirmed Problem Tobacco use (156469809) Nicotine use (Z72.0) Active confirmed Problem Essential hypertension (69077931) Benign essential HTN (I10) Active confirmed Vital Signs Heart Rate 88 /min 05/03/2025 Height-cm 170.18 cm 05/03/2025 Blood pressure diastolic 81 mm Hg 05/03/2025 Weight-kg 102.51 kg 05/03/2025 Height 67.00 in 05/03/2025 Blood pressure systolic 117 mm Hg 05/03/2025 Weight 226 lbs 05/03/2025 BMI 35.39 kg/m2 05/03/2025 Encounters Encounter Location Date Provider Diagnosis [facility] [employer] [place] [id number] [address] 05/14/2025 Ale Nelson [facility] [address] [address] 05/24/2024 Ale Nelson Borderline personality disorder F60.3 ; Severe episode of recurrent major depressive disorder, without psychotic features F33.2 and Post-traumatic stress disorder, chronic F43.12 [facility] [place] [id number] [address] 06/01/2024 Kacy Marroquin Bipolar disorder, current episode depressed, severe, without psychotic features F31.4 ; Generalized anxiety disorder F41.1 ; Post-traumatic stress disorder, chronic F43.12 ; Tardive dyskinesia G24.01 ; Borderline personality disorder F60.3 ; Benzodiazepine dependence F13.20 and Obstructive sleep apnea (adult) (pediatric) G47.33 [facility] [place] [address] [address] 06/19/2024 Ale Nelson Generalized anxiety disorder F41.1 ; Borderline personality disorder F60.3 and Post-traumatic stress disorder, chronic F43.12 [facility] [address] [address] 07/31/2024 Ale Nelson Bipolar disorder, current episode depressed, severe, without psychotic features F31.4 ; Generalized anxiety disorder F41.1 and Borderline personality disorder F60.3 [facility] [place] [address] [address] 07/31/2024 Kacy Marroquin Bipolar disorder, current episode depressed, severe, without psychotic features F31.4 ; Generalized anxiety disorder F41.1 ; Post-traumatic stress disorder, chronic F43.12 ; Tardive dyskinesia G24.01 ; Borderline personality disorder F60.3 and Obstructive sleep apnea (adult) (pediatric) G47.33 [facility] [address] [place] [address] 08/16/2024 Ale Nelson Generalized anxiety disorder F41.1 ; Bipolar disorder, current episode depressed, severe, without psychotic features F31.4 ; Post-traumatic stress disorder, chronic F43.12 and Borderline personality disorder F60.3 [facility] [address] [place] [address] 08/24/2024 Kacy Marroquin Generalized anxiety disorder F41.1 ; Bipolar disorder, current episode depressed, severe, without psychotic features F31.4 ; Post-traumatic stress disorder, chronic F43.12 ; Tardive dyskinesia G24.01 ; Borderline personality disorder F60.3 ; Nicotine dependence with current use F17.200 ; Benign essential HTN I10 and Obstructive sleep apnea (adult) (pediatric) G47.33 [facility] [address] [place] [address] 08/28/2024 Ale Nelson Borderline personality disorder F60.3 ; Bipolar disorder, current episode depressed, severe, without psychotic features F31.4 ; Post-traumatic stress disorder, chronic F43.12 and Generalized anxiety disorder F41.1 [facility] [address] [facility] [address] [place] [address] 09/03/2024 Ale Nelson Post-traumatic stress disorder, chronic F43.12 ; Bipolar disorder, current episode depressed, severe, without psychotic features F31.4 ; Generalized anxiety disorder F41.1 and Borderline personality disorder F60.3 [facility] [address] [place] [address] 09/19/2024 Kacy Marroquin Generalized anxiety disorder F41.1 ; Borderline personality disorder F60.3 ; Post-traumatic stress disorder, chronic F43.12 ; Bipolar disorder, current episode depressed, severe, without psychotic features F31.4 ; Benign essential HTN I10 ; Obstructive sleep apnea (adult) (pediatric) G47.33 ; Nicotine use Z72.0 and Encounter for screening for depression Z13.31 [facility] [place] [address] [facility] [address] [facility] [address] [place] [address] 11/16/2024 Ale Nelson Bipolar disorder, current episode depressed, severe, without psychotic features F31.4 ; Post-traumatic stress disorder, chronic F43.12 ; Borderline personality disorder F60.3 ; Generalized anxiety disorder F41.1 and Encounter for screening for depression Z13.31 [facility] [employer] [address] 11/19/2024 Kacy Marroquin Bipolar disorder, current episode depressed, severe, without psychotic features F31.4 ; Generalized anxiety disorder F41.1 ; Post-traumatic stress disorder, chronic F43.12 ; Borderline personality disorder F60.3 ; Obstructive sleep apnea (adult) (pediatric) G47.33 ; Nicotine use Z72.0 ; Benign essential HTN I10 and Encounter for screening for depression Z13.31 [facility] [employer] [address] 12/24/2024 Kacy Marroquin Bipolar disorder, current episode depressed, severe, without psychotic features F31.4 ; Generalized anxiety disorder F41.1 ; Post-traumatic stress disorder, chronic F43.12 ; Borderline personality disorder F60.3 ; Nicotine use Z72.0 ; Obstructive sleep apnea (adult) (pediatric) G47.33 ; Benign essential HTN I10 and Encounter for screening for depression Z13.31 [facility] [employer] [address] [address] 02/08/2025 Ale Nelson Borderline personality disorder F60.3 ; Bipolar disorder, current episode depressed, severe, without psychotic features F31.4 ; Post-traumatic stress disorder, chronic F43.12 and Generalized anxiety disorder F41.1 [facility] [employer] [address] 02/08/2025 Kacy Marroquin Generalized anxiety disorder F41.1 ; Bipolar disorder, current episode depressed, severe, without psychotic features F31.4 ; Borderline personality disorder F60.3 and Obstructive sleep apnea (adult) (pediatric) G47.33 [facility] [place] [address] [facility] [address] [address] 04/25/2025 Ale Nelson Bipolar disorder, current episode depressed, severe, without psychotic features F31.4 ; Generalized anxiety disorder F41.1 and Post-traumatic stress disorder, chronic F43.12 [facility], [facility] [address] [place] [address] 05/03/2025 Kacy Marroquin Generalized anxiety disorder F41.1 ; Bipolar disorder, current episode depressed, severe, without psychotic features F31.4 ; Borderline personality disorder F60.3 and Obstructive sleep apnea (adult) (pediatric) G47.33 [facility], [facility] [address] [place] [address] 08/23/2024 Kacy Marroquin [facility], [facility] [address] [place] [address] 12/28/2024 Kacy Marroquin [facility], [facility] [address] [place] [address] 03/08/2025 Kacy Marroquin Generalized anxiety disorder F41.1 [facility], [facility] [address] [place] [address] 05/15/2025 Kacy Marroquin [facility], [facility] [address] [place] [address] 05/24/2024 [facility], [facility] [address] [place] [address] 06/08/2024 Kacy Marroquin [facility], [facility] [address] [place] [address] 06/11/2024 Kacy Marroquin Bipolar disorder, current episode depressed, severe, without psychotic features F31.4 ; Tardive dyskinesia G24.01 and Generalized anxiety disorder F41.1 [facility], [facility] [address] [place] [address] 06/18/2024 Kacy Marroquin [facility], [facility] [address] [place] [address] 08/01/2024 Kacy Marroquin [facility], [facility] [address] [place] [address] 08/03/2024 Kacy Marroquin Generalized anxiety disorder F41.1 [facility], [facility] [address] [place] [address] 08/22/2024 Kacy Marroquin [facility], [facility] [address] [place] [address] 08/24/2024 Kacy Marroquin [facility] [employer] [address] [place] [address] 10/15/2024 Kacy Marroquin [facility] [employer], [facility] [address] [place] [address] 12/25/2024 Kacy Marroquin Assessments Encounter Date Diagnosis [...] she will consider getting an implant at [facility]. 05/24/2024 Severe episode of recurrent major [...] she will consider getting an implant at [facility]. 06/01/2024 Bipolar disorder, current episode depressed, [...] sorted out. Plans to discuss medications with warping mill operator as upcoming appointment Plan: - Continue lithium 300mg daily - Continue fluoxetine 40mg daily - Continue lamotrigine 200mg twice daily - Monitor for effectiveness and side effects - Reassess need for medication adjustments after cardiology consultation Anxiety Disorder Assessment: Patient experiences ongoing anxiety with panic attacks, particularly during car rides. Reports some improvement with current management. Using propranolol and gmnm-hzl-audldi r anxiety patches (Blaise patches with Ashwagandha [...] use - Consider prazosin for nightmares, pending warping mill operator approval due to potential blood pressure effects [...] and blood pressure at home - Obtain warping mill operator's input on psychiatric medications that may affect [...] ng to a new medication Medication considered [id number] Sertraline (Zoloft), CYP2D5 Aripiprazole (Abilify), CYP2D6 Brexpiprazole [...] 04/25/2025 Generalized anxiety disorder (ICD-10 - F41.1) 05/03/2025 Generalized anxiety disorder (ICD-10 - F41.1) 02/08/2025 Post-traumatic stress disorder, chronic (ICD-10 - F43.12) 04/25/2025 Post-traumatic stress disorder, chronic (ICD-10 - F43.12) 05/03/2025 Bipolar disorder, current episode depressed, severe, without [...] sorted out. Plans to discuss medications with warping mill operator as upcoming appointment Plan: - Continue lithium 300mg daily - Continue fluoxetine 40mg daily - Continue lamotrigine 200mg twice daily - Monitor for effectiveness and side effects - Reassess need for medication adjustments after cardiology consultation Anxiety Disorder Assessment: Patient experiences ongoing anxiety with panic attacks, particularly during car rides. Reports some improvement with current management. Using propranolol and vehi-ohb-yroeii r anxiety patches (Blaise patches with Ashwagandha [...] use - Consider prazosin for nightmares, pending warping mill operator approval due to potential blood pressure effects [...] and blood pressure at home - Obtain warping mill operator's input on psychiatric medications that may affect [...] she will consider getting an implant at [facility]. 06/01/2024 Post-traumatic stress disorder, chronic (ICD-10 [...] sorted out. Plans to discuss medications with warping mill operator as upcoming appointment Plan: - Continue lithium 300mg daily - Continue fluoxetine 40mg daily - Continue lamotrigine 200mg twice daily - Monitor for effectiveness and side effects - Reassess need for medication adjustments after cardiology consultation Anxiety Disorder Assessment: Patient experiences ongoing anxiety with panic attacks, particularly during car rides. Reports some improvement with current management. Using propranolol and adfb-hsn-halfxx r anxiety patches (Blaise patches with Ashwagandha [...] use - Consider prazosin for nightmares, pending warping mill operator approval due to potential blood pressure effects [...] and blood pressure at home - Obtain warping mill operator's input on psychiatric medications that may affect [...] 02/08/2025 Generalized anxiety disorder (ICD-10 - F41.1) 05/03/2025 Borderline personality disorder (ICD-10 - F60.3) 05/03/2025 Obstructive sleep apnea (adult) (pediatric) (ICD-10 - G47.33) 12/24/2024 Nicotine use (ICD-10 - Z72.0) 11/16/2024 [...] sorted out. Plans to discuss medications with warping mill operator as upcoming appointment Plan: - Continue lithium 300mg daily - Continue fluoxetine 40mg daily - Continue lamotrigine 200mg twice daily - Monitor for effectiveness and side effects - Reassess need for medication adjustments after cardiology consultation Anxiety Disorder Assessment: Patient experiences ongoing anxiety with panic attacks, particularly during car rides. Reports some improvement with current management. Using propranolol and zrjb-xuu-lewzse r anxiety patches (Blaise patches with Ashwagandha [...] use - Consider prazosin for nightmares, pending warping mill operator approval due to potential blood pressure effects [...] and blood pressure at home - Obtain warping mill operator's input on psychiatric medications that may affect [...] sorted out. Plans to discuss medications with warping mill operator as upcoming appointment Plan: - Continue lithium 300mg daily - Continue fluoxetine 40mg daily - Continue lamotrigine 200mg twice daily - Monitor for effectiveness and side effects - Reassess need for medication adjustments after cardiology consultation Anxiety Disorder Assessment: Patient experiences ongoing anxiety with panic attacks, particularly during car rides. Reports some improvement with current management. Using propranolol and pstv-wof-glsnyx r anxiety patches (Blaise patches with Ashwagandha [...] use - Consider prazosin for nightmares, pending warping mill operator approval due to potential blood pressure effects [...] and blood pressure at home - Obtain warping mill operator's input on psychiatric medications that may affect [...] sorted out. Plans to discuss medications with warping mill operator as upcoming appointment Plan: - Continue lithium 300mg daily - Continue fluoxetine 40mg daily - Continue lamotrigine 200mg twice daily - Monitor for effectiveness and side effects - Reassess need for medication adjustments after cardiology consultation Anxiety Disorder Assessment: Patient experiences ongoing anxiety with panic attacks, particularly during car rides. Reports some improvement with current management. Using propranolol and tdhj-fsr-uyytsr r anxiety patches (Blaise patches with Ashwagandha [...] use - Consider prazosin for nightmares, pending warping mill operator approval due to potential blood pressure effects [...] and blood pressure at home - Obtain warping mill operator's input on psychiatric medications that may affect [...] sorted out. Plans to discuss medications with warping mill operator as upcoming appointment Plan: - Continue lithium 300mg daily - Continue fluoxetine 40mg daily - Continue lamotrigine 200mg twice daily - Monitor for effectiveness and side effects - Reassess need for medication adjustments after cardiology consultation Anxiety Disorder Assessment: Patient experiences ongoing anxiety with panic attacks, particularly during car rides. Reports some improvement with current management. Using propranolol and zyib-wtp-qvcnqp r anxiety patches (Lbaise patches with Ashwagandha and PIEDAD) as needed. [...] use - Consider prazosin for nightmares, pending warping mill operator approval due to potential blood pressure effects [...] and blood pressure at home - Obtain warping mill operator's input on psychiatric medications that may affect [...] sorted out. Plans to discuss medications with warping mill operator as upcoming appointment Plan: - Continue lithium 300mg daily - Continue fluoxetine 40mg daily - Continue lamotrigine 200mg twice daily - Monitor for effectiveness and side effects - Reassess need for medication adjustments after cardiology consultation Anxiety Disorder Assessment: Patient experiences ongoing anxiety with panic attacks, particularly during car rides. Reports some improvement with current management. Using propranolol and rwzg-lgu-vxdtvq r anxiety patches (Blaise patches with Ashwagandha [...] use - Consider prazosin for nightmares, pending warping mill operator approval due to potential blood pressure effects [...] and blood pressure at home - Obtain warping mill operator's input on psychiatric medications that may affect [...] family stressors and being alone, leading to metalsmith visits and hospitalizations. - Plan: - Continue [...] - Plan: - Continue therapy sessions with COTTRELL OPERATOR - Explore trauma-focused therapies (e.g., EMDR) to [...] - Plan: - Proceed with the scheduled cooler man appointment on the for further evaluation and management. Weight Loss, Poor Appetite, and Vomiting - Assessment: The patient reports losing weight, not eating much, experiencing dry heaves, and frequent vomiting. - Plan: - Monitor the patient's weight and nutritional intake. - Consider referral to a travel counselor automobile club for dietary guidance and support. - Evaluate [...] Recommend the patient to consult with a ball truing machine operator for further evaluation and potential diagnosis. - [...] normal. - Plan: - Schedule follow-up with cooler man - Recommend reducing alcohol consumption - Follow [...] is currently under the care of a pmo lead for further evaluation. Plan: - Await results [...] psychiatric medications: - Lamotrigine - Fluoxetine - [place] - Monitor for worsening of mood symptoms [...] signs of alcohol abuse or dependence 12/24/2024 Other Nieves Gordon, a patient with a history of [...] - Lamotrigine 200 mg twice daily - [place] 300 mg at bedtime - Fluoxetine 40 [...] Continue Lamotrigine 200mg PO BID - Continue [place] 300mg PO at bedtime - Follow up [...] due to past issues with overuse. 04/25/2025 Hamilton Pickett presents with depressive symptoms and catastrophic thinking [...] she has been taking with her doctor. 05/03/2025 Other Nieves Gordon is a female patient with bipolar disorder presenting with worsening depression and high anxiety despite current medication regimen. Bipolar depression Patient reports continued severe depression despite current treatment with Prozac 60 mg daily (20 mg evening, 40 mg morning), lamotrigine 200 mg twice daily, and lithium 300 mg at bedtime. Previous trial of Rexulti and olanzapine were discontinued due to movement side effects including tongue movements. Current regimen has not provided adequate symptom relief over the past several months with minimal medication changes attempted. Plan: - Start Caplyta 10.5 mg at bedtime for 2 weeks, then increase to 21 mg at bedtime - Samples provided - Discontinue Prozac 20 mg evening dose (continue 40 mg morning dose) - Continue lamotrigine 200 mg twice daily - Continue lithium 300 mg at bedtime - Follow-up in 4 weeks to monitor response Anxiety Patient reports very high anxiety levels with physical manifestations including restless leg movements and elevated heart rate during sleep (113 bpm noted on smartwatch). Currently using hydroxyzine as needed for nighttime anxiety and racing heart, though not frequently. Plan: - Continue hydroxyzine as needed for sleep and anxiety symptoms - Monitor response to Caplyta as it may provide additional anxiety relief Medical comorbidities Recent upper GI study revealed multiple findings including 2 liver cysts, kidney stones, esophagitis, and recurrent small hernia following January surgery. Patient experiencing morning dry heaves, possibly related to esophagitis or acid reflux. Scheduled to see surgeon in approximately 2 weeks for hernia evaluation. Plan: - Continue scheduled follow-up with surgeon for hernia management Medical Decision Making Nieves Gordon is a female patient with bipolar disorder presenting with worsening depression and very high anxiety despite current treatment with Prozac, lamotrigine, and lithium. The patient reports recent medical findings including liver cysts, kidney stones, recurrent hernia, and esophagitis from upper GI studies, with ongoing morning heaves likely related to acid reflux. Current psychiatric medication regimen includes Prozac 60mg daily (20mg evening, 40mg morning), lamotrigine 200mg twice daily, lithium 300mg at bedtime, and hydroxyzine as needed, with the patient reporting no significant improvement from the additional Prozac dosing. Previous trials of Rexulti and olanzapine were discontinued due to movement-related side effects including tongue movements. Given the lack of response to current antidepressant augmentation and history of movement disorders with previous antipsychotics, consideration of Caplyta as a newer atypical antipsychotic with lower risk of extrapyramidal symptoms and potential benefits for bipolar depression and anxiety is warranted. The decision to discontinue the additional Prozac is based on lack of perceived benefit, and maintaining current mood stabilizers (lamotrigine and lithium) provides a stable foundation for introducing the new medication. Plan Of Treatment Pending Test Test Name Order Date Cytochrome P450 2D6 Genotyping 5 Cytochrome P450 2C9 Genotyping 5 Cytochrome P450 2C19 12/24/2024 Next Appt Details Provider Name:Kacy brown, 06/12/2025 10:15:00 AM, [address], [facility] [address], [place], [address], Provider Name:Ale Nelson, 06/14/2025 10:00:00 AM, [address], [facility] [address], [place], [address], Insurance Providers Payer Name Payer Address Payer Phone Subscriber Number Group Number Insured Name Patient Relationship to Insured Coverage Start Date Coverage End Date [facility] [address] [place] [phone] [id number] NIEVES GORDON Self - patient is the insured Medicaid-[place] Medicaid [address] [address] [place] [address] [id number] NIEVES GORDON Self - patient is the [...]
[2025-05-19 17:41] LABS: Hematocrit 43.4 % (37.0-47.0); Hemoglobin 13.7 g/dL (12.0-15.0); Immature Granulocyte Percent A 0.2 % (0-0.5); Lymphocytes Absolute Auto 1.25 K/mm3 (0.9-3.2); Mean Corpuscular HGB Conc 31.6 g/dl (32-36); Mean Corpuscular Hemoglobin 31.4 pg (26-34); Mean Corpuscular Volume 99.3 fl (80-100); Nucleated Red Blood Cells Absolute Auto 0.000 K/mm3 (0.0-0.012); Nucleated Red Blood Cells Perc 0.0 % (0.0-0.2); Platelet Count Result 241 k/mm3 (150-375); Red Blood Count 4.37 M/mm3 (4.2-5.4); White Blood Count 6.5 K/mm3 (4.5-10.0)
[2025-05-19 17:55] LABS: Add Urine Microscopic? YES; Appearance Urine Cloudy (Clear); Budding Yeast Urine Present /hpf; Glucose Urine UA Negative (Negative); Leukocyte Esterase Ur 1+ LEU/UL (Negative); Need Manual Microscopic Reviewed; Nitrate Urine Negative (Negative); Non Pathogenic Casts 0-2; Specific Grav Ur 1.014 (1.001-1.035)
[2025-05-19 17:57] LABS: Alanine Aminotransferase 33 U/L (6-35); Albumin Level 4.2 g/dL (3.5-5.1); Alkaline Phosphatase 84 U/L (38-126); Anion Gap 6 mmol/L (4-12); Aspartate Amino Transferase 37 U/L (14-36); Bilirubin,Total 0.8 mg/dL (0.2-1.3); Blood Urea Nitrogen 8 mg/dL (7-17); Calcium 9.3 mg/dL (8.4-10.2); Carbon Dioxide 26 mmol/L (22-30); Chloride 104 mmol/L (98-107); Estimated CRCL calculation 79 ml/min; Estimated Glomerular Filt Rate > 60; Glucose 107 mg/dL (65-110); Lipase 88 U/L (23-300); Potassium 4.1 mmol/L (3.4-5.0); Sodium 136 mmol/L (137-145); Total Protein 7.0 g/dL (6.3-8.2)
--- NOTE | 2025-05-19 18:18 | ED_ITS ---
HPI - Abdominal Pain General Chief Complaint: Abdominal Pain Stated Complaint: abd pain Time Seen by Provider: 05/19/25 17:09 History of Present Illness HPI narrative: 55-year-old female presenting with abdominal pain. Patient states she has been having abdominal pains since undergoing hiatal hernia surgery in January here with Dr. Vasquez. She reports the pain has increased today and is accompanied by bloating, nausea, and diarrhea. No prior removal of gallbladder or appendix. She also reports hematuria today. Patient denies fevers/chills, vomiting, melena/hematochezia, chest pain/ shortness of breath. Last bowel movement was today and patient is still able to pass flatulence. Related Data Home Medications ?Medication ?Instructions ?Recorded ?Confirmed ?Last Taken ?Type albuterol sulfate 90 mcg/actuation 1 puff inhalation A S DIRECTED 11/22/19 02/15/25 01/22/25 History aerosol inhaler (Ventolin HFA) escitalopram oxalate 5 mg tablet 5 mg PO DIRECTED 0 11/22/19 02/15/25 01/22/25 History lamotrigine 150 mg tablet 150 mg PO Q12H 11/22/1902/0101/22/25 History meclizine 12.5 mg tablet 12.5 mg PO QID PRN dizziness 11/22/19 02/15/25 01/22/25 History fluticasone furoate 200 1 inh inhalation DIRECTED 11/23/23 02/15/25 01/22/25 History mcg-vilanterol 25 mcg/dose inhalation powder (Breo Ellipta) lisinopril 20 mg tablet 20 mg PO DAILY 08/20/2402/0101/22/25 History propranolol 10 mg tablet 10 mg PO DAILY 08/20/2402/0101/22/25 History rosuvastatin 20 mg tablet 20 mg PO DAILY 01/17/2502/0101/22/25 History doxycycline hyclate 20 mg tablet 20 mg PO Q12H 5 02/15/25 01/22/25 History metronidazole 0.75 % topical gel 1 applic topical BID rosacea 01/23/25 02/15/25 Unknown History nebivolol 5 mg tablet 5 mg PO DAILY 01/23/2502/15 Unknown History Allergies Allergy/AdvReac Type Severity Reaction Status Date / Time dog dander Allergy Intermediate Sneezing Verified 05/19/25 16:48 [facility] Past Medical History Medical History Irritable bowel syndrome (IBS) GERD (gastroesophageal reflux disease) Anxiety Asthma COPD (chronic obstructive pulmonary disease) Bipolar disorder Surgical History Surgical History Hx of hernia repair 01/23/2025 Robotic assisted laparoscopic paraesophageal hernia repair with 270 degree fundoplication Family History Family History Mother Family history of cardiovascular disease Family history of malignant neoplasm of gastrointestinal tract Depression Hypertension Sibling Hypertension Family history of coronary artery disease Father Alcoholism Hypertension Heart disease Social History Social History Years smoked: 35 Smoking status: Current every day smoker Tobacco type: cigarettes Smoking end date: 01/11/25 Alcohol intake: current Drinks per week: 15 Alcohol use details: states 6-10 daily but because shes on vacation Substance use: never Substance use type: does not use Do You Feel Safe in your Home?: Yes Lack of Transportation: No Lack of Food: Never True Current Housing: I Have Housing Concerned About Future Housing: No Difficulty Paying Gas/Electric Bills: No Difficulty Paying for Meds: No Currently Unemployed: No Education: High School Diploma/GED Difficulty w/ Childcare or Family Care: No Living arrangements: with family Gender identity (if verbalized by the patient): Female Spiritual care concerns: No Course Vital Signs Vital signs: Vital Signs Temperature 97.9 F 05/19/25 16:51 Pulse Rate 80 05/19/25 16:51 Respiratory Rate 16 05/19/25 16:51 Blood Pressure 141/90 H 05/19/25 16:51 Pulse Oximetry 99 05/19/25 16:51 Oxygen Delivery Room Air 05/19/25 16:51 Temperature 97.9 F 05/19/25 16:51 Pulse Rate 64 05/19/25 20:05 Respiratory Rate 14 05/19/25 20:05 Blood Pressure 110/59 L 05/19/25 20:05 Pulse Oximetry 96 05/19/25 20:05 Oxygen Delivery Room Air 05/19/25 16:51 MDM - Abdominal Pain MDM Narrative Medical decision making narrative: 55-year-old female presenting with abdominal pain. Patient states she has been having abdominal pains since undergoing hiatal hernia surgery in January here with Dr. Vasquez. She reports the pain has increased today and is accompanied by bloating, nausea, and diarrhea. She does report diarrhea has been intermittent for the last few months. No prior removal of gallbladder or appendix. Last bowel movement was today and patient is still able to pass flatulence. She also reports hematuria today. Patient denies fevers/chills, vomiting, melena/hematochezia, chest pain/ shortness of breath. Labs within normal limits. UA demonstrates mild hematuria and some yeast. When discussed UA with patient she did report some pruritus and an abnormal odor. CT abdomen pelvis demonstrates no acute abnormalities. Patient's abdomen is soft without significant pain or signs of surgical abdomen on serial exams. She has been seen in the ED before for the same general concerns. She reports that a GI cocktail and Bentyl has not helped in the past. Patient given Talihina which improved her symptoms. Lab and CT evaluations are reviewed and patient is felt to be a reasonable candidate for outpatient management. Discharge home with a short course of Talihina, Zofran, and Fluconazole. Patient agrees with discussion and after shared medical decision making agrees with plan of care. All questions were answered to the patient's satisfaction. Advised patient of importance of follow-up with her specialty care providers. Given reasons to return to the ED. Medical Records Attestation: I reviewed the patient's medical records. Lab Data Attestation: I reviewed the patient's lab results. 05/19/25 17:34 05/19/25 17:34 Labs: Lab Results 05/19/25 Range/Units 17:34 WBC 6.5 (4.5-10.0) K/mm3 RBC 4.37 (4.2-5.4) M/mm3 Hgb 13.7 (12.0-15.0) g/dL Hct 43.4 (37.0-47.0) % MCV 99.3 (80-100) fl MCH 31.4 (26-34) pg MCHC 31.6 L (32-36) g/dl RDW 13.4 (11.5-14.5) % Plt Count 241 (150-375) k/mm3 MPV 8.9 (7.4-10.4) fl Immature Gran % (Auto) 0.2 (0-0.5) % Neut % (Auto) 70.0 (45.5-73.1) % Lymph % (Auto) 19.2 (18.3-44.2) % [place] % (Auto) 8.4 (2.6-8.5) % Eos % (Auto) 1.7 (0-4.4) % Baso % (Auto) 0.5 (0.2-1.2) % Lymph # (Auto) 1.25 (0.9-3.2) K/mm3 [place] # (Auto) 0.6 (0.1-0.6) K/mm3 Eos # (Auto) 0.1 (0-0.3) K/mm3 Baso # (Auto) 0.0 (0.0-0.1) K/mm3 Abs Immat Gran (auto) 0.01 (0.00-0.031) K/mm3 Absolute Neuts (auto) 4.6 (1.3-6.7) K/mm3 Absolute Nucleated RBC 0.000 (0.0-0.012) K/mm3 Nucleated RBC % 0.0 (0.0-0.2) % Sodium 136 L (137-145) mmol/L Potassium 4.1 (3.4-5.0) mmol/L Chloride 104 (98-107) mmol/L Carbon Dioxide 26 (22-30) mmol/L Anion Gap 6 (4-12) mmol/L BUN 8 D (7-17) mg/dL Creatinine 0.86 (0.7-1.0) mg/dL Estim Creat Clear Calc 79 ml/min Estimated GFR > 60 (59 - ) Glucose 107 (65-110) mg/dL Calcium 9.3 (8.4-10.2) mg/dL Total Bilirubin 0.8 (0.2-1.3) mg/dL AST 37 H (14-36) U/L ALT 33 (6-35) U/L Alkaline Phosphatase 84 (38-126) U/L Total Protein 7.0 (6.3-8.2) g/dL Albumin 4.2 (3.5-5.1) g/dL Lipase 88 (23-300) U/L Urine Color Yellow (Yellow) Urine Appearance Cloudy H (Clear) Urine pH 5.5 (5.0-9.0) Ur Specific [place] 1.014 (1.001-1.035) Urine Protein Negative (Negative) mg/dL Urine Glucose (UA) Negative (Negative) mg/dL Urine Ketones Negative (Negative) mg/dL Ur Blood (Man) 2+ H (Negative) Urine Nitrate Negative (Negative) Urine Bilirubin Negative (Negative) Urine Urobilinogen 0.2 (<2.0) mg/dL Add Ur Microanalysis Reviewed Leukocyte Esterase Rfl 1+ H (Negative) AZEB/UL Urine RBC 11-20 H (0-2) /hpf Urine WBC 0-5 (0-3) /hpf Ur Squamous Epith Cells Few (Few) /hpf Urine Bacteria None seen /hpf Urine Casts 0-2 Urine Yeast (Budding) Present H (None) /hpf Imaging Data Attestation: I personally reviewed and interpreted this imaging study as follows: Radiologist's impression: ITS Impressions Abdomen/Pelvis CT 05/19/25 18:25 IMPRESSION: 1. No etiology identified to explain the patient's symptoms. Follow-up suggested if symptoms persist. Discharge Plan Discharge Clinical Impression: Abdominal pain, Hx of renal colic Patient Disposition: Home Condition: Stable Instructions: Renal Colic (ED), Abdominal Pain (ED) Additional Instructions: Return to the ER if you experience fever, abdominal pain with nausea and vomiting, you are unable to keep down liquids or solids, blood in the stool, pain or burning with urination, or any other symptoms that are concerning to you Small frequent meals. [place] diet. Hydrate with gatorade and water. Take medications as prescribed. Follow up with primary care doctor and specialty providers. Patient Language: Mohawk Prescriptions: New fluconazole 150 mg tablet 150 mg PO ONCE Qty: 1 0RF Rx Instructions: as a single dose hydrocodone-acetaminophen 5-325 mg tablet 1 tablet PO Q8H PRN (Reason: pain) Qty: 10 0RF ondansetron 4 mg tablet,disintegrating 4 mg PO Q6H PRN (Reason: nausea and vomiting) Qty: 20 0RF No Action lamotrigine 150 mg tablet 150 mg PO Q12H Patient Comments: Says takes bid meclizine 12.5 mg tablet 12.5 mg PO QID PRN (Reason: dizziness) albuterol sulfate [Ventolin HFA] 90 mcg/actuation HFA aerosol inhaler 1 puff INHALATION DIRECTED escitalopram oxalate 5 mg tablet 5 mg PO DIRECTED propranolol 10 mg tablet 10 mg PO DAILY lisinopril 20 mg tablet 20 mg PO DAILY rosuvastatin 20 mg tablet 20 mg PO DAILY doxycycline hyclate 20 mg tablet 20 mg PO Q12H metronidazole 0.75 % gel 1 applic TOPICAL BID nebivolol 5 mg tablet 5 mg PO DAILY albuterol sulfate 2.5 mg/0.5 mL solution for nebulization 5 mg inhalation Q6H PRN (Reason: shortness of breath or wheezing) Qty: 30 0RF tamsulosin [Flomax] 0.4 mg capsule 0.4 mg PO DAILY Qty: 14 0RF hydrocodone-acetaminophen 5-325 mg tablet 1 tablet PO Q6H PRN (Reason: pain) Qty: 10 0RF nitrofurantoin monohyd/m-cryst [Macrobid] 100 mg capsule 100 mg PO Q12H 5 Days Qty: 10 0RF Rx Instructions: must administer with a meal/food dicyclomine 20 mg tablet 20 mg PO TID Qty: 270 1RF Rx Instructions: 90 day fill if approved by insurance omeprazole 40 mg capsule,delayed release(DR/EC) See Rx Instructions .ROUTE .COMPLEX Qty: 180 4RF Dose Instruction: 40 MG ORALLY TWICE DAILY BEFORE MEALS Patient Comments: Says has only been taking daily. Rx Instructions: 40 MG ORALLY TWICE DAILY BEFORE MEALS oxycodone-acetaminophen [Endocet] 5-325 mg tablet 0.5 - 1 tablet PO Q4H PRN (Reason: pain) Qty: 10 0RF fluticasone furoate-vilanterol [Breo Ellipta] 200-25 mcg/dose blister with device 1 inh INHALATION DIRECTED Follow-up/Referrals: Virgen,ROD Wiley [Primary Care Provider, Unknown]
[2025-05-19 18:50] VITALS: BP 118/80; PULSE 69; RESP 20; O2SAT 97
[2025-05-19] MEDS: HYDROcodone/acetaminophen (*CRX) 5-325 MG TABLET 1 TAB PO (20:04)
[2025-05-19 20:05] VITALS: BP 110/59; PULSE 64; RESP 14; O2SAT 96
[2025-05-19 20:45] VITALS: BP 110/59; PULSE 64; RESP 14; O2SAT 96
== END 2025-05-19 20:47 | disposition home or self-care (01) ==
PROVIDERS: Family Medicine; PCP Physician Assistant
DX: R10.9 Unspecified abdominal pain (principal); J44.9 Chronic obstructive pulmonary disease, unspecified; K58.9 Irritable bowel syndrome, unspecified; K21.9 Gastro-esophageal reflux disease without esophagitis; F41.9 Anxiety disorder, unspecified; F31.9 Bipolar disorder, unspecified; Z87.891 Personal history of nicotine dependence; Z79.899 Other long term (current) drug therapy
CPT/HCPCS: 36415; 74176; 80053; 81001; 83690; 85025; 87086; 99284; A9270

== ENCOUNTER 2025-05-31 18:52 | Emergency (ER) | payer MEDICARE, MEDICAID, SELFPAY ==
--- OUTSIDE RECORDS SUMMARY | 2024-10-15 03:00 | XMS_ITS ---
Author Organization [facility] Address [facility] [address] [address] Care Team Providers Care Truss Maker Name Role Phone Rachell New PA-C Primary Care Provider Unav ailable Kacy Marroquin Unavailable [phone] Ale Benedict Unavailable [phone] REASON FOR VISIT Therapy Visit Social History Sex Assigned At : Social History Observation Description Sex Assigned At Female Encounters Encounter Location Date Provider Diagnosis [facility] [employer] [place] [id number] [address] 10/15/2024 Ale Ramirez Plan Of Treatment Next Appt Details Provider Name:Kacy brown, 06/12/2025 10:15:00 AM, [facility], [address], [address], Provider Name:Ale Ramirez, 06/14/2025 10:00:00 AM, [address] [place] [address] [address], [address], Progress Notes * KEESHA RUCKERB:1970 ( 55 yo F)Acc No.[id number]:10/15/2024 Patient: Gordo JEREMIAH CUNHA Provider: Sebastian RAMIREZ LCSW :1970 A ge:54 Y S ex:Female Date:10/15/2024 Address:[address] [place] [address] [id number] Pcp:Rachell New PA-C Data: * Chief Complaints: * T herapy Visit Billing Information: * Procedure Codes: * Electronic signature of Roberta Ramirez LCSW on 05/31/2025 at 08:11 PM FORM BUILDING SUPERVISOR Sign off status: Pending Signatures: No Ad Hoc Signature Added * Provider: Sebastian RAMIREZ LCSW Date: 0 10/15/2024 Generated for Verna callahan/Katia/Avila on: 1 07/31/2024 08:11 PM FORM BUILDING SUPERVISOR
--- OUTSIDE RECORDS SUMMARY | 2025-05-14 02:00 | XMS_ITS ---
Author Organization [facility] Address [facility] [address] [address] Care Team Providers Care Supervisor Reactor Fueling Name Role Phone Rachell New PA-C Primary Care Provider Unav ailable Kacy Marroquin Unavailable [phone] Ale Benedict Unavailable [phone] REASON FOR VISIT No calls or messages Social History Sex Assigned At : Social History Observation Description Sex Assigned At Female Encounters Encounter Location Date Provider Diagnosis [facility] [address] [facility] [address] [address] 05/14/2025 Ale Ramirez Plan Of Treatment Next Appt Details Provider Name:Kacy brown, 06/12/2025 10:15:00 AM, [facility] [address], [address], [address], Provider Name:Ale Ramirez, 06/14/2025 10:00:00 AM, [address] [place] [address] [address], [address], [address], Progress Notes * KEESHA RUCKERB:1970 ( 55 yo F)Acc No.[id number]:05/14/2025 Patient: JEREMIAH MERCADO Provider: Sebastian RAMIREZ LCSW :1970 A ge:54 Y S ex:Female Date:05/14/2025 Address:[address] [place] [address] [id number] Pcp:Rachell New PA-C Data: * Chief Complaints: * N o calls or messages Billing Information: * Procedure Codes: * Electronic signature of Roberta Ramirez LCSW on 05/31/2025 at 08:12 PM ELEMENT SETTER Sign off status: Pending Signatures: No Ad Hoc Signature Added * Provider: Sebastian RAMIREZ LCSW Date: 07/14/2024 Generated for Verna callahan/Katia/Avila on: 07/31/2024 08:12 PM ELEMENT SETTER
--- NOTE | ~2025-05-31 | CT_ITS ---
EXAMINATION: CT cervical spine wo con DATE: 05/31/2025 19:44 INDICATION: Neck pain. TECHNIQUE: Computed tomography (CT) of the cervical spine was performed without intravenous contrast. Automated exposure control and iterative reconstruction technique were employed. The dose-length product was 441.62 mGy-cm. COMPARISON: None FINDINGS: No acute bony lesions of cervical vertebrae are seen. Old avulsion fracture of the tip of spinous process of C7. Significant degenerative disc disease at C5-6 level. Loss of cervical lordosis due to paravertebral muscle spasm. IMPRESSION: 1. No acute bony lesions of cervical spine. Old avulsion fracture of the tip of C7 spinous process. 2. Severe degenerative disc disease with facet arthropathy at C5-6 level causing significant compromise of neural foramen especially on the left side. Paravertebral muscle spasm. 3. Symptoms are persistent and not responding to conservative treatment, MRI is indicated. Reviewed, dictated and finalized at location T. ERTING TECHNICIAN IMPRESSION: 1. No acute bony lesions of cervical spine. Old avulsion fracture of the tip of C7 spinous process. 2. Severe degenerative disc disease with facet arthropathy at C5-6 level causin g significant compromise of neural foramen especially on the left side. Paraver tebral muscle spasm. 3. Symptoms are persistent and not responding to conservative treatment, MRI is indicated.
--- NOTE | ~2025-05-31 | CT_ITS ---
EXAMINATION: CT brain wo con DATE: 05/31/2025 19:44 INDICATION: Headache. Vertigo. TECHNIQUE: Computed tomography (CT) of the head was performed without intravenous contrast. The mA was adjusted according to patient size. Iterative reconstruction technique was employed. The dose-length product was 681.00 mGy-cm. COMPARISON: CT brain without contrast dated 02/27/2019. CT angiogram dated 07/24/2024. FINDINGS: No acute intracranial bleed. No ventriculomegaly or midline shift. No effacement of sulci. No acute bony lesions of the cranium. IMPRESSION: 1. No acute findings on the limited CT head without contrast. Reviewed, dictated and finalized at location T. ENTRATOR OPERATOR
[2025-05-31 18:54] VITALS: BP 136/87; PULSE 73; RESP 20; TEMP 36.2; O2SAT 100
--- NOTE | 2025-05-31 19:06 | ED_ITS ---
HPI - Headache General Chief Complaint: Headache <Whitney Johnston LOGISTICS DIRECTOR - Last Filed: 05/31/25 19:08> Stated Complaint: headache, dizziness since yest <Whitney Johnston APRN - Last Filed: 05/31/25 19:08> Time Seen by Provider: 05/31/25 19:06 <Whitney Johnston LOGISTICS DIRECTOR - Last Filed: 05/31/25 19:08> Focused HPI: Patient is a 55-year-old female who presents to the ER with headache, vertigo, visual changes, and neck pain that started 3 days ago. She reports last night her symptoms worsened. Patient reports last night she called EMS, who advised her to come to the ER for evaluation, but patient declined. She reports this morning she started experiencing intermittent left finger numbness and tingling. Patient denies any injury to the area. She endorses nausea but has not had any vomiting. Patient denies any recent episodes of incontinence, saddle anesthesia, or recent fevers. GENERAL: Ill-appearing, well-nourished, and in acute distress. HEAD: Normocephalic, atraumatic. CHEST: Clear to auscultation. ?No respiratory distress. HEART: Regular rate and rhythm.? NEURO: ?Alert and oriented x3. Patient screened in triage and initial orders placed.? ?Additional care and disposition to be based upon?diagnostic testing and treatment. <Whitney Johnston APRN - Last Filed: 05/31/25 19:08> Focused HPI: Patient is a 55-year-old female who presents to the ER with headache, vertigo, visual changes, and neck pain that started 3 days ago. She reports last night her symptoms worsened. Patient reports last night she called EMS, who advised her to come to the ER for evaluation, but patient declined. She reports this morning she started experiencing brief left finger numbness and tingling after she slept on her left hand wrong and went away very quickly after she shook her hand out. Patient denies any injury to the area. She endorses nausea but has not had any vomiting. Patient denies any recent episodes of incontinence, saddle anesthesia, or recent fevers. No traumatic injuries. States she has a remote history of vertigo prescribed meclizine and she took an pill yesterday without any help for vertigo symptoms. States that her vertigo gets worse with position changes and movement and calms down when she rests. States she has some chest pressure today as well but thinks it is just GERD. GENERAL: Well-appearing, well-nourished, and in acute distress. HEAD: Normocephalic, atraumatic. CHEST: Clear to auscultation. ?No respiratory distress. HEART: Regular rate and rhythm.? NEURO: ?Alert and oriented x3. Patient screened in triage and initial orders placed.? ?Additional care and disposition to be based upon?diagnostic testing and treatment. <Juan Rose MD - Last Filed: 06/01/25 00:07> History of Present Illness HPI Narrative: Agree with the HPI above <Juan Rose MD - Last Filed: 06/01/25 00:07> Related Data Home Medications: Home Medications ?Medication ?Instructions ?Recorded ?Confirmed ?Last Taken ?Type albuterol sulfate 90 mcg/actuation 1 puff inhalation A S DIRECTED 11/22/19 02/15/25 01/22/25 History aerosol inhaler (Ventolin HFA) escitalopram oxalate 5 mg tablet 5 mg PO DIRECTED 0 11/22/19 02/15/25 01/22/25 History lamotrigine 150 mg tablet 150 mg PO Q12H 11/22/1902/0101/22/25 History meclizine 12.5 mg tablet 12.5 mg PO QID PRN dizziness 11/22/19 02/15/25 01/22/25 History fluticasone furoate 200 1 inh inhalation DIRECTED 11/23/23 02/15/25 01/22/25 History mcg-vilanterol 25 mcg/dose inhalation powder (Breo Ellipta) lisinopril 20 mg tablet 20 mg PO DAILY 08/20/2402/0101/22/25 History propranolol 10 mg tablet 10 mg PO DAILY 08/20/2402/0101/22/25 History rosuvastatin 20 mg tablet 20 mg PO DAILY 01/17/2502/0101/22/25 History doxycycline hyclate 20 mg tablet 20 mg PO Q12H 5 02/15/25 01/22/25 History metronidazole 0.75 % topical gel 1 applic topical BID rosacea 01/23/25 02/15/25 Unknown History nebivolol 5 mg tablet 5 mg PO DAILY 01/23/2502/15 Unknown History <Whitney Johnston APRN - Last Filed: 05/31/25 19:08> Allergies/Adverse Reactions: Allergies Allergy/AdvReac Type Severity Reaction Status Date / Time dog dander Allergy Intermediate Sneezing Verified 05/31/25 18:53 <Whitney Johnston APRN - Last Filed: 05/31/25 19:08> Review of Systems 2 Review of Systems: As reviewed above in HPI <Juan Rose MD - Last Filed: 06/01/25 00:07> All systems reviewed & are unremarkable except as noted in HPI and below < Juan Rose MD - Last Filed: 06/01/25 00:07> FORMERLY [facility], [facility] Past Medical History Medical History: Medical History Irritable bowel syndrome (IBS) GERD (gastroesophageal reflux disease) Anxiety Asthma COPD (chronic obstructive pulmonary disease) Bipolar disorder <Whitney Johnston APRN - Last Filed: 05/31/25 19:08> Surgical History Surgical History: Surgical History Hx of hernia repair 01/23/2025 Robotic assisted laparoscopic paraesophageal hernia repair with 270 degree fundoplication <Whitney Johnston APRN - Last Filed: 05/31/25 19:08> Family History Family History: Family History Mother Family history of cardiovascular disease Family history of malignant neoplasm of gastrointestinal tract Depression Hypertension Sibling Hypertension Family history of coronary artery disease Father Alcoholism Hypertension Heart disease <Whitney Johnston APRN - Last Filed: 05/31/25 19:08> Social History Social History: Social History Years smoked: 35 Smoking status: Current every day smoker Tobacco type: cigarettes Smoking end date: 01/11/25 Alcohol intake: current Drinks per week: 15 Alcohol use details: states 6-10 daily but because shes on vacation Substance use: never Substance use type: does not use Lack of Transportation: No Lack of Food: Never True Current Housing: I Have Housing Concerned About Future Housing: No Difficulty Paying Gas/Electric Bills: No Difficulty Paying for Meds: No Currently Unemployed: No Education: High School Diploma/GED Difficulty w/ Childcare or Family Care: No Living arrangements: with family Gender identity (if verbalized by the patient): Female Spiritual care concerns: No <Whitney Johnston APRN - Last Filed: 05/31/25 19:08> Exam 2 Narrative: GENERAL: [Well-appearing, well-nourished, and in no acute distress.] HEAD: [Normocephalic, atraumatic.] EYES: [PERRLA and EOMI.] ENT: Nares clear, no rhinorrhea or epistaxis. Mucous membranes moist. NECK: Supple. CHEST: [Clear to auscultation. No respiratory distress.] HEART: [Regular rate and rhythm]. No murmur heard. [Normal peripheral pulses.] ABDOMEN: [Soft, nondistended], [nontender], [No rigidity or guarding] EXTREMITIES: Normal range of motion. [No edema.] SKIN: Warm, dry, no rash. NEURO: No ataxia, no facial droop, no visual deficits, extraocular movements are intact. Full strength and sensation throughout both arms and legs. Speech is clear, NIH 0. PSYCH: [Normal mood and affect.] <Juan Rose MD - Last Filed: 06/01/25 00:07> Course Vital Signs Vital signs: Vital Signs Temperature 36.2 C L 05/31/25 18:54 Pulse Rate 73 05/31/25 18:54 Respiratory Rate 20 05/31/25 18:54 Blood Pressure 136/87 05/31/25 18:54 Pulse Oximetry 100 05/31/25 18:54 Oxygen Delivery Room Air 05/31/25 18:54 Temperature 36.9 C 05/31/25 23:03 Pulse Rate 58 L 05/31/25 23:03 Respiratory Rate 16 05/31/25 23:03 Blood Pressure 106/64 05/31/25 23:03 Pulse Oximetry 97 05/31/25 23:03 Oxygen Delivery Room Air 05/31/25 18:54 <Whitney Johnston APRN - Last Filed: 05/31/25 19:08> Vital Signs Temperature 36.2 C L 05/31/25 18:54 Pulse Rate 73 05/31/25 18:54 Respiratory Rate 20 05/31/25 18:54 Blood Pressure 136/87 05/31/25 18:54 Pulse Oximetry 100 05/31/25 18:54 Oxygen Delivery Room Air 05/31/25 18:54 Temperature 36.9 C 05/31/25 23:03 Pulse Rate 58 L 05/31/25 23:03 Respiratory Rate 16 05/31/25 23:03 Blood Pressure 106/64 05/31/25 23:03 Pulse Oximetry 97 05/31/25 23:03 Oxygen Delivery Room Air 05/31/25 18:54 <Juan oRse MD - Last Filed: 06/01/25 00:07> MDM - Headache MDM Narrative Medical decision making narrative: 55-year-old female who presents to the ER with headache, vertigo, visual changes, and neck pain that started 3 days ago. She reports last night her symptoms worsened. Patient reports last night she called EMS, who advised her to come to the ER for evaluation, but patient declined. She reports this morning she started experiencing brief left finger numbness and tingling after she slept on her left hand wrong and went away very quickly after she shook her hand out. Patient denies any injury to the area. She endorses nausea but has not had any vomiting. Patient denies any recent episodes of incontinence, saddle anesthesia, or recent fevers. No traumatic injuries. States she has a remote history of vertigo prescribed meclizine and she took an pill yesterday without any help for vertigo symptoms. States that her vertigo gets worse with position changes and movement and calms down when she rests. States she has some chest pressure today as well but thinks it is just GERD. No ataxia, no facial droop, no visual deficits, extraocular movements are intact. Full strength and sensation throughout both arms and legs. Speech is clear, NIH 0. Patient has an unremarkable physical examination. Strong symmetric pulses, vital signs are all normal and stable. No fever. Symptoms consistent with a migraine verses peripheral vertigo. Low suspicion central vertigo. No history of migraines but has a history of vertigo and takes meclizine. CT scans of the head neck were obtained. She was treated with Compazine, diphenhydramine, magnesium, fluid bolus and Toradol. Laboratory studies EKG and chest x-ray ordered. CT noncontrast of the head was unremarkable. Cervical spine CT shows no acute bony lesions, old avulsion fracture of C7 spinous process, severe degenerative disc disease of C5 and C6 especially the left side with paravertebral muscle spasm. Patient re-evaluated after treatments. Her laboratory studies EKG and other workup was unremarkable. She had relief of her vertigo and headache and we discussed her CT findings especially on the left side cervical spine region. Offered her admission to the hospital for continued pain and symptom control if it were to recur and further interventions with MRI imaging if needed. Patient would prefer to go home and have this done outpatient. She was referred to neurosurgery and given new prescription for meclizine and a muscle relaxer for her muscle spasms likely causing her tension headache/migraine from severe arthropathy. Patient comfortable with the plan and safe for discharge home at this time. We discussed return precautions. <Juan Rose MD - Last Filed: 06/01/25 00:07> Medical Records Attestation: I reviewed the patient's medical records. <Juan Rose MD - Last Filed: 06/01/25 00:07> Lab Data Attestation: I reviewed the patient's lab results. <Juan Rose MD - Last Filed: 06/01/25 00:07> Result diagrams: 05/31/25 20:44 05/31/25 20:44 <Whitney Johnston APRN - Last Filed: 05/31/25 19:08> Labs: Lab Results 05/31/25 Range/Units 20:44 WBC 7.2 (4.5-10.0) K/mm3 RBC 4.08 L (4.2-5.4) M/mm3 Hgb 13.2 (12.0-15.0) g/dL Hct 40.0 (37.0-47.0) % MCV 98.0 (80-100) fl MCH 32.4 (26-34) pg MCHC 33.0 (32-36) g/dl RDW 13.0 (11.5-14.5) % Plt Count 191 (150-375) k/mm3 MPV 9.0 (7.4-10.4) fl Immature Gran % (Auto) 0.3 (0-0.5) % Neut % (Auto) 69.0 (45.5-73.1) % Lymph % (Auto) 20.2 (18.3-44.2) % Dillon % (Auto) 7.9 (2.6-8.5) % Eos % (Auto) 2.2 (0-4.4) % Baso % (Auto) 0.4 (0.2-1.2) % Lymph # (Auto) 1.46 (0.9-3.2) K/mm3 Dillon # (Auto) 0.6 (0.1-0.6) K/mm3 Eos # (Auto) 0.2 (0-0.3) K/mm3 Baso # (Auto) 0.0 (0.0-0.1) K/mm3 Abs Immat Gran (auto) 0.02 (0.00-0.031) K/mm3 Absolute Neuts (auto) 5.0 (1.3-6.7) K/mm3 Absolute Nucleated RBC 0.000 (0.0-0.012) K/mm3 Nucleated RBC % 0.0 (0.0-0.2) % PT 13.6 (11.1-14.7) Seconds INR 1.0 APTT 29.6 (22.3-36.8) Seconds Sodium 134 L (137-145) mmol/L Potassium 4.2 (3.4-5.0) mmol/L Chloride 104 (98-107) mmol/L Carbon Dioxide 23 (22-30) mmol/L Anion Gap 7 (4-12) mmol/L BUN 9 (7-17) mg/dL Creatinine 0.74 (0.7-1.0) mg/dL Estim Creat Clear Calc 91 ml/min Estimated GFR > 60 (59 - ) Glucose 95 (65-110) mg/dL Calcium 9.3 (8.4-10.2) mg/dL Troponin I < 0.012 (0.000-0.034) ng/mL <Whitney Johnston, LOGISTICS DIRECTOR - Last Filed: 05/31/25 19:08> Lab Results 05/31/25 Range/Units 20:44 WBC 7.2 (4.5-10.0) K/mm3 RBC 4.08 L (4.2-5.4) M/mm3 Hgb 13.2 (12.0-15.0) g/dL Hct 40.0 (37.0-47.0) % MCV 98.0 (80-100) fl MCH 32.4 (26-34) pg MCHC 33.0 (32-36) g/dl RDW 13.0 (11.5-14.5) % Plt Count 191 (150-375) k/mm3 MPV 9.0 (7.4-10.4) fl Immature Gran % (Auto) 0.3 (0-0.5) % Neut % (Auto) 69.0 (45.5-73.1) % Lymph % (Auto) 20.2 (18.3-44.2) % Dillon % (Auto) 7.9 (2.6-8.5) % Eos % (Auto) 2.2 (0-4.4) % Baso % (Auto) 0.4 (0.2-1.2) % Lymph # (Auto) 1.46 (0.9-3.2) K/mm3 Dillon # (Auto) 0.6 (0.1-0.6) K/mm3 Eos # (Auto) 0.2 (0-0.3) K/mm3 Baso # (Auto) 0.0 (0.0-0.1) K/mm3 Abs Immat Gran (auto) 0.02 (0.00-0.031) K/mm3 Absolute Neuts (auto) 5.0 (1.3-6.7) K/mm3 Absolute Nucleated RBC 0.000 (0.0-0.012) K/mm3 Nucleated RBC % 0.0 (0.0-0.2) % PT 13.6 (11.1-14.7) Seconds INR 1.0 APTT 29.6 (22.3-36.8) Seconds Sodium 134 L (137-145) mmol/L Potassium 4.2 (3.4-5.0) mmol/L Chloride 104 (98-107) mmol/L Carbon Dioxide 23 (22-30) mmol/L Anion Gap 7 (4-12) mmol/L BUN 9 (7-17) mg/dL Creatinine 0.74 (0.7-1.0) mg/dL Estim Creat Clear Calc 91 ml/min Estimated GFR > 60 (59 - ) Glucose 95 (65-110) mg/dL Calcium 9.3 (8.4-10.2) mg/dL Troponin I < 0.012 (0.000-0.034) ng/mL <Juan Rose MD - Last Filed: 06/01/25 00:07> Imaging Data Attestation: I personally reviewed and interpreted this imaging study as follows: < Juan Rose MD - Last Filed: 06/01/25 00:07> My impression: Impressions Head CT 05/31/25 19:52 IMPRESSION: 1. No acute findings on the limited CT head without contrast. Cervical Spine CT 05/31/25 19:56 IMPRESSION: 1. No acute bony lesions of cervical spine. Old avulsion fracture of the tip of C7 spinous process. 2. Severe degenerative disc disease with facet arthropathy at C5-6 level causing significant compromise of neural foramen especially on the left side. Paravertebral muscle spasm. 3. Symptoms are persistent and not responding to conservative treatment, MRI is indicated. <Juan Rose MD - Last Filed: 06/01/25 00:07> Discharge Plan Discharge Clinical Impression: Vertigo, Arthropathy of cervical spine, Headache <Whitney Johnston APRN - Last Filed: 05/31/25 19:08> Patient Disposition: Home <Whitney Johnston APRN - Last Filed: 05/31/25 19:08> Condition: Stable <Whitney Johnston APRN - Last Filed: 05/31/25 19:08> Instructions: Antibiotic Form, Vertigo (ED), Acute Headache (DC), Degenerative Disc Disease (ED) <Whitney Johnston APRN - Last Filed: 05/31/25 19:08> Additional Instructions: CT scan shows severe disc disease and degenerative discs of the C5 and C6 region especially in the left side of her neck which could be the source of some your symptoms. CT of the head shows no acute abnormality. Laboratory studies are normal. We treat your vertiginous symptoms with a combination of migraine medications and pain control. We will send you home with medications and have given a referral to a neurosurgeon to evaluate you for your discs. Return with any emergent concerns worsening symptoms or any issues. <Whitney Johnston, WALTRE - Last Filed: 05/31/25 19:08> Patient Language: Fijian <Whitney Johnston APRN - Last Filed: 05/31/25 19:08> Prescriptions: New naproxen 500 mg tablet,delayed release (DR/EC) 500 mg PO BID PRN (Reason: pain) Qty: 30 0RF methocarbamol 750 mg tablet 750 mg PO TID PRN (Reason: pain) Qty: 20 0RF meclizine 25 mg tablet 25 mg PO TID PRN (Reason: dizziness) 10 Days Qty: 30 0RF No Action lamotrigine 150 mg tablet 150 mg PO Q12H Patient Comments: Says takes bid meclizine 12.5 mg tablet 12.5 mg PO QID PRN (Reason: dizziness) albuterol sulfate [Ventolin HFA] 90 mcg/actuation HFA aerosol inhaler 1 puff INHALATION DIRECTED escitalopram oxalate 5 mg tablet 5 mg PO DIRECTED propranolol 10 mg tablet 10 mg PO DAILY lisinopril 20 mg tablet 20 mg PO DAILY rosuvastatin 20 mg tablet 20 mg PO DAILY doxycycline hyclate 20 mg tablet 20 mg PO Q12H metronidazole 0.75 % gel 1 applic TOPICAL BID nebivolol 5 mg tablet 5 mg PO DAILY albuterol sulfate 2.5 mg/0.5 mL solution for nebulization 5 mg inhalation Q6H PRN (Reason: shortness of breath or wheezing) Qty: 30 0RF tamsulosin [Flomax] 0.4 mg capsule 0.4 mg PO DAILY Qty: 14 0RF hydrocodone-acetaminophen 5-325 mg tablet 1 tablet PO Q6H PRN (Reason: pain) Qty: 10 0RF nitrofurantoin monohyd/m-cryst [Macrobid] 100 mg capsule 100 mg PO Q12H 5 Days Qty: 10 0RF Rx Instructions: must administer with a meal/food fluconazole 150 mg tablet 150 mg PO ONCE Qty: 1 0RF Rx Instructions: as a single dose hydrocodone-acetaminophen 5-325 mg tablet 1 tablet PO Q8H PRN (Reason: pain) Qty: 10 0RF ondansetron 4 mg tablet,disintegrating 4 mg PO Q6H PRN (Reason: nausea and vomiting) Qty: 20 0RF dicyclomine 20 mg tablet 20 mg PO TID Qty: 270 1RF Rx Instructions: 90 day fill if approved by insurance omeprazole 40 mg capsule,delayed release(DR/EC) See Rx Instructions .ROUTE .COMPLEX Qty: 180 4RF Dose Instruction: 40 MG ORALLY TWICE DAILY BEFORE MEALS Patient Comments: Says has only been taking daily. Rx Instructions: 40 MG ORALLY TWICE DAILY BEFORE MEALS oxycodone-acetaminophen [Endocet] 5-325 mg tablet 0.5 - 1 tablet PO Q4H PRN (Reason: pain) Qty: 10 0RF fluticasone furoate-vilanterol [Breo Ellipta] 200-25 mcg/dose blister with device 1 inh INHALATION DIRECTED <Whitney Johnston APRN - Last Filed: 05/31/25 19:08> Follow-up/Referrals: Car Carroll MD [Physician, Neurosurgery] - 1 Week Referral Note: C5-C6 arthropathy Virgen,ROD Wiley [Primary Care Provider, Unknown] <Whitney Johnston APRN - Last Filed: 05/31/25 19:08> Time of Disposition: 22:55 <Whitney Johnston APRN - Last Filed: 05/31/25 19:08> 22:55 <Juan Rose MD - Last Filed: 06/01/25 00:07>
--- NOTE | 2025-05-31 20:09 | ECG_ITS ---
Test Date: 2025-05-31 20:38:40 Measurements Intervals [place] Rate: 61 P: 11 MN: 177 QRS: -12 QRSD: 105 T: 4 QT: 415 QTc: 418 Interpretive Statements SINUS RHYTHM BORDERLINE LEFTWARD AXIS BORDERLINE ECG Compared to ECG 04/05/2025 00:28:53 AXIS IS NO LONGER LEFTWARD Electronically Signed On 06-01-2025 08:07:06 TRANSPORTATION SECURITY SCREENER by Deonte Church M.D.
--- OUTSIDE RECORDS SUMMARY | 2025-05-31 20:11 | XMS_ITS | Encounter Summary ---
Author Organization [facility] Facility Care Team Providers Care Natural Resource Specialist Name Role Phone Inez New Primary Care Provider [phone] Candido Guerin MD Unavailable [phone] Anthony Diez MD Unavailable [phone] Encounter Details Date Type Department Care Team (Latest Contact Info) Description 09/26/2015 Orders Only [facility] ProviderVishal MD [address] [place] [id number] Social History Tobacco Use Types Packs/Day Years Used Date Smoking Tobacco: Never Assessed Comments Unknown Sex and Gender Information Value Date Recorded Sex Assigned at Not on file 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
--- OUTSIDE RECORDS SUMMARY | 2025-05-31 20:11 | XMS_ITS | Encounter Summary ---
Author Organization [facility] Healthcare Address [address] [place] [address] Care Team Providers Care Offset Pressman Name Role Phone Inez New Primary Care Provider [phone] Candido Guerin MD Unavailable [phone] Anthony Diez MD Unavailable [phone] Encounter Details Date Type Department Care Team (Late st Contact Info) Description 10/03/[address] 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
--- OUTSIDE RECORDS SUMMARY | 2025-05-31 20:12 | XMS_ITS | Encounter Summary ---
Author Organization [facility] Care Team Providers Care Director Mortgage Name Role Phone Inez New Primary Care Provider [phone] Candido Guerin MD Unavailable [phone] Anthony Diez MD Unavailable [phone] Encounter Details Date Type Department Care Team (Latest Contact Info) Description 10/07/2017 Orders Only [facility] ProviderVishal MD [address] [place] [address] Social History Tobacco Use Types Packs/Day Years Used Date Smoking Tobacco: Never Assessed Comments Unknown Sex and Gender Information Value Date Recorded Sex Assigned at Not on file 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
--- OUTSIDE RECORDS SUMMARY | 2025-05-31 20:12 | XMS_ITS | Encounter Summary ---
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
--- OUTSIDE RECORDS SUMMARY | 2025-05-31 20:12 | XMS_ITS | Encounter Summary ---
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
--- OUTSIDE RECORDS SUMMARY | 2025-05-31 20:12 | XMS_ITS | Encounter Summary ---
Author Organization [facility] Care Team Providers Care Agency Appointments Supervisor Name Role Phone Inez New Primary Care Provider [phone] Candido Guerin MD Unavailable [phone] Anthony Diez MD Unavailable [phone] Encounter Details Date Type Department Care Team (Latest Contact Info) Description 10/01/2016 Orders Only [facility] ProviderVishal MD [address] [place] [id number] Social History Tobacco Use Types Packs/Day Years Used Date Smoking Tobacco: Never Assessed Comments Unknown Sex and Gender Information Value Date Recorded Sex Assigned at Not on file 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
--- OUTSIDE RECORDS SUMMARY | 2025-05-31 20:12 | XMS_ITS | Encounter Summary ---
Author Organization [facility] Healthcare Address [address] [place] [address] Care Team Providers Care Weld Fitter Name Role Phone Inez New Primary Care Provider [phone] Candido Guerin MD Unavailable [phone] Anthony Diez MD Unavailable [phone] Encounter Details Date Type Department Care Team (Late st Contact Info) Description 04/04/[address] 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
--- OUTSIDE RECORDS SUMMARY | 2025-05-31 20:12 | XMS_ITS | Encounter Summary ---
Author Organization [facility] Healthcare Address [address] [place] [address] Care Team Providers Care Staff Anesthetist Name Role Phone Inez New Primary Care Provider [phone]- [phone] Candido Guerin MD Unavailable [phone] Anthony Diez MD Unavailable [phone] Encounter Details Date Type Department Care Team (Late st Contact Info) Description 01/18/[address] 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
--- OUTSIDE RECORDS SUMMARY | 2025-05-31 20:13 | XMS_ITS | Patient Health Record ---
Author Organization [facility] [employer] [facility] Address [address] [facility] [address] [place] [address] Care Team Providers Care Manager Corporate Marketing Name Role Phone Rachell New PA-C Primary Care Provider Unarasheed ruvalcaba Kacy Marroquin Unavailable [phone] Vitaliy Ale Nelson Unavailable [phone] Allergies No Known Allergies Results Component Value [...] a free 30 day supply 05/03/2025 Active FLUoxetine HCl 40 MG Capsule TAKE 1 CAPSULE BY MOUTH DAILY WITH 20MG CAPSULE; Duration: 28 Active Propranolol HCl 10 MG Tablet TAKE 1 TABLET BY MOUTH TWICE A DAY ON EMPTY STOMACH; Duration: 28 Active Rosuvastatin Calcium 20 MG Tablet Oral [...] Aerosol Powder Breath Activated Inhalation *Reorder from Spaces 2 Host for eRx and Interaction Alerts* 11/22/2023 Active Omeprazole 40 MG Capsule Delayed Release Oral 11/22/2023 Active Meloxicam 15 MG Tablet Oral 11/22/2023 Active Naproxen 375 [...] DOSE 60 MG; Duration: 28 days Active hydrOXYzine HCl 25 MG Tablet 1 tablet Oral twice a day; Duration: 28 days As needed 05/03/2025 Active Cyclobenzaprine HCl 10 MG Tablet Oral 11/22/2023 Not-Taking HYDROcodone-Acetamino phen 5-325 MG Tablet Oral 11/22/2023 Not-Rene ing Dexilant 60 MG Capsule Delayed Release Oral 11/22/2023 Not-Taking Reedsburg Carbonate ER 300 mg Tablet Extended Release 1 tablet at bedtime oral daily Active hydrOXYzine HCl 25 MG Tablet TAKE 1 TABLET BY MOUTH TWICE A DAY NEEDED; Duration: 84 Active Immunizations Vaccine Route Administration Date Status Comme nts Influenza, injectable, MDCK, preservative free Unknown 05/14/2019 Administered Influenza, quadrivalent, split virus Unknown 05/14/2019 Administered Source [facility] Code: V00 - C eligibility not determined/unknown Influenza, unspecified formulation Unknown 07/02/2019 Administered Novel [id number], preservative free Unknown 06/10/2020 Administered Novel [id number], preservative free Unknown 04/06/2021 Administered Pfizer Biontech [...] decision-maker Yes Do you have Power of Aircraft Pneudraulics Repairer for Health or [facility]? No Safety issues: Are there any firearms [...] NoDo you have a medical power of student support services director?: NoPublic Health and TravelHave you been to [...] NoDo you have a medical power of student support services director?: NoPublic Health and TravelHave you been to [...] NoDo you have a medical power of student support services director?: NoPublic Health and TravelHave you been to [...] NoDo you have a medical power of student support services director?: NoPublic Health and TravelHave you been to [...] NoDo you have a medical power of student support services director?: NoPublic Health and TravelHave you been to [...] NoDo you have a medical power of student support services director?: NoPublic Health and TravelHave you been to [...] NoDo you have a medical power of student support services director?: NoPublic Health and TravelHave you been to [...] NoDo you have a medical power of student support services director?: NoPublic Health and TravelHave you been to [...] NoDo you have a medical power of student support services director?: NoPublic Health and TravelHave you been to [...] depressed bipolar I disorder without psychotic features (61904192) Bipolar disorder, current episode depressed, severe, without psychotic features (F31.4) 4 Active confirmed Problem Bipolar disorder (39063962) Bipolar disorder, unspecified (F31.9) Active confirmed Problem Generalized anxiety disorder (65582811) Generalized anxiety disorder (F41.1) 4 Active confirmed Problem Posttraumatic stress disorder (98741600) Post-traumatic stress disorder, chronic (F43.12) Active confirmed Problem Borderline personality disorder (42131584) Borderline personality disorder (F60.3) 4 Active confirmed Problem Obstructive sleep apnea syndrome (disorder) (67111290) Obstructive sleep apnea (adult) (pediatric) (G47.33) 4 Active confirmed Problem Tardive dyskinesia (620458870) Tardive dyskinesia (G24.01) Active confirmed Problem Tobacco use (052517500) Nicotine use (Z72.0) Active confirmed Problem Essential hypertension (66763959) Benign essential HTN (I10) Active confirmed Vital Signs Heart Rate 88 /min 05/03/2025 Height-cm 170.18 cm 05/03/2025 Blood pressure diastolic 81 mm Hg 05/03/2025 Weight-kg 102.51 kg 05/03/2025 Height 67.00 in 05/03/2025 Blood pressure systolic 117 mm Hg 05/03/2025 Weight 226 lbs 05/03/2025 BMI 35.39 kg/m2 05/03/2025 Encounters Encounter Location Date Provider Diagnosis [facility] [employer] [place] [id number] [facility] [address] [address] 05/14/2025 Ale Nelson [place] [id number] [facility] [address] [address] 06/01/2024 Kacy Marroquin Bipolar disorder, current episode depressed, severe, without psychotic features F31.4 ; Generalized anxiety disorder F41.1 ; Post-traumatic stress disorder, chronic F43.12 ; Tardive dyskinesia G24.01 ; Borderline personality disorder F60.3 ; Benzodiazepine dependence F13.20 and Obstructive sleep apnea (adult) (pediatric) G47.33 [facility] [address] [facility] [address] [address] 06/19/2024 Ale Nelson Generalized anxiety disorder F41.1 ; Borderline personality disorder F60.3 and Post-traumatic stress disorder, chronic F43.12 [facility] [address] [address] 07/31/2024 Ale Nelson Bipolar disorder, current episode depressed, severe, without psychotic features F31.4 ; Generalized anxiety disorder F41.1 and Borderline personality disorder F60.3 [facility] [address] [address] 07/31/2024 Kacy Marroquin Bipolar disorder, current episode depressed, severe, without psychotic features F31.4 ; Generalized anxiety disorder F41.1 ; Post-traumatic stress disorder, chronic F43.12 ; Tardive dyskinesia G24.01 ; Borderline personality disorder F60.3 and Obstructive sleep apnea (adult) (pediatric) G47.33 [facility] [place] [address] [address] 08/16/2024 Ale Nelson Generalized anxiety disorder F41.1 ; Bipolar disorder, current episode depressed, severe, without psychotic features F31.4 ; Post-traumatic stress disorder, chronic F43.12 and Borderline personality disorder F60.3 [facility] [employer] [place] [address] [place] [address] 08/24/2024 Kacy Marroquin Generalized anxiety disorder F41.1 ; Bipolar disorder, current episode depressed, severe, without psychotic features F31.4 ; Post-traumatic stress disorder, chronic F43.12 ; Tardive dyskinesia G24.01 ; Borderline personality disorder F60.3 ; Nicotine dependence with current use F17.200 ; Benign essential HTN I10 and Obstructive sleep apnea (adult) (pediatric) G47.33 [facility] [employer] [place] [address] [facility] [address] [place] [address] 08/28/2024 Ale Nelson Borderline personality disorder F60.3 ; Bipolar disorder, current episode depressed, severe, without psychotic features F31.4 ; Post-traumatic stress disorder, chronic F43.12 and Generalized anxiety disorder F41.1 [facility] [employer] [place] [address] [facility] [address] [place] [address] 09/03/2024 Ale Nelson Post-traumatic stress disorder, chronic F43.12 ; Bipolar disorder, current episode depressed, severe, without psychotic features F31.4 ; Generalized anxiety disorder F41.1 and Borderline personality disorder F60.3 [facility] [employer] [place] [address] [facility] [address] [place] [address] 09/19/2024 Kacy Marroquin Generalized anxiety disorder F41.1 ; Borderline personality disorder F60.3 ; Post-traumatic stress disorder, chronic F43.12 ; Bipolar disorder, current episode depressed, severe, without psychotic features F31.4 ; Benign essential HTN I10 ; Obstructive sleep apnea (adult) (pediatric) G47.33 ; Nicotine use Z72.0 and Encounter for screening for depression Z13.31 [facility] [employer] [place] [address] [place] [address] 11/16/2024 Ale Nelson Bipolar disorder, current episode depressed, severe, without psychotic features F31.4 ; Post-traumatic stress disorder, chronic F43.12 ; Borderline personality disorder F60.3 ; Generalized anxiety disorder F41.1 and Encounter for screening for depression Z13.31 [facility] [employer] [facility] [address] [facility] [address] [place] [address] 11/19/2024 Kacy Marroquin Bipolar disorder, current episode depressed, severe, without psychotic features F31.4 ; Generalized anxiety disorder F41.1 ; Post-traumatic stress disorder, chronic F43.12 ; Borderline personality disorder F60.3 ; Obstructive sleep apnea (adult) (pediatric) G47.33 ; Nicotine use Z72.0 ; Benign essential HTN I10 and Encounter for screening for depression Z13.31 [facility] [employer] [facility] [address] [facility] [address] [place] [address] 12/24/2024 Kacy Marroquin Bipolar disorder, current episode depressed, severe, without psychotic features F31.4 ; Generalized anxiety disorder F41.1 ; Post-traumatic stress disorder, chronic F43.12 ; Borderline personality disorder F60.3 ; Nicotine use Z72.0 ; Obstructive sleep apnea (adult) (pediatric) G47.33 ; Benign essential HTN I10 and Encounter for screening for depression Z13.31 [facility] [employer] [place] [address] [facility] [address] [place] [address] 02/08/2025 Ale Nelson Borderline personality disorder F60.3 ; Bipolar disorder, current episode depressed, severe, without psychotic features F31.4 ; Post-traumatic stress disorder, chronic F43.12 and Generalized anxiety disorder F41.1 [facility] [employer] [place] [address] [address] 02/08/2025 Kacy Marroquin Generalized anxiety disorder F41.1 ; Bipolar disorder, current episode depressed, severe, without psychotic features F31.4 ; Borderline personality disorder F60.3 and Obstructive sleep apnea (adult) (pediatric) G47.33 [facility] [employer] [facility] [address] [facility] [address] [place] [address] 04/25/2025 Ale Nelson Bipolar disorder, current episode depressed, severe, without psychotic features F31.4 ; Generalized anxiety disorder F41.1 and Post-traumatic stress disorder, chronic F43.12 [facility] [employer] [place] [address] [facility] [address] [place] [address] 05/03/2025 Kacy Marroquin Generalized anxiety disorder F41.1 ; Bipolar disorder, current episode depressed, severe, without psychotic features F31.4 ; Borderline personality disorder F60.3 and Obstructive sleep apnea (adult) (pediatric) G47.33 [facility], [facility] [address] [place] [address] 08/23/2024 Kacy Marroquin [facility], [facility] [address] [place] [address] 12/28/2024 Kacy Marroquin [facility], [facility] [address] [place] [address] 03/08/2025 Kacy Marroquin Generalized anxiety disorder F41.1 [facility], [facility] [address] [place] [address] 05/15/2025 Kacy Marroquin [facility], [facility] [address] [place] [address] 06/08/2024 Kacy Marroquin [facility], [facility] [address] [place] [address] 06/11/2024 Kacy Marroquin Bipolar disorder, current episode depressed, severe, without psychotic features F31.4 ; Tardive dyskinesia G24.01 and Generalized anxiety disorder F41.1 [facility], [facility] [address] [place] [address] 06/18/2024 Kacy Marroquin [facility], [facility] [address] [place] [address] 08/01/2024 Kacy Marroquin [facility], [facility] [address] [place] [address] 08/03/2024 Kacy Marroquin Generalized anxiety disorder F41.1 [facility], [facility] [address] [place] [address] 08/22/2024 Kacy Marroquin [facility], [facility] [address] [place] [address] 08/24/2024 Kacy Marroquin [facility], [facility] [address] [place] [address] 10/15/2024 Kacy Marroquin [facility], [facility] [address] [place] [address] 12/25/2024 Kacy Marroquin Assessments Encounter Date Diagnosis (ICD Code) Assessment Notes Treatment Notes Treatment Clinical Notes Section Notes 06/01/2024 Bipolar disorder, current episode depressed, severe, [...] sorted out. Plans to discuss medications with interactive media designer as upcoming appointment Plan: - Continue lithium 300mg daily - Continue fluoxetine 40mg daily - Continue lamotrigine 200mg twice daily - Monitor for effectiveness and side effects - Reassess need for medication adjustments after cardiology consultation Anxiety Disorder Assessment: Patient experiences ongoing anxiety with panic attacks, particularly during car rides. Reports some improvement with current management. Using propranolol and wnhz-gxa-yvagsd r anxiety patches (Blaise patches with Ashwagandha [...] use - Consider prazosin for nightmares, pending interactive media designer approval due to potential blood pressure effects [...] and blood pressure at home - Obtain interactive media designer's input on psychiatric medications that may affect [...] ng to a new medication Medication considered [id number] Sertraline (Zoloft), CYP2D5 Aripiprazole (Abilify), CYP2D6 Brexpiprazole [...] sorted out. Plans to discuss medications with interactive media designer as upcoming appointment Plan: - Continue lithium 300mg daily - Continue fluoxetine 40mg daily - Continue lamotrigine 200mg twice daily - Monitor for effectiveness and side effects - Reassess need for medication adjustments after cardiology consultation Anxiety Disorder Assessment: Patient experiences ongoing anxiety with panic attacks, particularly during car rides. Reports some improvement with current management. Using propranolol and rexl-uky-ohlzhc r anxiety patches (Blaise patches with Ashwagandha [...] use - Consider prazosin for nightmares, pending interactive media designer approval due to potential blood pressure effects [...] and blood pressure at home - Obtain interactive media designer's input on psychiatric medications that may affect [...] a day [No changes to existing content] 06/01/2024 Post-traumatic stress disorder, chronic (ICD-10 - [...] sorted out. Plans to discuss medications with interactive media designer as upcoming appointment Plan: - Continue lithium 300mg daily - Continue fluoxetine 40mg daily - Continue lamotrigine 200mg twice daily - Monitor for effectiveness and side effects - Reassess need for medication adjustments after cardiology consultation Anxiety Disorder Assessment: Patient experiences ongoing anxiety with panic attacks, particularly during car rides. Reports some improvement with current management. Using propranolol and nnwl-jgq-kohglq r anxiety patches (Blaise patches with Ashwagandha [...] use - Consider prazosin for nightmares, pending interactive media designer approval due to potential blood pressure effects [...] and blood pressure at home - Obtain interactive media designer's input on psychiatric medications that may affect [...] sorted out. Plans to discuss medications with interactive media designer as upcoming appointment Plan: - Continue lithium 300mg daily - Continue fluoxetine 40mg daily - Continue lamotrigine 200mg twice daily - Monitor for effectiveness and side effects - Reassess need for medication adjustments after cardiology consultation Anxiety Disorder Assessment: Patient experiences ongoing anxiety with panic attacks, particularly during car rides. Reports some improvement with current management. Using propranolol and jlhf-iun-zaeinm r anxiety patches (Blaise patches with Ashwagandha [...] use - Consider prazosin for nightmares, pending interactive media designer approval due to potential blood pressure effects [...] and blood pressure at home - Obtain interactive media designer's input on psychiatric medications that may affect [...] sorted out. Plans to discuss medications with interactive media designer as upcoming appointment Plan: - Continue lithium 300mg daily - Continue fluoxetine 40mg daily - Continue lamotrigine 200mg twice daily - Monitor for effectiveness and side effects - Reassess need for medication adjustments after cardiology consultation Anxiety Disorder Assessment: Patient experiences ongoing anxiety with panic attacks, particularly during car rides. Reports some improvement with current management. Using propranolol and vffa-sov-bldjyx r anxiety patches (Blaise patches with Ashwagandha [...] use - Consider prazosin for nightmares, pending interactive media designer approval due to potential blood pressure effects [...] and blood pressure at home - Obtain interactive media designer's input on psychiatric medications that may affect [...] sorted out. Plans to discuss medications with interactive media designer as upcoming appointment Plan: - Continue lithium 300mg daily - Continue fluoxetine 40mg daily - Continue lamotrigine 200mg twice daily - Monitor for effectiveness and side effects - Reassess need for medication adjustments after cardiology consultation Anxiety Disorder Assessment: Patient experiences ongoing anxiety with panic attacks, particularly during car rides. Reports some improvement with current management. Using propranolol and fnrt-zvn-ovwkbn r anxiety patches (Blaise patches with Ashwagandha [...] use - Consider prazosin for nightmares, pending interactive media designer approval due to potential blood pressure effects [...] and blood pressure at home - Obtain interactive media designer's input on psychiatric medications that may affect [...] sorted out. Plans to discuss medications with interactive media designer as upcoming appointment Plan: - Continue lithium 300mg daily - Continue fluoxetine 40mg daily - Continue lamotrigine 200mg twice daily - Monitor for effectiveness and side effects - Reassess need for medication adjustments after cardiology consultation Anxiety Disorder Assessment: Patient experiences ongoing anxiety with panic attacks, particularly during car rides. Reports some improvement with current management. Using propranolol and ltyq-wlu-vqsavk r anxiety patches (Blaise patches with Ashwagandha [...] use - Consider prazosin for nightmares, pending interactive media designer approval due to potential blood pressure effects [...] and blood pressure at home - Obtain interactive media designer's input on psychiatric medications that may affect [...] sorted out. Plans to discuss medications with interactive media designer as upcoming appointment Plan: - Continue lithium 300mg daily - Continue fluoxetine 40mg daily - Continue lamotrigine 200mg twice daily - Monitor for effectiveness and side effects - Reassess need for medication adjustments after cardiology consultation Anxiety Disorder Assessment: Patient experiences ongoing anxiety with panic attacks, particularly during car rides. Reports some improvement with current management. Using propranolol and jmcp-bxl-lptxnp r anxiety patches (Blaise patches with Ashwagandha [...] use - Consider prazosin for nightmares, pending interactive media designer approval due to potential blood pressure effects [...] and blood pressure at home - Obtain interactive media designer's input on psychiatric medications that may affect [...] family stressors and being alone, leading to social services aide visits and hospitalizations. - Plan: - Continue [...] - Plan: - Continue therapy sessions with GERMAN INSTRUCTOR - Explore trauma-focused therapies (e.g., EMDR) to [...] - Plan: - Proceed with the scheduled technical spec appointment on the for further evaluation and management. Weight Loss, Poor Appetite, and Vomiting - Assessment: The patient reports losing weight, not eating much, experiencing dry heaves, and frequent vomiting. - Plan: - Monitor the patient's weight and nutritional intake. - Consider referral to a receipt and report clerk for dietary guidance and support. - Evaluate [...] Recommend the patient to consult with a deputy sheriff bailiff for further evaluation and potential diagnosis. - [...] normal. - Plan: - Schedule follow-up with technical spec - Recommend reducing alcohol consumption - Follow [...] level of alcohol consumption 11/19/2024 Other Nieves Gordon, a 54-year-old female with a history [...] is currently under the care of a timber hand for further evaluation. Plan: - Await results [...] psychiatric medications: - Lamotrigine - Fluoxetine - [place] - Monitor for worsening of mood symptoms [...] - Lamotrigine 200 mg twice daily - [place] 300 mg at bedtime - Fluoxetine 40 [...] and supporting her son's continued sobriety 02/08/2025 Hamilton Gordon, female patient with history of psychiatric [...] Continue Lamotrigine 200mg PO BID - Continue Re[place] 300mg PO at bedtime - Follow up [...] has been taking with her doctor. 05/03/2025 Hamilton Gordon is a female patient with bipolar [...] Details Provider Name:Kacy brown, 06/12/2025 10:15:00 AM, [address], [facility] [address], [place], [address], Provider Name:Ale Nelson, 06/14/2025 10:00:00 AM, [address], [place], [address], Insurance Providers Payer Name Payer Address Payer Phone Subscriber Number Group Number Insured Name Patient Relationship to Insured Coverage Start Date Coverage End Date [facility] [address] [place] [phone] [id number] NIEVES GORDON Self - patient is the insured [place] Medicaid [address] [address] [place] [address] [id number] NIEVES GORDON Self - patient is the [...]
--- OUTSIDE RECORDS SUMMARY | 2025-05-31 20:13 | XMS_ITS | Encounter Summary ---
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
[2025-05-31 20:30] VITALS: BP 124/77; PULSE 60; RESP 16; O2SAT 95
[2025-05-31 20:49] LABS: Hematocrit 40.0 % (37.0-47.0); Hemoglobin 13.2 g/dL (12.0-15.0); Immature Granulocyte Percent A 0.3 % (0-0.5); Lymphocytes Absolute Auto 1.46 K/mm3 (0.9-3.2); Mean Corpuscular HGB Conc 33.0 g/dl (32-36); Mean Corpuscular Hemoglobin 32.4 pg (26-34); Mean Corpuscular Volume 98.0 fl (80-100); Nucleated Red Blood Cells Absolute Auto 0.000 K/mm3 (0.0-0.012); Nucleated Red Blood Cells Perc 0.0 % (0.0-0.2); Platelet Count Result 191 k/mm3 (150-375); Red Blood Count 4.08 M/mm3 (4.2-5.4); White Blood Count 7.2 K/mm3 (4.5-10.0)
[2025-05-31] MEDS: SODIUM CHLORIDE 0.9% IV 1,000 ML 999 ML IV CONT (20:57)
[2025-05-31] MEDS: PROCHLORPERAZINE EDISYLATE 10 MG/2 ML VIAL IV PUSH (20:57)
[2025-05-31] MEDS: MAGNESIUM SULF 2 GM/WATER 50ML 2 GM/50 ML BAG IVPB (20:57)
[2025-05-31] MEDS: KETOROLAC 15 MG/ML VIAL (*BKC) IV PUSH (20:57)
[2025-05-31 21:00] VITALS: BP 108/66; PULSE 61; RESP 15; O2SAT 96
[2025-05-31 21:03] LABS: INR 1.0; Partial Thromboplastin Time 29.6 Seconds (22.3-36.8); Prothrombin Time 13.6 Seconds (11.1-14.7)
[2025-05-31 21:28] LABS: Anion Gap 7 mmol/L (4-12); Blood Urea Nitrogen 9 mg/dL (7-17); Calcium 9.3 mg/dL (8.4-10.2); Carbon Dioxide 23 mmol/L (22-30); Chloride 104 mmol/L (98-107); Estimated CRCL calculation 91 ml/min; Estimated Glomerular Filt Rate > 60; Glucose 95 mg/dL (65-110); Potassium 4.2 mmol/L (3.4-5.0); Sodium 134 mmol/L (137-145)
[2025-05-31 21:30] VITALS: BP 111/69; PULSE 60; RESP 16; O2SAT 95
[2025-05-31 21:35] LABS: Troponin I < 0.012 ng/mL (0.000-0.034)
[2025-05-31 22:00] VITALS: BP 105/52; PULSE 57; RESP 17; O2SAT 95
[2025-05-31 23:03] VITALS: BP 106/64; PULSE 58; RESP 16; TEMP 36.9; O2SAT 97
== END 2025-05-31 23:05 | disposition home or self-care (01) ==
PROVIDERS: Emergency Provider Student in an Organized Health Care Education/Training Program; PCP Physician Assistant
DX: R51.9 Headache, unspecified (principal); R42 Dizziness and giddiness; M47.812 Spondylosis without myelopathy or radiculopathy, cervical region; J44.9 Chronic obstructive pulmonary disease, unspecified; K21.9 Gastro-esophageal reflux disease without esophagitis; K58.9 Irritable bowel syndrome, unspecified; F41.9 Anxiety disorder, unspecified; F31.9 Bipolar disorder, unspecified; Z87.891 Personal history of nicotine dependence; R94.31 Abnormal electrocardiogram [ECG] [EKG]; Z79.899 Other long term (current) drug therapy
CPT/HCPCS: 36415; 70450; 72125; 80048; 84484; 85025; 85610; 85730; 93005; 96365; 96375; 99284; J0780; J1200; J1885; J3475; J7030